=== PATIENT | male | born 1945 | race Caucasian/White ===

== ENCOUNTER 2023-04-11 14:20 | Outpatient (OUT) | payer MEDICARE, SELFPAY ==
--- NOTE | 2023-04-12 13:51 | CONS_ITS ---
CONSULTATION DATE: ??04/12/2023 His last encounter prior to today was on 06/17/2019, causing him to be seen today as a new patient visit. CHIEF COMPLAINT:? Patient presented today with low back pain, worse on the left side; left hip pain and left buttock pain, also on the left side. HISTORY OF PRESENT ILLNESS:? Review of systems, past medical/surgical history were obtained and documented on the health questionnaire and is available upon request. Patient is 78 years old, has had pain in the above mentioned areas for the last six years; however, over the last 1-2 years, he reports having an acceleration of his pain and describes it as 5-6/10 pain, sharp in character, increased with activities such as standing and walking.? He feels most comfortable in the semi- recumbent position.? He denies any change in bowel and bladder habits or new sensorimotor changes in his lower extremities. MEDICATION:? Current medication includes Tylenol at h.s.? He reports that he is unable to tolerate nonsteroidal agents secondary to anticoagulation.? EXAM: ?His examination is notable for patient having no clinical radiculopathy or myelopathy involving the lower extremities.? He had dysesthesia and hyperesthesia overlying the distribution of the left superior gluteal nerve.? He had significant myofascial spasm of his left gluteus medius and moderate myofascial spasm of the lumbar paravertebral muscles also on the left side.? There are no clinical signs consistent with radiculopathy or myelopathy involving his left lower extremity.? He had nothing to suggest facet loading pain clinically on today?s visit. IMPRESSION:? 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 RECOMMENDATIONS:? I have recommended he start baclofen 10 mg pills, half to one b.i.d; aquatic therapy and to proceed with a diagnostic left superior gluteal nerve injection under fluoroscopic guidance.? As part of providing excellent, safe, comprehensive care, the following was completed at our patient's visit: 1. A medication reconciliation and review to ensure accurate knowledge of current/active medications, including asking our patients to inform us about any [id number] medications or herbal remedies/nutritional supplements/alternative remedies. 2. A review to specifically ensure our patients have had annual screening for: elevated body mass index (BMI, see intake chart for exact total), tobacco use, screening for depression, and screening for unhealthy alcohol use.? When screening is concerning, patients are provided with education and the specific recommendation to discuss the concerning health issue and treatment options with their primary care provider. LISBET
== END 2023-04-11 14:21 | disposition home or self-care (01) ==
LOC: PM 14:21
PROVIDERS: PCP Family Medicine; Visit Provider Anesthesiology Pain Medicine
DX: G58.8 Other specified mononeuropathies (principal); G89.29 Other chronic pain; M62.838 Other muscle spasm; M54.50 Low back pain, unspecified; M25.552 Pain in left hip
CPT/HCPCS: G0463

== ENCOUNTER 2023-04-17 07:00 | Outpatient (OUT) | payer MEDICARE, SELFPAY | END 2023-04-17 07:01 | disposition home or self-care (01) | LOC: PST 05-04 17:45 | PROVIDERS: PCP Family Medicine | DX: Z01.818 Encounter for other preprocedural examination (principal); Z86.010 Personal history of colon polyps ==

== ENCOUNTER 2023-04-26 06:19 | Day surgery (SDC) | payer MEDICARE, SELFPAY ==
--- NOTE | 2023-04-26 | OP_ITS ---
OPERATION DATE: ??04/26/2023 PREOPERATIVE DIAGNOSIS:? Personal history of colon polyps. POSTOPERATIVE DIAGNOSIS:? Diminutive cecal polyp, as well as 3 mm descending colon polyp and sigmoid diverticulosis. PROCEDURE:? Colonoscopy to cecum with cold biopsy forceps polypectomy for cecal polyp and cold snare polypectomy for descending colon polyp. SURGEON:? Zhang Vera M.D. ANESTHESIA:? Monitored anesthesia care. ESTIMATED BLOOD LOSS:? Less than 1 mL. INDICATIONS AND CONSENT:? Patient is a 78-year-old male presents for surveillance colonoscopy.? Indications, risks, benefits, alternatives of proceeding with colonoscopy were explained extensively to the patient, including the risks of bleeding, colon perforation or anesthetic complications.? All of his questions were answered.? Informed consent was obtained.? Last colonoscopy was 2016. PROCEDURE:? Patient brought to the operating room, placed in the left lateral decubitus position.? Monitored anesthesia care was provided.? Rectal exam was performed which showed no masses or blood.? The scope was inserted into the anal canal.? Under direct visualization was advanced.? It was advanced to the cecum where cecal markings were clearly identified.? There was noted to be a good prep.? Upon withdrawal of the scope, mucosal surfaces were carefully examined.? Within the cecum, there was noted to be a diminutive, 2 mm polyp that was removed with cold biopsy forceps with good hemostasis.? There were no other mass lesions or inflammatory changes.? There was some moderate sigmoid diverticulosis without inflammatory changes or scarring.? In the descending colon, there was noted to be a 3 mm sessile polyp that was removed with cold snare with good hemostasis.? The scope was retroflexed in the anal canal.? There was no significant hemorrhoidal disease.? Scope was then withdrawn.? Patient tolerated procedure well, was sent to recovery room in good condition. f/u colonoscopy likely in 5 years, but will depend on pathology results. CC:? Master Macdonald
[2023-04-26 06:53] VITALS: BP 117/56; PULSE 62; RESP 20; TEMP 36.4; O2SAT 94; BMI 39.4
[2023-04-26] MEDS: LACTATED RINGER'S SOLUTION 1,000 ML 50 ML IV (07:07)
[2023-04-26 07:52] VITALS: BP 110/49; PULSE 60; RESP 16; O2SAT 94
[2023-04-26 07:57] VITALS: BP 110/49; PULSE 60; RESP 16; O2SAT 94
[2023-04-26 08:07] VITALS: BP 122/73; PULSE 53; RESP 16; O2SAT 96
[2023-04-26 08:22] VITALS: BP 143/67; PULSE 65; RESP 16; O2SAT 97
== END 2023-04-26 08:22 | disposition home or self-care (01) ==
PROVIDERS: PCP Family Medicine; Visit Provider Surgery
PROC: (CPT 45380; principal; 2023-04-26 07:30)
DX: Z86.010 Personal history of colon polyps (principal); K57.30 Diverticulosis of large intestine without perforation or abscess without bleeding; D12.0 Benign neoplasm of cecum; D12.4 Benign neoplasm of descending colon; I48.91 Unspecified atrial fibrillation; I25.10 Atherosclerotic heart disease of native coronary artery without angina pectoris; Z85.46 Personal history of malignant neoplasm of prostate; I10 Essential (primary) hypertension; E66.01 Morbid (severe) obesity due to excess calories; Z79.01 Long term (current) use of anticoagulants; Z79.899 Other long term (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 therapy; Z68.36 Body mass index [BMI] 36.0-36.9, adult
CPT/HCPCS: 45380; 45385; J2704

== ENCOUNTER 2023-04-28 12:15 | Inpatient (IN) | payer MEDICARE, SELFPAY ==
[2023-04-28] VITALS (10 sets, daily range): BP systolic 147–188; BP diastolic 63–88; PULSE 45–94; RESP 14–20; TEMP 36.6–37.2; O2SAT 93–98; BMI 38.0; BMI 39.1; BMI 38.8
--- NOTE | 2023-04-28 12:26 | CT_ITS ---
The [address] [address] Patient Name: JACKSON IQBAL MRN: [id number] date: 1945 Sex: M Assigned Patient Location: ED.MAIN Current Patient Location: [place] Accession/Order Number: [id number] Exam Date: 04/28/2023 12:57 Report Date: 04/29/2023 00:03 At the request of: NATALI SPENCER Procedure: CT head/brain wo con EXAMINATION: CT head/brain wo con HISTORY: fall, pain COMPARISON: No relevant comparison available. TECHNIQUE: Axial CT images were obtained without IV contrast. Dose reduction techniques were achieved by using automated exposure control and/or adjustment of mA and/or kV according to patient size and/or use of iterative reconstruction technique. FINDINGS: BRAIN: No edema, hemorrhage, mass, acute infarction, or inappropriate atrophy. CSF SPACES: No hydrocephalus, subarachnoid hemorrhage, or mass. Appropriate for age. SKULL: No fracture, mass, or other significant visible lesion. SINUSES: No significant mucosal thickening or fluid on the limited views. ORBITS: No appreciable abnormality on the limited views. OTHER: Negative CT/CT head/brain wo con IMPRESSION: 1. No intracranial hemorrhage or appreciable acute abnormality. 2. Age consistent chronic changes. 3. No fracture of the calvarium or scalp hematoma. Preliminary findings were provided to the emergency department at time of imaging. Electronically authenticated by: GUILLERMINA HOPKINS Date: 04/29/2023 00:03
--- NOTE | 2023-04-28 12:26 | CT_ITS ---
The [address] [address] Patient Name: JACKSON IQBAL MRN: [id number] date: 1945 Sex: M Assigned Patient Location: ED.MAIN Current Patient Location: [place] Accession/Order Number: [id number] Exam Date: 04/28/2023 12:57 Report Date: 04/28/2023 19:44 At the request of: NATALI SPENCER Procedure: CT cervical spine wo con EXAMINATION: CT cervical spine wo con HISTORY: pain, fall COMPARISON: No relevant comparison available. TECHNIQUE: Axial, Coronal, and Sagittal images were created without IV contrast. Dose reduction techniques were achieved by using automated exposure control and/or adjustment of mA and/or kV according to patient size and/or use of iterative reconstruction technique. FINDINGS: VERTEBRAL BODIES: Multilevel marked degenerative endplate changes and sclerosis. No fracture spondylolisthesis. FACET JOINTS: Multilevel marked degenerative changes. No disruption or fracture. DISCS: Marked narrowing C3-4 through C7-T1 with large posterior disc-osteophyte complexes causing central canal and foraminal stenosis. CENTRAL CANAL: No evidence of hemorrhage. PARASPINAL AREA: Atherosclerotic disease of the carotid arteries. CT/CT cervical spine wo con IMPRESSION: 1. No appreciable acute abnormality. 2. Multilevel marked degenerative changes of the cervical spine. Electronically authenticated by: GIULLERMINA HOPKINS Date: 04/28/2023 19:44
--- NOTE | 2023-04-28 12:26 | XR_ITS ---
[address] [address] Patient Name: JACKSON IQBAL MRN: [id number] date: 1945 Sex: M Assigned Patient Location: ER Current Patient Location: [place] Accession/Order Number: [id number] Exam Date: 04/28/2023 13:08 Report Date: 04/28/2023 19:41 At the request of: NATALI SPENCER Procedure: XR hip MARIEL EXAMINATION: XR hip MARIEL HISTORY: pain, fall COMPARISON: No relevant comparison available. FINDINGS: RIGHT FINDINGS: BONES: Right hip replacement without hardware fracture or loosening. SOFT TISSUES: No visible soft tissue swelling. OTHER: Negative. LEFT FINDINGS: BONES: Mild degenerative changes of the hip joint. No fracture or dislocation. SOFT TISSUES: No visible soft tissue swelling. OTHER: Negative. XR/XR hip MARIEL IMPRESSION: RIGHT CONCLUSION: No acute bone abnormality. No evidence of hardware failure. LEFT CONCLUSION: No acute bone abnormality. Electronically authenticated by: GUILLERMINA HOPKINS Date: 04/28/2023 19:41
--- NOTE | 2023-04-28 12:26 | ED.LOWEXI1 ---
HPI - Extremity Injury (Lower) General Chief Complaint: Extremity Injury, Lower Stated Complaint: FALL Time Seen by Provider: 04/28/23 12:26 Source: patient Mode of arrival: ambulance Limitations: no limitations History of Present Illness HPI Narrative: This presents emergency department complaining of bilateral hip pain. Patient states he normally ablates with a walker at home. He leaned forward and fell backwards onto his right hip. He complains of pain to bilateral hips. He tried to get up but there was so much pain that EMS had to be called as the patient could not get up. Patient states he hit his head did not have loss of consciousness. He complains of neck pain that he's had chronically. She states he has an outpatient CT scan of the brain and C-spine ordered as an outpatient by his primary care doctor to look after a fall that he sustained also on April 14. Patient denies any nausea, vomiting, diarrhea, constipation, abdominal pain. He denies any chest pain, shortness of breath. He denies any paresthesias or focal weakness. He takes eliquis. Related Data Home Medications Medication Instructions Recorded Confirmed apixaban 5 mg tablet (Eliquis) 5 mg PO BID 04/12/23 04/28/23 atorvastatin 80 mg tablet 80 mg PO DAILY 04/12/23 04/28/23 baclofen 10 mg tablet 10 mg PO BID 04/12/23 04/17/23 carvedilol 12.5 mg tablet 12.5 mg PO BID 04/12/23 04/28/23 furosemide 40 mg tablet 40 mg PO Q12H 04/12/23 04/28/23 hydroxychloroquine 200 mg tablet 200 mg PO DAILY 04/12/23 04/28/23 hyoscyamine sulfate 0.125 mg tablet 0.125 mg PO BID PRN dyspepsia 04/12/23 04/28/23 oxybutynin chloride 5 mg tablet 5 mg PO BID PRN bladder spasms 04/12/23 04/28/23 potassium chloride 10 mEq 10 meq PO DAILY 04/12/23 04/28/23 capsule,extended release Allergies Allergy/AdvReac Type Severity Reaction Status Date / Time No Known Drug Allergies Allergy Verified 04/17/23 13:21 Review of Systems ROS Status of ROS 10 or more systems reviewed and unremarkable except as noted in history and below [facility] Medical History (Updated 04/28/23 @ 17:09 by Laurie Condon MD) Surgical History (Updated 04/17/23 @ 13:49 by Angi Weber) Family History (Updated 04/17/23 @ 13:46 by Angi Weber) Other Family history not known due to adoption Social History (Updated 04/26/23 @ 06:41 by Dia Gillette) Within the past year, how often did you have a drink containing alcohol: never Score interpretation: A score less than 4 is consistent with normal alcohol consumption. Smoking status: Never smoker Non-prescribed substance use: denies use Highest level of school completed/degree received: Associate degree: occupational, technical, vocational program Exam Narrative Exam Narrative: Nurses notes and vital signs reviewed and patient is not hypoxic. General: Nontoxic, Elderly, chronically ill, in no apparent distress. Skin: Warm, dry, no pallor noted. No Rash Head: Normocephalic, atraumatic. Neck: Supple, non-tender. Eye: Pupils are equal, round and EOMI. No scleral icterus. Ears, Nose, Mouth, and Throat: TM clear, no posterior oropharynx erythema or nasal mucosal hypertrophy, uvula is mid-line Oral mucosa is moist Cardiovascular: Regular Rate and Rhythm without murmur, gallop or rub. Respiratory: No accessory muscle use or respiratory distress. Lungs are clear to auscultation, no wheezing, rales or rhonchi Chest Wall: no tenderness Back: No midline thoracic or lumbar vertebral tenderness. No CVA tenderness Musculoskeletal: S2 palpation to the right lateral hip. Range of motion is limited by pain. There is no ecchymosis, erythema, signs of trauma, infection. +2 LE edema. GI: obese, Abdomen is soft, non-distended. Normal bowel sounds. No masses appreciated. No tenderness to palpation. No rebound, guarding, or rigidity noted. Neurological: A&O x4. No cranial nerve dysfunction observed. Moves all extremities. Psychiatric: Cooperative and interactive. Normal mood and affect. Constitutional Vital Signs, click to edit/add: Last Vital Signs Temp 98.8 F 04/28/23 12:22 Pulse 49 L 04/28/23 12:22 Resp 20 04/28/23 12:22 BP 188/72 H 04/28/23 12:22 Pulse Ox 95 04/28/23 12:22 O2 Del Method Nasal Cannula 04/28/23 12:22 Course Vital Signs Vital signs: Vital Signs Temperature 98.8 F 04/28/23 12:22 Pulse Rate 49 L 04/28/23 12:22 Respiratory Rate 20 04/28/23 12:22 Blood Pressure 188/72 H 04/28/23 12:22 Pulse Oximetry 95 04/28/23 12:22 Oxygen Delivery Method Nasal Cannula 04/28/23 12:22 Temperature 98.8 F 04/28/23 12:22 Pulse Rate 49 L 04/28/23 12:22 Respiratory Rate 20 04/28/23 12:22 Blood Pressure 188/72 H 04/28/23 12:22 Pulse Oximetry 95 04/28/23 12:22 Oxygen Delivery Method Nasal Cannula 04/28/23 12:22 MDM - Extremity Injury (Lower) MDM Narrative Medical decision making narrative: Patient given 1 mg of Dilaudid IM. Pain improved however the pain still unable to bear weight. He states he feels very weak, he lives by himself, uses a walker and he is not able to ambulate. CT scan of the pelvis was ordered. The patient will be discussed with Dr. Gould. Differential Diagnosis Differential diagnosis: Likely fracture of femur and fracture of hip Discharge Plan Discharge Chief Complaint: Extremity Injury, Lower Clinical Impression: Frequent falls, Bilateral hip pain Patient Disposition: Admitted as Observation Time of Disposition Decision: 17:09 Condition: Good
[2023-04-28] MEDS: HYDROMORPHONE HCL 1 MG/ML CARTRIDGE IM (12:39)
--- NOTE | 2023-04-28 16:40 | CT_ITS ---
[address] [address] Patient Name: JACKSON IQBAL MRN: [id number] date: 1945 Sex: M Assigned Patient Location: ER Current Patient Location: [place] Accession/Order Number: [id number] Exam Date: 04/28/2023 16:30 Report Date: 04/28/2023 19:47 At the request of: NATALI SPENCER Procedure: CT pelvis wo con EXAMINATION: CT pelvis wo con HISTORY: pain, fall COMPARISON: No relevant comparison available. TECHNIQUE: Axial, Coronal, and Sagittal CT images obtained with IV contrast. Dose reduction techniques were achieved by using automated exposure control and/or adjustment of mA and/or kV according to patient size and/or use of iterative reconstruction technique. FINDINGS: BOWEL: Multiple small diverticula involving the sigmoid colon. No inflammatory changes, free air, free fluid. LYMPH NODES: No adenopathy. URINARY BLADDER: No visible focal wall thickening, lesion, or calculus. PELVIC ORGANS: No visible mass. Pelvic organs appropriate for patient age. ANTERIOR WALL: No hernia. BONES: Right hip replacement. No appreciable fracture, dislocation, or hardware loosening. Moderate degenerative changes of the left hip joint. Marked degenerative disc disease of the visible lower lumbar spine. OTHER: Negative. CT/CT pelvis wo con IMPRESSION: 1. No acute bone abnormality. 2. Right hip replacement without hardware failure. 3. 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 4. Sigmoid diverticulosis. Preliminary findings were provided to the emergency department at time of imaging. Electronically authenticated by: GUILLERMINA HOPKINS Date: 04/28/2023 19:47
[2023-04-28 19:12] LABS: Basophils Percent Auto 0.4 % (0.2-2.0); Eosinophils Absolute Auto 0.1 10^3/uL (0.0-0.7); Eosinophils Percent Auto 1.5 % (0.9-7.0); Hematocrit 35.3 % (42.0-54.0); Hemoglobin 11.6 g/dL (14.0-18.0); Immature Granulocytes Abs Auto 0.02 10^3/uL (0.00-0.03); Immature Granulocytes Pct Auto 0.3 % (0.0-0.5); Lymphocytes Percent Auto 12.7 % (20.5-60.0); Mean Corpuscular HGB Conc 32.9 g/dL (29.9-35.2); Mean Corpuscular Hemoglobin 30.6 pg (25.9-34.0); Mean Corpuscular Volume 93.1 fL (80.0-94.0); Monocytes Absolute Auto 0.7 10^3/uL (0.3-0.8); Monocytes Percent Auto 9.3 % (1.7-12.0); Neutrophils Absolute Auto 6.1 10^3/uL (1.4-6.5); Neutrophils Percent Auto 75.8 % (43.0-75.0); Platelet Count 170 10^3/uL (150-450); Red Blood Count 3.79 10^6/uL (4.70-6.10); Red Cell Distribution Width 13.8 % (11.0-15.0)
[2023-04-28 19:22] LABS: Ammonia 25 umol/L (11-32)
[2023-04-28 19:43] LABS: Alanine Aminotransferase 18 U/L (16-63); Albumin Level 3.2 g/dL (3.4-5.0); Alkaline Phosphatase 73 U/L (46-116); Anion Gap 9.7; Aspartate Amino Transferase 16 U/L (15-37); BUN Creatinine Ratio 10.8; Bilirubin Total 0.7 mg/dL (0.2-1.0); Calcium 8.9 mg/dL (8.5-10.1); Carbon Dioxide 28.3 mmol/L (21.0-32.0); Chloride 108 mmol/L (98-107); Creatine Kinase 159 U/L (39-308); Creatine Kinase MB 2.82 ng/mL (<=3.60); Estimated GFR (African America >60 (>=60); Estimated GFR (Non-African Ame >60 (>=60); Free T3 2.59 pg/mL (2.18-3.98); Globulin 3.1 g/dL; Glucose 90 mg/dL (74-106); Magnesium 1.8 mg/dL (1.8-2.4); Myoglobin 178 ng/mL (16-96); Sodium 143 mmol/L (136-145); Thyroid Stimulating Hormone 1.148 uIU/mL (0.358-3.740); Total Protein 6.3 g/dL (6.4-8.2); Troponin I High Sensitivity 16.1 pg/mL (4.0-76.1)
[2023-04-28] MEDS: BACLOFEN 10 MG TABLET PO (22:28)
[2023-04-29] VITALS (18 sets, daily range): BP systolic 109–169; BP diastolic 54–73; PULSE 44–81; RESP 18–20; TEMP 37–37.3; O2SAT 91–96
[2023-04-29 04:57] LABS: Basophils Percent Auto 0.5 % (0.2-2.0); Eosinophils Absolute Auto 0.3 10^3/uL (0.0-0.7); Eosinophils Percent Auto 4.1 % (0.9-7.0); Hematocrit 32.4 % (42.0-54.0); Hemoglobin 10.5 g/dL (14.0-18.0); Immature Granulocytes Abs Auto 0.02 10^3/uL (0.00-0.03); Immature Granulocytes Pct Auto 0.3 % (0.0-0.5); Lymphocytes Percent Auto 15.7 % (20.5-60.0); Mean Corpuscular HGB Conc 32.4 g/dL (29.9-35.2); Mean Corpuscular Hemoglobin 30.1 pg (25.9-34.0); Mean Corpuscular Volume 92.8 fL (80.0-94.0); Monocytes Absolute Auto 0.7 10^3/uL (0.3-0.8); Monocytes Percent Auto 10.9 % (1.7-12.0); Neutrophils Absolute Auto 4.3 10^3/uL (1.4-6.5); Neutrophils Percent Auto 68.5 % (43.0-75.0); Platelet Count 176 10^3/uL (150-450); Red Blood Count 3.49 10^6/uL (4.70-6.10); Red Cell Distribution Width 13.9 % (11.0-15.0); White Blood Count 6.3 10^3/uL (4.0-11.0)
[2023-04-29 05:57] LABS: Alanine Aminotransferase 16 U/L (16-63); Albumin Globulin Ratio 0.9; Albumin Level 2.8 g/dL (3.4-5.0); Alkaline Phosphatase 63 U/L (46-116); Anion Gap 10.4; Aspartate Amino Transferase 16 U/L (15-37); BUN Creatinine Ratio 12.7; Bilirubin Total 0.5 mg/dL (0.2-1.0); Calcium 8.8 mg/dL (8.5-10.1); Carbon Dioxide 27.5 mmol/L (21.0-32.0); Chloride 108 mmol/L (98-107); Estimated GFR (African America >60 (>=60); Estimated GFR (Non-African Ame >60 (>=60); Globulin 3.1 g/dL; Glucose 93 mg/dL (74-106); Sodium 143 mmol/L (136-145); Total Protein 5.9 g/dL (6.4-8.2); Troponin I High Sensitivity 15.3 pg/mL (4.0-76.1)
[2023-04-29 06:08] LABS: Potassium 2.9 mmol/L (3.5-5.1)
--- NOTE | 2023-04-29 06:23 | PC.NURSE ---
Dr. Pasha Orozco notified of potassium level being 2.9. Will put in order for PO potassium tablets.
[2023-04-29 06:52] LABS: Bilirubin Urine NEGATIVE (NEGATIVE); Blood Urine NEGATIVE (NEGATIVE); Clarity Urine CLEAR (CLEAR); Color Urine YELLOW (YELLOW); Glucose Urine UA NEGATIVE (NEGATIVE); Ketones Urine NEGATIVE (NEGATIVE); Leukocyte Esterase Urine NEGATIVE (NEGATIVE); Nitrite Urine NEGATIVE (NEGATIVE); Protein Urine NEGATIVE (NEG/TRACE); Urobilinogen Urine 0.2 EU/dL (0.2-1.0)
[2023-04-29 06:53] LABS: Bacteria Urine TRACE #/HPF (NONE SEEN); Cast Seen? NONE SEEN #/LPF (NONE SEEN); Crystals Seen? None Seen #/HPF (None Seen); Mucus Urine NONE SEEN (NONE SEEN); RBC Urine 0-2 #/HPF (0-2); Squamous Epithelial Cell Urine RARE #/LPF (NONE/RARE); WBC Urine 0-2 #/HPF (NONE SEEN)
[2023-04-29] MEDS: BACLOFEN 10 MG TABLET PO ×2 (09:06→20:48)
[2023-04-29] MEDS: FUROSEMIDE 40 MG TABLET PO (09:06)
[2023-04-29] MEDS: HYDROXYCHLOROQUINE SULFATE 200 MG TABLET PO (09:06)
[2023-04-29] MEDS: POTASSIUM CHLORIDE 10 MEQ ER TABLET 20 MEQ PO ×2 (09:06→20:47)
[2023-04-29] MEDS: MAGNESIUM OXIDE 400 MG TABLET PO (09:11)
--- NOTE | 2023-04-29 09:27 | P.HP_ITS ---
H&P: HPI History of Present Illness Chief complaint: FALLS Narrative: patient is a 78-year-old male with past medical history of hyperlipidemia, atrial fibrillation, hypertension who presented to the Emergency Room yesterday with a fall. Patient reports that he is been feeling more off lately and has been having more pain symptoms. He recently seen pain management and they started him on baclofen that he was a little uneasy about starting this since he lives at home alone. He fell yesterday backwards from his walker onto his bottom and had been having significant right buttocks pain. Patient presented to the Emergency Room with this pain and CT of the pelvis x-ray of the hip did not show any acute fractures or any change in hardware from previous hip replacement. Patient was admitted for further pain control and PT OT evaluation. At the time of admission patient says that his pain has improved but is still present. He denies any radiation of pain down his right leg and denies any foot drop bowel or bladder incontinence. Patient is also on a blood thinner, eliquis. Denies any head trauma Review of Systems ROS Narrative ROS: a complete review of systems were reviewed with patient and are positive as below or listed in History of Chief Complaint. General: no fever, chills, night sweats Head: no headache, trauma, visual changes, nausea or vomiting Skin: no reported rashes, itching or sores Eyes: no blurriness of vision Ears: no reported hearing loss, vertigo, earache, or tinnitus Throat: no sore throat, hoarseness, swelling of neck, or tongue pain Heart: no chest pain Lungs: no shortness of breath or cough GI: no diarrhea or vomiting/nausea Urinary: no urinary urgency, frequency or pain Neuro: no numbness or tingling HEM: no bleeding issues or bruising ENDO: no thyroid problems Psych: no anxiety or depression [facility] Medical History (Updated 04/29/23 @ 15:15 by Sarita Wilhelm DO) Surgical History Family History Other Family history not known due to adoption Social History Within the past year, how often did you have a drink containing alcohol: never Score interpretation: A score less than 4 is consistent with normal alcohol consumption. 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 [employer] Known occupational exposures/hazards: No Highest level of school completed/degree received: Associate degree: occupational, technical, vocational program Do you want help with school or training: No Are you now , , , , never or living with a partner: In a typical week, how many times do you talk on the telephone with family, friends, or neighbors: 3 or more times per week How often do you get together with friends or relatives: once per week How often do you attend mandaeism or cheondoism services: never Do you belong to any clubs or organizations such as mandaeism groups unions, [employer] or athletic groups, or school groups: no Total score: 1 Score interpretation: A score of less than or equal to 1 indicates the most socially isolated. Little interest or pleasure in doing things: not at all Feeling down, depressed, or hopeless: not at all Feel stressed/tense/nervous/anxious/difficulty sleeping: not at all Due to disability, difficulty making decisions: No Gender Identity: male Meds Home Medications and Allergies Home Medications Medication Instructions Recorded Confirmed Type apixaban 5 mg tablet (Eliquis) 5 mg PO BID 04/12/23 04/28/23 History atorvastatin 80 mg tablet 80 mg PO DAILY 04/12/23 04/28/23 History baclofen 10 mg tablet 10 mg PO BID 04/12/23 04/17/23 History carvedilol 12.5 mg tablet 12.5 mg PO BID 04/12/23 04/28/23 History furosemide 40 mg tablet 40 mg PO Q12H 04/12/23 04/28/23 History hydroxychloroquine 200 mg tablet 200 mg PO DAILY 04/12/23 04/28/23 History hyoscyamine sulfate 0.125 mg tablet 0.125 mg PO BID PRN dyspepsia 04/12/23 04/28/23 History oxybutynin chloride 5 mg tablet 5 mg PO BID PRN bladder spasms 04/12/23 04/28/23 History potassium chloride 10 mEq 10 meq PO DAILY 04/12/23 04/28/23 History capsule,extended release Allergies Allergy/AdvReac Type Severity Reaction Status Date / Time No Known Drug Allergies Allergy Verified 04/17/23 13:21 Exam Narrative Exam Narrative: General: Patient is alert, and oriented to person, place and time with normal affect, proper hygiene Skin: no visible rashes, or ulcers Head: atraumatic, acephalic Eyes: PERRLA, no nystagmus present, conjunctiva clear, no scleral icterus Ears: normal Tympanic Membrane, normal gross auditory acuity Nose: symmetric, no discharge, no maxillary or frontal sinus tenderness Mouth/Throat: no erythema, exudate, or tonsillar enlargement, normal dentition Neck: no masses palpated, normal thyroid, no JVD or audible carotid bruits Heart: Normal rate and rhythm, no murmurs/rubs/gallops Lungs: no audible wheezes, crackles and normal breath sounds all lung ge Abdomen: Normal audible bowel sounds, no distension, No palpable masses, no organomegaly, no rebound/guarding/ or rigidity Musculoskeletal: muscle atrophy noted, ROM is limited due to being in hospital bed, no swelling bilateral lower extremities Vascular: Normal carotid, radial, femoral, posterior tibial, and dorsalis pedis pulses Lymph: no supraclavicular, axillary, or anterior/posterior cervical adenopathy Neuro: CN II-X grossly intact, normal sensation upper and lower extremities Constitutional Vital Signs, click to edit/add: Last Vital Signs Temp 99.1 F 04/29/23 06:00 Pulse 51 L 04/29/23 07:58 Resp 18 04/29/23 06:00 BP 125/55 H 04/29/23 06:00 Pulse Ox 91 L 04/29/23 06:00 O2 Del Method Room Air 04/29/23 06:00 Results Labs Labs: Short CBC 04/28/23 04/29/23 Range/Units 17:37 04:20 WBC 8.0 6.3 (4.0-11.0) 10^3/uL Hgb 11.6 L 10.5 L (14.0-18.0) g/dL Hct 35.3 L 32.4 L (42.0-54.0) % Plt Count 170 176 (150-450) 10^3/uL BMP 04/28/23 04/29/23 19:00 04:20 Sodium 143 143 Potassium 3.0 L 2.9 L* Chloride 108 H 108 H Carbon Dioxide 28.3 27.5 BUN 10.0 10.0 Creatinine 0.93 0.79 Glucose 90 93 Calcium 8.9 8.8 Cardiac Enzymes 04/28/23 Range/Units 19:00 Total Creatine Kinase 159 (39-308) U/L CK-MB (CK-2) 2.82 (<=3.60) ng/mL Liver Function 04/28/23 04/29/23 Range/Units 19:00 04:20 Total Bilirubin 0.7 0.5 (0.2-1.0) mg/dL AST 16 16 (15-37) U/L ALT 18 16 (16-63) U/L Alkaline Phosphatase 73 63 (46-116) U/L Albumin 3.2 L 2.8 L (3.4-5.0) g/dL Urine 04/29/23 Range/Units 05:30 Urine Color Yellow (YELLOW) Urine Clarity Clear (CLEAR) Urine pH 6.0 (5.0-9.0) Ur Specific Chalmers 1.020 (1.005-1.025) Urine Protein Negative (NEG/TRACE) mg/dL Urine Glucose (UA) Negative (NEGATIVE) mg/dL Assessment and Plan Assessment and Plan (1) Frequent falls: Assessment and Plan: could be due to hypotension, decreased HR, hold coreg, pt/ot evaluation (2) Bilateral hip pain: Assessment and Plan: start baclofen, as needed tramadol, no acute fractures (3) Atrial fibrillation: Assessment and Plan: continue eliquis, rate controlled (4) Chronic anticoagulation: (5) Coronary arteriosclerosis: Assessment and Plan: continue atorvastatin (6) Heart failure, diastolic: Assessment and Plan: no acute symptoms, continue lasix (7) Hypertension: (8) Obesity: (9) Hypokalemia: Assessment and Plan: continue to monitor daily and replace Plan full code observation status and is not expected to stay more than 2 midnights, pt/ot eliquis for DVT prophylaxis
[2023-04-29] MEDS: TRAMADOL HCL 50 MG TABLET PO (20:47)
[2023-04-29] MEDS: ACETAMINOPHEN 500 MG TABLET 1000 MG PO (20:47)
[2023-04-29] MEDS: ATORVASTATIN CALCIUM 40 MG TABLET 80 MG PO (20:48)
[2023-04-30] VITALS (21 sets, daily range): BP systolic 126–204; BP diastolic 59–77; PULSE 35–59; RESP 16–18; TEMP 36.6–37.3; O2SAT 91–96
[2023-04-30 05:17] LABS: Basophils Percent Auto 0.4 % (0.2-2.0); Eosinophils Absolute Auto 0.2 10^3/uL (0.0-0.7); Eosinophils Percent Auto 3.3 % (0.9-7.0); Hematocrit 31.9 % (42.0-54.0); Hemoglobin 10.2 g/dL (14.0-18.0); Immature Granulocytes Abs Auto 0.02 10^3/uL (0.00-0.03); Immature Granulocytes Pct Auto 0.3 % (0.0-0.5); Lymphocytes Absolute Auto 1.2 10^3/uL (1.2-3.8); Lymphocytes Percent Auto 16.8 % (20.5-60.0); Mean Corpuscular Volume 93.8 fL (80.0-94.0); Mean Platelet Volume 10.2 fL (9.5-13.5); Monocytes Absolute Auto 0.8 10^3/uL (0.3-0.8); Monocytes Percent Auto 11.9 % (1.7-12.0); Neutrophils Absolute Auto 4.7 10^3/uL (1.4-6.5); Neutrophils Percent Auto 67.3 % (43.0-75.0); Platelet Count 168 10^3/uL (150-450); Red Cell Distribution Width 13.9 % (11.0-15.0)
[2023-04-30 05:39] LABS: Alanine Aminotransferase 14 U/L (16-63); Albumin Globulin Ratio 0.8; Albumin Level 2.6 g/dL (3.4-5.0); Alkaline Phosphatase 64 U/L (46-116); Anion Gap 10.1; Aspartate Amino Transferase 10 U/L (15-37); BUN Creatinine Ratio 15.1; Bilirubin Total 0.4 mg/dL (0.2-1.0); Calcium 8.5 mg/dL (8.5-10.1); Carbon Dioxide 28.1 mmol/L (21.0-32.0); Chloride 110 mmol/L (98-107); Estimated GFR (African America >60 (>=60); Estimated GFR (Non-African Ame >60 (>=60); Globulin 3.1 g/dL; Glucose 103 mg/dL (74-106); Potassium 3.2 mmol/L (3.5-5.1); Sodium 145 mmol/L (136-145); Total Protein 5.7 g/dL (6.4-8.2); Troponin I High Sensitivity 12.7 pg/mL (4.0-76.1)
--- NOTE | 2023-04-30 08:36 | PC.NURSE ---
patient refused breakfast x2. patient states he doesnt usually eat breakfast.
--- NOTE | 2023-04-30 09:37 | P.PN_ITS ---
Progress Note: Subjective Subjective Interval history: patient is a 78-year-old male with past medical history of hyperlipidemia, atrial fibrillation, hypertension who presented to the Emergency Room yesterday with a fall. Patient reports that he is been feeling more off lately and has been having more pain symptoms. He recently seen pain management and they started him on baclofen that he was a little uneasy about starting this since he lives at home alone. He fell yesterday backwards from his walker onto his bottom and had been having significant right buttocks pain. Patient presented to the Emergency Room with this pain and CT of the pelvis x-ray of the hip did not show any acute fractures or any change in hardware from previous hip replacement. Patient was admitted for further pain control and PT OT evaluation. At the time of admission patient says that his pain has improved but is still present. He denies any radiation of pain down his right leg and denies any foot drop bowel or bladder incontinence. Patient is also on a blood thinner, eliquis. Denies any head trauma. This morning is feeling much better, Discussed his low heart rate and snoring/apneic episodes observed by nursing. He follows with Cardiology for his [facility] but has never had issues with low pulse, no chest pain but has been weak. Discussed cardio consult tomorrow and echo. Also discussed Dr. Gould will be back tomorrow. Exam Narrative Exam Narrative: General: Patient is alert, and oriented to person, place and time with normal affect, proper hygiene Skin: no visible rashes, or ulcers Head: atraumatic, acephalic Eyes: PERRLA, no nystagmus present, conjunctiva clear, no scleral icterus Ears: normal Tympanic Membrane, normal gross auditory acuity Nose: symmetric, no discharge, no maxillary or frontal sinus tenderness Mouth/Throat: no erythema, exudate, or tonsillar enlargement, normal dentition Neck: no masses palpated, normal thyroid, no JVD or audible carotid bruits Heart: irregular rate and rhythm, no murmurs/rubs/gallops Lungs: no audible wheezes, crackles and normal breath sounds all lung ge Abdomen: Normal audible bowel sounds, no distension, No palpable masses, no organomegaly, no rebound/guarding/ or rigidity Musculoskeletal: muscle atrophy noted, ROM is limited due to being in hospital bed, no swelling bilateral lower extremities Vascular: Normal carotid, radial, femoral, posterior tibial, and dorsalis pedis pulses Lymph: no supraclavicular, axillary, or anterior/posterior cervical adenopathy Neuro: CN II-X grossly intact, normal sensation upper and lower extremities Constitutional Vital Signs, click to edit/add: Last Vital Signs Temp 97.8 F 04/30/23 04:55 Pulse 50 L 04/30/23 08:00 Resp 16 04/30/23 04:55 BP 153/66 H 04/30/23 04:55 Pulse Ox 93 L 04/30/23 04:55 O2 Del Method Room Air 04/30/23 04:55 Progress Note: Objective Labs Labs: Short CBC 04/30/23 Range/Units 04:50 WBC 7.0 (4.0-11.0) 10^3/uL Hgb 10.2 L (14.0-18.0) g/dL Hct 31.9 L (42.0-54.0) % Plt Count 168 (150-450) 10^3/uL BMP 04/30/23 04:50 Sodium 145 Potassium 3.2 L Chloride 110 H Carbon Dioxide 28.1 BUN 14.0 Creatinine 0.93 Glucose 103 Calcium 8.5 Liver Function 04/30/23 Range/Units 04:50 Total Bilirubin 0.4 (0.2-1.0) mg/dL AST 10 L (15-37) U/L ALT 14 L (16-63) U/L Alkaline Phosphatase 64 (46-116) U/L Albumin 2.6 L (3.4-5.0) g/dL Progress Note: A&P Assessment and Plan (1) Bradycardia with 31-40 beats per minute: Assessment and Plan: patient on Home coreg, this has been held since admission, electrolytes replaced, low potassium resolving, mag normal; I decreased lasix from 40mg daily to 20mg daily, cards consult and echo ordered for tomorrow, follows with [facility] cards; may need outpatient sleep study (2) Frequent falls: Assessment and Plan: could be due to hypotension, decreased HR, hold coreg, pt/ot evaluation (3) Bilateral hip pain: Assessment and Plan: tart baclofen, as needed tramadol, no acute fractures (4) Atrial fibrillation: Assessment and Plan: continue eliquis, rate controlled (5) Chronic anticoagulation: (6) Coronary arteriosclerosis: Assessment and Plan: continue atorvastatin (7) Heart failure, diastolic: Assessment and Plan: no acute symptoms, continue lasix (8) Hypertension: Assessment and Plan: stable (9) Obesity: (10) Hypokalemia: Assessment and Plan: continue to monitor daily and replace Plan full code inpatient status due to worsening condition and new onset bradycardia and is expected to stay more than 2 midnights, pt/ot eliquis for DVT prophylaxis
[2023-04-30] MEDS: HYDROXYCHLOROQUINE SULFATE 200 MG TABLET PO (10:17)
[2023-04-30] MEDS: POTASSIUM CHLORIDE 10 MEQ ER TABLET 20 MEQ PO ×2 (10:18→22:07)
[2023-04-30] MEDS: BACLOFEN 10 MG TABLET PO ×2 (10:18→22:07)
[2023-04-30] MEDS: APIXABAN 5 MG TABLET 2.5 MG PO (10:18)
[2023-04-30] MEDS: TRAMADOL HCL 50 MG TABLET PO (15:11)
[2023-04-30] MEDS: LISINOPRIL 10 MG TABLET PO (15:37)
[2023-04-30] MEDS: ATORVASTATIN CALCIUM 40 MG TABLET 80 MG PO (22:06)
[2023-04-30] MEDS: APIXABAN 5 MG TABLET PO (22:07)
[2023-05-01] VITALS (16 sets, daily range): BP systolic 123–159; BP diastolic 53–95; PULSE 43–77; RESP 16–20; TEMP 36.7–37.3; O2SAT 92–98
[2023-05-01 05:39] LABS: Basophils Percent Auto 0.5 % (0.2-2.0); Eosinophils Absolute Auto 0.3 10^3/uL (0.0-0.7); Eosinophils Percent Auto 3.3 % (0.9-7.0); Hematocrit 32.8 % (42.0-54.0); Hemoglobin 10.3 g/dL (14.0-18.0); Immature Granulocytes Abs Auto 0.02 10^3/uL (0.00-0.03); Immature Granulocytes Pct Auto 0.3 % (0.0-0.5); Lymphocytes Absolute Auto 1.1 10^3/uL (1.2-3.8); Lymphocytes Percent Auto 14.1 % (20.5-60.0); Mean Corpuscular HGB Conc 31.4 g/dL (29.9-35.2); Mean Corpuscular Hemoglobin 29.7 pg (25.9-34.0); Mean Corpuscular Volume 94.5 fL (80.0-94.0); Mean Platelet Volume 10.5 fL (9.5-13.5); Monocytes Absolute Auto 0.9 10^3/uL (0.3-0.8); Monocytes Percent Auto 11.8 % (1.7-12.0); Neutrophils Absolute Auto 5.3 10^3/uL (1.4-6.5); Platelet Count 189 10^3/uL (150-450); Red Blood Count 3.47 10^6/uL (4.70-6.10); Red Cell Distribution Width 14.1 % (11.0-15.0); White Blood Count 7.5 10^3/uL (4.0-11.0)
[2023-05-01 06:07] LABS: Alanine Aminotransferase 15 U/L (16-63); Albumin Globulin Ratio 0.8; Albumin Level 2.6 g/dL (3.4-5.0); Alkaline Phosphatase 65 U/L (46-116); Anion Gap 10.6; Aspartate Amino Transferase 11 U/L (15-37); Bilirubin Total 0.6 mg/dL (0.2-1.0); Calcium 8.5 mg/dL (8.5-10.1); Carbon Dioxide 27.1 mmol/L (21.0-32.0); Chloride 108 mmol/L (98-107); Estimated GFR (African America >60 (>=60); Estimated GFR (Non-African Ame >60 (>=60); Globulin 3.3 g/dL; Glucose 104 mg/dL (74-106); Potassium 3.7 mmol/L (3.5-5.1); Sodium 142 mmol/L (136-145); Total Protein 5.9 g/dL (6.4-8.2)
--- NOTE | 2023-05-01 07:49 | P.PN_ITS ---
Progress Note: Subjective Subjective Interval history: Patient is a still with significant with ambulation. Exam Constitutional Vital Signs, click to edit/add: Last Vital Signs Temp 98.0 F 05/01/23 06:00 Pulse 44 L 05/01/23 06:00 Resp 18 05/01/23 06:00 BP 159/95 H 05/01/23 06:00 Pulse Ox 98 05/01/23 06:00 O2 Del Method Room Air 05/01/23 05:34 Chest Common normals: inspection of chest normal Respiratory Common normals: normal respiratory effort Cardio Common normals: regular rate and regular rhythm Extremity Other: poor range of motion right ankle-check x-ray Progress Note: Objective Labs Labs: Short CBC 05/01/23 Range/Units 04:40 WBC 7.5 (4.0-11.0) 10^3/uL Hgb 10.3 L (14.0-18.0) g/dL Hct 32.8 L (42.0-54.0) % Plt Count 189 (150-450) 10^3/uL BMP 05/01/23 04:40 Sodium 142 Potassium 3.7 Chloride 108 H Carbon Dioxide 27.1 BUN 13.0 Creatinine 0.93 Glucose 104 Calcium 8.5 Liver Function 05/01/23 Range/Units 04:40 Total Bilirubin 0.6 (0.2-1.0) mg/dL AST 11 L (15-37) U/L ALT 15 L (16-63) U/L Alkaline Phosphatase 65 (46-116) U/L Albumin 2.6 L (3.4-5.0) g/dL Progress Note: A&P Assessment and Plan (1) Bradycardia with 31-40 beats per minute: Assessment and Plan: patient on Home coreg, this has been held since admission, electrolytes replaced, low potassium resolving, mag normal; I decreased lasix from 40mg daily to 20mg daily, cards consult and echo ordered for tomorrow, follows with [facility] cards; may need outpatient sleep study (2) Frequent falls: Assessment and Plan: could be due to hypotension, decreased HR, hold coreg, pt/ot evaluation (3) Bilateral hip pain: Assessment and Plan: start baclofen, as needed tramadol, no acute fractures (4) Atrial fibrillation: Assessment and Plan: continue eliquis, rate controlled (5) Chronic anticoagulation: (6) Coronary arteriosclerosis: Assessment and Plan: continue atorvastatin (7) Heart failure, diastolic: Assessment and Plan: no acute symptoms, continue lasix (8) Hypertension: Assessment and Plan: stable (9) Obesity: (10) Hypokalemia: Assessment and Plan: continue to monitor daily and replace Plan full code inpatient status due to worsening condition and new onset bradycardia and is expected to stay more than 2 midnights, pt/ot We will skip the Eliquis now for DVT prophylaxis secondary to frequent falls OT PT evaluation for placement
--- NOTE | 2023-05-01 08:18 | XR_ITS ---
The [address] [address] Patient Name: JACKSON IQBAL MRN: [id number] date: 1945 Sex: M Assigned Patient Location: MS Current Patient Location: MS Accession/Order Number: [id number] Exam Date: 05/01/2023 08:10 Report Date: 05/01/2023 08:39 At the request of: NEO CARRERA Procedure: XR ankle RT 2V PROCEDURE: XR ankle RT 2V COMPARISON: None. HISTORY: ankle pain FINDINGS: BONES:No acute fracture or dislocation. Permeative pattern suggest osteopenia. Mild to moderate degenerative changes with joint space narrowing and marginal osteophyte formation. Moderate plantar enthesopathic spurring of the calcaneus SOFT TISSUES:Negative. No visible soft tissue swelling. EFFUSION:None visible. OTHER: Vascular calcifications XR/XR ankle RT 2V IMPRESSION: Degenerative changes, no acute fracture Electronically authenticated by: NATALIE MOHAN Date: 05/01/2023 08:39
[2023-05-01] MEDS: POTASSIUM CHLORIDE 10 MEQ ER TABLET 20 MEQ PO ×2 (08:35→21:15)
[2023-05-01] MEDS: HYDROXYCHLOROQUINE SULFATE 200 MG TABLET PO (08:35)
[2023-05-01] MEDS: APIXABAN 5 MG TABLET PO ×2 (08:36→21:15)
[2023-05-01] MEDS: FUROSEMIDE 40 MG TABLET 20 MG PO (08:36)
[2023-05-01] MEDS: ORPHENADRINE 60 MG/ 2 ML VIAL 30 MG IV ×2 (08:36→21:15)
--- NOTE | 2023-05-01 11:05 | REH.PTDLY ---
Physical Therapy Daily Note PT Daily Note/Assess Start: 05/01/23 10:54 Freq: Status: Active Protocol: Document 05/01/23 10:54 CIRILO (Rec: 05/01/23 11:05 CIRILO Desktop) Physical Therapy Daily Note/Assessment Time In 10:10 Time Out 10:40 Subjective Pt complains of R hip discomfort but does not rate. Therapeutic Exercise Minutes (minutes) 9 Therapeutic Exercise Units 1 Therapeutic Exercise Treatment B LE exs in chair 10x ea with several cues needed when legs are elevated for exs and proper technique. Therapeutic Activity Minutes (minutes) 14 Therapeutic Activity Units 1 Chair Transfer Ability Maximum Assist,2 Person Assist Therapeutic Activity Comments Attempted sit to stand transfers from chair 3x with Max A. Pt is relying heavily on chair for support and unable to stand up straight. Nurses aide enters room to assist, Max A x2 with pt standing with legs straight and forward flexed and hips. Cues to bring arms to RW, with several cues needed as pt reports he just can't stand, but pt is standing. After several cues, pt brings hands to RW. Cues for gait training with RW Min A x1 and CGA x1, 15 feet around bed. sit to supine Mod Ax1 with B LEs into bed. Total Therapy Minutes 23 Total Physical Therapy Units 2 Daily Note Summary Pt needs several cues during rx for proper form with exs and transfers. Pt seems off at times during conversation. R hip is still uncomfortable per pt.
--- NOTE | 2023-05-01 13:05 | SWNOTE1 ---
SW met with pt to discuss dc needs. Pt lives at home alone, he has 2 daughters who live in [place]. Pt uses a walker at home. Pt states his daughters work, but he can call them for help as needed. Pt is not current with home health. He does have [facility] to get in. Pt and SW spoke with pt in regards to SNF or home health. He did mention doctor spoke with him about it and he is agreeable. Pt's did pass, but he stated she went to rehab at one point. He did talk about [facility] or somewhere in [place] or [place], but wants to talk to daughter first. SW and pt called and left message for daughter. Pt has [employer] and will be a precert. SW to attempt to call daughter again this afternoon. SW did review [place] form with pt, pt voiced understanding, no questions. Pt signed form, original given to pt and copy placed in chart.
--- NOTE | 2023-05-01 13:31 | SWNOTE1 ---
KAMINI spoke with pt's daughter (step-daughter). She does help him out at home as much as she can. She does feel he would benefit from SNF. She does not have a preference. SW did review star ratings from medicare.gov with daughter and she would like to start with [facility] and then it would be [facility] or [facility] as her second/third choice. KAMINI reached out to [facility] to see if they have openings.
--- NOTE | 2023-05-01 14:09 | SWNOTE1 ---
Referral sent to [facility].
[2023-05-01] MEDS: LISINOPRIL 10 MG TABLET PO (14:34)
--- NOTE | 2023-05-01 15:21 | SWNOTE1 ---
[facility] can accept and precert started. SW updated nursing, doctor, pt, and daughter.
[2023-05-01] MEDS: ATORVASTATIN CALCIUM 40 MG TABLET 80 MG PO (21:14)
[2023-05-02] VITALS (8 sets, daily range): BP systolic 143; BP diastolic 81; PULSE 51–71; RESP 16; TEMP 37.1; O2SAT 95
[2023-05-02 04:43] LABS: Basophils Percent Auto 0.4 % (0.2-2.0); Eosinophils Absolute Auto 0.2 10^3/uL (0.0-0.7); Eosinophils Percent Auto 3.1 % (0.9-7.0); Immature Granulocytes Abs Auto 0.02 10^3/uL (0.00-0.03); Immature Granulocytes Pct Auto 0.3 % (0.0-0.5); Lymphocytes Percent Auto 12.4 % (20.5-60.0); Mean Corpuscular HGB Conc 31.3 g/dL (29.9-35.2); Mean Corpuscular Hemoglobin 29.9 pg (25.9-34.0); Mean Corpuscular Volume 95.8 fL (80.0-94.0); Mean Platelet Volume 9.9 fL (9.5-13.5); Monocytes Percent Auto 12.4 % (1.7-12.0); Neutrophils Absolute Auto 5.5 10^3/uL (1.4-6.5); Neutrophils Percent Auto 71.4 % (43.0-75.0); Platelet Count 189 10^3/uL (150-450); Red Blood Count 3.34 10^6/uL (4.70-6.10); Red Cell Distribution Width 14.1 % (11.0-15.0); White Blood Count 7.7 10^3/uL (4.0-11.0)
[2023-05-02 04:58] LABS: Alanine Aminotransferase 16 U/L (16-63); Albumin Globulin Ratio 0.8; Albumin Level 2.6 g/dL (3.4-5.0); Alkaline Phosphatase 62 U/L (46-116); Anion Gap 11.1; Aspartate Amino Transferase 14 U/L (15-37); BUN Creatinine Ratio 16.8; Bilirubin Total 0.9 mg/dL (0.2-1.0); Calcium 8.4 mg/dL (8.5-10.1); Carbon Dioxide 25.9 mmol/L (21.0-32.0); Chloride 108 mmol/L (98-107); Estimated GFR (African America >60 (>=60); Estimated GFR (Non-African Ame >60 (>=60); Globulin 3.3 g/dL; Glucose 99 mg/dL (74-106); Sodium 141 mmol/L (136-145); Total Protein 5.9 g/dL (6.4-8.2)
--- NOTE | 2023-05-02 07:55 | P.PN_ITS ---
Progress Note: Subjective Subjective Interval history: Pain better than previous day Exam Constitutional Vital Signs, click to edit/add: Last Vital Signs Temp 98.8 F 05/02/23 05:17 Pulse 56 L 05/02/23 07:44 Resp 16 05/02/23 05:17 BP 143/81 H 05/02/23 05:17 Pulse Ox 95 05/02/23 05:17 O2 Del Method Room Air 05/02/23 05:17 Documenting provider has reviewed patient's vital signs: yes Common normals: no apparent distress Lymph Lymphatic: no lymphadenopathy noted Respiratory Common normals: normal respiratory effort, no use of accessory muscles and clear to auscultation bilaterally Cardio Common normals: regular rate, regular rhythm and no murmurs Progress Note: Objective Labs Labs: Short CBC 05/02/23 Range/Units 04:32 WBC 7.7 (4.0-11.0) 10^3/uL Hgb 10.0 L (14.0-18.0) g/dL Hct 32.0 L (42.0-54.0) % Plt Count 189 (150-450) 10^3/uL BMP 05/02/23 04:32 Sodium 141 Potassium 4.0 Chloride 108 H Carbon Dioxide 25.9 BUN 16.0 Creatinine 0.95 Glucose 99 Calcium 8.4 L Liver Function 05/02/23 Range/Units 04:32 Total Bilirubin 0.9 (0.2-1.0) mg/dL AST 14 L (15-37) U/L ALT 16 (16-63) U/L Alkaline Phosphatase 62 (46-116) U/L Albumin 2.6 L (3.4-5.0) g/dL Progress Note: A&P Assessment and Plan (1) Bradycardia with 31-40 beats per minute: Assessment and Plan: patient on Home coreg, this has been held since admission, electrolytes replaced, low potassium resolving, mag normal; I decreased lasix from 40mg daily to 20mg daily, cards consult and echo ordered for tomorrow, follows with [facility] cards; may need outpatient sleep study (2) Frequent falls: Assessment and Plan: could be due to hypotension, decreased HR, hold coreg, pt/ot evaluation (3) Bilateral hip pain: Assessment and Plan: start baclofen, as needed tramadol, no acute fractures (4) Atrial fibrillation: Assessment and Plan: continue eliquis, rate controlled (5) Chronic anticoagulation: (6) Coronary arteriosclerosis: Assessment and Plan: continue atorvastatin (7) Heart failure, diastolic: Assessment and Plan: no acute symptoms, continue lasix (8) Hypertension: Assessment and Plan: stable (9) Obesity: (10) Hypokalemia: Assessment and Plan: continue to monitor daily and replace Plan Still planning on rehab. Overall patient's pain is improved. Continue with current medications
[2023-05-02] MEDS: FUROSEMIDE 40 MG TABLET 20 MG PO (08:42)
[2023-05-02] MEDS: POTASSIUM CHLORIDE 10 MEQ ER TABLET 20 MEQ PO (08:42)
[2023-05-02] MEDS: ORPHENADRINE 60 MG/ 2 ML VIAL 30 MG IV (08:42)
[2023-05-02] MEDS: LISINOPRIL 10 MG TABLET 20 MG PO (08:42)
[2023-05-02] MEDS: HYDROXYCHLOROQUINE SULFATE 200 MG TABLET PO (08:43)
[2023-05-02] MEDS: APIXABAN 5 MG TABLET PO (08:43)
--- NOTE | 2023-05-02 09:13 | PM.DS1 ---
DS: Providers Provider Date of admission: 04/28/23 18:17 Primary care physician: Javier Gould MD Consults: 04/28/23 17:35 Consult to Extension Specialist Routine Reason for consult:: nursing home Occupational Therapy Eval and Treat Routine Physical Therapy Eval and Treat Routine 04/30/23 09:33 Physical Therapy Eval and Treat Routine 04/30/23 10:49 Consult to Cardiology Routine Consulting Provider: Hospitalist DS: Diagnosis Discharge Diagnosis (1) Bradycardia with 31-40 beats per minute: (2) Frequent falls: (3) Bilateral hip pain: (4) Atrial fibrillation: (5) Chronic anticoagulation: (6) Coronary arteriosclerosis: (7) Heart failure, diastolic: (8) Hypertension: (9) Obesity: (10) Hypokalemia: DS: Summary Hospital Course Hospital Course: Patient was admitted with fall. Increasing weakness. Had severe pain in his right hip and right ankle. Unable to ambulate initially. He is improved with that somewhat during the last 24 hours. The patient is in need of rehab. Only other complication was patient has some severe bradycardia. Not symptomatic but down into the 30s. Medications were adjusted. His heart rate is in the 50s and 60s without symptoms. At this point he is stable for discharge to rehab. I will follow patient at rehab. Medications see list. Time Spent with Patient Time attestation: Total time spent providing and/or coordinating discharge services: Exam Narrative Exam Narrative: See physical exam from progress note written earlier today Constitutional Vital Signs, click to edit/add: Last Vital Signs Temp 98.8 F 05/02/23 05:17 Pulse 56 L 05/02/23 07:44 Resp 16 05/02/23 05:17 BP 143/81 H 05/02/23 05:17 Pulse Ox 95 05/02/23 05:17 O2 Del Method Room Air 05/02/23 05:17 DS: Data Data Completed and Pending Labs on day of discharge: Labs from last 24 hours 05/02/23 04:32 WBC 7.7 RBC 3.34 L Hgb 10.0 L Hct 32.0 L MCV 95.8 H MCH 29.9 MCHC 31.3 RDW 14.1 Plt Count 189 MPV 9.9 Neut % (Auto) 71.4 Lymph % (Auto) 12.4 L [place] % (Auto) 12.4 H Eos % (Auto) 3.1 Baso % (Auto) 0.4 Neut # (Auto) 5.5 Lymph # (Auto) 1.0 L [place] # (Auto) 1.0 H Eos # (Auto) 0.2 Baso # (Auto) 0.0 Abs Immat Gran (auto) 0.02 Imm/Tot Granulo (auto) 0.3 Sodium 141 Potassium 4.0 Chloride 108 H Carbon Dioxide 25.9 Anion Gap 11.1 BUN 16.0 Creatinine 0.95 Est GFR ( Amer) >60 Est GFR (Non-Af Amer) >60 BUN/Creatinine Ratio 16.8 Glucose 99 Calcium 8.4 L Total Bilirubin 0.9 AST 14 L ALT 16 Alkaline Phosphatase 62 Total Protein 5.9 L Albumin 2.6 L Globulin 3.3 Albumin/Globulin Ratio 0.8 Discharge Plan Discharge Condition: Good Discharge Medications: New acetaminophen [Tylenol Extra Strength] 500 mg Tablet 1,000 mg PO Q6H PRN (Reason: Pain Scale 1-3) Qty: 120 0RF lisinopril 10 mg Tablet 20 mg PO DAILY Qty: 30 0RF potassium chloride [Klor-Con M10] 10 mEq Tablet,Er Particles/Crystals 20 meq PO BID Qty: 60 11RF Continued Eliquis 5 mg tablet 5 mg PO BID hydroxychloroquine 200 mg tablet 200 mg PO DAILY furosemide 40 mg tablet 40 mg PO Q12H potassium chloride 10 mEq capsule, extended release 10 meq PO DAILY atorvastatin 80 mg tablet 80 mg PO DAILY oxybutynin chloride 5 mg tablet 5 mg PO BID PRN (Reason: bladder spasms) hyoscyamine sulfate 0.125 mg tablet 0.125 mg PO BID PRN (Reason: dyspepsia) baclofen 10 mg tablet 10 mg PO BID Patient Comments: Has not started taking yet Rx Instructions: 1/2 to 1 tab twice daily Discontinued carvedilol 12.5 mg tablet 12.5 mg PO BID Rx Instructions: must administer with a meal/food Forms: Portal Instructions
--- NOTE | 2023-05-02 09:19 | SWNOTE1 ---
SW received message from [facility] and pt is approved to go.
--- NOTE | 2023-05-02 10:55 | SWNOTE1 ---
SW did reach out to doctor and pt is stable for discharge today. KAMINI sent over dc med rec to [facility]. KAMINI completed HENS and updated packet. KAMINI set up trips transport for 3-3:30.
--- NOTE | 2023-05-02 10:58 | SWNOTE1 ---
SW updated nursing, [facility], and maya rodriguez pr time and approval.
--- NOTE | 2023-05-02 11:13 | REH.PTDLY ---
Physical Therapy Daily Note PT Daily Note/Assess Start: 05/01/23 10:54 Freq: Status: Active Protocol: Document 05/02/23 11:08 CIRILO (Rec: 05/02/23 11:13 CIRILO Desktop) Physical Therapy Daily Note/Assessment Time In 10:16 Time Out 10:39 Pain Level 0 Pain Level 0 Subjective Pt sitting up in chair, says he's been up for maybe an hour or more. Therapeutic Exercise Minutes (minutes) 8 Therapeutic Exercise Units 1 Therapeutic Exercise Treatment Instructed pt in B LE seated exs 10-15x ea for improved leg strength with demo and cues for larger ROM with LAQ. Therapeutic Activity Minutes (minutes) 15 Therapeutic Activity Units 1 Chair Transfer Ability Moderate Assist Therapeutic Activity Comments Cues with sit to stand transfers to bring legs back and scoot towards edge of chair. LEATHER CARVER on L side to assist pt. Several cues needed, pt attempts 4x to stand with cues for pt to bring hands to RW as his legs are extended and he is standing. Pt states he cannot do so due to bad wrists . Went to get nursing, nursing states pt transfers just fine for them. Nurse enters room and pt is able to stand for nurse on first attempt. Cues for gait training with RW and pt hesitates but does then ambulate CGA-Min A with RW 35 feet with cues. Returns to chair with cues to reach back and not fall into chair. Total Therapy Minutes 23 Total Physical Therapy Units 2 Daily Note Summary Pt informed he gets to go to [facility] today and his response is 'can't I stay another day.' Pt seems to behave differently with nursing compared to therapist today. Several cues needed for pt to perform gait/ transfers safely.
== END 2023-05-02 15:53 | DRG 309 ==
LOC: ER 18:43 → MS 23:33
PROVIDERS: Admitting Provider Family Medicine; Emergency Provider Emergency Medicine; PCP Family Medicine; Visit Provider Family Medicine
DX: R00.1 Bradycardia, unspecified (principal); I50.32 Chronic diastolic (congestive) heart failure; I11.0 Hypertensive heart disease with heart failure; I48.91 Unspecified atrial fibrillation; I25.10 Atherosclerotic heart disease of native coronary artery without angina pectoris; Z79.01 Long term (current) use of anticoagulants; Z79.899 Other long term (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 therapy; Z68.36 Body mass index [BMI] 36.0-36.9, adult; Z91.81 History of falling; M25.552 Pain in left hip; M25.551 Pain in right hip; E87.6 Hypokalemia; E78.5 Hyperlipidemia, unspecified; W18.39XA Other fall on same level, initial encounter; Z96.641 Presence of right artificial hip joint; E66.9 Obesity, unspecified; D12.4 Benign neoplasm of descending colon; D12.0 Benign neoplasm of cecum; Z86.010 Personal history of colon polyps
CPT/HCPCS: 36415; 70450; 72125; 72192; 73522; 73600; 80053; 81001; 82140; 82550; 82553; 83605; 83735; 83874; 83880; 84436; 84443; 84481; 84484; 85025; 87086; 88305; 94667; 94668; 94761; 96372; 96374; 96376; 97110; 97162; 97165; 97530; 97535; 99285; J1170; J2704

== ENCOUNTER 2023-05-15 00:49 | Outpatient (OUT) | payer MEDICARE, SELFPAY ==
[2023-05-15 08:09] LABS: Basophils Absolute Auto 0.1 10^3/uL (0.0-0.1); Basophils Percent Auto 0.8 % (0.2-2.0); Eosinophils Absolute Auto 0.3 10^3/uL (0.0-0.7); Hematocrit 36.8 % (42.0-54.0); Hemoglobin 11.6 g/dL (14.0-18.0); Immature Granulocytes Abs Auto 0.03 10^3/uL (0.00-0.03); Immature Granulocytes Pct Auto 0.5 % (0.0-0.5); Lymphocytes Percent Auto 16.2 % (20.5-60.0); Mean Corpuscular HGB Conc 31.5 g/dL (29.9-35.2); Mean Corpuscular Hemoglobin 30.5 pg (25.9-34.0); Mean Corpuscular Volume 96.8 fL (80.0-94.0); Mean Platelet Volume 10.2 fL (9.5-13.5); Monocytes Absolute Auto 0.6 10^3/uL (0.3-0.8); Neutrophils Absolute Auto 4.4 10^3/uL (1.4-6.5); Neutrophils Percent Auto 68.5 % (43.0-75.0); Platelet Count 282 10^3/uL (150-450); Red Cell Distribution Width 14.6 % (11.0-15.0); White Blood Count 6.4 10^3/uL (4.0-11.0)
[2023-05-15 08:12] LABS: INR 0.97; Partial Thromboplastin Time 28.6 sec (22.3-36.2); Prothrombin Time 10.3 sec (9.0-11.6)
== END 2023-05-15 22:00 | disposition home or self-care (01) ==
LOC: LAB 05-19 08:15
PROVIDERS: PCP Family Medicine; Visit Provider Family Medicine
DX: R60.0 Localized edema (principal); L98.8 Other specified disorders of the skin and subcutaneous tissue
CPT/HCPCS: 36415; 85025; 85610; 85730

== ENCOUNTER 2023-05-31 02:36 | Outpatient (REF) | payer MEDICARE, SELFPAY ==
[2023-05-31 09:26] LABS: Clarity Urine CLEAR (CLEAR); Color Urine DK. RED (YELLOW)
[2023-05-31 09:35] LABS: Protein Urine COLOR INTERFERENCE mg/dL (NEG/TRACE); pH Urine COLOR INTERFERENCE (5.0-9.0)
[2023-05-31 09:36] LABS: Bilirubin Urine COLOR INTERFERENCE (NEGATIVE); Blood Urine COLOR INTERFERENCE (NEGATIVE); Glucose Urine UA COLOR INTERFERENCE mg/dL (NEGATIVE); Ketones Urine COLOR INTERFERENCE mg/dL (NEGATIVE); Leukocyte Esterase Urine COLOR INTERFERENCE (NEGATIVE); Nitrite Urine COLOR INTERFERENCE (NEGATIVE); Urine Microscopic Indicated YES; Urobilinogen Urine COLOR INTERFERENCE EU/dL (0.2-1.0)
[2023-05-31 10:19] LABS: Bacteria Urine TRACE #/HPF (NONE SEEN); Cast Seen? NONE SEEN #/LPF (NONE SEEN); Crystals Seen? None Seen #/HPF (None Seen); Mucus Urine NONE SEEN (NONE SEEN); RBC Urine >100 #/HPF (0-2); Squamous Epithelial Cell Urine FEW #/LPF (NONE/RARE); Urine Culture Indicated ALREADY ORDERED
== END 2023-05-31 02:37 | disposition home or self-care (01) ==
LOC: LAB 02:36
PROVIDERS: PCP Family Medicine; Visit Provider Family Medicine
DX: R31.9 Hematuria, unspecified (principal)
CPT/HCPCS: 81001; 87086; 87150; 87186

== ENCOUNTER 2023-06-02 02:43 | Outpatient (REF) | payer MEDICARE, SELFPAY ==
[2023-06-02 09:17] LABS: Basophils Percent Auto 0.8 % (0.2-2.0); Eosinophils Absolute Auto 0.2 10^3/uL (0.0-0.7); Eosinophils Percent Auto 4.2 % (0.9-7.0); Hematocrit 36.8 % (42.0-54.0); Hemoglobin 11.4 g/dL (14.0-18.0); Immature Granulocytes Abs Auto 0.01 10^3/uL (0.00-0.03); Immature Granulocytes Pct Auto 0.2 % (0.0-0.5); Mean Corpuscular Hemoglobin 30.1 pg (25.9-34.0); Mean Corpuscular Volume 97.1 fL (80.0-94.0); Mean Platelet Volume 10.6 fL (9.5-13.5); Monocytes Absolute Auto 0.5 10^3/uL (0.3-0.8); Monocytes Percent Auto 9.3 % (1.7-12.0); Neutrophils Absolute Auto 3.5 10^3/uL (1.4-6.5); Neutrophils Percent Auto 66.5 % (43.0-75.0); Platelet Count 200 10^3/uL (150-450); Red Blood Count 3.79 10^6/uL (4.70-6.10); Red Cell Distribution Width 14.4 % (11.0-15.0); White Blood Count 5.3 10^3/uL (4.0-11.0)
[2023-06-02 10:24] LABS: Anion Gap 12.5; BUN Creatinine Ratio 15.8; Calcium 9.2 mg/dL (8.5-10.1); Carbon Dioxide 25.5 mmol/L (21.0-32.0); Chloride 107 mmol/L (98-107); Estimated GFR (African America >60 (>=60); Estimated GFR (Non-African Ame >60 (>=60); Glucose 93 mg/dL (74-106); Sodium 141 mmol/L (136-145)
== END 2023-06-02 02:44 | disposition home or self-care (01) ==
LOC: LAB 02:43
PROVIDERS: PCP Family Medicine; Visit Provider Family Medicine
DX: I48.91 Unspecified atrial fibrillation (principal)
CPT/HCPCS: 36415; 80048; 85025

== ENCOUNTER 2023-06-14 15:14 | Outpatient (OUT) | payer MEDICARE, SELFPAY ==
[2023-06-14 15:59] LABS: Basophils Absolute Auto 0.1 10^3/uL (0.0-0.1); Basophils Percent Auto 0.7 % (0.2-2.0); Eosinophils Absolute Auto 0.1 10^3/uL (0.0-0.7); Eosinophils Percent Auto 1.5 % (0.9-7.0); Hematocrit 37.7 % (42.0-54.0); Hemoglobin 11.5 g/dL (14.0-18.0); Immature Granulocytes Abs Auto 0.03 10^3/uL (0.00-0.03); Immature Granulocytes Pct Auto 0.4 % (0.0-0.5); Lymphocytes Absolute Auto 1.2 10^3/uL (1.2-3.8); Lymphocytes Percent Auto 15.9 % (20.5-60.0); Mean Corpuscular HGB Conc 30.5 g/dL (29.9-35.2); Mean Corpuscular Hemoglobin 30.6 pg (25.9-34.0); Mean Corpuscular Volume 100.3 fL (80.0-94.0); Mean Platelet Volume 9.9 fL (9.5-13.5); Monocytes Absolute Auto 0.6 10^3/uL (0.3-0.8); Monocytes Percent Auto 7.8 % (1.7-12.0); Neutrophils Absolute Auto 5.4 10^3/uL (1.4-6.5); Neutrophils Percent Auto 73.7 % (43.0-75.0); Platelet Count 249 10^3/uL (150-450); Red Blood Count 3.76 10^6/uL (4.70-6.10); Red Cell Distribution Width 14.2 % (11.0-15.0); White Blood Count 7.3 10^3/uL (4.0-11.0)
[2023-06-14 16:03] LABS: Bilirubin Urine NEGATIVE (NEGATIVE); Blood Urine LARGE (NEGATIVE); Clarity Urine CLEAR (CLEAR); Color Urine LT. YELLOW (YELLOW); Glucose Urine UA NEGATIVE (NEGATIVE); Ketones Urine NEGATIVE (NEGATIVE); Leukocyte Esterase Urine TRACE (NEGATIVE); Nitrite Urine NEGATIVE (NEGATIVE); Protein Urine TRACE mg/dL (NEG/TRACE); Urobilinogen Urine 0.2 EU/dL (0.2-1.0); pH Urine 5.5 (5.0-9.0)
[2023-06-14 16:07] LABS: INR 0.95; Partial Thromboplastin Time 27.4 sec (22.3-36.2); Prothrombin Time 10.1 sec (9.0-11.6)
[2023-06-14 16:19] LABS: Bacteria Urine TRACE #/HPF (NONE SEEN); Cast Seen? SEEN #/LPF (NONE SEEN); Crystals Seen? None Seen #/HPF (None Seen); Hyaline Casts Urine FEW; RBC Urine 50-75 #/HPF (0-2); Squamous Epithelial Cell Urine RARE #/LPF (NONE/RARE)
[2023-06-14 16:20] LABS: Mucus Urine TRACE (NONE SEEN)
[2023-06-14 16:26] LABS: Alanine Aminotransferase 23 U/L (16-63); Albumin Globulin Ratio 0.9; Albumin Level 3.5 g/dL (3.4-5.0); Alkaline Phosphatase 95 U/L (46-116); Anion Gap 13.7; Aspartate Amino Transferase 16 U/L (15-37); Bilirubin Total 0.4 mg/dL (0.2-1.0); Calcium 9.5 mg/dL (8.5-10.1); Carbon Dioxide 23.7 mmol/L (21.0-32.0); Chloride 105 mmol/L (98-107); Estimated GFR (African America 48 (>=60); Estimated GFR (Non-African Ame 40 (>=60); Globulin 3.7 g/dL; Glucose 84 mg/dL (74-106); Potassium 5.4 mmol/L (3.5-5.1); Sodium 137 mmol/L (136-145); Total Protein 7.2 g/dL (6.4-8.2)
== END 2023-06-14 15:15 | disposition home or self-care (01) ==
LOC: LAB 15:16
PROVIDERS: PCP Family Medicine; Visit Provider Family Medicine
DX: D68.9 Coagulation defect, unspecified (principal)
CPT/HCPCS: 36415; 80053; 81001; 85025; 85610; 85730; 87086

== ENCOUNTER 2023-06-15 10:25 | Observation (INO) | payer MEDICARE, SELFPAY ==
[2023-06-15] VITALS (12 sets, daily range): BP systolic 93–143; BP diastolic 49–66; PULSE 48–71; RESP 16–20; TEMP 36.6–37.1; O2SAT 94–99; BMI 31.6
--- NOTE | 2023-06-15 10:45 | XR_ITS ---
The [address] [address] Patient Name: JACKSON IQBAL MRN: [id number] date: 1945 Sex: M Assigned Patient Location: ER Current Patient Location: ER Accession/Order Number: [id number] Exam Date: 06/15/2023 11:00 Report Date: 06/15/2023 11:31 At the request of: SABINO VO Procedure: XR knee RT 4V EXAM: XR knee RT 4V HISTORY: fall COMPARISON: None. TECHNIQUE: 3 views of the right knee. FINDINGS: Bones: No acute or aggressive appearing bony lesion. Joints: Normal alignment. Severe tricompartmental osteoarthritis. There is joint effusion. Soft tissues: Unremarkable. XR/XR knee RT 4V IMPRESSION: No evidence of fracture. Electronically authenticated by: JEFFY PUAL Date: 06/15/2023 11:31
--- NOTE | 2023-06-15 10:45 | CT_ITS ---
The [address] [address] Patient Name: JACKSON IQBAL MRN: [id number] date: 1945 Sex: M Assigned Patient Location: ER Current Patient Location: ER Accession/Order Number: [id number] Exam Date: 06/15/2023 11:00 Report Date: 06/15/2023 11:40 At the request of: SABINO VO Procedure: CT knee LT wo con EXAM: CT pelvis wo con, CT knee LT wo con HISTORY: pain COMPARISON: 04/28/2023 TECHNIQUE: CT imaging was performed of the pelvis and left knee without intravenous contrast. Multiplanar reformats were performed. Dose reduction techniques were achieved by using automated exposure control and/or adjustment of mA and/or kV according to patient size and/or use of iterative reconstruction technique. FINDINGS: Status post right total hip arthroplasty. No hardware fracture or loosening. There is no acute fracture or dislocation of the pelvis . There is osteoarthritis of the bilateral sacroiliac and left hip joint and visualized lower lumbar spine. No acute finding of the visualized pelvic visceral organs. The soft tissue is unremarkable. No acute fracture or dislocation of the left knee. There is moderate to severe tricompartmental osteoarthritis characterized by joint space narrowing and marginal osteophytes there is knee joint effusion. Visualized quadriceps and patellar tendons are normal. 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 The soft tissue is unremarkable. CT/CT knee LT wo con IMPRESSION: No acute fracture or dislocation. 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 Electronically authenticated by: JEFFY PAUL Date: 06/15/2023 11:40
--- NOTE | 2023-06-15 10:59 | CT_ITS ---
The [address] [address] Patient Name: JACKSON IQBAL MRN: [id number] date: 1945 Sex: M Assigned Patient Location: ER Current Patient Location: ER Accession/Order Number: [id number] Exam Date: 06/15/2023 11:00 Report Date: 06/15/2023 11:40 At the request of: SABINO VO Procedure: CT pelvis wo con EXAM: CT pelvis wo con, CT knee LT wo con HISTORY: pain COMPARISON: 04/28/2023 TECHNIQUE: CT imaging was performed of the pelvis and left knee without intravenous contrast. Multiplanar reformats were performed. Dose reduction techniques were achieved by using automated exposure control and/or adjustment of mA and/or kV according to patient size and/or use of iterative reconstruction technique. FINDINGS: Status post right total hip arthroplasty. No hardware fracture or loosening. There is no acute fracture or dislocation of the pelvis . There is osteoarthritis of the bilateral sacroiliac and left hip joint and visualized lower lumbar spine. No acute finding of the visualized pelvic visceral organs. The soft tissue is unremarkable. No acute fracture or dislocation of the left knee. There is moderate to severe tricompartmental osteoarthritis characterized by joint space narrowing and marginal osteophytes there is knee joint effusion. Visualized quadriceps and patellar tendons are normal. 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 The soft tissue is unremarkable. CT/CT pelvis wo con IMPRESSION: No acute fracture or dislocation. 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 Electronically authenticated by: JEFFY PAUL Date: 06/15/2023 11:40
--- NOTE | 2023-06-15 11:52 | ED.FALL1 ---
HPI - Fall General Chief Complaint: Extremity Injury, Lower Stated Complaint: LT KNEE PAIN/FALL Time Seen by Provider: 06/15/23 10:39 History of Present Illness HPI Narrative: Presenting to us after he had a fall yesterday he lives by himself and he have 2 steps at home when he was trying to get from the garage to the house he apparently fell down he fell in both knees complaining of left knee more than the right knee pain, he has not been able to put weight on his left knee because of the pain The patient have no other complaints although he did mention that he have a history of chronic right hip pain with no acute changes Related Data Home Medications Medication Instructions Recorded Confirmed apixaban 5 mg tablet (Eliquis) 5 mg PO BID 04/12/23 04/28/23 atorvastatin 80 mg tablet 80 mg PO .QHS 04/12/23 05/02/23 baclofen 10 mg tablet 10 mg PO BID 04/12/23 04/17/23 furosemide 40 mg tablet 40 mg PO Q12H 04/12/23 04/28/23 hydroxychloroquine 200 mg tablet 200 mg PO DAILY 04/12/23 04/28/23 hyoscyamine sulfate 0.125 mg tablet 0.125 mg PO BID PRN dyspepsia 04/12/23 04/28/23 oxybutynin chloride 5 mg tablet 5 mg PO BID PRN bladder spasms 04/12/23 04/28/23 potassium chloride 10 mEq 10 meq PO DAILY 04/12/23 04/28/23 capsule,extended release Previous Rx's Medication Instructions Recorded acetaminophen 500 mg tablet 1,000 mg PO Q6H PRN Pain Scale 1-3 05/02/23 (Tylenol Extra Strength) #120 tabs lisinopril 10 mg tablet 20 mg PO DAILY #30 tabs 05/02/23 potassium chloride 10 mEq 20 meq PO BID #60 tabs 05/02/23 tablet,extended release(part/cryst) (Klor-Con M) Allergies Allergy/AdvReac Type Severity Reaction Status Date / Time No Known Drug Allergies Allergy Verified 06/15/23 10:29 Review of Systems ROS Status of ROS 10 or more systems reviewed and unremarkable except as noted in history and below [facility] Medical History (Updated 06/15/23 @ 11:58 by Charo Sinclair MD) Surgical History Family History Other Family history not known due to adoption Social History Within the past year, how often did you have a drink containing alcohol: never Score interpretation: A score less than 4 is consistent with normal alcohol consumption. 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 Known occupational exposures/hazards: No Highest level of school completed/degree received: Associate degree: occupational, technical, vocational program Do you want help with school or training: No Are you now , , , , never or living with a partner: In a typical week, how many times do you talk on the telephone with family, friends, or neighbors: 3 or more times per week How often do you get together with friends or relatives: once per week How often do you attend jehovah's witness or roman catholic services: never Do you belong to any clubs or organizations such as jehovah's witness groups unions, [employer] or athletic groups, or school groups: no Total score: 1 Score interpretation: A score of less than or equal to 1 indicates the most socially isolated. Little interest or pleasure in doing things: not at all Feeling down, depressed, or hopeless: not at all Feel stressed/tense/nervous/anxious/difficulty sleeping: not at all Due to disability, difficulty making decisions: No Gender Identity: male Exam Narrative Exam Narrative: Nurses notes and vital signs reviewed and patient is not hypoxic. General: Well-appearing and in no apparent distress. Skin: Warm, dry, no pallor noted. No rash. Head: Normocephalic, atraumatic. Neck: Supple, non-tender. Eye: Pupils are equal, round and EOMI. No scleral icterus. Ears, Nose, Mouth, and Throat: TM are clear, no nasal mucosal hypertrophy. Oral mucosa is moist, no posterior oropharynx erythema, uvula is mid-line Cardiovascular: Regular Rate and Rhythm without murmur, gallop or rub. Respiratory: No accessory muscle use or respiratory distress. Lungs are clear to auscultation, no wheezing, rales or rhonchi Chest Wall: no tenderness Back: No midline thoracic or lumbar vertebral tenderness. No CVA tenderness Musculoskeletal: Patient have extensive swelling of the left knee and limitation due to double the size of the right knee and the patient still have some tenderness on the palpation of the patella on the right side but on the left side the patient have limited flexion due to the effusion, no open wounds and there is tenderness on palpation of the patella as well GI: Abdomen is soft, non-distended. Normal bowel sounds. No masses appreciated. No tenderness to palpation. No rebound, guarding, or rigidity noted. Neurological: A&O x4. No cranial nerve dysfunction observed. No truncal ataxia. Moves all extremities. Sensation intact. Psychiatric: Cooperative and interactive. Normal mood and affect. Constitutional Vital Signs, click to edit/add: Last Vital Signs Temp 98 F 06/15/23 10:27 Pulse 71 06/15/23 10:27 Resp 16 06/15/23 10:27 BP 128/65 06/15/23 10:27 Pulse Ox 99 06/15/23 10:27 O2 Del Method Room Air 06/15/23 10:27 Course Vital Signs Vital signs: Vital Signs Temperature 98 F 06/15/23 10:27 Pulse Rate 71 06/15/23 10:27 Respiratory Rate 16 06/15/23 10:27 Blood Pressure 128/65 06/15/23 10:27 Pulse Oximetry 99 06/15/23 10:27 Oxygen Delivery Method Room Air 06/15/23 10:27 Temperature 98 F 06/15/23 10:27 Pulse Rate 71 06/15/23 10:27 Respiratory Rate 16 06/15/23 10:27 Blood Pressure 128/65 06/15/23 10:27 Pulse Oximetry 99 06/15/23 10:27 Oxygen Delivery Method Room Air 06/15/23 10:27 MDM - Fall MDM Narrative Medical decision making narrative: The patient x-ray of the right knee as well as a CT of the left knee showed no acute significant pathology but my concern of the fact that the patient has not been able to get out of the bed since yesterday and with the swelling and the fact that I want him to have an Alvin wrap or knee immobilizer he is not going to be managing his daily activity and able to take care of him self getting out of the bed at home alone The patient will be admitted for physical therapy assessment and pain management Discharge Plan Discharge Chief Complaint: Extremity Injury, Lower Clinical Impression: Contusion of knee, Effusion of bursa of left knee, Acute bilateral knee pain, Fall Patient Disposition: Admitted As Inpatient Time of Disposition Decision: 11:58
--- NOTE | 2023-06-15 12:49 | PC.NURSE ---
1230 - Called pt's daughter, Daya, to inform her of her fathers admission. She verbally understands, and denies any questions.
--- NOTE | 2023-06-15 13:53 | SWNOTE1 ---
KAMINI met with pt to discuss dc needs. Pt's daughter was in room as well. Pt lives at home by himself, but his daughter lives about 5 minutes away or so. Pt's daughter does do his grocery shopping for him, he does not drive. Pt does use a walker at home at all times. He stated he can walk with walker, just can't cook a 3 course meal while standing up. Pt did go to [facility] back in April for rehab and he just got out about 2 weeks ago. Pt as alright his experience there. Pt currently has [facility] coming in to the home. KAMINI explained to pt and his daughter that depending on what therapy recommends we will see if he is able to return home with HH or if he needs SNF again. KAMINI did give pt and daughter [email or web address] star rating list and let him know [facility] does take [facility] case by case, last time they were not able to. Pt and daughter voiced understanding. SW to reach out to Dr. Gould to make sure PT/OT is ordered. Pt will be a precert if SNF needed.
--- NOTE | 2023-06-15 14:03 | SWNOTE1 ---
SW did not have pt sign IMM or MENDOZA form, waiting to see what status pt is.
--- NOTE | 2023-06-15 14:31 | CA_ITS ---
Patient: JACKSON IQBAL Exam Date: 06/15/2023 : 1945 Gender:M Ordering : DR NEO CARRERA . Admission #: [id number] Family : JACKSON JOSEPH MD Order #: [id number] CLICK HERE TO VIEW EXAM ECHOCARDIOGRAM REPORT PROCEDURE: CA ECHO DOPPLER COMPLETE INDICATIONS: Dyspnea, atrial fibrillation, falls COMPARISON: None. DESCRIPTION: COMPLETE ECHOCARDIOGRAM Real-time transthoracic echocardiography with 2D, M-mode, spectral and color flow Doppler performed. QUALITY: Technical quality was adequate. LEFT VENTRICLE: Normal chamber size. Moderate concentric left ventricular hypertrophy. Normal systolic function. LV EF: Normal left ventricular ejection fraction, (>55%). DIASTOLIC: Not adequately assessed due to heart rhythm. ATRIAL SEPTUM: LEFT ATRIUM: Moderate dilatation. RIGHT ATRIUM: Mild dilatation. RIGHT VENTRICLE: Normal chamber size. Systolic function appears normal. TRICUSPID VALVE: Normal mobility and thickness. No stenosis with trivial regurgitation. MITRAL VALVE: Normal mobility and thickness. No evidence of mitral valve stenosis. There is no mitral annular calcification. No mitral regurgitation. AORTIC VALVE: Normal trileaflet appearance. Thickened aortic valve. Normal leaflet mobility. No evidence of aortic valve stenosis. No aortic regurgitation. AORTIC ROOT: Normal diameter and appearance. PULMONIC VALVE: Normal thickness and mobility. No stenosis. No regurgitation. PERICARDIUM: No evidence of pericardial effusion. IVC: Not well visualized. PLEURA: CONCLUSION: 1. Normal ventricular systolic function. LVEF is 55 to 60%. 2. Moderate concentric left ventricular hypertrophy. 3. No significant valvular dysfunction. 4. Mild to moderate biatrial dilatation. 5. No pericardial effusion. 6. The patient appears to be in atrial fibrillation during the exam. Adult Echocardiography Procedure Report Left Ventricle LVEDD (3.7 - 5.6 cm): 3.56 cm LVESD (2.2 - 4.0 cm): 2.64 cm LVIVS thickness (0.6 - 1.2 cm): 1.50 cm LVPW thickness (0.5 - 1.0 cm): 1.48 cm LVOT Max Gradient: 0.71 mm[Hg] LVOT Area (cm2): 0.42 m/s Peak Velocity (LVOT): 0.42 m/s LVOT Diameter 2.62 cm Left Atrium LA Volume Index (2D A2C): 41.71 ml/m2 Left Atrium Systolic Dimension: 6.13 cm Mitral Valve MV E to A Ratio: 3.77 Mitral Valve A-Wave Peak Velocity: 0.25 m/s Mitral Valve E-Wave Peak Velocity: 0.93 m/s Right Ventricle Aorta AO Root Diam: 3.52 cm Aortic Valve AoV Area (Peak Deon): 2.81 cm2, 2.81 cm2 Peak Velocity(Antegrade Flow): 0.81 m/s Peak Gradient(Antegrade Flow): 2.61 mm[Hg] Tricuspid Valve Pulmonic Valve Peak Velocity: 0.69 m/s Peak Gradient: 1.98 mm[Hg], 1.86 mm[Hg] Right Atrium Right Atrium Systolic Pressure: 45.15 ml, 45.15 ml Dictated by: Javon Ortiz M.D. on 06/15/2023 at 18:13 Approved by: Javon Ortiz M.D. on 06/15/2023 at 18:16
[2023-06-15 15:32] LABS: Creatine Kinase 108 U/L (39-308); Creatine Kinase MB 2.37 ng/mL (<=3.60); Magnesium 2.1 mg/dL (1.8-2.4); Myoglobin 187 ng/mL (16-96); Troponin I High Sensitivity 14.4 pg/mL (4.0-76.1)
[2023-06-15 15:34] LABS: Free T3 2.31 pg/mL (2.18-3.98); Thyroid Stimulating Hormone 1.055 uIU/mL (0.358-3.740)
[2023-06-15] MEDS: LACTATED RINGER'S SOLUTION 1,000 ML 100 ML IV (16:26)
--- NOTE | 2023-06-15 17:12 | P.HP_ITS ---
H&P: HPI History of Present Illness Chief complaint: LT KNEE PAIN/FALL Narrative: Patient was seen in the office the previous day. But at home sustained a fall resulted in his inability to get up off the floor, EMS had to come out and help him up, was evaluated by home health also and they recommended to go to ER for evaluation of his inability to ambulate. In ER found to have acute renal failure with elevated creatinine 2 times normal, possibly prerenal, acute UTI with significant hematuria Review of Systems ROS Status of ROS 10 or more systems reviewed and unremarkable except as noted in history and below [facility] Medical History (Updated 06/15/23 @ 11:58 by Charo Sinclair MD) Surgical History Family History Other Family history not known due to adoption Social History Within the past year, how often did you have a drink containing alcohol: never Score interpretation: A score less than 4 is consistent with normal alcohol consumption. 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 Known occupational exposures/hazards: No Highest level of school completed/degree received: Associate degree: occupational, technical, vocational program Do you want help with school or training: No Are you now , , , , never or living with a partner: In a typical week, how many times do you talk on the telephone with family, friends, or neighbors: 3 or more times per week How often do you get together with friends or relatives: once per week How often do you attend latter day or shinto services: never Do you belong to any clubs or organizations such as latter day groups unions, fraternal or athletic groups, or school groups: no Total score: 1 Score interpretation: A score of less than or equal to 1 indicates the most socially isolated. Little interest or pleasure in doing things: not at all Feeling down, depressed, or hopeless: not at all Feel stressed/tense/nervous/anxious/difficulty sleeping: not at all Due to disability, difficulty making decisions: No Do you think of yourself as: straight/heterosexual Gender Identity: male Meds Home Medications and Allergies Home Medications Medication Instructions Recorded Confirmed Type apixaban 5 mg tablet (Eliquis) 5 mg PO BID 04/12/23 06/15/23 History atorvastatin 80 mg tablet 80 mg PO .QHS 04/12/23 06/15/23 History baclofen 10 mg tablet 10 mg PO BID 04/12/23 06/15/23 History furosemide 40 mg tablet 40 mg PO Q12H 04/12/23 06/15/23 History hydroxychloroquine 200 mg tablet 200 mg PO DAILY 04/12/23 06/15/23 History hyoscyamine sulfate 0.125 mg tablet 0.125 mg PO BID PRN dyspepsia 04/12/23 06/15/23 History oxybutynin chloride 5 mg tablet 5 mg PO BID PRN bladder spasms 04/12/23 06/15/23 History potassium chloride 10 mEq 10 meq PO DAILY 04/12/23 06/15/23 History capsule,extended release acetaminophen 500 mg tablet 1,000 mg PO Q6H PRN Pain Scale 1-3 05/02/23 06/15/23 Rx (Tylenol Extra Strength) #120 tabs lisinopril 10 mg tablet 20 mg PO DAILY #30 tabs 05/02/23 06/15/23 Rx potassium chloride 10 mEq 20 meq PO BID #60 tabs 05/02/23 06/15/23 Rx tablet,extended release(part/cryst) (Klor-Con M) Allergies Allergy/AdvReac Type Severity Reaction Status Date / Time No Known Drug Allergies Allergy Verified 06/15/23 10:29 Exam Constitutional Vital Signs, click to edit/add: Last Vital Signs Temp 98.5 F 06/15/23 14:26 Pulse 57 L 06/15/23 14:26 Resp 18 06/15/23 14:26 BP 109/64 06/15/23 14:26 Pulse Ox 99 06/15/23 16:34 O2 Del Method Room Air 06/15/23 16:34 Common normals: no apparent distress Chest Common normals: inspection of chest normal and palpation of chest normal Respiratory Common normals: normal respiratory effort, no use of accessory muscles and clear to auscultation bilaterally Cardio Rhythm: abnormal rhythm Extremity Left lower extremity: knee joint (sig effusion likel bursal sac rupture) Results Labs Labs: Cardiac Enzymes 08/31/23 Range/Units 14:59 Total Creatine Kinase 108 (39-308) U/L CK-MB (CK-2) 2.37 (<=3.60) ng/mL Assessment and Plan Assessment and Plan (1) Contusion of knee: (2) Effusion of bursa of left knee: (3) Atrial fibrillation: (4) Bradycardia with 31-40 beats per minute: (5) Chronic anticoagulation: (6) Heart failure, diastolic: Plan Patient status post fall secondary to weakness secondary to acute renal failure with significant hyperkalemia. His creatinine is elevated more than 2 times baseline. We will continue with gentle hydration as he does have a history of diastolic heart failure. Repeat labs in AM. Hematuria with white blood cells in urine-start antibiotics. History of Proteus Iron deficiency anemia as well as possibly acute blood loss anemia secondary to the hematuria-monitor daily Significant hematuria-May need evaluation by urology. We will hold off on inpatient referral at this time - Pt preference Morbid obesity-diet management Atrial fibrillation with bradycardia-continue current medications Hypertension by history-monitor daily and continue with home medications
[2023-06-15] MEDS: CIPROFLOXACIN IN 5 % DEXTROSE 400 MG/200 ML PIGGYBACK 200 MG IV (18:37)
[2023-06-15] MEDS: CEFTRIAXONE 1,000 MG in 0.9 % SODIUM CHLORIDE 50 ML 100 MG IV (20:17)
--- NOTE | 2023-06-15 20:23 | PC.NURSE ---
documented under vital signs
[2023-06-15] MEDS: ATORVASTATIN CALCIUM 40 MG TABLET 80 MG PO (20:28)
[2023-06-15] MEDS: BACLOFEN 10 MG TABLET PO (20:28)
[2023-06-15] MEDS: APIXABAN 5 MG TABLET PO (20:28)
[2023-06-16] VITALS (17 sets, daily range): BP systolic 103–182; BP diastolic 52–75; PULSE 42–91; RESP 16–18; TEMP 36.9–37.1; O2SAT 91–97; BMI 31.6
[2023-06-16] MEDS: LACTATED RINGER'S SOLUTION 1,000 ML 100 ML IV (03:40)
[2023-06-16 05:10] LABS: Basophils Percent Auto 0.7 % (0.2-2.0); Eosinophils Absolute Auto 0.2 10^3/uL (0.0-0.7); Eosinophils Percent Auto 4.4 % (0.9-7.0); Immature Granulocytes Abs Auto 0.01 10^3/uL (0.00-0.03); Immature Granulocytes Pct Auto 0.2 % (0.0-0.5); Lymphocytes Absolute Auto 1.2 10^3/uL (1.2-3.8); Lymphocytes Percent Auto 21.1 % (20.5-60.0); Mean Corpuscular HGB Conc 31.3 g/dL (29.9-35.2); Mean Corpuscular Hemoglobin 30.9 pg (25.9-34.0); Mean Corpuscular Volume 98.8 fL (80.0-94.0); Mean Platelet Volume 9.8 fL (9.5-13.5); Monocytes Absolute Auto 0.6 10^3/uL (0.3-0.8); Monocytes Percent Auto 10.3 % (1.7-12.0); Neutrophils Absolute Auto 3.5 10^3/uL (1.4-6.5); Neutrophils Percent Auto 63.3 % (43.0-75.0); Platelet Count 201 10^3/uL (150-450); Red Blood Count 3.24 10^6/uL (4.70-6.10); Red Cell Distribution Width 14.1 % (11.0-15.0); White Blood Count 5.5 10^3/uL (4.0-11.0)
[2023-06-16] MEDS: CIPROFLOXACIN IN 5 % DEXTROSE 400 MG/200 ML PIGGYBACK 100 MG IV (05:23)
[2023-06-16 05:44] LABS: BUN Creatinine Ratio 13.7; Calcium 8.6 mg/dL (8.5-10.1); Carbon Dioxide 25.3 mmol/L (21.0-32.0); Chloride 110 mmol/L (98-107); Estimated GFR (African America >60 (>=60); Estimated GFR (Non-African Ame 57 (>=60); Glucose 83 mg/dL (74-106); Magnesium 1.9 mg/dL (1.8-2.4); Potassium 4.3 mmol/L (3.5-5.1); Sodium 140 mmol/L (136-145)
--- NOTE | 2023-06-16 07:53 | P.PN_ITS ---
Progress Note: Subjective Subjective Interval history: Still pain with ambulation. Some dyspnea. Exam Constitutional Vital Signs, click to edit/add: Last Vital Signs Temp 98.5 F 06/16/23 05:04 Pulse 52 L 06/16/23 06:00 Resp 18 06/16/23 05:04 BP 146/75 H 06/16/23 05:04 Pulse Ox 91 L 06/16/23 05:04 O2 Del Method Room Air 06/16/23 05:04 Common normals: no apparent distress Chest Common normals: inspection of chest normal and palpation of chest normal Respiratory Common normals: normal respiratory effort, no use of accessory muscles and clear to auscultation bilaterally Cardio Rhythm: abnormal rhythm Extremity Left lower extremity: knee joint (sig effusion likel bursal sac rupture) Progress Note: Objective Labs Labs: Short CBC 06/16/23 Range/Units 04:42 WBC 5.5 (4.0-11.0) 10^3/uL Hgb 10.0 L (14.0-18.0) g/dL Hct 32.0 L (42.0-54.0) % Plt Count 201 (150-450) 10^3/uL BMP 06/16/23 04:42 Sodium 140 Potassium 4.3 Chloride 110 H Carbon Dioxide 25.3 BUN 17.0 Creatinine 1.24 Glucose 83 Calcium 8.6 Cardiac Enzymes 06/15/23 Range/Units 14:59 Total Creatine Kinase 108 (39-308) U/L CK-MB (CK-2) 2.37 (<=3.60) ng/mL Progress Note: A&P Assessment and Plan (1) Contusion of knee: (2) Effusion of bursa of left knee: (3) Atrial fibrillation: (4) Bradycardia with 31-40 beats per minute: (5) Chronic anticoagulation: (6) Heart failure, diastolic: Plan Patient status post fall secondary to weakness secondary to acute renal failure with significant hyperkalemia. His creatinine and potassium are back to baseline Hematuria with white blood cells in urine-start antibiotics. History of Proteus-culture pending we will check later today should be resulted Iron deficiency anemia as well as possibly acute blood loss anemia secondary to the hematuria-monitor daily-slightly worse today, continue to monitor, check occult blood Significant hematuria-May need evaluation by urology. We will hold off on inpatient referral at this time - Pt preference-this is nonemergent Morbid obesity-diet management Atrial fibrillation with bradycardia-continue current medications Hypertension by history-monitor daily and continue with home medications Patient unable to be improved overnight significantly. We will see how he does with ambulation with physical therapy from medical standpoint he could benefit from a more intensive rehab stay he did just get discharged from rehab but does not seem like it improved his overall physical condition. We will see what physical therapy evaluation today. Likely needs rehab for patient safety. Change patient to inpatient status if unable to be safely discharged today.
--- NOTE | 2023-06-16 08:23 | XR_ITS ---
The [address] [address] Patient Name: JACKSON IQBAL MRN: [id number] date: 1945 Sex: M Assigned Patient Location: [place] Current Patient Location: [place] Accession/Order Number: [id number] Exam Date: 06/16/2023 08:48 Report Date: 06/16/2023 09:20 At the request of: NOE CARRERA Procedure: XR chest 2V EXAMINATION: XR chest 2V HISTORY: dyspnea COMPARISON: No relevant comparison available. TECHNIQUE: PA and lateral FINDINGS: LUNGS: No significant pulmonary parenchymal abnormalities. VASCULATURE: No increased pulmonary vasculature. PLEURA: No pneumothorax, effusion, or pleural thickening. CARDIAC: No cardiomegaly or cardiac silhouette abnormality. MEDIASTINUM: No visible mass or adenopathy. BONES: Mild degenerative disc disease and spondylosis without visible acute abnormalities. OTHER: Negative. XR/XR chest 2V IMPRESSION: No acute disease. Electronically authenticated by: NATALIE MOHAN Date: 06/16/2023 09:20
--- NOTE | 2023-06-16 08:45 | SWNOTE1 ---
Therapy recommending jail facility, SW to see if pt would like to go and where.
[2023-06-16] MEDS: ACETAMINOPHEN 500 MG TABLET 1000 MG PO (10:13)
[2023-06-16] MEDS: APIXABAN 5 MG TABLET PO ×2 (10:13→20:33)
[2023-06-16] MEDS: BACLOFEN 10 MG TABLET PO ×2 (10:13→20:33)
[2023-06-16] MEDS: HYDROXYCHLOROQUINE SULFATE 200 MG TABLET PO (10:14)
--- NOTE | 2023-06-16 10:18 | SWNOTE1 ---
KAMINI spoke with pt and daughter on phone and let them know [facility] willing to review information if that is where they want to go. Pt and daughter have agreed and would like the [facility]. K[facility]INI sent referral to [facility]. [facility] called and they are able to accept and they will start precert. KAMINI sent over OT notes for precert.
--- NOTE | 2023-06-16 10:45 | CM.NOTE ---
Medicare Outpatient Observation Notice discussed with pt, pt verbalizes understanding and signs paper. Original given to pt and copy placed on pt's chart.
[2023-06-16] MEDS: CIPROFLOXACIN IN 5 % DEXTROSE 400 MG/200 ML PIGGYBACK 200 MG IV (17:02)
--- NOTE | 2023-06-16 18:50 | PM.ORCN ---
History of Present Illness HPI Consult date: 06/16/23 Consult reason: joint pain Chief complaint: LT KNEE PAIN/FALL Narrative: The patient a 78-year-old admitted after a fall with left knee pain and difficulty bearing weight. He was also found to have acute renal failure in the emergency room. At baseline patient reports many years of bilateral knee pain. Since his fall in the past several days he has had some increase in left knee pain and swelling. He notes that the swelling today is diminished from yesterday. He reports not having any treatment for his knee pain in the past Review of Systems ROS Status of ROS 10 or more systems reviewed and unremarkable except as noted in history and below [facility] Medical History (Updated 06/15/23 @ 11:58 by Charo Sinclair MD) Surgical History Family History Other Family history not known due to adoption Social History Within the past year, how often did you have a drink containing alcohol: never Score interpretation: A score less than 4 is consistent with normal alcohol consumption. 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 Known occupational exposures/hazards: No Highest level of school completed/degree received: Associate degree: occupational, technical, vocational program Do you want help with school or training: No Are you now , , , , never or living with a partner: In a typical week, how many times do you talk on the telephone with family, friends, or neighbors: 3 or more times per week How often do you get together with friends or relatives: once per week How often do you attend orthodoxy or jainism services: never Do you belong to any clubs or organizations such as orthodoxy groups unions, fraternal or athletic groups, or school groups: no Total score: 1 Score interpretation: A score of less than or equal to 1 indicates the most socially isolated. Little interest or pleasure in doing things: not at all Feeling down, depressed, or hopeless: not at all Feel stressed/tense/nervous/anxious/difficulty sleeping: not at all Due to disability, difficulty making decisions: No Do you think of yourself as: straight/heterosexual Gender Identity: male Meds Home Medications and Allergies Home Medications Medication Instructions Recorded Confirmed Type apixaban 5 mg tablet (Eliquis) 5 mg PO BID 04/12/23 06/15/23 History atorvastatin 80 mg tablet 80 mg PO .QHS 04/12/23 06/15/23 History baclofen 10 mg tablet 10 mg PO BID 04/12/23 06/15/23 History furosemide 40 mg tablet 40 mg PO Q12H 04/12/23 06/15/23 History hydroxychloroquine 200 mg tablet 200 mg PO DAILY 04/12/23 06/15/23 History hyoscyamine sulfate 0.125 mg tablet 0.125 mg PO BID PRN dyspepsia 04/12/23 06/15/23 History oxybutynin chloride 5 mg tablet 5 mg PO BID PRN bladder spasms 04/12/23 06/15/23 History potassium chloride 10 mEq 10 meq PO DAILY 04/12/23 06/16/23 History capsule,extended release acetaminophen 500 mg tablet 1,000 mg PO Q6H PRN Pain Scale 1-3 05/02/23 06/15/23 Rx (Tylenol Extra Strength) #120 tabs potassium chloride 10 mEq 20 meq PO BID #60 tabs 05/02/23 06/15/23 Rx tablet,extended release(part/cryst) (Klor-Con M) lisinopril 10 mg tablet 10 mg PO DAILY 06/16/23 06/16/23 History Allergies Allergy/AdvReac Type Severity Reaction Status Date / Time No Known Drug Allergies Allergy Verified 06/15/23 10:29 Exam Narrative Exam Narrative: Left knee has a moderate joint effusion. Skin is intact. No prepatellar bursal swelling. Joint line tenderness is present. 0 to 80 degrees of motion. No gross ligamentous instability. Joint line tenderness is present on exam. No tenderness along the tibial plateau, patella or distal femoral condyles. Constitutional Vital Signs, click to edit/add: Last Vital Signs Temp 98.7 F 06/16/23 13:53 Pulse 52 L 06/16/23 17:55 Resp 18 06/16/23 13:53 BP 103/52 06/16/23 13:53 Pulse Ox 97 06/16/23 13:53 O2 Del Method Room Air 06/16/23 13:53 Results Labs Labs: Abnormal lab results 06/16/23 Range/Units 04:42 RBC 3.24 L (4.70-6.10) 10^6/uL Hgb 10.0 L (14.0-18.0) g/dL Hct 32.0 L (42.0-54.0) % MCV 98.8 H (80.0-94.0) fL Chloride 110 H (98-107) mmol/L Est GFR (Non-Af Amer) 57 L (>=60) H & H 06/16/23 Range/Units 04:42 Hgb 10.0 L (14.0-18.0) g/dL Hct 32.0 L (42.0-54.0) % All other labs normal. Diagnostic results Knee CT: other (I have personally reviewed the CT images and report which shows severe osteoarthritis. No obvious fracture) Assessment and Plan Assessment and Plan (1) Contusion of knee: Assessment and Plan: His history and exam as well as CT scan are consistent with a joint effusion secondary to hemarthrosis or exacerbation of his underlying arthritis. Less likely is occult fracture. Would recommend treatment with icing, elevation, physical therapy for transfer and gait training. I have discussed with the patient that once this acute episode resolves then consideration could be made for a corticosteroid injection. Would be happy to see the patient on an out patient basis. (2) Effusion of bursa of left knee: (3) Atrial fibrillation: (4) Bradycardia with 31-40 beats per minute: (5) Chronic anticoagulation: (6) Heart failure, diastolic:
[2023-06-16] MEDS: ATORVASTATIN CALCIUM 40 MG TABLET 80 MG PO (20:33)
[2023-06-16] MEDS: CEFTRIAXONE 1,000 MG in 0.9 % SODIUM CHLORIDE 50 ML 100 MG IV (20:33)
[2023-06-17] VITALS: PULSE 45
--- NOTE | 2023-06-17 00:12 | PC.NURSE ---
patient sat at edge of bed to use urinal. urine was dark red in color. patient denies any pain while urinating or difficulty urinating. tele-hospitalist, Moose Wang, made aware of change.
--- NOTE | 2023-06-17 01:04 | PC.NURSE ---
patient's urine is dark red in color with one visible clot noted. patient denies pain or difficulty urinating. Patient did say he was feeling urgency at this time. night hospitalist made aware.
[2023-06-17 02:00] VITALS: PULSE 43
[2023-06-17 04:00] VITALS: PULSE 50
[2023-06-17 04:49] LABS: Basophils Percent Auto 0.7 % (0.2-2.0); Eosinophils Absolute Auto 0.3 10^3/uL (0.0-0.7); Eosinophils Percent Auto 6.1 % (0.9-7.0); Hematocrit 31.1 % (42.0-54.0); Hemoglobin 9.8 g/dL (14.0-18.0); Immature Granulocytes Abs Auto 0.01 10^3/uL (0.00-0.03); Immature Granulocytes Pct Auto 0.2 % (0.0-0.5); Lymphocytes Absolute Auto 1.3 10^3/uL (1.2-3.8); Lymphocytes Percent Auto 24.6 % (20.5-60.0); Mean Corpuscular HGB Conc 31.5 g/dL (29.9-35.2); Mean Corpuscular Hemoglobin 31.1 pg (25.9-34.0); Mean Corpuscular Volume 98.7 fL (80.0-94.0); Mean Platelet Volume 9.9 fL (9.5-13.5); Monocytes Absolute Auto 0.6 10^3/uL (0.3-0.8); Monocytes Percent Auto 11.9 % (1.7-12.0); Neutrophils Percent Auto 56.5 % (43.0-75.0); Platelet Count 189 10^3/uL (150-450); Red Blood Count 3.15 10^6/uL (4.70-6.10); White Blood Count 5.4 10^3/uL (4.0-11.0)
[2023-06-17 04:53] VITALS: BP 111/49; PULSE 50; RESP 16; TEMP 36.6; O2SAT 93
[2023-06-17 05:01] LABS: Anion Gap 8.9; BUN Creatinine Ratio 15.6; Calcium 8.6 mg/dL (8.5-10.1); Carbon Dioxide 26.2 mmol/L (21.0-32.0); Chloride 108 mmol/L (98-107); Estimated GFR (African America >60 (>=60); Estimated GFR (Non-African Ame 54 (>=60); Glucose 89 mg/dL (74-106); Magnesium 1.9 mg/dL (1.8-2.4); Potassium 4.1 mmol/L (3.5-5.1); Sodium 139 mmol/L (136-145)
[2023-06-17] MEDS: CIPROFLOXACIN IN 5 % DEXTROSE 400 MG/200 ML PIGGYBACK 100 MG IV (05:19)
[2023-06-17 06:00] VITALS: PULSE 40
[2023-06-17 08:12] VITALS: PULSE 42
[2023-06-17] MEDS: APIXABAN 5 MG TABLET PO (08:16)
[2023-06-17] MEDS: BACLOFEN 10 MG TABLET PO (08:16)
[2023-06-17] MEDS: HYDROXYCHLOROQUINE SULFATE 200 MG TABLET PO (08:16)
--- NOTE | 2023-06-17 08:22 | PM.DS1 ---
DS: Providers Provider Date of admission: 06/15/23 14:25 Primary care physician: Javier Gould MD Consults: 06/15/23 Consult to Fingernail Former Routine Reason for consult:: Home Health 06/15/23 14:30 Occupational Therapy Eval and Treat Routine Reason for consultation: ambulating Has provider been notified: No Physical Therapy Eval and Treat Routine Reason for consultation: ambulating Has provider been notified: No 06/15/23 15:13 Consult to Fingernail Former Routine Has provider been notified: No Reason for consult:: Long Term 06/16/23 08:19 Consult to Orthopedic Surgery Routine Consulting Provider: Alli Chicas Reason For Exam: Reason for consultation: If here today - non-emergent DS: Diagnosis Discharge Diagnosis (1) Contusion of knee: (2) Effusion of bursa of left knee: (3) Atrial fibrillation: (4) Bradycardia with 31-40 beats per minute: (5) Chronic anticoagulation: (6) Heart failure, diastolic: Plan Hematuia morbid obesity hypertension DS: Summary Hospital Course Hospital Course: Pt admitted with recurrent falls at home. Resulting in bursal sac rupture left knee. also significant heamrtiea and acute kidney failure (Creatinine more that 2X baseline) with hyperkalemia on admission. Given IV fluids, creatinine improved, hyperkalemia resolved. Started on antibiotics but cx did return as negative. PT worked with t and found to have significant instability. Recommended rehab. Pt referred to the [facility]. Accepted there, I will follow. [facility] for hematuria, [facility] if not improving. med see list Status at Discharge Functional status at discharge: uses cane/walker Overall status at discharge: patient is not back to baseline Time Spent with Patient Time attestation: Total time spent providing and/or coordinating discharge services: Exam Constitutional Vital Signs, click to edit/add: Last Vital Signs Temp 97.8 F 06/17/23 04:53 Pulse 42 L 06/17/23 08:12 Resp 16 06/17/23 04:53 BP 111/49 06/17/23 04:53 Pulse Ox 93 L 06/17/23 04:53 O2 Del Method Room Air 06/17/23 04:53 Common normals: no apparent distress Chest Common normals: inspection of chest normal and palpation of chest normal Respiratory Common normals: normal respiratory effort, no use of accessory muscles and clear to auscultation bilaterally Cardio Rhythm: abnormal rhythm Extremity Left lower extremity: knee joint (sig effusion likel bursal sac rupture) DS: Data Data Completed and Pending Labs on day of discharge: Labs from last 24 hours 06/17/23 04:08 WBC 5.4 RBC 3.15 L Hgb 9.8 L Hct 31.1 L MCV 98.7 H MCH 31.1 MCHC 31.5 RDW 14.0 Plt Count 189 MPV 9.9 Neut % (Auto) 56.5 Lymph % (Auto) 24.6 [place] % (Auto) 11.9 Eos % (Auto) 6.1 Baso % (Auto) 0.7 Neut # (Auto) 3.0 Lymph # (Auto) 1.3 [place] # (Auto) 0.6 Eos # (Auto) 0.3 Baso # (Auto) 0.0 Abs Immat Gran (auto) 0.01 Imm/Tot Granulo (auto) 0.2 Sodium 139 Potassium 4.1 Chloride 108 H Carbon Dioxide 26.2 Anion Gap 8.9 BUN 20.0 H Creatinine 1.28 Est GFR ( Amer) >60 Est GFR (Non-Af Amer) 54 L BUN/Creatinine Ratio 15.6 Glucose 89 Calcium 8.6 Magnesium 1.9 Discharge Plan Discharge Disposition: Xfer [facility] Discharge Medications: New Eliquis 2.5 mg tablet 2.5 mg PO BID Qty: 60 11RF cefdinir 300 mg capsule 600 mg PO DAILY 10 Days Qty: 20 0RF Continued hydroxychloroquine 200 mg tablet 200 mg PO DAILY furosemide 40 mg tablet 40 mg PO Q12H potassium chloride 10 mEq capsule, extended release 10 meq PO DAILY atorvastatin 80 mg tablet 80 mg PO .QHS oxybutynin chloride 5 mg tablet 5 mg PO BID PRN (Reason: bladder spasms) hyoscyamine sulfate 0.125 mg tablet 0.125 mg PO BID PRN (Reason: dyspepsia) baclofen 10 mg tablet 10 mg PO BID Patient Comments: Has not started taking yet Rx Instructions: 1/2 to 1 tab twice daily acetaminophen [Tylenol Extra Strength] 500 mg Tablet 1,000 mg PO Q6H PRN (Reason: Pain Scale 1-3) Qty: 120 0RF potassium chloride [Klor-Con M10] 10 mEq Tablet,Er Particles/Crystals 20 meq PO BID Qty: 60 11RF Discontinued Eliquis 5 mg tablet 5 mg PO BID Patient Comments: changed to 2.5 mg d/t hematuria lisinopril 10 mg Tablet 10 mg PO DAILY Rx Instructions: was entered as 20mg QD. per refill history: patient filled 10mg QD on 06/02/23 for 30 days supply Forms: Portal Instructions
--- NOTE | 2023-06-17 09:11 | PT.DAILY ---
Physical Therapy Daily Note PT Daily Note/Assess Start: 06/16/23 11:30 Freq: Status: Active Protocol: Document 06/17/23 08:50 CHUCHO (Rec: 06/17/23 09:11 CHUCHO [id number]) Visit Not Completed Visit Not Completed Visit Not Completed Due to: Other Other Reason Visit Not Completed Patient is being DC to [place] this morning, and declined PT . Physical Therapy Daily Note/Assessment Time In/Time Out Time In 08:50 Time Out 08:51 GG. Functional Abilities and Goals-Complete for Swing Bed Patients Only [id number]. Self-Care [id number]. Mobility
--- NOTE | 2023-06-17 09:23 | PT.DAILY ---
Physical Therapy Daily Note PT Daily Note/Assess Start: 06/16/23 11:30 Freq: Status: Active Protocol: Document 06/17/23 08:50 CHUCHO (Rec: 06/17/23 09:11 CHUCHO [id number]) Visit Not Completed Visit Not Completed Visit Not Completed Due to: Other Other Reason Visit Not Completed Patient is being DC to [place] this morning, and declined PT . Physical Therapy Daily Note/Assessment Time In/Time Out Time In 08:50 Time Out 08:51 GG. Functional Abilities and Goals-Complete for Swing Bed Patients Only [id number]. Self-Care [id number]. Mobility
== END 2023-06-17 10:09 ==
LOC: ER 11:58 → MS 06-16 08:55
PROVIDERS: Admitting Provider Family Medicine; Emergency Provider Emergency Medicine; PCP Family Medicine; Visit Provider Family Medicine
DX: N17.9 Acute kidney failure, unspecified (principal); E87.5 Hyperkalemia; R31.9 Hematuria, unspecified; M25.462 Effusion, left knee; S80.02XA Contusion of left knee, initial encounter; D50.9 Iron deficiency anemia, unspecified; I48.91 Unspecified atrial fibrillation; R00.1 Bradycardia, unspecified; I11.0 Hypertensive heart disease with heart failure; E66.01 Morbid (severe) obesity due to excess calories; I50.32 Chronic diastolic (congestive) heart failure; W10.9XXA Fall (on) (from) unspecified stairs and steps, initial encounter; Z79.01 Long term (current) use of anticoagulants; Z79.899 Other long term (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 therapy; Z68.31 Body mass index [BMI] 31.0-31.9, adult; D68.9 Coagulation defect, unspecified
CPT/HCPCS: 36415; 71046; 72192; 73564; 73700; 80048; 80053; 81001; 82550; 82553; 83735; 83874; 83880; 84436; 84443; 84481; 84484; 85025; 85610; 85730; 87086; 93306; 94667; 94668; 94761; 96365; 96366; 96367; 97110; 97162; 97165; 99285; G0328; G0378

== ENCOUNTER 2023-09-29 14:03 | Outpatient (OUT) | payer MEDICARE, SELFPAY ==
[2023-09-29 15:50] LABS: Estimated Average Glucose 114 mg/dL; Glycohemoglobin A1C 5.6 % (4.5-6.2)
[2023-09-29 15:58] LABS: Prothrombin Time 10.6 sec (9.0-11.6)
[2023-09-29 16:09] LABS: Free T3 3.04 pg/mL (2.18-3.98); Thyroid Stimulating Hormone 1.528 uIU/mL (0.358-3.740)
== END 2023-09-29 14:04 | disposition home or self-care (01) ==
LOC: LAB 14:04
PROVIDERS: PCP Family Medicine; Visit Provider Family Medicine
DX: R60.9 Edema, unspecified (principal); C61 Malignant neoplasm of prostate; R97.20 Elevated prostate specific antigen [PSA]; D50.9 Iron deficiency anemia, unspecified; I50.33 Acute on chronic diastolic (congestive) heart failure; Z79.01 Long term (current) use of anticoagulants; R53.1 Weakness; I25.10 Atherosclerotic heart disease of native coronary artery without angina pectoris; E87.5 Hyperkalemia
CPT/HCPCS: 36415; 83036; 83540; 84153; 84436; 84443; 84481; 85610

== ENCOUNTER 2023-09-29 14:10 | Outpatient (OUT) | payer MEDICARE, SELFPAY ==
[2023-09-29 15:28] LABS: Prostate Specific Antigen Dx <0.13 ng/mL (<=4.00)
== END 2023-09-29 14:11 | disposition home or self-care (01) ==
LOC: LAB 14:14
PROVIDERS: PCP Family Medicine
DX: C61 Malignant neoplasm of prostate (principal)
CPT/HCPCS: 36415; 84153

== ENCOUNTER 2023-10-03 16:00 | Outpatient (REF) | payer MEDICARE, SELFPAY ==
[2023-10-04 17:16] LABS: Bilirubin Urine NEGATIVE (NEGATIVE); Blood Urine NEGATIVE (NEGATIVE); Clarity Urine CLEAR (CLEAR); Color Urine LT. YELLOW (YELLOW); Glucose Urine UA NEGATIVE (NEGATIVE); Ketones Urine NEGATIVE (NEGATIVE); Leukocyte Esterase Urine NEGATIVE (NEGATIVE); Nitrite Urine NEGATIVE (NEGATIVE); Protein Urine NEGATIVE (NEG/TRACE); Specific Gravity Urine <=1.005 (1.005-1.025); Urobilinogen Urine 0.2 EU/dL (0.2-1.0)
[2023-10-04 17:22] LABS: Bacteria Urine NONE SEEN #/HPF (NONE SEEN); Cast Seen? NONE SEEN #/LPF (NONE SEEN); Crystals Seen? None Seen #/HPF (None Seen); Mucus Urine NONE SEEN (NONE SEEN); RBC Urine NONE SEEN #/HPF (0-2); Squamous Epithelial Cell Urine RARE #/LPF (NONE/RARE); WBC Urine NONE SEEN #/HPF (NONE SEEN)
--- OUTSIDE RECORDS SUMMARY | 2023-10-05 10:08 | XMS_ITS | CCD ---
Author Name Unknown Address [address] [facility] [address] [place] [address] Organization [facility] Care Team Providers Care Supervisor Photostat Name Role Phone PEBBLES WOODARD Primary Care Unavailable HOY ., DR LARSON Admitting Unavailable HOY ., DR LARSON Consulting Unavailable HOY ., DR LARSON Attending Unavailable REQUEST, NONE LISTED Admitting Unavaila ble REQUEST, DR ALLEN LISTED Attending Unavaila ble HOY ., DR LARSON Primary Care Unavailable HOY ., DR LARSON Consulting Unavailable REQUEST, NONE LISTED Admitting Unavaila ble REQUEST, DR ALLEN LISTED Attending Unavaila ble REGINAFELICIA VILLALBA Primary Care Unavailable REGINAFELICIA Consulting Unavailable REQUEST, NONE LISTED Admitting Unavaila ble REQUEST, DR ALLEN LISTED Consulting Unavaila ble REQUEST, DR ALLEN LISTED Attending Unavaila ble PEBBLES WOODARD Primary Care Unavailable HOY ., DR LARSON Primary Care Unavailable MISC, DR ALBERTO Admitting Unavailable MISC, DR ALBERTO Consulting Unavailable MISC, DR ALBERTO Attending Unavailable Neo Gould Primary Care Physician [phone] ROSE MCNEILL Attending Unavailable NILLZhang Attending Unavailable Neo Gould Referring Unavailable NILLZhang Attending Unavailable Neo Gould Referring Unavailable Ghislaine Morales Attending Unavailable NILLZhang Attending Unavailable Neo Gould Referring Unavailable NILLZhang Attending Unavailable NILLZhang Attending Unavailable Allergies Allergy Classification Reported Allergen(s) Allergy Type Date of Onset Reaction(s) Facility (1 source) No Known Medication Allergies; 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: [No Known Medication Allergies] Propensity to adverse reactions (disorder) [facility] Repository Medications Current Medications Medication Drug Class(es) Dates Sig (Normalized) Sig (Original) apixaban 5 mg oral tablet (1 source) Factor Xa Inhibitor Start: 3 take 1 tablet by mouth twice daily Eliquis 5 mg oral tablet 5 mg = 1 tab(s), Oral, BID, Refills(s) 0 Start Date: 03/15/23 Status: Ordered atorvastatin 80 mg oral tablet (1 source) HMG-CoA Reductase Inhibitor Start: 3 take 1 tablet by mouth once daily Lipitor 80 mg Tab 80 mg = 1 tab(s), Oral, Daily, Refills(s) 0 Start Date: 03/15/23 Status: Ordered carvedilol 25 mg oral tablet (1 source) alpha-Adrenergic Jv, beta-Adrenergic Jv Start: 3 Coreg 25 mg Tab 12.5 mg = 0.5 tab(s), Oral, BID, Refills(s) 0 Start Date: 03/15/23 Status: Ordered furosemide 40 mg oral tablet (1 source) Loop Diuretic Start: 3 take 1 tablet by mouth twice daily Lasix 40 mg Tab 40 mg = 1 tab(s), Oral, BID, Refills(s) 0 Start Date: 03/15/23 Status: Ordered hydroxychloroquine sulfate 200 mg oral tablet (1 source) Antimalarial, Antirheumatic Agent Start: 3 take 1 tablet by mouth once daily hydroxychloroquine 200 mg Tab 200 mg = 1 tab(s), Oral, Daily, Refills(s) 0 Start Date: 03/28/23 Status: Ordered oxybutynin chloride 5 mg oral tablet (1 source) Cholinergic Muscarinic Antagonist Start: 3 take 1 tablet by mouth three times daily as needed oxybutynin 5 mg Tab 5 mg = 1 tab(s), Oral, TID, PRN for urinary discomfort, Refills(s) 0 Start Date: 03/15/23 Status: Ordered Completed/Discontinued Medications Medication Drug Class(es) Dates Sig (Normalized) Sig (Original) potassium chloride 10 meq oral tablet (1 source) Start: 03-15-2023 take 1 tablet by mouth twice daily potassium chloride 10 mEq ER Tab 10 mEq = 1 tab(s), Oral, BID, Refills(s) 0 Start Date: 03/15/23 Status: Ordered Problems Active Problems Problem Classification Problem Date Documented Date Episodic/Chronic Cancer of prostate (1 source) History of malignant neoplasm of prostate 03-15-2023 Episodic Cardiac dysrhythmias (4 sources) Atrial fibrillation; 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: [Premature beats] Onset: 06-01-2023 03-15-2023 Chronic Cardiac dysrhythmias (2 sources) Bradycardia, unspecified; 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: [Bradycardia, unspecified] Onset: 06-01-2023 Episodic Congestive heart failure; nonhypertensive (1 source) Diastolic heart failure 03-15-2023 Chronic Coronary atherosclerosis and other heart disease (1 source) Coronary arteriosclerosis 03-15-2023 Chronic Disorders of lipid metabolism (4 sources) Hyperlipidemia, unspecified; 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: [HYPERLIPIDEMIA UNSPECIFIED] Onset: 06-29-2022 Chronic Essential hypertension (3 sources) Hypertensive disorder; 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: [Essential (primary) hypertension] Onset: 06-01-2023 03-15-2023 Chronic Osteoarthritis (4 sources) Primary generalized (osteo)arthritis; 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: [PRIMARY GENERALIZED OSTEOARTHRITIS] Onset: 12-10-2022 Chronic Other aftercare (1 source) Other intermediate (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 therapy; 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: [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] Onset: 12-14-2022 Episodic Other aftercare (2 sources) Long-term current use of anticoagulant; 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: [detention (current) use of anticoagulants] Onset: 03-28-2023 Episodic Other and unspecified benign neoplasm (3 sources) History of polyp of colon; 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: [Personal history of colonic polyps] Onset: 03-28-2023 Episodic Other lower respiratory disease (2 sources) Other forms of dyspnea; 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: [Other forms of dyspnea] Onset: 06-01-2023 Episodic Other nutritional; endocrine; and metabolic disorders (1 source) Body mass index 30+ - obesity 03-28-2023 Chronic Other nutritional; endocrine; and metabolic disorders (1 source) Morbid obesity 03-28-2023 Chronic Other nutritional; endocrine; and metabolic disorders (1 source) Obesity 03-15-2023 Chronic Residual codes; unclassified (1 source) Edema of lower extremity 03-15-2023 Episodic Residual codes; unclassified (2 sources) Localized edema; 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: [Localized edema] Onset: 06-01-2023 Episodic Spondylosis; intervertebral disc disorders; other back problems (1 source) Cervical disc disorder 03-15-2023 Chronic Past or Other Problems Problem Classification Problem Date Documented Da te Episodic/Chronic Diabetes mellitus without complication (1 source) Other abnormal glucose; 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: [OTHER ABNORMAL GLUCOSE] Onset: 07-03-2022 Episodic Other screening for suspected conditions (not mental disorders or infectious disease) (1 source) Encounter for screening for malignant neoplasm of prostate; 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: [ENC SCREEN MALIG NEOPLASM PROSTATE] Onset: 07-03-2022 Episodic Results Test Name Value Interpretation Reference Range Facility [facility] 07-04 Shelter Records [id number] CD:[address] [facility] 37on 06-01-2023 37 -Reduce Lisinopril t o 10 mg once a day -Will get an ultrasound of your heart -Continue Lasix 40 mg twice a day -Follow-up with Dr. Ortiz to discuss watchman -Start Eliquis 2.5 mg twice a day and monitor for more bleeding Normal [facility] Office Visiton 06-01-2023 Follow-up visit [id number] Oscar Cox 1945 Date Provider Department Center 06/01/2023 ROSE JEFFERSON ABILIO Parada Family History Family history unknown: Yes Level of Service:62849 [place] OFFICE/OUTPATIENT ESTABLISHED MOD MDM 30-39 MIN Reason for Visit and Comments: Follow-up [326314] - Concerns due to increased swelling bilateral legs and also having blood in urine - Eliquis is being held at the moment Normal [facility] Orders Onlyon 06-01-2023 Orders Only [id number] Oscar Cox 1945 Provider Department Center 06/01/2023 ELVIN CADENA ABILIO Parada Family History Family history unknown: Yes Normal [facility] Reminderson 05-10-2023 Reminders - From: Pennie Bose LPN To: GSN - Clinical; Sent: 05/10/2023 10:13:27 EDT Show up: 03/27/2028 07:00:00 EDT Subject: colonoscopy recall Due Date/Time: 04/26/2028 07:00:00 EDT Reminder/Recall Patient due for surveillance colonoscopy 04/26/2028. Normal [facility] Pathology Noteon 05-03-2023 Pathology Note [id number] 0CD:[address] [facility] Outside Colonoscopyon 2022 Outside Colonoscopy [id number] 0CD:127 [facility] Pre-Certification Formon Pre-Certification Form [id number]. 00CD:127 [facility] Consent for Procedure/Surger yon 03-29-2023 Consent for Procedure/Surgery [id number] 0CD:127 [facility] Ambulatory Visit Summaryon 0 03-28-2023 Ambulatory Visit Summary OSCAR COX :1945 Visit Date:03/28/2023 Ambulatory Visit Instructions Your Diagnosis Personal history of colonic polyps Chronic anticoagulation Your Care Team Attending Physician - HOWIE LOPEZ, Zhang Jensen Primary Care Physician - Luis Fernando LOPEZ, Neo This Is Your Medications List Contact prescribing physician if questions or concerns apixaban (Eliquis 5 mg oral tablet) atorvastatin (Lipitor 80 mg Tab) carvedilol (Coreg 25 mg Tab) furosemide (Lasix 40 mg Tab) hydroxychloroquine (hydroxychloroquine 200 mg Tab) oxybutynin (oxybutynin 5 mg Tab) potassium chloride (potassium chloride 10 mEq ER Tab) Procedures Performed Colonoscopy (10/04/2017), Arthroplasty of the hip, Lumbar discectomy. Discharge Vitals Heart Rate (Peripheral) 60 Respiratory Rate 16 Blood Pressure 116/60 Height 177.8 cm Height 70 in Weight 115 kg Weight 253 lb BMI 36.38 Medications What How Much When Instructions Unchanged apixaban (Eliquis 5 mg oral tablet) 1 Tablets By Mouth 2 times a day Contact prescribing physician if questions or concerns Unchanged atorvastatin (Lipitor 80 mg Tab) 1 Tablets By Mouth Every day Contact prescribing physician if questions or concerns Unchanged carvedilol (Coreg 25 mg Tab) 0.5 Tablets By Mouth 2 times a day Contact prescribing physician if questions or concerns Unchanged furosemide (Lasix 40 mg Tab) 1 Tablets By Mouth 2 times a day Contact prescribing physician if questions or concerns Unchanged hydroxychloroquine (hydroxychloroquine 200 mg Tab) 1 Tablets By Mouth Every day Contact prescribing physician if questions or concerns Unchanged oxybutynin (oxybutynin 5 mg Tab) 1 Tablets By Mouth 3 times a day as needed for for urinary discomfort Contact prescribing physician if questions or concerns Unchanged potassium chloride (potassium chloride 10 mEq ER Tab) 1 Tablets By Mouth 2 times a day Contact prescribing physician if questions or concerns Allergies No Known Allergies No Known Medication Allergies Problems Ongoing - Any problem that you are currently receiving treatment for. Atrial fibrillation BMI 36.0-36.9,adult Cervical disc disease Chronic anticoagulation Coronary arteriosclerosis Heart failure, diastolic History of colon polyps History of prostate cancer HTN (hypertension) Lower extremity edema Morbid obesity Obesity Personal history of colonic polyps Premature beats Normal [facility] Physician Referralon 023 Physician Referral [id number] 0CD:[address] [facility] CBC AUTO DIFFon 03-01-2023 BASO # 0.0 103/ul Normal 0.0-0.1 [facility] Comment on above: Performed By: #### D ATCBC #### [facility] [address] [place] [address] Dr. Power Covarrubias Basophils/100 WBC (Bld) 0.7 % Normal 0.2-2.0 [facility] Comment on above: Performed By: #### D ATCBC #### [facility] [address] [place] [address] Dr. Power Covarrubias EO # 0.1 103/ul Normal 0.0-0.7 [facility] Comment on above: Performed By: #### D ATCBC #### [facility] [address] [place] [address] Dr. Power Covarrubias Eosinophils/100 WBC (Bld) 1.8 % Normal 0.9-7.0 [facility] Comment on above: Performed By: #### D ATCBC #### [facility] [address] [place] [address] Dr. Power Covarrubias Erythrocyte distribution width (RBC) [Ratio] 13.3 % Normal 11.0-15.0 [facility] Comment on above: Performed By: #### D ATCBC #### [facility] [address] [place] [address] Dr. Power Covarrubias Hematocrit (Bld) [Volume fraction] 40.7 % Critically low 42.0-54.0 [facility] Comment on above: Performed By: #### D ATCBC #### [facility] [address] [place] [address] Dr. Power Covarrubias Hemoglobin (Bld) [Mass/Vol] 12.9 g/dL Critically low 14.0-18.0 [facility] Comment on above: Performed By: #### D ATCBC #### [facility] [address] [place] [address] Dr. Power Covarrubias IG # 0.01 10e3/ul Normal 0.00-0.03 [facility] Comment on above: Performed By: #### D ATCBC #### [facility] [address] [place] [address] Dr. Power Covarrubias IG % 0.2 % Normal 0.0-0.5 [facility] Comment on above: Performed By: #### D ATCBC #### [facility] [address] [place] [address] Dr. Power Covarrubias LYMPH # 0.7 103/ul Critically low 1.2-3.8 [facility] Comment on above: Performed By: #### D ATCBC #### [facility] [address] [place] [address] Dr. Power Covarrubias Lymphocytes/100 WBC (Bld) 16.3 % Critically low 20.5-60.0 [facility] Comment on above: Performed By: #### D ATCBC #### [facility] [address] [place] [address] Dr. Power Covarrubias MCH (RBC) [Entitic mass] 29.6 pg Normal 25.9-34.0 [facility] Comment on above: Performed By: #### D ATCBC #### [facility] [address] [place] [address] Dr. Power Covarrubias MCHC (RBC) [Mass/Vol] 31.7 g/dL Normal 29.9-35.2 [facility] Comment on above: Performed By: #### D ATCBC #### [facility] [address] [place] [address] Dr. Power Covarrubias MCV (RBC) [Entitic vol] 93.3 fL Normal 80.0-94.0 [facility] Comment on above: Performed By: #### D ATCBC #### [facility] [address] [place] [address] Dr. Power Covarrubias MONO # 0.3 103/ul Normal 0.3-0.8 [facility] Comment on above: Performed By: #### D ATCBC #### [facility] [address] [place] [address] Dr. Power Covarrubias Monocytes/100 WBC (Bld) 7.5 % Normal 1.7-12.0 [facility] Comment on above: Performed By: #### D ATCBC #### [facility] [address] [place] [address] Dr. Power Covarrubias NEUT # 3.4 103/ul Normal 1.4-6.5 [facility] Comment on above: Performed By: #### D ATCBC #### [facility] [address] [place] [address] Dr. Power Covarrubias Neutrophils/100 WBC (Bld) 73.5 % Normal 43.0-75.0 [facility] Comment on above: Performed By: #### D ATCBC #### [facility] [address] [place] [address] Dr. Power Covarrubias Platelet mean volume (Bld) [Entitic vol] 9.9 fL Normal 9.5-13.5 [facility] Comment on above: Performed By: #### D ATCBC #### [facility] [address] [place] [address] Dr. Power Covarrubias PLT 198 103/ul Normal 150-450 [facility] Comment on above: Performed By: #### D ATCBC #### [facility] [address] [place] [address] Dr. Power Covarrubias RBC 4.36 106/ul Critically low 4.70-6.10 [facility] Comment on above: Performed By: #### D ATCBC #### [facility] [address] [place] [address] Dr. Power Covarrubias WBC 4.6 103/ul Normal 4.0-11.0 [facility] Comment on above: Performed By: #### D ATCBC #### [facility] [address] [address] [address] Power Covarrubias BRE - LIPID PROFILEon 2022 CHOL-HDL RATIO NORM SEE BELOW Normal [facility] Comment on above: Result Comment: 3.3 - 4.4 LOW RISK 4.4 - 7.1 AVERAGE RISK 7.1 - 11.0 MODERATE RISK >11.0 HIGH RISK Performed By: #### D ATLIPI, DATPSA, DATBMP #### [facility] [address] [place] [address] Dr. Power Covarrubias Cholesterol.total/Ch olesterol in HDL [Mass ratio] 2.2 {ratio} Normal [facility] Comment on above: Performed By: #### D ATLIPI, DATPSA, DATBMP #### [facility] [address] [place] [address] Dr. Power Covarrubias BRE- BMP WITH LIPIDon 2022 Anion gap [Moles/Vol] 12.8 mmol/L Normal [facility] Comment on above: Performed By: #### D ATLIPI, DATPSA, DATBMP #### [facility] [address] [place] [address] Dr. Power Covarrubias Calcium [Mass/Vol] 9.3 mg/dL Normal 8.5-10.1 [facility] Comment on above: Performed By: #### D ATLIPI, DATPSA, DATBMP #### [facility] [address] [place] [address] Dr. Power Covarrubias Chloride [Moles/Vol] 107 mmol/L Normal 98-107 [facility] Comment on above: Performed By: #### D ATLIPI, DATPSA, DATBMP #### [facility] [address] [address] [address] Power Covarrubias Cholesterol [Mass/Vol] 123 mg/dL Normal <=200 [facility] Comment on above: Performed By: #### D ATLIPI, DATPSA, DATBMP #### [facility] [address] [place] [address] Dr. Power Covarrubias Cholesterol in HDL [Mass/Vol] 56 mg/dL Normal 40-60 [facility] Comment on above: Performed By: #### D ATLIPI, DATPSA, DATBMP #### [facility] [address] [place] [address] Dr. Power Covarrubias Cholesterol in LDL [Mass/Vol] 52.0 mg/dL Normal [facility] Comment on above: Performed By: #### D ATLIPI, DATPSA, DATBMP #### [facility] [address] [place] [address] Dr. Power Covarrubias CO2 [Moles/Vol] 28.7 mmol/L Normal 21.0-32.0 [facility] Comment on above: Performed By: #### D ATLIPI, DATPSA, DATBMP #### [facility] [address] [place] [address] Dr. Power Covarrubias Creatinine [Mass/Vol] 0.93 mg/dL Normal 0.70-1.30 [facility] Comment on above: Performed By: #### D ATLIPI, DATPSA, DATBMP #### [facility] [address] [place] [address] Dr. Power Covarrubias EGFR-AF ESTONIAN >60 Normal >=60 [facility] Comment on above: Performed By: #### D ATLIPI, DATPSA, DATBMP #### [facility] [address] [place] [address] Dr. Power Covarrubias EGFR-NON AF ESTONIAN >60 Normal >=60 [facility] Comment on above: Performed By: #### D ATLIPI, DATPSA, DATBMP #### [facility] [address] [place] [address] Dr. Power Covarrubias Glucose [Mass/Vol] 97 mg/dL Normal 74-106 [facility] Comment on above: Performed By: #### D ATLIPI DATPSA, DATBMP #### [facility] [address] [address] [address] Power Covarrubias HDL NORMAL > or = 60 mg/dl - LO W CARDIOVASCULAR RISK <40 mg/dl - HIGH CARDIOVASCULAR RISK Normal [facility] Comment on above: Performed By: #### D ATLIPI DATPSA, DATBMP #### [facility] [address] [address] [address] Power Covarrubias LDL CALC NORMAL SEE BELOW Normal [facility] Comment on above: Result Comment: <100 mg/dl OPTIMAL 100 - 129 mg/dl NEAR OR ABOVE OPTIMAL 130 - 159 mg/dl BORDERLINE HIGH 160 - 189 mg/dl HIGH >190 mg/dl VERY HIGH Performed By: #### D ATLPAOLAI DATPSA, DATBMP #### [facility] [address] [address] [address] Pwoer Covarrubias Potassium [Moles/Vol] 3.5 mmol/L Normal 3.5-5.1 [facility] Comment on above: Performed By: #### D ATLIPI DATPSA, DATBMP #### [facility] [address] [address] [address] Power Covarrubias Sodium [Moles/Vol] 145 mmol/L Normal 136-145 [facility] Comment on above: Performed By: #### D ATLIPI DATPSA, DATBMP #### [facility] [address] [address] [address] Power Covarrubias Triglyceride [Mass/Vol] 75 mg/dL Normal <=150 [facility] Comment on above: Performed By: #### D ATLIPI DATPSA, DATBMP #### [facility] [address] [address] [address] Power Covarrubias Urea nitrogen [Mass/Vol] 11.0 mg/dL Normal 7.0-18.0 [facility] Comment on above: Performed By: #### D DELANEY DATPSA, DATBMP #### [facility] [address] [address] [address] Power Covarrubias Urea nitrogen/Creatinine [Mass ratio] 11.8 mg/mg Normal [facility] Comment on above: Performed By: #### D ATLIPI, DATPSA, DATBMP #### [facility] [address] [address] [address] Power Covarrubias VLDL CALC 15.0 mg/dL Normal [facility] Comment on above: Performed By: #### D ATLIPI, DATPSA, DATBMP #### [facility] [address] [address] [address] Power Covarrubias GLYCOHEMOGLOBIN A1Con 2022 ADA RECOMMENDATION SEE BELOW Normal [facility] Comment on above: Result Comment: ADA RECOMMENDED LIMIT 4.0 - 6.0 ADA THERAPEUTIC TARGET < 7.0 ACTION SUGGESTED > 7.0 Performed By: #### D ATLIPI, DATPSA, DATBMP #### [facility] [address] [address] [address] Power Covarrubias Glucose [Mass/Vol] 105 mg/dL Normal [facility] Comment on above: Performed By: #### D ATLIPI, DATPSA, DATBMP #### [facility] [address] [place] [address] Dr. Power Covarrubias HbA1c (Bld) [Mass fraction] 5.3 % Normal 4.5-6.2 [facility] Comment on above: Performed By: #### D ATLIPI, DATPSA, DATBMP #### [facility] [address] [address] [address] Power Covarrubias CBC AUTO DIFFon 12-10-2022 BASO # 0.0 103/ul Normal 0.0-0.1 [facility] Comment on above: Performed By: #### D ATLIPI, DATPSA, DATBMP #### [facility] [address] [place] [address] Dr. Power Covarrubias Basophils/100 WBC (Bld) 0.4 % Normal 0.2-2.0 [facility] Comment on above: Performed By: #### D ATLIPI, DATPSA, DATBMP #### [facility] [address] [place] [address] Dr. Power Covarrubias EO # 0.2 103/ul Normal 0.0-0.7 [facility] Comment on above: Performed By: #### D ATLIPI, DATPSA, DATBMP #### [facility] [address] [place] [address] Dr. Power Covarrubias Eosinophils/100 WBC (Bld) 3.6 % Normal 0.9-7.0 The [facility] Comment on above: Performed By: #### D ATLIPI, DATPSA, DATBMP #### [facility] [address] [place] [address] Dr. Power Covarrubias Erythrocyte distribution width (RBC) [Ratio] 13.5 % Normal 11.0-15.0 [facility] Comment on above: Performed By: #### D ATLIPI, DATPSA, DATBMP #### [facility] [address] [place] [address] Dr. Power Covarrubias Hematocrit (Bld) [Volume fraction] 37.5 % Critically low 42.0-54.0 [facility] Comment on above: Performed By: #### D ATLIPI, DATPSA, DATBMP #### [facility] [address] [place] [address] Dr. Power Covarrubias Hemoglobin (Bld) [Mass/Vol] 12.0 g/dL Critically low 14.0-18.0 The [facility] Comment on above: Performed By: #### D ATLIPI, DATPSA, DATBMP #### [facility] [address] [place] [address] Dr. Power Covarrubias IG # 0.02 10e3/ul Normal 0.00-0.03 [facility] Comment on above: Performed By: #### D ATLIPI, DATPSA, DATBMP #### [facility] [address] [place] [address] Dr. Power Covarrubias IG % 0.4 % Normal 0.0-0.5 [facility] Comment on above: Performed By: #### D ATLIPI, DATPSA, DATBMP #### [facility] [address] [place] [address] Dr. Power Covarrubias LYMPH # 0.9 103/ul Critically low 1.2-3.8 [facility] Comment on above: Performed By: #### D ATLIPI, DATPSA, DATBMP #### [facility] [address] [place] [address] Dr. Power Covarrubias Lymphocytes/100 WBC (Bld) 17.7 % Critically low 20.5-60.0 [facility] Comment on above: Performed By: #### D ATLIPI, DATPSA, DATBMP #### [facility] [address] [place] [address] Dr. Power Covarrubias MANUAL DIFF REQ NO Normal [facility] Comment on above: Performed By: #### D ATLIPI, DATPSA, DATBMP #### [facility] [address] [place] [address] Dr. Power Covarrubias MCH (RBC) [Entitic mass] 29.7 pg Normal 25.9-34.0 [facility] Comment on above: Performed By: #### D ATLIPI, DATPSA, DATBMP #### [facility] [address] [place] [address] Dr. Power Covarrubias MCHC (RBC) [Mass/Vol] 32.0 g/dL Normal 29.9-35.2 The [facility] Comment on above: Performed By: #### D ATLIPI, DATPSA, DATBMP #### [facility] [address] [place] [address] Dr. Power Cvoarrubias MCV (RBC) [Entitic vol] 92.8 fL Normal 80.0-94.0 [facility] Comment on above: Performed By: #### D ATLIPI, DATPSA, DATBMP #### [facility] [address] [place] [address] Dr. Power Covarrubias MONO # 0.6 103/ul Normal 0.3-0.8 The [facility] Comment on above: Performed By: #### D ATLIPI, DATPSA, DATBMP #### [facility] [address] [address] [address] Power Covarrubias Monocytes/100 WBC (Bld) 11.1 % Normal 1.7-12.0 The [facility] Comment on above: Performed By: #### D ATLIPI, DATPSA, DATBMP #### [facility] [address] [address] [address] Power Covarrubias NEUT # 3.6 103/ul Normal 1.4-6.5 The [facility] Comment on above: Performed By: #### D ATLIPI, DATPSA, DATBMP #### [facility] [address] [place] [address] Dr. Power Covarrubias Neutrophils/100 WBC (Bld) 66.8 % Normal 43.0-75.0 The [facility] Comment on above: Performed By: #### D ATLIPI, DATPSA, DATBMP #### [facility] [address] [place] [address] Dr. Power Covarrubias Platelet mean volume (Bld) [Entitic vol] 9.8 fL Normal 9.5-13.5 The [facility] Comment on above: Performed By: #### D ATLIPI, DATPSA, DATBMP #### [facility] [address] [place] [address] Dr. Power Covarrubias PLT 199 103/ul Normal 150-450 The [facility] Comment on above: Performed By: #### D ATLIPI, DATPSA, DATBMP #### [facility] [address] [place] [address] Dr. Power Covarrubias RBC 4.04 106/ul Critically low 4.70-6.10 [facility] Comment on above: Performed By: #### D ATLIPI, DATPSA, DATBMP #### [facility] [address] [place] [address] Dr. Power Covarrubias WBC 5.3 103/ul Normal 4.0-11.0 The [facility] Comment on above: Performed By: #### D ATLIPI, DATPSA, DATBMP #### [facility] [address] [place] [address] Dr. Power Covarrubias PROF 14(COMP METB)on 023 Albumin [Mass/Vol] 3.3 g/dL Critically low 3.4-5.0 Th e [facility] Comment on above: Performed By: #### C MP #### [facility] [address] [place] [address] Dr. Power Covarrubias Albumin/Globulin [Mass ratio] 0.9 {ratio} Normal [facility] Comment on above: Performed By: #### C MP #### [facility] [address] [place] [address] Dr. Power Covarrubias ALP [Catalytic activity/Vol] 99 U/L Normal 46-116 [facility] Comment on above: Performed By: #### C MP #### [facility] [address] [place] [address] Dr. Power Covarrubias ALT [Catalytic activity/Vol] 17 U/L Normal 16-63 The [facility] Comment on above: Performed By: #### C MP #### [facility] [address] [place] [address] Dr. Power Covarrubias Anion gap [Moles/Vol] 11.6 mmol/L Normal [facility] Comment on above: Performed By: #### C MP #### [facility] [address] [place] [address] Dr. Power Covarrubias AST [Catalytic activity/Vol] 15 U/L Normal 15-37 The [facility] Comment on above: Performed By: #### C MP #### [facility] [address] [place] [address] Dr. Power Covarrubias Bilirubin [Mass/Vol] 0.6 mg/dL Normal 0.2-1.0 The [facility] Comment on above: Performed By: #### C MP #### [facility] [address] [place] [address] Dr. Power Covarrubias Calcium [Mass/Vol] 9.4 mg/dL Normal 8.5-10.1 [facility] Comment on above: Performed By: #### C MP #### [facility] [address] [address] [address] Power Covarrubias Chloride [Moles/Vol] 107 mmol/L Normal 98-107 [facility] Comment on above: Performed By: #### C MP #### [facility] [address] [address] [address] Power Covarrubias CO2 [Moles/Vol] 29.2 mmol/L Normal 21.0-32.0 [facility] Comment on above: Performed By: #### C MP #### [facility] [address] [place] [address] Dr. Power Covarrubias Creatinine [Mass/Vol] 0.87 mg/dL Normal 0.70-1.30 [facility] Comment on above: Performed By: #### C MP #### [facility] [address] [place] [address] Dr. Power Covarrubias EGFR-AF ESTONIAN >60 Normal >=60 [facility] Comment on above: Performed By: #### C MP #### [facility] [address] [place] [address] Dr. Power Covarrubias EGFR-NON AF ESTONIAN >60 Normal >=60 [facility] Comment on above: Performed By: #### C MP #### [facility] [address] [place] [address] Dr. Power Covarrubias Globulin (S) [Mass/Vol] 3.6 g/dL Normal [facility] Comment on above: Performed By: #### C MP #### [facility] [address] [place] [address] Dr. Power Covarrubias Glucose [Mass/Vol] 107 mg/dL Critically high 74-106 [facility] Comment on above: Performed By: #### C MP #### [facility] [address] [place] [address] Dr. Power Covarrubias Potassium [Moles/Vol] 3.8 mmol/L Normal 3.5-5.1 [facility] Comment on above: Performed By: #### C MP #### [facility] [address] [address] [address] Power Covarrubias Protein [Mass/Vol] 6.9 g/dL Normal 6.4-8.2 [facility] Comment on above: Performed By: #### C MP #### [facility] [address] [address] [address] Power Covarrubias Sodium [Moles/Vol] 144 mmol/L Normal 136-145 [facility] Comment on above: Performed By: #### C MP #### [facility] [address] [place] [address] Dr. Power Covarrubias Urea nitrogen [Mass/Vol] 12.0 mg/dL Normal 7.0-18.0 [facility] Comment on above: Performed By: #### C MP #### [facility] [address] [place] [address] Dr. Power Covarrubias Urea nitrogen/Creatinine [Mass ratio] 13.8 mg/mg Normal [facility] Comment on above: Performed By: #### C MP #### [facility] [address] [place] [address] Dr. Power Covarrubias CBC AUTO DIFFon 08-31-2022 BASO # 0.0 103/ul Normal 0.0-0.1 [facility] Comment on above: Performed By: #### D ATLIPI, DATPSA, DATBMP #### [facility] [address] [place] [address] Dr. Power Covarrubias Basophils/100 WBC (Bld) 0.7 % Normal 0.2-2.0 [facility] Comment on above: Performed By: #### D ATLIPI, DATPSA, DATBMP #### [facility] [address] [place] [address] Dr. Power Covarrubias EO # 0.2 103/ul Normal 0.0-0.7 [facility] Comment on above: Performed By: #### D ATLIPI, DATPSA, DATBMP #### [facility] [address] [place] [address] Dr. Power Covarrubias Eosinophils/100 WBC (Bld) 3.5 % Normal 0.9-7.0 [facility] Comment on above: Performed By: #### D ATLIPI, DATPSA, DATBMP #### [facility] [address] [place] [address] Dr. Power Covarrubias Erythrocyte distribution width (RBC) [Ratio] 13.2 % Normal 11.0-15.0 [facility] Comment on above: Performed By: #### D ATLIPI, DATPSA, DATBMP #### [facility] [address] [place] [address] Dr. Power Covarrubias Hematocrit (Bld) [Volume fraction] 39.3 % Critically low 42.0-54.0 [facility] Comment on above: Performed By: #### D ATLIPI, DATPSA, DATBMP #### [facility] [address] [place] [address] Dr. Power Covarrubias Hemoglobin (Bld) [Mass/Vol] 12.9 g/dL Critically low 14.0-18.0 [facility] Comment on above: Performed By: #### D ATLIPI, DATPSA, DATBMP #### [facility] [address] [place] [address] Dr. Power Covarrubias IG # 0.02 10e3/ul Normal 0.00-0.03 [facility] Comment on above: Performed By: #### D ATLIPI, DATPSA, DATBMP #### [facility] [address] [place] [address] Dr. Power Covarrubias IG % 0.4 % Normal 0.0-0.5 The [facility] Comment on above: Performed By: #### D ATLIPI, DATPSA, DATBMP #### [facility] [address] [place] [address] Dr. Power Covarrubias LYMPH # 0.9 103/ul Critically low 1.2-3.8 [facility] Comment on above: Performed By: #### D ATLIPI, DATPSA, DATBMP #### [facility] [address] [place] [address] Dr. Power Covarrubias Lymphocytes/100 WBC (Bld) 16.4 % Critically low 20.5-60.0 [facility] Comment on above: Performed By: #### D ATLIPI, DATPSA, DATBMP #### [facility] [address] [place] [address] Dr. Power Covarrubias MCH (RBC) [Entitic mass] 30.7 pg Normal 25.9-34.0 The [facility] Comment on above: Performed By: #### D ATLIPI, DATPSA, DATBMP #### [facility] [address] [place] [address] Dr. Power Covarrubias MCHC (RBC) [Mass/Vol] 32.8 g/dL Normal 29.9-35.2 The [facility] Comment on above: Performed By: #### D ATLIPI, DATPSA, DATBMP #### [facility] [address] [place] [address] Dr. Power Covarrubias MCV (RBC) [Entitic vol] 93.6 fL Normal 80.0-94.0 [facility] Comment on above: Performed By: #### D ATLIPI, DATPSA, DATBMP #### [facility] [address] [place] [address] Dr. Power Covarrubias MONO # 0.5 103/ul Normal 0.3-0.8 The [facility] Comment on above: Performed By: #### D ATLIPI, DATPSA, DATBMP #### [facility] [address] [place] [address] Dr. Power Covarrubias Monocytes/100 WBC (Bld) 9.0 % Normal 1.7-12.0 The [facility] Comment on above: Performed By: #### D ATLIPI, DATPSA, DATBMP #### [facility] [address] [place] [address] Dr. Power Covarrubias NEUT # 3.8 103/ul Normal 1.4-6.5 [facility] Comment on above: Performed By: #### D ATLIPI, DATPSA, DATBMP #### [facility] [address] [place] [address] Dr. Power Covarrubias Neutrophils/100 WBC (Bld) 70.0 % Normal 43.0-75.0 [facility] Comment on above: Performed By: #### D ATLIPI, DATPSA, DATBMP #### [facility] [address] [place] [address] Dr. Power Covarrubias Platelet mean volume (Bld) [Entitic vol] 9.9 fL Normal 9.5-13.5 The [facility] Comment on above: Performed By: #### D ATLIPI, DATPSA, DATBMP #### [facility] [address] [place] [address] Dr. Power Covarrubias PLT 195 103/ul Normal 150-450 The [facility] Comment on above: Performed By: #### D ATLIPI, DATPSA, DATBMP #### [facility] [address] [place] [address] Dr. Power Covarrubias RBC 4.20 106/ul Critically low 4.70-6.10 [facility] Comment on above: Performed By: #### D ATLIPI, DATPSA, DATBMP #### [facility] [address] [place] [address] Dr. Power Covarrubias WBC 5.4 103/ul Normal 4.0-11.0 [facility] Comment on above: Performed By: #### D ATLIPI, DATPSA, DATBMP #### [facility] [address] [place] [address] Dr. Power Covarrubias BRE- BMP WITH LIPIDon 2021 Anion gap [Moles/Vol] 10.8 mmol/L Normal [facility] Comment on above: Performed By: #### D ATLIPI, DATPSA, DATBMP #### [facility] [address] [place] [address] Dr. Power Covarrubias Calcium [Mass/Vol] 9.3 mg/dL Normal 8.5-10.1 [facility] Comment on above: Performed By: #### D ATLIPI, DATPSA, DATBMP #### [facility] [address] [place] [address] Dr. Power Covarrubias Chloride [Moles/Vol] 105 mmol/L Normal 98-107 The [facility] Comment on above: Performed By: #### D ATLIPI, DATPSA, DATBMP #### [facility] [address] [address] [address] Power Covarrubias Cholesterol [Mass/Vol] 123 mg/dL Normal <=200 The [facility] Comment on above: Performed By: #### D ATLIPI, DATPSA, DATBMP #### [facility] [address] [address] [address] Power Covarrubias Cholesterol in HDL [Mass/Vol] 51 mg/dL Normal 40-60 The [facility] Comment on above: Performed By: #### D ATLIPI, DATPSA, DATBMP #### [facility] [address] [address] [address] Power Covarrubias Cholesterol in LDL [Mass/Vol] 56.0 mg/dL Normal The [facility] Comment on above: Performed By: #### D ATLIPI, DATPSA, DATBMP #### [facility] [address] [address] [address] Power Covarrubias CO2 [Moles/Vol] 28.2 mmol/L Normal 21.0-32.0 [facility] Comment on above: Performed By: #### D ATLIPI, DATPSA, DATBMP #### [facility] [address] [address] [address] Power Covarrubias Creatinine [Mass/Vol] 0.86 mg/dL Normal 0.70-1.30 The [facility] Comment on above: Performed By: #### D ATLIPI, DATPSA, DATBMP #### [facility] [address] [address] [address] Power Covarrubias EGFR-AF ESTONIAN >60 Normal >=60 [facility] Comment on above: Performed By: #### D ATLIPI, DATPSA, DATBMP #### [facility] [address] [address] [address] Power Covarrubias EGFR-NON AF ESTONIAN >60 Normal >=60 [facility] Comment on above: Performed By: #### D ATLIPI, DATPSA, DATBMP #### [facility] [address] [address] [address] Power Covarrubias Glucose [Mass/Vol] 90 mg/dL Normal 74-106 [facility] Comment on above: Performed By: #### D ATLIPI, DATPSA, DATBMP #### [facility] [address] [address] [address] Power Covarrubias HDL NORMAL > or = 60 mg/dl - LO W CARDIOVASCULAR RISK <40 mg/dl - HIGH CARDIOVASCULAR RISK Normal [facility] Comment on above: Performed By: #### D ATLIPI, DATPSA, DATBMP #### [facility] [address] [place] [address] Dr. Power Covarrubias LDL CALC NORMAL SEE BELOW Normal [facility] Comment on above: Result Comment: <100 mg/dl OPTIMAL 100 - 129 mg/dl NEAR OR ABOVE OPTIMAL 130 - 159 mg/dl BORDERLINE HIGH 160 - 189 mg/dl HIGH >190 mg/dl VERY HIGH Performed By: #### D ATLIPI, DATPSA, DATBMP #### [facility] [address] [place] [address] Dr. Power Covarrubias Potassium [Moles/Vol] 4.0 mmol/L Normal 3.5-5.1 [facility] Comment on above: Performed By: #### D ATLIPI, DATPSA, DATBMP #### [facility] [address] [address] [address] Power Covarrubias Sodium [Moles/Vol] 140 mmol/L Normal 136-145 [facility] Comment on above: Performed By: #### D ATLIPI, DATPSA, DATBMP #### [facility] [address] [address] [address] Power Covarrubias Triglyceride [Mass/Vol] 80 mg/dL Normal <=150 The [facility] Comment on above: Performed By: #### D ATLIPI, DATPSA, DATBMP #### [facility] [address] [address] [address] Power Covarrubias Urea nitrogen [Mass/Vol] 14.0 mg/dL Normal 7.0-18.0 [facility] Comment on above: Performed By: #### D ATLIPI, DATPSA, DATBMP #### [facility] [address] [place] [address] Dr. Power Covarrubias Urea nitrogen/Creatinine [Mass ratio] 16.3 mg/mg Normal [facility] Comment on above: Performed By: #### D ATLIPI, DATPSA, DATBMP #### [facility] [address] [place] [address] Dr. Power Covarrubias VLDL CALC 16.0 mg/dL Normal [facility] Comment on above: Performed By: #### D ATLIPI, DATPSA, DATBMP #### [facility] [address] [place] [address] Dr. Power Covarrubias OCC BLD IMMUNO SCREENon OCCULT BLOOD Negative Normal NEGATIVE The [facility] Comment on above: Performed By: #### O BSCRN #### [facility] [address] [place] [address] Dr. Power Covarrubias T4 [facility] 06-30-2022 T4 [Mass/Vol] 9.2 ug/dL Normal 4.5-12.0 [facility] Comment on above: Performed By: #### D ATLIPI, DATPSA, DATBMP #### [facility] [facility] [address] [place] [address] Dr. Power Covarrubias CBC AUTO DIFFon 06-29-2022 BASO # 0.0 103/ul Normal 0.0-0.1 [facility] Comment on above: Performed By: #### D ATLIPI, DATPSA, DATBMP #### [facility] [address] [place] [address] Dr. Power Covarrubias Basophils/100 WBC (Bld) 0.5 % Normal 0.2-2.0 [facility] Comment on above: Performed By: #### D ATLIPI, DATPSA, DATBMP #### [facility] [address] [place] [address] Dr. Power Covarrubias EO # 0.1 103/ul Normal 0.0-0.7 The [facility] Comment on above: Performed By: #### D ATLIPI, DATPSA, DATBMP #### [facility] [address] [place] [address] Dr. Power Covarrubias Eosinophils/100 WBC (Bld) 2.5 % Normal 0.9-7.0 The [facility] Comment on above: Performed By: #### D ATLIPI, DATPSA, DATBMP #### [facility] [address] [place] [address] Dr. Power Covarrubias Erythrocyte distribution width (RBC) [Ratio] 13.4 % Normal 11.0-15.0 [facility] Comment on above: Performed By: #### D ATLIPI, DATPSA, DATBMP #### [facility] [address] [place] [address] Dr. Power Covarrubias Hematocrit (Bld) [Volume fraction] 38.1 % Critically low 42.0-54.0 [facility] Comment on above: Performed By: #### D ATLIPI, DATPSA, DATBMP #### [facility] [address] [place] [address] Dr. Power Covarrubias Hemoglobin (Bld) [Mass/Vol] 12.0 g/dL Critically low 14.0-18.0 [facility] Comment on above: Performed By: #### D ATLIPI, DATPSA, DATBMP #### [facility] [address] [place] [address] Dr. Power Covarrubias IG # 0.01 10e3/ul Normal 0.00-0.03 [facility] Comment on above: Performed By: #### D ATLIPI, DATPSA, DATBMP #### [facility] [address] [place] [address] Dr. Power Covarrubias IG % 0.2 % Normal 0.0-0.5 [facility] Comment on above: Performed By: #### D ATLIPI, DATPSA, DATBMP #### [facility] [address] [address] [address] Power Covarrubias LYMPH # 0.9 103/ul Critically low 1.2-3.8 [facility] Comment on above: Performed By: #### D ATLIPI, DATPSA, DATBMP #### [facility] [address] [address] [address] Power Covarrubias Lymphocytes/100 WBC (Bld) 15.5 % Critically low 20.5-60.0 [facility] Comment on above: Performed By: #### D ATLIPI, DATPSA, DATBMP #### [facility] [address] [address] [address] Power Covarrubias MANUAL DIFF REQ NO Normal [facility] Comment on above: Performed By: #### D ATLIPI, DATPSA, DATBMP #### [facility] [address] [place] [address] Dr. Power Covarrubias MCH (RBC) [Entitic mass] 30.2 pg Normal 25.9-34.0 [facility] Comment on above: Performed By: #### D ATLIPI, DATPSA, DATBMP #### [facility] [address] [place] [address] Dr. Power Covarrubias MCHC (RBC) [Mass/Vol] 31.5 g/dL Normal 29.9-35.2 [facility] Comment on above: Performed By: #### D ATLIPI, DATPSA, DATBMP #### [facility] [address] [address] [address] Power Covarrubias MCV (RBC) [Entitic vol] 96.0 fL Critically high 80.0-94.0 [facility] Comment on above: Performed By: #### D ATLIPI, DATPSA, DATBMP #### [facility] [address] [place] [address] Dr. Power Covarrubias MONO # 0.5 103/ul Normal 0.3-0.8 [facility] Comment on above: Performed By: #### D ATLIPI, DATPSA, DATBMP #### [facility] [address] [place] [address] Dr. Power Covarrubias Monocytes/100 WBC (Bld) 9.5 % Normal 1.7-12.0 The [facility] Comment on above: Performed By: #### D ATLIPI, DATPSA, DATBMP #### [facility] [address] [place] [address] Dr. Power Covarrubias NEUT # 4.1 103/ul Normal 1.4-6.5 The [facility] Comment on above: Performed By: #### D ATLIPI, DATPSA, DATBMP #### [facility] [address] [place] [address] Dr. Power Covarrubias Neutrophils/100 WBC (Bld) 71.8 % Normal 43.0-75.0 The [facility] Comment on above: Performed By: #### D ATLIPI, DATPSA, DATBMP #### [facility] [address] [place] [address] Dr. Power Covarrubias Platelet mean volume (Bld) [Entitic vol] 9.8 fL Normal 9.5-13.5 The [facility] Comment on above: Performed By: #### D ATLIPI, DATPSA, DATBMP #### [facility] [address] [place] [address] Dr. Power Covarrubias PLT 212 103/ul Normal 150-450 [facility] Comment on above: Performed By: #### D ATLIPI, DATPSA, DATBMP #### [facility] [address] [place] [address] Dr. Power Covarrubias RBC 3.97 106/ul Critically low 4.70-6.10 [facility] Comment on above: Performed By: #### D ATLIPI, DATPSA, DATBMP #### [facility] [address] [place] [address] Dr. Power Covarrubias WBC 5.7 103/ul Normal 4.0-11.0 The [facility] Comment on above: Performed By: #### D ATLIPI, DATPSA, DATBMP #### [facility] [address] [address] [address] Power Covarrubias FREE T3on 06-29-2022 FREE T3 2.73 pg/mlL Normal 2.18-3.98 [facility] Comment on above: Performed By: #### D ATLIPI, DATPSA, DATBMP #### [facility] [address] [address] [address] Power Covarrubias GLYCOHEMOGLOBIN A1Con 2021 ADA RECOMMENDATION SEE BELOW Normal [facility] Comment on above: Result Comment: ADA RECOMMENDED LIMIT 4.0 - 6.0 ADA THERAPEUTIC TARGET < 7.0 ACTION SUGGESTED > 7.0 Performed By: #### A 1C #### [facility] [address] [place] [address] Dr. Power Covarrubias Glucose [Mass/Vol] 114 mg/dL Normal [facility] Comment on above: Performed By: #### A 1C #### [facility] [address] [place] [address] Dr. Power Covarrubias HbA1c (Bld) [Mass fraction] 5.6 % Normal 4.5-6.2 [facility] Comment on above: Performed By: #### A 1C #### [facility] [address] [place] [address] Dr. Power Covarrubias LIPID PROFILEon 06-29-2022 CHOL-HDL RATIO NORM SEE BELOW Normal [facility] Comment on above: Result Comment: 3.3 - 4.4 LOW RISK 4.4 - 7.1 AVERAGE RISK 7.1 - 11.0 MODERATE RISK >11.0 HIGH RISK Performed By: #### D ATLMACK, DATPSA, DATBMP #### [facility] [address] [place] [address] Dr. Power Covarrubias Cholesterol [Mass/Vol] 110 mg/dL Normal <=200 [facility] Comment on above: Performed By: #### D ATLIPEmeterio DATPSA, DATBMP #### [facility] [address] [place] [address] Dr. Power Covarrubias Cholesterol in HDL [Mass/Vol] 47 mg/dL Normal 40-60 [facility] Comment on above: Performed By: #### D ATLIPI, DATPSA, DATBMP #### [facility] [address] [address] [address] Power Covarrubias Cholesterol in LDL [Mass/Vol] 51.2 mg/dL Normal [facility] Comment on above: Performed By: #### D ATLIPI, DATPSA, DATBMP #### [facility] [address] [address] [address] Power Covarrubias Cholesterol.total/Ch olesterol in HDL [Mass ratio] 2.3 {ratio} Normal [facility] Comment on above: Performed By: #### D ATLIPI, DATPSA, DATBMP #### [facility] [address] [address] [address] Power Covarrubias HDL NORMAL > or = 60 mg/dl - LO W CARDIOVASCULAR RISK <40 mg/dl - HIGH CARDIOVASCULAR RISK Normal [facility] Comment on above: Performed By: #### D ATLIPI, DATPSA, DATBMP #### [facility] [address] [address] [address] Power Covarrubias LDL CALC NORMAL SEE BELOW Normal [facility] Comment on above: Result Comment: <100 mg/dl OPTIMAL 100 - 129 mg/dl NEAR OR ABOVE OPTIMAL 130 - 159 mg/dl BORDERLINE HIGH 160 - 189 mg/dl HIGH >190 mg/dl VERY HIGH Performed By: #### D ATLIPI, DATPSA, DATBMP #### [facility] [address] [address] [address] Power Covarrubias Triglyceride [Mass/Vol] 59 mg/dL Normal <=150 The [facility] Comment on above: Performed By: #### D ATLIPI, DATPSA, DATBMP #### [facility] [address] [address] [address] Power Covarrubias VLDL CALC 11.8 mg/dL Normal [facility] Comment on above: Performed By: #### D ATLIPI, DATPSA, DATBMP #### [facility] [address] [address] [address] Power Covarrubias PROF 14(COMP METB)on 022 Albumin [Mass/Vol] 3.3 g/dL Critically low 3.4-5.0 Th e [facility] Comment on above: Performed By: #### D ATLIPI, DATPSA, DATBMP #### [facility] [address] [address] [address] Power Covarrubias Albumin/Globulin [Mass ratio] 0.9 {ratio} Normal [facility] Comment on above: Performed By: #### D ATLIPI, DATPSA, DATBMP #### [facility] [address] [address] [address] Power Covarrubias ALP [Catalytic activity/Vol] 100 U/L Normal 46-116 [facility] Comment on above: Performed By: #### D ATLIPI, DATPSA, DATBMP #### [facility] [address] [place] [address] Dr. Power Covarrubias ALT [Catalytic activity/Vol] 16 U/L Normal 16-63 [facility] Comment on above: Performed By: #### D ATLIPI, DATPSA, DATBMP #### [facility] [address] [address] [address] Power Covarrubias Anion gap [Moles/Vol] 11.4 mmol/L Normal [facility] Comment on above: Performed By: #### D ATLIPI, DATPSA, DATBMP #### [facility] [address] [address] [address] Power Covarrubias AST [Catalytic activity/Vol] 14 U/L Critically low 15-37 [facility] Comment on above: Performed By: #### D ATLIPI, DATPSA, DATBMP #### [facility] [address] [address] [address] Power Covarrubias Bilirubin [Mass/Vol] 0.7 mg/dL Normal 0.2-1.0 [facility] Comment on above: Performed By: #### D ATLIPI, DATPSA, DATBMP #### [facility] [address] [address] [address] Power Covarrubias Calcium [Mass/Vol] 9.0 mg/dL Normal 8.5-10.1 [facility] Comment on above: Performed By: #### D ATLIPI, DATPSA, DATBMP #### [facility] [address] [address] [address] Power Covarrubias Chloride [Moles/Vol] 107 mmol/L Normal 98-107 The [facility] Comment on above: Performed By: #### D ATLIPI, DATPSA, DATBMP #### [facility] [address] [address] [address] Power Covarrubias CO2 [Moles/Vol] 28.5 mmol/L Normal 21.0-32.0 [facility] Comment on above: Performed By: #### D ATLIPI, DATPSA, DATBMP #### [facility] [address] [place] [address] Dr. Power Covarrubias Creatinine [Mass/Vol] 0.87 mg/dL Normal 0.70-1.30 The [facility] Comment on above: Performed By: #### D ATLIPI, DATPSA, DATBMP #### [facility] [address] [place] [address] Dr. Power Covarrubias EGFR-AF ESTONIAN >60 Normal >=60 [facility] Comment on above: Performed By: #### D ATLIPI, DATPSA, DATBMP #### [facility] [address] [place] [address] Dr. Power Covarrubias EGFR-NON AF ESTONIAN >60 Normal >=60 The [facility] Comment on above: Performed By: #### D ATLIPI, DATPSA, DATBMP #### [facility] [address] [place] [address] Dr. Power Covarrubias Globulin (S) [Mass/Vol] 3.6 g/dL Normal The [facility] Comment on above: Performed By: #### D ATLIPI, DATPSA, DATBMP #### [facility] [address] [place] [address] Dr. Power Covarrubias Glucose [Mass/Vol] 90 mg/dL Normal 74-106 [facility] Comment on above: Performed By: #### D ATLIPI, DATPSA, DATBMP #### [facility] [address] [place] [address] Dr. Power Covarrubias Potassium [Moles/Vol] 3.9 mmol/L Normal 3.5-5.1 [facility] Comment on above: Performed By: #### D ATLIPI, DATPSA, DATBMP #### [facility] [address] [place] [address] Dr. Power Covarrubias Protein [Mass/Vol] 6.9 g/dL Normal 6.4-8.2 [facility] Comment on above: Performed By: #### D ATLIPI, DATPSA, DATBMP #### [facility] [address] [place] [address] Dr. Power Covarrubias Sodium [Moles/Vol] 143 mmol/L Normal 136-145 [facility] Comment on above: Performed By: #### D ATLIPI, DATPSA, DATBMP #### [facility] [address] [place] [address] Dr. Power Covarrubias Urea nitrogen [Mass/Vol] 13.0 mg/dL Normal 7.0-18.0 [facility] Comment on above: Performed By: #### D ATLIPI, DATPSA, DATBMP #### [facility] [address] [place] [address] Dr. Power Covarrubias Urea nitrogen/Creatinine [Mass ratio] 14.9 mg/mg Normal [facility] Comment on above: Performed By: #### D ATLIPI, DATPSA, DATBMP #### [facility] [address] [place] [address] Dr. Power Covarrubias TSHon 06-29-2022 TSH 2.585 uIU/mL Normal 0.358-3.740 [facility] Comment on above: Performed By: #### T SH, LIPID, FT3, CMP #### [facility] [address] [place] [address] Dr. Power Covarrubias CBC AUTO DIFFon 04-09-2022 BASO # 0.1 103/ul Normal 0.0-0.1 [facility] Comment on above: Performed By: #### D ATCBC #### [facility] [address] [place] [address] Dr. Power Covarrubias Basophils/100 WBC (Bld) 1.0 % Normal 0.2-2.0 [facility] Comment on above: Performed By: #### D ATCBC #### [facility] [address] [place] [address] Dr. Power Covarrubias EO # 0.2 103/ul Normal 0.0-0.7 [facility] Comment on above: Performed By: #### D ATCBC #### [facility] [address] [place] [address] Dr. Power Covarrubias Eosinophils/100 WBC (Bld) 3.7 % Normal 0.9-7.0 [facility] Comment on above: Performed By: #### D ATCBC #### [facility] [address] [place] [address] Dr. Power Covarrubias Erythrocyte distribution width (RBC) [Ratio] 13.3 % Normal 11.0-15.0 [facility] Comment on above: Performed By: #### D ATCBC #### [facility] [address] [place] [address] Dr. Power Covarrubias Hematocrit (Bld) [Volume fraction] 37.8 % Critically low 42.0-54.0 [facility] Comment on above: Performed By: #### D ATCBC #### [facility] [address] [place] [address] Dr. Power Covarrubias Hemoglobin (Bld) [Mass/Vol] 12.4 g/dL Critically low 14.0-18.0 The [facility] Comment on above: Performed By: #### D ATCBC #### [facility] [address] [place] [address] Dr. Power Covarrubias IG # 0.01 10e3/ul Normal 0.00-0.03 [facility] Comment on above: Performed By: #### D ATCBC #### [facility] [address] [place] [address] Dr. Power Covarrubias IG % 0.2 % Normal 0.0-0.5 The [facility] Comment on above: Performed By: #### D ATCBC #### [facility] [address] [place] [address] Dr. Power Covarrubias LYMPH # 1.0 103/ul Critically low 1.2-3.8 [facility] Comment on above: Performed By: #### D ATCBC #### [facility] [address] [place] [address] Dr. Power Covarrubias Lymphocytes/100 WBC (Bld) 19.0 % Critically low 20.5-60.0 The [facility] Comment on above: Performed By: #### D ATCBC #### [facility] [address] [place] [address] Dr. Power Covarrubias MCH (RBC) [Entitic mass] 30.9 pg Normal 25.9-34.0 The [facility] Comment on above: Performed By: #### D ATCBC #### [facility] [address] [place] [address] Dr. Power Covarrubias MCHC (RBC) [Mass/Vol] 32.8 g/dL Normal 29.9-35.2 The [facility] Comment on above: Performed By: #### D ATCBC #### [facility] [address] [place] [address] Dr. Power Covarrubias MCV (RBC) [Entitic vol] 94.3 fL Critically high 80.0-94.0 The [facility] Comment on above: Performed By: #### D ATCBC #### [facility] [address] [place] [address] Dr. Power Covarrubias MONO # 0.5 103/ul Normal 0.3-0.8 The [facility] Comment on above: Performed By: #### D ATCBC #### [facility] [address] [place] [address] Dr. Power Covarrubias Monocytes/100 WBC (Bld) 9.4 % Normal 1.7-12.0 The [facility] Comment on above: Performed By: #### D ATCBC #### [facility] [address] [place] [address] Dr. Power Covarrubias NEUT # 3.4 103/ul Normal 1.4-6.5 [facility] Comment on above: Performed By: #### D ATCBC #### [facility] [address] [address] [address] Power Covarrubias Neutrophils/100 WBC (Bld) 66.7 % Normal 43.0-75.0 [facility] Comment on above: Performed By: #### D ATCBC #### [facility] [address] [address] [address] Power Covarrubias Platelet mean volume (Bld) [Entitic vol] 9.9 fL Normal 9.5-13.5 [facility] Comment on above: Performed By: #### D ATCBC #### [facility] [address] [address] [address] Power Covarrubias PLT 205 103/ul Normal 150-450 The [facility] Comment on above: Performed By: #### D ATCBC #### [facility] [address] [address] [address] Power Covarrubias RBC 4.01 106/ul Critically low 4.70-6.10 [facility] Comment on above: Performed By: #### D ATCBC #### [facility] [address] [address] [address] Power Covarrubias WBC 5.1 103/ul Normal 4.0-11.0 [facility] Comment on above: Performed By: #### D ATCBC #### [facility] [address] [address] [address] Power Covarrubias BRE- BMP WITH LIPIDon 2021 Anion gap [Moles/Vol] 9.5 mmol/L Normal [facility] Comment on above: Performed By: #### D ATLIPI, DATPSA, DATBMP #### [facility] [address] [place] [address] Dr. Power Covarrubias Calcium [Mass/Vol] 9.0 mg/dL Normal 8.5-10.1 [facility] Comment on above: Performed By: #### D ATLIPI, DATPSA, DATBMP #### [facility] [address] [address] [address] Power Covarrubias Chloride [Moles/Vol] 108 mmol/L Critically high 98-107 The [facility] Comment on above: Performed By: #### D ATLIPI, DATPSA, DATBMP #### [facility] [address] [address] [address] Power Covarrubias Cholesterol [Mass/Vol] 114 mg/dL Normal <=200 The [facility] Comment on above: Performed By: #### D ATLIPI, DATPSA, DATBMP #### [facility] [address] [address] [address] Power Covarrubias Cholesterol in HDL [Mass/Vol] 49 mg/dL Normal 40-60 The [facility] Comment on above: Performed By: #### D ATLIPI, DATPSA, DATBMP #### [facility] [address] [place] [address] Dr. Power Covarrubias Cholesterol in LDL [Mass/Vol] 50.4 mg/dL Normal The [facility] Comment on above: Performed By: #### D ATLIPI, DATPSA, DATBMP #### [facility] [address] [place] [address] Dr. Power Covarrubias CO2 [Moles/Vol] 28.3 mmol/L Normal 21.0-32.0 [facility] Comment on above: Performed By: #### D ATLIPI, DATPSA, DATBMP #### [facility] [address] [address] [address] Power Covarrubias Creatinine [Mass/Vol] 0.88 mg/dL Normal 0.70-1.30 [facility] Comment on above: Performed By: #### D ATLIPI, DATPSA, DATBMP #### [facility] [address] [place] [address] Dr. Power Covarrubias EGFR-AF ESTONIAN >60 Normal >=60 [facility] Comment on above: Performed By: #### D ATLIPI, DATPSA, DATBMP #### [facility] [address] [address] [address] Power Covarrubias EGFR-NON AF ESTONIAN >60 Normal >=60 [facility] Comment on above: Performed By: #### D ATLIPI, DATPSA, DATBMP #### [facility] [address] [address] [address] Power Covarrubias Glucose [Mass/Vol] 107 mg/dL Critically high 74-106 [facility] Comment on above: Performed By: #### D ATLIPI, DATPSA, DATBMP #### [facility] [address] [address] [address] Power Covarrubias HDL NORMAL > or = 60 mg/dl - LO W CARDIOVASCULAR RISK <40 mg/dl - HIGH CARDIOVASCULAR RISK Normal [facility] Comment on above: Performed By: #### D ATLIPI, DATPSA, DATBMP #### [facility] [address] [place] [address] Dr. Power Covarrubias LDL CALC NORMAL SEE BELOW Normal [facility] [place] [facility] Comment on above: Result Comment: <100 mg/dl OPTIMAL 100 - 129 mg/dl NEAR OR ABOVE OPTIMAL 130 - 159 mg/dl BORDERLINE HIGH 160 - 189 mg/dl HIGH >190 mg/dl VERY HIGH Performed By: #### D ATLIPI, DATPSA, DATBMP #### [facility] [address] [place] [address] Dr. Power Covarrubias Potassium [Moles/Vol] 3.8 mmol/L Normal 3.5-5.1 [facility] Comment on above: Performed By: #### D ATLIPI, DATPSA, DATBMP #### [facility] [address] [address] [address] Power Covarrubias Sodium [Moles/Vol] 142 mmol/L Normal 136-145 [facility] Comment on above: Performed By: #### D ATLIPI, DATPSA, DATBMP #### [facility] [address] [address] [address] Power Covarrubias Triglyceride [Mass/Vol] 73 mg/dL Normal <=150 [facility] Comment on above: Performed By: #### D ATLIPI, DATPSA, DATBMP #### [facility] [address], [place] [address] Dr. Power Covarrubias Urea nitrogen [Mass/Vol] 12.0 mg/dL Normal 7.0-18.0 [facility] Comment on above: Performed By: #### D ATLIPI, DATPSA, DATBMP #### [facility] [id number] Power Covarrubias Urea nitrogen/Creatinine [Mass ratio] 13.6 mg/mg Normal [facility] Comment on above: Performed By: #### D ATLIPI, DATPSA, DATBMP #### [facility] [address] [address] [address] Power Covarrubias VLDL CALC 14.6 mg/dL Normal [facility] Comment on above: Performed By: #### D ATLIPI, DATPSA, DATBMP #### [facility] [address] [address] [address] Power Covarrubias Cardiovascular Lab Reporton 07-03-2020 Cardiovascular Lab Report [facility] Patient Name: [facility] MR #: [id number] Physician: Shiloh Hester Department of M.D. Medicine Service Date: 07/03/2020 Division of Birthdate: 1945 Cardiology Room #: Adult Cardiovascular Services [address] [address] Cardiovascular Laboratory Report FINAL IMPRESSIONS: 1. Jenb-yk-cipbftrd 3-vessel coronary artery disease. 2. Pcrx-ra-zvfxjejb left main coronary artery disease that appears unchanged from prior angiography. 3. Normal global left ventricular systolic function by noninvasive imaging. 4. Severely elevated right-sided heart pressures by echocardiography. RECOMMENDATIONS: 1. Aggressive cardiovascular risk factor modification. 2. Optimization of medical management; will increase his Lasix to 40 mg p.o. b.i.d. with a followup basic metabolic panel in a week. 3. We will switch his Toprol-XL to Coreg 25 mg p.o. b.i.d. for more aggressive blood pressure control. 4. High-intensity statin therapy, aspirin are indicated. 5. Follow up with Dr. Hester in the [facility] in the next 1 to 2 months. 6. Follow up with Dr. Gould as scheduled. PROCEDURES: Ultrasound-guided access to the right internal jugular vein; this was aborted, ultrasound-guided access to the left radial artery, bilateral selective coronary angiography. METHODS: After risks, benefits, and alternatives were explained, written informed consent was obtained. The patient was prepped and draped in usual sterile fashion over the right neck and left wrist. Using 1% lidocaine solution, local infiltration anesthesia was achieved over the right neck. Under ultrasound guidance attempts to cannulate the right internal jugular vein were unsuccessful due to inability to advance the wire. Therefore this was aborted after 2 attempts. Manual pressure was held for hemostasis. Local infiltration anesthesia was achieved over the left wrist. Under ultrasound guidance, a micropuncture kit was used to access the left radial artery. A 6-Maori glide sheath was inserted without difficulty. Resistance advancing the Ledezma wire was encountered; therefore, angiography via the JR catheter was performed. This revealed a significantly small caliber radial artery. Intra-arterial nitroglycerin was administered. A soft angled Glidewire was used to traverse the narrow segment. Angiography was completed using a JR4 and JL4 catheters. After reviewing the images, it was elected to conclude the procedure. All catheters were removed. The radial sheath was removed with application of a TR band per protocol to achieve optimal hemostasis. Overall, the patient tolerated the procedure well. There were no overt complications. He was to be transferred to the holding area in stable condition. FINDINGS: Hemodynamics. AO 157/79. LEFT VENTRICULOGRAPHY: This was not performed. Ejection fraction is normal by echocardiography. CORONARY ARTERIES: Left main coronary artery: This arises from the left coronary cusp. It bifurcates into the left anterior descending and left circumflex coronary arteries and shows a long segment 30% stenosis in the midportion to the bifurcation. This appears calcific and unchanged from prior angiography. Left anterior descending coronary artery: This shows a 30% proximal stenosis a 30% to 40% mid vessel stenosis and diffuse caliber reduction distally. Left circumflex coronary artery: This is a small vessel with mild diffuse plaque. Ramus intermedius: This is a moderate-sized branching vessel with 60% ostial/proximal stenosis that appears unchanged. Right coronary artery: This is a large dominant vessel giving rise to the posterior descending and posterolateral branches. It shows diffuse caliber reduction distally with scattered 30% to 40% stenosis in the mid to distal portion. INDICATION: Exertional shortness of breath. Electronically Signed by: Shiloh Hester M.D. 07/06/2020 02:36 P Shiloh Hester M.D. Date Dict: 07/03/2020/02:20 P/Shiloh Hester M.D. Date Trans: 07/03/2020 02:42 P/soniyao [id number] cc: Neo Gould M.D. [address], [place] [address] [place] [facility] Vital Signs Date Time Vital Sign Value Performing Clinician Zbigniew stinson 03-28-2023 14:23-0400 Blood Pressure Location Zhang DENISE [facility] 03-28-2023 14:23-0400 Diastolic blood pressure 60 mm[Hg] Zhang CHENL [facility] 03-28-2023 14:23-0400 Heart rate 60 /min [facility] 03-28-2023 14:23-0400 Respiratory rate 16 /min Zhang DENISE [facility] 03-28-2023 14:23-0400 Systolic blood pressure 116 mm[Hg] Zhang DENISE [facility] Encounters Encounter Date Encounter Type Care Provider Facility Start: 09-13-2023 ambulatory Neo Gould Facility:[facility] [place] Start: 06-15-2023 ambulatory Zhang DENISE Facility:[facility] [place] Start: 06-01-2023 End: 06-01-2023 [facility] Start: 05-09-2023 ambulatory Zhang DENISE Facility :[facility] [place] Start: 04-26-2023 End: 04-27-2023 ambulatory Zhang DENISE Facility:CD:[id number] Start: 03-28-2023 End: 03-29-2023 ambulatory Zhang R HOWIE Facility:[facility] [place] Start: 03-28-2023 End: 03-28-2023 Patient encounter procedure Zhang DENISE [facility] Start: 03-03-2023 ambulatory Neo Gould Facility:[facility] [place] Start: 03-03-2023 End: 03-04-2023 ambulatory Neo Gould Facility:[facility] [place] Start: 03-01-2023 End: 03-02-2023 ambulatory NONE LISTED REQUEST Facility:[facility] Start: 12-10-2022 End: 12-11-[address] NEO GOULD . Facility:[facility] Start: 08-31-2022 End: 09-01-[address] NONE LISTED REQUEST Facility:[facility] Start: 06-29-2022 End: 06-30-2022 ambulatory PEBBLES WOODARD Facility:[facility] Start: 04-09-2022 End: 04-10-2022 ambulatory NONE LISTED REQUEST Facility: Procedures Date Procedure Procedure Detail Performing Clinician Start: 03-01-2023 PSA screening PEBBLES B OES Comment on above: Performed By: #### D ATLIPI, DATPSA, DATBMP #### [facility] [address] [place] [address] Dr. Power Covarrubias Start: 08-31-2022 PSA screening PEBBLES B [facility] Comment on above: Performed By: #### D ATLIPI, DATPSA, DATBMP #### [facility] [address] [address] [address] Power Covarrubias Start: 06-29-2022 PSA screening PEBBLES B OES Comment on above: Performed By: #### P SASC #### [facility] [address] [place] [address] Dr. Power Covarrubias Start: 10-04-2017 Colonoscopy Zhang NG Excision of lumbar intervertebral disc Zhang NILL Comment on above: L5 Repair of hip Zhang NILL Immunizations Immunization Date Immunization Notes Care Provider Fa cili 04-29-2021 SARS-CoV-2 (COVID-19 ) mRNA BNT-162b2 vax Zhang NILL [facility] 04-09-2021 SARS-CoV-2 (COVID-19 ) mRNA BNT-162b2 vax Zhang NILL [facility] Payers Date Payer Category Payer Unknown [id number] 1958 Self-pay 1958 Unknown [id number] 1945 Unknown [id number] 2.16.84 [id number] 1945 Unknown [id number] 2.16.84 [id number] 1945 Unknown [id number] 2.16.8 [id number] 1945 Unknown [id number] 2.16.8 [id number] 1945 Unknown [id number] 2.16.8 [id number] 1945 Unknown [id number] 2.16.8 [id number] 1945 Unknown [id number] 2.16.8 [id number] 1945 Unknown [id number] 2.16.8 [id number] Unknown [id number] 2.16.84 [id number] Unknown [id number] 2.16.84 [id number] Unknown [id number] 2.16.84 [id number] Social History Date Type Detail Facility Start: 03-28-2023 Tobacco smoking status Never s moked tobacco (finding) [facility] Tobacco smoking status Never [facility] Sex Assigned At Male [facility] Functional Status Date Assessment Result Facility 03-28-2023 Functional Status N/A [facility] Progress note 06-01-2023 Note Date & Type Note Facility 06-01-2023 Note Cardiology Clinic No te Subjective Oscar Cox is a 78 y.o. year old male patient with past medical history of atrial fibrillation, hypertension, and peripheral venous insufficiency seen in follow-up. Patient Active Problem List Diagnosis Acquired hallux valgus Adenocarcinoma of prostate (CMS/HCC) Arthritis of left hip Arthritis of right knee Body mass index 40.0-44.9, adult (CMS/HCC) Chronic ischemic heart disease Premature beats Difficulty walking Hydrocele Hypertensive disorder Onychomycosis due to dermatophyte Peripheral venous insufficiency Presence of right artificial hip joint Primary cardiomyopathy (CMS/HCC) Primary osteoarthritis of left knee Primary osteoarthritis of right hip Urge incontinence of urine Family History Family history unknown: Yes Social History Tobacco Use Smoking status: Former Types: Cigarettes Smokeless tobacco: Never Substance Use Topics Alcohol use: Not Currently Drug use: Never Update: 06/01/2023 Fell twice in 2 weeks about 6 weeks ago He had another fall about a month ago He was admitted 04/28-05/02 at [facility] following the last fall and has been in rehab since then He was bradycardic in the hospital and his Carvedilol was discontinued and thinks he was started on Lisinopril Has been experiencing lower extremity edema over the last 3 weeks He developed hematuria over the past weekend and his Eliquis was discontinued with resolution of hematuria No chest pain, stable dyspnea on exertion, or palpitations Review of Systems Cardiovascular: Positive for dyspnea on exertion and leg swelling. Negative for chest pain, irregular heartbeat, near-syncope, orthopnea, palpitations, paroxysmal nocturnal dyspnea and syncope. Objective Visit Vitals BP 90/54 (BP Location: Left arm, Patient Position: Sitting, BP Cuff Size: Adult) Pulse 65 Resp 11 Ht 1.778 m (5' 10 ) Wt 123 kg (271 lb) SpO2 97% BMI 38.88 kg/m??? Smoking Status Former BSA 2.46 m??? Physical Exam General: Awake, alert, NAD Pulm: Breath sounds clear to ascultation bilaterally with no wheeze, crackles or rhonchi Cards: Regular rate and rhythm, S1, S2. No S3 or S4 gallop. Murmur: none Extr: Lower extremity edema: 1+. Skin: warm, dry, well perfused Neuro: A&Ox3, No gross deficits Allergies No Known Allergies Medications Current Outpatient Medications: apixaban (Eliquis) 5 mg tablet, Take 1 tablet by mouth in the morning and at bedtime., Disp: , Rfl: atorvastatin (Lipitor) 80 mg tablet, Take 1 tablet by mouth at bedtime., Disp: , Rfl: baclofen (Lioresal) 10 mg tablet, TAKE 1/2 (ONE-HALF) TO 1 (ONE) TABLET BY MOUTH TWICE DAILY, Disp: , Rfl: furosemide (Lasix) 40 mg tablet, Take 40 mg by mouth twice a day., Disp: , Rfl: hydroxychloroquine (Plaquenil) 200 mg tablet, Take 1 tablet by mouth in the morning., Disp: , Rfl: hyoscyamine (Anaspaz,Levsin) 0.125 mg tablet, Take 0.125 mg by mouth every 4 (four) hours if needed for cramping., Disp: , Rfl: oxybutynin (Ditropan) 5 mg tablet, Take 1 tablet by mouth in the morning, afternoon, and at bedtime., Disp: , Rfl: potassium chloride CR (K-Tab) 20 mEq ER tablet, Take 1 tablet by mouth in the morning., Disp: , Rfl: lisinopril 20 mg tablet, Take 20 mg by mouth in the morning., Disp: , Rfl: Recent Labs 05/10/2023 WBC 7.5, hemoglobin 10, hematocrit 32, platelets 189 Sodium 141, potassium 4, chloride 108, CO2 25.9, BUN 16, serum creatinine 0.95, estimated GFR greater than 60% Imaging and other tests Echocardiogram: 06/22/2021 Global left ventricular systolic function is normal. Visually estimated ejection fraction is 60 to 65%. No significant wall motion abnormalities. Mild left ventricular hypertrophy. The right atrium is mildly dilated. The right ventricle is normal in size and systolic function. Mild mitral regurgitation. Coronary angiography: 07/03/2020 Mild to moderate three-vessel coronary artery disease Mild to moderate left main coronary artery disease that appears unchanged from prior angiography Normal global left ventricular systolic function by noninvasive imaging Severely elevated right sided heart pressures by echocardiography Stress test: 02/13/2018 LVEF was 66% ECG response was not ischemic. The test was performed while patient was taking calcium channel jv, antihypertensive Myocardial perfusion imaging showed normal perfusion in all fritz Wall motion normal in all areas Assessment Diagnoses and all orders for this visit: Essential hypertension Persistent atrial fibrillation (CMS/HCC) - ECG 12 lead; Future Bradycardia Dyspnea on exertion - Complete Echo (TTE) w/wo Imaging Agent, Strain, 3D, Bubble Study; Future Bilateral lower extremity edema Chronic diastolic heart failure (CMS/HCC) Plan 1. Hypertension - He is hypertensive here today. Will decrease his lisinopril to 10 mg. His carvedilol was discontinued due to bradycardia during ho (more content not included)... [facility] Clinical Note 03-28-2023 Note Date & Type Note Facility 03-28-2023 Note Chief Complaint consultation for colonoscopy HPI Staff 78 year old male presents on consultation from Dr. Gould for surveillance colonoscopy. Denies abdominal or rectal pain. No rectal bleeding or change in bowel habits. Denies nausea or vomiting. No unexplained weight loss. Last colonoscopy completed 09/2017 with tubular adenoma. No known family history of colon cancer. Patient on Eliquis for a.fib. History of Present Illness 78 yo male with h/o CAD, atrial fibrillation, on Eliquis, htn, cervical disc disease, prostate cancer; referred for surveillance colonoscopy, last colonoscopy 2016 with removal of small cecal tubular adenoma; denies change in bms or blood ins stool; no abd complaints; no abd operations; no Eliquis, no asa or NSAID use, no SBE prophylaxis; no fmhx of GI malignancy or IBD; no tobacco use. Review of Systems PHQ Score Initial Depression Screen Score: 0 ROS - Provider Constitutional: no fever, no sweats, no weight loss. Eyes: no glasses, no blurred vision, no visual loss. ENMT: no dentures, no hoarseness, no swallowing difficulties, no hearing loss, no ear infection(s), no nose bleeds. Cardiovascular: normal blood pressure, no chest pain, regular heartbeat, no heart murmur. Respiratory: no shortness of breath, no cough, no asthma, no wheezing. Gastrointestinal: no nausea, no vomiting, no diarrhea, no constipation, no blood in stool, no change in bowel habits, no abdominal pain, no hepatitis. Genitourinary: no kidney stones, no urine infection, no dysuria. Musculoskeletal: yes pain, yes weakness. Skin: no changing moles, no rash, no skin lumps. Neurologic: no seizures, no epilepsy, no headache. Psychiatric: no emotional or psychiatric problem. Heme/Lymph: no bleeding problems, no anemia, no blood clots, no transfusions. Allergy/Immunologic: no swollen lymph nodes/glands, no IV drug abuse. Other: Additional ROS info: Except as noted in the above Review of Systems and in the History of Present Illness, all other systems have been reviewed and are negative or noncontributory. Physical Exam Vitals & Measurements HR: 60(Peripheral) RR: 16 BP: 116/60 HT: 70 in HT: 177.8 cm WT: 115 kg WT: 253 lb BMI: 36.38 HEENT: normal conjunctiva, sclera clear, no scleral icterus, EOM intact, PERRLA, oral mucosa moist without lesions. Neck: trachea midline, no mass, symmetric, no thyromegaly or nodules, no adenopathy Respiratory: lungs CTA, respirations non labored. Cardiovascular: regular rate and rhythm, no murmur, no pedal edema or varicosities. Gastrointestinal: obese, soft, non distended, no tenderness, no masses, no palpable hernias, diastasis recti no, no hepatosplenomegaly; normal bs Lymphatic: no cervical adenopathy, nosupraclavicular adenopathy Musculoskeletal: abnormal gait, digits and nails without infection, nodes, cyanosis, clubbing. Skin: no rashes, no lesions, no ulcers, no subcutaneous nodules, induration. Psychiatric/Neuro: oriented to time, place, person, judgement normal, affect appropriate for age, insight intact, no focal deficits. Tests: labs reviewed, x-rays reviewed, review of old records completed, Discussed surgical options, risks, and possible complications with patient. Assessment/Plan 1. Personal history of colonic polyps (Z86.010: Personal history of colonic polyps) plan surveillance colonoscopy under anesthesia, informed consent obtained. 2. Chronic anticoagulation (Z79.01: detention (current) use of anticoagulants) hold Eliquis 2 days prior to procedure. Follow-up No qualifying data available Problem List/Past Medical History Ongoing Atrial fibrillation BMI 36.0-36.9,adult Cervical disc disease Chronic anticoagulation Coronary arteriosclerosis Heart failure, diastolic History of colon polyps History of prostate cancer HTN (hypertension) Lower extremity edema Morbid obesity Obesity Personal history of colonic polyps Premature beats Historical No qualifying data Procedure/Surgical History Colonoscopy (10/04/2017), Arthroplasty of the hip, Lumbar discectomy. Medications Coreg 25 mg Tab, 12.5 mg= 0.5 tab(s), Oral, BID Eliquis 5 mg oral tablet, 5 mg= 1 tab(s), Oral, BID hydroxychloroquine 200 mg Tab, 200 mg= 1 tab(s), Oral, Daily Lasix 40 mg Tab, 40 mg= 1 tab(s), Oral, BID Lipitor 80 mg Tab, 80 mg= 1 tab(s), Oral, Daily oxybutynin 5 mg Tab, 5 mg= 1 tab(s), Oral, TID, PRN potassium chloride 10 mEq ER Tab, 10 mEq= 1 tab(s), Oral, BID Allergies No Known Allergies No Known Medication Allergies Social History Alcohol - Denies Alcohol Use, 03/28/2023 Substance Abuse - Denies Substance Abuse, 03/28/2023 Tobacco Never (less than 100 in lifetime) Tobacco Use:. Never Smokeless Tobacco Use:., 03/28/2023 Family History Patient was adopted Immunizations Vaccine Date Status SARS-CoV-2 (COVID-19) mRNA BNT-162b2 vax 04/29/2021 Recorded SARS-CoV-2 (COVID-19) mRNA BNT-162b2 vax 04/09/[address] [facility] Comment on above: Result Comment: Elec tronically Signed By: HOWIE LOPEZ, Zhang Jensen\adrien\Date and Time Signed: 03/28/23 20:17 EDT Evaluation + Plan note Note Date & Type Note Facility Evaluation + Plan note No data available for this section [facility] Discharge instructions Note Date & Type Note Facility Hospital Discharge instructions No data available for this section [facility] Progress note Note Date & Type Note Facility Progress note No data available for this section [facility] Summary Purpose Family History No Family History Records FoundNo Family History Records FoundNo Family History Records FoundNo Family History Records Found Advance Directives No Advanced Directives Records FoundNo Advanced Directives Records FoundNo Advanced Directives Records FoundNo Advanced Directives Records Found Additional Source Comments (unrecognized sect ion and content) No Status Records FoundNo Status Records FoundNo Status Records FoundNo Status Records Found INFORMATION SOURCE (unrecogn ized section and content) DATE CREATED AUTHOR 07/07/2020 [facility] DATE CREATED AUTHOR AUTHOR'S ORGANIZ ATION 03/02/2023 [facility] DATE CREATED AUTHOR AUTHOR'S ORGANIZ ATION 06/05/2023 [facility] DATE CREATED AUTHOR AUTHOR'S ORGANIZ ATION 07/23/2023 [facility] Patient Care team informatio n (unrecognized section and content) Personnel Name: Neo Gould MD Address: Address: [address] [place] [address] FOR RECORDS PERTAINING TO PATIENTS WHO ARE OR HAVE BEEN ENROLLED IN A CHEMICAL DEPENDENCY/SUBSTANCEABUSE PROGRAM, SOME INFORMATION MAY BE OMITTED. This clinical summary was aggregated from multiple sources. Caution should be exercised in using it in the provision of clinical care. This summary normalizes information from multiple sources, and as a consequence, information in this document may materially change the coding, format and clinical context of patient data. In addition, data may be omitted in some cases. CLINICAL DECISIONS SHOULD BE BASED ON THE PRIMARY CLINICAL RECORDS. [facility] [facility]. provides no warranty or guarantee [id number] the accuracy [phone] completeness of information in this [id number]
== END 2023-10-03 16:01 | disposition home or self-care (01) ==
LOC: LAB 16:00
PROVIDERS: PCP Family Medicine; Visit Provider Family Medicine
DX: D50.9 Iron deficiency anemia, unspecified (principal); I50.33 Acute on chronic diastolic (congestive) heart failure; R60.9 Edema, unspecified; Z79.01 Long term (current) use of anticoagulants; R53.1 Weakness; I25.10 Atherosclerotic heart disease of native coronary artery without angina pectoris; E87.5 Hyperkalemia
CPT/HCPCS: 81001; 87086

== ENCOUNTER 2023-10-14 13:16 | Outpatient (OUT) | payer MEDICARE, SELFPAY ==
--- OUTSIDE RECORDS SUMMARY | 2023-10-14 13:19 | XMS_ITS | CCD ---
Author Name Unknown Address [address] [place] [address] Organization [facility] Care Team Providers Care Office Automation Clerk Name Role Phone PEBBLES WOODARD Primary Care Unavailable HOY ., DR LARSON Admitting Unavailable HOY ., DR ALRSON Consulting Unavailable HOY ., DR LARSON Attending [...] Attending Unavailable Neo Gould Primary Care Physician [phone] ROSE MCNEILL Attending Unavailable NILLZhnag Attending Unavailable Neo Gould Referring Unavailable NILLZhang Attending Unavailable Neo Gould Referring Unavailable Ghislaine Morales Attending Unavailable NILLZhang Attending Unavailable Neo Gould Referring Unavailable NILLZhang Attending Unavailable NILLZhang Attending Unavailable Allergies Allergy Classification Reported Allergen(s) Allergy Type Date of Onset Reaction(s) Facility (1 source) No Known Medication Allergies; 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: [No Known Medication Allergies] Propensity to adverse reactions (disorder) [facility] Repository Medications Current Medications Medication Drug Class(es) [...] 12-10-2022 Chronic Other aftercare (1 source) Other correction (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 therapy; 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: [OTH [employer] CURRENT DRUG THERAPY] Onset: 12-14-2022 Episodic Other aftercare (2 sources) Long-term current use of anticoagulant; 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: [halfway (current) use of anticoagulants] Onset: 03-28-2023 Episodic [...] Test Name Value Interpretation Reference Range Facility Alf Recordson 07-04 Alf Records [id number] CD:127 Normal [facility] 37on 06-01-2023 37 -Reduce Lisinopril t o 10 mg once a day -Will get an ultrasound of your heart -Continue Lasix 40 mg twice a day -Follow-up with Dr. Ortiz to discuss watchman -Start Eliquis 2.5 mg twice a day and monitor for more bleeding Normal [facility] Office Visiton 06-01-2023 Follow-up visit [id number] Oscar Cox 1945 Date Provider Department Center 06/01/2023 ROSE JEFFERSON ABILIO Parada Family History Family history unknown: Yes Level of Service:59953 [place] OFFICE/OUTPATIENT ESTABLISHED MOD MDM 30-39 MIN Reason for Visit and Comments: Follow-up [182168] - Concerns due to increased swelling bilateral legs and also having blood in urine - Eliquis is being held at the moment Normal [facility] Orders Onlyon 06-01-2023 Orders Only [id number] Oscar Cox 1945 Provider Department Center 06/01/2023 ELVIN CADENA ABILIO Parada Family History Family history unknown: Yes Normal [facility] Reminderson 05-10-2023 Reminders - From: Pennie Bose LPN To: GSN - Clinical; Sent: 05/10/2023 10:13:27 EDT Show up: 03/27/2028 07:00:00 EDT Subject: colonoscopy recall Due Date/Time: 04/26/2028 07:00:00 EDT Reminder/Recall Patient due for surveillance colonoscopy 04/26/2028. Normal [facility] Pathology Noteon 05-03-2023 Pathology Note [id number] 0CD:127 Normal [facility] Outside Colonoscopyon 2022 Outside Colonoscopy [id number] 0CD:127 [facility] Pre-Certification Formon Pre-Certification Form [id number]. 00CD:127 [facility] Consent for Procedure/Surger yon 03-29-2023 Consent for Procedure/Surgery [id number] 0CD:127 [facility] Ambulatory Visit Summaryon 0 03-28-2023 [...] history of colonic polyps Premature beats Normal [facility] Physician Referralon 023 Physician Referral [id number] 0CD:127 Normal [facility] CBC AUTO DIFFon 03-01-2023 BASO # 0.0 103/ul Normal 0.0-0.[address] [facility] Comment on above: Performed By: #### D ATCBC #### [facility] [address] [place] [address] Dr. Power Covarrubias Basophils/100 WBC (Bld) 0.7 % Normal 0.2-2.[address] [facility] Comment on above: Performed By: #### D ATCBC #### [facility] [address] [place] [address] Dr. Power Covarrubias EO # 0.1 103/ul Normal 0.0-0.[address] [facility] Comment on above: Performed By: #### D ATCBC #### [facility] [address] [place] [address] Dr. Power Covarrubias Eosinophils/100 WBC (Bld) 1.8 % Normal 0.9-7.[address] [facility] Comment on above: Performed By: #### D ATCBC #### [facility] [address] [place] [address] Dr. Power Covarrubias Erythrocyte distribution width (RBC) [Ratio] 13.3 % Normal 11.0-15.[address] [facility] Comment on above: Performed By: #### D ATCBC #### [facility] [address] [place] [address] Dr. Power Covarrubias Hematocrit (Bld) [Volume fraction] 40.7 % Critically low 42.0-54.[address] [facility] Comment on above: Performed By: #### D ATCBC #### [facility] [address] [place] [address] Dr. Powre Covarrubias Hemoglobin (Bld) [Mass/Vol] 12.9 g/dL Critically low 14.0-18.[address] [facility] Comment on above: Performed By: #### D ATCBC #### [facility] [address] [place] [address] Dr. Power Covarrubias IG # 0.01 10e3/ul Normal 0.00-0.[address] [facility] Comment on above: Performed By: #### D ATCBC #### [facility] [address] [place] [address] Dr. Power Covarrubias IG % 0.2 % Normal 0.0-0.[address] [facility] Comment on above: Performed By: #### D ATCBC #### [facility] [address] [place] [address] Dr. Power Covarrubias LYMPH # 0.7 103/ul Critically low 1.2-3.8 [facility] Comment on above: Performed By: #### D ATCBC #### [facility] [address] [place] [address] Dr. Power Covarrubias Lymphocytes/100 WBC (Bld) 16.3 % Critically low 20.5-60.0 [facility] Comment on above: Performed By: #### D ATCBC #### [facility] [address] [place] [address] Dr. Power Covarrubias MCH (RBC) [Entitic mass] 29.6 pg Normal 25.9-34.[address] [facility] Comment on above: Performed By: #### D ATCBC #### [facility] [address] [place] [address] Dr. Power Covarrubias MCHC (RBC) [Mass/Vol] 31.7 g/dL Normal 29.9-35.[address] [facility] Comment on above: Performed By: #### D ATCBC #### [facility] [address] [place] [address] Dr. Power Covarrubias MCV (RBC) [Entitic vol] 93.3 fL Normal 80.0-94.0 [facility] Comment on above: Performed By: #### D ATCBC #### [facility] [address] [place] [address] Dr. Power Covarrubias MONO # 0.3 103/ul Normal 0.3-0.[address] [facility] Comment on above: Performed By: #### D ATCBC #### [facility] [address] [place] [address] Dr. Power Covarrubias Monocytes/100 WBC (Bld) 7.5 % Normal 1.7-12.[address] [facility] Comment on above: Performed By: #### D ATCBC #### [facility] [address] [place] [address] Dr. Power Covarrubias NEUT # 3.4 103/ul Normal 1.4-6.[address] [facility] Comment on above: Performed By: #### D ATCBC #### [facility] [address] [place] [address] Dr. Power Covarrubias Neutrophils/100 WBC (Bld) 73.5 % Normal 43.0-75.0 [facility] Comment on above: Performed By: #### D ATCBC #### [facility] [address] [place] [address] Dr. Power Covarrubias Platelet mean volume (Bld) [Entitic vol] 9.9 fL Normal 9.5-13.5 [facility] Comment on above: Performed By: #### D ATCBC #### [facility] [address] [place] [address] Dr. Power Covarrubias PLT 198 103/ul Normal 150-450 [facility] Comment on above: Performed By: #### D ATCBC #### [facility] [address] [place] [address] Dr. Power Covarrubias RBC 4.36 106/ul Critically low 4.70-6.10 [facility] Comment on above: Performed By: #### D ATCBC #### [facility] [address] [place] [address] Dr. Power Covarrubias WBC 4.6 103/ul Normal 4.0-11.[address] [facility] Comment on above: Performed By: #### D ATCBC #### [facility] [address] [address] [address] Power Covarrubias BRE - LIPID PROFILEon 2022 CHOL-HDL RATIO NORM SEE BELOW Normal [facility] Comment on above: Result Comment: 3.3 - 4.4 LOW RISK 4.4 - 7.1 AVERAGE RISK 7.1 - 11.0 MODERATE RISK >11.0 HIGH RISK Performed By: #### D ATLIPI, DATPSA, DATBMP #### [facility] [address] [place] [address] Dr. Power Covarrubias Cholesterol.total/Ch olesterol in HDL [Mass ratio] 2.2 {ratio} Normal [facility] Comment on above: Performed By: #### D ATLIPI, DATPSA, DATBMP #### [facility] [address] [place] [address] Dr. Power Covarrubias BRE- BMP WITH LIPIDon 2022 Anion gap [Moles/Vol] 12.8 mmol/L Normal [facility] Comment on above: Performed By: #### D ATLIPI, DATPSA, DATBMP #### [facility] [address] [place] [address] Dr. Power Covarrubias Calcium [Mass/Vol] 9.3 mg/dL Normal 8.5-10.1 [facility] Comment on above: Performed By: #### D ATLIPI, DATPSA, DATBMP #### [facility] [address] [place] [address] Dr. Power Covarrubias Chloride [Moles/Vol] 107 mmol/L Normal 98-[address] [facility] Comment on above: Performed By: #### D ATLIPI, DATPSA, DATBMP #### [facility] [address] [address] [address] Power Covarrubias Cholesterol [Mass/Vol] 123 mg/dL Normal <=200 [facility] Comment on above: Performed By: #### D ATLIPI, DATPSA, DATBMP #### [facility] [address] [place] [address] Dr. Power Covarrubias Cholesterol in HDL [Mass/Vol] 56 mg/dL Normal 40-60 [facility] Comment on above: Performed By: #### D ATLIPI, DATPSA, DATBMP #### [facility] [address] [place] [address] Dr. Power Covarrubias Cholesterol in LDL [Mass/Vol] 52.0 mg/dL Normal [facility] Comment on above: Performed By: #### D ATLIPI, DATPSA, DATBMP #### [facility] [address] [place] [address] Dr. Power Covarrubias CO2 [Moles/Vol] 28.7 mmol/L Normal 21.0-32.0 [facility] Comment on above: Performed By: #### D ATLIPI, DATPSA, DATBMP #### [facility] [address] [place] [address] Dr. Power Covarrubias Creatinine [Mass/Vol] 0.93 mg/dL Normal 0.70-1.30 [facility] Comment on above: Performed By: #### D ATLIPI, DATPSA, DATBMP #### [facility] [address] [place] [address] Dr. Power Covarrubias EGFR-AF TAIWANESE >60 Normal >=60 [facility] Comment on above: Performed By: #### D ATLIPI, DATPSA, DATBMP #### [facility] [address] [place] [address] Dr. Power Covarrubias EGFR-NON AF TAIWANESE >60 Normal >=60 [facility] Comment on above: Performed By: #### D ATLIPI, DATPSA, DATBMP #### [facility] [address] [place] [address] Dr. Power Covarrubias Glucose [Mass/Vol] 97 mg/dL Normal 74-106 [facility] Comment on above: Performed By: #### D ATLIPI DATPSA, DATBMP #### [facility] [address] [address] [address] Power Covarrubias HDL NORMAL > or = 60 mg/dl - LO W CARDIOVASCULAR RISK <40 mg/dl - HIGH CARDIOVASCULAR RISK Normal [facility] Comment on above: Performed By: #### D ATLIPI DATPSA, DATBMP #### [facility] [address] [address] [address] Power Covarrubias LDL CALC NORMAL SEE BELOW Normal [facility] Comment on above: Result Comment: <100 mg/dl OPTIMAL 100 - 129 mg/dl NEAR OR ABOVE OPTIMAL 130 - 159 mg/dl BORDERLINE HIGH 160 - 189 mg/dl HIGH >190 mg/dl VERY HIGH Performed By: #### D ATLPAOLAI DATPSA, DATBMP #### [facility] [address] [address] [address] Power Covarrubias Potassium [Moles/Vol] 3.5 mmol/L Normal 3.5-5.[address] [facility] Comment on above: Performed By: #### D ATLIPI DATPSA, DATBMP #### [facility] [address] [address] [address] Power Covarrubias Sodium [Moles/Vol] 145 mmol/L Normal 136-145 [facility] Comment on above: Performed By: #### D ATLIPI DATPSA, DATBMP #### [facility] [address] [address] [address] Power Covarrubias Triglyceride [Mass/Vol] 75 mg/dL Normal <=150 [facility] Comment on above: Performed By: #### D ATLIPI DATPSA, DATBMP #### [facility] [address] [address] [address] Power Covarrubias Urea nitrogen [Mass/Vol] 11.0 mg/dL Normal 7.0-18.[address] [facility] Comment on above: Performed By: #### D DELANEY DATPSA, DATBMP #### [facility] [address] [address] [address] Power Covarrubias Urea nitrogen/Creatinine [Mass ratio] 11.8 mg/mg Normal [facility] Comment on above: Performed By: #### D ATLIPI, DATPSA, DATBMP #### [facility] [address] [address] [address] Power Covarrubias VLDL CALC 15.0 mg/dL Normal [facility] Comment on above: Performed By: #### D ATLIPI, DATPSA, DATBMP #### [facility] [address] [address] [address] Power Covarrubias GLYCOHEMOGLOBIN A1Con 2022 ADA RECOMMENDATION SEE BELOW Normal [facility] Comment on above: Result Comment: ADA RECOMMENDED LIMIT 4.0 - 6.0 ADA THERAPEUTIC TARGET < 7.0 ACTION SUGGESTED > 7.0 Performed By: #### D ATLIPI, DATPSA, DATBMP #### [facility] [address] [address] [address] Power Covarrubias Glucose [Mass/Vol] 105 mg/dL Normal [facility] Comment on above: Performed By: #### D ATLIPI, DATPSA, DATBMP #### [facility] [address] [place] [address] Dr. Power Covarrubias HbA1c (Bld) [Mass fraction] 5.3 % Normal 4.5-6.2 [facility] Comment on above: Performed By: #### D ATLIPI, DATPSA, DATBMP #### [facility] [address] [address] [address] Power Covarrubias CBC AUTO DIFFon 12-10-2022 BASO # 0.0 103/ul Normal 0.0-0.[address] [facility] Comment on above: Performed By: #### D ATLIPI, DATPSA, DATBMP #### [facility] [address] [place] [address] Dr. Power Covarrubias Basophils/100 WBC (Bld) 0.4 % Normal 0.2-2.0 [facility] Comment on above: Performed By: #### D ATLIPI, DATPSA, DATBMP #### [facility] [address] [place] [address] Dr. Power Covarrubias EO # 0.2 103/ul Normal 0.0-0.[address] [facility] Comment on above: Performed By: #### D ATLIPI, DATPSA, DATBMP #### [facility] [address] [place] [address] Dr. Power Covarrubias Eosinophils/100 WBC (Bld) 3.6 % Normal 0.9-7.0 [facility] Comment on above: Performed By: #### D ATLIPI, DATPSA, DATBMP #### [facility] [address] [place] [address] Dr. Power Covarrubias Erythrocyte distribution width (RBC) [Ratio] 13.5 % Normal 11.0-15.[address] [facility] Comment on above: Performed By: #### D ATLIPI, DATPSA, DATBMP #### [facility] [address] [place] [address] Dr. Power Covarrubias Hematocrit (Bld) [Volume fraction] 37.5 % Critically low 42.0-54.[address] [facility] Comment on above: Performed By: #### D ATLIPI, DATPSA, DATBMP #### [facility] [address] [place] [address] Dr. Power Covarrubias Hemoglobin (Bld) [Mass/Vol] 12.0 g/dL Critically low 14.0-18.0 [facility] Comment on above: Performed By: #### D ATLIPI, DATPSA, DATBMP #### [facility] [address] [place] [address] Dr. Power Covarrubias IG # 0.02 10e3/ul Normal 0.00-0.[address] [facility] Comment on above: Performed By: #### D ATLIPI, DATPSA, DATBMP #### [facility] [address] [place] [address] Dr. Power Covarrubias IG % 0.4 % Normal 0.0-0.[address] [facility] Comment on above: Performed By: #### D ATLIPI, DATPSA, DATBMP #### [facility] [address] [place] [address] Dr. Power Covarrubias LYMPH # 0.9 103/ul Critically low 1.2-3.8 [facility] Comment on above: Performed By: #### D ATLIPI, DATPSA, DATBMP #### [facility] [address] [place] [address] Dr. Power Covarrubias Lymphocytes/100 WBC (Bld) 17.7 % Critically low 20.5-60.[address] [facility] Comment on above: Performed By: #### D ATLIPI, DATPSA, DATBMP #### [facility] [address] [place] [address] Dr. Power Covarrubias MANUAL DIFF REQ NO Normal [facility] Comment on above: Performed By: #### D ATLIPI, DATPSA, DATBMP #### [facility] [address] [place] [address] Dr. Power Covarrubias MCH (RBC) [Entitic mass] 29.7 pg Normal 25.9-34.[address] [facility] Comment on above: Performed By: #### D ATLIPI, DATPSA, DATBMP #### [facility] [address] [place] [address] Dr. Power Covarrubias MCHC (RBC) [Mass/Vol] 32.0 g/dL Normal 29.9-35.2 [facility] Comment on above: Performed By: #### D ATLIPI, DATPSA, DATBMP #### [facility] [address] [place] [address] Dr. Power Covarrubias MCV (RBC) [Entitic vol] 92.8 fL Normal 80.0-94.[address] [facility] Comment on above: Performed By: #### D ATLIPI, DATPSA, DATBMP #### [facility] [address] [place] [address] Dr. Power Covarrubias MONO # 0.6 103/ul Normal 0.3-0.8 [facility] Comment on above: Performed By: #### D ATLIPI, DATPSA, DATBMP #### [facility] [address] [address] [address] Power Covarrubias Monocytes/100 WBC (Bld) 11.1 % Normal 1.7-12.0 [facility] Comment on above: Performed By: #### D ATLIPI, DATPSA, DATBMP #### [facility] [address] [address] [address] Power Covarrubias NEUT # 3.6 103/ul Normal 1.4-6.5 [facility] Comment on above: Performed By: #### D ATLIPI, DATPSA, DATBMP #### [facility] [address] [place] [address] Dr. Power Covarrubias Neutrophils/100 WBC (Bld) 66.8 % Normal 43.0-75.0 [facility] Comment on above: Performed By: #### D ATLIPI, DATPSA, DATBMP #### [facility] [address] [place] [address] Dr. Power Covarrubias Platelet mean volume (Bld) [Entitic vol] 9.8 fL Normal 9.5-13.5 [facility] Comment on above: Performed By: #### D ATLIPI, DATPSA, DATBMP #### [facility] [address] [place] [address] Dr. Power Covarrubias PLT 199 103/ul Normal 150-450 [facility] Comment on above: Performed By: #### D ATLIPI, DATPSA, DATBMP #### [facility] [address] [place] [address] Dr. Power Covarrubias RBC 4.04 106/ul Critically low 4.70-6.10 [facility] Comment on above: Performed By: #### D ATLIPI, DATPSA, DATBMP #### [facility] [address] [place] [address] Dr. Power Covarrubias WBC 5.3 103/ul Normal 4.0-11.0 [facility] Comment on above: Performed By: #### D ATLIPI, DATPSA, DATBMP #### [facility] [address] [place] [address] Dr. Power Covarrubias PROF 14(COMP METB)on 023 Albumin [Mass/Vol] 3.3 g/dL Critically low 3.4-5.0 [facility] Comment on above: Performed By: #### C MP #### [facility] [address] [place] [address] Dr. Power Covarrubias Albumin/Globulin [Mass ratio] 0.9 {ratio} Normal [facility] Comment on above: Performed By: #### C MP #### [facility] [address] [place] [address] Dr. Power Covarrubias ALP [Catalytic activity/Vol] 99 U/L Normal 46-[address] [facility] Comment on above: Performed By: #### C MP #### [facility] [address] [place] [address] Dr. Power Covarrubias ALT [Catalytic activity/Vol] 17 U/L Normal 16-63 [facility] Comment on above: Performed By: #### C MP #### [facility] [address] [place] [address] Dr. Power Covarrubias Anion gap [Moles/Vol] 11.6 mmol/L Normal [facility] Comment on above: Performed By: #### C MP #### [facility] [address] [place] [address] Dr. Power Covarrubias AST [Catalytic activity/Vol] 15 U/L Normal 15-37 [facility] Comment on above: Performed By: #### C MP #### [facility] [address] [place] [address] Dr. Power Covarrubias Bilirubin [Mass/Vol] 0.6 mg/dL Normal 0.2-1.0 [facility] Comment on above: Performed By: #### C MP #### [facility] [address] [place] [address] Dr. Power Covarrubias Calcium [Mass/Vol] 9.4 mg/dL Normal 8.5-10.1 [facility] Comment on above: Performed By: #### C MP #### [facility] [address] [address] [address] Power Covarrubias Chloride [Moles/Vol] 107 mmol/L Normal 98-[address] [facility] Comment on above: Performed By: #### C MP #### [facility] [address] [address] [address] Power Covarrubias CO2 [Moles/Vol] 29.2 mmol/L Normal 21.0-32.0 [facility] Comment on above: Performed By: #### C MP #### [facility] [address] [place] [address] Dr. Power Covarrubias Creatinine [Mass/Vol] 0.87 mg/dL Normal 0.70-1.[address] [facility] Comment on above: Performed By: #### C MP #### [facility] [address] [place] [address] Dr. Power Covarrubias EGFR-AF TAIWANESE >60 Normal >=60 [facility] Comment on above: Performed By: #### C MP #### [facility] [address] [place] [address] Dr. Power Covarrubias EGFR-NON AF TAIWANESE >60 Normal >=[address] [facility] Comment on above: Performed By: #### C MP #### [facility] [address] [place] [address] Dr. Power Covarrubias Globulin (S) [Mass/Vol] 3.6 g/dL Normal [facility] Comment on above: Performed By: #### C MP #### [facility] [address] [place] [address] Dr. Power Covarrubias Glucose [Mass/Vol] 107 mg/dL Critically high 74-106 [facility] Comment on above: Performed By: #### C MP #### [facility] [address] [place] [address] Dr. Power Covarrubias Potassium [Moles/Vol] 3.8 mmol/L Normal 3.5-5.[address] [facility] Comment on above: Performed By: #### C MP #### [facility] [address] [address] [address] Power Covarrubias Protein [Mass/Vol] 6.9 g/dL Normal 6.4-8.2 [facility] Comment on above: Performed By: #### C MP #### [facility] [address] [address] [address] Power Covarrubias Sodium [Moles/Vol] 144 mmol/L Normal 136-145 [facility] Comment on above: Performed By: #### C MP #### [facility] [address] [place] [address] Dr. Power Covarrubias Urea nitrogen [Mass/Vol] 12.0 mg/dL Normal 7.0-18.[address] [facility] Comment on above: Performed By: #### C MP #### [facility] [address] [place] [address] Dr. Power Covarrubias Urea nitrogen/Creatinine [Mass ratio] 13.8 mg/mg Normal [facility] Comment on above: Performed By: #### C MP #### [facility] [address] [place] [address] Dr. Power Covarrubias CBC AUTO DIFFon 08-31-2022 BASO # 0.0 103/ul Normal 0.0-0.[address] [facility] Comment on above: Performed By: #### D ATLIPI, DATPSA, DATBMP #### [facility] [address] [place] [address] Dr. Power Covarrubias Basophils/100 WBC (Bld) 0.7 % Normal 0.2-2.[address] [facility] Comment on above: Performed By: #### D ATLIPI, DATPSA, DATBMP #### [facility] [address] [place] [address] Dr. Power Covarrubias EO # 0.2 103/ul Normal 0.0-0.[address] [facility] Comment on above: Performed By: #### D ATLIPI, DATPSA, DATBMP #### [facility] [address] [place] [address] Dr. Power Covarrubias Eosinophils/100 WBC (Bld) 3.5 % Normal 0.9-7.[address] [facility] Comment on above: Performed By: #### D ATLIPI, DATPSA, DATBMP #### [facility] [address] [place] [address] Dr. Power Covarrubias Erythrocyte distribution width (RBC) [Ratio] 13.2 % Normal 11.0-15.[address] [facility] Comment on above: Performed By: #### D ATLIPI, DATPSA, DATBMP #### [facility] [address] [place] [address] Dr. Power Covarrubias Hematocrit (Bld) [Volume fraction] 39.3 % Critically low 42.0-54.[address] [facility] Comment on above: Performed By: #### D ATLIPI, DATPSA, DATBMP #### [facility] [address] [place] [address] Dr. Power Covarrubias Hemoglobin (Bld) [Mass/Vol] 12.9 g/dL Critically low 14.0-18.[address] [facility] Comment on above: Performed By: #### D ATLIPI, DATPSA, DATBMP #### [facility] [address] [place] [address] Dr. Power Covarrubias IG # 0.02 10e3/ul Normal 0.00-0.[address] [facility] Comment on above: Performed By: #### D ATLIPI, DATPSA, DATBMP #### [facility] [address] [place] [address] Dr. Power Covarrubias IG % 0.4 % Normal 0.0-0.5 [facility] Comment on above: Performed By: #### D ATLIPI, DATPSA, DATBMP #### [facility] [address] [place] [address] Dr. Power Covarrubias LYMPH # 0.9 103/ul Critically low 1.2-3.8 [facility] Comment on above: Performed By: #### D ATLIPI, DATPSA, DATBMP #### [facility] [address] [place] [address] Dr. Power Covarrubias Lymphocytes/100 WBC (Bld) 16.4 % Critically low 20.5-60.[address] [facility] Comment on above: Performed By: #### D ATLIPI, DATPSA, DATBMP #### [facility] [address] [place] [address] Dr. Power Covarrubias MCH (RBC) [Entitic mass] 30.7 pg Normal 25.9-34.0 [facility] Comment on above: Performed By: #### D ATLIPI, DATPSA, DATBMP #### [facility] [address] [place] [address] Dr. Power Covarrubias MCHC (RBC) [Mass/Vol] 32.8 g/dL Normal 29.9-35.2 [facility] Comment on above: Performed By: #### D ATLIPI, DATPSA, DATBMP #### [facility] [address] [place] [address] Dr. Power Covarrubias MCV (RBC) [Entitic vol] 93.6 fL Normal 80.0-94.[address] [facility] Comment on above: Performed By: #### D ATLIPI, DATPSA, DATBMP #### [facility] [address] [place] [address] Dr. Power Covarrubias MONO # 0.5 103/ul Normal 0.3-0.8 [facility] Comment on above: Performed By: #### D ATLIPI, DATPSA, DATBMP #### [facility] [address] [place] [address] Dr. Power Covarrubias Monocytes/100 WBC (Bld) 9.0 % Normal 1.7-12.0 [facility] Comment on above: Performed By: #### D ATLIPI, DATPSA, DATBMP #### [facility] [address] [place] [address] Dr. Power Covarrubias NEUT # 3.8 103/ul Normal 1.4-6.[address] [facility] Comment on above: Performed By: #### D ATLIPI, DATPSA, DATBMP #### [facility] [address] [place] [address] Dr. Power Covarrubias Neutrophils/100 WBC (Bld) 70.0 % Normal 43.0-75.[address] [facility] Comment on above: Performed By: #### D ATLIPI, DATPSA, DATBMP #### [facility] [address] [place] [address] Dr. Power Covarrubias Platelet mean volume (Bld) [Entitic vol] 9.9 fL Normal 9.5-13.5 [facility] Comment on above: Performed By: #### D ATLIPI, DATPSA, DATBMP #### [facility] [address] [place] [address] Dr. Power Covarrubias PLT 195 103/ul Normal 150-450 [facility] Comment on above: Performed By: #### D ATLIPI, DATPSA, DATBMP #### [facility] [address] [place] [address] Dr. Power Covarrubias RBC 4.20 106/ul Critically low 4.70-6.10 [facility] Comment on above: Performed By: #### D ATLIPI, DATPSA, DATBMP #### [facility] [address] [place] [address] Dr. Power Covarrubias WBC 5.4 103/ul Normal 4.0-11.[address] [facility] Comment on above: Performed By: #### D ATLIPI, DATPSA, DATBMP #### [facility] [address] [place] [address] Dr. Power Covarrubias BRE- BMP WITH LIPIDon 2021 Anion gap [Moles/Vol] 10.8 mmol/L Normal [facility] Comment on above: Performed By: #### D ATLIPI, DATPSA, DATBMP #### [facility] [address] [place] [address] Dr. Power Covarrubias Calcium [Mass/Vol] 9.3 mg/dL Normal 8.5-10.1 [facility] Comment on above: Performed By: #### D ATLIPI, DATPSA, DATBMP #### [facility] [address] [place] [address] Dr. Power Covarrubias Chloride [Moles/Vol] 105 mmol/L Normal 98-107 [facility] Comment on above: Performed By: #### D ATLIPI, DATPSA, DATBMP #### [facility] [address] [address] [address] Power Covarrubias Cholesterol [Mass/Vol] 123 mg/dL Normal <=200 [facility] Comment on above: Performed By: #### D ATLIPI, DATPSA, DATBMP #### [facility] [address] [address] [address] Power Covarrubias Cholesterol in HDL [Mass/Vol] 51 mg/dL Normal 40-60 [facility] Comment on above: Performed By: #### D ATLIPI, DATPSA, DATBMP #### [facility] [address] [address] [address] Power Covarrubias Cholesterol in LDL [Mass/Vol] 56.0 mg/dL Normal [facility] Comment on above: Performed By: #### D ATLIPI, DATPSA, DATBMP #### [facility] [address] [address] [address] Power Covarrubias CO2 [Moles/Vol] 28.2 mmol/L Normal 21.0-32.0 [facility] Comment on above: Performed By: #### D ATLIPI, DATPSA, DATBMP #### [facility] [address] [address] [address] Power Covarrubias Creatinine [Mass/Vol] 0.86 mg/dL Normal 0.70-1.30 [facility] Comment on above: Performed By: #### D ATLIPI, DATPSA, DATBMP #### [facility] [address] [address] [address] Power Covarrubias EGFR-AF TAIWANESE >60 Normal >=60 [facility] Comment on above: Performed By: #### D ATLIPI, DATPSA, DATBMP #### [facility] [address] [address] [address] Power Covarrubias EGFR-NON AF TAIWANESE >60 Normal >=60 [facility] Comment on above: Performed By: #### D ATLIPI, DATPSA, DATBMP #### [facility] [address] [address] [address] Power Covarrubias Glucose [Mass/Vol] 90 mg/dL Normal 74-106 [facility] Comment on above: Performed By: #### D ATLIPI, DATPSA, DATBMP #### [facility] [address] [address] [address] Power Covarrubias HDL NORMAL > or = 60 mg/dl - LO W CARDIOVASCULAR RISK <40 mg/dl - HIGH CARDIOVASCULAR RISK Normal [facility] Comment on above: Performed By: #### D ATLIPI, DATPSA, DATBMP #### [facility] [address] [place] [address] Dr. Power Covarrubias LDL CALC NORMAL SEE BELOW Normal [facility] Comment on above: Result Comment: <100 mg/dl OPTIMAL 100 - 129 mg/dl NEAR OR ABOVE OPTIMAL 130 - 159 mg/dl BORDERLINE HIGH 160 - 189 mg/dl HIGH >190 mg/dl VERY HIGH Performed By: #### D ATLIPI, DATPSA, DATBMP #### [facility] [address] [place] [address] Dr. Power Covarrubias Potassium [Moles/Vol] 4.0 mmol/L Normal 3.5-5.[address] [facility] Comment on above: Performed By: #### D ATLIPI, DATPSA, DATBMP #### [facility] [address] [address] [address] Power Covarrubias Sodium [Moles/Vol] 140 mmol/L Normal 136-145 [facility] Comment on above: Performed By: #### D ATLIPI, DATPSA, DATBMP #### [facility] [address] [address] [address] Power Covarrubias Triglyceride [Mass/Vol] 80 mg/dL Normal <=150 [facility] Comment on above: Performed By: #### D ATLIPI, DATPSA, DATBMP #### [facility] [address] [address] [address] Power Covarrubias Urea nitrogen [Mass/Vol] 14.0 mg/dL Normal 7.0-18.[address] [facility] Comment on above: Performed By: #### D ATLIPI, DATPSA, DATBMP #### [facility] [address] [place] [address] Dr. Power Covarrubias Urea nitrogen/Creatinine [Mass ratio] 16.3 mg/mg Normal [facility] Comment on above: Performed By: #### D ATLIPI, DATPSA, DATBMP #### [facility] [address] [place] [address] Dr. Power Covarrubias VLDL CALC 16.0 mg/dL Normal [facility] Comment on above: Performed By: #### D ATLIPI, DATPSA, DATBMP #### [facility] [address] [place] [address] Dr. Power Covarrubias OCC BLD IMMUNO SCREENon OCCULT BLOOD Negative Normal NEGATIVE [facility] Comment on above: Performed By: #### O BSCRN #### [facility] [address] [place] [address] Dr. Power Covarrubias T4 [facility] 06-30-2022 T4 [Mass/Vol] 9.2 ug/dL Normal 4.5-12.0 [facility] Comment on above: Performed By: #### D ATLIPI, DATPSA, DATBMP #### [facility] [address] [place] [address] Dr. Power Covarrubias CBC AUTO DIFFon 06-29-2022 BASO # 0.0 103/ul Normal 0.0-0.[address] [facility] Comment on above: Performed By: #### D ATLIPI, DATPSA, DATBMP #### [facility] [address] [place] [address] Dr. Power Covarrubias Basophils/100 WBC (Bld) 0.5 % Normal 0.2-2.[address] [facility] Comment on above: Performed By: #### D ATLIPI, DATPSA, DATBMP #### [facility] [address] [place] [address] Dr. Power Covarrubias EO # 0.1 103/ul Normal 0.0-0.7 [facility] Comment on above: Performed By: #### D ATLIPI, DATPSA, DATBMP #### [facility] [address] [place] [address] Dr. Power Covarrubias Eosinophils/100 WBC (Bld) 2.5 % Normal 0.9-7.0 [facility] Comment on above: Performed By: #### D ATLIPI, DATPSA, DATBMP #### [facility] [address] [place] [address] Dr. Power Covarrubias Erythrocyte distribution width (RBC) [Ratio] 13.4 % Normal 11.0-15.[address] [facility] Comment on above: Performed By: #### D ATLIPI, DATPSA, DATBMP #### [facility] [address] [place] [address] Dr. Power Covarrubias Hematocrit (Bld) [Volume fraction] 38.1 % Critically low 42.0-54.[address] [facility] Comment on above: Performed By: #### D ATLIPI, DATPSA, DATBMP #### [facility] [address] [place] [address] Dr. Power Covarrubias Hemoglobin (Bld) [Mass/Vol] 12.0 g/dL Critically low 14.0-18.[address] [facility] Comment on above: Performed By: #### D ATLIPI, DATPSA, DATBMP #### [facility] [address] [place] [address] Dr. Power Covarrubias IG # 0.01 10e3/ul Normal 0.00-0.[address] [facility] Comment on above: Performed By: #### D ATLIPI, DATPSA, DATBMP #### [facility] [address] [place] [address] Dr. Power Covarrubias IG % 0.2 % Normal 0.0-0.[address] [facility] Comment on above: Performed By: #### D ATLIPI, DATPSA, DATBMP #### [facility] [address] [address] [address] Power Covarrubias LYMPH # 0.9 103/ul Critically low 1.2-3.8 [facility] Comment on above: Performed By: #### D ATLIPI, DATPSA, DATBMP #### [facility] [address] [address] [address] Power Covarrubias Lymphocytes/100 WBC (Bld) 15.5 % Critically low 20.5-60.[address] [facility] Comment on above: Performed By: #### D ATLIPI, DATPSA, DATBMP #### [facility] [address] [address] [address] Power Covarrubias MANUAL DIFF REQ NO Normal [facility] Comment on above: Performed By: #### D ATLIPI, DATPSA, DATBMP #### [facility] [address] [place] [address] Dr. Power Covarrubias MCH (RBC) [Entitic mass] 30.2 pg Normal 25.9-34.[address] [facility] Comment on above: Performed By: #### D ATLIPI, DATPSA, DATBMP #### [facility] [address] [place] [address] Dr. Power Covarrubias MCHC (RBC) [Mass/Vol] 31.5 g/dL Normal 29.9-35.[address] [facility] Comment on above: Performed By: #### D ATLIPI, DATPSA, DATBMP #### [facility] [address] [address] [address] Power Covarrubias MCV (RBC) [Entitic vol] 96.0 fL Critically high 80.0-94.[address] [facility] Comment on above: Performed By: #### D ATLIPI, DATPSA, DATBMP #### [facility] [address] [place] [address] Dr. Power Covarrubias MONO # 0.5 103/ul Normal 0.3-0.[address] [facility] Comment on above: Performed By: #### D ATLIPI, DATPSA, DATBMP #### [facility] [address] [place] [address] Dr. Power Covarrubias Monocytes/100 WBC (Bld) 9.5 % Normal 1.7-12.0 [facility] Comment on above: Performed By: #### D ATLIPI, DATPSA, DATBMP #### [facility] [address] [place] [address] Dr. Power Covarrubias NEUT # 4.1 103/ul Normal 1.4-6.5 [facility] Comment on above: Performed By: #### D ATLIPI, DATPSA, DATBMP #### [facility] [address] [place] [address] Dr. Power Covarrubias Neutrophils/100 WBC (Bld) 71.8 % Normal 43.0-75.0 [facility] Comment on above: Performed By: #### D ATLIPI, DATPSA, DATBMP #### [facility] [address] [place] [address] Dr. Power Covarrubias Platelet mean volume (Bld) [Entitic vol] 9.8 fL Normal 9.5-13.5 [facility] Comment on above: Performed By: #### D ATLIPI, DATPSA, DATBMP #### [facility] [address] [place] [address] Dr. Power Covarrubias PLT 212 103/ul Normal 150-450 [facility] Comment on above: Performed By: #### D ATLIPI, DATPSA, DATBMP #### [facility] [address] [place] [address] Dr. Power Covarrubias RBC 3.97 106/ul Critically low 4.70-6.10 [facility] Comment on above: Performed By: #### D ATLIPI, DATPSA, DATBMP #### [facility] [address] [place] [address] Dr. Power Covarrubias WBC 5.7 103/ul Normal 4.0-11.0 [facility] Comment on above: Performed By: #### D ATLIPI, DATPSA, DATBMP #### [facility] [address] [address] [address] Power Covarrubias FREE T3on 06-29-2022 FREE T3 2.73 pg/mlL Normal 2.18-3.[address] [facility] Comment on above: Performed By: #### D ATLIPI, DATPSA, DATBMP #### [facility] [address] [address] [address] Power Covarrubias GLYCOHEMOGLOBIN A1Con 2021 ADA RECOMMENDATION SEE BELOW Normal [facility] Comment on above: Result Comment: ADA RECOMMENDED LIMIT 4.0 - 6.0 ADA THERAPEUTIC TARGET < 7.0 ACTION SUGGESTED > 7.0 Performed By: #### A 1C #### [facility] [address] [place] [address] Dr. Power Covarrubias Glucose [Mass/Vol] 114 mg/dL Normal [facility] Comment on above: Performed By: #### A 1C #### [facility] [address] [place] [address] Dr. Power Covarrubias HbA1c (Bld) [Mass fraction] 5.6 % Normal 4.5-6.[address] [facility] Comment on above: Performed By: #### A 1C #### [facility] [address] [place] [address] Dr. Power Covarrubias LIPID PROFILEon 06-29-2022 CHOL-HDL RATIO NORM SEE BELOW Normal [facility] Comment on above: Result Comment: 3.3 - 4.4 LOW RISK 4.4 - 7.1 AVERAGE RISK 7.1 - 11.0 MODERATE RISK >11.0 HIGH RISK Performed By: #### D ATLMACK, DATPSA, DATBMP #### [facility] [address] [place] [address] Dr. Power Covarrubias Cholesterol [Mass/Vol] 110 mg/dL Normal <=[address] [facility] Comment on above: Performed By: #### D ATLIPEmeterio DATPSA, DATBMP #### [facility] [address] [place] [address] Dr. Power Covarrubias Cholesterol in HDL [Mass/Vol] 47 mg/dL Normal 40-[address] [facility] Comment on above: Performed By: #### D ATLIPI, DATPSA, DATBMP #### [facility] [address] [address] [address] Power Covarrubias Cholesterol in LDL [Mass/Vol] 51.2 mg/dL Normal [facility] Comment on above: Performed By: #### D ATLIPI, DATPSA, DATBMP #### [facility] [address] [address] [address] Power Covarrubias Cholesterol.total/Ch olesterol in HDL [Mass ratio] 2.3 {ratio} Normal [facility] Comment on above: Performed By: #### D ATLIPI, DATPSA, DATBMP #### [facility] [address] [address] [address] Power Covarrubias HDL NORMAL > or = 60 mg/dl - LO W CARDIOVASCULAR RISK <40 mg/dl - HIGH CARDIOVASCULAR RISK Normal [facility] Comment on above: Performed By: #### D ATLIPI, DATPSA, DATBMP #### [facility] [address] [address] [address] Power Covarrubias LDL CALC NORMAL SEE BELOW Normal [facility] Comment on above: Result Comment: <100 mg/dl OPTIMAL 100 - 129 mg/dl NEAR OR ABOVE OPTIMAL 130 - 159 mg/dl BORDERLINE HIGH 160 - 189 mg/dl HIGH >190 mg/dl VERY HIGH Performed By: #### D ATLIPI, DATPSA, DATBMP #### [facility] [address] [address] [address] Power Covarrubias Triglyceride [Mass/Vol] 59 mg/dL Normal <=150 [facility] Comment on above: Performed By: #### D ATLIPI, DATPSA, DATBMP #### [facility] [address] [address] [address] Power Covarrubias VLDL CALC 11.8 mg/dL Normal [facility] Comment on above: Performed By: #### D ATLIPI, DATPSA, DATBMP #### [facility] [address] [address] [address] Power Covarrubias PROF 14(COMP METB)on 022 Albumin [Mass/Vol] 3.3 g/dL Critically low 3.4-5.0 [facility] Comment on above: Performed By: #### D ATLIPI, DATPSA, DATBMP #### [facility] [address] [address] [address] Power Covarrubias Albumin/Globulin [Mass ratio] 0.9 {ratio} Normal [facility] Comment on above: Performed By: #### D ATLIPI, DATPSA, DATBMP #### [facility] [address] [address] [address] Power oCvarrubias ALP [Catalytic activity/Vol] 100 U/L Normal 46-[address] [facility] Comment on above: Performed By: #### D ATLIPI, DATPSA, DATBMP #### [facility] [address] [place] [address] Dr. Power Covarrubias ALT [Catalytic activity/Vol] 16 U/L Normal 16-[address] [facility] Comment on above: Performed By: #### D ATLIPI, DATPSA, DATBMP #### [facility] [address] [address] [address] Power Covarrubias Anion gap [Moles/Vol] 11.4 mmol/L Normal [facility] Comment on above: Performed By: #### D ATLIPI, DATPSA, DATBMP #### [facility] [address] [address] [address] Power Covarrubias AST [Catalytic activity/Vol] 14 U/L Critically low 15-[address] [facility] Comment on above: Performed By: #### D ATLIPI, DATPSA, DATBMP #### [facility] [address] [address] [address] Power Covarrubias Bilirubin [Mass/Vol] 0.7 mg/dL Normal 0.2-1.[address] [facility] Comment on above: Performed By: #### D ATLIPI, DATPSA, DATBMP #### [facility] [address] [address] [address] Power Covarrubias Calcium [Mass/Vol] 9.0 mg/dL Normal 8.5-10.1 [facility] Comment on above: Performed By: #### D ATLIPI, DATPSA, DATBMP #### [facility] [address] [address] [address] Power Covarrubias Chloride [Moles/Vol] 107 mmol/L Normal 98-107 [facility] Comment on above: Performed By: #### D ATLIPI, DATPSA, DATBMP #### [facility] [address] [address] [address] Power Covarrubias CO2 [Moles/Vol] 28.5 mmol/L Normal 21.0-32.0 [facility] Comment on above: Performed By: #### D ATLIPI, DATPSA, DATBMP #### [facility] [address] [place] [address] Dr. Power Covarrubias Creatinine [Mass/Vol] 0.87 mg/dL Normal 0.70-1.30 [facility] Comment on above: Performed By: #### D ATLIPI, DATPSA, DATBMP #### [facility] [address] [place] [address] Dr. Power Covarrubias EGFR-AF TAIWANESE >60 Normal >=60 [facility] Comment on above: Performed By: #### D ATLIPI, DATPSA, DATBMP #### [facility] [address] [place] [address] Dr. Power Covarrubias EGFR-NON AF TAIWANESE >60 Normal >=60 [facility] Comment on above: Performed By: #### D ATLIPI, DATPSA, DATBMP #### [facility] [address] [place] [address] Dr. Power Covarrubias Globulin (S) [Mass/Vol] 3.6 g/dL Normal [facility] Comment on above: Performed By: #### D ATLIPI, DATPSA, DATBMP #### [facility] [address] [place] [address] Dr. Power Covarrubias Glucose [Mass/Vol] 90 mg/dL Normal 74-106 [facility] Comment on above: Performed By: #### D ATLIPI, DATPSA, DATBMP #### [facility] [address] [place] [address] Dr. Power Covarrubias Potassium [Moles/Vol] 3.9 mmol/L Normal 3.5-5.[address] [facility] Comment on above: Performed By: #### D ATLIPI, DATPSA, DATBMP #### [facility] [address] [place] [address] Dr. Power Covarrubias Protein [Mass/Vol] 6.9 g/dL Normal 6.4-8.2 [facility] Comment on above: Performed By: #### D ATLIPI, DATPSA, DATBMP #### [facility] [address] [place] [address] Dr. Power Covarrubias Sodium [Moles/Vol] 143 mmol/L Normal 136-145 [facility] Comment on above: Performed By: #### D ATLIPI, DATPSA, DATBMP #### [facility] [address] [place] [address] Dr. Power Covarrubias Urea nitrogen [Mass/Vol] 13.0 mg/dL Normal 7.0-18.[address] [facility] Comment on above: Performed By: #### D ATLIPI, DATPSA, DATBMP #### [facility] [address] [place] [address] Dr. Power Covarrubias Urea nitrogen/Creatinine [Mass ratio] 14.9 mg/mg Normal [facility] Comment on above: Performed By: #### D ATLIPI, DATPSA, DATBMP #### [facility] [address] [place] [address] Dr. Power Covarrubias TSHon 06-29-2022 TSH 2.585 uIU/mL Normal 0.358-3.740 [facility] Comment on above: Performed By: #### T SH, LIPID, FT3, CMP #### [facility] [address] [place] [address] Dr. Power Covarrubias CBC AUTO DIFFon 04-09-2022 BASO # 0.1 103/ul Normal 0.0-0.[address] [facility] Comment on above: Performed By: #### D ATCBC #### [facility] [address] [place] [address] Dr. Power Covarrubias Basophils/100 WBC (Bld) 1.0 % Normal 0.2-2.[address] [facility] Comment on above: Performed By: #### D ATCBC #### [facility] [address] [place] [address] Dr. Power Covarrubias EO # 0.2 103/ul Normal 0.0-0.[address] [facility] Comment on above: Performed By: #### D ATCBC #### [facility] [address] [place] [address] Dr. Power Covarrubias Eosinophils/100 WBC (Bld) 3.7 % Normal 0.9-7.[address] [facility] Comment on above: Performed By: #### D ATCBC #### [facility] [address] [place] [address] Dr. oPwer Covarrubias Erythrocyte distribution width (RBC) [Ratio] 13.3 % Normal 11.0-15.[address] [facility] Comment on above: Performed By: #### D ATCBC #### [facility] [address] [place] [address] Dr. Power Covarrubias Hematocrit (Bld) [Volume fraction] 37.8 % Critically low 42.0-54.[address] [facility] Comment on above: Performed By: #### D ATCBC #### [facility] [address] [place] [address] Dr. Power Covarrubias Hemoglobin (Bld) [Mass/Vol] 12.4 g/dL Critically low 14.0-18.0 [facility] Comment on above: Performed By: #### D ATCBC #### [facility] [address] [place] [address] Dr. Power Covarrubias IG # 0.01 10e3/ul Normal 0.00-0.[address] [facility] Comment on above: Performed By: #### D ATCBC #### [facility] [address] [place] [address] Dr. Power Covarrubias IG % 0.2 % Normal 0.0-0.5 [facility] Comment on above: Performed By: #### D ATCBC #### [facility] [address] [place] [address] Dr. Power Covarrubias LYMPH # 1.0 103/ul Critically low 1.2-3.8 [facility] [place] Comment on above: Performed By: #### D ATCBC #### [facility] [address] [place] [address] Dr. Power Covarrubias Lymphocytes/100 WBC (Bld) 19.0 % Critically low 20.5-60.0 [facility] Comment on above: Performed By: #### D ATCBC #### [facility] [address] [place] [address] Dr. Power Covarrubias MCH (RBC) [Entitic mass] 30.9 pg Normal 25.9-34.0 [facility] Comment on above: Performed By: #### D ATCBC #### [facility] [address] [place] [address] Dr. Power Covarrubias MCHC (RBC) [Mass/Vol] 32.8 g/dL Normal 29.9-35.2 [facility] Comment on above: Performed By: #### D ATCBC #### [facility] [address] [place] [address] Dr. Power Covarrubias MCV (RBC) [Entitic vol] 94.3 fL Critically high 80.0-94.0 [facility] Comment on above: Performed By: #### D ATCBC #### [facility] [address] [place] [address] Dr. Power Covarrubias MONO # 0.5 103/ul Normal 0.3-0.8 [facility] Comment on above: Performed By: #### D ATCBC #### [facility] [address] [place] [address] Dr. Power Covarrubias Monocytes/100 WBC (Bld) 9.4 % Normal 1.7-12.0 [facility] Comment on above: Performed By: #### D ATCBC #### [facility] [address] [place] [address] Dr. Power Covarrubias NEUT # 3.4 103/ul Normal 1.4-6.[address] [facility] Comment on above: Performed By: #### D ATCBC #### [facility] [address] [address] [address] Power Covarrubias Neutrophils/100 WBC (Bld) 66.7 % Normal 43.0-75.[address] [facility] Comment on above: Performed By: #### D ATCBC #### [facility] [address] [address] [address] Power Covarrubias Platelet mean volume (Bld) [Entitic vol] 9.9 fL Normal 9.5-13.[address] [facility] Comment on above: Performed By: #### D ATCBC #### [facility] [address] [address] [address] Power Covarrubias PLT 205 103/ul Normal 150-450 [facility] Comment on above: Performed By: #### D ATCBC #### [facility] [address] [address] [address] Power Covarrubias RBC 4.01 106/ul Critically low 4.70-6.10 [facility] Comment on above: Performed By: #### D ATCBC #### [facility] [address] [address] [address] Power Covarrubias WBC 5.1 103/ul Normal 4.0-11.[address] [facility] Comment on above: Performed By: #### D ATCBC #### [facility] [address] [address] [address] Power Covarrubias BRE- BMP WITH LIPIDon 2021 Anion gap [Moles/Vol] 9.5 mmol/L Normal [facility] Comment on above: Performed By: #### D ATLIPI, DATPSA, DATBMP #### [facility] [address] [place] [address] Dr. Power Covarrubias Calcium [Mass/Vol] 9.0 mg/dL Normal 8.5-10.1 [facility] Comment on above: Performed By: #### D ATLIPI, DATPSA, DATBMP #### [facility] [address] [address] [address] Power Covarrubias Chloride [Moles/Vol] 108 mmol/L Critically high 98-107 [facility] Comment on above: Performed By: #### D ATLIPI, DATPSA, DATBMP #### [facility] [address] [address] [address] Power Covarrubias Cholesterol [Mass/Vol] 114 mg/dL Normal <=200 [facility] Comment on above: Performed By: #### D ATLIPI, DATPSA, DATBMP #### [facility] [address] [address] [address] Power Covarrubias Cholesterol in HDL [Mass/Vol] 49 mg/dL Normal 40-60 [facility] Comment on above: Performed By: #### D ATLIPI, DATPSA, DATBMP #### [facility] [address] [place] [address] Dr. Power Covarrubias Cholesterol in LDL [Mass/Vol] 50.4 mg/dL Normal [facility] Comment on above: Performed By: #### D ATLIPI, DATPSA, DATBMP #### [facility] [address] [place] [address] Dr. Power Covarrubias CO2 [Moles/Vol] 28.3 mmol/L Normal 21.0-32.0 [facility] Comment on above: Performed By: #### D ATLIPI, DATPSA, DATBMP #### [facility] [address] [address] [address] Power Covarrubias Creatinine [Mass/Vol] 0.88 mg/dL Normal 0.70-1.30 [facility] Comment on above: Performed By: #### D ATLIPI, DATPSA, DATBMP #### [facility] [address] [place] [address] Dr. Power Covarrubias EGFR-AF TAIWANESE >60 Normal >=60 [facility] Comment on above: Performed By: #### D ATLIPI, DATPSA, DATBMP #### [facility] [address] [address] [address] Power Covarrubias EGFR-NON AF TAIWANESE >60 Normal >=[address] [facility] Comment on above: Performed By: #### D ATLIPI, DATPSA, DATBMP #### [facility] [address] [address] [address] Power Covarrubias Glucose [Mass/Vol] 107 mg/dL Critically high 74-106 [facility] Comment on above: Performed By: #### D ATLIPI, DATPSA, DATBMP #### [facility] [address] [address] [address] Power Covarrubias HDL NORMAL > or = 60 mg/dl - LO W CARDIOVASCULAR RISK <40 mg/dl - HIGH CARDIOVASCULAR RISK Normal [facility] Comment on above: Performed By: #### D ATLIPI, DATPSA, DATBMP #### [facility] [address] [place] [address] Dr. Power Covarrubias LDL CALC NORMAL SEE BELOW Normal [facility] Comment on above: Result Comment: <100 mg/dl OPTIMAL 100 - 129 mg/dl NEAR OR ABOVE OPTIMAL 130 - 159 mg/dl BORDERLINE HIGH 160 - 189 mg/dl HIGH >190 mg/dl VERY HIGH Performed By: #### D ATLIPI, DATPSA, DATBMP #### [facility] [address] [place] [address] Dr. Power Covarrubias Potassium [Moles/Vol] 3.8 mmol/L Normal 3.5-5.[address] [facility] Comment on above: Performed By: #### D ATLIPI, DATPSA, DATBMP #### [facility] [address] [address] [address] Poewr Covarrubias Sodium [Moles/Vol] 142 mmol/L Normal 136-145 [facility] Comment on above: Performed By: #### D ATLIPI, DATPSA, DATBMP #### [facility] [address] [address] [address] Power Covarrubias Triglyceride [Mass/Vol] 73 mg/dL Normal <=[address] [facility] Comment on above: Performed By: #### D ATLIPI, DATPSA, DATBMP #### [facility] [address] [place], [place] [address] Dr. Power Covarrubias Urea nitrogen [Mass/Vol] 12.0 mg/dL Normal 7.0-18.[address] [facility] Comment on above: Performed By: #### D ATLIPI, DATPSA, DATBMP #### [facility] [address] [id number] [address] Power Covarrubias Urea nitrogen/Creatinine [Mass ratio] 13.6 mg/mg Normal [facility] Comment on above: Performed By: #### D ATLIPI, DATPSA, DATBMP #### [facility] [address] [address] [address] Power Covarrubias VLDL CALC 14.6 mg/dL Normal [facility] Comment on above: Performed By: #### D ATLIPI, DATPSA, DATBMP #### [facility] [address] [address] [address] Power Covarrubias Cardiovascular Lab Reporton 07-03-2020 Cardiovascular Lab Report [facility] Patient Name: [facility] MR #: [id number] Physician: Shiloh Hester Department of M.D. Medicine Service Date: 07/03/2020 Division of Birthdate: 1945 Cardiology Room #: Adult Cardiovascular Services [place] [address] Cardiovascular Laboratory Report FINAL IMPRESSIONS: 1. Hqog-wv-azwemlln 3-vessel coronary artery disease. 2. Bojt-gy-wlctiebu left main coronary artery disease that appears [...] Follow up with Dr. Hester in the [facility] in the next 1 to 2 months. [...] to access the left radial artery. A 6-Greek glide sheath was inserted without difficulty. Resistance [...] Hester M.D. Date Trans: 07/03/2020 02:42 P/soniyao [id number] cc: Neo Gould M.D. [address], [place] [address] [place] [facility] Vital Signs Date Time Vital Sign Value Performing Clinician Zbigniew stinson 03-28-2023 14:23-0400 Blood Pressure Location Zhang DENISE [facility] [place] 03-28-2023 14:23-0400 Diastolic blood pressure 60 mm[Hg] Zhang CHENL [facility] 03-28-2023 14:23-0400 Heart rate 60 /min [facility] 03-28-2023 14:23-0400 Respiratory rate 16 /min Zhang DENISE [facility] [place] 03-28-2023 14:23-0400 Systolic blood pressure 116 mm[Hg] Zhang DENISE [facility] [place] Encounters Encounter Date Encounter Type Care Provider Facility Start: 09-13-2023 ambulatory Neo Gould Facility:[facility] [place] Start: 06-15-2023 ambulatory Zhang DENISE Facility:[facility] [place] Start: 06-01-2023 End: 06-01-2023 [facility] Start: 05-09-2023 ambulatory Zhang DENISE Facility :[facility] [place] Start: 04-26-2023 End: 04-27-2023 ambulatory Zhang DENISE Facility:[id number] Start: 03-28-2023 End: 03-29-2023 ambulatory Zhang [...] By: #### D ATLIPI, DATPSA, DATBMP #### [facility] [address] [place] [address] Dr. Power Covarrubias Start: 08-31-2022 PSA screening PEBBLES B O[facility] Comment on above: Performed By: #### D ATLIPI, DATPSA, DATBMP #### [facility] [address] [address] [address] Power Covarrubias Start: 06-29-2022 PSA screening PEBBLES B OES Comment on above: Performed By: #### P SASC #### [facility] [address] [place] [address] Dr. Power Covarrubias Start: 10-04-2017 Colonoscopy Zhang NG Excision of lumbar intervertebral disc Zhang NILL Comment on above: L5 Repair of hip Zhang NILL Immunizations Immunization Date Immunization Notes Care Provider Fa cili 04-29-2021 SARS-CoV-2 (COVID-19 ) mRNA BNT-162b2 vax Zhang NILL [facility] [place] 04-09-2021 SARS-CoV-2 (COVID-19 ) mRNA BNT-162b2 vax Zhang NILL [facility] [place] Payers Date Payer Category Payer Unknown [id number] 1958 Self-pay 1958 Unknown [id number] 1945 Unknown [id number] 2.16.84 [id number] 1945 Unknown [id number] 2.16.84 [id number] 1945 Unknown [id number] 2.16.8 [id number] 1945 Unknown [id number] 2.16.8 [id number] 1945 Unknown [id number] 2.16.8 [id number] 1945 Unknown [id number] 2.16.8 [id number] 1945 Unknown [id number] 2.16.8 [id number] 1945 Unknown [id number] 2.16.8 [id number] Unknown [id number] 2.16.84 [id number] Unknown [id number] 2.16.84 [id number] Unknown [id number] 2.16.84 [id number] Social History Date Type Detail Facility Start: 03-28-2023 Tobacco smoking status Never s moked tobacco (finding) [facility] [place] Tobacco smoking status Never Gener [facility] [place] Sex Assigned At Male [facility] Functional Status Date Assessment Result Facility 03-28-2023 Functional Status N/A [facility] [place] Progress note 06-01-2023 Note Date & Type [...] month ago He was admitted 04/28-05/02 at [facility] following the last fall and has been [...] bradycardia during ho (more content not included)... [facility] Clinical Note 03-28-2023 Note Date & [...] informed consent obtained. 2. Chronic anticoagulation (Z79.01: halfway (current) use of anticoagulants) hold Eliquis 2 [...] SARS-CoV-2 (COVID-19) mRNA BNT-162b2 vax 04/09/2021 Recorded [facility] Comment on above: Result Comment: Elec tronically Signed By: HOWIE LOPEZ, Zhang Jensen\adrien\Date and Time Signed: 03/28/23 20:17 EDT Evaluation + Plan note Note Date & Type Note Facility Evaluation + Plan note No data available for this section [facility] [place] [facility] Discharge instructions Note Date & Type Note Facility Hospital Discharge instructions No data available for this section [facility] [place] Progress note Note Date & Type Note [...] and content) DATE CREATED AUTHOR 07/07/2020 [facility] DATE CREATED AUTHOR AUTHOR'S ORGANIZ ATION 03/02/2023 [facility] DATE CREATED AUTHOR AUTHOR'S ORGANIZ ATION 06/05/2023 [facility] DATE CREATED AUTHOR AUTHOR'S ORGANIZ ATION 07/23/2023 [facility] Patient Care team informatio n (unrecognized section and content) Personnel Name: Neo Gould MD Address: Address: [address] [place] [address] FOR RECORDS PERTAINING TO PATIENTS WHO ARE [...] BE BASED ON THE PRIMARY CLINICAL RECORDS. [facility] provides no warranty or guarantee of the accuracy or completeness of information in this document.
[2023-10-15 09:50] LABS: C. Difficile PCR NEGATIVE (NEGATIVE)
== END 2023-10-14 13:17 | disposition home or self-care (01) ==
LOC: LAB 13:16
PROVIDERS: PCP Family Medicine; Visit Provider Family Medicine
DX: R19.7 Diarrhea, unspecified (principal)
CPT/HCPCS: 87045; 87046; 87427; 87493

== ENCOUNTER 2024-01-19 14:27 | Observation (INO) | payer MEDICARE, SELFPAY ==
[2024-01-19] VITALS (35 sets, daily range): BP systolic 124–174; BP diastolic 51–87; PULSE 43–78; TEMP 36.6–37.3; O2SAT 95–100; BMI 32.3; BMI 32.4
--- NOTE | 2024-01-19 14:50 | ECG_ITS ---
[facility] Test Date: 2024-01-19 Pat Name: JACKSON IQBAL Department: Room: - Gender: Male Set Illustrator: : 1945 Requested By: NEO CARRERA Order Number: [id number] Reading MD: NEO CARRERA Measurements Intervals [place] Rate: 54 P: -[id number] OK: -[id number] QRS: -14 QRSD: 110 T: 54 QT: 440 QTc: 425 Interpretive Statements [id number] Atrial fibrillation with aberrant conduction, or ventricular premature complexes 9140 abnormal rhythm ECG Compared to ECG 04/24/2019 19:50:48 Ventricular premature complex(es) now present Aberrant conduction of supraventricular beat(s) now present Sinus bradycardia no longer present First degree AV block no longer present Left-axis deviation no longer present Electronically Signed On 01-20-2024 8:26:31 EDT by NEO CARRERA
--- NOTE | 2024-01-19 14:50 | CT_ITS ---
The [address] [address] Patient Name: JACKSON IQBAL MRN: [id number] date: 1945 Sex: M Assigned Patient Location: ED.MAIN Current Patient Location: ER Accession/Order Number: [id number] Exam Date: 01/19/2024 14:56 Report Date: 01/19/2024 15:19 At the request of: CHANTAL LYNN Procedure: CT head/brain wo con EXAM: CT scan of the head without contrast. Dose reduction technique used: Automated exposure control and/or adjustment of the mA and/or kV according to patient size and/or use of iterative reconstruction technique. REASON FOR EXAM: Head injury on anticoagulation COMPARISON: CT scan dated 04/28/2023 FINDINGS: No intracranial hemorrhage, mass effect, midline shift, fractures or evidence of acute ischemic infarct. No hydrocephalus. Mild generalized cerebral and cerebellar volume loss. Mild small vessel gliosis. Paranasal sinuses and mastoid air cells are clear. Remainder unremarkable. CT/CT head/brain wo con IMPRESSION: No acute intracranial abnormalities. Electronically authenticated by: LALO JASON Date: 01/19/2024 15:19
--- NOTE | 2024-01-19 14:53 | ED.GENADUL1 ---
HPI HPI - General Adult General Chief complaint: Fall Stated complaint: FALL, WEAKNESS Time Seen by Provider: 01/19/24 14:45 Source: patient Mode of arrival: ambulance Limitations: no limitations History of Present Illness HPI narrative: Patient is a 78-year-old male Who is presenting to the Emergency Room by EMS after a fall in his bathroom. Patient lives in a trailer. Patient uses a walker for ambulation at home. Patient states the last few days he's been having more pain to his left lower leg and weakness to his left lower leg. Patient states that he was sitting on the toilet, when he went to go stand up from the toilet his left leg gave out from him which has been happening in the past, more acute on chroniic in the past few days. Patient has chronic hip pain, chronic knee pain. Patientt's having more pain in his left knee today. Patient has intermittent paresthesias to his bilateral feet. Patient is on eliquis secondary to atrial fibrillation. Patient says that he was not lightheaded, dizzy, no chest pain or shortnnesss of breath, patient simply fell because his left leg edema from under him. Patient has had this happen to him several times in the last month or 2, but more symptoms in the past few days. Patient's PCP is Dr. Gould. Patient has no strokeliike signs or symptoms at this time. No decreased sensation so lower leg. Patient has normal plantar dorsiflexion too both feet, patient does not have good effort with range of motion to his left leg. Patient does have mild to moderate pain to his left hip with internall/external rotation left hip and movement of the lleft hip. Patient's chronic lower back pain. Patient says that he was a home alone, he has no care for him, and patient thought by coming too the Emergency Room that he would be admitted for the weekend. This was said by the patient during initial HPI. Patient currently has no headache, neck pain, chest pain, shortness of breath. We initially discussed x-raying patient's leeft knee and did a CT of his head secondary to fall and possible head injury and anticoagulation. We also discussed a medical workkupp as well, patient prefers medical workup andd lab work to be done. All systems are negative except as noted/marked. All systems reviewed and otherwise negative. Nurses note and vital signs reviewed and patient is not hypoxic. General: The patient appears well and in no apparent distress. Patient is resting comfortably on cart. Patient is not toxic, lethargic, or listless Skin: Warm, dry, no pallor noted. There is no rash noted. No petechiae, purpura. Head: Normocephalic, atraumatic; Patient has no scalp hematoma. Patient has no midline or paracervical tenderness to palpation. Full range of motion of cervical spinal no difficulty. Eye: Normal conjunctiva, no drainage, EOMI. PERRL Ears, Nose, Mouth, and Throat: oral mucosa is moist. Nares patent. Mouth without vesicles. Cardiovascular: Irregular irregular Rate and Rhythm, no murmur, gallop, rub Respiratory: Patient is in no distress, no accessory muscle use, lungs are clear to auscultation, no wheezing, rales or rhonchi Back: non-tender, no CVA tenderness bilaterally to percussion. No CT LS midline pain GI: Obese, no tenderness to palpation, no masses appreciated. No rebound, guarding, or rigidity noted. No distention Musculoskeletal: Patient has full range of motion of all of the extremities, no motor, sensory, or focal neurological deficits Neurological: A&O x4, normal speech, NIH 4; 3 for no effort to gravity when picking up his left leg, 1 for a right lower leg drift but his leg did not hit the bed. Patient also has normal plantar dorsal reflex to bilateral feet, no loss of sensation to bilateral lower extremities. Patient says that he's having pain to left hip andd left knee when he is raising up his left leg, I question effort secondary to pain when testing patient's left leg for strokelike signs or symptoms. Psychiatric: Cooperative Related Data Home Medications ?Medication ?Instructions ?Recorded ?Confirmed atorvastatin 80 mg tablet 80 mg PO QPM 04/12/23 01/19/24 furosemide 40 mg tablet 40 mg PO Q12H 04/12/23 01/19/24 apixaban 2.5 mg tablet (Eliquis) 5 mg PO BID 01/19/24 01/19/24 Previous Rx's ?Medication ?Instructions ?Recorded acetaminophen 500 mg tablet 1,000 mg (2 x 500 mg) PO Q6H PRN 05/02/23 (Tylenol Extra Strength) Pain Scale 1-3 #120 tabs Allergies Allergy/AdvReac Type Severity Reaction Status Date / Time No Known Drug Allergies Allergy Verified 01/19/24 14:38 Opioid HPI Opioid Management Most Recent Opioid Data: Last Pain Scale 4 06/16/23 11:30 Last Pain Intensity 3 06/16/23 11:30 [facility] Medical History (Updated 01/19/24 @ 19:43 by Aaron Reyez MD) Bradycardia with 31-40 beats per minute ?R00.1 - Bradycardia, unspecified (ICD-10) Hypokalemia ?E87.6 - Hypokalemia (ICD-10) PVC (premature ventricular contraction) ?I49.3 - Ventricular premature depolarization (ICD-10) Lower extremity edema ?R60.0 - Localized edema (ICD-10) Obesity ?E66.9 - Obesity, unspecified (ICD-10) Hypertension ?I10 - Essential (primary) hypertension (ICD-10) Prostate cancer ?C61 - Malignant neoplasm of prostate (ICD-10) Colon polyps ?K63.5 - Polyp of colon (ICD-10) Heart failure, diastolic ?I50.30 - Unspecified diastolic (congestive) heart failure (ICD-10) Coronary arteriosclerosis ?I25.10 - Atherosclerotic heart disease of [place] coronary artery without angina pectoris (ICD-10) Chronic anticoagulation ?Z79.01 - chief meteorologist (current) use of anticoagulants (ICD-10) Cervical disc disease ?M50.90 - Cervical disc disorder, unspecified, unspecified cervical region (ICD-10) Atrial fibrillation ?I48.91 - Unspecified atrial fibrillation (ICD-10) Surgical History Family History Other Family history not known due to adoption Social History Within the past year, how often did you have a drink containing alcohol: never Score interpretation: A score less than 4 is consistent with normal alcohol consumption. 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 Known occupational exposures/hazards: No Highest level of school completed/degree received: Associate degree: occupational, technical, vocational program Do you want help with school or training: No Are you now , , , , never or living with a partner: In a typical week, how many times do you talk on the telephone with family, friends, or neighbors: 3 or more times per week How often do you get together with friends or relatives: once per week How often do you attend denominational or amish services: never Do you belong to any clubs or organizations such as denominational groups unions, fraternal or athletic groups, or school groups: no Total score: 1 Score interpretation: A score of less than or equal to 1 indicates the most socially isolated. Little interest or pleasure in doing things: not at all Feeling down, depressed, or hopeless: not at all Feel stressed/tense/nervous/anxious/difficulty sleeping: not at all Due to disability, difficulty making decisions: No Do you think of yourself as: straight/heterosexual Gender Identity: male Exam Constitutional Vital Signs, click to edit/add: Last Vital Signs Temp 98.3 F 01/19/24 14:32 Pulse 62 01/19/24 18:16 Resp 16 01/19/24 14:32 BP 133/53 01/19/24 18:16 Pulse Ox 97 01/19/24 16:46 O2 Del Method Room Air 01/19/24 14:32 Course Vital Signs Vital signs: Vital Signs Pulse Rate 75 01/19/24 14:30 Pulse Oximetry 100 01/19/24 14:30 Temperature 98.3 F 01/19/24 14:32 Pulse Rate 62 01/19/24 18:16 Respiratory Rate 16 01/19/24 14:32 Blood Pressure 133/53 01/19/24 18:16 Pulse Oximetry 97 01/19/24 16:46 Oxygen Delivery Method Room Air 01/19/24 14:32 Medical Decision Making MDM Narrative Medical decision making narrative: Patient CT of the brain Shows no acute findings. Patient left knee x-ray, left hip and pelvic x-ray showed no acute findinngs. Chest x-ray negative. Patient's lab work shows no other significant findingg. Patient's potassium was 3.4. Patient was told that we are not finding any acute findings, and wwas told that he most likely will be discharged as long as he can function with his walker prior to discharge. Patient again told me that he was upset that he was not going to be staying overnight in the hospital, secondary not having somebody at home to care for him, uses a walker. Patient was stood up by Ratna Shore RN, was able to stand up with his walker and then took one small baby step with his left leg and stated that he cannot support his weight on his left leg, it was too weak and the pain in his left knee was not allowing him to walk normally and function at home. Patient did not feel safe going home. Patient would not take additional steps with his walker as asked to by nurse and myself; patient said he did not feel stroong, was too weak and is concerned about falling again. 1840 Again stroke testing was done on patient'ss bilateral lower extremities. Patient has no sensation loss to bilateral lower extremities. Patient does not give any resistance to his left leg when you pick it up told it up in the air, he will not try to turkey picker his left leg as well. Patient is able to turkey picker his right leg, there is a small drift to the right leg but he is does not hit the bed with his right leg. When asked to plantar and dorsiflex with bilateral feet, he doesn't easily with no difficulties and no motor deficits. When patient was aattempting to turkey picker his left leg, I had my hand underneath his left calf/heel, and there is no pressure to the right leg, Calf or heel when he'ss trying to picck up his left leg. I discussed malingering with the patient and he stated he was not dooing that, the weakness and pain to his left leg has been getting worse for the past 3 days and he is not safe to go home. Patient states the symptoms been ongoing for 3 days, there is no acute onset of loss of function to his left leg, I do not believe patient is showing strokelike signs or symptoms to his left leg, and patient states his symptoms have been present for the past 3 days, more than 24 hours. 190 0 I did speak to Valente, nurse practitioner for hospitalist team. Patient will be admitted to Dr. Gould for observation. Patient will have physical therapy, occupational therapy, and patient is aware of the possibility or need to be placed in rehab if he does not feel safe going home and functioning. Lab Data Lab results reviewed: Yes I reviewed the patient's lab results Labs: Lab Results 01/19/24 Range/Units 15:31 WBC 7.8 (4.0-11.0) 10^3/uL RBC 4.28 L (4.70-6.10) 10^6/uL Hgb 13.0 L (14.0-18.0) g/dL Hct 40.7 L (42.0-54.0) % MCV 95.1 H (80.0-94.0) fL MCH 30.4 (25.9-34.0) pg MCHC 31.9 (29.9-35.2) g/dL RDW 13.1 (11.0-15.0) % Plt Count 216 (150-450) 10^3/uL MPV 10.0 (9.5-13.5) fL Neut % (Auto) 75.8 H (43.0-75.0) % Lymph % (Auto) 15.9 L (20.5-60.0) % [place] % (Auto) 7.3 (1.7-12.0) % Eos % (Auto) 0.5 L (0.9-7.0) % Baso % (Auto) 0.4 (0.2-2.0) % Neut # (Auto) 5.9 (1.4-6.5) 10^3/uL Lymph # (Auto) 1.2 (1.2-3.8) 10^3/uL [place] # (Auto) 0.6 (0.3-0.8) 10^3/uL Eos # (Auto) 0.0 (0.0-0.7) 10^3/uL Baso # (Auto) 0.0 (0.0-0.1) 10^3/uL Abs Immat Gran (auto) 0.01 (0.00-0.03) 10^3/uL Imm/Tot Granulo (auto) 0.1 (0.0-0.5) % Sodium 144 (136-145) mmol/L Potassium 3.4 L (3.5-5.1) mmol/L Chloride 105 (98-107) mmol/L Carbon Dioxide 27.6 (21.0-32.0) mmol/L Anion Gap 14.8 BUN 12.0 (7.0-18.0) mg/dL Creatinine 1.01 (0.70-1.30) mg/dL Est GFR ( Amer) >60 (>=60) Est GFR (Non-Af Amer) >60 (>=60) BUN/Creatinine Ratio 11.9 Glucose 97 (74-106) mg/dL Calcium 10.1 (8.5-10.1) mg/dL Total Bilirubin 0.9 (0.2-1.0) mg/dL AST 17 (15-37) U/L ALT 16 (16-63) U/L Alkaline Phosphatase 90 (46-116) U/L Troponin I High Sens 11.8 (4.0-76.1) pg/mL Total Protein 7.1 (6.4-8.2) g/dL Albumin 3.6 (3.4-5.0) g/dL Globulin 3.5 g/dL Albumin/Globulin Ratio 1.[address] scan - head: Radiologist's impression: ITS Impressions Head CT 01/19/24 14:50 IMPRESSION: No acute intracranial abnormalities. Electronically authenticated by: LALO JASON Date: 01/19/2024 15:19 Chest X-Ray 01/19/24 15:20 IMPRESSION: Unremarkable chest x-ray. Electronically authenticated by: LALO JASON Date: 01/19/2024 16:01 Hip/Pelvis X-Ray 01/19/24 15:20 IMPRESSION: No definite evidence of acute injury to the left hip, although visualization of the left hip is not optimal. If clinical concern remains, consider further evaluation with CT. Electronically authenticated by: PRABHA REZA Date: 01/19/2024 16:00 Knee X-Ray 01/19/24 15:20 IMPRESSION: Limited but grossly negative for acute osseous injury. Degenerative changes. Electronically authenticated by: PRABHA REZA Date: 01/19/2024 15:57 ECG Data Attestation: I personally reviewed and interpreted this ECG as follows: (EKG interpretation. Irregular irregular rhythm at 54 beats a minute. Normal axis deviation. No acute ST elevation, no acute ectopy. QTc of 425. PVC noted. Patient has a history of A-fib) Discharge Plan Discharge Chief Complaint: Fall Clinical Impression: Leg pain, left, Left leg weakness, Near syncope, Frequent falls, Inability to walk Patient Disposition: Admitted as Observation Time of Disposition Decision: 19:15 Condition: Fair
--- NOTE | 2024-01-19 15:20 | XR_ITS ---
The [address] [address] Patient Name: JACKSON IQBAL MRN: [id number] date: 1945 Sex: M Assigned Patient Location: ER Current Patient Location: ER Accession/Order Number: [id number] Exam Date: 01/19/2024 15:00 Report Date: 01/19/2024 16:01 At the request of: HCANTAL LYNN Procedure: XR chest 1V Exam: Radiographs: XR chest 1V Reason for exam: fall Comparison: Chest x-ray dated 06/16/2023 XR/XR chest 1V IMPRESSION: Unremarkable chest x-ray. Electronically authenticated by: LALO JASON Date: 01/19/2024 16:01
--- NOTE | 2024-01-19 15:20 | XR_ITS ---
The [address] [address] Patient Name: JACKSON IQBAL MRN: [id number] date: 1945 Sex: M Assigned Patient Location: ER Current Patient Location: ER Accession/Order Number: [id number] Exam Date: 01/19/2024 15:00 Report Date: 01/19/2024 15:57 At the request of: CHANTAL LYNN Procedure: XR knee LT 3V EXAM: Left knee HISTORY: Pain after a fall. TECHNIQUE: 3 views of the left knee were obtained. FINDINGS: There is no definite evidence of fracture or dislocation. Positioning is suboptimal. 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 There are multiple soft tissue calcifications posteriorly. There are no suspicious bone lesions. Soft tissues are normal. XR/XR knee LT 3V IMPRESSION: Limited but grossly negative for acute osseous injury. Degenerative changes. Electronically authenticated by: PRABHA REZA Date: 01/19/2024 15:57
--- NOTE | 2024-01-19 15:20 | XR_ITS ---
The [address] [address] Patient Name: JACKSON IQBAL MRN: [id number] date: 1945 Sex: M Assigned Patient Location: ER Current Patient Location: ER Accession/Order Number: [id number] Exam Date: 01/19/2024 15:00 Report Date: 01/19/2024 16:00 At the request of: CHANTAL LYNN Procedure: XR hip LT 2V w/ pelvis EXAM: Pelvis and left hip HISTORY: Pain after a fall. History of right hip arthroplasty. TECHNIQUE: 4 views of the pelvis and left hip were obtained. FINDINGS: Positioning is suboptimal. There is no definite evidence of fracture or dislocation. There are no suspicious bone lesions. The visualized right hip prosthesis shows no evidence of loosening. Soft tissues are normal. XR/XR hip LT 2V w/ pelvis IMPRESSION: No definite evidence of acute injury to the left hip, although visualization of the left hip is not optimal. If clinical concern remains, consider further evaluation with CT. Electronically authenticated by: PRABHA REZA Date: 01/19/2024 16:00
[2024-01-19] MEDS: 0.9 % SODIUM CHLORIDE 1,000 ML 1000 ML IV (15:34)
[2024-01-19 15:38] LABS: Basophils Percent Auto 0.4 % (0.2-2.0); Eosinophils Percent Auto 0.5 % (0.9-7.0); Hematocrit 40.7 % (42.0-54.0); Immature Granulocytes Abs Auto 0.01 10^3/uL (0.00-0.03); Immature Granulocytes Pct Auto 0.1 % (0.0-0.5); Lymphocytes Absolute Auto 1.2 10^3/uL (1.2-3.8); Lymphocytes Percent Auto 15.9 % (20.5-60.0); Mean Corpuscular HGB Conc 31.9 g/dL (29.9-35.2); Mean Corpuscular Hemoglobin 30.4 pg (25.9-34.0); Mean Corpuscular Volume 95.1 fL (80.0-94.0); Monocytes Absolute Auto 0.6 10^3/uL (0.3-0.8); Monocytes Percent Auto 7.3 % (1.7-12.0); Neutrophils Absolute Auto 5.9 10^3/uL (1.4-6.5); Neutrophils Percent Auto 75.8 % (43.0-75.0); Platelet Count 216 10^3/uL (150-450); Red Blood Count 4.28 10^6/uL (4.70-6.10); Red Cell Distribution Width 13.1 % (11.0-15.0); White Blood Count 7.8 10^3/uL (4.0-11.0)
[2024-01-19 15:55] LABS: Alanine Aminotransferase 16 U/L (16-63); Albumin Level 3.6 g/dL (3.4-5.0); Alkaline Phosphatase 90 U/L (46-116); Anion Gap 14.8; Aspartate Amino Transferase 17 U/L (15-37); BUN Creatinine Ratio 11.9; Bilirubin Total 0.9 mg/dL (0.2-1.0); Calcium 10.1 mg/dL (8.5-10.1); Carbon Dioxide 27.6 mmol/L (21.0-32.0); Chloride 105 mmol/L (98-107); Estimated GFR (African America >60 (>=60); Estimated GFR (Non-African Ame >60 (>=60); Globulin 3.5 g/dL; Glucose 97 mg/dL (74-106); Potassium 3.4 mmol/L (3.5-5.1); Sodium 144 mmol/L (136-145); Total Protein 7.1 g/dL (6.4-8.2); Troponin I High Sensitivity 11.8 pg/mL (4.0-76.1)
[2024-01-19] MEDS: APIXABAN 5 MG TABLET PO (21:59)
[2024-01-19] MEDS: ATORVASTATIN CALCIUM 40 MG TABLET 80 MG PO (21:59)
[2024-01-20] VITALS (14 sets, daily range): BP systolic 119–144; BP diastolic 54–70; PULSE 46–72; TEMP 36.6–36.9; O2SAT 90–98
[2024-01-20] MEDS: ACETAMINOPHEN 325 MG TABLET 650 MG PO (02:15)
[2024-01-20 05:00] LABS: Anion Gap 9.3; BUN Creatinine Ratio 16.3; Calcium 9.3 mg/dL (8.5-10.1); Carbon Dioxide 28.6 mmol/L (21.0-32.0); Chloride 108 mmol/L (98-107); Estimated GFR (African America >60 (>=60); Estimated GFR (Non-African Ame >60 (>=60); Glucose 85 mg/dL (74-106); Sodium 143 mmol/L (136-145)
[2024-01-20 05:26] LABS: Potassium 2.9 mmol/L (3.5-5.1)
[2024-01-20] MEDS: POTASSIUM CHLORIDE 10 MEQ ER TABLET 40 MEQ PO (06:17)
[2024-01-20 09:32] LABS: Phosphorus 4.5 mg/dL (2.6-4.7)
--- NOTE | 2024-01-20 09:37 | P.HP_ITS ---
HPI H&P: HPI History of Present Illness Chief complaint: FALL, WEAKNESS Inability to ambulate Narrative: Patient seen and evaluated in the emergency room after a fall. He called our office with a fall and was unable to get up and asked us what to do, we encouraged him to call 911, he was concerned about the expense of that, I assured him that was his only option. In the ER he is unable to ambulate secondary to left leg pain and weakness. No difficulty with his left arm no difficulties in speech no other focal neurological deficits. I have saw patient up on the medical surgical floor, still describing the left leg pain and weakness. I feeling any other paresthesias down his leg. Upper extremity strength and speech were all normal. No concern for CVA is much as lumbar radiculopathy. Opioid HPI Opioid Management Most Recent Opioid Data: Last Pain Scale 5 01/21/24 09:00 Last Pain Intensity 3 06/16/23 11:30 Last Pain Assessment 01/21/24 09:00 Last MAR Pain Assessment 01/21/24 08:39 Last ORT Total Score 0 01/19/24 20:06 Last ORT Risk Category Low Risk 01/19/24 20:06 Review of Systems ROS Status of ROS 10 or more systems reviewed and unremark able except as noted in history and below [facility] Medical History (Updated 01/19/24 @ 19:43 by Aaron Reyez MD) Bradycardia with 31-40 beats per minute ?R00.1 - Bradycardia, unspecified (ICD-10) Hypokalemia ?E87.6 - Hypokalemia (ICD-10) PVC (premature ventricular contraction) ?I49.3 - Ventricular premature depolarization (ICD-10) Lower extremity edema ?R60.0 - Localized edema (ICD-10) Obesity ?E66.9 - Obesity, unspecified (ICD-10) Hypertension ?I10 - Essential (primary) hypertension (ICD-10) Prostate cancer ?C61 - Malignant neoplasm of prostate (ICD-10) Colon polyps ?K63.5 - Polyp of colon (ICD-10) Heart failure, diastolic ?I50.30 - Unspecified diastolic (congestive) heart failure (ICD-10) Coronary arteriosclerosis ?I25.10 - Atherosclerotic heart disease of [place] coronary artery without angina pectoris (ICD-10) Chronic anticoagulation ?Z79.01 - jail (current) use of anticoagulants (ICD-10) Cervical disc disease ?M50.90 - Cervical disc disorder, unspecified, unspecified cervical region (ICD-10) Atrial fibrillation ?I48.91 - Unspecified atrial fibrillation (ICD-10) Surgical History Family History (Updated 01/19/24 @ 20:15 by Alina Babin RN) Other Family history not known due to adoption Social History Within the past year, how often did you have a drink containing alcohol: never Score interpretation: A score less than 4 is consistent with normal alcohol consumption. 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 Known occupational exposures/hazards: No Highest level of school completed/degree received: Associate degree: occupational, technical, vocational program Do you want help with school or training: No Are you now , , , , never or living with a partner: In a typical week, how many times do you talk on the telephone with family, friends, or neighbors: 3 or more times per week How often do you get together with friends or relatives: once per week How often do you attend jewish or orthodox services: never Do you belong to any clubs or organizations such as jewish groups unions, fraternal or athletic groups, or school groups: no Total score: 1 Score interpretation: A score of less than or equal to 1 indicates the most socially isolated. Little interest or pleasure in doing things: not at all Feeling down, depressed, or hopeless: not at all Feel stressed/tense/nervous/anxious/difficulty sleeping: not at all Due to disability, difficulty making decisions: No Do you think of yourself as: straight/heterosexual Gender Identity: male Meds Home Medications and Allergies Home Medications ?Medication ?Instructions ?Recorded ?Confirmed ?Type atorvastatin 80 mg tablet 80 mg PO QPM 04/12/23 01/19/24 History furosemide 40 mg tablet 40 mg PO Q12H 04/12/23 01/19/24 History acetaminophen 500 mg tablet 1,000 mg (2 x 500 mg) PO Q6H PRN 05/02/23 01/19/24 Rx (Tylenol Extra Strength) Pain Scale 1-3 #120 tabs apixaban 5 mg tablet (Eliquis) 5 mg PO Q12H 01/20/24 01/20/24 History Allergies Allergy/AdvReac Type Severity Reaction Status Date / Time No Known Drug Allergies Allergy Verified 01/19/24 14:38 Exam Constitutional Vital Signs, click to edit/add: Last Vital Signs Temp 97.9 F 01/20/24 08:00 Pulse 53 L 01/20/24 08:00 Resp 18 01/20/24 08:00 BP 144/70 H 01/20/24 08:00 Pulse Ox 94 L 01/20/24 08:00 O2 Del Method Room Air 01/20/24 08:00 Documenting provider has reviewed patient's vital signs: yes Common normals: apparent distress (Mild painful distress) HENMT Common normals: normocephalic Chest Common normals: inspection of chest normal Respiratory Common normals: normal respiratory effort, no retractions, no use of accessory muscles and clear to auscultation bilaterally Cardio Common normals: regular rate, regular rhythm and no murmurs GI Common normals: Normal to inspection, nondistended, normoactive bowel sounds present Extremity Common normals: abnormal to inspection (1+ edema bilateral lower extremities) Neuro Sensorium/orientation: awake, alert, oriented to person, oriented to place and oriented to time Other: Weakness in left leg compared to right, see physical therapy notes Results Labs Labs: Short CBC 01/19/24 Range/Units 15:31 WBC 7.8 (4.0-11.0) 10^3/uL Hgb 13.0 L (14.0-18.0) g/dL Hct 40.7 L (42.0-54.0) % Plt Count 216 (150-450) 10^3/uL BMP 01/19/24 01/20/24 15:31 04:22 Sodium 144 143 Potassium 3.4 L 2.9 L* Chloride 105 108 H Carbon Dioxide 27.6 28.6 BUN 12.0 15.0 Creatinine 1.01 0.92 Glucose 97 85 Calcium 10.1 9.3 Liver Function 01/19/24 Range/Units 15:31 Total Bilirubin 0.9 (0.2-1.0) mg/dL AST 17 (15-37) U/L ALT 16 (16-63) U/L Alkaline Phosphatase 90 (46-116) U/L Albumin 3.6 (3.4-5.0) g/dL Assessment and Plan Assessment and Plan (1) Inability to walk: (2) Left leg weakness: Plan Patient with left leg pain and weakness-will have physical therapy work with patient today. Hold off on NSAIDs secondary to on Eliquis. Patient with recurrent falls and unable to get up from floor. Iron deficiency anemia-monitor daily Hypokalemia-supplement Hypomagnesemia-lab initially reported 0, this is improved after repeating the test, to 2.3. Peripheral edema-hold off on diuresis today, will encourage STEVENSON mcnair. Observation status: Patient on physical therapy work with him today evaluate for strength and conditioning left-sided maintain observation status
[2024-01-20] MEDS: POTASSIUM CHLORIDE 10 MEQ ER TABLET 20 MEQ PO ×2 (10:04→20:54)
[2024-01-20] MEDS: MAGNESIUM OXIDE 400 MG TABLET PO ×2 (10:05→20:54)
[2024-01-20] MEDS: APIXABAN 5 MG TABLET PO ×2 (10:05→20:54)
[2024-01-20] MEDS: POTASSIUM CHLORIDE 40 MEQ in 0.9 % SODIUM CHLORIDE 250 ML 67.5 MEQ IV (10:42)
[2024-01-20] MEDS: ACETAMINOPHEN 500 MG TABLET 1000 MG PO (10:45)
[2024-01-20 11:56] LABS: Bilirubin Urine NEGATIVE (NEGATIVE); Blood Urine TRACE-I (NEGATIVE); Clarity Urine CLEAR (CLEAR); Color Urine YELLOW (YELLOW); Glucose Urine UA NEGATIVE (NEGATIVE); Ketones Urine NEGATIVE (NEGATIVE); Leukocyte Esterase Urine NEGATIVE (NEGATIVE); Nitrite Urine NEGATIVE (NEGATIVE); Protein Urine NEGATIVE (NEG/TRACE); Urobilinogen Urine 0.2 EU/dL (0.2-1.0); pH Urine 5.5 (5.0-9.0)
[2024-01-20 11:59] LABS: Urine Microscopic Indicated YES
[2024-01-20 12:28] LABS: Bacteria Urine NONE SEEN #/HPF (NONE SEEN); Mucus Urine NONE SEEN (NONE SEEN); Squamous Epithelial Cell Urine FEW #/LPF (NONE/RARE); WBC Urine NONE SEEN #/HPF (NONE SEEN)
[2024-01-20 12:29] LABS: Urine Culture Indicated NO
[2024-01-20 15:07] LABS: Magnesium 2.1 mg/dL (1.8-2.4)
[2024-01-20 15:17] LABS: Anion Gap 12.6; BUN Creatinine Ratio 15.3; Calcium 9.7 mg/dL (8.5-10.1); Carbon Dioxide 26.7 mmol/L (21.0-32.0); Chloride 108 mmol/L (98-107); Estimated GFR (African America >60 (>=60); Estimated GFR (Non-African Ame >60 (>=60); Glucose 101 mg/dL (74-106); Potassium 4.3 mmol/L (3.5-5.1); Sodium 143 mmol/L (136-145)
[2024-01-20] MEDS: ATORVASTATIN CALCIUM 40 MG TABLET 80 MG PO (20:54)
[2024-01-21] VITALS (22 sets, daily range): BP systolic 105–158; BP diastolic 59–94; PULSE 45–74; TEMP 36.3–36.9; O2SAT 93–98
[2024-01-21 05:06] LABS: Basophils Absolute Auto 0.1 10^3/uL (0.0-0.1); Basophils Percent Auto 0.9 % (0.2-2.0); Eosinophils Absolute Auto 0.2 10^3/uL (0.0-0.7); Eosinophils Percent Auto 3.1 % (0.9-7.0); Hematocrit 36.4 % (42.0-54.0); Hemoglobin 11.2 g/dL (14.0-18.0); Immature Granulocytes Abs Auto 0.01 10^3/uL (0.00-0.03); Immature Granulocytes Pct Auto 0.1 % (0.0-0.5); Lymphocytes Percent Auto 29.1 % (20.5-60.0); Mean Corpuscular HGB Conc 30.8 g/dL (29.9-35.2); Mean Corpuscular Hemoglobin 30.1 pg (25.9-34.0); Mean Corpuscular Volume 97.8 fL (80.0-94.0); Mean Platelet Volume 10.3 fL (9.5-13.5); Monocytes Absolute Auto 0.7 10^3/uL (0.3-0.8); Monocytes Percent Auto 10.7 % (1.7-12.0); Neutrophils Absolute Auto 3.8 10^3/uL (1.4-6.5); Neutrophils Percent Auto 56.1 % (43.0-75.0); Platelet Count 202 10^3/uL (150-450); Red Blood Count 3.72 10^6/uL (4.70-6.10); Red Cell Distribution Width 13.2 % (11.0-15.0); White Blood Count 6.8 10^3/uL (4.0-11.0)
[2024-01-21 05:14] LABS: Anion Gap 14.3; BUN Creatinine Ratio 18.6; Calcium 9.4 mg/dL (8.5-10.1); Carbon Dioxide 25.9 mmol/L (21.0-32.0); Chloride 109 mmol/L (98-107); Estimated GFR (African America >60 (>=60); Estimated GFR (Non-African Ame >60 (>=60); Glucose 90 mg/dL (74-106); Potassium 4.2 mmol/L (3.5-5.1); Sodium 145 mmol/L (136-145)
[2024-01-21 05:28] LABS: Magnesium 2.2 mg/dL (1.8-2.4)
[2024-01-21] MEDS: POTASSIUM CHLORIDE 10 MEQ ER TABLET 20 MEQ PO ×2 (08:28→20:16)
[2024-01-21] MEDS: MAGNESIUM OXIDE 400 MG TABLET PO ×2 (08:29→20:16)
[2024-01-21] MEDS: APIXABAN 5 MG TABLET PO ×2 (08:29→20:16)
[2024-01-21] MEDS: ACETAMINOPHEN 500 MG TABLET 1000 MG PO ×2 (08:39→16:29)
--- NOTE | 2024-01-21 09:06 | P.PN_ITS ---
Progress Note: Subjective Subjective Interval history: Patient still with left leg weakness. Pain part may be somewhat better. Exam Constitutional Vital Signs, click to edit/add: Last Vital Signs Temp 98.5 F 01/21/24 08:00 Pulse 51 L 01/21/24 08:00 Resp 16 01/21/24 08:00 BP 158/94 H 01/21/24 08:00 Pulse Ox 96 01/21/24 08:00 O2 Del Method Room Air 01/21/24 08:00 Documenting provider has reviewed patient's vital signs: yes Common normals: apparent distress (Mild painful distress) [facility] Common normals: normocephalic Chest Common normals: inspection of chest normal Respiratory Common normals: normal respiratory effort, no retractions, no use of accessory muscles and clear to auscultation bilaterally Cardio Common normals: regular rate, regular rhythm and no murmurs GI Common normals: Normal to inspection, nondistended, normoactive bowel sounds present Extremity Common normals: abnormal to inspection (1+ edema bilateral lower extremities) Neuro Sensorium/orientation: awake, alert, oriented to person, oriented to place and oriented to time Other: Weakness in left leg compared to right, see physical therapy notes Progress Note: Objective Labs Labs: Short CBC 01/21/24 Range/Units 04:35 WBC 6.8 (4.0-11.0) 10^3/uL Hgb 11.2 L (14.0-18.0) g/dL Hct 36.4 L (42.0-54.0) % Plt Count 202 (150-450) 10^3/uL BMP 01/20/24 01/21/24 14:54 04:35 Sodium 143 145 Potassium 4.3 4.2 Chloride 108 H 109 H Carbon Dioxide 26.7 25.9 BUN 17.0 18.0 Creatinine 1.11 0.97 Glucose 101 90 Calcium 9.7 9.4 Urine 01/20/24 Range/Units 10:18 Urine Color Yellow (YELLOW) Urine Clarity Clear (CLEAR) Urine pH 5.5 (5.0-9.0) Ur Specific [place] 1.020 (1.005-1.025) Urine Protein Negative (NEG/TRACE) mg/dL Urine Glucose (UA) Negative (NEGATIVE) mg/dL Progress Note: A&P Assessment and Plan (1) Inability to walk: Plan Patient with left leg pain and weakness-continue with physical therapy today. Will try patient on IV Norflex and Solu-Medrol., Holding off on NSAIDs secondary to Eliquis Iron deficiency anemia-done today, check occult blood Hfhrmrapgxt-fmomkkrztm-ddxgklze normal Hypomagnesemia-continue with current treatment plan Peripheral edema-patient not wearing STEVENSON hose, will give dose of IV Lasix this morning Observation status: PT to work with patient today.
--- NOTE | 2024-01-21 09:09 | CT_ITS ---
[address] [address] Patient Name: JACKSON IQBAL MRN: [id number] date: 1945 Sex: M Assigned Patient Location: [place] Current Patient Location: [place] Accession/Order Number: [id number] Exam Date: 01/21/2024 09:30 Report Date: 01/21/2024 10:35 At the request of: NEO CARRERA Procedure: CT lumbar spine wo con EXAM: CT lumbar spine wo con HISTORY: left leg radiculopathy COMPARISON: None. TECHNIQUE: Dose reduction techniques were achieved by using automated exposure control and/or adjustment of mA and/or kV according to patient size and/or use of iterative reconstruction technique.CT of the lumbar spine without contrast. FINDINGS: Mild levoscoliotic curvature at the lumbar spine centered at L3. Moderate to advanced degeneration at L1-L2 through L5-S1. Multilevel posterior disc osteophyte complexes. T11-T12: Mild to moderate disc degeneration. Posterior disc osteophyte complex. Left neural foramen is open. Right moderate neural foraminal narrowing. T12-L1: Mild disc degeneration. Mild broad-based posterior disc bulge. Mild spinal canal narrowing. Moderate to advanced facet joint arthropathy. L1-L2: Intervertebral disc degeneration. Central posterior disc osteophyte complex. Moderate spinal canal narrowing. Advanced facet joint arthropathy. Bilateral moderate neural foraminal narrowing. L2-L3: Moderate disc degeneration. Moderate to severe spinal canal stenosis. Posterior disc osteophyte complex/posterior disc extrusion. Advanced facet joint arthropathy. Moderate left neural foraminal narrowing. Moderate right neural foraminal narrowing. L3-L4: Intervertebral disc degeneration. Broad-based posterior disc osteophyte complex. Mild spinal canal narrowing. Moderate to advanced facet joint arthropathy. Left mild neural foraminal narrowing. Right moderate neural foraminal narrowing. L4-L5: Moderate disc degeneration. Broad-based posterior disc bulge. No spinal canal stenosis. Bilateral moderate neural foraminal narrowing. Moderate to advanced facet joint arthropathy. L5-S1: Moderate disc degeneration. Posterior disc osteophyte complex causing anterior thecal sac compression. No spinal canal stenosis. Bilateral moderate neural foraminal narrowing. Moderate facet joint arthropathy. Moderate sacroiliac joint degeneration. Atherosclerotic calcification of the abdominal aorta. Cholelithiasis. CT/CT lumbar spine wo con IMPRESSION: 1. No acute fracture or dislocation. 2. Multilevel degenerative findings of the lumbar spine. 3. Moderate to severe spinal canal stenosis at L2-L3. 4. Other degenerative findings as described. Electronically authenticated by: LANCE LANCASTER Date: 01/21/2024 10:35
[2024-01-21] MEDS: METHYLPREDNISOLONE SOD SUCC PF 125 MG/2 ML VIAL IVP ×3 (09:46→20:15)
[2024-01-21] MEDS: ORPHENADRINE 60 MG/ 2 ML VIAL IV ×2 (09:46→20:15)
[2024-01-21] MEDS: FUROSEMIDE 40 MG/4 ML VIAL IVP (09:46)
[2024-01-21] MEDS: ATORVASTATIN CALCIUM 40 MG TABLET 80 MG PO (20:16)
--- NOTE | 2024-01-21 22:02 | PC.NURSE ---
RN assisted patient to bedside commode. While laying in bed, pt refused to move his left leg to sit on the edge of the bed. However, once he was assisted to the edge of the bed the pt was able to move the leg, stand, and place weight on the left leg while also taking steps toward the commode. Pt does not complain of pain at this time.
[2024-01-22] VITALS (14 sets, daily range): BP systolic 121–158; BP diastolic 52–82; PULSE 41–73; TEMP 36.4–37.4; O2SAT 92–99; BMI 32.4
[2024-01-22] MEDS: METHYLPREDNISOLONE SOD SUCC PF 125 MG/2 ML VIAL IVP ×4 (03:31→20:55)
[2024-01-22 04:58] LABS: Hematocrit 36.4 % (42.0-54.0); Hemoglobin 11.4 g/dL (14.0-18.0); Immature Granulocytes Abs Auto 0.04 10^3/uL (0.00-0.03); Immature Granulocytes Pct Auto 0.4 % (0.0-0.5); Lymphocytes Absolute Auto 0.5 10^3/uL (1.2-3.8); Lymphocytes Percent Auto 5.4 % (20.5-60.0); Mean Corpuscular HGB Conc 31.3 g/dL (29.9-35.2); Mean Corpuscular Hemoglobin 30.6 pg (25.9-34.0); Mean Corpuscular Volume 97.6 fL (80.0-94.0); Mean Platelet Volume 10.5 fL (9.5-13.5); Monocytes Absolute Auto 0.1 10^3/uL (0.3-0.8); Monocytes Percent Auto 0.9 % (1.7-12.0); Neutrophils Absolute Auto 8.7 10^3/uL (1.4-6.5); Neutrophils Percent Auto 93.3 % (43.0-75.0); Platelet Count 211 10^3/uL (150-450); Red Blood Count 3.73 10^6/uL (4.70-6.10); Red Cell Distribution Width 12.9 % (11.0-15.0); White Blood Count 9.3 10^3/uL (4.0-11.0)
[2024-01-22 05:07] LABS: Anion Gap 15.7; BUN Creatinine Ratio 24.3; Calcium 9.6 mg/dL (8.5-10.1); Carbon Dioxide 22.8 mmol/L (21.0-32.0); Chloride 109 mmol/L (98-107); Estimated GFR (African America >60 (>=60); Estimated GFR (Non-African Ame >60 (>=60); Glucose 148 mg/dL (74-106); Potassium 4.5 mmol/L (3.5-5.1); Sodium 143 mmol/L (136-145)
[2024-01-22 05:12] LABS: Magnesium 2.3 mg/dL (1.8-2.4)
--- NOTE | 2024-01-22 08:02 | P.PN_ITS ---
Progress Note: Subjective Subjective Interval history: Patient noted a little bit better movement in left leg Exam Constitutional Vital Signs, click to edit/add: Last Vital Signs Temp 97.6 F 01/22/24 03:53 Pulse 58 L 01/22/24 07:51 Resp 16 01/22/24 03:53 BP 158/82 H 01/22/24 03:53 Pulse Ox 97 01/22/24 05:10 O2 Del Method Room Air 01/22/24 05:10 Documenting provider has reviewed patient's vital signs: yes Common normals: apparent distress (Mild painful distress) [facility] Common normals: normocephalic Chest Common normals: inspection of chest normal Respiratory Common normals: normal respiratory effort, no retractions, no use of accessory muscles and clear to auscultation bilaterally Cardio Common normals: regular rate, regular rhythm and no murmurs GI Common normals: Normal to inspection, nondistended, normoactive bowel sounds present Extremity Common normals: abnormal to inspection (1+ edema bilateral lower extremities - some better) Neuro Sensorium/orientation: awake, alert, oriented to person, oriented to place and oriented to time Other: Weakness in left leg compared to right, see physical therapy notes Progress Note: Objective Labs Labs: Short CBC 01/22/24 Range/Units 04:20 WBC 9.3 (4.0-11.0) 10^3/uL Hgb 11.4 L (14.0-18.0) g/dL Hct 36.4 L (42.0-54.0) % Plt Count 211 (150-450) 10^3/uL BMP 01/22/24 04:20 Sodium 143 Potassium 4.5 Chloride 109 H Carbon Dioxide 22.8 BUN 25.0 H Creatinine 1.03 Glucose 148 H Calcium 9.6 Progress Note: A&P Assessment and Plan (1) Inability to walk: Plan Patient with left leg pain and weakness-pain is better, just more still the weakness. Nurses noted better range of motion as well, will see what physical therapy evaluation is today, hopefully steroids yesterday improve things, patient still continued rehab patient safety Iron deficiency anemia-done today, check occult blood Qkoozmjxonl-fznewnthuv-grhqaqty normal Hypomagnesemia-continue with current treatment plan Peripheral edema-patient not wearing STEVENSON hose, some better Observation status: PT to work with patient today.
[2024-01-22] MEDS: APIXABAN 5 MG TABLET PO ×2 (08:57→20:55)
[2024-01-22] MEDS: POTASSIUM CHLORIDE 10 MEQ ER TABLET 20 MEQ PO ×2 (08:57→20:55)
[2024-01-22] MEDS: MAGNESIUM OXIDE 400 MG TABLET PO ×2 (08:57→20:55)
--- NOTE | 2024-01-22 09:05 | CM.NOTE ---
Emailed [facility] Sprague at [facility] for new referral after speaking with pt regarding PT recommendations. Pt's first choice was the [facility] and 2nd choice is [facility]. Spoke with Dr. Guold also for update.
[2024-01-22] MEDS: FUROSEMIDE 40 MG/4 ML VIAL IVP (09:23)
[2024-01-22] MEDS: ORPHENADRINE 60 MG/ 2 ML VIAL IV ×2 (09:23→20:55)
--- NOTE | 2024-01-22 10:50 | SWNOTE1 ---
Case management sent referral to [facility]. Pt would like to go there skilled.
--- NOTE | 2024-01-22 11:09 | PT.DAILY ---
Physical Therapy Daily Note PT Daily Note/Assess Start: 01/22/24 11:05 Freq: Status: Active Protocol: Document 01/22/24 11:05 HUMBLE (Rec: 01/22/24 11:09 HUMBLE [id number]) Physical Therapy Daily Note/Assessment Time In/Time Out Time In 10:30 Time Out 10:45 Pain In Pain N/A Pain Out Pain N/A Subjective Subjective Pt using commode upon arrival. Agrees to allow INVENTORY CONTROL ANALYST to assist with transfer back to chair. Therapeutic Exercise Time Therapeutic Exercise Minutes (minutes) 5 Therapeutic Exercise Units 0 Therapeutic Exercise Treatment Therapeutic Exercise Treatment Seated bilat LE strengthening ex complete 10x ea Therapeutic Activity Time Therapeutic Activity Minutes (minutes) 8 Therapeutic Activity Units 1 Therapeutic Activity Treatment Chair Transfer Ability Contact Guard Assist Therapeutic Activity Comments Sit>stand from BS commode CGA with increased time needed. Pt amb 4' to BS chair with RW, CGA with short step length. Pt takes seated rest in BS chair . Completes seated LE strengthening ex while in BS chair. Sit>stand to RW and amb 20' CGA to other side of bed - needs seated rest break. Sit >stand to RW and amb another 20' CGA. Pt demonstrates slow whitney with shortened step length. Remains in BS chair upon completion with call light in reach and needs met. Total Physical Therapy Time Total Therapy Minutes 13 Total Physical Therapy Units 1 Summary Daily Note Summary Less assistance needed with amb today but less endurance/ tolerance with gait. L hip pain increased with weight bearing to 7/10.
--- NOTE | 2024-01-22 13:02 | CM.NOTE ---
Medicare Outpatient Observation Notice discussed with pt, pt verbalizes understanding and signs paper. Original given to pt and copy placed in pt's chart.
--- NOTE | 2024-01-22 13:03 | SWNOTE1 ---
Pt has decided on [facility]. SW emailed referral to Alma at [facility]. Referral sent to [facility]. Referral included face sheet, ED note, H&P, provider notes, case management report, wound consult, nursing notes, diagnostic imaging, med list, and PT/OT notes.
--- NOTE | 2024-01-22 15:21 | SWNOTE1 ---
Precert has been started to [facility].
--- NOTE | 2024-01-22 16:21 | SWNOTE1 ---
Medicare Outpatient Observation Notice reviewed and discussed with patient. Pt. verbalized understanding and signed the form. Original given to patient and copy placed in patient?s chart.
[2024-01-22] MEDS: ATORVASTATIN CALCIUM 40 MG TABLET 80 MG PO (20:55)
[2024-01-23] MEDS: METHYLPREDNISOLONE SOD SUCC PF 125 MG/2 ML VIAL IVP (02:57)
[2024-01-23 03:02] VITALS: BP 155/81; PULSE 54; TEMP 36.6; O2SAT 90
[2024-01-23 05:20] LABS: Basophils Percent Auto 0.1 % (0.2-2.0); Hematocrit 35.7 % (42.0-54.0); Immature Granulocytes Abs Auto 0.07 10^3/uL (0.00-0.03); Immature Granulocytes Pct Auto 0.5 % (0.0-0.5); Lymphocytes Absolute Auto 0.5 10^3/uL (1.2-3.8); Lymphocytes Percent Auto 3.6 % (20.5-60.0); Mean Corpuscular HGB Conc 30.8 g/dL (29.9-35.2); Mean Corpuscular Hemoglobin 30.2 pg (25.9-34.0); Mean Corpuscular Volume 98.1 fL (80.0-94.0); Mean Platelet Volume 10.7 fL (9.5-13.5); Monocytes Absolute Auto 0.2 10^3/uL (0.3-0.8); Monocytes Percent Auto 1.5 % (1.7-12.0); Neutrophils Absolute Auto 12.4 10^3/uL (1.4-6.5); Neutrophils Percent Auto 94.3 % (43.0-75.0); Platelet Count 214 10^3/uL (150-450); Red Blood Count 3.64 10^6/uL (4.70-6.10); Red Cell Distribution Width 12.9 % (11.0-15.0); White Blood Count 13.2 10^3/uL (4.0-11.0)
[2024-01-23 05:48] LABS: Anion Gap 14.2; BUN Creatinine Ratio 27.6; Calcium 9.6 mg/dL (8.5-10.1); Carbon Dioxide 24.6 mmol/L (21.0-32.0); Chloride 107 mmol/L (98-107); Estimated GFR (African America >60 (>=60); Estimated GFR (Non-African Ame >60 (>=60); Glucose 128 mg/dL (74-106); Magnesium 2.3 mg/dL (1.8-2.4); Potassium 4.8 mmol/L (3.5-5.1); Sodium 141 mmol/L (136-145)
--- NOTE | 2024-01-23 07:56 | PM.PN ---
Progress Note: Subjective Subjective Interval history: Patient noted a little bit better movement in left leg Exam Constitutional Vital Signs, click to edit/add: Last Vital Signs Temp 97.8 F 01/23/24 03:02 Pulse 54 L 01/23/24 03:02 Resp 16 01/23/24 03:02 BP 155/81 H 01/23/24 03:02 Pulse Ox 90 L 01/23/24 03:02 O2 Del Method Room Air 01/23/24 03:02 Progress Note: Objective Labs Labs: Short CBC 01/23/24 Range/Units 04:49 WBC 13.2 H (4.0-11.0) 10^3/uL Hgb 11.0 L (14.0-18.0) g/dL Hct 35.7 L (42.0-54.0) % Plt Count 214 (150-450) 10^3/uL BMP 01/23/24 04:49 Sodium 141 Potassium 4.8 Chloride 107 Carbon Dioxide 24.6 BUN 29.0 H Creatinine 1.05 Glucose 128 H Calcium 9.6 Progress Note: A&P Assessment and Plan (1) Inability to walk:
[2024-01-23] MEDS: APIXABAN 5 MG TABLET PO (08:09)
[2024-01-23] MEDS: ORPHENADRINE 60 MG/ 2 ML VIAL IV (08:09)
[2024-01-23] MEDS: POTASSIUM CHLORIDE 10 MEQ ER TABLET 20 MEQ PO (08:09)
[2024-01-23] MEDS: FUROSEMIDE 40 MG/4 ML VIAL IVP (08:09)
[2024-01-23] MEDS: MAGNESIUM OXIDE 400 MG TABLET PO (08:09)
[2024-01-23] MEDS: CARVEDILOL 6.25 MG TABLET PO (08:09)
[2024-01-23 08:13] VITALS: BP 128/68; PULSE 53; TEMP 36.7; O2SAT 93
--- NOTE | 2024-01-23 08:23 | CM.NOTE ---
Charlette from [facility] called , pt approved for skilled. Messaged Dr. Gould with update. Updated pt.
--- NOTE | 2024-01-23 08:25 | P.DS_ITS ---
DS: Providers Provider Date of admission: 01/19/24 19:33 Primary care physician: Javier Gould MD Consults: 01/19/24 Consult to Dietitian Routine Reason For Exam: weight loss Reason for consultation: weight loss 01/20/24 09:00 Occupational Therapy Eval and Treat Routine Reason for consultation: weakness, fall Has provider been notified: No Physical Therapy Eval and Treat Routine Reason for consultation: weakness, fall Has provider been notified: No 01/22/24 07:58 Consult to Field Logistics Coordinator Routine Reason for consult:: Fpc Other reason:: willows DS: Diagnosis Discharge Diagnosis (1) Inability to walk: Plan Patient with left leg pain and weakness-pain is better, just more still the weakness. Nurses noted better range of motion as well, will see what physical therapy evaluation is today, hopefully steroids yesterday improve things, patient still continued rehab patient safety Iron deficiency anemia-done today, check occult blood Dnsexhtuqns-cfzspclayd-jvcamyof normal Hypomagnesemia-continue with current treatment plan Peripheral edema-patient not wearing STEVENSON hose, some better DS: Summary Hospital Course Hospital Course: Patient was admitted with intractable low back pain with left leg weakness. He has had several falls at home. This was prior to him coming into the emergency room. CT scan does show significant lumbar disc disease, his therapy with medic ations and physical therapy did seem to improve his left leg weakness he is an excellent rehab candidate. Not sure he is a great candidate for surgical intervention, likely needs pain management referral wants done with rehab. Otherwise was medically stable. He did have little bit of elevation and with his blood pressure so we did add blood pressure medication. Initially his magnesium was low repeat that was normal and potassium was low initially we supplemented that and that has returned to normal. Medications see list. I will follow patient after rehab. Time Spent with Patient Time attestation: Total time spent providing and/or coordinating discharge services: Time spent: greater than 30 minutes Exam Constitutional Vital Signs, click to edit/add: Last Vital Signs Temp 98.0 F 01/23/24 08:13 Pulse 53 L 01/23/24 08:13 Resp 16 01/23/24 08:13 BP 128/68 01/23/24 08:13 Pulse Ox 93 L 01/23/24 08:13 O2 Del Method Room Air 01/23/24 08:13 Documenting provider has reviewed patient's vital signs: yes Common normals: apparent distress (Mild painful distress) [facility] Common normals: normocephalic Chest Common normals: inspection of chest normal Respiratory Common normals: normal respiratory effort, no retractions, no use of accessory muscles and clear to auscultation bilaterally Cardio Common normals: regular rate, regular rhythm and no murmurs GI Common normals: Normal to inspection, nondistended, normoactive bowel sounds present Extremity Common normals: abnormal to inspection (1+ edema bilateral lower extremities - some better) Neuro Sensorium/orientation: awake, alert, oriented to person, oriented to place and oriented to time Other: Weakness in left leg compared to right, see physical therapy notes DS: Data Data Completed and Pending Labs on day of discharge: Labs from last 24 hours 01/23/24 04:49 WBC 13.2 H RBC 3.64 L Hgb 11.0 L Hct 35.7 L MCV 98.1 H MCH 30.2 MCHC 30.8 RDW 12.9 Plt Count 214 MPV 10.7 Neut % (Auto) 94.3 H Lymph % (Auto) 3.6 L [place] % (Auto) 1.5 L Eos % (Auto) 0.0 L Baso % (Auto) 0.1 L Neut # (Auto) 12.4 H Lymph # (Auto) 0.5 L [place] # (Auto) 0.2 L Eos # (Auto) 0.0 Baso # (Auto) 0.0 Abs Immat Gran (auto) 0.07 H Imm/Tot Granulo (auto) 0.5 Sodium 141 Potassium 4.8 Chloride 107 Carbon Dioxide 24.6 Anion Gap 14.2 BUN 29.0 H Creatinine 1.05 Est GFR ( Amer) >60 Est GFR (Non-Af Amer) >60 BUN/Creatinine Ratio 27.6 Glucose 128 H Calcium 9.6 Magnesium 2.3 Discharge Plan Discharge Disposition: Xfer SNF Condition: Fair Discharge Medications: New carvedilol 6.25 mg Tablet 6.25 mg PO BID Qty: 60 11RF Continued furosemide 40 mg tablet 40 mg PO Q12H atorvastatin 80 mg tablet 80 mg PO QPM acetaminophen [Tylenol Extra Strength] 500 mg Tablet 1,000 mg PO Q6H PRN (Reason: Pain Scale 1-3) Qty: 120 0RF Eliquis 5 mg tablet 5 mg PO Q12H Print Language: Bengali Shuttle Car Operator/Furniture Removalist Instructions: Discharge to [facility] skilled Forms: Portal Instructions
--- NOTE | 2024-01-23 08:41 | CM.NOTE ---
Emailed CRF, discharge medication list, and discharge summary to [facility].
--- NOTE | 2024-01-23 10:12 | SWNOTE1 ---
dc med rec was sent to [facility] this morning. HENS is complete. [facility] called and set up trips and they will be here between 11:15-11:45. SW notified nursing and [facility], SW to let family know as well.
== END 2024-01-23 11:40 ==
LOC: ER 19:15 → MS 19:37
PROVIDERS: Registered Nurse; Admitting Provider Family Medicine; Emergency Provider Emergency Medicine; PCP Family Medicine; Visit Provider Family Medicine
DX: R53.1 Weakness (principal); M79.605 Pain in left leg; R26.2 Difficulty in walking, not elsewhere classified; D50.9 Iron deficiency anemia, unspecified; E87.6 Hypokalemia; E83.42 Hypomagnesemia; R60.9 Edema, unspecified; M51.9 Unspecified thoracic, thoracolumbar and lumbosacral intervertebral disc disorder; E66.9 Obesity, unspecified; I11.0 Hypertensive heart disease with heart failure; I25.10 Atherosclerotic heart disease of native coronary artery without angina pectoris; I48.91 Unspecified atrial fibrillation; I50.30 Unspecified diastolic (congestive) heart failure; Z91.81 History of falling; Z68.32 Body mass index [BMI] 32.0-32.9, adult; C61 Malignant neoplasm of prostate; Z86.010 Personal history of colon polyps; Z79.01 Long term (current) use of anticoagulants; Z79.899 Other long term (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 therapy
CPT/HCPCS: 36415; 70450; 71045; 72131; 73502; 73562; 80048; 80053; 81001; 83735; 84100; 84484; 85025; 93005; 94761; 96361; 96365; 96366; 96375; 96376; 97162; 97165; 97530; 99285; G0328; G0378; J2919; J3480

== ENCOUNTER 2024-01-29 05:01 | Outpatient (REF) | payer MEDICARE, SELFPAY ==
--- OUTSIDE RECORDS SUMMARY | 2024-01-29 05:05 | XMS_ITS | CCD ---
Author Organization [facility] Care Team Providers Care Tar Boiler Name Role Phone PEBBLES WOODARD Primary Care Unavailable DEANDRE ., DR LARSON Admitting Unavailable HOY ., DR LARSON Consulting Unavailable HOY ., DR LARSON Attending Unavailable REQUEST, DR ALLEN LISTED Admitting Unavaila ble REQUEST, DR ALLEN LISTED Attending Unavaila ble HOY ., DR LARSON Primary Care Unavailable HOY ., DR LARSON Consulting Unavailable REQUEST, NONE LISTED Admitting Unavaila ble REQUEST, DR ALLEN LISTED Attending Unavaila ble REGINAFELICIA VILLALBA Primary Care Unavailable REGINAFELICIA VILLALBA Consulting Unavailable REQUEST, NONE LISTED Admitting Unavaila ble REQUEST, DR ALLEN LISTED Consulting Unavaila ble REQUEST, DR ALLEN LISTED Attending Unavaila ble PEBBLES WOODARD Primary Care Unavailable HOY ., DR LARSON Primary Care Unavailable MISC, DR ALBERTO Admitting Unavailable MISC, DR ALBERTO Consulting Unavailable MISC, DR ALBERTO Attending Unavailable Neo Gould Primary Care Physician Zhang DENISE Attending Unavailable HoyZackeryNeo Referring Unavailable NILLZhang Attending Unavailable Neo Gould Referring Unavailable Ghislaine Morales Attending Unavailable Zhang DENISE Attending Unavailable Neo Gould Referring Unavailable NILLZhang Attending Unavailable Zhang DENISE Attending Unavailable SHILOH HESTER Attending Unavailable JONATHAN HARRISON Attending Unavailable ANATOLIY NOVAK Attending Unavailable Allergies Allergy Classification Reported Allergen(s) Allergy Type Date of Onset Reaction(s) Facility (1 source) No Known Medication Allergies; 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: [No Known Medication Allergies] Propensity to adverse reactions (disorder) [facility] Repository Medications Current Medications Medication Drug [...] Active Problems Problem Classification Problem Date Documented Da te Episodic/Chronic Cancer of prostate (1 source) History of malignant neoplasm of prostate 03-15-2023 Episodic Cardiac dysrhythmias (4 sources) Atrial fibrillation; 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: [Premature beats] Onset: 06-01-2023 03-15-2023 Chronic Complications of surgical procedures or medical care (2 sources) Hypotension due to drugs; 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: [Hypotension due to drugs] Onset: 11-27-2023 Episodic Congestive heart failure; nonhypertensive (1 source) Diastolic heart failure 03-15-2023 Chronic Coronary atherosclerosis and other heart disease (3 sources) Coronary arteriosclerosis; 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: [Atherosclerotic heart disease of [place] coronary artery without angina pectoris] Onset: 12-13-2023 03-15-2023 Chronic Disorders of lipid metabolism (4 sources) Hyperlipidemia, unspecified; 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: [HYPERLIPIDEMIA UNSPECIFIED] Onset: 06-29-2022 Chronic Essential hypertension (3 sources) Hypertensive disorder; 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: [Essential (primary) hypertension] Onset: 05-11-2023 03-15-2023 Chronic Genitourinary symptoms and ill-defined conditions (2 sources) Gross hematuria; 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: [Gross hematuria] Onset: 11-27-2023 Episodic Osteoarthritis (4 sources) Primary generalized (osteo)arthritis; 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: [PRIMARY GENERALIZED OSTEOARTHRITIS] Onset: 12-10-2022 Chronic Other aftercare (1 source) Other penitentiary (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 therapy; 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: [OTH USP CURRENT DRUG THERAPY] Onset: 12-14-2022 Episodic Other aftercare (2 sources) Long-term current use of anticoagulant; 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] Onset: 03-28-2023 Episodic Other and unspecified benign neoplasm (3 sources) History of polyp of colon; 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: [Personal history of colonic polyps] Onset: 03-28-2023 Episodic Other connective tissue disease (2 sources) Repeated falls; 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: [Repeated falls] Onset: 11-27-2023 Episodic Other nutritional; endocrine; and metabolic disorders (1 source) Body mass index 30+ - obesity 03-28-2023 Chronic Other nutritional; endocrine; and metabolic disorders (1 source) Morbid obesity 03-28-2023 Chronic Other nutritional; endocrine; and metabolic disorders (1 source) Obesity 03-15-2023 Chronic Residual codes; unclassified (1 source) Edema of lower extremity 03-15-2023 Episodic Spondylosis; intervertebral disc disorders; other back problems (1 source) Cervical disc disorder 03-15-2023 Chronic Unclassified (2 sources) Longstanding persistent atrial fibrillation; 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: [Longstanding persistent atrial fibrillation] Onset: 11-27-2023 Past or Other Problems Problem Classification Problem Date Documented Da te Episodic/Chronic Cardiac dysrhythmias (2 sources) Bradycardia, unspecified; 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: [Bradycardia, unspecified] Onset: 06-01-2023 Episodic Diabetes mellitus without complication (1 source) Other abnormal glucose; 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: [OTHER ABNORMAL GLUCOSE] Onset: 07-03-2022 Episodic Other lower respiratory disease (2 sources) Other forms of dyspnea; 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: [Other forms of dyspnea] Onset: 06-01-2023 Episodic Other screening for suspected conditions (not mental disorders or infectious disease) (1 source) Encounter for screening for malignant neoplasm of prostate; 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: [ENC SCREEN MALIG NEOPLASM PROSTATE] Onset: 07-03-2022 Episodic Residual codes; unclassified (2 sources) Localized edema; 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: [Localized edema] Onset: 06-01-2023 Episodic Results Test Name Value Interpretation Reference Range Facility Office Visiton 12-13-2023 Follow-up visit [id number] Oscar Cox 1945 M Date Provider Department Center 12/13/2023 Jayesh-SHILOH HESTER ABILIO [facility] Family History Family history unknown: Yes Level of Service:13693 DC OFFICE/OUTPATIENT ESTABLISHED MOD MDM 30 MIN Normal [facility] Office Visiton 11-27-2023 Follow-up visit [id number] Ocsar Cox 1945 M Date Provider Department Center 11/27/2023 Kael-JONATHAN HARRISON [facility]ILIO [facility] Family History Family history unknown: Yes Level of Service:61134 DC OFFICE/OUTPATIENT ESTABLISHED MOD MDM 30 MIN Normal [facility] Intermediate Recordson 07-04 Intermediate Records [id number] CD:127 Normal [facility] 37on 06-01-2023 37 -Reduce Lisinopril t o 10 mg once a day -Will get an ultrasound of your heart -Continue Lasix 40 mg twice a day -Follow-up with Dr. Harrison to discuss watchman -Start Eliquis 2.5 mg twice a day and monitor for more bleeding Normal [facility] Office Visiton 06-01-2023 Follow-up visit [id number] BrookeOscar Morton 1945 Date Provider Department Center 06/01/2023 ANATOLIY JEFFERSON ABILIO Favian Parada Family History Family history unknown: Yes Level of Service:14815 DC OFFICE/OUTPATIENT ESTABLISHED MOD MDM 30-39 MIN Reason for Visit and Comments: Follow-up [509616] - Concerns due to increased swelling bilateral legs and also having blood in urine - Eliquis is being held at the moment Normal [facility] Orders Onlyon 06-01-2023 Orders Only [id number] Oscar Cox 1945 Date Provider Department Center 06/01/2023 ELVIN CADENA ABILIO Favian Tal Family History Family history unknown: Yes [facility] Reminderson 05-10-2023 Reminders - From: Pennie Bose LPN To: GSN - Clinical; Sent: 05/10/2023 10:13:27 EDT Show up: 03/27/2028 07:00:00 EDT Subject: colonoscopy recall Due Date/Time: 04/26/2028 07:00:00 EDT Reminder/Recall Patient due for surveillance colonoscopy 04/26/2028. [facility] Pathology Noteon 05-03-2023 Pathology Note [id number] 0CD:127 [facility] Outside Colonoscopyon 2022 Outside Colonoscopy [id number] 0CD:127 [facility] Pre-Certification Formon Pre-Certification Form [id number]. 00CD:127 [facility] Consent for Procedure/Surger yon 03-29-2023 Consent for Procedure/Surgery [id number] 0CD:127 [facility] Ambulatory Visit Summaryon 0 03-28-2023 Ambulatory Visit Summary OSCAR COX :1945 Visit Date:03/28/2023 Ambulatory Visit Instructions Your Diagnosis Personal history of colonic polyps Chronic anticoagulation Your Care Team Attending Physician - HOWIE LOPEZ, Zhang Jensen Primary Care Physician - Neo Gould MD This Is Your Medications List Contact prescribing [...] history of colonic polyps Premature beats Normal [facility] Physician Referralon 023 Physician Referral [id number] 0CD:127 Normal [facility] CBC AUTO DIFFon 03-01-2023 BASO # 0.0 103/ul Normal 0.0-0.1 [facility] Comment on above: Performed By: #### D ATCBC #### [facility] [address] [place] [address] Dr. Power Covarrubias Basophils/100 WBC (Bld) 0.7 % Normal 0.2-2.0 [facility] Comment on above: Performed By: #### D ATCBC #### [facility] [address] [place] [address] Dr. Power Covarrubias EO # 0.1 103/ul Normal 0.0-0.7 [facility] Comment on above: Performed By: #### D ATCBC #### [facility] [address] [place] [address] Dr. Power Covarrubias Eosinophils/100 WBC (Bld) 1.8 % Normal 0.9-7.0 [facility] Comment on above: Performed By: #### D ATCBC #### [facility] [address] [place] [address] Dr. Power Covarrubias Erythrocyte distribution width (RBC) [Ratio] 13.3 % Normal 11.0-15.0 [facility] Comment on above: Performed By: #### D ATCBC #### [facility] [address] [place] [address] Dr. Power Covarrubias Hematocrit (Bld) [Volume fraction] 40.7 % Critically low 42.0-54.0 [facility] Comment on above: Performed By: #### D ATCBC #### [facility] [address] [place] [address] Dr. Power Covarrubias Hemoglobin (Bld) [Mass/Vol] 12.9 g/dL Critically low 14.0-18.0 [facility] Comment on above: Performed By: #### D ATCBC #### [facility] [address] [place] [address] Dr. Power Covarrubias IG # 0.01 10e3/ul Normal 0.00-0.03 [facility] Comment on above: Performed By: #### D ATCBC #### [facility] [address] [place] [address] Dr. Power Covarrubias IG % 0.2 % Normal 0.0-0.5 [facility] Comment on above: Performed By: #### D ATCBC #### [facility] [address] [place] [address] Dr. Power Covarrubias LYMPH # 0.7 103/ul Critically low 1.2-3.8 [facility] Comment on above: Performed By: #### D ATCBC #### [facility] [address] [place] [address] Dr. Power Covarrubias Lymphocytes/100 WBC (Bld) 16.3 % Critically low 20.5-60.0 [facility] Comment on above: Performed By: #### D ATCBC #### [facility] [address] [place] [address] Dr. Power Covarrubias MCH (RBC) [Entitic mass] 29.6 pg Normal 25.9-34.0 [facility] Comment on above: Performed By: #### D ATCBC #### [facility] [address] [place] [address] Dr. Power Covarrubias MCHC (RBC) [Mass/Vol] 31.7 g/dL Normal 29.9-35.2 [facility] Comment on above: Performed By: #### D ATCBC #### [facility] [address] [place] [address] Dr. Power Covarrubias MCV (RBC) [Entitic vol] 93.3 fL Normal 80.0-94.0 [facility] Comment on above: Performed By: #### D ATCBC #### [facility] [address] [place] [address] Dr. Power Covarrubias MONO # 0.3 103/ul Normal 0.3-0.8 [facility] Comment on above: Performed By: #### D ATCBC #### [facility] [address] [place] [address] Dr. Power Covarrubias Monocytes/100 WBC (Bld) 7.5 % Normal 1.7-12.0 [facility] Comment on above: Performed By: #### D ATCBC #### [facility] [address] [address] [address] Power Covarrubias NEUT # 3.4 103/ul Normal 1.4-6.5 [facility] Comment on above: Performed By: #### D ATCBC #### [facility] [address] [address] [address] Power Covarrubias Neutrophils/100 WBC (Bld) 73.5 % Normal 43.0-75.0 [facility] Comment on above: Performed By: #### D ATCBC #### [facility] [address] [place] [address] Dr. Power Covarrubias Platelet mean volume (Bld) [Entitic vol] 9.9 fL Normal 9.5-13.5 [facility] Comment on above: Performed By: #### D ATCBC #### [facility] [address] [place] [address] Dr. Power Covarrubias PLT 198 103/ul Normal 150-450 [facility] Comment on above: Performed By: #### D ATCBC #### [facility] [address] [place] [address] Dr. Power Covarrubias RBC 4.36 106/ul Critically low 4.70-6.10 [facility] Comment on above: Performed By: #### D ATCBC #### [facility] [address] [place] [address] Dr. Power Covarrubias WBC 4.6 103/ul Normal 4.0-11.0 [facility] Comment on above: Performed By: #### D ATCBC #### [facility] [address] [place] [address] Dr. Power Covarrubias BRE - LIPID PROFILEon 2022 CHOL-HDL RATIO NORM SEE BELOW Normal [facility] Comment on above: Result Comment: 3.3 - 4.4 LOW RISK 4.4 - 7.1 AVERAGE RISK 7.1 - 11.0 MODERATE RISK >11.0 HIGH RISK Performed By: #### D ATLIPI, DATPSA, DATBMP #### [facility] [address] [address] [address] Power Covarrubias Cholesterol.total/Ch olesterol in HDL [Mass ratio] 2.2 {ratio} Normal [facility] Comment on above: Performed By: #### D ATLIPI, DATPSA, DATBMP #### [facility] [address] [address] [address] Power Covarrubias BRE- BMP WITH LIPIDon 2022 Anion gap [Moles/Vol] 12.8 mmol/L Normal [facility] Comment on above: Performed By: #### D ATLIPI, DATPSA, DATBMP #### [facility] [address] [place] [address] Dr. Power Covarrubias Calcium [Mass/Vol] 9.3 mg/dL Normal 8.5-10.1 [facility] Comment on above: Performed By: #### D ATLIPI, DATPSA, DATBMP #### [facility] [address] [address] [address] Power Covarrubias Chloride [Moles/Vol] 107 mmol/L Normal 98-107 [facility] Comment on above: Performed By: #### D ATLIPI, DATPSA, DATBMP #### [facility] [address] [place] [address] Dr. Power Covarrubias Cholesterol [Mass/Vol] 123 mg/dL Normal <=200 [facility] Comment on above: Performed By: #### D ATLIPI, DATPSA, DATBMP #### [facility] [address] [address] [address] Power Covarrubias Cholesterol in HDL [Mass/Vol] 56 mg/dL Normal 40-60 [facility] Comment on above: Performed By: #### D ATLIPI, DATPSA, DATBMP #### [facility] [address] [address] [address] Power Covarrubias Cholesterol in LDL [Mass/Vol] 52.0 mg/dL Normal [facility] Comment on above: Performed By: #### D ATLIPI, DATPSA, DATBMP #### [facility] [address] [address] [address] Power Covarrubias CO2 [Moles/Vol] 28.7 mmol/L Normal 21.0-32.0 [facility] Comment on above: Performed By: #### D ATLIPI, DATPSA, DATBMP #### [facility] [address] [address] [address] Power Covarrubias Creatinine [Mass/Vol] 0.93 mg/dL Normal 0.70-1.30 [facility] Comment on above: Performed By: #### D ATLIPI, DATPSA, DATBMP #### [facility] [address] [place] [address] Dr. Power Covarrubias EGFR-AF HONDURAN >60 Normal >=60 [facility] Comment on above: Performed By: #### D ATLIPI, DATPSA, DATBMP #### [facility] [address] [address] [address] Power Covarrubias EGFR-NON AF HONDURAN >60 Normal >=60 [facility] Comment on above: Performed By: #### D ATLIPI, DATPSA, DATBMP #### [facility] [address] [address] [address] Power Covarrubias Glucose [Mass/Vol] 97 mg/dL Normal 74-106 [facility] Comment on above: Performed By: #### D ATLIPI, DATPSA, DATBMP #### [facility] [address] [place] [address] Dr. Power Covarrubias HDL NORMAL > or = 60 mg/dl - LO W CARDIOVASCULAR RISK <40 mg/dl - HIGH CARDIOVASCULAR RISK Normal [facility] Comment on above: Performed By: #### D ATLIPI, DATPSA, DATBMP #### [facility] [address] [place] [address] Dr. Power Covarrubias LDL CALC NORMAL SEE BELOW Normal [facility] Comment on above: Result Comment: <100 mg/dl OPTIMAL 100 - 129 mg/dl NEAR OR ABOVE OPTIMAL 130 - 159 mg/dl BORDERLINE HIGH 160 - 189 mg/dl HIGH >190 mg/dl VERY HIGH Performed By: #### D ATLIPI, DATPSA, DATBMP #### [facility] [address] [address] [address] Power Covarrubias Potassium [Moles/Vol] 3.5 mmol/L Normal 3.5-5.1 [facility] Comment on above: Performed By: #### D ATLIPI, DATPSA, DATBMP #### [facility] [address] [address] [address] Pwoer Covarrubias Sodium [Moles/Vol] 145 mmol/L Normal 136-145 [facility] Comment on above: Performed By: #### D ATLIPI, DATPSA, DATBMP #### [facility] [address] [place] [address] Dr. Power Covarrubias Triglyceride [Mass/Vol] 75 mg/dL Normal <=150 [facility] Comment on above: Performed By: #### D ATLIPI, DATPSA, DATBMP #### [facility] [address] [address] [address] Power Covarrubias Urea nitrogen [Mass/Vol] 11.0 mg/dL Normal 7.0-18.0 [facility] Comment on above: Performed By: #### D ATLIPI, DATPSA, DATBMP #### [facility] [address] [address] [address] Power Covarrubias Urea nitrogen/Creatinine [Mass ratio] 11.8 mg/mg Normal [facility] Comment on above: Performed By: #### D ATLIPI, DATPSA, DATBMP #### [facility] [address] [address] [address] Power Covarrubias VLDL CALC 15.0 mg/dL Normal [facility] Comment on above: Performed By: #### D ATLIPI, DATPSA, DATBMP #### [facility] [address] [place] [address] Dr. Power Covarrubias GLYCOHEMOGLOBIN A1Con 2022 ADA RECOMMENDATION SEE BELOW Normal [facility] Comment on above: Result Comment: ADA RECOMMENDED LIMIT 4.0 - 6.0 ADA THERAPEUTIC TARGET < 7.0 ACTION SUGGESTED > 7.0 Performed By: #### D ATLIPI, DATPSA, DATBMP #### [facility] [address] [place] [address] Dr. Power Covarrubias Glucose [Mass/Vol] 105 mg/dL Normal [facility] Comment on above: Performed By: #### D ATLIPI, DATPSA, DATBMP #### [facility] [address] [place] [address] Dr. Power Covarrubias HbA1c (Bld) [Mass fraction] 5.3 % Normal 4.5-6.2 [facility] Comment on above: Performed By: #### D ATLIPI, DATPSA, DATBMP #### [facility] [address] [place] [address] Dr. Power Covarrubias CBC AUTO DIFFon 12-10-2022 BASO # 0.0 103/ul Normal 0.0-0.1 [facility] Comment on above: Performed By: #### D ATLIPI, DATPSA, DATBMP #### [facility] [address] [place] [address] Dr. Power Covarrubias Basophils/100 WBC (Bld) 0.4 % Normal 0.2-2.0 [facility] Comment on above: Performed By: #### D ATLIPI, DATPSA, DATBMP #### [facility] [address] [place] [address] Dr. Power Covarrubias EO # 0.2 103/ul Normal 0.0-0.7 [facility] Comment on above: Performed By: #### D ATLIPI, DATPSA, DATBMP #### [facility] [address] [place] [address] Dr. Power Covarrubias Eosinophils/100 WBC (Bld) 3.6 % Normal 0.9-7.0 [facility] Comment on above: Performed By: #### D ATLIPI, DATPSA, DATBMP #### [facility] [address] [place] [address] Dr. Power Covarrubias Erythrocyte distribution width (RBC) [Ratio] 13.5 % Normal 11.0-15.0 [facility] Comment on above: Performed By: #### D ATLIPI, DATPSA, DATBMP #### [facility] [address] [place] [address] Dr. Power Covarrubias Hematocrit (Bld) [Volume fraction] 37.5 % Critically low 42.0-54.0 [facility] Comment on above: Performed By: #### D ATLIPI, DATPSA, DATBMP #### [facility] [address] [place] [address] Dr. Power Covarrubias Hemoglobin (Bld) [Mass/Vol] 12.0 g/dL Critically low 14.0-18.0 [facility] Comment on above: Performed By: #### D ATLIPI, DATPSA, DATBMP #### [facility] [address] [place] [address] Dr. Power Covarrubias IG # 0.02 10e3/ul Normal 0.00-0.03 [facility] Comment on above: Performed By: #### D ATLIPI, DATPSA, DATBMP #### [facility] [address] [place] [address] Dr. Power Covarrubias IG % 0.4 % Normal 0.0-0.5 [facility] Comment on above: Performed By: #### D ATLIPI, DATPSA, DATBMP #### [facility] [address] [place] [address] Dr. Power Covarrubias LYMPH # 0.9 103/ul Critically low 1.2-3.8 [facility] Comment on above: Performed By: #### D ATLIPI, DATPSA, DATBMP #### [facility] [address] [place] [address] Dr. Power Covarrubias Lymphocytes/100 WBC (Bld) 17.7 % Critically low 20.5-60.0 [facility] Comment on above: Performed By: #### D ATLIPI, DATPSA, DATBMP #### [facility] [address] [place] [address] Dr. Power Covarrubias MANUAL DIFF REQ NO Normal [facility] Comment on above: Performed By: #### D ATLIPI, DATPSA, DATBMP #### [facility] [address] [place] [address] Dr. Power Covarrubias MCH (RBC) [Entitic mass] 29.7 pg Normal 25.9-34.0 [facility] Comment on above: Performed By: #### D ATLIPI, DATPSA, DATBMP #### [facility] [address] [place] [address] Dr. Power Covarrubias MCHC (RBC) [Mass/Vol] 32.0 g/dL Normal 29.9-35.2 [facility] Comment on above: Performed By: #### D ATLIPI, DATPSA, DATBMP #### [facility] [address] [place] [address] Dr. Power Covarrubias MCV (RBC) [Entitic vol] 92.8 fL Normal 80.0-94.0 [facility] Comment on above: Performed By: #### D ATLIPI, DATPSA, DATBMP #### [facility] [address] [place] [address] Dr. Power Covarrubias MONO # 0.6 103/ul Normal 0.3-0.8 [facility] Comment on above: Performed By: #### D ATLIPI, DATPSA, DATBMP #### [facility] [address] [place] [address] Dr. Power Covarrubias Monocytes/100 WBC (Bld) 11.1 % Normal 1.7-12.0 [facility] Comment on above: Performed By: #### D ATLIPI, DATPSA, DATBMP #### [facility] [address] [place] [address] Dr. Power Covarrubias NEUT # 3.6 103/ul Normal 1.4-6.5 [facility] Comment on above: Performed By: #### D ATLIPI, DATPSA, DATBMP #### [facility] [address] [address] [address] Power Covarrubias Neutrophils/100 WBC (Bld) 66.8 % Normal 43.0-75.0 [facility] Comment on above: Performed By: #### D ATLIPI, DATPSA, DATBMP #### [facility] [address] [place] [address] Dr. Power Covarrubias Platelet mean volume (Bld) [Entitic vol] 9.8 fL Normal 9.5-13.5 [facility] Comment on above: Performed By: #### D ATLIPI, DATPSA, DATBMP #### [facility] [address] [place] [address] Dr. Power Covarrubias PLT 199 103/ul Normal 150-450 [facility] Comment on above: Performed By: #### D ATLIPI, DATPSA, DATBMP #### [facility] [address] [place] [address] Dr. Power Covarrubias RBC 4.04 106/ul Critically low 4.70-6.10 [facility] Comment on above: Performed By: #### D ATLIPI, DATPSA, DATBMP #### [facility] [address] [place] [address] Dr. Power Covarrubias WBC 5.3 103/ul Normal 4.0-11.0 [facility] Comment on above: Performed By: #### D ATLIPI, DATPSA, DATBMP #### [facility] [address] [place] [address] Dr. Power Covarrubias PROF 14(COMP METB)on 023 Albumin [Mass/Vol] 3.3 g/dL Critically low 3.4-5.0 [facility] Comment on above: Performed By: #### C MP #### [facility] [address] [place] [address] Dr. Power Covarrubias Albumin/Globulin [Mass ratio] 0.9 {ratio} Normal [facility] Comment on above: Performed By: #### C MP #### [facility] [address] [place] [address] Dr. Power Covarrubias ALP [Catalytic activity/Vol] 99 U/L Normal 46-116 [facility] Comment on above: Performed By: #### C MP #### [facility] [address] [address] [address] Power Covarrubias ALT [Catalytic activity/Vol] 17 U/L Normal 16-63 [facility] Comment on above: Performed By: #### C MP #### [facility] [address] [address] [address] Power Covarrubias Anion gap [Moles/Vol] 11.6 mmol/L Normal [facility] Comment on above: Performed By: #### C MP #### [facility] [address] [address] [address] Power Covarrubias AST [Catalytic activity/Vol] 15 U/L Normal 15-37 [facility] Comment on above: Performed By: #### C MP #### [facility] [address] [place] [address] Dr. Power Covarrubias Bilirubin [Mass/Vol] 0.6 mg/dL Normal 0.2-1.0 [facility] Comment on above: Performed By: #### C MP #### [facility] [address] [address] [address] Power Covarrubias Calcium [Mass/Vol] 9.4 mg/dL Normal 8.5-10.1 [facility] Comment on above: Performed By: #### C MP #### [facility] [address] [address] [address] Power Covarrubias Chloride [Moles/Vol] 107 mmol/L Normal 98-107 [facility] Comment on above: Performed By: #### C MP #### [facility] [address] [address] [address] Power Covarrubias CO2 [Moles/Vol] 29.2 mmol/L Normal 21.0-32.0 [facility] Comment on above: Performed By: #### C MP #### [facility] [address] [address] [address] Power Covarrubias Creatinine [Mass/Vol] 0.87 mg/dL Normal 0.70-1.30 [facility] Comment on above: Performed By: #### C MP #### [facility] [address] [address] [address] Power Covarrubias EGFR-AF HONDURAN >60 Normal >=60 [facility] Comment on above: Performed By: #### C MP #### [facility] [address] [address] [address] Power Covarrubias EGFR-NON AF HONDURAN >60 Normal >=60 [facility] Comment on above: Performed By: #### C MP #### [facility] [address] [address] [address] Power Covarrubias Globulin (S) [Mass/Vol] 3.6 g/dL Normal [facility] Comment on above: Performed By: #### C MP #### [facility] [address] [address] [address] Power Covarrubias Glucose [Mass/Vol] 107 mg/dL Critically high 74-106 [facility] Comment on above: Performed By: #### C MP #### [facility] [address] [address] [address] Power Covarrubias Potassium [Moles/Vol] 3.8 mmol/L Normal 3.5-5.1 [facility] Comment on above: Performed By: #### C MP #### [facility] [address] [address] [address] Power Covarrubias Protein [Mass/Vol] 6.9 g/dL Normal 6.4-8.2 [facility] Comment on above: Performed By: #### C MP #### [facility] [address] [address] [address] Power Covarrubias Sodium [Moles/Vol] 144 mmol/L Normal 136-145 [facility] Comment on above: Performed By: #### C MP #### [facility] [address] [address] [address] Power Covarrubias Urea nitrogen [Mass/Vol] 12.0 mg/dL Normal 7.0-18.0 [facility] Comment on above: Performed By: #### C MP #### [facility] [address] [place] [address] Dr. Power Covarrubias Urea nitrogen/Creatinine [Mass ratio] 13.8 mg/mg Normal [facility] Comment on above: Performed By: #### C MP #### [facility] [address] [place] [address] Dr. Power Covarrubias CBC AUTO DIFFon 08-31-2022 BASO # 0.0 103/ul Normal 0.0-0.1 [facility] Comment on above: Performed By: #### D ATLIPI, DATPSA, DATBMP #### [facility] [address] [place] [address] Dr. Power Covarrubias Basophils/100 WBC (Bld) 0.7 % Normal 0.2-2.0 [facility] Comment on above: Performed By: #### D ATLIPI, DATPSA, DATBMP #### [facility] [address] [place] [address] Dr. Power Covarrubias EO # 0.2 103/ul Normal 0.0-0.7 [facility] Comment on above: Performed By: #### D ATLIPI, DATPSA, DATBMP #### [facility] [address] [place] [address] Dr. Power Covarrubias Eosinophils/100 WBC (Bld) 3.5 % Normal 0.9-7.0 [facility] Comment on above: Performed By: #### D ATLIPI, DATPSA, DATBMP #### [facility] [address] [place] [address] Dr. Power Covarrubias Erythrocyte distribution width (RBC) [Ratio] 13.2 % Normal 11.0-15.0 [facility] Comment on above: Performed By: #### D ATLIPI, DATPSA, DATBMP #### [facility] [address] [place] [address] Dr. Power Covarrubias Hematocrit (Bld) [Volume fraction] 39.3 % Critically low 42.0-54.0 [facility] Comment on above: Performed By: #### D ATLIPI, DATPSA, DATBMP #### [facility] [address] [place] [address] Dr. Power Covarrubias Hemoglobin (Bld) [Mass/Vol] 12.9 g/dL Critically low 14.0-18.0 [facility] Comment on above: Performed By: #### D ATLIPI, DATPSA, DATBMP #### [facility] [address] [place] [address] Dr. Power Covarrubias IG # 0.02 10e3/ul Normal 0.00-0.03 [facility] Comment on above: Performed By: #### D ATLIPI, DATPSA, DATBMP #### [facility] [address] [place] [address] Dr. Power Covarrubias IG % 0.4 % Normal 0.0-0.5 [facility] Comment on above: Performed By: #### D ATLIPI, DATPSA, DATBMP #### [facility] [address] [place] [address] Dr. Power Covarrubias LYMPH # 0.9 103/ul Critically low 1.2-3.8 [facility] Comment on above: Performed By: #### D ATLIPI, DATPSA, DATBMP #### [facility] [address] [place] [address] Dr. Power Covarrubias Lymphocytes/100 WBC (Bld) 16.4 % Critically low 20.5-60.0 [facility] Comment on above: Performed By: #### D ATLIPI, DATPSA, DATBMP #### [facility] [address] [place] [address] Dr. Power Covarrubias MCH (RBC) [Entitic mass] 30.7 pg Normal 25.9-34.0 [facility] Comment on above: Performed By: #### D ATLIPI, DATPSA, DATBMP #### [facility] [address] [place] [address] Dr. Power Covarrubias MCHC (RBC) [Mass/Vol] 32.8 g/dL Normal 29.9-35.2 [facility] Comment on above: Performed By: #### D ATLIPI, DATPSA, DATBMP #### [facility] [address] [place] [address] Dr. Power Covarrubias MCV (RBC) [Entitic vol] 93.6 fL Normal 80.0-94.0 [facility] Comment on above: Performed By: #### D ATLIPI, DATPSA, DATBMP #### [facility] [address] [place] [address] Dr. Power Covarrubias MONO # 0.5 103/ul Normal 0.3-0.8 [facility] Comment on above: Performed By: #### D ATLIPI, DATPSA, DATBMP #### [facility] [address] [place] [address] Dr. Power Covarrubias Monocytes/100 WBC (Bld) 9.0 % Normal 1.7-12.0 [facility] Comment on above: Performed By: #### D ATLIPI, DATPSA, DATBMP #### [facility] [address] [place] [address] Dr. Power Covarrubias NEUT # 3.8 103/ul Normal 1.4-6.5 [facility] Comment on above: Performed By: #### D ATLIPI, DATPSA, DATBMP #### [facility] [address] [place] [address] Dr. Power Covarrubias Neutrophils/100 WBC (Bld) 70.0 % Normal 43.0-75.0 [facility] Comment on above: Performed By: #### D ATLIPI, DATPSA, DATBMP #### [facility] [address] [place] [address] Dr. Power Covarrubias Platelet mean volume (Bld) [Entitic vol] 9.9 fL Normal 9.5-13.5 [facility] Comment on above: Performed By: #### D ATLIPI, DATPSA, DATBMP #### [facility] [address] [place] [address] Dr. Power Covarrubias PLT 195 103/ul Normal 150-450 [facility] Comment on above: Performed By: #### D ATLIPI, DATPSA, DATBMP #### [facility] [address] [address] [address] Power Covarrubias RBC 4.20 106/ul Critically low 4.70-6.10 [facility] Comment on above: Performed By: #### D ATLIPI, DATPSA, DATBMP #### [facility] [address] [address] [address] Power Covarrubias WBC 5.4 103/ul Normal 4.0-11.0 [facility] Comment on above: Performed By: #### D ATLIPI, DATPSA, DATBMP #### [facility] [address] [address] [address] Power Covarrubias BRE- BMP WITH LIPIDon 2021 Anion gap [Moles/Vol] 10.8 mmol/L Normal [facility] Comment on above: Performed By: #### D ATLIPI, DATPSA, DATBMP #### [facility] [address] [address] [address] Power Covarrubias Calcium [Mass/Vol] 9.3 mg/dL Normal 8.5-10.1 [facility] Comment on above: Performed By: #### D ATLIPI, DATPSA, DATBMP #### [facility] [address] [place] [address] Dr. Power Covarrubias Chloride [Moles/Vol] 105 mmol/L Normal 98-107 [facility] Comment on above: Performed By: #### D ATLIPI, DATPSA, DATBMP #### [facility] [address] [address] [address] Power Covarrubias Cholesterol [Mass/Vol] 123 mg/dL Normal <=200 [facility] Comment on above: Performed By: #### D ATLIPI, DATPSA, DATBMP #### [facility] [address] [place] [address] Dr. Power Covarrubias Cholesterol in HDL [Mass/Vol] 51 mg/dL Normal 40-60 [facility] Comment on above: Performed By: #### D ATLIPI, DATPSA, DATBMP #### [facility] [address] [address] [address] Power Covarrubias Cholesterol in LDL [Mass/Vol] 56.0 mg/dL Normal [facility] Comment on above: Performed By: #### D ATLIPI, DATPSA, DATBMP #### [facility] [address] [address] [address] Power Covarrubias CO2 [Moles/Vol] 28.2 mmol/L Normal 21.0-32.0 [facility] Comment on above: Performed By: #### D ATLIPI, DATPSA, DATBMP #### [facility] [address] [place] [address] Dr. Power Covarrubias Creatinine [Mass/Vol] 0.86 mg/dL Normal 0.70-1.30 [facility] Comment on above: Performed By: #### D ATLIPI, DATPSA, DATBMP #### [facility] [address] [place] [address] Dr. Power Covarrubias EGFR-AF HONDURAN >60 Normal >=60 [facility] Comment on above: Performed By: #### D ATLIPI, DATPSA, DATBMP #### [facility] [address] [place] [address] Dr. Power Covarrubias EGFR-NON AF HONDURAN >60 Normal >=60 [facility] Comment on above: Performed By: #### D ATLIPI, DATPSA, DATBMP #### [facility] [address] [place] [address] Dr. Power Covarrubias Glucose [Mass/Vol] 90 mg/dL Normal 74-106 [facility] Comment on above: Performed By: #### D ATLIPI, DATPSA, DATBMP #### [facility] [address] [place] [address] Dr. Power Covarrubias HDL NORMAL > or = 60 mg/dl - LO W CARDIOVASCULAR RISK <40 mg/dl - HIGH CARDIOVASCULAR RISK Normal [facility] Comment on above: Performed By: #### D ATLIPI, DATPSA, DATBMP #### [facility] [address] [place], [place] [id number] Dr. Power Covarrubias LDL CALC NORMAL SEE BELOW Normal [facility] Comment on above: Result Comment: <100 mg/dl OPTIMAL 100 - 129 mg/dl NEAR OR ABOVE OPTIMAL 130 - 159 mg/dl BORDERLINE HIGH 160 - 189 mg/dl HIGH >190 mg/dl VERY HIGH Performed By: #### D ATLIPI, DATPSA, DATBMP #### [facility] [address] [address] [address] Power Covarrubias Potassium [Moles/Vol] 4.0 mmol/L Normal 3.5-5.1 [facility] Comment on above: Performed By: #### D ATLIPI, DATPSA, DATBMP #### [facility] [address] [address] [address] Power Covarrubias Sodium [Moles/Vol] 140 mmol/L Normal 136-145 [facility] Comment on above: Performed By: #### D ATLIPI, DATPSA, DATBMP #### [facility] [address] [address] [address] Power Covarrubias Triglyceride [Mass/Vol] 80 mg/dL Normal <=150 [facility] Comment on above: Performed By: #### D ATLIPI, DATPSA, DATBMP #### [facility] [address] [place] [address] Dr. Power Covarrubias Urea nitrogen [Mass/Vol] 14.0 mg/dL Normal 7.0-18.0 [facility] Comment on above: Performed By: #### D ATLIPI, DATPSA, DATBMP #### [facility] [address] [address] [address] Power Covarrubias Urea nitrogen/Creatinine [Mass ratio] 16.3 mg/mg Normal [facility] Comment on above: Performed By: #### D ATLIPI, DATPSA, DATBMP #### [facility] [address] [place] [address] Dr. Power Covarrubias VLDL CALC 16.0 mg/dL Normal [facility] Comment on above: Performed By: #### D ATLIPI, DATPSA, DATBMP #### [facility] [address] [place] [address] Dr. Power Covarrubias OCC BLD IMMUNO SCREENon 06-16 OCCULT BLOOD Negative Normal NEGATIVE [facility] Comment on above: Performed By: #### O BSCRN #### [facility] [address] [place] [address] Dr. Power Covarrubias T4 [facility]on 06-30-2022 T4 [Mass/Vol] 9.2 ug/dL Normal 4.5-12.0 [facility] Comment on above: Performed By: #### D ATLIPI, DATPSA, DATBMP #### [facility] [address] [place] [address] Dr. Power Covarrubias CBC AUTO DIFFon 06-29-2022 BASO # 0.0 103/ul Normal 0.0-0.1 [facility] Comment on above: Performed By: #### D ATLIPI, DATPSA, DATBMP #### [facility] [address] [place] [address] Dr. Power Covarrubias Basophils/100 WBC (Bld) 0.5 % Normal 0.2-2.0 [facility] Comment on above: Performed By: #### D ATLIPI, DATPSA, DATBMP #### [facility] [address] [place] [address] Dr. Power Covarrubias EO # 0.1 103/ul Normal 0.0-0.7 [facility] Comment on above: Performed By: #### D ATLIPI, DATPSA, DATBMP #### [facility] [address] [place] [address] Dr. Power Covarrubias Eosinophils/100 WBC (Bld) 2.5 % Normal 0.9-7.0 [facility] Comment on above: Performed By: #### D ATLIPI, DATPSA, DATBMP #### [facility] [address] [place] [address] Dr. Power Covarrubias Erythrocyte distribution width (RBC) [Ratio] 13.4 % Normal 11.0-15.0 [facility] Comment on above: Performed By: #### D ATLIPI, DATPSA, DATBMP #### [facility] [address] [place] [address] Dr. Power Covarrubias Hematocrit (Bld) [Volume fraction] 38.1 % Critically low 42.0-54.0 [facility] Comment on above: Performed By: #### D ATLIPI, DATPSA, DATBMP #### [facility] [address] [place] [address] Dr. Power Covarrubias Hemoglobin (Bld) [Mass/Vol] 12.0 g/dL Critically low 14.0-18.0 [facility] Comment on above: Performed By: #### D ATLIPI, DATPSA, DATBMP #### [facility] [address] [place] [address] Dr. Power Covarrubias IG # 0.01 10e3/ul Normal 0.00-0.03 [facility] Comment on above: Performed By: #### D ATLIPI, DATPSA, DATBMP #### [facility] [address] [place] [address] Dr. Power Covarrubias IG % 0.2 % Normal 0.0-0.5 [facility] Comment on above: Performed By: #### D ATLIPI, DATPSA, DATBMP #### [facility] [address] [place] [address] Dr. Power Covarrubias LYMPH # 0.9 103/ul Critically low 1.2-3.8 [facility] Comment on above: Performed By: #### D ATLIPI, DATPSA, DATBMP #### [facility] [address] [place] [address] Dr. Power Covarrubias Lymphocytes/100 WBC (Bld) 15.5 % Critically low 20.5-60.0 [facility] Comment on above: Performed By: #### D ATLIPI, DATPSA, DATBMP #### [facility] [address] [place] [address] Dr. Power Covarrubias MANUAL DIFF REQ NO Normal [facility] Comment on above: Performed By: #### D ATLIPI, DATPSA, DATBMP #### [facility] [address] [place] [address] Dr. Power Covarrubias MCH (RBC) [Entitic mass] 30.2 pg Normal 25.9-34.0 [facility] Comment on above: Performed By: #### D ATLIPI, DATPSA, DATBMP #### [facility] [address] [place] [address] Dr. Power Covarrubias MCHC (RBC) [Mass/Vol] 31.5 g/dL Normal 29.9-35.2 [facility] Comment on above: Performed By: #### D ATLIPI, DATPSA, DATBMP #### [facility] [address] [place] [address] Dr. Power Covarrubias MCV (RBC) [Entitic vol] 96.0 fL Critically high 80.0-94.0 [facility] Comment on above: Performed By: #### D ATLIPI, DATPSA, DATBMP #### [facility] [address] [place] [address] Dr. Power Covarrubias MONO # 0.5 103/ul Normal 0.3-0.8 [facility] Comment on above: Performed By: #### D ATLIPI, DATPSA, DATBMP #### [facility] [address] [place] [address] Dr. Power Covarrubias Monocytes/100 WBC (Bld) 9.5 % Normal 1.7-12.0 [facility] Comment on above: Performed By: #### D ATLIPI, DATPSA, DATBMP #### [facility] [address] [place] [address] Dr. Power Covarrubias NEUT # 4.1 103/ul Normal 1.4-6.5 [facility] Comment on above: Performed By: #### D ATLIPI, DATPSA, DATBMP #### [facility] [address] [place] [address] Dr. Power Covarrubias Neutrophils/100 WBC (Bld) 71.8 % Normal 43.0-75.0 [facility] Comment on above: Performed By: #### D ATLIPI, DATPSA, DATBMP #### [facility] [address] [address] [address] Power Covarrubias Platelet mean volume (Bld) [Entitic vol] 9.8 fL Normal 9.5-13.5 [facility] Comment on above: Performed By: #### D ATLIPI, DATPSA, DATBMP #### [facility] [address] [address] [address] Power Covarrubias PLT 212 103/ul Normal 150-450 [facility] Comment on above: Performed By: #### D ATLIPI, DATPSA, DATBMP #### [facility] [address] [address] [address] Power Covarrubias RBC 3.97 106/ul Critically low 4.70-6.10 [facility] Comment on above: Performed By: #### D ATLIPI, DATPSA, DATBMP #### [facility] [address] [address] [address] oPwer Covarrubias WBC 5.7 103/ul Normal 4.0-11.0 [facility] Comment on above: Performed By: #### D ATLIPI, DATPSA, DATBMP #### [facility] [address] [place] [address] Dr. Power Covarrubias FREE T3on 06-29-2022 FREE T3 2.73 pg/mlL Normal 2.18-3.98 [facility] Comment on above: Performed By: #### D ATLIPI, DATPSA, DATBMP #### [facility] [address] [place] [address] Dr. Power Covarrubias GLYCOHEMOGLOBIN A1Con 2021 ADA RECOMMENDATION SEE BELOW Normal [facility] Comment on above: Result Comment: ADA RECOMMENDED LIMIT 4.0 - 6.0 ADA THERAPEUTIC TARGET < 7.0 ACTION SUGGESTED > 7.0 Performed By: #### A 1C #### [facility] [address] [address] [address] Power Covarrubias Glucose [Mass/Vol] 114 mg/dL Normal [facility] Comment on above: Performed By: #### A 1C #### [facility] [address] [address] [address] Power Covarrubias HbA1c (Bld) [Mass fraction] 5.6 % Normal 4.5-6.2 [facility] Comment on above: Performed By: #### A 1C #### [facility] [address] [address] [address] Power Covarrubias LIPID PROFILEon 06-29-2022 CHOL-HDL RATIO NORM SEE BELOW Normal [facility] Comment on above: Result Comment: 3.3 - 4.4 LOW RISK 4.4 - 7.1 AVERAGE RISK 7.1 - 11.0 MODERATE RISK >11.0 HIGH RISK Performed By: #### D ATLIPI, DATPSA, DATBMP #### [facility] [address] [address] [address] Power Covarrubias Cholesterol [Mass/Vol] 110 mg/dL Normal <=200 [facility] Comment on above: Performed By: #### D ATLIPI, DATPSA, DATBMP #### [facility] [address] [address] [address] Power Covarrubias Cholesterol in HDL [Mass/Vol] 47 mg/dL Normal 40-60 [facility] Comment on above: Performed By: #### D ATLIPI, DATPSA, DATBMP #### [facility] [address] [address] [address] Power Covarrubias Cholesterol in LDL [Mass/Vol] 51.2 mg/dL Normal [facility] Comment on above: Performed By: #### D ATLIPI, DATPSA, DATBMP #### [facility] [address] [address] [address] Power Covarrubias Cholesterol.total/Ch olesterol in HDL [Mass ratio] 2.3 {ratio} Normal [facility] Comment on above: Performed By: #### D ATLIPI, DATPSA, DATBMP #### [facility] [address] [address] [address] Power Covarrubias HDL NORMAL > or = 60 mg/dl - LO W CARDIOVASCULAR RISK <40 mg/dl - HIGH CARDIOVASCULAR RISK Normal [facility] Comment on above: Performed By: #### D ATLIPI, DATPSA, DATBMP #### [facility] [address] [place] [address] Dr. Power Covarrubias LDL CALC NORMAL SEE BELOW Normal [facility] Comment on above: Result Comment: <100 mg/dl OPTIMAL 100 - 129 mg/dl NEAR OR ABOVE OPTIMAL 130 - 159 mg/dl BORDERLINE HIGH 160 - 189 mg/dl HIGH >190 mg/dl VERY HIGH Performed By: #### D ATLIPI, DATPSA, DATBMP #### [facility] [address] [address] [address] Power Covarrubias Triglyceride [Mass/Vol] 59 mg/dL Normal <=150 [facility] Comment on above: Performed By: #### D ATLIPI, DATPSA, DATBMP #### [facility] [address] [place] [address] Dr. Power Covarrubias VLDL CALC 11.8 mg/dL Normal [facility] Comment on above: Performed By: #### D ATLIPI, DATPSA, DATBMP #### [facility] [address] [place] [address] Dr. Power Covarrubias PROF 14(COMP METB)on 022 Albumin [Mass/Vol] 3.3 g/dL Critically low 3.4-5.0 [facility] Comment on above: Performed By: #### D ATLIPI, DATPSA, DATBMP #### [facility] [address] [place] [address] Dr. Power Covarrubias Albumin/Globulin [Mass ratio] 0.9 {ratio} Normal [facility] Comment on above: Performed By: #### D ATLIPI, DATPSA, DATBMP #### [facility] [address] [place] [address] Dr. Power Covarrubias ALP [Catalytic activity/Vol] 100 U/L Normal 46-116 [facility] Comment on above: Performed By: #### D ATLIPI, DATPSA, DATBMP #### [facility] [address] [address] [address] Power Covarrubias ALT [Catalytic activity/Vol] 16 U/L Normal 16-63 [facility] Comment on above: Performed By: #### D ATLIPI, DATPSA, DATBMP #### [facility] [address] [address] [address] Power Covarrubias Anion gap [Moles/Vol] 11.4 mmol/L Normal [facility] Comment on above: Performed By: #### D ATLIPI, DATPSA, DATBMP #### [facility] [address] [address] [address] Power Covarrubias AST [Catalytic activity/Vol] 14 U/L Critically low 15-37 [facility] Comment on above: Performed By: #### D ATLIPI, DATPSA, DATBMP #### [facility] [address] [place] [address] Dr. Power Covarrubias Bilirubin [Mass/Vol] 0.7 mg/dL Normal 0.2-1.0 [facility] Comment on above: Performed By: #### D ATLIPI, DATPSA, DATBMP #### [facility] [address] [address] [address] Power Covarrubias Calcium [Mass/Vol] 9.0 mg/dL Normal 8.5-10.1 [facility] Comment on above: Performed By: #### D ATLIPI, DATPSA, DATBMP #### [facility] [address] [address] [address] Power Covarrubias Chloride [Moles/Vol] 107 mmol/L Normal 98-107 [facility] Comment on above: Performed By: #### D ATLIPI, DATPSA, DATBMP #### [facility] [address] [address] [address] Power Covarrubias CO2 [Moles/Vol] 28.5 mmol/L Normal 21.0-32.0 [facility] Comment on above: Performed By: #### D ATLIPI, DATPSA, DATBMP #### [facility] [address] [place] [address] Dr. Power Covarrubias Creatinine [Mass/Vol] 0.87 mg/dL Normal 0.70-1.30 [facility] Comment on above: Performed By: #### D ATLIPI, DATPSA, DATBMP #### [facility] [address] [place] [address] Dr. Power Covarrubias EGFR-AF HONDURAN >60 Normal >=60 [facility] Comment on above: Performed By: #### D ATLIPI, DATPSA, DATBMP #### [facility] [address] [place] [address] Dr. Power Covarrubias EGFR-NON AF HONDURAN >60 Normal >=60 [facility] Comment on above: Performed By: #### D ATLIPI, DATPSA, DATBMP #### [facility] [address] [place] [address] Dr. Power Covarrubias Globulin (S) [Mass/Vol] 3.6 g/dL Normal [facility] Comment on above: Performed By: #### D ATLIPI, DATPSA, DATBMP #### [facility] [address] [place] [address] Dr. Power Covarrubias Glucose [Mass/Vol] 90 mg/dL Normal 74-106 [facility] Comment on above: Performed By: #### D ATLIPI, DATPSA, DATBMP #### [facility] [address] [place] [address] Dr. Power Covarrubias Potassium [Moles/Vol] 3.9 mmol/L Normal 3.5-5.1 [facility] Comment on above: Performed By: #### D ATLIPI, DATPSA, DATBMP #### [facility] [address] [place] [address] Dr. Power Covarrubias Protein [Mass/Vol] 6.9 g/dL Normal 6.4-8.2 [facility] Comment on above: Performed By: #### D ATLIPI, DATPSA, DATBMP #### [facility] [address] [place] [address] Dr. Power Covarrubias Sodium [Moles/Vol] 143 mmol/L Normal 136-145 [facility] Comment on above: Performed By: #### D ATLMACK DATPSA, DATBMP #### [facility] [address] [place] [address] Dr. Power Covarrubias Urea nitrogen [Mass/Vol] 13.0 mg/dL Normal 7.0-18.0 [facility] Comment on above: Performed By: #### D ATLIPI DATPSA, DATBMP #### [facility] [address] [place] [address] Dr. Power Covarrubias Urea nitrogen/Creatinine [Mass ratio] 14.9 mg/mg Normal [facility] Comment on above: Performed By: #### D ATLMACK DATPSA, DATBMP #### [facility] [address] [place] [address] Dr. Power Covarrubias TSHon 06-29-2022 TSH 2.585 uIU/mL Normal 0.358-3.740 [facility] Comment on above: Performed By: #### T SH, LIPID, FT3, CMP #### [facility] [address] [place] [address] Dr. Power Covarrubias CBC AUTO DIFFon 04-09-2022 BASO # 0.1 103/ul Normal 0.0-0.1 [facility] Comment on above: Performed By: #### D ATCBC #### [facility] [address] [place] [address] Dr. Power Covarrubias Basophils/100 WBC (Bld) 1.0 % Normal 0.2-2.0 [facility] Comment on above: Performed By: #### D ATCBC #### [facility] [address] [place] [address] Dr. Power Covarrubias EO # 0.2 103/ul Normal 0.0-0.7 [facility] Comment on above: Performed By: #### D ATCBC #### [facility] [address] [place] [address] Dr. Power Covarrubias Eosinophils/100 WBC (Bld) 3.7 % Normal 0.9-7.0 [facility] Comment on above: Performed By: #### D ATCBC #### [facility] [address] [place] [address] Dr. Power Covarrubias Erythrocyte distribution width (RBC) [Ratio] 13.3 % Normal 11.0-15.0 [facility] Comment on above: Performed By: #### D ATCBC #### [facility] [address] [place] [address] Dr. Power Covarrubias Hematocrit (Bld) [Volume fraction] 37.8 % Critically low 42.0-54.0 [facility] Comment on above: Performed By: #### D ATCBC #### [facility] [address] [place] [address] Dr. Power Covarrubias Hemoglobin (Bld) [Mass/Vol] 12.4 g/dL Critically low 14.0-18.0 [facility] Comment on above: Performed By: #### D ATCBC #### [facility] [address] [place] [address] Dr. Power Covarrubias IG # 0.01 10e3/ul Normal 0.00-0.03 [facility] Comment on above: Performed By: #### D ATCBC #### [facility] [address] [place] [address] Dr. Power Covarrubias IG % 0.2 % Normal 0.0-0.5 [facility] Comment on above: Performed By: #### D ATCBC #### [facility] [address] [place] [address] Dr. Power Covarrubias LYMPH # 1.0 103/ul Critically low 1.2-3.8 [facility] Comment on above: Performed By: #### D ATCBC #### [facility] [address] [place] [address] Dr. Power Covarrubias Lymphocytes/100 WBC (Bld) 19.0 % Critically low 20.5-60.0 [facility] Comment on above: Performed By: #### D ATCBC #### [facility] [address] [place] [address] Dr. Power Covarrubias MCH (RBC) [Entitic mass] 30.9 pg Normal 25.9-34.0 [facility] Comment on above: Performed By: #### D ATCBC #### [facility] [address] [place] [address] Dr. Power Covarrubias MCHC (RBC) [Mass/Vol] 32.8 g/dL Normal 29.9-35.2 [facility] Comment on above: Performed By: #### D ATCBC #### [facility] [address] [place] [address] Dr. Power Covarrubias MCV (RBC) [Entitic vol] 94.3 fL Critically high 80.0-94.0 [facility] Comment on above: Performed By: #### D ATCBC #### [facility] [address] [place] [address] Dr. Power Covarrubias MONO # 0.5 103/ul Normal 0.3-0.8 [facility] Comment on above: Performed By: #### D ATCBC #### [facility] [address] [place] [address] Dr. Power Covarrubias Monocytes/100 WBC (Bld) 9.4 % Normal 1.7-12.0 [facility] Comment on above: Performed By: #### D ATCBC #### [facility] [address] [place] [address] Dr. Power Covarrubias NEUT # 3.4 103/ul Normal 1.4-6.5 [facility] Comment on above: Performed By: #### D ATCBC #### [facility] [address] [place] [address] Dr. Power Covarrubias Neutrophils/100 WBC (Bld) 66.7 % Normal 43.0-75.0 [facility] Comment on above: Performed By: #### D ATCBC #### [facility] [address] [place] [address] Dr. Power Covarrubias Platelet mean volume (Bld) [Entitic vol] 9.9 fL Normal 9.5-13.5 [facility] Comment on above: Performed By: #### D ATCBC #### [facility] [address] [address] [address] Power Covarrubias PLT 205 103/ul Normal 150-450 [facility] Comment on above: Performed By: #### D ATCBC #### [facility] [address] [address] [address] Power Covarrubias RBC 4.01 106/ul Critically low 4.70-6.10 [facility] Comment on above: Performed By: #### D ATCBC #### [facility] [address] [address] [address] Power Covarrubias WBC 5.1 103/ul Normal 4.0-11.0 [facility] Comment on above: Performed By: #### D ATCBC #### [facility] [address] [place] [address] Dr. Power Covarrubias BRE- BMP WITH LIPIDon 2021 Anion gap [Moles/Vol] 9.5 mmol/L Normal [facility] Comment on above: Performed By: #### D ATLIPI, DATPSA, DATBMP #### [facility] [address] [place] [address] Dr. Power Covarrubias Calcium [Mass/Vol] 9.0 mg/dL Normal 8.5-10.1 [facility] Comment on above: Performed By: #### D ATLIPI, DATPSA, DATBMP #### [facility] [address] [place] [address] Dr. Power Covarrubias Chloride [Moles/Vol] 108 mmol/L Critically high 98-107 [facility] Comment on above: Performed By: #### D ATLIPI, DATPSA, DATBMP #### [facility] [address] [place] [address] Dr. Power Covarrubias Cholesterol [Mass/Vol] 114 mg/dL Normal <=200 [facility] Comment on above: Performed By: #### D ATLIPI, DATPSA, DATBMP #### [facility] [address] [place] [address] Dr. Power Covarrubias Cholesterol in HDL [Mass/Vol] 49 mg/dL Normal 40-60 [facility] Comment on above: Performed By: #### D ATLIPI, DATPSA, DATBMP #### [facility] [address] [address] [address] Power Covarrubias Cholesterol in LDL [Mass/Vol] 50.4 mg/dL Normal [facility] Comment on above: Performed By: #### D ATLIPI, DATPSA, DATBMP #### [facility] [address] [place] [address] Dr. Power Covarrubias CO2 [Moles/Vol] 28.3 mmol/L Normal 21.0-32.0 [facility] Comment on above: Performed By: #### D ATLIPI, DATPSA, DATBMP #### [facility] [address] [place] [address] Dr. Power Covarrubias Creatinine [Mass/Vol] 0.88 mg/dL Normal 0.70-1.30 [facility] Comment on above: Performed By: #### D ATLIPI, DATPSA, DATBMP #### [facility] [address] [place] [address] Dr. Power Covarrubias EGFR-AF HONDURAN >60 Normal >=60 [facility] Comment on above: Performed By: #### D ATLIPI, DATPSA, DATBMP #### [facility] [address] [place] [address] Dr. Power Covarrubias EGFR-NON AF HONDURAN >60 Normal >=60 [facility] Comment on above: Performed By: #### D ATLIPI, DATPSA, DATBMP #### [facility] [address] [place] [address] Dr. Power Covarrubias Glucose [Mass/Vol] 107 mg/dL Critically high 74-106 [facility] Comment on above: Performed By: #### D ATLIPI, DATPSA, DATBMP #### [facility] [address] [place] [address] Dr. Power Covarrubias HDL NORMAL > or = 60 mg/dl - LO W CARDIOVASCULAR RISK <40 mg/dl - HIGH CARDIOVASCULAR RISK Normal [facility] Comment on above: Performed By: #### D ATLIPI, DATPSA, DATBMP #### [facility] [address] [address] [address] Power Covarrubias LDL CALC NORMAL SEE BELOW Normal [facility] Comment on above: Result Comment: <100 mg/dl OPTIMAL 100 - 129 mg/dl NEAR OR ABOVE OPTIMAL 130 - 159 mg/dl BORDERLINE HIGH 160 - 189 mg/dl HIGH >190 mg/dl VERY HIGH Performed By: #### D ATLIPI, DATPSA, DATBMP #### [facility] [address] [address] [address] Power Covarrubias Potassium [Moles/Vol] 3.8 mmol/L Normal 3.5-5.1 [facility] Comment on above: Performed By: #### D ATLIPI, DATPSA, DATBMP #### [facility] [address] [address] [address] Power Covarrubias Sodium [Moles/Vol] 142 mmol/L Normal 136-145 [facility] Comment on above: Performed By: #### D ATLIPI, DATPSA, DATBMP #### [facility] [address] [address] [address] Power Covarrubias Triglyceride [Mass/Vol] 73 mg/dL Normal <=150 [facility] Comment on above: Performed By: #### D ATLIPI, DATPSA, DATBMP #### [facility] [address] [address] [address] Power Covarrubias Urea nitrogen [Mass/Vol] 12.0 mg/dL Normal 7.0-18.0 [facility] Comment on above: Performed By: #### D ATLIPI, DATPSA, DATBMP #### [facility] [address] [address] [address] Power Covarrubias Urea nitrogen/Creatinine [Mass ratio] 13.6 mg/mg Normal [facility] Comment on above: Performed By: #### D ATLIPI, DATPSA, DATBMP #### [facility] [address] [address] [address] Power Covarrubias VLDL CALC 14.6 mg/dL Normal [facility] Comment on above: Performed By: #### D ATLIPI, DATPSA, DATBMP #### [facility] [address] [place], [place] [address] Dr. Power Covarrubias Cardiovascular Lab Reporton 07-03-2020 Cardiovascular Lab Report [facility] Patient Name: Oscar Cox [facility] MR #: [id number] Physician: Shiloh Hester, Department of M.D. Medicine Service Date: 07/03/2020 Division of Birthdate: 1945 Cardiology Room #: Adult Cardiovascular Services [facility] [address] [facility]. [place], [place] [address] Cardiovascular Laboratory Report FINAL IMPRESSIONS: 1. Hzyn-pw-hynoakab 3-vessel coronary artery disease. 2. Avpk-or-fhrkdrtb left main coronary artery disease that appears [...] Follow up with Dr. Hester in the [facility] in the next 1 to 2 [...] to access the left radial artery. A 6-Lao glide sheath was inserted without difficulty. Resistance [...] Shiloh Hester M.D. Date Dict: 07/03/2020/02:20 P/Shiloh Hestre M.D. Date Trans: 07/03/2020 02:42 P/anibal [id number] cc: Neo Gould M.D. [address] [place] [address] [facility] Vital Signs Date Time Vital Sign Value Performing Clinician Zbigniew stinson 03-28-2023 14:23-0400 Blood Pressure Location Zhang NILL [facility] 03-28-2023 14:23-0400 Diastolic blood pressure 60 mm[Hg] Zhang N[facility] 03-28-2023 14:23-0400 Heart rate 60 /min Zhang NILL [facility] 03-28-2023 14:23-0400 Respiratory rate 16 /min Zhang NILL [facility] 03-28-2023 14:23-0400 Systolic blood pressure 116 mm[Hg] Zhang NILL [facility] Encounters Encounter Date Encounter Type Care Provider Facility Start: 12-13-2023 End: 12-13-2023 ambulatory [facility] Start: 11-27-2023 End: 11-27-2023 ambulatory [facility] Start: 09-13-2023 ambulatory Neo Gould Facility:[facility] [place] Start: 06-15-2023 ambulatory Zhang NILL Facility:[facility] [place] Start: 06-01-2023 End: 06-01-2023 ambulatory [facility] Start: 05-09-2023 ambulatory Zhang R NILL Facility :[facility] [place] Start: 04-26-2023 End: 04-27-2023 ambulatory Zhang R NILL Facility:[id number] Start: 03-28-2023 End: 03-29-2023 ambulatory Zhang R NILL Facility:[facility] [place] Start: 03-28-2023 End: 03-28-2023 Patient encounter procedure Zhang R NILL [facility] Start: 03-03-2023 ambulatory Neo Hoy Facility:[facility] [place] Start: 03-03-2023 End: 03-04-2023 ambulatory Neo Gould Facility:[facility] Start: 03-01-2023 End: 03-02-[address] NONE LISTED REQUEST Facility:[facility] Start: 12-10-2022 End: 12-11-[address] NEO GOULD . Facility:[facility] Start: 08-31-2022 End: 09-01-[address] NONE LISTED REQUEST Facility:[facility] Start: 06-29-2022 End: 06-30-2022 ambulatory PEBBLES WOODARD Facility:[facility] Start: 04-09-2022 End: 04-10-[address] NONE LISTED REQUEST Facility:[facility] Procedures Date Procedure Procedure Detail Performing Clinician Start: 03-01-2023 PSA screening PEBBLES B OES Comment on above: Performed By: #### D ATLIPI, DATPSA, DATBMP #### [facility] [address] [place] [address] Dr. Power Covarrubias Start: 08-31-2022 PSA screening PEBBLES B OES Comment on above: Performed By: #### D ATLIPI, DATPSA, DATBMP #### [facility] [address] [address] [address] Power Covarrubias Start: 06-29-2022 PSA screening PEBBLES B OES Comment on above: Performed By: #### P SASC #### [facility] [address] [address] [address] Power Covarrubias Start: 10-04-2017 Colonoscopy Zhang NG Excision of lumbar intervertebral disc Zhang DENISE Comment on above: L5 Repair of hip Zhang DENISE Immunizations Immunization Date Immunization Notes Care Provider Fa cility 04-29-2021 SARS-CoV-2 (COVID-19 ) mRNA BNT-162b2 vax Zhang DENISE [facility] 04-09-2021 SARS-CoV-2 (COVID-19 ) mRNA BNT-162b2 vax Zhang DENISE [facility] Payers Date Payer Category Payer Unknown [id number] 1958 Self-pay 1958 Unknown [id number] 1945 Unknown [id number] 2.16.84 [id number] 1945 Unknown [id number] 2.16.84 [id number] 1945 Unknown [id number] 2.16.8 [id number] 1945 Unknown [id number] 2.16.8 [id number] 1945 Unknown [id number] 2.16.8 [id number] 1945 Unknown [id number] 2.16.8 [id number] 1945 Unknown [id number] 2.16.8 [id number] 1945 Unknown [id number] 2.16.8 [id number] Unknown [id number] 2.16.84 [id number] Unknown [id number] 2.16.84 [id number] Unknown [id number] 2.16.84 [id number] Social History Date Type Detail Facility Start: 03-28-2023 Tobacco smoking status Never s moked tobacco (finding) [facility] Tobacco smoking status Never [facility] Sex Assigned At Male [facility] Functional Status Date Assessment Result Facility 03-28-2023 Functional Status N/A [facility] Progress note 12-13-2023 Note Date & Type Note Facility 12-13-2023 Note [facility] Note Chief Complaint: Patient here for shared decision making regarding LAAO. When he saw Dr. Harrison 2 weeks ago, his reduced lisinopril down to 10mg daily. Patient tells me today that he was never on lisinoril at all at that visit. HPI: Oscar Cox is a 78 y.o. male With a history of coronary artery disease, persistent atrial fibrillation, chronic lymphedema here to follow-up on concerns regarding hematuria. Thankfully, after being placed back on therapeutic dose Eliquis 5 mg p.o. twice daily, he has had no blood in the urine or stools. He has not had a fall since April 2023. He denies chest pain, he had no worsening shortness of breath. His lower extremity edema is chronic and appears to have worsened. This is despite being on 40 mg of Lasix twice a day. He is not diabetic. He continues to be on lisinopril now although he was not on it at his last clinic visit. That appears to be a misunderstanding. Cardiology ROS: Review of Systems Cardiovascular: Positive for dyspnea on exertion and leg swelling. Skin: Positive for color change. Gastrointestinal: Positive for diarrhea. All other systems reviewed and are negative. Past Medical History He has a past medical history of Atrial fibrillation (CMS/HCC), Cardiomyopathy (CMS/HCC), History of cardioversion (09/14/2018), and Hypertension. Surgical History He has a past surgical history that includes Cardiac catheterization (07/03/2020). Social History He reports that he has quit smoking. His smoking use included cigarettes. He has never used smokeless tobacco. He reports that he does not currently use alcohol. He reports that he does not use drugs. Family History Family History Family history unknown: Yes Allergies Patient has no known allergies. Medications Current Outpatient Medications: apixaban (Eliquis) 5 mg tablet, Take 1 tablet (5 mg) by mouth in the morning and at bedtime., Disp: 180 tablet, Rfl: 3 atorvastatin (Lipitor) 80 mg tablet, Take 1 [...] if needed for cramping., Disp: , Rfl: lisinopril 10 mg tablet, Take 1 tablet (10 mg) by mouth in the morning., Disp: 90 tablet, Rfl: 3 oxybutynin (Ditropan) 5 mg tablet, Take 1 tablet by mouth in the morning, afternoon, and at bedtime., Disp: , Rfl: potassium chloride CR (K-Tab) 20 mEq ER tablet, Take 1 tablet by mouth in the morning., Disp: , Rfl: Last Recorded Vitals BP (!) 97/48 (BP Location: Left arm, Patient Position: Sitting) Pulse 66 Ht 1.778 m (5' 10 ) Wt 106 kg (234 lb) Comment: stated SpO2 96% BMI 33.58 kg/m??? Physical Examination: GENERAL: alert and oriented x3, well developed, in no acute distress. HEAD: atraumatic, normocephalic. EYES: ABE, EOMI. NECK: trachea midline, no JVD present, no carotid bruits present. CARDIAC: S1, S2 present. RRR. No murmur, rubs, or gallops. RESPIRATORY: CTAB, no increased effort of breathing, no rales, rhonchi, or wheezing. ABDOMEN: soft, nontender, nondistended. EXTREMITIES: no lower extremity edema, peripheral pulses are 2+ bilaterally. No rash/skin discoloration present. NEURO: strength/sensation equal and symmetric in bilateral upper and lower extremities. PSYCH: appropriate mood, affect, and judgement. Reviewed echo from 06/22/2021 LV systolic function normal ejection fraction 60 to 65% No regional wall motion abnormalities Mild LVH RA mildly dilated RV systolic function and size are normal Mild mitral valve regurg CVl report 07/03/2020 Cardiovascular Laboratory Report FINAL IMPRESSIONS: 1. Pewo-wa-zylvdlwe 3-vessel coronary artery disease. 2. Pnjc-bu-bdzfbewn left main coronary artery disease that appears unchanged from prior angiography. 3. Normal global left ventricular systolic function by noninvasive imaging. 4. Severely elevated right-sided heart pressures by echocardiography. RECOMMENDATIONS:1. Aggressive cardiovascular risk factor modification. 2. Optimization of medical management; will increase his Lasix to 40 mg p.o. b.i.d. with a followup basic metabolic panel in a week. 3. We will switch his Toprol-XL to Coreg 25 mg p.o. b.i.d. for more aggressive blood pressure control. 4. High-intensity statin therapy, aspirin are indicated. Lab reviewed 07/28/2020 BUN 11, CR 0.94 09/14/2018 Echo/ALEJANDRA Global left ventricular systolic function is normal (Visually estimated EF 55%). The left ventricle is normal size. No regional wall motion abnormality. Normal right ventricular systolic function. The left atrium is sever (more content not included)... [facility] Progress note 11-27-2023 Note Date & Type Note Facility 11-27-2023 Note [place] [facility] Subjective Oscar Cox is a 78 y.o. year old male patient being seen for 6 mo follow up echo and labs. Also here to discuss LAAO device due to hematuria and frequent falls. Patient is anticoagulated with Eliquis, and it was reduced to 2.5mg bid at last visit in May 2023 by Anatoliy Novak CNP. Denies chest pain, palpitations, lightheadedness/syncope, and recurrent hematuria. He said Dr. Gould stopped his Klor-Con last month because he's also taking a multivitamin which contains enough potassium. Patient Active Problem List Diagnosis Acquired hallux [...] of right hip Urge incontinence of urine Acute on chronic combined systolic (congestive) and diastolic (congestive) heart failure (CMS/HCC) Atrial fibrillation (CMS/HCC) Bradycardia, unspecified Cervical disc disease Chronic anticoagulation Cognitive communication deficit Atherosclerotic heart disease of [place] coronary artery without angina pectoris Diarrhea Hypokalemia History of prostate cancer History of colonic polyps Heart failure, diastolic (CMS/HCC) Lower extremity edema Muscle weakness (generalized) Repeated falls Family History Family history unknown: Yes Social History Tobacco Use Smoking status: Former Types: Cigarettes Smokeless tobacco: Never Substance Use Topics Alcohol use: Not Currently Drug use: Never HPI Oscar is seen in follow-up to discuss left atrial appendage closure. 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 He has history of persistent atrial fibrillation. In the past he underwent cardioversion a few years ago but he has remained recently in atrial fibrillation. He has been anticoagulated with Eliquis. This had to be reduced from 5 mg twice daily to 2.5 mg twice daily due to hematuria. In addition he has frequent falls. His prior medical history is significant for coronary artery disease as demonstrated by cardiac catheterizations previously, this has been managed medically. In addition he has history of chronic systolic heart failure several years ago with improved ejection fraction on subsequent follow-up. He has history of hypertension on treatment. He has lymphedema. Today he reports that on the Eliquis 2.5 mg twice daily he has not had recent hematuria. He has not had falls since June 2023. Before that he had 3 falls and injured himself. He uses a walker at home to assist with ambulation. He does not get out of the house much. Review of Systems Cardiovascular: Positive for dyspnea on exertion and leg swelling. Skin: Positive for color change. All other systems reviewed and are negative. Objective Visit Vitals BP (!) 95/43 (BP Location: Left arm, Patient Position: Sitting) Pulse 62 Ht 1.778 m (5' 10 ) Wt 107 kg (235 lb) Comment: per patient SpO2 96% BMI 33.72 kg/m??? Smoking Status Former BSA 2.3 m??? Physical Exam Constitutional: Appearance: Normal appearance. Cardiovascular: Comments: lymphedema noted Pulmonary: Effort: Pulmonary effort is normal. No respiratory distress. Musculoskeletal: Right lower le+ Pitting Edema present. Left lower le+ Pitting Edema present. Comments: In wheelchair Neurological: Mental Status: He is alert and oriented to person, place, and time. Psychiatric: Mood and Affect: Mood normal. Judgment: Judgment normal. Allergies No Known Allergies Medications Current Outpatient Medications: atorvastatin (Lipitor) 80 mg tablet, Take 1 tablet by mouth at bedtime., Disp: , Rfl: baclofen (Lioresal) 10 mg tablet, TAKE 1/2 (ONE-HALF) TO 1 (ONE) TABLET BY MOUTH TWICE DAILY, Disp: , Rfl: furosemide (Lasix) 40 mg tablet, Take 40 mg by mouth twice a day., Disp: , Rfl: apixaban (Eliquis) 5 mg tablet, Take 1 tablet (5 mg) by mouth in the morning and at bedtime., Disp: 180 tablet, Rfl: 3 hydroxychloroquine (Plaquenil) 200 mg tablet, Take 1 tablet by mouth in the morning., Disp: , Rfl: hyoscyamine (Anaspaz,Levsin) 0.125 mg tablet, Take 0.125 mg by mouth every 4 (four) hours if needed for cramping., Disp: , Rfl: lisinopril 10 mg tablet, Take 1 tablet (10 mg) by mouth in the morning., Disp: 90 tablet, Rfl: 3 oxybutynin (Ditropan) 5 mg tablet, Take 1 tablet by mouth in the morning, afternoon, and at bedtime., Disp: , Rfl: potassium chloride CR (K-Tab) 20 mEq ER tablet, Take 1 tablet by mouth in the morning., Disp: , Rfl: Recent Labs No visits with results within 6 Month(s) from this visit. Latest known visit (more content not included)... [facility] Progress note 06-01-2023 Note Date & Type [...] month ago He was admitted 04/28-05/02 at [facility] following the last fall and [...] bradycardia during ho (more content not included)... [facility] Clinical Note 03-28-2023 Note Date & Type [...] informed consent obtained. 2. 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) hold Eliquis 2 [...] SARS-CoV-2 (COVID-19) mRNA BNT-162b2 vax 04/09/2021 Recorded [facility] Comment on above: Result Comment: Elec tronically Signed By: HOWIE LOPEZ, Zhang Yan\Date and Time Signed: 03/28/23 20:17 EDT Evaluation + Plan note Note Date & Type Note Facility Evaluation + Plan note No data available for this section [facility] Discharge instructions Note Date & Type Note Facility Hospital Discharge instructions No data available for this section [facility] note Note Date & Type Note Facility Progress note No data available for this section [facility] Summary Purpose Family History No Family History [...] and content) DATE CREATED AUTHOR 07/07/2020 [facility] DATE CREATED AUTHOR AUTHOR'S ORGANIZ ATION 03/02/2023 [facility] DATE CREATED AUTHOR AUTHOR'S ORGANIZ ATION 07/23/2023 [facility] DATE CREATED AUTHOR AUTHOR'S ORGANIZ ATION 12/16/2023 [facility] Patient Care team informatio n (unrecognized section and content) Personnel Name: Neo Gould MD Address: Address: [address] [place] [address] FOR RECORDS PERTAINING TO PATIENTS WHO ARE [...] BE BASED ON THE PRIMARY CLINICAL RECORDS. [facility]. provides no warranty or guarantee of the accuracy or completeness of information in this document.
[2024-01-29 09:24] LABS: Anion Gap 11.4; BUN Creatinine Ratio 22.8; Calcium 9.1 mg/dL (8.5-10.1); Carbon Dioxide 28.1 mmol/L (21.0-32.0); Chloride 105 mmol/L (98-107); Estimated GFR (African America >60 (>=60); Estimated GFR (Non-African Ame >60 (>=60); Glucose 85 mg/dL (74-106); Potassium 4.5 mmol/L (3.5-5.1); Sodium 140 mmol/L (136-145)
[2024-01-29 09:41] LABS: Basophils Percent Auto 0.2 % (0.2-2.0); Eosinophils Absolute Auto 0.4 10^3/uL (0.0-0.7); Eosinophils Percent Auto 4.9 % (0.9-7.0); Hematocrit 39.8 % (42.0-54.0); Hemoglobin 12.4 g/dL (14.0-18.0); Immature Granulocytes Abs Auto 0.05 10^3/uL (0.00-0.03); Immature Granulocytes Pct Auto 0.6 % (0.0-0.5); Lymphocytes Absolute Auto 1.3 10^3/uL (1.2-3.8); Lymphocytes Percent Auto 16.7 % (20.5-60.0); Mean Corpuscular HGB Conc 31.2 g/dL (29.9-35.2); Mean Corpuscular Hemoglobin 31.1 pg (25.9-34.0); Mean Corpuscular Volume 99.7 fL (80.0-94.0); Mean Platelet Volume 11.1 fL (9.5-13.5); Monocytes Absolute Auto 0.8 10^3/uL (0.3-0.8); Monocytes Percent Auto 9.6 % (1.7-12.0); Neutrophils Absolute Auto 5.5 10^3/uL (1.4-6.5); Platelet Count 196 10^3/uL (150-450); Red Blood Count 3.99 10^6/uL (4.70-6.10); Red Cell Distribution Width 13.2 % (11.0-15.0)
== END 2024-01-29 05:02 | disposition home or self-care (01) ==
LOC: LAB 05:01
PROVIDERS: PCP Family Medicine; Visit Provider Family Medicine
DX: Z51.81 Encounter for therapeutic drug level monitoring (principal)
CPT/HCPCS: 36415; 80048; 85025

== ENCOUNTER 2024-02-14 16:47 | Inpatient (IN) | payer MEDICARE, SELFPAY ==
[2024-02-14] VITALS (17 sets, daily range): BP systolic 119–156; BP diastolic 46–78; PULSE 39–64; TEMP 36.3–36.7; O2SAT 92–100; BMI 32.3
--- NOTE | 2024-02-14 16:53 | XR_ITS ---
The [address] [address] Patient Name: JACKSON IQBAL MRN: [id number] date: 1945 Sex: M Assigned Patient Location: ER Current Patient Location: ER Accession/Order Number: [id number] Exam Date: 02/14/2024 17:45 Report Date: 02/14/2024 18:56 At the request of: MEKHI SEGAL Procedure: XR hip LT min 2V XR hip LT min 2V: HISTORY: fall fall COMPARISON: 01/19/2024. TECHNIQUE: 2 left hip views are submitted. FINDINGS: BONES/JOINT SPACES: There is no acute fracture or dislocation. Hmtb-kr-srhbeelx degenerations present in the left hip joint. SOFT TISSUES: Vascular calcium calcifications are present in the soft tissues. XR/XR hip LT min 2V IMPRESSION: No definitive acute fractures of the left hip. Electronically authenticated by: GRAY GRISSOM Date: 02/14/2024 18:56
--- NOTE | 2024-02-14 16:53 | XR_ITS ---
The [address] [address] Patient Name: JACKSON IQBAL MRN: [id number] date: 1945 Sex: M Assigned Patient Location: ER Current Patient Location: ED.MAIN Accession/Order Number: [id number] Exam Date: 02/14/2024 17:45 Report Date: 02/14/2024 18:53 At the request of: MEKHI SEGAL Procedure: XR chest 1V PORTABLE CHEST X-RAY. INDICATION: Fall COMPARISON: None. TECHNIQUE: Single AP portable chest radiograph. FINDINGS: TUBES AND LINES: None. LUNGS: Lungs are clear. PLEURA: No effusions or pneumothorax. HEART AND MEDIASTINUM: Within normal limits for portable technique. OSSEOUS STRUCTURES: No acute abnormality. XR/XR chest 1V IMPRESSION: No acute findings. Electronically authenticated by: CHAPITO KONG Date: 02/14/2024 18:53
--- NOTE | 2024-02-14 16:53 | XR_ITS ---
The [address] [address] Patient Name: JACKSON IQBAL MRN: [id number] date: 1945 Sex: M Assigned Patient Location: ER Current Patient Location: ER Accession/Order Number: [id number] Exam Date: 02/14/2024 17:45 Report Date: 02/14/2024 18:54 At the request of: MEKHI SEGAL Procedure: XR knee LT 3V HISTORY: fall COMPARISON: There are no previous studies available for comparison. TECHNIQUE: 3 views of the left knee. FINDINGS: BONE DENSITY: Demineralized. JOINTS: There is a small to moderate-sized knee joint effusion. Severe osteoarthritis of the knee joint. Chondrocalcinosis FRACTURE: No acute fracture. DISLOCATION: None. SOFT TISSUES: No radiopaque foreign body. XR/XR knee LT 3V IMPRESSION: 1. No acute osseous abnormality. 2. Small to moderate-sized knee joint effusion. Electronically authenticated by: CHAPITO KONG Date: 02/14/2024 18:54
--- NOTE | 2024-02-14 16:53 | ECG_ITS ---
[facility] Test Date: 2024-02-14 Pat Name: JACKSON IQBAL Department: Room: - Gender: Male Manager Industrial: : 1945 Requested By: NEO CARRERA Order Number: [id number] Reading MD: NEO CARRERA Measurements Intervals [place] Rate: 56 P: -[id number] NE: -24374 QRS: -13 QRSD: 112 T: 47 QT: 424 QTc: 414 Interpretive Statements 57810 Atrial fibrillation with aberrant conduction, or ventricular premature complexes 2440 Incomplete right bundle branch block 9140 abnormal rhythm ECG Compared to ECG 01/19/2024 14:38:59 Ventricular premature complex(es) now present Incomplete right bundle-branch block now present Electronically Signed On 02-15-2024 5:11:53 EDT by NEO CARRERA
--- NOTE | 2024-02-14 17:09 | CT_ITS ---
The [address] [address] Patient Name: JACKSON IQBAL MRN: [id number] date: 1945 Sex: M Assigned Patient Location: ER Current Patient Location: ER Accession/Order Number: [id number] Exam Date: 02/14/2024 17:44 Report Date: 02/14/2024 18:59 At the request of: MEKHI SEGAL Procedure: CT cervical spine wo con EXAM: CT cervical spine wo con HISTORY: trauma COMPARISON: 04/28/2023 TECHNIQUE: CT cervical spine without contrast. Multiplanar reformats obtained. The current study utilizes one or more of the following dose-reduction techniques: automated exposure control, iterative reconstruction, and/or manual adjustment of tube current and voltage for size. FINDINGS: Age expected degenerative changes. No evidence of acute fracture or traumatic malalignment. No prevertebral edema. Spinal canal grossly patent. Moderate to severe multilevel and bilateral neural foraminal stenoses. CT/CT cervical spine wo con IMPRESSION: No acute traumatic findings of the cervical spine. Electronically authenticated by: KALEY PENNY Date: 02/14/2024 18:59
--- NOTE | 2024-02-14 17:15 | ED.GENADUL1 ---
HPI HPI - General Adult General Chief complaint: Weakness Stated complaint: fall Time Seen by Provider: 02/14/24 16:48 Source: patient Mode of arrival: ambulance History of Present Illness HPI narrative: Patient presents the ED after a fall at home. He was recently released from [facility]. He was there for weakness and falls. He said he was using his walker when his legs just sort of gave out. He tried to hang onto his walker but he fell mostly onto the left leg. He complains of pain in the left hip and the left knee. He also complains of mild neck pain. He denies loss of consciousness. No chest pain. This was a mechanical fall and not syncopal.He has difficulty moving his left leg which is normal from his previous falls that is not new today. He is a poor historian. Related Data Home Medications ?Medication ?Instructions ?Recorded ?Confirmed atorvastatin 80 mg tablet 80 mg PO QPM 04/12/23 02/14/24 furosemide 40 mg tablet 40 mg PO Q12H 04/12/23 02/14/24 apixaban 5 mg tablet (Eliquis) 5 mg PO Q12H 01/20/24 02/14/24 potassium chloride 20 mEq 40 meq PO DAILY 02/14/24 02/14/24 tablet,extended release(part/cryst) Previous Rx's ?Medication ?Instructions ?Recorded acetaminophen 500 mg tablet 1,000 mg (2 x 500 mg) PO Q6H PRN 05/02/23 (Tylenol Extra Strength) Pain Scale 1-3 #120 tabs carvedilol 6.25 mg tablet 6.25 mg PO BID #60 tabs 01/23/24 Allergies Allergy/AdvReac Type Severity Reaction Status Date / Time No Known Drug Allergies Allergy Verified 01/19/24 14:38 Opioid HPI Opioid Management Most Recent Opioid Data: Last Pain Scale 7 01/22/24 13:23 Last Pain Intensity 3 06/16/23 11:30 Last ED Pain Assessment 02/14/24 17:13 Last ORT Total Score 0 01/19/24 20:06 Last ORT Risk Category Low Risk 01/19/24 20:06 Review of Systems ROS Status of ROS 10 or more systems reviewed and unremarkable except as noted in history and below PFS PFS Medical History (Updated 01/27/24 @ 00:00 by ) Inability to walk ?R26.2 - Difficulty in walking, not elsewhere classified (ICD-10) Near syncope ?R55 - Syncope and collapse (ICD-10) Left leg weakness ?R29.898 - Other symptoms and signs involving the musculoskeletal system (ICD-10) Leg pain, left ?M79.605 - Pain in left leg (ICD-10) Frequent falls ?R29.6 - Repeated falls (ICD-10) Bradycardia with 31-40 beats per minute ?R00.1 - Bradycardia, unspecified (ICD-10) Hypokalemia ?E87.6 - Hypokalemia (ICD-10) PVC (premature ventricular contraction) ?I49.3 - Ventricular premature depolarization (ICD-10) Lower extremity edema ?R60.0 - Localized edema (ICD-10) Obesity ?E66.9 - Obesity, unspecified (ICD-10) Hypertension ?I10 - Essential (primary) hypertension (ICD-10) Prostate cancer ?C61 - Malignant neoplasm of prostate (ICD-10) Colon polyps ?K63.5 - Polyp of colon (ICD-10) Heart failure, diastolic ?I50.30 - Unspecified diastolic (congestive) heart failure (ICD-10) Coronary arteriosclerosis ?I25.10 - Atherosclerotic heart disease of [place] coronary artery without angina pectoris (ICD-10) Chronic anticoagulation ?Z79.01 - 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 Known occupational exposures/hazards: No Highest level of school completed/degree received: Associate degree: occupational, technical, vocational program Do you want help with school or training: No Are you now , , , , never or living with a partner: In a typical week, how many times do you talk on the telephone with family, friends, or neighbors: 3 or more times per week How often do you get together with friends or relatives: once per week How often do you attend hoahaoism or hinduism services: never Do you belong to any clubs or organizations such as hoahaoism groups unions, fraternal or athletic groups, or school groups: no Total score: 1 Score interpretation: A score of less than or equal to 1 indicates the most socially isolated. Little interest or pleasure in doing things: not at all Feeling down, depressed, or hopeless: not at all Feel stressed/tense/nervous/anxious/difficulty sleeping: not at all Due to disability, difficulty making decisions: No Do you think of yourself as: straight/heterosexual Gender Identity: male Exam Narrative Exam Narrative: Time Seen: [] Vital Signs: [Per nurse's notes.] General: [Alert] Skin: [Warm, dry, no rash.] Head: [Normocephalic, atraumatic.] Neck: [Supple, trachea midline.] Eye: [Pupils are equal, round and reactive to light, extraocular movements are intact, normal conjunctiva.] Ears, nose, mouth and throat: oral mucosa moist. Cardiovascular: [Regular rate and rhythm, no murmur.] Respiratory: [Lungs are clear to auscultation, respirations are non-labored, breath sounds are equal.] Chest wall: [No tenderness, no deformity.] Gastrointestinal: [Soft, nontender, non distended, normal bowel sounds.] MSK: Chronic lower extremity edema. 2 out of 5 muscle strength in the left lower extremity 3 out of 5 muscle strength in right lower extremity. Patient states this is normal for him and that is why he was in rehab. Pain in the left hip and pain in the left knee. No obvious deformity. Lymphatics: [No lymphadenopathy.] Psychiatric: [Cooperative, appropriate mood & affect.] Neurological: [Alert and oriented to person, place, time, and situation, no focal neurological deficit observed.] Constitutional Vital Signs, click to edit/add: Last Vital Signs Temp 98.0 F 02/14/24 16:48 Pulse 64 02/14/24 17:30 Resp 12 02/14/24 17:30 BP 126/49 02/14/24 17:30 Pulse Ox 96 02/14/24 16:48 O2 Del Method Room Air 02/14/24 16:48 Course Vital Signs Vital signs: Vital Signs Temperature 98.0 F 02/14/24 16:48 Pulse Rate 54 L 02/14/24 16:48 Respiratory Rate 16 02/14/24 16:48 Blood Pressure 119/67 02/14/24 16:48 Pulse Oximetry 96 02/14/24 16:48 Oxygen Delivery Method Room Air 02/14/24 16:48 Temperature 98.0 F 02/14/24 16:48 Pulse Rate 64 02/14/24 17:30 Respiratory Rate 12 02/14/24 17:30 Blood Pressure 126/49 02/14/24 17:30 Pulse Oximetry 96 02/14/24 16:48 Oxygen Delivery Method Room Air 02/14/24 16:48 Medical Decision Making MDM Narrative Medical decision making narrative: Patient's labs and imaging are nonacute however it is evident that he most likely cannot care for himself at home. He continues to have multiple falls and he has continued weakness in his left lower extremity. Patient will need to be admitted for further care and most likely placement into a rehab facility or detention facility. I spoke to Nova the [facility] RUNNER for Dr. Gould who accepts the patient. Patient is comfortable with care plan for admission Differential Diagnosis Differential Diagnosis: Fracture dislocation sprain strain weakness viral syndrome UTI electrolyte Medical Records Medical records reviewed: Yes I reviewed the patient's medical records Lab Data Lab results reviewed: Yes I reviewed the patient's lab results Labs: Lab Results 02/14/24 Range/Units 17:07 WBC 8.5 (4.0-11.0) 10^3/uL RBC 3.82 L (4.70-6.10) 10^6/uL Hgb 11.7 L (14.0-18.0) g/dL Hct 36.4 L (42.0-54.0) % MCV 95.3 H (80.0-94.0) fL MCH 30.6 (25.9-34.0) pg MCHC 32.1 (29.9-35.2) g/dL RDW 13.2 (11.0-15.0) % Plt Count 195 (150-450) 10^3/uL MPV 10.4 (9.5-13.5) fL Neut % (Auto) 80.9 H (43.0-75.0) % Lymph % (Auto) 9.3 L (20.5-60.0) % [place] % (Auto) 7.6 (1.7-12.0) % Eos % (Auto) 1.6 (0.9-7.0) % Baso % (Auto) 0.4 (0.2-2.0) % Neut # (Auto) 6.9 H (1.4-6.5) 10^3/uL Lymph # (Auto) 0.8 L (1.2-3.8) 10^3/uL [place] # (Auto) 0.7 (0.3-0.8) 10^3/uL Eos # (Auto) 0.1 (0.0-0.7) 10^3/uL Baso # (Auto) 0.0 (0.0-0.1) 10^3/uL Abs Immat Gran (auto) 0.02 (0.00-0.03) 10^3/uL Imm/Tot Granulo (auto) 0.2 (0.0-0.5) % Sodium 142 (136-145) mmol/L Potassium 3.5 (3.5-5.1) mmol/L Chloride 107 (98-107) mmol/L Carbon Dioxide 25.6 (21.0-32.0) mmol/L Anion Gap 12.9 BUN 17.0 (7.0-18.0) mg/dL Creatinine 0.92 (0.70-1.30) mg/dL Est GFR ( Amer) >60 (>=60) Est GFR (Non-Af Amer) >60 (>=60) BUN/Creatinine Ratio 18.5 Glucose 106 (74-106) mg/dL Calcium 9.9 (8.5-10.1) mg/dL Total Bilirubin 0.6 (0.2-1.0) mg/dL AST 14 L (15-37) U/L ALT 16 (16-63) U/L Alkaline Phosphatase 99 (46-116) U/L Troponin I High Sens 27.7 (4.0-76.1) pg/mL Total Protein 6.5 (6.4-8.2) g/dL Albumin 3.1 L (3.4-5.0) g/dL Globulin 3.4 g/dL Albumin/Globulin Ratio 0.9 Imaging Data Chest x-ray: Attestation: I personally reviewed and interpreted this imaging study as follows: My impression: No obvious fracture or dislocation in the patient's images. I reviewed the images myself, radiology interpretation not available yet. ECG Data Attestation: I personally reviewed and interpreted this ECG as follows: Interpretation: EKG INTERPRETATION Time: []170 Rate: []56 Rhythm: _ []A-fib, bradycardic ST segments: _ [] T waves: _ [] Ectopy: _ [] P wave/AL interval: _ [] QRS interval: _ [] QT interval: _ [] Comparison: _ [] Comparison EKG date: [] Performed by: [self] Discharge Plan Discharge Chief Complaint: Weakness Time of Disposition Decision: 18:27 Prescriptions / Home Meds: No Action furosemide 40 mg tablet 40 mg PO Q12H atorvastatin 80 mg tablet 80 mg PO QPM acetaminophen [Tylenol Extra Strength] 500 mg Tablet 1,000 mg PO Q6H PRN (Reason: Pain Scale 1-3) Qty: 120 0RF Eliquis 5 mg tablet 5 mg PO Q12H carvedilol 6.25 mg Tablet 6.25 mg PO BID Qty: 60 11RF potassium chloride 20 mEq tablet,ER particles/crystals 40 meq PO DAILY Print Language: Uzbek
[2024-02-14] MEDS: 0.9 % SODIUM CHLORIDE 500 ML IV (17:19)
[2024-02-14 17:37] LABS: Basophils Percent Auto 0.4 % (0.2-2.0); Eosinophils Absolute Auto 0.1 10^3/uL (0.0-0.7); Eosinophils Percent Auto 1.6 % (0.9-7.0); Hematocrit 36.4 % (42.0-54.0); Hemoglobin 11.7 g/dL (14.0-18.0); Immature Granulocytes Abs Auto 0.02 10^3/uL (0.00-0.03); Immature Granulocytes Pct Auto 0.2 % (0.0-0.5); Lymphocytes Absolute Auto 0.8 10^3/uL (1.2-3.8); Lymphocytes Percent Auto 9.3 % (20.5-60.0); Mean Corpuscular HGB Conc 32.1 g/dL (29.9-35.2); Mean Corpuscular Hemoglobin 30.6 pg (25.9-34.0); Mean Corpuscular Volume 95.3 fL (80.0-94.0); Mean Platelet Volume 10.4 fL (9.5-13.5); Monocytes Absolute Auto 0.7 10^3/uL (0.3-0.8); Monocytes Percent Auto 7.6 % (1.7-12.0); Neutrophils Absolute Auto 6.9 10^3/uL (1.4-6.5); Neutrophils Percent Auto 80.9 % (43.0-75.0); Platelet Count 195 10^3/uL (150-450); Red Blood Count 3.82 10^6/uL (4.70-6.10); Red Cell Distribution Width 13.2 % (11.0-15.0); White Blood Count 8.5 10^3/uL (4.0-11.0)
[2024-02-14 17:52] LABS: Alanine Aminotransferase 16 U/L (16-63); Albumin Globulin Ratio 0.9; Albumin Level 3.1 g/dL (3.4-5.0); Alkaline Phosphatase 99 U/L (46-116); Anion Gap 12.9; Aspartate Amino Transferase 14 U/L (15-37); BUN Creatinine Ratio 18.5; Bilirubin Total 0.6 mg/dL (0.2-1.0); Calcium 9.9 mg/dL (8.5-10.1); Carbon Dioxide 25.6 mmol/L (21.0-32.0); Chloride 107 mmol/L (98-107); Estimated GFR (African America >60 (>=60); Estimated GFR (Non-African Ame >60 (>=60); Globulin 3.4 g/dL; Glucose 106 mg/dL (74-106); Potassium 3.5 mmol/L (3.5-5.1); Sodium 142 mmol/L (136-145); Total Protein 6.5 g/dL (6.4-8.2); Troponin I High Sensitivity 27.7 pg/mL (4.0-76.1)
--- OUTSIDE RECORDS SUMMARY | 2024-02-14 19:14 | XMS_ITS | CCD ---
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] Onset: 12-13-2023 [...] 12-10-2022 Chronic Other aftercare (1 source) 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; 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: [[employer]PENTER CURRENT DRUG THERAPY] Onset: 12-14-2022 Episodic Other aftercare (2 sources) Long-term current use of anticoagulant; 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: [half-way (current) use of anticoagulants] Onset: 03-28-2023 Episodic [...] Range Facility Office Visiton 12-13-2023 Follow-up visit [id number] Oscar Cox 1945 M Date Provider Department Center 12/13/2023 Jayesh-SHILOH HESTER ABILIO [facility] Family History Family history unknown: Yes Level of Service:10126 [place] OFFICE/OUTPATIENT ESTABLISHED MOD MDM 30 MIN Normal [facility] Office Visiton 11-27-2023 Follow-up visit [id number] Oscar Cox 1945 M Date Provider Department Center 11/27/2023 Kael-JONATHAN HARRISON ABILIO [facility] Family History Family history unknown: Yes Level of Service:50364 [place] OFFICE/OUTPATIENT ESTABLISHED MOD MDM 30 MIN Normal [facility] Correction Recordson 07-04 Correction Records [id number] CD:127 Normal [facility] 37on 06-01-2023 37 -Reduce Lisinopril t o 10 mg once a day -Will get an ultrasound of your heart -Continue Lasix 40 mg twice a day -Follow-up with Dr. Harrison to discuss watchman -Start Eliquis 2.5 mg twice a day and monitor for more bleeding Normal [facility] Office Visiton 06-01-2023 Follow-up visit [id number] BrookeOscar Morton 1945 Date Provider Department Center 06/01/2023 ANATOLIY JEFFERSON ABILIO Favian Parada Family History Family history unknown: Yes Level of Service:96077 [place] OFFICE/OUTPATIENT ESTABLISHED MOD MDM 30-39 MIN Reason for Visit and Comments: Follow-up [321851] - Concerns due to increased swelling bilateral legs and also having blood in urine - Eliquis is being held at the moment Normal [facility] Orders Onlyon 06-01-2023 Orders Only [id number] Oscar Cox 1945 Date Provider Department Center 06/01/2023 ELVIN CADENA ABILIO Favian Tal Family History Family history unknown: Yes [facility] Reminderson 05-10-2023 Reminders - From: Pennie Bose LPN To: GSN - Clinical; Sent: 05/10/2023 10:13:27 EDT Show up: 03/27/2028 07:00:00 EDT Subject: colonoscopy recall Due Date/Time: 04/26/2028 07:00:00 EDT Reminder/Recall Patient due for surveillance colonoscopy 04/26/2028. [facility] Pathology Noteon 05-03-2023 Pathology Note [id number] 0CD:127 [facility] Outside Colonoscopyon 2022 Outside Colonoscopy [id number] 0CD:127 [facility] Pre-Certification Formon Pre-Certification Form [id number]. 00CD:127 [facility] Consent for Procedure/Surger yon 03-29-2023 Consent for Procedure/Surgery [id number] 0CD:127 [facility] Ambulatory Visit Summaryon 0 03-28-2023 Ambulatory [...] of colonic polyps Premature beats Normal [place] [facility] Physician Referralon 023 Physician Referral [id number] 0CD:127 Normal [facility] CBC AUTO DIFFon 03-01-2023 BASO # 0.0 103/ul Normal 0.0-0.1 [facility] Comment on above: Performed By: #### D ATCBC #### [facility] [address] [place] [address] Dr. Power Covarrubias Basophils/100 WBC (Bld) 0.7 % Normal 0.2-2.0 [facility] Comment on above: Performed By: #### D ATCBC #### [facility] [address] [place] [address] Dr. Power Covarrubias EO # 0.1 103/ul Normal 0.0-0.7 [facility] Comment on above: Performed By: #### D ATCBC #### [facility] [address] [place] [address] Dr. Power Covarrubias Eosinophils/100 WBC (Bld) 1.8 % Normal 0.9-7.0 [facility] Comment on above: Performed By: #### D ATCBC #### [facility] [address] [place] [address] Dr. Power Covarrubias Erythrocyte distribution width (RBC) [Ratio] 13.3 % Normal 11.0-15.0 [facility] Comment on above: Performed By: #### D ATCBC #### [facility] [address] [place] [address] Dr. Power Covarrubias Hematocrit (Bld) [Volume fraction] 40.7 % Critically low 42.0-54.0 [facility] Comment on above: Performed By: #### D ATCBC #### [facility] [address] [place] [address] Dr. Power Covarrubias Hemoglobin (Bld) [Mass/Vol] 12.9 g/dL Critically low 14.0-18.0 [facility] Comment on above: Performed By: #### D ATCBC #### [facility] [address] [place] [address] Dr. Power Covarrubias IG # 0.01 10e3/ul Normal 0.00-0.03 [facility] Comment on above: Performed By: #### D ATCBC #### [facility] [address] [place] [address] Dr. Power Covarrubias IG % 0.2 % Normal 0.0-0.5 [facility] Comment on above: Performed By: #### D ATCBC #### [facility] [address] [place] [address] Dr. Power Covarrubias LYMPH # 0.7 103/ul Critically low 1.2-3.8 [facility] Comment on above: Performed By: #### D ATCBC #### [facility] [address] [place] [address] Dr. Power Covarrubias Lymphocytes/100 WBC (Bld) 16.3 % Critically low 20.5-60.0 [facility] Comment on above: Performed By: #### D ATCBC #### [facility] [address] [place] [address] Dr. Power Covarrubias MCH (RBC) [Entitic mass] 29.6 pg Normal 25.9-34.0 [facility] Comment on above: Performed By: #### D ATCBC #### [facility] [address] [place] [address] Dr. Power Covarrubias MCHC (RBC) [Mass/Vol] 31.7 g/dL Normal 29.9-35.2 [facility] Comment on above: Performed By: #### D ATCBC #### [facility] [address] [place] [address] Dr. Power Covarrubias MCV (RBC) [Entitic vol] 93.3 fL Normal 80.0-94.0 [facility] Comment on above: Performed By: #### D ATCBC #### [facility] [address] [place] [address] Dr. Power Covarrubias MONO # 0.3 103/ul Normal 0.3-0.8 [facility] Comment on above: Performed By: #### D ATCBC #### [facility] [address] [place] [address] Dr. Power Covarrubias Monocytes/100 WBC (Bld) 7.5 % Normal 1.7-12.0 [facility] Comment on above: Performed By: #### D ATCBC #### [facility] [address] [address] [address] Power Covarrubias NEUT # 3.4 103/ul Normal 1.4-6.5 [facility] Comment on above: Performed By: #### D ATCBC #### [facility] [address] [address] [address] Power Covarrubias Neutrophils/100 WBC (Bld) 73.5 % Normal 43.0-75.0 [facility] Comment on above: Performed By: #### D ATCBC #### [facility] [address] [place] [address] Dr. oPwer Covarrubias Platelet mean volume (Bld) [Entitic vol] 9.9 fL Normal 9.5-13.5 [facility] Comment on above: Performed By: #### D ATCBC #### [facility] [address] [place] [address] Dr. Power Covarrubias PLT 198 103/ul Normal 150-450 [facility] Comment on above: Performed By: #### D ATCBC #### [facility] [address] [place] [address] Dr. Power Covarrubias RBC 4.36 106/ul Critically low 4.70-6.10 [facility] Comment on above: Performed By: #### D ATCBC #### [facility] [address] [place] [address] Dr. Power Covarrubias WBC 4.6 103/ul Normal 4.0-11.0 [facility] Comment on above: Performed By: #### D ATCBC #### [facility] [address] [place] [address] Dr. Power Covarrubias BRE - LIPID PROFILEon 2022 CHOL-HDL RATIO NORM SEE BELOW Normal [facility] Comment on above: Result Comment: 3.3 - 4.4 LOW RISK 4.4 - 7.1 AVERAGE RISK 7.1 - 11.0 MODERATE RISK >11.0 HIGH RISK Performed By: #### D ATLIPI, DATPSA, DATBMP #### [facility] [address] [address] [address] Power Covarrubias Cholesterol.total/Ch olesterol in HDL [Mass ratio] 2.2 {ratio} Normal [facility] Comment on above: Performed By: #### D ATLIPI, DATPSA, DATBMP #### [facility] [address] [address] [address] Power Covarrubias BRE- BMP WITH LIPIDon 2022 Anion gap [Moles/Vol] 12.8 mmol/L Normal [facility] Comment on above: Performed By: #### D ATLIPI, DATPSA, DATBMP #### [facility] [address] [place] [address] Dr. Power Covarrubias Calcium [Mass/Vol] 9.3 mg/dL Normal 8.5-10.1 [facility] Comment on above: Performed By: #### D ATLIPI, DATPSA, DATBMP #### [facility] [address] [address] [address] Power Covarrubias Chloride [Moles/Vol] 107 mmol/L Normal 98-107 [facility] Comment on above: Performed By: #### D ATLIPI, DATPSA, DATBMP #### [facility] [address] [place] [address] Dr. Power Covarrubias Cholesterol [Mass/Vol] 123 mg/dL Normal <=200 [facility] Comment on above: Performed By: #### D ATLIPI, DATPSA, DATBMP #### [facility] [address] [address] [address] Power Covarrubias Cholesterol in HDL [Mass/Vol] 56 mg/dL Normal 40-60 [facility] Comment on above: Performed By: #### D ATLIPI, DATPSA, DATBMP #### [facility] [address] [address] [address] Power Covarrubias Cholesterol in LDL [Mass/Vol] 52.0 mg/dL Normal [facility] Comment on above: Performed By: #### D ATLIPI, DATPSA, DATBMP #### [facility] [address] [address] [address] Power Covarrubias CO2 [Moles/Vol] 28.7 mmol/L Normal 21.0-32.0 [facility] Comment on above: Performed By: #### D ATLIPI, DATPSA, DATBMP #### [facility] [address] [address] [address] Power Covarrubias Creatinine [Mass/Vol] 0.93 mg/dL Normal 0.70-1.30 [facility] Comment on above: Performed By: #### D ATLIPI, DATPSA, DATBMP #### [facility] [address] [place] [address] Dr. Power Covarrubias EGFR-AF GUAMANIAN >60 Normal >=60 [facility] Comment on above: Performed By: #### D ATLIPI, DATPSA, DATBMP #### [facility] [address] [address] [address] Power Covarrubias EGFR-NON AF GUAMANIAN >60 Normal >=60 [facility] Comment on above: Performed By: #### D ATLIPI, DATPSA, DATBMP #### [facility] [address] [address] [address] Power Covarrubias Glucose [Mass/Vol] 97 mg/dL Normal 74-106 [facility] Comment on above: Performed By: #### D ATLIPI, DATPSA, DATBMP #### [facility] [address] [place] [address] Dr. Power Covarrubias HDL NORMAL > or = 60 mg/dl - LO W CARDIOVASCULAR RISK <40 mg/dl - HIGH CARDIOVASCULAR RISK Normal [facility] Comment on above: Performed By: #### D ATLIPI, DATPSA, DATBMP #### [facility] [address] [place] [address] Dr. Power Covarrubias LDL CALC NORMAL SEE BELOW Normal [facility] Comment on above: Result Comment: <100 mg/dl OPTIMAL 100 - 129 mg/dl NEAR OR ABOVE OPTIMAL 130 - 159 mg/dl BORDERLINE HIGH 160 - 189 mg/dl HIGH >190 mg/dl VERY HIGH Performed By: #### D ATLIPI, DATPSA, DATBMP #### [facility] [address] [address] [address] Power Covarrubias Potassium [Moles/Vol] 3.5 mmol/L Normal 3.5-5.1 [facility] Comment on above: Performed By: #### D ATLIPI, DATPSA, DATBMP #### [facility] [address] [address] [address] Power Covarrubias Sodium [Moles/Vol] 145 mmol/L Normal 136-145 [facility] Comment on above: Performed By: #### D ATLIPI, DATPSA, DATBMP #### [facility] [address] [place] [address] Dr. Power Covarrubias Triglyceride [Mass/Vol] 75 mg/dL Normal <=150 [facility] Comment on above: Performed By: #### D ATLIPI, DATPSA, DATBMP #### [facility] [address] [address] [address] Power Covarrubias Urea nitrogen [Mass/Vol] 11.0 mg/dL Normal 7.0-18.0 [facility] Comment on above: Performed By: #### D ATLIPI, DATPSA, DATBMP #### [facility] [address] [address] [address] Power Covarrubias Urea nitrogen/Creatinine [Mass ratio] 11.8 mg/mg Normal [facility] Comment on above: Performed By: #### D ATLIPI, DATPSA, DATBMP #### [facility] [address] [address] [address] Power Covarrubias VLDL CALC 15.0 mg/dL Normal [facility] Comment on above: Performed By: #### D ATLIPI, DATPSA, DATBMP #### [facility] [address] [place] [address] Dr. Power Covarrubias GLYCOHEMOGLOBIN A1Con 2022 ADA RECOMMENDATION SEE BELOW Normal [facility] Comment on above: Result Comment: ADA RECOMMENDED LIMIT 4.0 - 6.0 ADA THERAPEUTIC TARGET < 7.0 ACTION SUGGESTED > 7.0 Performed By: #### D ATLIPI, DATPSA, DATBMP #### [facility] [address] [place] [address] Dr. Power Covarrubias Glucose [Mass/Vol] 105 mg/dL Normal [facility] Comment on above: Performed By: #### D ATLIPI, DATPSA, DATBMP #### [facility] [address] [place] [address] Dr. Power Covarrubias HbA1c (Bld) [Mass fraction] 5.3 % Normal 4.5-6.2 [facility] Comment on above: Performed By: #### D ATLIPI, DATPSA, DATBMP #### [facility] [address] [place] [address] Dr. Power Covarrubias CBC AUTO DIFFon 12-10-2022 BASO # 0.0 103/ul Normal 0.0-0.1 [facility] Comment on above: Performed By: #### D ATLIPI, DATPSA, DATBMP #### [facility] [address] [place] [address] Dr. Powre Covarrubias Basophils/100 WBC (Bld) 0.4 % Normal 0.2-2.0 [facility] Comment on above: Performed By: #### D ATLIPI, DATPSA, DATBMP #### [facility] [address] [place] [address] Dr. Power Covarrubias EO # 0.2 103/ul Normal 0.0-0.7 [facility] Comment on above: Performed By: #### D ATLIPI, DATPSA, DATBMP #### [facility] [address] [place] [address] Dr. Power Covarrubias Eosinophils/100 WBC (Bld) 3.6 % Normal 0.9-7.0 [facility] Comment on above: Performed By: #### D ATLIPI, DATPSA, DATBMP #### [facility] [address] [place] [address] Dr. Power Covarrubias Erythrocyte distribution width (RBC) [Ratio] 13.5 % Normal 11.0-15.0 [facility] Comment on above: Performed By: #### D ATLIPI, DATPSA, DATBMP #### [facility] [address] [place] [address] Dr. Power Covarrubias Hematocrit (Bld) [Volume fraction] 37.5 % Critically low 42.0-54.0 [facility] Comment on above: Performed By: #### D ATLIPI, DATPSA, DATBMP #### [facility] [address] [place] [address] Dr. Power Covarrubias Hemoglobin (Bld) [Mass/Vol] 12.0 g/dL Critically low 14.0-18.0 [facility] Comment on above: Performed By: #### D ATLIPI, DATPSA, DATBMP #### [facility] [address] [place] [address] Dr. Power Covarrubias IG # 0.02 10e3/ul Normal 0.00-0.03 [facility] Comment on above: Performed By: #### D ATLIPI, DATPSA, DATBMP #### [facility] [address] [place] [address] Dr. Power Covarrubias IG % 0.4 % Normal 0.0-0.5 [facility] Comment on above: Performed By: #### D ATLIPI, DATPSA, DATBMP #### [facility] [address] [place] [address] Dr. Power Covarrubias LYMPH # 0.9 103/ul Critically low 1.2-3.8 [facility] Comment on above: Performed By: #### D ATLIPI, DATPSA, DATBMP #### [facility] [address] [place] [address] Dr. Power Covarrubias Lymphocytes/100 WBC (Bld) 17.7 % Critically low 20.5-60.0 [facility] Comment on above: Performed By: #### D ATLIPI, DATPSA, DATBMP #### [facility] [address] [place] [address] Dr. Power Covarrubias MANUAL DIFF REQ NO Normal [facility] Comment on above: Performed By: #### D ATLIPI, DATPSA, DATBMP #### [facility] [address] [place] [address] Dr. Power Covarrubias MCH (RBC) [Entitic mass] 29.7 pg Normal 25.9-34.0 [facility] Comment on above: Performed By: #### D ATLIPI, DATPSA, DATBMP #### [facility] [address] [place] [address] Dr. Power Covarrubias MCHC (RBC) [Mass/Vol] 32.0 g/dL Normal 29.9-35.2 [facility] Comment on above: Performed By: #### D ATLIPI, DATPSA, DATBMP #### [facility] [address] [place] [address] Dr. Power Covarrubias MCV (RBC) [Entitic vol] 92.8 fL Normal 80.0-94.0 [facility] Comment on above: Performed By: #### D ATLIPI, DATPSA, DATBMP #### [facility] [address] [place] [address] Dr. Power Covarrubias MONO # 0.6 103/ul Normal 0.3-0.8 [facility] Comment on above: Performed By: #### D ATLIPI, DATPSA, DATBMP #### [facility] [address] [place] [address] Dr. Power Covarrubias Monocytes/100 WBC (Bld) 11.1 % Normal 1.7-12.0 [facility] Comment on above: Performed By: #### D ATLIPI, DATPSA, DATBMP #### [facility] [address] [place] [address] Dr. Power Covarrubias NEUT # 3.6 103/ul Normal 1.4-6.5 [facility] Comment on above: Performed By: #### D ATLIPI, DATPSA, DATBMP #### [facility] [address] [address] [address] Power Covarrubias Neutrophils/100 WBC (Bld) 66.8 % Normal 43.0-75.0 [facility] Comment on above: Performed By: #### D ATLIPI, DATPSA, DATBMP #### [facility] [address] [place] [address] Dr. Power Covarrubias Platelet mean volume (Bld) [Entitic vol] 9.8 fL Normal 9.5-13.5 [facility] Comment on above: Performed By: #### D ATLIPI, DATPSA, DATBMP #### [facility] [address] [place] [address] Dr. Power Covarrubias PLT 199 103/ul Normal 150-450 [facility] Comment on above: Performed By: #### D ATLIPI, DATPSA, DATBMP #### [facility] [address] [place] [address] Dr. Power Covarrubias RBC 4.04 106/ul Critically low 4.70-6.10 [facility] Comment on above: Performed By: #### D ATLIPI, DATPSA, DATBMP #### [facility] [address] [place] [address] Dr. Power Covarrubias WBC 5.3 103/ul Normal 4.0-11.0 [facility] Comment on above: Performed By: #### D ATLIPI, DATPSA, DATBMP #### [facility] [address] [place] [address] Dr. Power Covarrubias PROF 14(COMP METB)on 023 Albumin [Mass/Vol] 3.3 g/dL Critically low 3.4-5.0 [facility] Comment on above: Performed By: #### C MP #### [facility] [address] [place] [address] Dr. Power Covarrubias Albumin/Globulin [Mass ratio] 0.9 {ratio} Normal [facility] Comment on above: Performed By: #### C MP #### [facility] [address] [place] [address] Dr. Power Covarrubias ALP [Catalytic activity/Vol] 99 U/L Normal 46-116 [facility] Comment on above: Performed By: #### C MP #### [facility] [address] [address] [address] Power Covarrubias ALT [Catalytic activity/Vol] 17 U/L Normal 16-63 [facility] Comment on above: Performed By: #### C MP #### [facility] [address] [address] [address] Power Covarrubias Anion gap [Moles/Vol] 11.6 mmol/L Normal [facility] Comment on above: Performed By: #### C MP #### [facility] [address] [address] [address] Power Covarrubias AST [Catalytic activity/Vol] 15 U/L Normal 15-37 [facility] Comment on above: Performed By: #### C MP #### [facility] [address] [place] [address] Dr. Power Covarrubias Bilirubin [Mass/Vol] 0.6 mg/dL Normal 0.2-1.0 [facility] Comment on above: Performed By: #### C MP #### [facility] [address] [address] [address] Power Covarrubias Calcium [Mass/Vol] 9.4 mg/dL Normal 8.5-10.1 [facility] Comment on above: Performed By: #### C MP #### [facility] [address] [address] [address] Power Covarrubias Chloride [Moles/Vol] 107 mmol/L Normal 98-107 [facility] Comment on above: Performed By: #### C MP #### [facility] [address] [address] [address] Power Covarrubias CO2 [Moles/Vol] 29.2 mmol/L Normal 21.0-32.0 [facility] Comment on above: Performed By: #### C MP #### [facility] [address] [address] [address] Power Covarrubias Creatinine [Mass/Vol] 0.87 mg/dL Normal 0.70-1.30 [facility] Comment on above: Performed By: #### C MP #### [facility] [address] [address] [address] Power Covarrubias EGFR-AF GUAMANIAN >60 Normal >=60 [facility] Comment on above: Performed By: #### C MP #### [facility] [address] [address] [address] Power Covarrubias EGFR-NON AF GUAMANIAN >60 Normal >=60 [facility] Comment on above: Performed By: #### C MP #### [facility] [address] [address] [address] Power Covarrubias Globulin (S) [Mass/Vol] 3.6 g/dL Normal [facility] Comment on above: Performed By: #### C MP #### [facility] [address] [address] [address] Power Covarrubias Glucose [Mass/Vol] 107 mg/dL Critically high 74-106 [facility] Comment on above: Performed By: #### C MP #### [facility] [address] [address] [address] Power Covarrubias Potassium [Moles/Vol] 3.8 mmol/L Normal 3.5-5.1 [facility] Comment on above: Performed By: #### C MP #### [facility] [address] [address] [address] Power Covarrubias Protein [Mass/Vol] 6.9 g/dL Normal 6.4-8.2 [facility] Comment on above: Performed By: #### C MP #### [facility] [address] [address] [address] Power Covarrubias Sodium [Moles/Vol] 144 mmol/L Normal 136-145 [facility] Comment on above: Performed By: #### C MP #### [facility] [address] [address] [address] Power Covarrubias Urea nitrogen [Mass/Vol] 12.0 mg/dL Normal 7.0-18.0 [facility] Comment on above: Performed By: #### C MP #### [facility] [address] [place] [address] Dr. Power Covarrubias Urea nitrogen/Creatinine [Mass ratio] 13.8 mg/mg Normal [facility] Comment on above: Performed By: #### C MP #### [facility] [address] [place] [address] Dr. Power Covarrubias CBC AUTO DIFFon 08-31-2022 BASO # 0.0 103/ul Normal 0.0-0.1 [facility] Comment on above: Performed By: #### D ATLIPI, DATPSA, DATBMP #### [facility] [address] [place] [address] Dr. Power Covarrubias Basophils/100 WBC (Bld) 0.7 % Normal 0.2-2.0 [facility] Comment on above: Performed By: #### D ATLIPI, DATPSA, DATBMP #### [facility] [address] [place] [address] Dr. Power Covarrubias EO # 0.2 103/ul Normal 0.0-0.7 [facility] Comment on above: Performed By: #### D ATLIPI, DATPSA, DATBMP #### [facility] [address] [place] [address] Dr. Power Covarrubias Eosinophils/100 WBC (Bld) 3.5 % Normal 0.9-7.0 [facility] Comment on above: Performed By: #### D ATLIPI, DATPSA, DATBMP #### [facility] [address] [place] [address] Dr. Power Covarrubias Erythrocyte distribution width (RBC) [Ratio] 13.2 % Normal 11.0-15.0 [facility] Comment on above: Performed By: #### D ATLIPI, DATPSA, DATBMP #### [facility] [address] [place] [address] Dr. Power Covarrubias Hematocrit (Bld) [Volume fraction] 39.3 % Critically low 42.0-54.0 [facility] Comment on above: Performed By: #### D ATLIPI, DATPSA, DATBMP #### [facility] [address] [place] [address] Dr. Power Covarrubias Hemoglobin (Bld) [Mass/Vol] 12.9 g/dL Critically low 14.0-18.0 [facility] Comment on above: Performed By: #### D ATLIPI, DATPSA, DATBMP #### [facility] [address] [place] [address] Dr. Power Covarrubias IG # 0.02 10e3/ul Normal 0.00-0.03 [facility] Comment on above: Performed By: #### D ATLIPI, DATPSA, DATBMP #### [facility] [address] [place] [address] Dr. Power Covarrubias IG % 0.4 % Normal 0.0-0.5 [facility] Comment on above: Performed By: #### D ATLIPI, DATPSA, DATBMP #### [facility] [address] [place] [address] Dr. Power Covarrubias LYMPH # 0.9 103/ul Critically low 1.2-3.8 [facility] Comment on above: Performed By: #### D ATLIPI, DATPSA, DATBMP #### [facility] [address] [place] [address] Dr. Power Covarrubias Lymphocytes/100 WBC (Bld) 16.4 % Critically low 20.5-60.0 [facility] Comment on above: Performed By: #### D ATLIPI, DATPSA, DATBMP #### [facility] [address] [place] [address] Dr. Power Covarrubias MCH (RBC) [Entitic mass] 30.7 pg Normal 25.9-34.0 [facility] Comment on above: Performed By: #### D ATLIPI, DATPSA, DATBMP #### [facility] [address] [place] [address] Dr. Power Covarrubias MCHC (RBC) [Mass/Vol] 32.8 g/dL Normal 29.9-35.2 [facility] Comment on above: Performed By: #### D ATLIPI, DATPSA, DATBMP #### [facility] [address] [place] [address] Dr. Power Covarrubias MCV (RBC) [Entitic vol] 93.6 fL Normal 80.0-94.0 [facility] Comment on above: Performed By: #### D ATLIPI, DATPSA, DATBMP #### [facility] [address] [place] [address] Dr. Power Covarrubias MONO # 0.5 103/ul Normal 0.3-0.8 [facility] Comment on above: Performed By: #### D ATLIPI, DATPSA, DATBMP #### [facility] [address] [place] [address] Dr. Power Covarrubias Monocytes/100 WBC (Bld) 9.0 % Normal 1.7-12.0 [facility] Comment on above: Performed By: #### D ATLIPI, DATPSA, DATBMP #### [facility] [address] [place] [address] Dr. Power Covarrubias NEUT # 3.8 103/ul Normal 1.4-6.5 [facility] Comment on above: Performed By: #### D ATLIPI, DATPSA, DATBMP #### [facility] [address] [place] [address] Dr. Power Covarrubias Neutrophils/100 WBC (Bld) 70.0 % Normal 43.0-75.0 [facility] Comment on above: Performed By: #### D ATLIPI, DATPSA, DATBMP #### [facility] [address] [place] [address] Dr. Power Covarrubias Platelet mean volume (Bld) [Entitic vol] 9.9 fL Normal 9.5-13.5 [facility] Comment on above: Performed By: #### D ATLIPI, DATPSA, DATBMP #### [facility] [address] [place] [address] Dr. Power Covarrubias PLT 195 103/ul Normal 150-450 [facility] Comment on above: Performed By: #### D ATLIPI, DATPSA, DATBMP #### [facility] [address] [address] [address] Power Covarrubias RBC 4.20 106/ul Critically low 4.70-6.10 [facility] Comment on above: Performed By: #### D ATLIPI, DATPSA, DATBMP #### [facility] [address] [address] [address] Power Covarrubias WBC 5.4 103/ul Normal 4.0-11.0 [facility] Comment on above: Performed By: #### D ATLIPI, DATPSA, DATBMP #### [facility] [address] [address] [address] Power Covarrubias BRE- BMP WITH LIPIDon 2021 Anion gap [Moles/Vol] 10.8 mmol/L Normal [facility] Comment on above: Performed By: #### D ATLIPI, DATPSA, DATBMP #### [facility] [address] [address] [address] Power Covarrubias Calcium [Mass/Vol] 9.3 mg/dL Normal 8.5-10.1 [facility] Comment on above: Performed By: #### D ATLIPI, DATPSA, DATBMP #### [facility] [address] [place] [address] Dr. Power Covarrubias Chloride [Moles/Vol] 105 mmol/L Normal 98-107 [facility] Comment on above: Performed By: #### D ATLIPI, DATPSA, DATBMP #### [facility] [address] [address] [address] Power Covarrubias Cholesterol [Mass/Vol] 123 mg/dL Normal <=200 [facility] Comment on above: Performed By: #### D ATLIPI, DATPSA, DATBMP #### [facility] [address] [place] [address] Dr. Power Covarrubias Cholesterol in HDL [Mass/Vol] 51 mg/dL Normal 40-60 [facility] Comment on above: Performed By: #### D ATLIPI, DATPSA, DATBMP #### [facility] [address] [address] [address] Power Covarrubias Cholesterol in LDL [Mass/Vol] 56.0 mg/dL Normal [facility] Comment on above: Performed By: #### D ATLIPI, DATPSA, DATBMP #### [facility] [address] [address] [address] Power Covarrubias CO2 [Moles/Vol] 28.2 mmol/L Normal 21.0-32.0 [facility] Comment on above: Performed By: #### D ATLIPI, DATPSA, DATBMP #### [facility] [address] [place] [address] Dr. Power Covarrubias Creatinine [Mass/Vol] 0.86 mg/dL Normal 0.70-1.30 [facility] Comment on above: Performed By: #### D ATLIPI, DATPSA, DATBMP #### [facility] [address] [place] [address] Dr. Power Covarrubias EGFR-AF GUAMANIAN >60 Normal >=60 [facility] Comment on above: Performed By: #### D ATLIPI, DATPSA, DATBMP #### [facility] [address] [place] [address] Dr. Power Covarrubias EGFR-NON AF GUAMANIAN >60 Normal >=60 [facility] Comment on above: Performed By: #### D ATLIPI, DATPSA, DATBMP #### [facility] [address] [place] [address] Dr. Power Covarrubias Glucose [Mass/Vol] 90 mg/dL Normal 74-106 [facility] Comment on above: Performed By: #### D ATLIPI, DATPSA, DATBMP #### [facility] [address] [place] [address] Dr. Power Covarrubias HDL NORMAL > or = 60 mg/dl - LO W CARDIOVASCULAR RISK <40 mg/dl - HIGH CARDIOVASCULAR RISK Normal [facility] Comment on above: Performed By: #### D ATLIPI, DATPSA, DATBMP #### [facility] [address] [place], [place] [id number] Dr. Power Covarrubias LDL CALC NORMAL SEE BELOW Normal [facility] Comment on above: Result Comment: <100 mg/dl OPTIMAL 100 - 129 mg/dl NEAR OR ABOVE OPTIMAL 130 - 159 mg/dl BORDERLINE HIGH 160 - 189 mg/dl HIGH >190 mg/dl VERY HIGH Performed By: #### D ATLIPI, DATPSA, DATBMP #### [facility] [address] [address] [address] Power Covarrubias Potassium [Moles/Vol] 4.0 mmol/L Normal 3.5-5.1 [facility] Comment on above: Performed By: #### D ATLIPI, DATPSA, DATBMP #### [facility] [address] [address] [address] Power Covarrubias Sodium [Moles/Vol] 140 mmol/L Normal 136-145 [facility] Comment on above: Performed By: #### D ATLIPI, DATPSA, DATBMP #### [facility] [address] [address] [address] Power Covarrubias Triglyceride [Mass/Vol] 80 mg/dL Normal <=150 [facility] Comment on above: Performed By: #### D ATLIPI, DATPSA, DATBMP #### [facility] [address] [place] [address] Dr. Power Covarrubias Urea nitrogen [Mass/Vol] 14.0 mg/dL Normal 7.0-18.0 [facility] Comment on above: Performed By: #### D ATLIPI, DATPSA, DATBMP #### [facility] [address] [address] [address] Power Covarrubias Urea nitrogen/Creatinine [Mass ratio] 16.3 mg/mg Normal [facility] Comment on above: Performed By: #### D ATLIPI, DATPSA, DATBMP #### [facility] [address] [place] [address] Dr. Power Covarrubias VLDL CALC 16.0 mg/dL Normal [facility] Comment on above: Performed By: #### D ATLIPI, DATPSA, DATBMP #### [facility] [address] [place] [address] Dr. Power Covarrubias OCC BLD IMMUNO SCREENon 06-16 OCCULT BLOOD Negative Normal NEGATIVE [facility] Comment on above: Performed By: #### O BSCRN #### [facility] [address] [place] [address] Dr. Power Covarrubias T4 LABCORPon 06-30-2022 T4 [Mass/Vol] 9.2 ug/dL Normal 4.5-12.0 [facility] Comment on above: Performed By: #### D ATLIPI, DATPSA, DATBMP #### [facility] [address] [place] [address] Dr. Power Covarrubias CBC AUTO DIFFon 06-29-2022 BASO # 0.0 103/ul Normal 0.0-0.1 [facility] Comment on above: Performed By: #### D ATLIPI, DATPSA, DATBMP #### [facility] [address] [place] [address] Dr. Power Covarrubias Basophils/100 WBC (Bld) 0.5 % Normal 0.2-2.0 [facility] Comment on above: Performed By: #### D ATLIPI, DATPSA, DATBMP #### [facility] [address] [place] [address] Dr. Power Covarrubias EO # 0.1 103/ul Normal 0.0-0.7 [facility] Comment on above: Performed By: #### D ATLIPI, DATPSA, DATBMP #### [facility] [address] [place] [address] Dr. Power Covarrubias Eosinophils/100 WBC (Bld) 2.5 % Normal 0.9-7.0 [facility] Comment on above: Performed By: #### D ATLIPI, DATPSA, DATBMP #### [facility] [address] [place] [address] Dr. Power Covarrubias Erythrocyte distribution width (RBC) [Ratio] 13.4 % Normal 11.0-15.0 [facility] Comment on above: Performed By: #### D ATLIPI, DATPSA, DATBMP #### [facility] [address] [place] [address] Dr. Power Covarrubias Hematocrit (Bld) [Volume fraction] 38.1 % Critically low 42.0-54.0 [facility] Comment on above: Performed By: #### D ATLIPI, DATPSA, DATBMP #### [facility] [address] [place] [address] Dr. Power Covarrubias Hemoglobin (Bld) [Mass/Vol] 12.0 g/dL Critically low 14.0-18.0 [facility] Comment on above: Performed By: #### D ATLIPI, DATPSA, DATBMP #### [facility] [address] [place] [address] Dr. Power Covarrubias IG # 0.01 10e3/ul Normal 0.00-0.03 [facility] Comment on above: Performed By: #### D ATLIPI, DATPSA, DATBMP #### [facility] [address] [place] [address] Dr. Power Covarrubias IG % 0.2 % Normal 0.0-0.5 [facility] Comment on above: Performed By: #### D ATLIPI, DATPSA, DATBMP #### [facility] [address] [place] [address] Dr. Power Covarrubias LYMPH # 0.9 103/ul Critically low 1.2-3.8 [facility] Comment on above: Performed By: #### D ATLIPI, DATPSA, DATBMP #### [facility] [address] [place] [address] Dr. Power Covarrubias Lymphocytes/100 WBC (Bld) 15.5 % Critically low 20.5-60.0 [facility] Comment on above: Performed By: #### D ATLIPI, DATPSA, DATBMP #### [facility] [address] [place] [address] Dr. Power Covarrubias MANUAL DIFF REQ NO Normal [facility] Comment on above: Performed By: #### D ATLIPI, DATPSA, DATBMP #### [facility] [address] [place] [address] Dr. Power Covarrubias MCH (RBC) [Entitic mass] 30.2 pg Normal 25.9-34.0 [facility] Comment on above: Performed By: #### D ATLIPI, DATPSA, DATBMP #### [facility] [address] [place] [address] Dr. Power Covarrubias MCHC (RBC) [Mass/Vol] 31.5 g/dL Normal 29.9-35.2 [facility] Comment on above: Performed By: #### D ATLIPI, DATPSA, DATBMP #### [facility] [address] [place] [address] Dr. Power Covarrubias MCV (RBC) [Entitic vol] 96.0 fL Critically high 80.0-94.0 [facility] Comment on above: Performed By: #### D ATLIPI, DATPSA, DATBMP #### [facility] [address] [place] [address] Dr. Powre Covarrubias MONO # 0.5 103/ul Normal 0.3-0.8 [facility] Comment on above: Performed By: #### D ATLIPI, DATPSA, DATBMP #### [facility] [address] [place] [address] Dr. Power Covarrubias Monocytes/100 WBC (Bld) 9.5 % Normal 1.7-12.0 [facility] Comment on above: Performed By: #### D ATLIPI, DATPSA, DATBMP #### [facility] [address] [place] [address] Dr. Power Covarrubias NEUT # 4.1 103/ul Normal 1.4-6.5 [facility] Comment on above: Performed By: #### D ATLIPI, DATPSA, DATBMP #### [facility] [address] [place] [address] Dr. Power Covarrubias Neutrophils/100 WBC (Bld) 71.8 % Normal 43.0-75.0 [facility] Comment on above: Performed By: #### D ATLIPI, DATPSA, DATBMP #### [facility] [address] [address] [address] Power Covarrubias Platelet mean volume (Bld) [Entitic vol] 9.8 fL Normal 9.5-13.5 [facility] Comment on above: Performed By: #### D ATLIPI, DATPSA, DATBMP #### [facility] [address] [address] [address] Power Covarrubias PLT 212 103/ul Normal 150-450 [facility] Comment on above: Performed By: #### D ATLIPI, DATPSA, DATBMP #### [facility] [address] [address] [address] Power Covarrubias RBC 3.97 106/ul Critically low 4.70-6.10 [facility] Comment on above: Performed By: #### D ATLIPI, DATPSA, DATBMP #### [facility] [address] [address] [address] Power Covarrubias WBC 5.7 103/ul Normal 4.0-11.0 [facility] Comment on above: Performed By: #### D ATLIPI, DATPSA, DATBMP #### [facility] [address] [place] [address] Dr. Power Covarrubias FREE T3on 06-29-2022 FREE T3 2.73 pg/mlL Normal 2.18-3.98 [facility] Comment on above: Performed By: #### D ATLIPI, DATPSA, DATBMP #### [facility] [address] [place] [address] Dr. Power Covarrubias GLYCOHEMOGLOBIN A1Con 2021 ADA RECOMMENDATION SEE BELOW Normal [facility] Comment on above: Result Comment: ADA RECOMMENDED LIMIT 4.0 - 6.0 ADA THERAPEUTIC TARGET < 7.0 ACTION SUGGESTED > 7.0 Performed By: #### A 1C #### [facility] [address] [address] [address] Power Covarrubias Glucose [Mass/Vol] 114 mg/dL Normal [facility] Comment on above: Performed By: #### A 1C #### [facility] [address] [address] [address] Power Covarrubias HbA1c (Bld) [Mass fraction] 5.6 % Normal 4.5-6.2 [facility] Comment on above: Performed By: #### A 1C #### [facility] [address] [address] [address] Power Covarrubias LIPID PROFILEon 06-29-2022 CHOL-HDL RATIO NORM SEE BELOW Normal [facility] Comment on above: Result Comment: 3.3 - 4.4 LOW RISK 4.4 - 7.1 AVERAGE RISK 7.1 - 11.0 MODERATE RISK >11.0 HIGH RISK Performed By: #### D ATLIPI, DATPSA, DATBMP #### [facility] [address] [address] [address] Power Covarrubias Cholesterol [Mass/Vol] 110 mg/dL Normal <=200 [facility] Comment on above: Performed By: #### D ATLIPI, DATPSA, DATBMP #### [facility] [address] [address] [address] Power Covarrubias Cholesterol in HDL [Mass/Vol] 47 mg/dL Normal 40-60 [facility] Comment on above: Performed By: #### D ATLIPI, DATPSA, DATBMP #### [facility] [address] [address] [address] Power Covarrubias Cholesterol in LDL [Mass/Vol] 51.2 mg/dL Normal [facility] Comment on above: Performed By: #### D ATLIPI, DATPSA, DATBMP #### [facility] [address] [address] [address] Power Covarrubias Cholesterol.total/Ch olesterol in HDL [Mass ratio] 2.3 {ratio} Normal [facility] Comment on above: Performed By: #### D ATLIPI, DATPSA, DATBMP #### [facility] [address] [address] [address] Power Covarrubias HDL NORMAL > or = 60 mg/dl - LO W CARDIOVASCULAR RISK <40 mg/dl - HIGH CARDIOVASCULAR RISK Normal [facility] Comment on above: Performed By: #### D ATLIPI, DATPSA, DATBMP #### [facility] [address] [place] [address] Dr. Power Covarrubias LDL CALC NORMAL SEE BELOW Normal [facility] Comment on above: Result Comment: <100 mg/dl OPTIMAL 100 - 129 mg/dl NEAR OR ABOVE OPTIMAL 130 - 159 mg/dl BORDERLINE HIGH 160 - 189 mg/dl HIGH >190 mg/dl VERY HIGH Performed By: #### D ATLIPI, DATPSA, DATBMP #### [facility] [address] [address] [address] Power Covarrubias Triglyceride [Mass/Vol] 59 mg/dL Normal <=150 [facility] Comment on above: Performed By: #### D ATLIPI, DATPSA, DATBMP #### [facility] [address] [place] [address] Dr. Power Covarrubias VLDL CALC 11.8 mg/dL Normal [facility] Comment on above: Performed By: #### D ATLIPI, DATPSA, DATBMP #### [facility] [address] [place] [address] Dr. Power Covarrubias PROF 14(COMP METB)on 022 Albumin [Mass/Vol] 3.3 g/dL Critically low 3.4-5.0 [facility] Comment on above: Performed By: #### D ATLIPI, DATPSA, DATBMP #### [facility] [address] [place] [address] Dr. Power Covarrubias Albumin/Globulin [Mass ratio] 0.9 {ratio} Normal [facility] Comment on above: Performed By: #### D ATLIPI, DATPSA, DATBMP #### [facility] [address] [place] [address] Dr. Power Covarrubias ALP [Catalytic activity/Vol] 100 U/L Normal 46-116 [facility] Comment on above: Performed By: #### D ATLIPI, DATPSA, DATBMP #### [facility] [address] [address] [address] Power Covarrubias ALT [Catalytic activity/Vol] 16 U/L Normal 16-63 [facility] Comment on above: Performed By: #### D ATLIPI, DATPSA, DATBMP #### [facility] [address] [address] [address] Power Covarrubias Anion gap [Moles/Vol] 11.4 mmol/L Normal [facility] Comment on above: Performed By: #### D ATLIPI, DATPSA, DATBMP #### [facility] [address] [address] [address] Power Covarrubias AST [Catalytic activity/Vol] 14 U/L Critically low 15-37 [facility] Comment on above: Performed By: #### D ATLIPI, DATPSA, DATBMP #### [facility] [address] [place] [address] Dr. Power Covarrubias Bilirubin [Mass/Vol] 0.7 mg/dL Normal 0.2-1.0 [facility] Comment on above: Performed By: #### D ATLIPI, DATPSA, DATBMP #### [facility] [address] [address] [address] Power Covarrubias Calcium [Mass/Vol] 9.0 mg/dL Normal 8.5-10.1 [facility] Comment on above: Performed By: #### D ATLIPI, DATPSA, DATBMP #### [facility] [address] [address] [address] Power Covarrubias Chloride [Moles/Vol] 107 mmol/L Normal 98-107 [facility] Comment on above: Performed By: #### D ATLIPI, DATPSA, DATBMP #### [facility] [address] [address] [address] Power Covarrubias CO2 [Moles/Vol] 28.5 mmol/L Normal 21.0-32.0 [facility] Comment on above: Performed By: #### D ATLIPI, DATPSA, DATBMP #### [facility] [address] [place] [address] Dr. Power Covarrubias Creatinine [Mass/Vol] 0.87 mg/dL Normal 0.70-1.30 [facility] Comment on above: Performed By: #### D ATLIPI, DATPSA, DATBMP #### [facility] [address] [place] [address] Dr. Power Covarrubias EGFR-AF GUAMANIAN >60 Normal >=60 [facility] Comment on above: Performed By: #### D ATLIPI, DATPSA, DATBMP #### [facility] [address] [place] [address] Dr. Power Covarrubias EGFR-NON AF GUAMANIAN >60 Normal >=60 [facility] Comment on above: Performed By: #### D ATLIPI, DATPSA, DATBMP #### [facility] [address] [place] [address] Dr. Power Covarrubias Globulin (S) [Mass/Vol] 3.6 g/dL Normal [facility] Comment on above: Performed By: #### D ATLIPI, DATPSA, DATBMP #### [facility] [address] [place] [address] Dr. Power Covarrubias Glucose [Mass/Vol] 90 mg/dL Normal 74-106 [facility] Comment on above: Performed By: #### D ATLIPI, DATPSA, DATBMP #### [facility] [address] [place] [address] Dr. Power Covarrubias Potassium [Moles/Vol] 3.9 mmol/L Normal 3.5-5.1 [facility] Comment on above: Performed By: #### D ATLIPI, DATPSA, DATBMP #### [facility] [address] [place] [address] Dr. Power Covarrubias Protein [Mass/Vol] 6.9 g/dL Normal 6.4-8.2 [facility] Comment on above: Performed By: #### D ATLIPI, DATPSA, DATBMP #### [facility] [address] [place] [address] Dr. Power Covarrubias Sodium [Moles/Vol] 143 mmol/L Normal 136-145 [facility] Comment on above: Performed By: #### D ATLMACK DATPSA, DATBMP #### [facility] [address] [place] [address] Dr. Power Covarrubias Urea nitrogen [Mass/Vol] 13.0 mg/dL Normal 7.0-18.0 [facility] Comment on above: Performed By: #### D ATLIPI DATPSA, DATBMP #### [facility] [address] [place] [address] Dr. Power Covarrubias Urea nitrogen/Creatinine [Mass ratio] 14.9 mg/mg Normal [facility] Comment on above: Performed By: #### D ATLMACK DATPSA, DATBMP #### [facility] [address] [place] [address] Dr. Power Covarrubias TSHon 06-29-2022 TSH 2.585 uIU/mL Normal 0.358-3.740 [facility] Comment on above: Performed By: #### T SH, LIPID, FT3, CMP #### [facility] [address] [place] [address] Dr. Power Covarrubias CBC AUTO DIFFon 04-09-2022 BASO # 0.1 103/ul Normal 0.0-0.1 [facility] Comment on above: Performed By: #### D ATCBC #### [facility] [address] [place] [address] Dr. Power Covarrubias Basophils/100 WBC (Bld) 1.0 % Normal 0.2-2.0 [facility] Comment on above: Performed By: #### D ATCBC #### [facility] [address] [place] [address] Dr. Power Covarrubias EO # 0.2 103/ul Normal 0.0-0.7 [facility] Comment on above: Performed By: #### D ATCBC #### [facility] [address] [place] [address] Dr. Power Covarrubias Eosinophils/100 WBC (Bld) 3.7 % Normal 0.9-7.0 [facility] Comment on above: Performed By: #### D ATCBC #### [facility] [address] [place] [address] Dr. Power Covarrubias Erythrocyte distribution width (RBC) [Ratio] 13.3 % Normal 11.0-15.0 [facility] Comment on above: Performed By: #### D ATCBC #### [facility] [address] [place] [address] Dr. Power Covarrubias Hematocrit (Bld) [Volume fraction] 37.8 % Critically low 42.0-54.0 [facility] Comment on above: Performed By: #### D ATCBC #### [facility] [address] [place] [address] Dr. Power Covarrubias Hemoglobin (Bld) [Mass/Vol] 12.4 g/dL Critically low 14.0-18.0 [facility] Comment on above: Performed By: #### D ATCBC #### [facility] [address] [place] [address] Dr. Power Covarrubias IG # 0.01 10e3/ul Normal 0.00-0.03 [facility] Comment on above: Performed By: #### D ATCBC #### [facility] [address] [place] [address] Dr. Power Covarrubias IG % 0.2 % Normal 0.0-0.5 [facility] Comment on above: Performed By: #### D ATCBC #### [facility] [address] [place] [address] Dr. Power Covarrubias LYMPH # 1.0 103/ul Critically low 1.2-3.8 [facility] Comment on above: Performed By: #### D ATCBC #### [facility] [address] [place] [address] Dr. Power Covarrubias Lymphocytes/100 WBC (Bld) 19.0 % Critically low 20.5-60.0 [facility] Comment on above: Performed By: #### D ATCBC #### [facility] [address] [place] [address] Dr. Power Covarrubias MCH (RBC) [Entitic mass] 30.9 pg Normal 25.9-34.0 [facility] Comment on above: Performed By: #### D ATCBC #### [facility] [address] [place] [address] Dr. Power Covarrubias MCHC (RBC) [Mass/Vol] 32.8 g/dL Normal 29.9-35.2 [facility] Comment on above: Performed By: #### D ATCBC #### [facility] [address] [place] [address] Dr. Power Covarrubias MCV (RBC) [Entitic vol] 94.3 fL Critically high 80.0-94.0 [facility] Comment on above: Performed By: #### D ATCBC #### [facility] [address] [place] [address] Dr. Power Covarrubias MONO # 0.5 103/ul Normal 0.3-0.8 [facility] Comment on above: Performed By: #### D ATCBC #### [facility] [address] [place] [address] Dr. Power Covarrubias Monocytes/100 WBC (Bld) 9.4 % Normal 1.7-12.0 [facility] Comment on above: Performed By: #### D ATCBC #### [facility] [address] [place] [address] Dr. Power Covarrubias NEUT # 3.4 103/ul Normal 1.4-6.5 [facility] Comment on above: Performed By: #### D ATCBC #### [facility] [address] [place] [address] Dr. Power Covarrubias Neutrophils/100 WBC (Bld) 66.7 % Normal 43.0-75.0 [facility] Comment on above: Performed By: #### D ATCBC #### [facility] [address] [place] [address] Dr. Power Covarrubias Platelet mean volume (Bld) [Entitic vol] 9.9 fL Normal 9.5-13.5 [facility] Comment on above: Performed By: #### D ATCBC #### [facility] [address] [address] [address] Power Covarrubias PLT 205 103/ul Normal 150-450 [facility] Comment on above: Performed By: #### D ATCBC #### [facility] [address] [address] [address] Power Covarrubias RBC 4.01 106/ul Critically low 4.70-6.10 [facility] Comment on above: Performed By: #### D ATCBC #### [facility] [address] [address] [address] Power Covarrubias WBC 5.1 103/ul Normal 4.0-11.0 [facility] Comment on above: Performed By: #### D ATCBC #### [facility] [address] [place] [address] Dr. Power Covarrubias BRE- BMP WITH LIPIDon 2021 Anion gap [Moles/Vol] 9.5 mmol/L Normal [facility] Comment on above: Performed By: #### D ATLIPI, DATPSA, DATBMP #### [facility] [address] [place] [address] Dr. Power Covarrubias Calcium [Mass/Vol] 9.0 mg/dL Normal 8.5-10.1 [facility] Comment on above: Performed By: #### D ATLIPI, DATPSA, DATBMP #### [facility] [address] [place] [address] Dr. Power Covarrubias Chloride [Moles/Vol] 108 mmol/L Critically high 98-107 [facility] Comment on above: Performed By: #### D ATLIPI, DATPSA, DATBMP #### [facility] [address] [place] [address] Dr. Power Covarrubias Cholesterol [Mass/Vol] 114 mg/dL Normal <=200 [facility] Comment on above: Performed By: #### D ATLIPI, DATPSA, DATBMP #### [facility] [address] [place] [address] Dr. Power Covarrubias Cholesterol in HDL [Mass/Vol] 49 mg/dL Normal 40-60 [facility] Comment on above: Performed By: #### D ATLIPI, DATPSA, DATBMP #### [facility] [address] [address] [address] Power Covarrubias Cholesterol in LDL [Mass/Vol] 50.4 mg/dL Normal [facility] Comment on above: Performed By: #### D ATLIPI, DATPSA, DATBMP #### [facility] [address] [place] [address] Dr. Power Covarrubias CO2 [Moles/Vol] 28.3 mmol/L Normal 21.0-32.0 [facility] Comment on above: Performed By: #### D ATLIPI, DATPSA, DATBMP #### [facility] [address] [place] [address] Dr. Power Covarrubias Creatinine [Mass/Vol] 0.88 mg/dL Normal 0.70-1.30 [facility] Comment on above: Performed By: #### D ATLIPI, DATPSA, DATBMP #### [facility] [address] [place] [address] Dr. Power Covarrubias EGFR-AF GUAMANIAN >60 Normal >=60 [facility] Comment on above: Performed By: #### D ATLIPI, DATPSA, DATBMP #### [facility] [address] [place] [address] Dr. Power Covarrubias EGFR-NON AF GUAMANIAN >60 Normal >=60 [facility] Comment on above: Performed By: #### D ATLIPI, DATPSA, DATBMP #### [facility] [address] [place] [address] Dr. Power Covarrubias Glucose [Mass/Vol] 107 mg/dL Critically high 74-106 [facility] Comment on above: Performed By: #### D ATLIPI, DATPSA, DATBMP #### [facility] [address] [place] [address] Dr. Power Covarrubias HDL NORMAL > or = 60 mg/dl - LO W CARDIOVASCULAR RISK <40 mg/dl - HIGH CARDIOVASCULAR RISK Normal [facility] Comment on above: Performed By: #### D ATLIPI, DATPSA, DATBMP #### [facility] [address] [address] [address] Power Covarrubias LDL CALC NORMAL SEE BELOW Normal [facility] Comment on above: Result Comment: <100 mg/dl OPTIMAL 100 - 129 mg/dl NEAR OR ABOVE OPTIMAL 130 - 159 mg/dl BORDERLINE HIGH 160 - 189 mg/dl HIGH >190 mg/dl VERY HIGH Performed By: #### D ATLIPI, DATPSA, DATBMP #### [facility] [address] [address] [address] Power Covarrubias Potassium [Moles/Vol] 3.8 mmol/L Normal 3.5-5.1 [facility] Comment on above: Performed By: #### D ATLIPI, DATPSA, DATBMP #### [facility] [address] [address] [address] Power Covarrubias Sodium [Moles/Vol] 142 mmol/L Normal 136-145 [facility] Comment on above: Performed By: #### D ATLIPI, DATPSA, DATBMP #### [facility] [address] [address] [address] Power Covarrubias Triglyceride [Mass/Vol] 73 mg/dL Normal <=150 [facility] Comment on above: Performed By: #### D ATLIPI, DATPSA, DATBMP #### [facility] [address] [address] [address] Power Covarrubias Urea nitrogen [Mass/Vol] 12.0 mg/dL Normal 7.0-18.0 [facility] Comment on above: Performed By: #### D ATLIPI, DATPSA, DATBMP #### [facility] [address] [address] [address] Power Covarrubias Urea nitrogen/Creatinine [Mass ratio] 13.6 mg/mg Normal [facility] Comment on above: Performed By: #### D ATLIPI, DATPSA, DATBMP #### [facility] [address] [address] [address] Power Covarrubias VLDL CALC 14.6 mg/dL Normal [facility] Comment on above: Performed By: #### D ATLIPI, DATPSA, DATBMP #### [facility] [address] [place], [place] [address] Dr. Power Covarrubias Cardiovascular Lab Reporton 07-03-2020 Cardiovascular Lab Report [facility] Patient Name: Oscar Cox [facility] MR #: [id number] Physician: Shiloh Hester, Department of M.D. Medicine Service Date: 07/03/2020 Division of Birthdate: 1945 Cardiology Room #: Adult Cardiovascular Services [facility] [address]. [place], [place] [address] Cardiovascular Laboratory Report FINAL IMPRESSIONS: 1. Mlzw-cn-fwoeymzo 3-vessel coronary artery disease. 2. Jdpl-ea-fkrtkvtg left main coronary artery disease that appears [...] Follow up with Dr. Hester in the [facility] in the next 1 to 2 months. [...] to access the left radial artery. A 6-Mauritanian glide sheath was inserted without difficulty. Resistance [...] P/Shiloh Hester M.D. Date Trans: 07/03/2020 02:42 P/anibal [id number] cc: Neo Gould M.D. [address] [place] [id number] [facility] Vital Signs Date Time Vital Sign Value Performing Clinician Zbigniew stinson 03-28-2023 14:23-0400 Blood Pressure Location Zhang NILL [facility] 03-28-2023 14:23-0400 Diastolic blood pressure 60 mm[Hg] Zhang NILL [facility] 03-28-2023 14:23-0400 Heart rate 60 /min Zhang NILL [facility] 03-28-2023 14:23-0400 Respiratory rate 16 /min Zhang NILL [facility] 03-28-2023 14:23-0400 Systolic blood pressure 116 mm[Hg] Zhang NILL [facility] Encounters Encounter Date Encounter Type Care Provider Facility Start: 12-13-2023 End: 12-13-2023 ambulatory [facility] Start: 11-27-2023 End: 11-27-2023 ambulatory [facility] Start: 09-13-2023 ambulatory Neo Gould Facility:[facility] Start: 06-15-2023 ambulatory Zhang NILL Facility:[facility] Start: 06-01-2023 End: 06-01-2023 ambulatory [facility] Start: 05-09-2023 ambulatory Zhang R NILL Facility :[facility] [place] Start: 04-26-2023 End: 04-27-2023 ambulatory Zhang R NILL Facility:[id number] Start: 03-28-2023 End: 03-29-2023 ambulatory Zhang R NILL Facility:[facility] [place] Start: 03-28-2023 End: 03-28-2023 Patient encounter procedure Zhang R NILL [facility] Start: 03-03-2023 ambulatory Eno Hoy Facility:[facility] [place] Start: 03-03-2023 End: 03-04-2023 [...] By: #### D ATLIPI, DATPSA, DATBMP #### [facility] [address] [place] [address] Dr. Power Covarrubias Start: 08-31-2022 PSA screening [facility] Comment on above: Performed By: #### D ATLIPI, DATPSA, DATBMP #### [facility] [address] [address] [address] Power Covarrubias Start: 06-29-2022 PSA screening PEBBLES B OES Comment on above: Performed By: #### P SASC #### [facility] [address] [address] [address] Power Covarrubias Start: 10-04-2017 Colonoscopy Zhang NG Excision of lumbar intervertebral disc Zhang DENISE Comment on above: L5 Repair of hip Zhang DENISE Immunizations Immunization Date Immunization Notes Care Provider Fa cility 04-29-2021 SARS-CoV-2 (COVID-19 ) mRNA BNT-162b2 vax Zhang DENISE [facility] 04-09-2021 SARS-CoV-2 (COVID-19 ) mRNA BNT-162b2 vax Zhang DENISE [facility] Payers Date Payer Category Payer Unknown [id number] 1958 Self-pay 1958 Unknown [id number] 1945 Unknown [id number] 2.16.84 [id number] 1945 Unknown [id number] 2.16.84 [id number] 1945 Unknown [id number] 2.16.8 [id number] 1945 Unknown [id number] 2.16.8 [id number] 1945 Unknown [id number] 2.16.8 [id number] 1945 Unknown [id number] 2.16.8 [id number] 1945 Unknown [id number] 2.16.8 [id number] 1945 Unknown [id number] 2.16.8 [id number] Unknown [id number] 2.16.84 [id number] Unknown [id number] 2.16.84 [id number] Unknown [id number] 2.16.84 [id number] Social History Date Type Detail Facility Start: 03-28-2023 Tobacco smoking status Never s moked tobacco (finding) [facility] Tobacco smoking status Never Gener [facility] Sex Assigned At Male [facility] Functional Status Date Assessment Result Facility 03-28-2023 Functional Status N/A [facility] Progress note 12-13-2023 Note Date & Type [...] 07/03/2020 Cardiovascular Laboratory Report FINAL IMPRESSIONS: 1. Deek-hl-buhnkuqq 3-vessel coronary artery disease. 2. Ekpm-ks-bomtgpsm left main coronary artery disease that appears [...] atrium is sever (more content not included)... 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 His primary benzene washer is Dr Shiloh Hester. He has history [...] Latest known visit (more content not included)... [facility] Progress note 06-01-2023 Note Date & Type [...] month ago He was admitted 04/28-05/02 at [facility] following the last fall and has [...] during ho (more content not included)... [facility] Clinical Note 03-28-2023 Note Date & [...] informed consent obtained. 2. 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) hold Eliquis [...] SARS-CoV-2 (COVID-19) mRNA BNT-162b2 vax 04/09/2021 Recorded [facility] [place] [facility] Comment on above: Result Comment: Elec tronically Signed By: HOWIE LOPEZ, Zhang Yan\Date and Time Signed: 03/28/23 20:17 EDT Evaluation + Plan note Note Date & Type Note Facility Evaluation + Plan note No data available for this section [facility] Discharge instructions Note Date & Type Note Facility Hospital Discharge instructions No data available for this section [facility] Progress note Note Date & Type Note Facility Progress note No data available for this section [facility] Summary Purpose Family History No Family History [...] and content) DATE CREATED AUTHOR 07/07/2020 [facility] DATE CREATED AUTHOR AUTHOR'S ORGANIZ ATION 03/02/2023 [facility] DATE CREATED AUTHOR AUTHOR'S ORGANIZ ATION 07/23/2023 [facility] DATE CREATED AUTHOR AUTHOR'S ORGANIZ ATION 12/16/2023 [facility] Patient Care team informatio n (unrecognized section and content) Personnel Name: Neo Gould MD Address: Address: [address] [place] [address] FOR RECORDS PERTAINING TO PATIENTS WHO ARE [...] BASED ON THE PRIMARY CLINICAL RECORDS. [employer] [facility]. provides no warranty or guarantee of the accuracy or completeness of information in this document.
[2024-02-14] MEDS: ATORVASTATIN CALCIUM 40 MG TABLET 80 MG PO (20:26)
[2024-02-14] MEDS: FUROSEMIDE 40 MG TABLET PO (20:27)
[2024-02-14] MEDS: APIXABAN 5 MG TABLET PO (20:27)
[2024-02-14] MEDS: CARVEDILOL 6.25 MG TABLET PO (20:27)
[2024-02-14] MEDS: ACETAMINOPHEN 325 MG TABLET 650 MG PO (20:30)
[2024-02-14 21:26] LABS: Troponin I High Sensitivity 129.2 pg/mL (4.0-76.1)
[2024-02-15] VITALS (22 sets, daily range): BP systolic 97–154; BP diastolic 49–69; PULSE 39–120; TEMP 36.4–37.2; O2SAT 95–98
[2024-02-15 04:54] LABS: Hematocrit 32.1 % (42.0-54.0); Hemoglobin 10.2 g/dL (14.0-18.0); Mean Corpuscular HGB Conc 31.8 g/dL (29.9-35.2); Mean Corpuscular Hemoglobin 31.1 pg (25.9-34.0); Mean Corpuscular Volume 97.9 fL (80.0-94.0); Mean Platelet Volume 10.5 fL (9.5-13.5); Platelet Count 172 10^3/uL (150-450); Red Blood Count 3.28 10^6/uL (4.70-6.10); Red Cell Distribution Width 13.2 % (11.0-15.0); White Blood Count 5.8 10^3/uL (4.0-11.0)
[2024-02-15 05:05] LABS: Anion Gap 12.5; BUN Creatinine Ratio 19.8; Calcium 9.3 mg/dL (8.5-10.1); Chloride 109 mmol/L (98-107); Estimated GFR (African America >60 (>=60); Estimated GFR (Non-African Ame >60 (>=60); Glucose 95 mg/dL (74-106); Potassium 3.5 mmol/L (3.5-5.1); Sodium 143 mmol/L (136-145)
[2024-02-15 06:00] LABS: Troponin I High Sensitivity 96.4 pg/mL (4.0-76.1)
[2024-02-15] MEDS: HYDRALAZINE HCL 50 MG TABLET PO (06:21)
[2024-02-15] MEDS: FUROSEMIDE 40 MG TABLET PO ×2 (06:21→21:08)
[2024-02-15] MEDS: POTASSIUM CHLORIDE 10 MEQ ER TABLET 40 MEQ PO (08:08)
[2024-02-15] MEDS: APIXABAN 5 MG TABLET PO ×2 (08:08→21:05)
--- NOTE | 2024-02-15 08:27 | CA_ITS ---
Patient Name: JACKSON IQBAL MR#: [id number] : 1945 Exam Date: 02/15/2024 Ordering Doctor: DR Javier Gould . ECHOCARDIOGRAM REPORT PROCEDURE: CA ECHO DOPPLER COMPLETE INDICATIONS: elevated trop - possible inf wall ischemia, h/o heart failure, atrial fibrillation, hypertension, h/o prostate cancer COMPARISON: None. DESCRIPTION: COMPLETE ECHOCARDIOGRAM Real-time transthoracic echocardiography with 2D, M-mode, spectral and color flow Doppler performed. QUALITY: Technically challenging examination LEFT VENTRICLE: Normal chamber size. Mildly increased left ventricular wall thickness with sigmoid septum. LV EF: Global left ventricular systolic function is normal; visually estimated ejection fraction is 55 to 60%. Unable to assess regional wall motion abnormalities. DIASTOLIC: Unable to assess diastolic function due to underlying rhythm. ATRIAL SEPTUM: Inadequately seen. LEFT ATRIUM: Severe dilatation. RIGHT ATRIUM: Mild dilatation. RIGHT VENTRICLE: Normal chamber size. Normal systolic function. TRICUSPID VALVE: Normal mobility and thickness. No stenosis with no regurgitation. Unable to assess right-sided pressures due to lack of measurable tricuspid regurgitation. MITRAL VALVE: Mildly thickened with normal mobility. No evidence of mitral valve stenosis. There is no mitral annular calcification. Mild mitral regurgitation. AORTIC VALVE: Normal trileaflet appearance. No visible sclerosis. Normal leaflet mobility. No evidence of aortic valve stenosis. No aortic regurgitation. AORTIC ROOT: Normal diameter and appearance. PULMONIC VALVE: Normal thickness and mobility. No stenosis. No regurgitation. PERICARDIUM: Anterior free space; trivial effusion versus fat pad. IVC: Not well visualized. CONCLUSION: 1. Global left ventricular systolic function is difficult to assess but appears preserved; visually estimated ejection fraction is 55 to 60% 2. Normal right ventricular size and systolic function 3. Biatrial enlargement 4. Mildly increased left ventricular wall thickness 5. Mild mitral regurgitation 6. Anterior free space; trivial effusion versus fat pad Adult Echocardiography Procedure Report Left Ventricle LVEDD (3.7 - 5.6 cm): 4.87 cm LVESD (2.2 - 4.0 cm): 3.21 cm LVIVS thickness (0.6 - 1.2 cm): 1.58 cm LVPW thickness (0.5 - 1.0 cm): 1.01 cm e': 0.20 m/s LVOT Max Gradient: 1.62 mm[Hg] LVOT Area (cm2): 0.64 m/s Peak Velocity (LVOT): 0.64 m/s LVOT Diameter 2.42 cm Left Atrium LA Volume Index (2D A2C): 49.14 ml/m2 Left Atrium Systolic Dimension: 5.81 cm Mitral Valve Mitral Valve E-Wave Peak Velocity: 0.92 m/s Right Ventricle Aorta AO Root Diam: 3.96 cm Ascending Ao Diam: 3.28 cm Aortic Valve AoV Area (Peak Deon): 3.41 cm2, 3.41 cm2 Peak Velocity(Antegrade Flow): 0.85 m/s Peak Gradient(Antegrade Flow): 2.92 mm[Hg] Tricuspid Valve Pulmonic Valve Peak Velocity: 0.73 m/s Peak Gradient: 2.57 mm[Hg], 1.69 mm[Hg] Right Atrium Right Atrium Systolic Pressure: 48.27 ml, 48.27 ml Dictated by: Shiloh Hester M.D. on 02/15/2024 at 14:04 Approved by: Shiloh Hester M.D. on 02/15/2024 at 14:09
--- NOTE | 2024-02-15 08:27 | ECG_ITS ---
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
--- NOTE | 2024-02-15 08:29 | CM.NOTE ---
Rounds made with Dr. Gould, pt continues with weakness and dizziness. Dr. Gould discussed with patient about elevated troponin and bradycardia. Dr. Gould will consult cardiology for further recommendations and will make medication change. PT and OT will evaluate pt today for further recommendations for discharge.
--- NOTE | 2024-02-15 08:31 | P.HP_ITS ---
HPI H&P: HPI History of Present Illness Chief complaint: fall WEAKNESS Narrative: Patient presented to the emergency room with status post fall. He had a recent discharge in the last 24 to 48 hours from a rehabilitation facility. At the rehabilitation facility he was only able to ambulate about 60 feet. Same thing happened at home with ambulating, just got weak and fell. Denied chest pain, shortness of breath, syncope. Just extreme weakness. Overnight patient with significant bradycardia. When I saw patient up on the medical surgical floor, he is resting comfortably, alert and oriented. Appears to be back to his normal self. Just generalized weakness. Significant bradycardia on exam. Repeated cardiac markers see below. Opioid HPI Opioid Management Most Recent Opioid Data: Last Pain Scale 5 02/14/24 20:30 Last Pain Intensity 3 06/16/23 11:30 Last Pain Assessment 02/15/24 07:51 Last ED Pain Assessment 02/14/24 17:13 Last ORT Total Score 0 02/14/24 19:13 Last ORT Risk Category Low Risk 02/14/24 19:13 Review of Systems ROS Status of ROS 10 or more systems reviewed and unremark able except as noted in history and below [facility] Medical History (Updated 02/14/24 @ 18:28 by ) Inability to walk ?R26.2 - Difficulty in walking, not elsewhere classified (ICD-10) Near syncope ?R55 - Syncope and collapse (ICD-10) Left leg weakness ?R29.898 - Other symptoms and signs involving the musculoskeletal system (ICD-10) Leg pain, left ?M79.605 - Pain in left leg (ICD-10) Frequent falls ?R29.6 - Repeated falls (ICD-10) Bradycardia with 31-40 beats per minute ?R00.1 - Bradycardia, unspecified (ICD-10) Hypokalemia ?E87.6 - Hypokalemia (ICD-10) PVC (premature ventricular contraction) ?I49.3 - Ventricular premature depolarization (ICD-10) Lower extremity edema ?R60.0 - Localized edema (ICD-10) Obesity ?E66.9 - Obesity, unspecified (ICD-10) Hypertension ?I10 - Essential (primary) hypertension (ICD-10) Prostate cancer ?C61 - Malignant neoplasm of prostate (ICD-10) Colon polyps ?K63.5 - Polyp of colon (ICD-10) Heart failure, diastolic ?I50.30 - Unspecified diastolic (congestive) heart failure (ICD-10) Coronary arteriosclerosis ?I25.10 - Atherosclerotic heart disease of [place] coronary artery without angina pectoris (ICD-10) Chronic anticoagulation ?Z79.01 - shelter (current) use of anticoagulants (ICD-10) Cervical disc disease ?M50.90 - Cervical disc disorder, unspecified, unspecified cervical region (ICD-10) Atrial fibrillation ?I48.91 - Unspecified atrial fibrillation (ICD-10) Surgical History Family History (Updated 01/19/24 @ 20:15 by Alina Babin RN) Other Family history not known due to adoption Social History Within the past year, how often did you have a drink containing alcohol: never Score interpretation: A score less than 4 is consistent with normal alcohol consumption. 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 Known occupational exposures/hazards: No Highest level of school completed/degree received: high school graduate Do you want help with school or training: No Are you now , , , , never or living with a partner: In a typical week, how many times do you talk on the telephone with family, friends, or neighbors: 3 or more times per week How often do you get together with friends or relatives: once per week How often do you attend yazidism or jainism services: never Do you belong to any clubs or organizations such as yazidism groups unions, fraternal or athletic groups, or school groups: no Total score: 1 Score interpretation: A score of less than or equal to 1 indicates the most socially isolated. Little interest or pleasure in doing things: not at all Feeling down, depressed, or hopeless: not at all Feel stressed/tense/nervous/anxious/difficulty sleeping: not at all Due to disability, difficulty making decisions: No Do you think of yourself as: straight/heterosexual Gender Identity: male Meds Home Medications and Allergies Home Medications ?Medication ?Instructions ?Recorded ?Confirmed ?Type atorvastatin 80 mg tablet 80 mg PO QPM 04/12/23 02/14/24 History furosemide 40 mg tablet 40 mg PO Q12H 04/12/23 02/14/24 History acetaminophen 500 mg tablet 1,000 mg (2 x 500 mg) PO Q6H PRN 05/02/23 02/14/24 Rx (Tylenol Extra Strength) Pain Scale 1-3 #120 tabs apixaban 5 mg tablet (Eliquis) 5 mg PO Q12H 01/20/24 02/14/24 History carvedilol 6.25 mg tablet 6.25 mg PO BID #60 tabs 01/23/24 02/14/24 Rx potassium chloride 20 mEq 40 meq PO DAILY 02/14/24 02/14/24 History tablet,extended release(part/cryst) Allergies Allergy/AdvReac Type Severity Reaction Status Date / Time No Known Drug Allergies Allergy Verified 02/14/24 19:26 Exam Constitutional Vital Signs, click to edit/add: Last Vital Signs Temp 97.8 F 02/15/24 07:51 Pulse 44 L 02/15/24 07:51 Resp 16 02/15/24 07:51 BP 116/49 02/15/24 07:51 Pulse Ox 98 02/15/24 07:51 O2 Del Method Room Air 02/15/24 07:51 Documenting provider has reviewed patient's vital signs: yes Common normals: apparent distress (Mild painful distress) [facility] Common normals: normocephalic Chest Common normals: inspection of chest normal Respiratory Common normals: normal respiratory effort, no retractions, no use of accessory muscles and clear to auscultation bilaterally Cardio Common normals: regular rate, regular rhythm and no murmurs GI Common normals: Normal to inspection, nondistended, normoactive bowel sounds present Extremity Common normals: abnormal to inspection (1+ edema bilateral lower extremities - some better) Neuro Sensorium/orientation: awake, alert, oriented to person, oriented to place and oriented to time Other: Weakness in left leg compared to right, see physical therapy notes Results Labs Labs: Short CBC 02/14/24 02/15/24 Range/Units 17:07 04:21 WBC 8.5 5.8 (4.0-11.0) 10^3/uL Hgb 11.7 L 10.2 L (14.0-18.0) g/dL Hct 36.4 L 32.1 L (42.0-54.0) % Plt Count 195 172 (150-450) 10^3/uL BMP 02/14/24 02/15/24 17:07 04:21 Sodium 142 143 Potassium 3.5 3.5 Chloride 107 109 H Carbon Dioxide 25.6 25.0 BUN 17.0 18.0 Creatinine 0.92 0.91 Glucose 106 95 Calcium 9.9 9.3 Liver Function 02/14/24 Range/Units 17:07 Total Bilirubin 0.6 (0.2-1.0) mg/dL AST 14 L (15-37) U/L ALT 16 (16-63) U/L Alkaline Phosphatase 99 (46-116) U/L Albumin 3.1 L (3.4-5.0) g/dL Assessment and Plan Assessment and Plan (1) Fall: (2) Weakness: (3) Bradycardia with 31-40 beats per minute: Plan Status post fall-possibly related to bradycardia. Continue to monitor. Change carvedilol to hydralazine. Check an echocardiogram. Elevated high-sensitivity troponin. Trending downward now. Continue to monitor daily. Check an echocardiogram. With bradycardia, possible NSTEMI in the inferior wall region. Check with cardiology. Already anticoagulate with Eliquis will maintain that, as troponin is improving. Status post fall-patient need of more extensive rehabilitation. Iron deficiency anemia-monitor daily Admission status: Patient initially placed in observation but now with elevated troponin and significant bradycardia, medically necessary treatment will span at least [address] patient inpatient status
--- NOTE | 2024-02-15 13:18 | SWNOTE1 ---
SW met with pt to discuss dc needs. Pt voiced he just left [facility] a few days ago. Pt voiced he had a fall at home while home health was at the home. He lives at home by himself. Usually he is independent, but did use his walker some to help him at home now. Pt is agreeable to go to rehab again as it is being recommended. SW reviewed medicare.gov star rating list. Pt voiced [facility] is first choice and [facility] is second. SW reached out to [facility], but they are not able to take pt back as he had a balance from previous stay. SW reached out to [facility], they will review and let SW know.
--- NOTE | 2024-02-15 13:56 | PC.NURSE ---
Ocular Care Aide discussed heart rate of 44 with primary nurse, holly WEINSTEIN, and assembly instructions writer was advised to hold the hydralazine for the 1400 dosage due to low heart rate. ------ Sofiya [facility]
--- NOTE | 2024-02-15 14:12 | CM.NOTE ---
Important Message From Medicare discussed with pt, pt verbalizes understanding and signs paper. Original given to pt and copy placed on pt's chart.
--- NOTE | 2024-02-15 16:28 | SWNOTE1 ---
Pt is approved to go to [facility], approval starts tomorrow. SW notified nursing.
[2024-02-15] MEDS: ATORVASTATIN CALCIUM 40 MG TABLET 80 MG PO (21:05)
[2024-02-15] MEDS: ROPINIROLE HCL 1 MG TABLET PO (21:05)
[2024-02-15] MEDS: ACETAMINOPHEN 325 MG TABLET 650 MG PO (21:05)
[2024-02-16] VITALS (9 sets, daily range): BP systolic 102–109; BP diastolic 59–61; PULSE 38–55; TEMP 36.6–36.7; O2SAT 94–95
[2024-02-16 05:19] LABS: Basophils Absolute Auto 0.1 10^3/uL (0.0-0.1); Basophils Percent Auto 0.9 % (0.2-2.0); Eosinophils Absolute Auto 0.4 10^3/uL (0.0-0.7); Hematocrit 35.7 % (42.0-54.0); Hemoglobin 10.6 g/dL (14.0-18.0); Immature Granulocytes Abs Auto 0.01 10^3/uL (0.00-0.03); Immature Granulocytes Pct Auto 0.2 % (0.0-0.5); Lymphocytes Absolute Auto 1.7 10^3/uL (1.2-3.8); Lymphocytes Percent Auto 28.9 % (20.5-60.0); Mean Corpuscular HGB Conc 29.7 g/dL (29.9-35.2); Mean Corpuscular Volume 101.1 fL (80.0-94.0); Mean Platelet Volume 10.4 fL (9.5-13.5); Monocytes Absolute Auto 0.7 10^3/uL (0.3-0.8); Monocytes Percent Auto 12.3 % (1.7-12.0); Neutrophils Absolute Auto 2.9 10^3/uL (1.4-6.5); Neutrophils Percent Auto 50.7 % (43.0-75.0); Platelet Count 194 10^3/uL (150-450); Red Blood Count 3.53 10^6/uL (4.70-6.10); Red Cell Distribution Width 13.3 % (11.0-15.0); White Blood Count 5.7 10^3/uL (4.0-11.0)
[2024-02-16 05:30] LABS: Anion Gap 13.5; BUN Creatinine Ratio 17.8; Calcium 9.3 mg/dL (8.5-10.1); Carbon Dioxide 22.6 mmol/L (21.0-32.0); Chloride 109 mmol/L (98-107); Estimated GFR (African America >60 (>=60); Estimated GFR (Non-African Ame >60 (>=60); Glucose 92 mg/dL (74-106); Potassium 4.1 mmol/L (3.5-5.1); Sodium 141 mmol/L (136-145)
[2024-02-16 05:51] LABS: Troponin I High Sensitivity 20.8 pg/mL (4.0-76.1)
--- NOTE | 2024-02-16 07:57 | CM.NOTE ---
Rounds made with Dr. Gould, discussed with pt discharge to [facility] for skilled therapy. Dr. Gould discussed low HR with pt and that he would reach out to admission specialist Cardiology for further recommendations. Pt denies any syncope at this time with low HR, just overall weakness.
--- NOTE | 2024-02-16 07:59 | CM.NOTE ---
Pt will also f/u with [facility] Cardiology as outpatient.
--- NOTE | 2024-02-16 08:03 | P.DS_ITS ---
DS: Providers Provider Date of admission: 02/15/24 08:47 Primary care physician: Javier Gould MD Consults: 02/15/24 06:29 Consult to Pharmacy Routine Consulting Provider: Reason for consultation: Please Mckenna me when Med Rec is Updated Has provider been notified: No Occupational Therapy Eval and Treat Routine Reason for consultation: Only if needed for Rehab Has provider been notified: No Physical Therapy Eval and Treat Routine Reason for consultation: Eval and Treat Has provider been notified: No 02/15/24 06:33 Consult to Single Needle Tufting Machine Operator Routine Reason for consult:: Housing/Snf Other reason:: placement 02/15/24 08:27 Consult to Cardiology Routine Reason for consultation: elevated trop rasheed Has provider been notified: No DS: Diagnosis Discharge Diagnosis (1) Fall: (2) Weakness: (3) Bradycardia with 31-40 beats per minute: Plan Status post fall-possibly related to bradycardia. Stable at the time of discharge Elevated high-sensitivity troponin. Trending downward now. Resolved at time of discharge Status post fall-patient need of more extensive rehabilitation. Iron deficiency anemia-improving at the time of discharge Admission status: Patient initially placed in observation but now with elevated troponin and significant bradycardia, medically necessary treatment will span at least [address] patient inpatient status ? DS: Summary Hospital Course Hospital Course: Patient was discharged from a rehabilitation facility for just over 24 hours, had a fall at home. Presented to the emergency room. After discussion he does have some shortness of breath with check echocardiogram which was really unremarkable and high-sensitivity troponins which were significantly elevated on his second set. They are trending down by the fourth set they have returned to normal. Patient also with significant bradycardia concerning for inferior wall ischemia. EKG does not confirm. Echocardiogram does not confirm. Patient feels back to his baseline. Still some shortness of breath but no chest pain. He is generally weak in his lower extremities secondary to his lumbar disc disease. At this point we will go and refer him back to rehab. He is an excellent rehabilitation candidate as he is highly motivated for returning to home. He needs to follow-up with pain management for continued treatment for his lumbar disc disease and follow-up with cardiology for his significant bradycardia off of beta-blockers currently. Tolerating hydralazine for blood pressure control. Will place Holter monitor at the time of discharge. Medically stable for discharge. Medication status. Follow-up with me once he is released from rehab Follow-up appointments necessary would be with pain management and cardiology Time Spent with Patient Time attestation: Total time spent providing and/or coordinating discharge services: Exam Constitutional Vital Signs, click to edit/add: Last Vital Signs Temp 98.1 F 02/16/24 07:41 Pulse 41 L 02/16/24 07:41 Resp 20 02/16/24 07:41 BP 109/61 02/16/24 07:41 Pulse Ox 95 02/16/24 07:41 O2 Del Method Room Air 02/16/24 07:41 Documenting provider has reviewed patient's vital signs: yes Common normals: apparent distress (Mild painful distress) [facility] Common normals: normocephalic Chest Common normals: inspection of chest normal Respiratory Common normals: normal respiratory effort, no retractions, no use of accessory muscles and clear to auscultation bilaterally Cardio Common normals: regular rate, regular rhythm and no murmurs GI Common normals: Normal to inspection, nondistended, normoactive bowel sounds present Extremity Common normals: abnormal to inspection (1+ edema bilateral lower extremities - some better) Neuro Sensorium/orientation: awake, alert, oriented to person, oriented to place and oriented to time Other: significant Weakness in left leg compared to right, see physical therapy notes - stable at dc DS: Data Data Completed and Pending Labs on day of discharge: Labs from last 24 hours 02/16/24 04:07 WBC 5.7 RBC 3.53 L Hgb 10.6 L Hct 35.7 L MCV 101.1 H MCH 30.0 MCHC 29.7 L RDW 13.3 Plt Count 194 MPV 10.4 Neut % (Auto) 50.7 Lymph % (Auto) 28.9 Mathews % (Auto) 12.3 H Eos % (Auto) 7.0 Baso % (Auto) 0.9 Neut # (Auto) 2.9 Lymph # (Auto) 1.7 Mathews # (Auto) 0.7 Eos # (Auto) 0.4 Baso # (Auto) 0.1 Abs Immat Gran (auto) 0.01 Imm/Tot Granulo (auto) 0.2 Sodium 141 Potassium 4.1 Chloride 109 H Carbon Dioxide 22.6 Anion Gap 13.5 BUN 16.0 Creatinine 0.90 Est GFR ( Amer) >60 Est GFR (Non-Af Amer) >60 BUN/Creatinine Ratio 17.8 Glucose 92 Calcium 9.3 Troponin I High Sens 20.8 NT-Pro-B Natriuret Pep 1511.0 Discharge Plan Discharge Disposition: Xfer SNF Condition: Fair Discharge Medications: New ropinirole 1 mg Tablet 1 mg PO QHS Qty: 30 11RF hydralazine 50 mg Tablet 50 mg PO BID Qty: 60 11RF Continued furosemide 40 mg tablet 40 mg PO Q12H atorvastatin 80 mg tablet 80 mg PO QPM acetaminophen [Tylenol Extra Strength] 500 mg Tablet 1,000 mg PO Q6H PRN (Reason: Pain Scale 1-3) Qty: 120 0RF Eliquis 5 mg tablet 5 mg PO Q12H potassium chloride 20 mEq tablet,ER particles/crystals 40 meq PO DAILY Discontinued carvedilol 6.25 mg Tablet 6.25 mg PO BID Qty: 60 11RF Print Language: Mongolian Dock Loader/Utility System Repairer Instructions: Discharge to [facility] skilled Forms: Portal Instructions Follow Up Appointments: February 18 @ 10am with [place] [facility] at [facility] [phone]
[2024-02-16] MEDS: APIXABAN 5 MG TABLET PO (08:59)
[2024-02-16] MEDS: FUROSEMIDE 40 MG TABLET PO (08:59)
[2024-02-16] MEDS: POTASSIUM CHLORIDE 10 MEQ ER TABLET 40 MEQ PO (08:59)
--- NOTE | 2024-02-16 09:58 | SWNOTE1 ---
Pt is medically stable and approved for discharge today to [facility]. KAMINI set up trips for 11:00. KAMINI notified nursing and [facility]. KAMINI sent over dc med rec and dc summary. KAMINI completed HENS.
--- NOTE | 2024-02-16 10:45 | PC.NURSE ---
Report called to Julianne at [facility]. Informed pt also coming with holter monitor for 7-14 days
== END 2024-02-16 11:15 | DRG 309 ==
LOC: ER 18:28 → MS 19:11
PROVIDERS: Registered Nurse; Admitting Provider Family Medicine; Emergency Provider Emergency Medicine; PCP Family Medicine; Visit Provider Family Medicine
DX: R00.1 Bradycardia, unspecified (principal); I50.30 Unspecified diastolic (congestive) heart failure; R53.1 Weakness; R79.89 Other specified abnormal findings of blood chemistry; D50.9 Iron deficiency anemia, unspecified; M51.9 Unspecified thoracic, thoracolumbar and lumbosacral intervertebral disc disorder; I11.0 Hypertensive heart disease with heart failure; I25.10 Atherosclerotic heart disease of native coronary artery without angina pectoris; I48.91 Unspecified atrial fibrillation; Z91.81 History of falling; Z79.01 Long term (current) use of anticoagulants; Z79.899 Other long term (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 therapy; E66.9 Obesity, unspecified; Z85.46 Personal history of malignant neoplasm of prostate; Z86.010 Personal history of colon polyps; Z68.32 Body mass index [BMI] 32.0-32.9, adult
CPT/HCPCS: 36415; 71045; 72125; 73502; 73562; 80048; 80053; 81001; 83880; 84484; 85025; 85027; 87086; 93005; 93246; 93306; 94667; 94668; 94761; 97161; 97165; 99285; G0378

== ENCOUNTER 2024-03-04 01:48 | Outpatient (REF) | payer MEDICARE, SELFPAY ==
--- OUTSIDE RECORDS SUMMARY | 2024-03-04 01:51 | XMS_ITS | CCD ---
Author Organization [facility] Care Team Providers Care [facility] [place] [place] Experience Strategy Name Role Phone PEBBLES WOODARD Primary Care [...] Attending Unavailable Neo Gould Primary Care Physician [phone] Zhang DENISE Attending Unavailable Hoy Neo Referring Unavailable NILLZhang Attending Unavailable Neo Gould Referring Unavailable Ghislaine Morales Attending Unavailable NILZhang Alvarez Attending Unavailable Neo Gould Referring Unavailable NILLZhang Attending Unavailable NILLZhang Attending Unavailable ANATOLIY NOVAK Attending Unavailable MOUKAJONATHAN RUSSELL Attending Unavailable ELTAROBERT FERNANDEZAB Attending Unavailable ELTASHILOH FERNANDEZ Attending Unavailable Allergies Allergy Classification Reported Allergen(s) Allergy Type Date of Onset Reaction(s) Facility (1 source) No Known Medication Allergies; 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: [No Known Medication Allergies] Propensity to adverse reactions (disorder) [facility] Repository Medications Current Medications Medication [...] Coronary arteriosclerosis; 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: [Atherosclerotic heart disease of [place] coronary artery without angina pectoris] Onset: 12-13-2023 [...] 12-10-2022 Chronic Other aftercare (1 source) Other senior living (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 therapy; 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: [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] Onset: 12-14-2022 Episodic Other aftercare (2 sources) Long-term current use of anticoagulant; 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] Onset: 03-28-2023 Episodic [...] Value Interpretation Reference Range Facility Office Visiton 02-19-2024 Follow-up visit [id number] Oscar Cox 1945 [facility] Provider Department Center 02/19/2024 SHILOH SANTACRUZ Family History Family history unknown: Yes Level of Service:86563 [place] OFFICE/OUTPATIENT ESTABLISHED LOW MDM 20 MIN Normal [facility] Office Visiton 12-13-2023 Follow-up visit [id number] Oscar Cox 1945 [facility] Provider Department Center 12/13/2023 SHILOH SANTACRUZ Family History Family history unknown: Yes Level of Service:65691 [place] OFFICE/OUTPATIENT ESTABLISHED MOD MDM 30 MIN Normal [facility] Office Visiton 11-27-2023 Follow-up visit [id number] Oscar Cox 1945 [facility] Provider Department Center 11/27/2023 JONATHAN GALAVIZ Family History Family history unknown: Yes Level of Service:15579 [place] OFFICE/OUTPATIENT ESTABLISHED MOD MDM 30 MIN Normal [facility] Fpc Recordson 07-04 Fpc Records [id number] CD:127 Normal [facility] 37on 06-01-2023 37 -Reduce Lisinopril t o 10 mg once a day -Will get an ultrasound of your heart -Continue Lasix 40 mg twice a day -Follow-up with Dr. Ortiz to discuss watchman -Start Eliquis 2.5 mg twice a day and monitor for more bleeding Normal [facility] Office Visiton 06-01-2023 Follow-up visit [id number] Oscar Cox 1945 [facility] Provider Department Center 06/01/2023 [id number] PIERRE Hos Family History Family history unknown: Yes Level of Service:06945 [place] OFFICE/OUTPATIENT ESTABLISHED MOD MDM 30-39 MIN Reason for Visit and Comments: Follow-up [740542] - Concerns due to increased swelling bilateral legs and also having blood in urine - Eliquis is being held at the moment Normal [facility] Orders Onlyon 06-01-2023 Orders Only [id number] Oscar Cox 1945 [facility] Provider Department [place] 06/01/2023 ELVIN CADENA ABILIO [facility] Family History Family history unknown: Yes Normal [facility] Reminderson 05-10-2023 Reminders - From: Pennie Bose LPN To: GSN - Clinical; Sent: 05/10/2023 10:13:27 EDT Show up: 03/27/2028 07:00:00 EDT Subject: colonoscopy recall Due Date/Time: 04/26/2028 07:00:00 EDT Reminder/Recall Patient due for surveillance colonoscopy 04/26/2028. Normal [facility] Pathology Noteon 05-03-2023 Pathology Note [id number] 0CD:127 Normal [facility] Outside Colonoscopyon 2022 Outside Colonoscopy [id number] 0CD:127 [facility] Pre-Certification Formon Pre-Certification Form [id number] 00CD:127 Normal [facility] Consent for Procedure/Surger yon 03-29-2023 Consent for Procedure/Surgery [id number] 0CD:127 Normal [facility] Ambulatory Visit Summaryon 0 03-28-2023 Ambulatory Visit [...] history of colonic polyps Premature beats Normal [facility] Physician Referralon 023 Physician Referral [id number] 0CD:127 Normal [facility] CBC AUTO DIFFon 03-01-2023 BASO # 0.0 103/ul Normal 0.0-0.1 [facility] Comment on above: Performed By: #### D ATCBC #### [facility] [address] [place] [address] Dr. Power Covarrubias Basophils/100 WBC (Bld) 0.7 % Normal 0.2-2.0 [facility] Comment on above: Performed By: #### D ATCBC #### [facility] [address] [address] [address] Power Covarrubias EO # 0.1 103/ul Normal 0.0-0.7 [facility] Comment on above: Performed By: #### D ATCBC #### [facility] [address] [address] [address] Power Covarrubias Eosinophils/100 WBC (Bld) 1.8 % Normal 0.9-7.0 [facility] Comment on above: Performed By: #### D ATCBC #### [facility] [address] [address] [address] Power Covarrubias Erythrocyte distribution width (RBC) [Ratio] 13.3 % Normal 11.0-15.0 [facility] Comment on above: Performed By: #### D ATCBC #### [facility] [address] [address] [address] Power Covarrubias Hematocrit (Bld) [Volume fraction] 40.7 % Critically low 42.0-54.0 [facility] Comment on above: Performed By: #### D ATCBC #### [facility] [address] [address] [address] Power Covarrubias Hemoglobin (Bld) [Mass/Vol] 12.9 g/dL Critically low 14.0-18.0 [facility] Comment on above: Performed By: #### D ATCBC #### [facility] [address] [address] [address] Power Covarrubias IG # 0.01 10e3/ul Normal 0.00-0.03 [facility] Comment on above: Performed By: #### D ATCBC #### [facility] [address] [address] [address] Power Covarrubias IG % 0.2 % Normal 0.0-0.5 [facility] Comment on above: Performed By: #### D ATCBC #### [facility] [address] [address] [address] Power Covarrubias LYMPH # 0.7 103/ul Critically low 1.2-3.8 [facility] Comment on above: Performed By: #### D ATCBC #### [facility] [address] [address] [address] Power Covarrubias Lymphocytes/100 WBC (Bld) 16.3 % Critically low 20.5-60.0 [facility] Comment on above: Performed By: #### D ATCBC #### [facility] [address] [address] [address] Power Covarrubias MCH (RBC) [Entitic mass] 29.6 pg Normal 25.9-34.0 [facility] Comment on above: Performed By: #### D ATCBC #### [facility] [address] [address] [address] Power Covarrubias MCHC (RBC) [Mass/Vol] 31.7 g/dL Normal 29.9-35.2 [facility] Comment on above: Performed By: #### D ATCBC #### [facility] [address] [address] [address] Power Covarrubias MCV (RBC) [Entitic vol] 93.3 fL Normal 80.0-94.0 [facility] Comment on above: Performed By: #### D ATCBC #### [facility] [address] [address] [address] Power Covarrubias MONO # 0.3 103/ul Normal 0.3-0.8 [facility] Comment on above: Performed By: #### D ATCBC #### [facility] [address] [address] [address] Power Covarrubias Monocytes/100 WBC (Bld) 7.5 % Normal 1.7-12.0 [facility] Comment on above: Performed By: #### D ATCBC #### [facility] [address] [address] [address] Power Covarrubias NEUT # 3.4 103/ul Normal 1.4-6.5 [facility] Comment on above: Performed By: #### D ATCBC #### [facility] [address] [place] [address] Dr. Power Covarrubias Neutrophils/100 WBC (Bld) 73.5 % Normal 43.0-75.0 [facility] Comment on above: Performed By: #### D ATCBC #### [facility] [address] [address] [address] Power Covarrubias Platelet mean volume (Bld) [Entitic vol] 9.9 fL Normal 9.5-13.5 [facility] Comment on above: Performed By: #### D ATCBC #### [facility] [address] [address] [address] Power Covarrubias PLT 198 103/ul Normal 150-450 [facility] Comment on above: Performed By: #### D ATCBC #### [facility] [address] [address] [address] Power Covarrubias RBC 4.36 106/ul Critically low 4.70-6.[address] [facility] Comment on above: Performed By: #### D ATCBC #### [facility] [address] [address] [address] Power Covarrubias WBC 4.6 103/ul Normal 4.0-11.0 [facility] Comment on above: Performed By: #### D ATCBC #### [facility] [address] [address] [address] Power Covarrubias BRE - LIPID PROFILEon 2022 CHOL-HDL RATIO NORM SEE BELOW Normal [facility] Comment on above: Result Comment: 3.3 - 4.4 LOW RISK 4.4 - 7.1 AVERAGE RISK 7.1 - 11.0 MODERATE RISK >11.0 HIGH RISK Performed By: #### D ATLIPI, DATPSA, DATBMP #### [facility] [address] [place] [address] Dr. Power Covarrubias Cholesterol.total/Ch olesterol in HDL [Mass ratio] 2.2 {ratio} Normal [facility] Comment on above: Performed By: #### D ATLIPI, DATPSA, DATBMP #### [facility] [address] [place] [address] Dr. Power Covarrubias BRE- BMP WITH LIPIDon 2022 Anion gap [Moles/Vol] 12.8 mmol/L Normal [facility] Comment on above: Performed By: #### D ATLIPI, DATPSA, DATBMP #### [facility] [address] [address] [address] Power Covarrubias Calcium [Mass/Vol] 9.3 mg/dL Normal 8.5-10.1 [facility] Comment on above: Performed By: #### D ATLIPI, DATPSA, DATBMP #### [facility] [address] [address] [address] Power Covarrubias Chloride [Moles/Vol] 107 mmol/L Normal 98-107 [facility] Comment on above: Performed By: #### D ATLIPI, DATPSA, DATBMP #### [facility] [address] [address] [address] Power Covarrubias Cholesterol [Mass/Vol] 123 mg/dL Normal <=200 [facility] Comment on above: Performed By: #### D ATLIPI, DATPSA, DATBMP #### [facility] [address] [place] [address] Dr. Power Covarrubias Cholesterol in HDL [Mass/Vol] 56 mg/dL Normal 40-60 [facility] Comment on above: Performed By: #### D ATLIPI, DATPSA, DATBMP #### [facility] [address] [address] [address] Power Covarrubias Cholesterol in LDL [Mass/Vol] 52.0 mg/dL Normal [facility] Comment on above: Performed By: #### D ATLIPI, DATPSA, DATBMP #### [facility] [address] [address] [address] Power Covarrubias CO2 [Moles/Vol] 28.7 mmol/L Normal 21.0-32.0 [facility] Comment on above: Performed By: #### D ATLIPI, DATPSA, DATBMP #### [facility] [address] [place] [address] Dr. Power Covarrubias Creatinine [Mass/Vol] 0.93 mg/dL Normal 0.70-1.30 [facility] Comment on above: Performed By: #### D ATLIPI, DATPSA, DATBMP #### [facility] [address] [address] [address] Power Covarrubias EGFR-AF AUSTRALIAN >60 Normal >=60 [facility] Comment on above: Performed By: #### D ATLIPI, DATPSA, DATBMP #### [facility] [address] [place] [address] Dr. Power Covarrubias EGFR-NON AF AUSTRALIAN >60 Normal >=60 [facility] Comment on above: Performed By: #### D ATLIPI, DATPSA, DATBMP #### [facility] [address] [address] [address] Power Covarrubias Glucose [Mass/Vol] 97 mg/dL Normal 74-106 [facility] Comment on above: Performed By: #### D ATLIPI, DATPSA, DATBMP #### [facility] [address] [address] [address] Power Covarrubias HDL NORMAL > or = 60 mg/dl - LO W CARDIOVASCULAR RISK <40 mg/dl - HIGH CARDIOVASCULAR RISK Normal [facility] Comment on above: Performed By: #### D ATLIPI, DATPSA, DATBMP #### [facility] [address] [place] [address] Dr. Power Covarrubias LDL CALC NORMAL SEE BELOW Normal [facility] Comment on above: Result Comment: <100 mg/dl OPTIMAL 100 - 129 mg/dl NEAR OR ABOVE OPTIMAL 130 - 159 mg/dl BORDERLINE HIGH 160 - 189 mg/dl HIGH >190 mg/dl VERY HIGH Performed By: #### D ATLIPI, DATPSA, DATBMP #### [facility] [address] [place] [address] Dr. Power Covarrubias Potassium [Moles/Vol] 3.5 mmol/L Normal 3.5-5.1 [facility] Comment on above: Performed By: #### D ATLIPI, DATPSA, DATBMP #### [facility] [address] [place] [address] Dr. Power Covarrubias Sodium [Moles/Vol] 145 mmol/L Normal 136-145 [facility] Comment on above: Performed By: #### D ATLIPI, DATPSA, DATBMP #### [facility] [address] [place] [address] Dr. Power Covarrubias Triglyceride [Mass/Vol] 75 mg/dL Normal <=150 [facility] Comment on above: Performed By: #### D ATLIPI, DATPSA, DATBMP #### [facility] [address] [place] [address] Dr. Powre Covarrubias Urea nitrogen [Mass/Vol] 11.0 mg/dL Normal 7.0-18.0 [facility] Comment on above: Performed By: #### D ATLIPI, DATPSA, DATBMP #### [facility] [address] [place] [address] Dr. Power Covarrubias Urea nitrogen/Creatinine [Mass ratio] 11.8 mg/mg Normal [facility] Comment on above: Performed By: #### D ATLIPI, DATPSA, DATBMP #### [facility] [address] [place] [address] Dr. Power Covarrubias VLDL CALC 15.0 mg/dL Normal [facility] Comment on above: Performed By: #### D ATLIPI, DATPSA, DATBMP #### [facility] [address] [place] [address] Dr. Power Covarrubias GLYCOHEMOGLOBIN A1Con 2022 ADA RECOMMENDATION SEE BELOW Normal [facility] Comment on above: Result Comment: ADA RECOMMENDED LIMIT 4.0 - 6.0 ADA THERAPEUTIC TARGET < 7.0 ACTION SUGGESTED > 7.0 Performed By: #### D ATLIPI, DATPSA, DATBMP #### [facility] [address] [place] [address] Dr. Power Covarrubias Glucose [Mass/Vol] 105 mg/dL Normal [facility] Comment on above: Performed By: #### D ATLIPI, DATPSA, DATBMP #### [facility] [address] [place] [address] Dr. Power Covarrubias HbA1c (Bld) [Mass fraction] 5.3 % Normal 4.5-6.2 [facility] Comment on above: Performed By: #### D ATLIPI, DATPSA, DATBMP #### [facility] [address] [place] [address] Dr. Power Covarrubias CBC AUTO DIFFon 12-10-2022 BASO # 0.0 103/ul Normal 0.0-0.1 [facility] Comment on above: Performed By: #### D ATLIPI, DATPSA, DATBMP #### [facility] [address] [place] [address] Dr. Power Covarrubias Basophils/100 WBC (Bld) 0.4 % Normal 0.2-2.0 [facility] Comment on above: Performed By: #### D ATLIPI, DATPSA, DATBMP #### [facility] [address] [place] [address] Dr. Power Covarrubias EO # 0.2 103/ul Normal 0.0-0.7 [facility] Comment on above: Performed By: #### D ATLIPI, DATPSA, DATBMP #### [facility] [address] [address] [address] Power Covarrubias Eosinophils/100 WBC (Bld) 3.6 % Normal 0.9-7.0 [facility] Comment on above: Performed By: #### D ATLIPI, DATPSA, DATBMP #### [facility] [address] [place] [address] Dr. Power Covarrubias Erythrocyte distribution width (RBC) [Ratio] 13.5 % Normal 11.0-15.0 [facility] Comment on above: Performed By: #### D ATLIPI, DATPSA, DATBMP #### [facility] [address] [place] [address] Dr. Power Covarrubias Hematocrit (Bld) [Volume fraction] 37.5 % Critically low 42.0-54.0 [facility] Comment on above: Performed By: #### D ATLIPI, DATPSA, DATBMP #### [facility] [address] [place] [address] Dr. Power Covarrubias Hemoglobin (Bld) [Mass/Vol] 12.0 g/dL Critically low 14.0-18.0 [facility] Comment on above: Performed By: #### D ATLIPI, DATPSA, DATBMP #### [facility] [address] [place] [address] Dr. Power Covarrubias IG # 0.02 10e3/ul Normal 0.00-0.03 [facility] Comment on above: Performed By: #### D ATLIPI, DATPSA, DATBMP #### [facility] [address] [place] [address] Dr. Power Covarrubias IG % 0.4 % Normal 0.0-0.5 [facility] Comment on above: Performed By: #### D ATLIPI, DATPSA, DATBMP #### [facility] [address] [place] [address] Dr. Power Covarrubias LYMPH # 0.9 103/ul Critically low 1.2-3.8 [facility] Comment on above: Performed By: #### D ATLIPI, DATPSA, DATBMP #### [facility] [address] [place] [address] Dr. Power Covarrubias Lymphocytes/100 WBC (Bld) 17.7 % Critically low 20.5-60.0 [facility] Comment on above: Performed By: #### D ATLIPI, DATPSA, DATBMP #### [facility] [address] [place] [address] Dr. Power Covarrubias MANUAL DIFF REQ NO Normal [facility] Comment on above: Performed By: #### D ATLIPI, DATPSA, DATBMP #### [facility] [address] [place] [address] Dr. Power Covarrubias MCH (RBC) [Entitic mass] 29.7 pg Normal 25.9-34.0 [facility] Comment on above: Performed By: #### D ATLIPI, DATPSA, DATBMP #### [facility] [address] [place] [address] Dr. Power Covarrubias MCHC (RBC) [Mass/Vol] 32.0 g/dL Normal 29.9-35.2 [facility] Comment on above: Performed By: #### D ATLIPI, DATPSA, DATBMP #### [facility] [address] [place] [address] Dr. Power Covarrubias MCV (RBC) [Entitic vol] 92.8 fL Normal 80.0-94.0 [facility] Comment on above: Performed By: #### D ATLIPI, DATPSA, DATBMP #### [facility] [address] [place] [address] Dr. Power Covarrubias MONO # 0.6 103/ul Normal 0.3-0.8 [facility] Comment on above: Performed By: #### D ATLIPI, DATPSA, DATBMP #### [facility] [address] [place] [address] Dr. Power Covarrubias Monocytes/100 WBC (Bld) 11.1 % Normal 1.7-12.0 [facility] Comment on above: Performed By: #### D ATLIPI, DATPSA, DATBMP #### [facility] [address] [address] [address] Power Covarrubias NEUT # 3.6 103/ul Normal 1.4-6.5 [facility] Comment on above: Performed By: #### D ATLIPI, DATPSA, DATBMP #### [facility] [address] [place] [address] Dr. Power Covarrubias Neutrophils/100 WBC (Bld) 66.8 % Normal 43.0-75.0 [facility] Comment on above: Performed By: #### D ATLIPI, DATPSA, DATBMP #### [facility] [address] [place] [address] Dr. Power Covarrubias Platelet mean volume (Bld) [Entitic vol] 9.8 fL Normal 9.5-13.5 [facility] Comment on above: Performed By: #### D ATLIPI, DATPSA, DATBMP #### [facility] [address] [place] [address] Dr. Power Covarrubias PLT 199 103/ul Normal 150-450 [facility] Comment on above: Performed By: #### D ATLIPI, DATPSA, DATBMP #### [facility] [address] [place] [address] Dr. Power Covarrubias RBC 4.04 106/ul Critically low 4.70-6.10 [facility] Comment on above: Performed By: #### D ATLIPI, DATPSA, DATBMP #### [facility] [address] [place] [address] Dr. Power Covarrubias WBC 5.3 103/ul Normal 4.0-11.0 [facility] Comment on above: Performed By: #### D ATLIPI, DATPSA, DATBMP #### [facility] [address] [place] [address] Dr. Power Covarrubias PROF 14(COMP METB)on 023 Albumin [Mass/Vol] 3.3 g/dL Critically low 3.4-5.0 [facility] Comment on above: Performed By: #### C MP #### [facility] [address] [place] [address] Dr. Power Covarrubias Albumin/Globulin [Mass ratio] 0.9 {ratio} Normal [facility] Comment on above: Performed By: #### C MP #### [facility] [address] [place] [address] Dr. Power Covarrubias ALP [Catalytic activity/Vol] 99 U/L Normal 46-116 [facility] Comment on above: Performed By: #### C MP #### [facility] [address] [place] [address] Dr. Power Covarrubias ALT [Catalytic activity/Vol] 17 U/L Normal 16-63 [facility] Comment on above: Performed By: #### C MP #### [facility] [address] [place] [address] Dr. Power Covarrubias Anion gap [Moles/Vol] 11.6 mmol/L Normal [facility] Comment on above: Performed By: #### C MP #### [facility] [address] [place] [address] Dr. Power Covarrubias AST [Catalytic activity/Vol] 15 U/L Normal 15-37 [facility] Comment on above: Performed By: #### C MP #### [facility] [address] [place] [address] Dr. Power Covarrubias Bilirubin [Mass/Vol] 0.6 mg/dL Normal 0.2-1.0 [facility] Comment on above: Performed By: #### C MP #### [facility] [address] [place] [address] Dr. Power Covarrubias Calcium [Mass/Vol] 9.4 mg/dL Normal 8.5-10.1 [facility] Comment on above: Performed By: #### C MP #### [facility] [address] [place] [address] Dr. Power Covarrubias Chloride [Moles/Vol] 107 mmol/L Normal 98-107 [facility] Comment on above: Performed By: #### C MP #### [facility] [address] [place] [address] Dr. Power Covarrubias CO2 [Moles/Vol] 29.2 mmol/L Normal 21.0-32.0 [facility] Comment on above: Performed By: #### C MP #### [facility] [address] [address] [address] Power Covarrubias Creatinine [Mass/Vol] 0.87 mg/dL Normal 0.70-1.30 [facility] Comment on above: Performed By: #### C MP #### [facility] [address] [address] [address] Power Covarrubias EGFR-AF AUSTRALIAN >60 Normal >=60 [facility] Comment on above: Performed By: #### C MP #### [facility] [address] [address] [address] Power Covarrubias EGFR-NON AF AUSTRALIAN >60 Normal >=60 [facility] Comment on above: Performed By: #### C MP #### [facility] [address] [place] [address] Dr. Power Covarrubias Globulin (S) [Mass/Vol] 3.6 g/dL Normal [facility] Comment on above: Performed By: #### C MP #### [facility] [address] [place] [address] Dr. Power Covarrubias Glucose [Mass/Vol] 107 mg/dL Critically high 74-106 [facility] Comment on above: Performed By: #### C MP #### [facility] [address] [place] [address] Dr. Power Covarrubias Potassium [Moles/Vol] 3.8 mmol/L Normal 3.5-5.1 [facility] Comment on above: Performed By: #### C MP #### [facility] [address] [address] [address] Power Covarrubias Protein [Mass/Vol] 6.9 g/dL Normal 6.4-8.2 [facility] Comment on above: Performed By: #### C MP #### [facility] [address] [address] [address] Power Covarrubias Sodium [Moles/Vol] 144 mmol/L Normal 136-145 [facility] Comment on above: Performed By: #### C MP #### [facility] [address] [place] [address] Dr. Power Covarrubias Urea nitrogen [Mass/Vol] 12.0 mg/dL Normal 7.0-18.0 [facility] Comment on above: Performed By: #### C MP #### [facility] [address] [place] [address] Dr. Power Covarrubias Urea nitrogen/Creatinine [Mass ratio] 13.8 mg/mg Normal [facility] Comment on above: Performed By: #### C MP #### [facility] [address] [place] [address] Dr. Power Covarrubias CBC AUTO DIFFon 08-31-2022 BASO # 0.0 103/ul Normal 0.0-0.1 [facility] Comment on above: Performed By: #### D ATLIPI, DATPSA, DATBMP #### [facility] [address] [place] [address] Dr. Power Covarrubias Basophils/100 WBC (Bld) 0.7 % Normal 0.2-2.0 [facility] Comment on above: Performed By: #### D ATLIPI, DATPSA, DATBMP #### [facility] [address] [place] [address] Dr. Power Covarrubias EO # 0.2 103/ul Normal 0.0-0.7 [facility] Comment on above: Performed By: #### D ATLIPI, DATPSA, DATBMP #### [facility] [address] [place] [address] Dr. Power Covarrubias Eosinophils/100 WBC (Bld) 3.5 % Normal 0.9-7.0 [facility] Comment on above: Performed By: #### D ATLIPI, DATPSA, DATBMP #### [facility] [address] [place] [address] Dr. Power Covarrubias Erythrocyte distribution width (RBC) [Ratio] 13.2 % Normal 11.0-15.0 [facility] Comment on above: Performed By: #### D ATLIPI, DATPSA, DATBMP #### [facility] [address] [place] [address] Dr. Power Covarrubias Hematocrit (Bld) [Volume fraction] 39.3 % Critically low 42.0-54.0 [facility] Comment on above: Performed By: #### D ATLIPI, DATPSA, DATBMP #### [facility] [address] [place] [address] Dr. Power Covarrubias Hemoglobin (Bld) [Mass/Vol] 12.9 g/dL Critically low 14.0-18.0 [facility] Comment on above: Performed By: #### D ATLIPI, DATPSA, DATBMP #### [facility] [address] [place] [address] Dr. Power Covarrubias IG # 0.02 10e3/ul Normal 0.00-0.03 [facility] Comment on above: Performed By: #### D ATLIPI, DATPSA, DATBMP #### [facility] [address] [place] [address] Dr. Power Covarrubias IG % 0.4 % Normal 0.0-0.5 [facility] Comment on above: Performed By: #### D ATLIPI, DATPSA, DATBMP #### [facility] [address] [place] [address] Dr. Power Covarrubias LYMPH # 0.9 103/ul Critically low 1.2-3.8 [facility] Comment on above: Performed By: #### D ATLIPI, DATPSA, DATBMP #### [facility] [address] [place] [address] Dr. Power Covarrubias Lymphocytes/100 WBC (Bld) 16.4 % Critically low 20.5-60.0 [facility] Comment on above: Performed By: #### D ATLIPI, DATPSA, DATBMP #### [facility] [address] [place] [address] Dr. Power Covarrubias MCH (RBC) [Entitic mass] 30.7 pg Normal 25.9-34.0 [facility] Comment on above: Performed By: #### D ATLIPI, DATPSA, DATBMP #### [facility] [address] [place] [address] Dr. Power Covarrubias MCHC (RBC) [Mass/Vol] 32.8 g/dL Normal 29.9-35.2 [facility] Comment on above: Performed By: #### D ATLIPI, DATPSA, DATBMP #### [facility] [address] [place] [address] Dr. Power Covarrubias MCV (RBC) [Entitic vol] 93.6 fL Normal 80.0-94.0 [facility] Comment on above: Performed By: #### D ATLIPI, DATPSA, DATBMP #### [facility] [address] [place] [address] Dr. Power Covarrubias MONO # 0.5 103/ul Normal 0.3-0.8 [facility] Comment on above: Performed By: #### D ATLIPI, DATPSA, DATBMP #### [facility] [address] [place] [address] Dr. Power Covarrubias Monocytes/100 WBC (Bld) 9.0 % Normal 1.7-12.0 [facility] Comment on above: Performed By: #### D ATLIPI, DATPSA, DATBMP #### [facility] [address] [place] [address] Dr. Power Covarrubias NEUT # 3.8 103/ul Normal 1.4-6.5 [facility] Comment on above: Performed By: #### D ATLIPI, DATPSA, DATBMP #### [facility] [address] [place] [address] Dr. Power Covarrubias Neutrophils/100 WBC (Bld) 70.0 % Normal 43.0-75.0 [facility] Comment on above: Performed By: #### D ATLIPI, DATPSA, DATBMP #### [facility] [address] [place] [address] Dr. Power Covarrubias Platelet mean volume (Bld) [Entitic vol] 9.9 fL Normal 9.5-13.5 [facility] Comment on above: Performed By: #### D ATLIPI, DATPSA, DATBMP #### [facility] [address] [address] [address] Power Covarrubias PLT 195 103/ul Normal 150-450 [facility] Comment on above: Performed By: #### D ATLIPI, DATPSA, DATBMP #### [facility] [address] [address] [address] Power Covarrubias RBC 4.20 106/ul Critically low 4.70-6.10 [facility] Comment on above: Performed By: #### D ATLIPI, DATPSA, DATBMP #### [facility] [address] [address] [address] Power Covarrubias WBC 5.4 103/ul Normal 4.0-11.0 [facility] Comment on above: Performed By: #### D ATLIPI, DATPSA, DATBMP #### [facility] [address] [place] [address] Dr. Power Covarrubias BRE- BMP WITH LIPIDon 2021 Anion gap [Moles/Vol] 10.8 mmol/L Normal [facility] Comment on above: Performed By: #### D ATLIPI, DATPSA, DATBMP #### [facility] [address] [place] [address] Dr. Power Covarrubias Calcium [Mass/Vol] 9.3 mg/dL Normal 8.5-10.1 [facility] Comment on above: Performed By: #### D ATLIPI, DATPSA, DATBMP #### [facility] [address] [address] [address] Power Covarrubias Chloride [Moles/Vol] 105 mmol/L Normal 98-107 [facility] Comment on above: Performed By: #### D ATLIPI, DATPSA, DATBMP #### [facility] [address] [address] [address] Power Covarrubias Cholesterol [Mass/Vol] 123 mg/dL Normal <=200 [facility] Comment on above: Performed By: #### D ATLIPI, DATPSA, DATBMP #### [facility] [address] [address] [address] Power Covarrubias Cholesterol in HDL [Mass/Vol] 51 mg/dL Normal 40-60 [facility] Comment on above: Performed By: #### D ATLIPI, DATPSA, DATBMP #### [facility] [address] [address] [address] Power Covarrubias Cholesterol in LDL [Mass/Vol] 56.0 mg/dL Normal [facility] Comment on above: Performed By: #### D ATLIPI, DATPSA, DATBMP #### [facility] [address] [place] [address] Dr. Power Covarrubias CO2 [Moles/Vol] 28.2 mmol/L Normal 21.0-32.0 [facility] Comment on above: Performed By: #### D ATLIPI, DATPSA, DATBMP #### [facility] [address] [place] [address] Dr. Power Covarrubias Creatinine [Mass/Vol] 0.86 mg/dL Normal 0.70-1.30 [facility] Comment on above: Performed By: #### D ATLIPI, DATPSA, DATBMP #### [facility] [address] [place] [address] Dr. Power Covarrubias EGFR-AF AUSTRALIAN >60 Normal >=60 [facility] Comment on above: Performed By: #### D ATLIPI, DATPSA, DATBMP #### [facility] [address] [place] [address] Dr. Power Covarrubias EGFR-NON AF AUSTRALIAN >60 Normal >=60 [facility] Comment on above: Performed By: #### D ATLIPI, DATPSA, DATBMP #### [facility] [address] [place] [address] Dr. Power Covarrubias Glucose [Mass/Vol] 90 mg/dL Normal 74-106 [facility] Comment on above: Performed By: #### D ATLIPI, DATPSA, DATBMP #### [facility] [address] [address] [address] Power Covarrubias HDL NORMAL > or = 60 mg/dl - LO W CARDIOVASCULAR RISK <40 mg/dl - HIGH CARDIOVASCULAR RISK Normal [facility] Comment on above: Performed By: #### D ATLIPI, DATPSA, DATBMP #### [facility] [address] [address] [address] Power Covarrubias LDL CALC NORMAL SEE BELOW Normal [facility] Comment on above: Result Comment: <100 mg/dl OPTIMAL 100 - 129 mg/dl NEAR OR ABOVE OPTIMAL 130 - 159 mg/dl BORDERLINE HIGH 160 - 189 mg/dl HIGH >190 mg/dl VERY HIGH Performed By: #### D ATLIPI, DATPSA, DATBMP #### [facility] [address] [address] [address] Power Covarrubias Potassium [Moles/Vol] 4.0 mmol/L Normal 3.5-5.1 [facility] Comment on above: Performed By: #### D ATLIPI, DATPSA, DATBMP #### [facility] [address] [address] [address] Power Covarrubias Sodium [Moles/Vol] 140 mmol/L Normal 136-145 [facility] Comment on above: Performed By: #### D ATLIPI, DATPSA, DATBMP #### [facility] [address] [address] [address] Power Covarrubias Triglyceride [Mass/Vol] 80 mg/dL Normal <=150 [facility] Comment on above: Performed By: #### D ATLIPI, DATPSA, DATBMP #### [facility] [address] [address] [address] Power Covarrubias Urea nitrogen [Mass/Vol] 14.0 mg/dL Normal 7.0-18.0 [facility] Comment on above: Performed By: #### D ATLIPI, DATPSA, DATBMP #### [facility] [address] [address] [address] Power Covarrubias Urea nitrogen/Creatinine [Mass ratio] 16.3 mg/mg Normal [facility] Comment on above: Performed By: #### D ATLIPI, DATPSA, DATBMP #### [facility] [address] [place] [address] Dr. Power Covarrubias VLDL CALC 16.0 mg/dL Normal [facility] Comment on above: Performed By: #### D ATLIPI, DATPSA, DATBMP #### [facility] [address] [place] [address] Dr. Power Covarrubias OCC BLD IMMUNO SCREENon 06-16 OCCULT BLOOD Negative Normal NEGATIVE [facility] Comment on above: Performed By: #### O BSCRN #### [facility] [address] [place] [address] Dr. Power Covarrubias T4 [facility] 06-30-2022 T4 [Mass/Vol] 9.2 ug/dL Normal 4.5-12.0 [facility] Comment on above: Performed By: #### D ATLIPI, DATPSA, DATBMP #### [facility] [address] [place] [address] Dr. Power Covarrubias CBC AUTO DIFFon 06-29-2022 BASO # 0.0 103/ul Normal 0.0-0.1 [facility] Comment on above: Performed By: #### D ATLIPI, DATPSA, DATBMP #### [facility] [address] [place] [address] Dr. Power Covarrubias Basophils/100 WBC (Bld) 0.5 % Normal 0.2-2.0 [facility] Comment on above: Performed By: #### D ATLIPI, DATPSA, DATBMP #### [facility] [address] [place] [address] Dr. Power Covarrubias EO # 0.1 103/ul Normal 0.0-0.7 [facility] Comment on above: Performed By: #### D ATLIPI, DATPSA, DATBMP #### [facility] [address] [place] [address] Dr. Power Covarrubias Eosinophils/100 WBC (Bld) 2.5 % Normal 0.9-7.0 [facility] Comment on above: Performed By: #### D ATLIPI, DATPSA, DATBMP #### [facility] [address] [place] [address] Dr. Power Covarrubias Erythrocyte distribution width (RBC) [Ratio] 13.4 % Normal 11.0-15.0 [facility] Comment on above: Performed By: #### D ATLIPI, DATPSA, DATBMP #### [facility] [address] [place] [address] Dr. Power Covarrubias Hematocrit (Bld) [Volume fraction] 38.1 % Critically low 42.0-54.0 [facility] Comment on above: Performed By: #### D ATLIPI, DATPSA, DATBMP #### [facility] [address] [place] [address] Dr. Power Covarrubias Hemoglobin (Bld) [Mass/Vol] 12.0 g/dL Critically low 14.0-18.0 [facility] Comment on above: Performed By: #### D ATLIPI, DATPSA, DATBMP #### [facility] [address] [place] [address] Dr. Power Covarrubias IG # 0.01 10e3/ul Normal 0.00-0.03 [facility] Comment on above: Performed By: #### D ATLIPI, DATPSA, DATBMP #### [facility] [address] [place] [address] Dr. Power Covarrubias IG % 0.2 % Normal 0.0-0.5 [facility] Comment on above: Performed By: #### D ATLIPI, DATPSA, DATBMP #### [facility] [address] [place] [address] Dr. Power Covarrubias LYMPH # 0.9 103/ul Critically low 1.2-3.8 [facility] Comment on above: Performed By: #### D ATLIPI, DATPSA, DATBMP #### [facility] [address] [place] [address] Dr. Power Covarrubias Lymphocytes/100 WBC (Bld) 15.5 % Critically low 20.5-60.0 [facility] Comment on above: Performed By: #### D ATLIPI, DATPSA, DATBMP #### [facility] [address] [place] [address] Dr. Power Covarrubias MANUAL DIFF REQ NO Normal [facility] Comment on above: Performed By: #### D ATLIPI, DATPSA, DATBMP #### [facility] [address] [place] [address] Dr. Power Covarrubias MCH (RBC) [Entitic mass] 30.2 pg Normal 25.9-34.0 [facility] Comment on above: Performed By: #### D ATLIPI, DATPSA, DATBMP #### [facility] [address] [place] [address] Dr. Power Covarrubias MCHC (RBC) [Mass/Vol] 31.5 g/dL Normal 29.9-35.2 [facility] Comment on above: Performed By: #### D ATLIPI, DATPSA, DATBMP #### [facility] [address] [place] [address] Dr. Power Covarrubias MCV (RBC) [Entitic vol] 96.0 fL Critically high 80.0-94.0 [facility] Comment on above: Performed By: #### D ATLIPI, DATPSA, DATBMP #### [facility] [address] [place] [address] Dr. Power Covarrubias MONO # 0.5 103/ul Normal 0.3-0.8 [facility] Comment on above: Performed By: #### D ATLIPI, DATPSA, DATBMP #### [facility] [address] [place] [address] Dr. Power Covarrubias Monocytes/100 WBC (Bld) 9.5 % Normal 1.7-12.0 [facility] Comment on above: Performed By: #### D ATLIPI, DATPSA, DATBMP #### [facility] [address] [place] [address] Dr. Power Covarrubias NEUT # 4.1 103/ul Normal 1.4-6.5 [facility] Comment on above: Performed By: #### D ATLIPI, DATPSA, DATBMP #### [facility] [address] [address] [address] Power Covarrubias Neutrophils/100 WBC (Bld) 71.8 % Normal 43.0-75.0 [facility] Comment on above: Performed By: #### D ATLIPI, DATPSA, DATBMP #### [facility] [address] [address] [address] Power Covarrubias Platelet mean volume (Bld) [Entitic vol] 9.8 fL Normal 9.5-13.5 [facility] Comment on above: Performed By: #### D ATLIPI, DATPSA, DATBMP #### [facility] [address] [place] [address] Dr. Power Covarrubias PLT 212 103/ul Normal 150-450 [facility] Comment on above: Performed By: #### D ATLIPI, DATPSA, DATBMP #### [facility] [address] [place] [address] Dr. Power Covarrubias RBC 3.97 106/ul Critically low 4.70-6.[address] [facility] Comment on above: Performed By: #### D ATLIPI, DATPSA, DATBMP #### [facility] [address] [address] [address] Power Covarrubias WBC 5.7 103/ul Normal 4.0-11.0 [facility] Comment on above: Performed By: #### D ATLIPI, DATPSA, DATBMP #### [facility] [address] [place] [address] Dr. Power Covarrubias FREE T3on 06-29-2022 FREE T3 2.73 pg/mlL Normal 2.18-3.98 [facility] Comment on above: Performed By: #### D ATLIPI, DATPSA, DATBMP #### [facility] [address] [place] [address] Dr. Power Covarrubias GLYCOHEMOGLOBIN A1Con 2021 ADA RECOMMENDATION SEE BELOW Normal [facility] Comment on above: Result Comment: ADA RECOMMENDED LIMIT 4.0 - 6.0 ADA THERAPEUTIC TARGET < 7.0 ACTION SUGGESTED > 7.0 Performed By: #### A 1C #### [facility] [address] [place] [address] Dr. Power Covarrubias Glucose [Mass/Vol] 114 mg/dL Normal [facility] Comment on above: Performed By: #### A 1C #### [facility] [address] [place] [address] Dr. Power Covarrubias HbA1c (Bld) [Mass fraction] 5.6 % Normal 4.5-6.2 [facility] Comment on above: Performed By: #### A 1C #### [facility] [address] [place] [address] Dr. Power Covarrubias LIPID PROFILEon 06-29-2022 CHOL-HDL RATIO NORM SEE BELOW Normal [facility] Comment on above: Result Comment: 3.3 - 4.4 LOW RISK 4.4 - 7.1 AVERAGE RISK 7.1 - 11.0 MODERATE RISK >11.0 HIGH RISK Performed By: #### D ATLIPI, DATPSA, DATBMP #### [facility] [address] [place] [address] Dr. Power Covarrubias Cholesterol [Mass/Vol] 110 mg/dL Normal <=200 [facility] Comment on above: Performed By: #### D ATLIPI, DATPSA, DATBMP #### [facility] [address] [address] [address] Power Covarrubias Cholesterol in HDL [Mass/Vol] 47 mg/dL Normal 40-60 [facility] Comment on above: Performed By: #### D ATLIPI, DATPSA, DATBMP #### [facility] [address] [place] [address] Dr. Power Covarrubias Cholesterol in LDL [Mass/Vol] 51.2 mg/dL Normal [facility] Comment on above: Performed By: #### D ATLIPI, DATPSA, DATBMP #### [facility] [address] [address] [address] Power Covarrubias Cholesterol.total/Ch olesterol in HDL [Mass ratio] 2.3 {ratio} Normal [facility] Comment on above: Performed By: #### D ATLIPI, DATPSA, DATBMP #### [facility] [address] [address] [address] Power Covarrubias HDL NORMAL > or = 60 mg/dl - LO W CARDIOVASCULAR RISK <40 mg/dl - HIGH CARDIOVASCULAR RISK Normal [facility] Comment on above: Performed By: #### D ATLIPI, DATPSA, DATBMP #### [facility] [address] [address] [address] Power Covarrubias LDL CALC NORMAL SEE BELOW Normal [facility] Comment on above: Result Comment: <100 mg/dl OPTIMAL 100 - 129 mg/dl NEAR OR ABOVE OPTIMAL 130 - 159 mg/dl BORDERLINE HIGH 160 - 189 mg/dl HIGH >190 mg/dl VERY HIGH Performed By: #### D ATLIPI, DATPSA, DATBMP #### [facility] [address] [address] [address] Power Covarrubias Triglyceride [Mass/Vol] 59 mg/dL Normal <=150 [facility] Comment on above: Performed By: #### D ATLIPI, DATPSA, DATBMP #### [facility] [address] [address] [address] Power Covarrubias VLDL CALC 11.8 mg/dL Normal [facility] Comment on above: Performed By: #### D ATLIPI, DATPSA, DATBMP #### [facility] [address] [address] [address] Power Covarrubias PROF 14(COMP METB)on 022 Albumin [Mass/Vol] 3.3 g/dL Critically low 3.4-5.0 [facility] Comment on above: Performed By: #### D ATLIPI, DATPSA, DATBMP #### [facility] [address] [address] [address] Power Covarrubias Albumin/Globulin [Mass ratio] 0.9 {ratio} Normal [facility] Comment on above: Performed By: #### D ATLIPI, DATPSA, DATBMP #### [facility] [address] [place] [address] Dr. Power Covarrubias ALP [Catalytic activity/Vol] 100 U/L Normal 46-116 [facility] Comment on above: Performed By: #### D ATLIPI, DATPSA, DATBMP #### [facility] [address] [place] [address] Dr. Power Covarrubias ALT [Catalytic activity/Vol] 16 U/L Normal 16-63 [facility] Comment on above: Performed By: #### D ATLIPI, DATPSA, DATBMP #### [facility] [address] [place] [address] Dr. Power Covarrubias Anion gap [Moles/Vol] 11.4 mmol/L Normal [facility] Comment on above: Performed By: #### D ATLIPI, DATPSA, DATBMP #### [facility] [address] [place] [address] Dr. Power Covarrubias AST [Catalytic activity/Vol] 14 U/L Critically low 15-37 [facility] Comment on above: Performed By: #### D ATLIPI, DATPSA, DATBMP #### [facility] [address] [place] [address] Dr. Power Covarrubias Bilirubin [Mass/Vol] 0.7 mg/dL Normal 0.2-1.0 [facility] Comment on above: Performed By: #### D ATLIPI, DATPSA, DATBMP #### [facility] [address] [place] [address] Dr. Power Covarrubias Calcium [Mass/Vol] 9.0 mg/dL Normal 8.5-10.1 [facility] Comment on above: Performed By: #### D ATLIPI, DATPSA, DATBMP #### [facility] [address] [place] [address] Dr. Power Covarrubias Chloride [Moles/Vol] 107 mmol/L Normal 98-107 [facility] Comment on above: Performed By: #### D ATLIPI, DATPSA, DATBMP #### [facility] [address] [place] [address] Dr. Power Covarrubias CO2 [Moles/Vol] 28.5 mmol/L Normal 21.0-32.0 [facility] Comment on above: Performed By: #### D ATLIPI, DATPSA, DATBMP #### [facility] [address] [place] [address] Dr. Power Covarrubias Creatinine [Mass/Vol] 0.87 mg/dL Normal 0.70-1.30 [facility] Comment on above: Performed By: #### D ATLIPI, DATPSA, DATBMP #### [facility] [address] [place] [address] Dr. Power Covarrubias EGFR-AF AUSTRALIAN >60 Normal >=60 [facility] Comment on above: Performed By: #### D ATLIPI, DATPSA, DATBMP #### [facility] [address] [place] [address] Dr. Power Covarrubias EGFR-NON AF AUSTRALIAN >60 Normal >=60 [facility] Comment on above: Performed By: #### D ATLIPI, DATPSA, DATBMP #### [facility] [address] [place] [address] Dr. Power Covarrubias Globulin (S) [Mass/Vol] 3.6 g/dL Normal [facility] Comment on above: Performed By: #### D ATLIPI, DATPSA, DATBMP #### [facility] [address] [place] [address] Dr. Power Covarrubias Glucose [Mass/Vol] 90 mg/dL Normal 74-106 [facility] Comment on above: Performed By: #### D ATLIPI, DATPSA, DATBMP #### [facility] [address] [place] [address] Dr. Power Covarrubias Potassium [Moles/Vol] 3.9 mmol/L Normal 3.5-5.1 [facility] Comment on above: Performed By: #### D ATLIPI, DATPSA, DATBMP #### [facility] [address] [place] [address] Dr. Power Covarrubias Protein [Mass/Vol] 6.9 g/dL Normal 6.4-8.2 [facility] Comment on above: Performed By: #### D ATLIPI, DATPSA, DATBMP #### [facility] [address] [place] [address] Dr. Power Covarrubias Sodium [Moles/Vol] 143 mmol/L Normal 136-145 [facility] Comment on above: Performed By: #### D ATLIPI, DATPSA, DATBMP #### [facility] [address] [place] [address] Dr. Power Covarrubias Urea nitrogen [Mass/Vol] 13.0 mg/dL Normal 7.0-18.0 [facility] Comment on above: Performed By: #### D ATLIPI, DATPSA, DATBMP #### [facility] [address] [place] [address] Dr. Power Covarrubias Urea nitrogen/Creatinine [Mass ratio] 14.9 mg/mg Normal [facility] Comment on above: Performed By: #### D ATLIPI, DATPSA, DATBMP #### [facility] [address] [place] [address] Dr. Power Covarrubias TSHon 06-29-2022 TSH 2.585 uIU/mL Normal 0.358-3.740 [facility] Comment on above: Performed By: #### T SH, LIPID, FT3, CMP #### [facility] [address] [place] [address] Dr. Power Covarrubias CBC AUTO DIFFon 04-09-2022 BASO # 0.1 103/ul Normal 0.0-0.1 [facility] Comment on above: Performed By: #### D ATCBC #### [facility] [address] [place] [address] Dr. Power Covarrubias Basophils/100 WBC (Bld) 1.0 % Normal 0.2-2.0 [facility] Comment on above: Performed By: #### D ATCBC #### [facility] [address] [place] [address] Dr. Power Covarrubias EO # 0.2 103/ul Normal 0.0-0.7 [facility] Comment on above: Performed By: #### D ATCBC #### [facility] [address] [place] [address] Dr. Power Covarrubias Eosinophils/100 WBC (Bld) 3.7 % Normal 0.9-7.0 [facility] Comment on above: Performed By: #### D ATCBC #### [facility] [address] [place] [address] Dr. Power Covarrubias Erythrocyte distribution width (RBC) [Ratio] 13.3 % Normal 11.0-15.0 [facility] Comment on above: Performed By: #### D ATCBC #### [facility] [address] [place] [address] Dr. Power Covarrubias Hematocrit (Bld) [Volume fraction] 37.8 % Critically low 42.0-54.0 [facility] Comment on above: Performed By: #### D ATCBC #### [facility] [address] [place] [address] Dr. Power Covarrubias Hemoglobin (Bld) [Mass/Vol] 12.4 g/dL Critically low 14.0-18.0 [facility] Comment on above: Performed By: #### D ATCBC #### [facility] [address] [place] [address] Dr. Power Covarrubias IG # 0.01 10e3/ul Normal 0.00-0.03 [facility] Comment on above: Performed By: #### D ATCBC #### [facility] [address] [place] [address] Dr. Power Covarrubias IG % 0.2 % Normal 0.0-0.5 [facility] Comment on above: Performed By: #### D ATCBC #### [facility] [address] [place] [address] Dr. Power Covarrubias LYMPH # 1.0 103/ul Critically low 1.2-3.8 [facility] Comment on above: Performed By: #### D ATCBC #### [facility] [address] [place] [address] Dr. Power Covarrubias Lymphocytes/100 WBC (Bld) 19.0 % Critically low 20.5-60.0 [facility] Comment on above: Performed By: #### D ATCBC #### [facility] [address] [place] [address] Dr. Power Covarrubias MCH (RBC) [Entitic mass] 30.9 pg Normal 25.9-34.0 [facility] Comment on above: Performed By: #### D ATCBC #### [facility] [address] [place] [address] Dr. Power Covarrubias MCHC (RBC) [Mass/Vol] 32.8 g/dL Normal 29.9-35.2 [facility] Comment on above: Performed By: #### D ATCBC #### [facility] [address] [place] [address] Dr. Power Covarrubias MCV (RBC) [Entitic vol] 94.3 fL Critically high 80.0-94.0 [facility] Comment on above: Performed By: #### D ATCBC #### [facility] [address] [place] [address] Dr. Power Covarrubias MONO # 0.5 103/ul Normal 0.3-0.8 [facility] Comment on above: Performed By: #### D ATCBC #### [facility] [address] [place] [address] Dr. Power Covarrubias Monocytes/100 WBC (Bld) 9.4 % Normal 1.7-12.0 [facility] Comment on above: Performed By: #### D ATCBC #### [facility] [address] [place] [address] Dr. Power Covarrubias NEUT # 3.4 103/ul Normal 1.4-6.5 [facility] Comment on above: Performed By: #### D ATCBC #### [facility] [address] [place] [address] Dr. Power Covarrubias Neutrophils/100 WBC (Bld) 66.7 % Normal 43.0-75.0 [facility] Comment on above: Performed By: #### D ATCBC #### [facility] [address] [address] [address] Power Covarrubias Platelet mean volume (Bld) [Entitic vol] 9.9 fL Normal 9.5-13.5 [facility] Comment on above: Performed By: #### D ATCBC #### [facility] [address] [address] [address] Power Covarrubias PLT 205 103/ul Normal 150-450 [facility] Comment on above: Performed By: #### D ATCBC #### [facility] [address] [address] [address] Power Covarrubias RBC 4.01 106/ul Critically low 4.70-6.10 [facility] Comment on above: Performed By: #### D ATCBC #### [facility] [address] [place] [address] Dr. Power Covarrubias WBC 5.1 103/ul Normal 4.0-11.0 [facility] Comment on above: Performed By: #### D ATCBC #### [facility] [address] [place] [address] Dr. Power Covarrubias BRE- BMP WITH LIPIDon 2021 Anion gap [Moles/Vol] 9.5 mmol/L Normal [facility] Comment on above: Performed By: #### D ATLIPI, DATPSA, DATBMP #### [facility] [address] [address] [address] Power Covarrubias Calcium [Mass/Vol] 9.0 mg/dL Normal 8.5-10.1 [facility] Comment on above: Performed By: #### D ATLIPI, DATPSA, DATBMP #### [facility] [address] [place] [address] Dr. Power Covarrubias Chloride [Moles/Vol] 108 mmol/L Critically high 98-107 [facility] Comment on above: Performed By: #### D ATLIPI, DATPSA, DATBMP #### [facility] [address] [place] [address] Dr. Power Covarrubias Cholesterol [Mass/Vol] 114 mg/dL Normal <=200 [facility] Comment on above: Performed By: #### D ATLIPI, DATPSA, DATBMP #### [facility] [address] [address] [address] Power Covarrubias Cholesterol in HDL [Mass/Vol] 49 mg/dL Normal 40-60 [facility] Comment on above: Performed By: #### D ATLIPI, DATPSA, DATBMP #### [facility] [address] [address] [address] Power Covarrubias Cholesterol in LDL [Mass/Vol] 50.4 mg/dL Normal [facility] Comment on above: Performed By: #### D ATLIPI, DATPSA, DATBMP #### [facility] [address] [place] [address] Dr. Power Covarrubias CO2 [Moles/Vol] 28.3 mmol/L Normal 21.0-32.0 [facility] Comment on above: Performed By: #### D ATLIPI, DATPSA, DATBMP #### [facility] [address] [address] [address] Power Covarrubias Creatinine [Mass/Vol] 0.88 mg/dL Normal 0.70-1.30 [facility] Comment on above: Performed By: #### D ATLIPI, DATPSA, DATBMP #### [facility] [address] [address] [address] Power Covarrubias EGFR-AF AUSTRALIAN >60 Normal >=60 [facility] Comment on above: Performed By: #### D ATLIPI, DATPSA, DATBMP #### [facility] [address] [address] [address] Power Covarrubias EGFR-NON AF AUSTRALIAN >60 Normal >=60 [facility] Comment on above: Performed By: #### D ATLIPI, DATPSA, DATBMP #### [facility] [address] [address] [address] Power Covarrubias Glucose [Mass/Vol] 107 mg/dL Critically high 74-106 [facility] Comment on above: Performed By: #### D ATLIPI, DATPSA, DATBMP #### [facility] [address] [address] [address] Power Covarrubias HDL NORMAL > or = 60 mg/dl - LO W CARDIOVASCULAR RISK <40 mg/dl - HIGH CARDIOVASCULAR RISK Normal [facility] Comment on above: Performed By: #### D ATLIPI, DATPSA, DATBMP #### [facility] [address] [address] [address] Power Covarrubias LDL CALC NORMAL SEE BELOW Normal [facility] Comment on above: Result Comment: <100 mg/dl OPTIMAL 100 - 129 mg/dl NEAR OR ABOVE OPTIMAL 130 - 159 mg/dl BORDERLINE HIGH 160 - 189 mg/dl HIGH >190 mg/dl VERY HIGH Performed By: #### D ATLIPI, DATPSA, DATBMP #### [facility] [address] [address] [address] Power Covarrubias Potassium [Moles/Vol] 3.8 mmol/L Normal 3.5-5.1 [facility] Comment on above: Performed By: #### D ATLIPI, DATPSA, DATBMP #### [facility] [address] [address] [address] Power Covarrubias Sodium [Moles/Vol] 142 mmol/L Normal 136-145 [facility] Comment on above: Performed By: #### D ATLIPI, DATPSA, DATBMP #### [facility] [address] [address] [address] Power Covarrubias Triglyceride [Mass/Vol] 73 mg/dL Normal <=150 [facility] Comment on above: Performed By: #### D ATLIPI, DATPSA, DATBMP #### [facility] [address] [address] [address] Power Covarrubias Urea nitrogen [Mass/Vol] 12.0 mg/dL Normal 7.0-18.0 [facility] Comment on above: Performed By: #### D ATLIPI, DATPSA, DATBMP #### [facility] [address] [address] [address] Power Covarrubias Urea nitrogen/Creatinine [Mass ratio] 13.6 mg/mg Normal [facility] Comment on above: Performed By: #### D ATLIPI, DATPSA, DATBMP #### [facility] [address] [address] [address] Power Covarrubias VLDL CALC 14.6 mg/dL Normal [facility] Comment on above: Performed By: #### D ATLIPI, DATPSA, DATBMP #### [facility] [address] [address] [address] Power Covarrubias Cardiovascular Lab Reporton 07-03-2020 Cardiovascular Lab Report [facility] Patient Name: [facility] MR #: [id number] Physician: Shiloh Hester Department of M.D. Medicine Service Date: 07/03/2020 Division of Birthdate: 1945 Cardiology Room #: [facility] [place] [address] Cardiovascular Laboratory Report FINAL IMPRESSIONS: 1. Vxxh-ro-edxiihvo 3-vessel coronary artery disease. 2. Yuei-bf-mimpovzr left main coronary artery disease that appears [...] Follow up with Dr. Hester in the [facility] in the next 1 to 2 months. [...] to access the left radial artery. A 6-Pashto glide sheath was inserted without difficulty. Resistance [...] Hester M.D. Date Trans: 07/03/2020 02:42 P/soniyao [id number] cc: Neo Gould M.D. [address], [facility] [place] [address] [facility] Vital Signs Date Time Vital Sign Value Performing Clinician Zbigniew stinson 03-28-2023 14:23-0400 Blood Pressure Location Zhang NILL [facility] 03-28-2023 14:23-0400 Diastolic blood pressure 60 mm[Hg] Zhang NILL [facility] 03-28-2023 14:23-0400 Heart rate 60 /min Zhang NILL [facility] 03-28-2023 14:23-0400 Respiratory rate 16 /min Zhang NILL [facility] 03-28-2023 14:23-0400 Systolic blood pressure 116 mm[Hg] Zhang NILL [facility] Encounters Encounter Date Encounter Type Care Provider Facility Start: 02-19-2024 End: 02-19-2024 ambulatory [facility] Start: 12-13-2023 End: 12-13-2023 ambulatory [facility] Start: 11-27-2023 End: 11-27-2023 [facility] Start: 09-13-2023 ambulatory Neo Gould Facility:[facility] Start: 06-15-2023 ambulatory Zhang DENISE Facility:[facility] Start: 06-01-2023 End: 06-01[facility]2023 [facility] Start: 05-09-2023 ambulatory Zhang DENISE Facility :[facility] Start: 04-26-2023 End: 04-27-2023 ambulatory Zhang DENISE Facility:[id number] Start: 03-28-2023 End: 03-29-2023 ambulatory Zhang DENISE Facility:[facility] [place] Start: 03-28-2023 End: 03-28-2023 Patient encounter procedure Zhang DENISE [facility] Start: 03-03-2023 ambulatory Neo Gould Facility:[facility] Start: 03-03-2023 End: 03-04-2023 ambulatory Neo Gould Facility:[facility] Start: 03-01-2023 End: 03-02-2023 ambulatory NONE LISTED REQUEST Facility: Start: 12-10-2022 End: 12-11-[address] NEO GOULD . Facility:[facility] Start: 08-31-2022 End: 09-01-[address] NONE LISTED REQUEST Facility:[facility] Start: 06-29-2022 End: 06-30-2022 ambulatory PEBBLES WOODARD Facility: Start: 04-09-2022 End: 04-10-[address] NONE LISTED REQUEST Facility: Procedures Date Procedure Procedure Detail Performing Clinician Start: 03-01-2023 PSA screening PEBBLES B OES Comment on above: Performed By: #### D ATLIPI, DATPSA, DATBMP #### [facility] [address] [place] [address] Dr. Power Covarrubias Start: 08-31-2022 PSA screening PEBBL[facility] Comment on above: Performed By: #### D ATLIPI, DATPSA, DATBMP #### [facility] [address] [place] [address] Dr. Power Covarrubias Start: 06-29-2022 PSA screening PEBBL[facility] Comment on above: Performed By: #### P SASC #### [facility] [address] [place] [address] Dr. Power Covarrubias Start: 10-04-2017 Colonoscopy Zhang NG Excision of lumbar intervertebral disc Zhang DENISE Comment on above: L5 Repair of hip Zhang DENISE Immunizations Immunization Date Immunization Notes Care Provider Fa cili 04-29-2021 SARS-CoV-2 (COVID-19 ) mRNA BNT-162b2 vax Zhang DENISE [facility] 04-09-2021 SARS-CoV-2 (COVID-19 ) mRNA BNT-162b2 vax Zhang DENISE [facility] Payers Date Payer Category Payer Unknown [id number] 1958 Self-pay 1958 Unknown [id number] 1945 Unknown [id number] 2.16.84 [id number] 1945 Unknown [id number] 2.16.84 [id number] 1945 Unknown [id number] 2.16.8 [id number] 1945 Unknown [id number] 2.16.8 [id number] 1945 Unknown [id number] 2.16.8 [id number] 1945 Unknown [id number] 2.16.8 [id number] 1945 Unknown [id number] 2.16.8 [id number] 1945 Unknown [id number] 2.16.8 [id number] Unknown [id number] 2.16.84 [id number] Unknown [id number] 2.16.84 [id number] Unknown [id number] 2.16.84 [id number] Social History Date Type Detail Facility Start: 03-28-2023 Tobacco smoking status Never s moked tobacco (finding) [facility] Tobacco smoking status Never Gener [facility] Sex Assigned At Male [facility] Functional Status Date Assessment Result Facility 03-28-2023 Functional Status N/A [facility] Progress note 02-19-2024 Note Date & Type Note Facility 02-19-2024 Note [facility] Note Chief Complaint: Patient here for follow up [facility] for elevated troponin and bradycardia. He was discharged with 7 day Holter monitor. He presented to the ED for another fall. He denies chest pain, SOB, lightheadedness/syncope, and palpitations. Lisinopril was replaced with hydralazine while inpatient. HPI: Oscar Cox is a 78 y.o. male With a known history of mild to moderate coronary artery disease, atrial fibrillation, frequent falls; he was recently admitted after a fall. He was found to have bradycardia. His high-sensitivity troponin was found to be elevated. He clarifies that his fall was related to inability to move his legs; he had no significant lightheadedness, dizziness, and no syncope. He denies chest pain. The report shows that he had heart rates between 31-40 however does not mention the time of day or whether he was awake or asleep. Discharge Diagnosis (1) Fall: (2) Weakness: (3) Bradycardia with 31-40 beats per minute: Plan Status post fall-possibly related to bradycardia. Stable at the time of discharge Elevated high-sensitivity troponin. Trending downward now. Resolved at time of discharge Status post fall-patient need of more extensive rehabilitation. Iron deficiency anemia-improving at the time of discharge Admission status: Patient initially placed in observation but now with elevated troponin and significant bradycardia, medically necessary treatment will span at least [address] patient inpatient status Cardiology ROS: Review of Systems Cardiovascular: Positive [...] by mouth at bedtime., Disp: , Rfl: furosemide (Lasix) 40 mg tablet, Take 40 mg by mouth twice a day., Disp: , Rfl: hydrALAZINE (Apresoline) 50 mg tablet, Take 50 mg by mouth in the morning and at bedtime., Disp: , Rfl: potassium chloride CR (K-Tab) 20 mEq ER tablet, Take 1 tablet by mouth in the morning., Disp: , Rfl: rOPINIRole (Requip) 1 mg tablet, Take 1 mg by mouth at bedtime., Disp: , Rfl: baclofen (Lioresal) 10 mg tablet, TAKE 1/2 (ONE-HALF) TO 1 (ONE) TABLET BY MOUTH TWICE DAILY, Disp: , Rfl: hydroxychloroquine (Plaquenil) 200 mg tablet, Take 1 tablet by mouth in the morning., Disp: , Rfl: hyoscyamine (Anaspaz,Levsin) 0.125 mg tablet, Take 0.125 mg by mouth every 4 (four) hours if needed for cramping., Disp: , Rfl: lisinopril 10 mg tablet, Take 1 tablet (10 mg) by mouth in the morning. (Patient not taking: Reported on 02/19/2024), Disp: 90 tablet, Rfl: 3 oxybutynin (Ditropan) 5 mg tablet, Take 1 tablet by mouth in the morning, afternoon, and at bedtime., Disp: , Rfl: Last Recorded Vitals BP 138/66 (BP Location: Right arm, Patient Position: Sitting) Pulse 55 Ht 1.778 m (5' 10 ) Wt 101 kg (222 lb) SpO2 99% BMI 31.85 kg/m??? Physical Examination: GENERAL: alert and oriented [...] 07/03/2020 Cardiovascular Laboratory Report FINAL IMPRESSIONS: 1. Cogo-yq-shimtndm 3-vessel coronary artery disease. 2. Hgmz-lg-ymilrcbo left main coronary artery disease that appears unchanged from prior angiography. 3. Normal global left ventricular (more content not included)... [facility] Progress note 12-13-2023 Note Date & Type Note Facility 12-13-2023 Note [facility] Cardiology Clinic Note Chief Complaint: Patient here for shared decision making regarding LAAO. When he saw Dr. Ortiz 2 weeks ago, his reduced lisinopril down [...] 07/03/2020 Cardiovascular Laboratory Report FINAL IMPRESSIONS: 1. Rvtu-zg-nyduxuzt 3-vessel coronary artery disease. 2. Kchv-fg-iqmtqjnc left main coronary artery disease that appears [...] atrium is sever (more content not included)... [facility] Progress note 11-27-2023 Note Date & Type Note Facility 11-27-2023 Note [facility] Subjective Oscar Cox is a 78 [...] Cognitive communication deficit Atherosclerotic heart disease of asa'[place] coronary artery without angina pectoris Diarrhea Hypokalemia [...] discuss left atrial appendage closure. His primary ab initio etl developer is Dr Shiloh Hester. He has history [...] Latest known visit (more content not included)... [facility] Progress note 06-01-2023 Note Date & [...] month ago He was admitted 04/28-05/02 at [facility] following the last fall and has [...] bradycardia during ho (more content not included)... [facility] Clinical Note 03-28-2023 Note Date & [...] informed consent obtained. 2. Chronic anticoagulation (Z79.01: [facility] (current) use of anticoagulants) hold Eliquis 2 [...] SARS-CoV-2 (COVID-19) mRNA BNT-162b2 vax 04/09/2021 Recorded [facility] Comment on above: Result Comment: Elec tronically Signed By: HOWIE LOPEZ, Zhang Jensen\.inocencio\Date and Time Signed: 03/28/23 20:17 EDT Evaluation + Plan note Note Date & Type Note Facility Evaluation + Plan note No data available for this section [facility] Discharge instructions Note Date & Type Note Facility Hospital Discharge instructions No data available for this section [facility] Progress note Note Date & Type Note Facility Progress note No data available for this section [facility] Summary Purpose Family History No Family History [...] and content) DATE CREATED AUTHOR 07/07/2020 [facility] DATE CREATED AUTHOR AUTHOR'S ORGANIZ ATION 03/02/2023 [facility] DATE CREATED AUTHOR AUTHOR'S ORGANIZ ATION 07/23/2023 [facility] DATE CREATED AUTHOR AUTHOR'S ORGANIZ ATION 02/19/2024 [facility] Patient Care team informatio n (unrecognized section and content) Personnel Name: Neo Gould MD Address: Address: [address] [place] [address] FOR RECORDS PERTAINING TO PATIENTS WHO ARE [...] BE BASED ON THE PRIMARY CLINICAL RECORDS. [facility] [employer] software [facility]. provides no warranty or guarantee of the accuracy or completeness of information in this document.
[2024-03-04 08:38] LABS: Prostate Specific Antigen Dx <0.13 ng/mL (<=4.00)
== END 2024-03-04 01:49 | disposition home or self-care (01) ==
LOC: LAB 01:48
PROVIDERS: PCP Family Medicine; Visit Provider Family Medicine
DX: R97.20 Elevated prostate specific antigen [PSA] (principal)
CPT/HCPCS: 36415; 84153

== ENCOUNTER 2024-03-22 08:25 | Outpatient (OUT) | payer MEDICARE, SELFPAY ==
--- NOTE | 2024-03-22 08:30 | NM_ITS ---
Patient Name: JACKSON IQBAL MR#: [id number] : 1945 Exam Date: 03/22/2024 Ordering Doctor: DR Shiloh Hester M.D. RADIOLOGY REPORT PROCEDURE: NM [place] PERF SPECT REST STR COMPARISON: None. INDICATIONS: ABNORMAL EKG TECHNIQUE: Exam Description: Stress/Rest one day protocol gated SPECT Rest Imagin.9 mCi Tc-99m Cardiolite IV on 03/22/2024 Stress Imaging 30.7 mCi Tc-99m Cardiolite IV on 03/22/2024 Exercise Protocol: 0.4 mg Lexiscan given IV Heart Rate (bpm): Rest: 40 Max: 56 PMHR: 39 Blood Pressure: Rest: 146/68 Max: 146/68 Symptoms: Rest and peak stress ECG findings were pending and the exercise portion of the study was pending per attending physician Dr. IQBAL . For more details please see separate cardiac stress test report. FINDINGS: QUALITY OF STUDY: Good. PERFUSION DEFECT: LOCATION: Basal inferior. Mid-inferior. Apical anterior. Apical inferior. [place]. SIZE: SEVERITY: TYPE: WALL MOTION: Normal. LV SIZE: Enlarged; EDV 146 mL. TID / TCD: None; 0.9 LVEF: Normal. Calculated EF 67%. SUMMARY: Myocardial perfusion imaging study has ABNORMAL findings. CONCLUSION: 1. No acute or reversible ischemia. 2. Heterogeneous radiotracer uptake with areas of mildly decreased perfusion involving the anteroseptal apical wall, and the entire inferior wall. 3. Left ventriculomegaly, 146 mL. 4. Normal left ventricle wall motion and ejection fraction, 67%. Dictated by: Alli Storm M.D. on 03/22/2024 at 15:08 Approved by: Alli Storm M.D. on 03/22/2024 at 15:15
--- OUTSIDE RECORDS SUMMARY | 2024-03-22 08:31 | XMS_ITS | CCD ---
Author Organization [facility] Care Team Providers Care Regulatory Affairs Intern Name Role Phone PEBBLES WOODARD Primary Care [...] ble REQUEST, DR ALLEN LISTED Attending Unavaila FELICIA Ramos Primary Care Unavailable FELICIA TAPIA Consulting Unavailable REQUEST, DR ALLEN LISTED Admitting Unavaila ble REQUEST, DR ALLEN LISTED Consulting Unavaila ble REQUEST, DR ALLEN LISTED Attending Unavaila PEBBLES Lei Primary Care Unavailable DEANDRE ., DR LARSON Primary Care Unavailable MISC, DR ALBERTO Admitting Unavailable MISC, DR ALBERTO Consulting Unavailable MISC, DR ALBERTO Attending Unavailable Neo Gould Primary Care Physician [phone] FELICIA TAPIA Attending Unavailable NEO GOULD Referring Unavailable NEO GOULD Primary Care Unavailable SHILOH HESTER Attending Unavailable JONATHAN HARRISON Attending Unavailable ANATOLIY NOVAK Attending Unavailable ROBERT HESTERAB Attending Unavailable NILZhang Alvarez Attending Unavailable NILLZhang Attending Unavailable NILLZhang Attending Unavailable NILLZhang Attending Unavailable Ghislaine Morales Attending Unavailable Neo Gould Referring Unavailable TINY TRAVIS Attending Unavailable Allergies Allergy Classification Reported Allergen(s) Allergy Type Date of Onset Reaction(s) Facility (1 source) No Known Medication Allergies; 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: [No Known Medication Allergies] Propensity to adverse reactions (disorder) [facility] Repository Medications Current Medications Medication [...] te Episodic/Chronic Cancer of prostate (1 source) Malignant neoplasm of prostate; 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: [Malignant neoplasm of prostate] Onset: 03-05-2024 Chronic Cancer of prostate (1 source) History of malignant neoplasm of prostate 03-15-2023 Episodic Cardiac dysrhythmias (4 sources) Atrial fibrillation; 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: [Premature beats] Onset: 06-01-2023 03-15-2023 Chronic Congestive heart failure; nonhypertensive (1 source) Diastolic heart failure 03-15-2023 Chronic Coronary atherosclerosis and other heart disease (3 sources) Coronary arteriosclerosis; 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: [Atherosclerotic heart disease of [place] coronary artery without angina pectoris] Onset: 12-13-2023 03-15-2023 Chronic Disorders of lipid metabolism (4 sources) Hyperlipidemia, unspecified; 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: [HYPERLIPIDEMIA UNSPECIFIED] Onset: 06-29-2022 Chronic Essential hypertension (3 sources) Hypertensive disorder; 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: [Essential (primary) hypertension] Onset: 05-11-2023 03-15-2023 Chronic Osteoarthritis (4 sources) Primary generalized (osteo)arthritis; 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: [PRIMARY GENERALIZED OSTEOARTHRITIS] Onset: 12-10-2022 Chronic Other aftercare (1 source) 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; 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: [OTH INTELLIGENCE APPLICATIONS CURRENT DRUG THERAPY] Onset: 12-14-2022 Episodic Other aftercare (2 sources) Long-term current use of anticoagulant; 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] Onset: 03-28-2023 Episodic Other and unspecified benign neoplasm (3 sources) History of polyp of colon; 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: [Personal history of colonic polyps] Onset: 03-28-2023 Episodic Other nutritional; endocrine; and metabolic disorders [...] unspecified; 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: [Bradycardia, unspecified] Onset: 06-01-2023 Episodic Complications of surgical procedures or medical care (2 sources) Hypotension due to drugs; 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: [Hypotension due to drugs] Onset: 11-27-2023 Episodic Diabetes mellitus without complication (1 source) Other abnormal glucose; 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: [OTHER ABNORMAL GLUCOSE] Onset: 07-03-2022 Episodic Genitourinary symptoms and ill-defined conditions (2 sources) Gross hematuria; 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: [Gross hematuria] Onset: 11-27-2023 Episodic Other connective tissue disease (2 sources) Repeated falls; 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: [Repeated falls] Onset: 11-27-2023 Episodic Other lower respiratory disease (2 sources) [...] Test Name Value Interpretation Reference Range Facility 36on 03-07-2024 36 PT INFIRMED AND ORDE R SENT Normal [facility] Office Visiton 02-19-2024 Follow-up visit [id number] Oscar Cox 1945 M Date Provider Department Center 02/19/2024 SHILOH SANTACRUZ Family History Family history unknown: Yes Level of Service:07215 NC OFFICE/OUTPATIENT ESTABLISHED LOW MDM 20 MIN Normal [facility] Office Visiton 12-13-2023 Follow-up visit [id number] Oscar Cox 1945 M Date Provider Department Center 12/13/2023 SHILOH SANTACRUZ Family History Family history unknown: Yes Level of Service:93557 NC OFFICE/OUTPATIENT ESTABLISHED MOD MDM 30 MIN Normal [facility] Office Visiton 11-27-2023 Follow-up visit [id number] Oscar Cox 1945 M Date Provider Department Center 11/27/2023 JONATHAN GALAVIZ Family History Family history unknown: Yes Level of Service:15345 NC OFFICE/OUTPATIENT ESTABLISHED MOD MDM 30 MIN Normal [facility] Retirement Recordson 07-04 Retirement Records [id number] CD:127 Normal [facility] 37on 06-01-2023 37 -Reduce Lisinopril t o 10 mg once a day -Will get an ultrasound of your heart -Continue Lasix 40 mg twice a day -Follow-up with Dr. Harrison to discuss watchman -Start Eliquis 2.5 mg twice a day and monitor for more bleeding Normal [facility] Office Visiton 06-01-2023 Follow-up visit [id number] Oscar Cox 1945 M Date Provider Department Center 06/01/2023 [id number] NOVAK ABILIO Parada Family History Family history unknown: Yes Level of Service:68110 NC OFFICE/OUTPATIENT ESTABLISHED MOD MDM 30-39 MIN Reason for Visit and Comments: Follow-up [977469] - Concerns due to increased swelling bilateral legs and also having blood in urine - Eliquis is being held at the moment Normal [facility] Orders Onlyon 06-01-2023 Orders Only [id number] Oscar Cox 1945 M Date Provider Department Center 06/01/2023 ELVIN CADENA ABILIO Ballesteros [facility] Family History Family history unknown: Yes Normal [facility] Reminderson 05-10-2023 Reminders - From: Pennie Bose LPN To: GSN - Clinical; Sent: 05/10/2023 10:13:27 EDT Show up: 03/27/2028 07:00:00 EDT Subject: colonoscopy recall Due Date/Time: 04/26/2028 07:00:00 EDT Reminder/Recall Patient due for surveillance colonoscopy 04/26/2028. Normal [facility] Pathology Noteon 05-03-2023 Pathology Note [id number] 0CD:127 Normal [facility] Outside Colonoscopyon 2022 Outside Colonoscopy [id number] 0CD:127 [facility] Pre-Certification Formon Pre-Certification Form [id number]. 00CD:127 [facility] Consent for Procedure/Surger yon 03-29-2023 Consent for Procedure/Surgery [id number] 0CD:127 [facility] Ambulatory Visit Summaryon 0 03-28-2023 [...] history of colonic polyps Premature beats Normal [facility] CBC AUTO DIFFon 03-01-2023 BASO # 0.0 103/ul Normal 0.0-0.1 [facility] Comment on above: Performed By: #### D ATCBC #### [facility] [address] [address] [address] Power Covarrubias Basophils/100 WBC (Bld) 0.7 % Normal 0.2-2.0 [facility] Comment on above: Performed By: #### D ATCBC #### [facility] [address] [address] [address] Power Covarrubias EO # 0.1 103/ul Normal 0.0-0.7 [facility] Comment on above: Performed By: #### D ATCBC #### [facility] [address] [address] [address] Power Covarrubias Eosinophils/100 WBC (Bld) 1.8 % Normal 0.9-7.0 [facility] Comment on above: Performed By: #### D ATCBC #### [facility] [address] [address] [address] Power Covarrubias Erythrocyte distribution width (RBC) [Ratio] 13.3 % Normal 11.0-15.0 [facility] Comment on above: Performed By: #### D ATCBC #### [facility] [address] [address] [address] Power Covarrubias Hematocrit (Bld) [Volume fraction] 40.7 % Critically low 42.0-54.0 [facility] Comment on above: Performed By: #### D ATCBC #### [facility] [address] [address] [address] Power Covarrubias Hemoglobin (Bld) [Mass/Vol] 12.9 g/dL Critically low 14.0-18.0 [facility] Comment on above: Performed By: #### D ATCBC #### [facility] [address] [address] [address] Power Covarrubias IG # 0.01 10e3/ul Normal 0.00-0.03 [facility] Comment on above: Performed By: #### D ATCBC #### [facility] [address] [place] [address] Dr. Power Covarrubias IG % 0.2 % Normal 0.0-0.5 [facility] Comment on above: Performed By: #### D ATCBC #### [facility] [address] [place] [address] Dr. Power Covarrubias LYMPH # 0.7 103/ul Critically low 1.2-3.8 [facility] Comment on above: Performed By: #### D ATCBC #### [facility] [address] [place] [address] Dr. Power Covarrubias Lymphocytes/100 WBC (Bld) 16.3 % Critically low 20.5-60.0 [facility] Comment on above: Performed By: #### D ATCBC #### [facility] [address] [place] [address] Dr. Power Covarrubias MCH (RBC) [Entitic mass] 29.6 pg Normal 25.9-34.0 [facility] Comment on above: Performed By: #### D ATCBC #### [facility] [address] [place] [address] Dr. Power Covarrubias MCHC (RBC) [Mass/Vol] 31.7 g/dL Normal 29.9-35.2 [facility] Comment on above: Performed By: #### D ATCBC #### [facility] [address] [place] [address] Dr. Power Covarrubias MCV (RBC) [Entitic vol] 93.3 fL Normal 80.0-94.0 [facility] Comment on above: Performed By: #### D ATCBC #### [facility] [address] [place] [address] Dr. Power Covarrubias MONO # 0.3 103/ul Normal 0.3-0.8 [facility] Comment on above: Performed By: #### D ATCBC #### [facility] [address] [place] [address] Dr. Power Covarrubias Monocytes/100 WBC (Bld) 7.5 % Normal 1.7-12.0 [facility] Comment on above: Performed By: #### D ATCBC #### [facility] [address] [place] [address] Dr. Power Covarrubias NEUT # 3.4 103/ul Normal 1.4-6.5 [facility] Comment on above: Performed By: #### D ATCBC #### [facility] [address] [place] [address] Dr. Power Covarrubias Neutrophils/100 WBC (Bld) 73.5 % Normal 43.0-75.0 [facility] Comment on above: Performed By: #### D ATCBC #### [facility] [address] [place] [address] Dr. Power Covarrubias Platelet mean volume (Bld) [Entitic vol] 9.9 fL Normal 9.5-13.5 [facility] Comment on above: Performed By: #### D ATCBC #### [facility] [address] [place] [address] Dr. Power Covarrubias PLT 198 103/ul Normal 150-450 [facility] Comment on above: Performed By: #### D ATCBC #### [facility] [address] [place] [address] Dr. Power Covarrubias RBC 4.36 106/ul Critically low 4.70-6.10 [facility] Comment on above: Performed By: #### D ATCBC #### [facility] [address] [place] [address] Dr. Power Covarrubias WBC 4.6 103/ul Normal 4.0-11.0 [facility] Comment on above: Performed By: #### D ATCBC #### [facility] [address] [place] [address] Dr. Power Covarrubias BRE - LIPID PROFILEon 2022 CHOL-HDL RATIO NORM SEE BELOW Normal [facility] Comment on above: Result Comment: 3.3 - 4.4 LOW RISK 4.4 - 7.1 AVERAGE RISK 7.1 - 11.0 MODERATE RISK >11.0 HIGH RISK Performed By: #### D ATLIPI, DATPSA, DATBMP #### [facility] [address] [place] [address] Dr. Power Covarrubias Cholesterol.total/Ch olesterol in HDL [Mass ratio] 2.2 {ratio} Normal [facility] Comment on above: Performed By: #### D ATLIPI, DATPSA, DATBMP #### [facility] [address] [place] [address] Dr. Power Covarrubias BRE- BMP WITH LIPIDon 2022 Anion gap [Moles/Vol] 12.8 mmol/L Normal [facility] Comment on above: Performed By: #### D ATLIPI, DATPSA, DATBMP #### [facility] [address] [place] [address] Dr. Power Covarrubias Calcium [Mass/Vol] 9.3 mg/dL Normal 8.5-10.1 [facility] Comment on above: Performed By: #### D ATLIPI, DATPSA, DATBMP #### [facility] [address] [place] [address] Dr. Power Covarrubias Chloride [Moles/Vol] 107 mmol/L Normal 98-107 [facility] Comment on above: Performed By: #### D ATLIPI, DATPSA, DATBMP #### [facility] [address] [place] [address] Dr. Power Covarrubias Cholesterol [Mass/Vol] 123 mg/dL Normal <=200 [facility] Comment on above: Performed By: #### D ATLIPI, DATPSA, DATBMP #### [facility] [address] [place] [address] Dr. Power Covarrubias Cholesterol in HDL [Mass/Vol] 56 mg/dL Normal 40-60 [facility] Comment on above: Performed By: #### D ATLIPI, DATPSA, DATBMP #### [facility] [address] [place] [address] Dr. Power Covarrubias Cholesterol in LDL [Mass/Vol] 52.0 mg/dL Normal [facility] Comment on above: Performed By: #### D ATLIPI, DATPSA, DATBMP #### [facility] [address] [place] [address] Dr. Power Covarrubias CO2 [Moles/Vol] 28.7 mmol/L Normal 21.0-32.0 [facility] Comment on above: Performed By: #### D ATLIPI, DATPSA, DATBMP #### [facility] [address] [place] [address] Dr. Power Covarrubias Creatinine [Mass/Vol] 0.93 mg/dL Normal 0.70-1.30 [facility] Comment on above: Performed By: #### D ATLIPI, DATPSA, DATBMP #### [facility] [address] [place] [address] Dr. Power Covarrubias EGFR-AF BENINESE >60 Normal >=60 [facility] Comment on above: Performed By: #### D ATLIPI, DATPSA, DATBMP #### [facility] [address] [place] [address] Dr. Power Covarrubias EGFR-NON AF BENINESE >60 Normal >=60 [facility] Comment on above: Performed By: #### D ATLIPI, DATPSA, DATBMP #### [facility] [address] [place] [address] Dr. Power Covarrubias Glucose [Mass/Vol] 97 mg/dL Normal 74-106 [facility] Comment on above: Performed By: #### D ATLIPI, DATPSA, DATBMP #### [facility] [address] [place] [address] Dr. Power Covarrubias HDL NORMAL > or = 60 mg/dl - LO W CARDIOVASCULAR RISK <40 mg/dl - HIGH CARDIOVASCULAR RISK Normal [facility] Comment on above: Performed By: #### D ATLIPI, DATPSA, DATBMP #### [facility] [address] [place] [address] Dr. Power Covarrubias LDL CALC NORMAL SEE BELOW Normal [facility] Comment on above: Result Comment: <100 mg/dl OPTIMAL 100 - 129 mg/dl NEAR OR ABOVE OPTIMAL 130 - 159 mg/dl BORDERLINE HIGH 160 - 189 mg/dl HIGH >190 mg/dl VERY HIGH Performed By: #### D ATLIPI, DATPSA, DATBMP #### [facility] [address] [place] [address] Dr. Power Covarrubias Potassium [Moles/Vol] 3.5 mmol/L Normal 3.5-5.1 [facility] Comment on above: Performed By: #### D ATLIPI, DATPSA, DATBMP #### [facility] [address] [address] [address] Power Covarrubias Sodium [Moles/Vol] 145 mmol/L Normal 136-145 [facility] Comment on above: Performed By: #### D ATLIPI, DATPSA, DATBMP #### [facility] [address] [place] [address] Dr. Power Covarrubias Triglyceride [Mass/Vol] 75 mg/dL Normal <=150 [facility] Comment on above: Performed By: #### D ATLIPI, DATPSA, DATBMP #### [facility] [address] [place] [address] Dr. Power Covarrubias Urea nitrogen [Mass/Vol] 11.0 mg/dL Normal 7.0-18.0 [facility] Comment on above: Performed By: #### D ATLIPI, DATPSA, DATBMP #### [facility] [address] [place] [address] Dr. Power Covarrubias Urea nitrogen/Creatinine [Mass ratio] 11.8 mg/mg Normal [facility] Comment on above: Performed By: #### D ATLIPI, DATPSA, DATBMP #### [facility] [address] [address] [address] Power Covarrubias VLDL CALC 15.0 mg/dL Normal [facility] Comment on above: Performed By: #### D ATLIPI, DATPSA, DATBMP #### [facility] [address] [address] [address] Power Covarrubias GLYCOHEMOGLOBIN A1Con 2022 ADA RECOMMENDATION SEE BELOW Normal [facility] Comment on above: Result Comment: ADA RECOMMENDED LIMIT 4.0 - 6.0 ADA THERAPEUTIC TARGET < 7.0 ACTION SUGGESTED > 7.0 Performed By: #### D ATLIPI, DATPSA, DATBMP #### [facility] [address] [address] [address] Power Covarrubias Glucose [Mass/Vol] 105 mg/dL Normal [facility] Comment on above: Performed By: #### D ATLIPI, DATPSA, DATBMP #### [facility] [address] [address] [address] Power Covarrubias HbA1c (Bld) [Mass fraction] 5.3 % Normal 4.5-6.2 [facility] Comment on above: Performed By: #### D ATLIPI, DATPSA, DATBMP #### [facility] [address] [place] [address] Dr. Power Covarrubias CBC AUTO DIFFon 12-10-2022 BASO # 0.0 103/ul Normal 0.0-0.1 [facility] Comment on above: Performed By: #### D ATLIPI, DATPSA, DATBMP #### [facility] [address] [place] [address] Dr. Power Covarrubias Basophils/100 WBC (Bld) 0.4 % Normal 0.2-2.0 [facility] Comment on above: Performed By: #### D ATLIPI, DATPSA, DATBMP #### [facility] [address] [place] [address] Dr. Power Covarrubias EO # 0.2 103/ul Normal 0.0-0.7 [facility] Comment on above: Performed By: #### D ATLIPI, DATPSA, DATBMP #### [facility] [address] [place] [address] Dr. Power Covarrubias Eosinophils/100 WBC (Bld) 3.6 % Normal 0.9-7.0 [facility] Comment on above: Performed By: #### D ATLIPI, DATPSA, DATBMP #### [facility] [address] [place] [address] Dr. Power Covarrubias Erythrocyte distribution width (RBC) [Ratio] 13.5 % Normal 11.0-15.0 [facility] Comment on above: Performed By: #### D ATLIPI, DATPSA, DATBMP #### [facility] [address] [place] [address] Dr. Power Covarrubias Hematocrit (Bld) [Volume fraction] 37.5 % Critically low 42.0-54.0 [facility] Comment on above: Performed By: #### D ATLIPI, DATPSA, DATBMP #### [facility] [address] [place] [address] Dr. Power Covarrubias Hemoglobin (Bld) [Mass/Vol] 12.0 g/dL Critically low 14.0-18.0 [facility] Comment on above: Performed By: #### D ATLIPI, DATPSA, DATBMP #### [facility] [address] [place] [address] Dr. Power Covarrubias IG # 0.02 10e3/ul Normal 0.00-0.03 [facility] Comment on above: Performed By: #### D ATLIPI, DATPSA, DATBMP #### [facility] [address] [place] [address] Dr. Power Covarrubias IG % 0.4 % Normal 0.0-0.5 [facility] Comment on above: Performed By: #### D ATLIPI, DATPSA, DATBMP #### [facility] [address] [place] [address] Dr. Power Covarrubias LYMPH # 0.9 103/ul Critically low 1.2-3.8 [facility] Comment on above: Performed By: #### D ATLIPI, DATPSA, DATBMP #### [facility] [address] [place] [address] Dr. Power Covarrubias Lymphocytes/100 WBC (Bld) 17.7 % Critically low 20.5-60.0 [facility] Comment on above: Performed By: #### D ATLIPI, DATPSA, DATBMP #### [facility] [address] [place] [address] Dr. Power Covarrubias MANUAL DIFF REQ NO Normal [facility] Comment on above: Performed By: #### D ATLIPI, DATPSA, DATBMP #### [facility] [address] [place] [address] Dr. Power Covarrubias MCH (RBC) [Entitic mass] 29.7 pg Normal 25.9-34.0 [facility] Comment on above: Performed By: #### D ATLIPI, DATPSA, DATBMP #### [facility] [address] [place] [address] Dr. Power Covarrubias MCHC (RBC) [Mass/Vol] 32.0 g/dL Normal 29.9-35.2 [facility] Comment on above: Performed By: #### D ATLIPI, DATPSA, DATBMP #### [facility] [address] [place] [address] Dr. Power Covarrubias MCV (RBC) [Entitic vol] 92.8 fL Normal 80.0-94.0 [facility] Comment on above: Performed By: #### D ATLIPI, DATPSA, DATBMP #### [facility] [address] [place] [address] Dr. Power Covarrubias MONO # 0.6 103/ul Normal 0.3-0.8 [facility] Comment on above: Performed By: #### D ATLIPI, DATPSA, DATBMP #### [facility] [address] [place] [address] Dr. Power Covarrubias Monocytes/100 WBC (Bld) 11.1 % Normal 1.7-12.0 [facility] Comment on above: Performed By: #### D ATLIPI, DATPSA, DATBMP #### [facility] [address] [address] [address] Power Covarrubias NEUT # 3.6 103/ul Normal 1.4-6.5 [facility] Comment on above: Performed By: #### D ATLIPI, DATPSA, DATBMP #### [facility] [address] [address] [address] Power Covarrubias Neutrophils/100 WBC (Bld) 66.8 % Normal 43.0-75.0 [facility] Comment on above: Performed By: #### D ATLIPI, DATPSA, DATBMP #### [facility] [address] [place] [address] Dr. Power Covarrubias Platelet mean volume (Bld) [Entitic vol] 9.8 fL Normal 9.5-13.5 [facility] Comment on above: Performed By: #### D ATLIPI, DATPSA, DATBMP #### [facility] [address] [place] [address] Dr. Power Covarrubias PLT 199 103/ul Normal 150-450 [facility] Comment on above: Performed By: #### D ATLIPI, DATPSA, DATBMP #### [facility] [address] [place] [address] Dr. Power Covarrubias RBC 4.04 106/ul Critically low 4.70-6.10 [facility] Comment on above: Performed By: #### D ATLIPI, DATPSA, DATBMP #### [facility] [address] [place] [address] Dr. Power Covarrubias WBC 5.3 103/ul Normal 4.0-11.0 [facility] Comment on above: Performed By: #### D ATLIPI, DATPSA, DATBMP #### [facility] [address] [place] [address] Dr. Power Covarrubias PROF 14(COMP METB)on 023 Albumin [Mass/Vol] 3.3 g/dL Critically low 3.4-5.0 [facility] Comment on above: Performed By: #### C MP #### [facility] [address] [place] [address] Dr. Power Covarrubias Albumin/Globulin [Mass ratio] 0.9 {ratio} Normal [facility] Comment on above: Performed By: #### C MP #### [facility] [address] [place] [address] Dr. Power Covarrubias ALP [Catalytic activity/Vol] 99 U/L Normal 46-116 [facility] Comment on above: Performed By: #### C MP #### [facility] [address] [place] [address] Dr. Power Covarrubias ALT [Catalytic activity/Vol] 17 U/L Normal 16-63 [facility] Comment on above: Performed By: #### C MP #### [facility] [address] [place] [address] Dr. Power Covarrubias Anion gap [Moles/Vol] 11.6 mmol/L Normal [facility] Comment on above: Performed By: #### C MP #### [facility] [address] [place] [address] Dr. Power Covarrubias AST [Catalytic activity/Vol] 15 U/L Normal 15-37 [facility] Comment on above: Performed By: #### C MP #### [facility] [address] [place] [address] Dr. Power Covarrubias Bilirubin [Mass/Vol] 0.6 mg/dL Normal 0.2-1.0 [facility] Comment on above: Performed By: #### C MP #### [facility] [address] [place] [address] Dr. Power Covarrubias Calcium [Mass/Vol] 9.4 mg/dL Normal 8.5-10.1 [facility] Comment on above: Performed By: #### C MP #### [facility] [address] [place] [address] Dr. Power Covarrubias Chloride [Moles/Vol] 107 mmol/L Normal 98-107 [facility] Comment on above: Performed By: #### C MP #### [facility] [address] [address] [address] Power Covarrubias CO2 [Moles/Vol] 29.2 mmol/L Normal 21.0-32.0 [facility] Comment on above: Performed By: #### C MP #### [facility] [address] [address] [address] Power Covarrubias Creatinine [Mass/Vol] 0.87 mg/dL Normal 0.70-1.30 [facility] Comment on above: Performed By: #### C MP #### [facility] [address] [address] [address] oPwer Covarrubias EGFR-AF BENINESE >60 Normal >=60 [facility] Comment on above: Performed By: #### C MP #### [facility] [address] [address] [address] Power Covarrubias EGFR-NON AF BENINESE >60 Normal >=60 [facility] Comment on above: Performed By: #### C MP #### [facility] [address] [address] [address] Power Covarrubias Globulin (S) [Mass/Vol] 3.6 g/dL Normal [facility] Comment on above: Performed By: #### C MP #### [facility] [address] [address] [address] Power Covarrubias Glucose [Mass/Vol] 107 mg/dL Critically high 74-106 [facility] Comment on above: Performed By: #### C MP #### [facility] [address] [address] [address] Power Covarrubias Potassium [Moles/Vol] 3.8 mmol/L Normal 3.5-5.1 [facility] Comment on above: Performed By: #### C MP #### [facility] [address] [address] [address] Power Covarrubias Protein [Mass/Vol] 6.9 g/dL Normal 6.4-8.2 [facility] Comment on above: Performed By: #### C MP #### [facility] [address] [place] [address] Dr. Power Covarrubias Sodium [Moles/Vol] 144 mmol/L Normal 136-145 [facility] Comment on above: Performed By: #### C MP #### [facility] [address] [place] [address] Dr. Power Covarrubias Urea nitrogen [Mass/Vol] 12.0 mg/dL Normal 7.0-18.0 [facility] Comment on above: Performed By: #### C MP #### [facility] [address] [place] [address] Dr. Power Covarrubias Urea nitrogen/Creatinine [Mass ratio] 13.8 mg/mg Normal [facility] Comment on above: Performed By: #### C MP #### [facility] [address] [place] [address] Dr. Power Covarrubias CBC AUTO DIFFon 08-31-2022 BASO # 0.0 103/ul Normal 0.0-0.1 [facility] Comment on above: Performed By: #### D ATLIPI, DATPSA, DATBMP #### [facility] [address] [place] [address] Dr. Power Covarrubias Basophils/100 WBC (Bld) 0.7 % Normal 0.2-2.0 [facility] Comment on above: Performed By: #### D ATLIPI, DATPSA, DATBMP #### [facility] [address] [place] [address] Dr. Power Covarrubias EO # 0.2 103/ul Normal 0.0-0.7 [facility] Comment on above: Performed By: #### D ATLIPI, DATPSA, DATBMP #### [facility] [address] [place] [address] Dr. Power Covarrubias Eosinophils/100 WBC (Bld) 3.5 % Normal 0.9-7.0 [facility] Comment on above: Performed By: #### D ATLIPI, DATPSA, DATBMP #### [facility] [address] [place] [address] Dr. Power Covarrubias Erythrocyte distribution width (RBC) [Ratio] 13.2 % Normal 11.0-15.0 [facility] Comment on above: Performed By: #### D ATLIPI, DATPSA, DATBMP #### [facility] [address] [place] [address] Dr. Power Covarrubias Hematocrit (Bld) [Volume fraction] 39.3 % Critically low 42.0-54.0 [facility] Comment on above: Performed By: #### D ATLIPI, DATPSA, DATBMP #### [facility] [address] [place] [address] Dr. Power Covarrubias Hemoglobin (Bld) [Mass/Vol] 12.9 g/dL Critically low 14.0-18.0 [facility] Comment on above: Performed By: #### D ATLIPI, DATPSA, DATBMP #### [facility] [address] [place] [address] Dr. Power Covarrubias IG # 0.02 10e3/ul Normal 0.00-0.03 [facility] Comment on above: Performed By: #### D ATLIPI, DATPSA, DATBMP #### [facility] [address] [place] [address] Dr. Power Covarrubias IG % 0.4 % Normal 0.0-0.5 [facility] Comment on above: Performed By: #### D ATLIPI, DATPSA, DATBMP #### [facility] [address] [place] [address] Dr. Power Covarrubias LYMPH # 0.9 103/ul Critically low 1.2-3.8 [facility] Comment on above: Performed By: #### D ATLIPI, DATPSA, DATBMP #### [facility] [address] [place] [address] Dr. Power Covarrubias Lymphocytes/100 WBC (Bld) 16.4 % Critically low 20.5-60.0 [facility] Comment on above: Performed By: #### D ATLIPI, DATPSA, DATBMP #### [facility] [address] [place] [address] Dr. Power Covarrubias MCH (RBC) [Entitic mass] 30.7 pg Normal 25.9-34.0 [facility] Comment on above: Performed By: #### D ATLIPI, DATPSA, DATBMP #### [facility] [address] [place] [address] Dr. Power Covarrubias MCHC (RBC) [Mass/Vol] 32.8 g/dL Normal 29.9-35.2 [facility] Comment on above: Performed By: #### D ATLIPI, DATPSA, DATBMP #### [facility] [address] [place] [address] Dr. Power Covarrubias MCV (RBC) [Entitic vol] 93.6 fL Normal 80.0-94.0 [facility] Comment on above: Performed By: #### D ATLIPI, DATPSA, DATBMP #### [facility] [address] [place] [address] Dr. Power Covarrubias MONO # 0.5 103/ul Normal 0.3-0.8 [facility] Comment on above: Performed By: #### D ATLIPI, DATPSA, DATBMP #### [facility] [address] [place] [address] Dr. Power Covarrubias Monocytes/100 WBC (Bld) 9.0 % Normal 1.7-12.0 [facility] Comment on above: Performed By: #### D ATLIPI, DATPSA, DATBMP #### [facility] [address] [place] [address] Dr. Power Covarrubias NEUT # 3.8 103/ul Normal 1.4-6.5 [facility] Comment on above: Performed By: #### D ATLIPI, DATPSA, DATBMP #### [facility] [address] [place] [address] Dr. Power Covarrubias Neutrophils/100 WBC (Bld) 70.0 % Normal 43.0-75.0 [facility] Comment on above: Performed By: #### D ATLIPI, DATPSA, DATBMP #### [facility] [address] [place] [address] Dr. Power Covarrubias Platelet mean volume (Bld) [Entitic vol] 9.9 fL Normal 9.5-13.5 [facility] Comment on above: Performed By: #### D ATLIPI, DATPSA, DATBMP #### [facility] [address] [address] [address] Power Covarrubias PLT 195 103/ul Normal 150-450 [facility] Comment on above: Performed By: #### D ATLIPI, DATPSA, DATBMP #### [facility] [address] [address] [address] Power Covarrubias RBC 4.20 106/ul Critically low 4.70-6.10 [facility] Comment on above: Performed By: #### D ATLIPI, DATPSA, DATBMP #### [facility] [address] [place] [address] Dr. Power Covarrubias WBC 5.4 103/ul Normal 4.0-11.0 [facility] Comment on above: Performed By: #### D ATLIPI, DATPSA, DATBMP #### [facility] [address] [place] [address] Dr. Power Covarrubias BRE- BMP WITH LIPIDon 2021 Anion gap [Moles/Vol] 10.8 mmol/L Normal [facility] Comment on above: Performed By: #### D ATLIPI, DATPSA, DATBMP #### [facility] [address] [address] [address] Power Covarrubias Calcium [Mass/Vol] 9.3 mg/dL Normal 8.5-10.1 [facility] Comment on above: Performed By: #### D ATLIPI, DATPSA, DATBMP #### [facility] [address] [place] [address] Dr. Power Covarrubias Chloride [Moles/Vol] 105 mmol/L Normal 98-107 [facility] Comment on above: Performed By: #### D ATLIPI, DATPSA, DATBMP #### [facility] [address] [place] [address] Dr. Power Covarrubias Cholesterol [Mass/Vol] 123 mg/dL Normal <=200 [facility] Comment on above: Performed By: #### D ATLIPI, DATPSA, DATBMP #### [facility] [address] [address] [address] Power Covarrubias Cholesterol in HDL [Mass/Vol] 51 mg/dL Normal 40-60 [facility] Comment on above: Performed By: #### D ATLIPI, DATPSA, DATBMP #### [facility] [address] [address] [address] Power Covarrubias Cholesterol in LDL [Mass/Vol] 56.0 mg/dL Normal [facility] Comment on above: Performed By: #### D ATLIPI, DATPSA, DATBMP #### [facility] [address] [address] [address] Power Covarrubias CO2 [Moles/Vol] 28.2 mmol/L Normal 21.0-32.0 [facility] Comment on above: Performed By: #### D ATLIPI, DATPSA, DATBMP #### [facility] [address] [address] [address] Power Covarrubias Creatinine [Mass/Vol] 0.86 mg/dL Normal 0.70-1.30 [facility] Comment on above: Performed By: #### D ATLIPI, DATPSA, DATBMP #### [facility] [address] [address] [address] Power Covarrubias EGFR-AF BENINESE >60 Normal >=60 [facility] Comment on above: Performed By: #### D ATLIPI, DATPSA, DATBMP #### [facility] [address] [address] [address] Power Covarrubias EGFR-NON AF BENINESE >60 Normal >=60 [facility] Comment on above: Performed By: #### D ATLIPI, DATPSA, DATBMP #### [facility] [address] [address] [address] Power Covrarubias Glucose [Mass/Vol] 90 mg/dL Normal 74-106 [facility] Comment on above: Performed By: #### D ATLIPI, DATPSA, DATBMP #### [facility] [address] [address] [address] Power Covarrubias HDL NORMAL > or = 60 mg/dl - LO W CARDIOVASCULAR RISK <40 mg/dl - HIGH CARDIOVASCULAR RISK Normal [facility] Comment on above: Performed By: #### D ATLIPI, DATPSA, DATBMP #### [facility] [address] [address] [address] Power Covarrubias LDL CALC NORMAL SEE BELOW Normal [facility] Comment on above: Result Comment: <100 mg/dl OPTIMAL 100 - 129 mg/dl NEAR OR ABOVE OPTIMAL 130 - 159 mg/dl BORDERLINE HIGH 160 - 189 mg/dl HIGH >190 mg/dl VERY HIGH Performed By: #### D ATLIPI, DATPSA, DATBMP #### [facility] [address] [address] [address] Power Covarrubias Potassium [Moles/Vol] 4.0 mmol/L Normal 3.5-5.1 [facility] Comment on above: Performed By: #### D ATLIPI, DATPSA, DATBMP #### [facility] [address] [address] [address] Power Covarrubias Sodium [Moles/Vol] 140 mmol/L Normal 136-145 [facility] Comment on above: Performed By: #### D ATLIPI, DATPSA, DATBMP #### [facility] [address] [address] [address] Power Covarrubias Triglyceride [Mass/Vol] 80 mg/dL Normal <=150 [facility] Comment on above: Performed By: #### D ATLIPI, DATPSA, DATBMP #### [facility] [address] [address] [address] Power Covarrubias Urea nitrogen [Mass/Vol] 14.0 mg/dL Normal 7.0-18.0 [facility] Comment on above: Performed By: #### D ATLIPI, DATPSA, DATBMP #### [facility] [address] [place] [address] Dr. Power Covarrubias Urea nitrogen/Creatinine [Mass ratio] 16.3 mg/mg Normal [facility] Comment on above: Performed By: #### D ATLIPI, DATPSA, DATBMP #### [facility] [address] [place] [address] Dr. Power Covarrubias VLDL CALC 16.0 mg/dL Normal [facility] Comment on above: Performed By: #### D ATLIPI, DATPSA, DATBMP #### [facility] [address] [place] [address] Dr. Power Covarrubias OCC BLD IMMUNO SCREENon 06-16 OCCULT BLOOD Negative Normal NEGATIVE [facility] Comment on above: Performed By: #### O BSCRN #### [facility] [address] [place] [address] Dr. Power Covarrubias T4 [facility]on 06-30-2022 T4 [Mass/Vol] 9.2 ug/dL Normal 4.5-12.0 [facility] Comment on above: Performed By: #### D ATLIPI, DATPSA, DATBMP #### [facility] [address] [place] [address] Dr. Power Covarrubias CBC AUTO DIFFon 06-29-2022 BASO # 0.0 103/ul Normal 0.0-0.1 [facility] Comment on above: Performed By: #### D ATLIPI, DATPSA, DATBMP #### [facility] [address] [place] [address] Dr. Power Covarrubias Basophils/100 WBC (Bld) 0.5 % Normal 0.2-2.0 [facility] Comment on above: Performed By: #### D ATLIPI, DATPSA, DATBMP #### [facility] [address] [place] [address] Dr. Power Covarrubias EO # 0.1 103/ul Normal 0.0-0.7 [facility] Comment on above: Performed By: #### D ATLIPI, DATPSA, DATBMP #### [facility] [address] [address] [address] Power Covarrubias Eosinophils/100 WBC (Bld) 2.5 % Normal 0.9-7.0 [facility] Comment on above: Performed By: #### D ATLIPI, DATPSA, DATBMP #### [facility] [address] [place] [address] Dr. Power Covarrubias Erythrocyte distribution width (RBC) [Ratio] 13.4 % Normal 11.0-15.0 [facility] Comment on above: Performed By: #### D ATLIPI, DATPSA, DATBMP #### [facility] [address] [place] [address] Dr. Power Covarrubias Hematocrit (Bld) [Volume fraction] 38.1 % Critically low 42.0-54.0 [facility] Comment on above: Performed By: #### D ATLIPI DATPSA, DATBMP #### [facility] [address] [place] [address] Dr. Power Covarrubias Hemoglobin (Bld) [Mass/Vol] 12.0 g/dL Critically low 14.0-18.0 [facility] Comment on above: Performed By: #### D ATLIPI DATPSA, DATBMP #### [facility] [address] [place] [address] Dr. Power Covarrubias IG # 0.01 10e3/ul Normal 0.00-0.03 [facility] Comment on above: Performed By: #### D ATLIPI DATPSA, DATBMP #### [facility] [address] [place] [address] Dr. Power Covarrubias IG % 0.2 % Normal 0.0-0.5 [facility] Comment on above: Performed By: #### D ATLIPI, DATPSA, DATBMP #### [facility] [address] [place] [address] Dr. Power Covarrubias LYMPH # 0.9 103/ul Critically low 1.2-3.8 [facility] Comment on above: Performed By: #### D ATLIPI, DATPSA, DATBMP #### [facility] [address] [place] [address] Dr. Power Covarrubias Lymphocytes/100 WBC (Bld) 15.5 % Critically low 20.5-60.0 [facility] Comment on above: Performed By: #### D ATLIPI, DATPSA, DATBMP #### [facility] [address] [place] [address] Dr. Power Covarrubias MANUAL DIFF REQ NO Normal [facility] Comment on above: Performed By: #### D ATLIPI, DATPSA, DATBMP #### [facility] [address] [place] [address] Dr. Power Covarrubias MCH (RBC) [Entitic mass] 30.2 pg Normal 25.9-34.0 [facility] Comment on above: Performed By: #### D ATLIPI, DATPSA, DATBMP #### [facility] [address] [place] [address] Dr. Power Covarrubias MCHC (RBC) [Mass/Vol] 31.5 g/dL Normal 29.9-35.2 [facility] Comment on above: Performed By: #### D ATLIPI, DATPSA, DATBMP #### [facility] [address] [place] [address] Dr. Power Covarrubias MCV (RBC) [Entitic vol] 96.0 fL Critically high 80.0-94.0 [facility] Comment on above: Performed By: #### D ATLIPI, DATPSA, DATBMP #### [facility] [address] [place] [address] Dr. Power Covarrubias MONO # 0.5 103/ul Normal 0.3-0.8 [facility] Comment on above: Performed By: #### D ATLIPI, DATPSA, DATBMP #### [facility] [address] [place] [address] Dr. Power Covarrubias Monocytes/100 WBC (Bld) 9.5 % Normal 1.7-12.0 [facility] Comment on above: Performed By: #### D ATLIPI, DATPSA, DATBMP #### [facility] [address] [address] [address] Power Covarrubias NEUT # 4.1 103/ul Normal 1.4-6.5 [facility] Comment on above: Performed By: #### D ATLIPI, DATPSA, DATBMP #### [facility] [address] [address] [address] Power Covarrubias Neutrophils/100 WBC (Bld) 71.8 % Normal 43.0-75.0 [facility] Comment on above: Performed By: #### D ATLIPI, DATPSA, DATBMP #### [facility] [address] [address] [address] Power Covarrubias Platelet mean volume (Bld) [Entitic vol] 9.8 fL Normal 9.5-13.5 [facility] Comment on above: Performed By: #### D ATLIPI, DATPSA, DATBMP #### [facility] [address] [place] [address] Dr. Power Covarrubias PLT 212 103/ul Normal 150-450 [facility] Comment on above: Performed By: #### D ATLIPI, DATPSA, DATBMP #### [facility] [address] [place] [address] Dr. Power Covarrubias RBC 3.97 106/ul Critically low 4.70-6.10 [facility] Comment on above: Performed By: #### D ATLIPI, DATPSA, DATBMP #### [facility] [address] [address] [address] Power Covarrubias WBC 5.7 103/ul Normal 4.0-11.0 [facility] Comment on above: Performed By: #### D ATLIPI, DATPSA, DATBMP #### [facility] [address] [place] [address] Dr. Power Covarrubias FREE T3on 06-29-2022 FREE T3 2.73 pg/mlL Normal 2.18-3.98 [facility] Comment on above: Performed By: #### D ATLIPI, DATPSA, DATBMP #### [facility] [address] [address] [address] Power Covarrubias GLYCOHEMOGLOBIN A1Con 2021 ADA RECOMMENDATION SEE BELOW Normal [facility] Comment on above: Result Comment: ADA RECOMMENDED LIMIT 4.0 - 6.0 ADA THERAPEUTIC TARGET < 7.0 ACTION SUGGESTED > 7.0 Performed By: #### A 1C #### [facility] [address] [address] [address] Power Covarrubias Glucose [Mass/Vol] 114 mg/dL Normal [facility] Comment on above: Performed By: #### A 1C #### [facility] [address] [place] [address] Dr. Power Covarrubias HbA1c (Bld) [Mass fraction] 5.6 % Normal 4.5-6.2 [facility] Comment on above: Performed By: #### A 1C #### [facility] [address] [place] [address] Dr. Power Covarrubias LIPID PROFILEon 06-29-2022 CHOL-HDL RATIO NORM SEE BELOW Normal [facility] Comment on above: Result Comment: 3.3 - 4.4 LOW RISK 4.4 - 7.1 AVERAGE RISK 7.1 - 11.0 MODERATE RISK >11.0 HIGH RISK Performed By: #### D ATLMACK DATPSA, DATBMP #### [facility] [address] [place] [address] Dr. Power Covarrubias Cholesterol [Mass/Vol] 110 mg/dL Normal <=200 [facility] Comment on above: Performed By: #### D ATLIPI DATPSA, DATBMP #### [facility] [address] [place] [address] Dr. Power Covarrubias Cholesterol in HDL [Mass/Vol] 47 mg/dL Normal 40-60 [facility] Comment on above: Performed By: #### D ATLIPI DATPSA, DATBMP #### [facility] [address] [place] [address] Dr. Power Covarrubias Cholesterol in LDL [Mass/Vol] 51.2 mg/dL Normal [facility] Comment on above: Performed By: #### D ATLIPI, DATPSA, DATBMP #### [facility] [address] [address] [address] Power Covarrubias Cholesterol.total/Ch olesterol in HDL [Mass ratio] 2.3 {ratio} Normal [facility] Comment on above: Performed By: #### D ATLIPI, DATPSA, DATBMP #### [facility] [address] [address] [address] Power Covarrubias HDL NORMAL > or = 60 mg/dl - LO W CARDIOVASCULAR RISK <40 mg/dl - HIGH CARDIOVASCULAR RISK Normal [facility] Comment on above: Performed By: #### D ATLIPI, DATPSA, DATBMP #### [facility] [address] [address] [address] Power Covarrubias LDL CALC NORMAL SEE BELOW Normal [facility] Comment on above: Result Comment: <100 mg/dl OPTIMAL 100 - 129 mg/dl NEAR OR ABOVE OPTIMAL 130 - 159 mg/dl BORDERLINE HIGH 160 - 189 mg/dl HIGH >190 mg/dl VERY HIGH Performed By: #### D ATLIPI, DATPSA, DATBMP #### [facility] [address] [address] [address] Power Covarrubias Triglyceride [Mass/Vol] 59 mg/dL Normal <=150 [facility] Comment on above: Performed By: #### D ATLIPI, DATPSA, DATBMP #### [facility] [address] [address] [address] Power Covarrubias VLDL CALC 11.8 mg/dL Normal [facility] Comment on above: Performed By: #### D ATLIPI, DATPSA, DATBMP #### [facility] [address] [address] [address] Power Covarrubias PROF 14(COMP METB)on 022 Albumin [Mass/Vol] 3.3 g/dL Critically low 3.4-5.0 Th [facility] Comment on above: Performed By: #### D ATLIPI, DATPSA, DATBMP #### [facility] [address] [address] [address] Power Covarrubias Albumin/Globulin [Mass ratio] 0.9 {ratio} Normal [facility] Comment on above: Performed By: #### D ATLIPI, DATPSA, DATBMP #### [facility] [address] [place] [address] Dr. Power Covarrubias ALP [Catalytic activity/Vol] 100 U/L Normal 46-116 [facility] Comment on above: Performed By: #### D ATLIPI, DATPSA, DATBMP #### [facility] [address] [place] [address] Dr. Power Covarrubias ALT [Catalytic activity/Vol] 16 U/L Normal 16-63 [facility] Comment on above: Performed By: #### D ATLIPI, DATPSA, DATBMP #### [facility] [address] [place] [address] Dr. Power Covarrubias Anion gap [Moles/Vol] 11.4 mmol/L Normal [facility] Comment on above: Performed By: #### D ATLIPI, DATPSA, DATBMP #### [facility] [address] [place] [address] Dr. Power Covarrubias AST [Catalytic activity/Vol] 14 U/L Critically low 15-37 [facility] Comment on above: Performed By: #### D ATLIPI, DATPSA, DATBMP #### [facility] [address] [place] [address] Dr. Power Covarrubias Bilirubin [Mass/Vol] 0.7 mg/dL Normal 0.2-1.0 [facility] Comment on above: Performed By: #### D ATLIPI, DATPSA, DATBMP #### [facility] [address] [place] [address] Dr. Power Covarrubias Calcium [Mass/Vol] 9.0 mg/dL Normal 8.5-10.1 [facility] Comment on above: Performed By: #### D ATLIPI, DATPSA, DATBMP #### [facility] [address] [place] [address] Dr. Power Covarrubias Chloride [Moles/Vol] 107 mmol/L Normal 98-107 [facility] Comment on above: Performed By: #### D ATLIPI, DATPSA, DATBMP #### [facility] [address] [address] [address] Power Covarrubias CO2 [Moles/Vol] 28.5 mmol/L Normal 21.0-32.0 [facility] Comment on above: Performed By: #### D ATLIPI, DATPSA, DATBMP #### [facility] [address] [place] [address] Dr. Power Covarrubias Creatinine [Mass/Vol] 0.87 mg/dL Normal 0.70-1.30 [facility] Comment on above: Performed By: #### D ATLIPI, DATPSA, DATBMP #### [facility] [address] [place] [address] Dr. Power Covarrubias EGFR-AF BENINESE >60 Normal >=60 [facility] Comment on above: Performed By: #### D ATLIPI, DATPSA, DATBMP #### [facility] [address] [place] [address] Dr. Power Covarrubias EGFR-NON AF BENINESE >60 Normal >=60 [facility] Comment on above: Performed By: #### D ATLIPI, DATPSA, DATBMP #### [facility] [address] [place] [address] Dr. Power Covarrubias Globulin (S) [Mass/Vol] 3.6 g/dL Normal [facility] Comment on above: Performed By: #### D ATLIPI, DATPSA, DATBMP #### [facility] [address] [place] [address] Dr. Power Covarrubias Glucose [Mass/Vol] 90 mg/dL Normal 74-106 [facility] Comment on above: Performed By: #### D ATLIPI, DATPSA, DATBMP #### [facility] [address] [place] [address] Dr. Power Covarrubias Potassium [Moles/Vol] 3.9 mmol/L Normal 3.5-5.1 [facility] Comment on above: Performed By: #### D ATLIPI, DATPSA, DATBMP #### [facility] [address] [place] [address] Dr. Power Covarrubias Protein [Mass/Vol] 6.9 g/dL Normal 6.4-8.2 [facility] Comment on above: Performed By: #### D ATLIPI, DATPSA, DATBMP #### [facility] [address] [place] [address] Dr. Power Covarrubias Sodium [Moles/Vol] 143 mmol/L Normal 136-145 [facility] Comment on above: Performed By: #### D ATLIPI, DATPSA, DATBMP #### [facility] [address] [place] [address] Dr. Power Covarrubias Urea nitrogen [Mass/Vol] 13.0 mg/dL Normal 7.0-18.0 [facility] Comment on above: Performed By: #### D ATLIPI, DATPSA, DATBMP #### [facility] [address] [place] [address] Dr. Power Covarrubias Urea nitrogen/Creatinine [Mass ratio] 14.9 mg/mg Normal [facility] Comment on above: Performed By: #### D ATLIPI, DATPSA, DATBMP #### [facility] [address] [place] [address] Dr. Power Covarrubias TSHon 06-29-2022 TSH 2.585 uIU/mL Normal 0.358-3.740 [facility] Comment on above: Performed By: #### T SH, LIPID, FT3, CMP #### [facility] [address] [place] [address] Dr. Power Covarrubias CBC AUTO DIFFon 04-09-2022 BASO # 0.1 103/ul Normal 0.0-0.1 [facility] Comment on above: Performed By: #### D ATCBC #### [facility] [address] [place] [address] Dr. Power Covarrubias Basophils/100 WBC (Bld) 1.0 % Normal 0.2-2.0 [facility] Comment on above: Performed By: #### D ATCBC #### [facility] [address] [place] [address] Dr. Power Covarrubias EO # 0.2 103/ul Normal 0.0-0.7 [facility] Comment on above: Performed By: #### D ATCBC #### [facility] [address] [place] [address] Dr. Power Covarrubias Eosinophils/100 WBC (Bld) 3.7 % Normal 0.9-7.0 [facility] Comment on above: Performed By: #### D ATCBC #### [facility] [address] [place] [address] Dr. Power Covarrubias Erythrocyte distribution width (RBC) [Ratio] 13.3 % Normal 11.0-15.0 [facility] Comment on above: Performed By: #### D ATCBC #### [facility] [address] [place] [address] Dr. Power Covarrubias Hematocrit (Bld) [Volume fraction] 37.8 % Critically low 42.0-54.0 [facility] Comment on above: Performed By: #### D ATCBC #### [facility] [address] [place] [address] Dr. Power Covarrubias Hemoglobin (Bld) [Mass/Vol] 12.4 g/dL Critically low 14.0-18.0 [facility] Comment on above: Performed By: #### D ATCBC #### [facility] [address] [place] [address] Dr. Power Covarrubias IG # 0.01 10e3/ul Normal 0.00-0.03 [facility] Comment on above: Performed By: #### D ATCBC #### [facility] [address] [place] [address] Dr. Power Covarrubias IG % 0.2 % Normal 0.0-0.5 [facility] Comment on above: Performed By: #### D ATCBC #### [facility] [address] [place] [address] Dr. Power Covarrubias LYMPH # 1.0 103/ul Critically low 1.2-3.8 [facility] Comment on above: Performed By: #### D ATCBC #### [facility] [address] [place] [address] Dr. Power Covarrubias Lymphocytes/100 WBC (Bld) 19.0 % Critically low 20.5-60.0 [facility] Comment on above: Performed By: #### D ATCBC #### [facility] [address] [place] [address] Dr. Power Covarrubias MCH (RBC) [Entitic mass] 30.9 pg Normal 25.9-34.0 [facility] Comment on above: Performed By: #### D ATCBC #### [facility] [address] [place] [address] Dr. Power Covarrubias MCHC (RBC) [Mass/Vol] 32.8 g/dL Normal 29.9-35.2 [facility] Comment on above: Performed By: #### D ATCBC #### [facility] [address] [place] [address] Dr. Power Covarrubias MCV (RBC) [Entitic vol] 94.3 fL Critically high 80.0-94.0 [facility] Comment on above: Performed By: #### D ATCBC #### [facility] [address] [place] [address] Dr. Power Covarrubias MONO # 0.5 103/ul Normal 0.3-0.8 [facility] Comment on above: Performed By: #### D ATCBC #### [facility] [address] [place] [address] Dr. Power Covarrubias Monocytes/100 WBC (Bld) 9.4 % Normal 1.7-12.0 [facility] Comment on above: Performed By: #### D ATCBC #### [facility] [address] [place] [address] Dr. Power Covarrubias NEUT # 3.4 103/ul Normal 1.4-6.5 [facility] Comment on above: Performed By: #### D ATCBC #### [facility] [address] [place] [address] Dr. Power Covarrubias Neutrophils/100 WBC (Bld) 66.7 % Normal 43.0-75.0 [facility] Comment on above: Performed By: #### D ATCBC #### [facility] [address] [place] [address] Dr. Power Covarrubias Platelet mean volume (Bld) [Entitic vol] 9.9 fL Normal 9.5-13.5 [facility] Comment on above: Performed By: #### D ATCBC #### [facility] [address] [place] [address] Dr. Power Covarrubias PLT 205 103/ul Normal 150-450 [facility] Comment on above: Performed By: #### D ATCBC #### [facility] [address] [place] [address] Dr. Power Covarrubias RBC 4.01 106/ul Critically low 4.70-6.10 [facility] Comment on above: Performed By: #### D ATCBC #### [facility] [address] [place] [address] Dr. Power Covarrubias WBC 5.1 103/ul Normal 4.0-11.0 [facility] Comment on above: Performed By: #### D ATCBC #### [facility] [address] [place] [address] Dr. Power Covarrubias BRE- BMP WITH LIPIDon 2021 Anion gap [Moles/Vol] 9.5 mmol/L Normal [facility] Comment on above: Performed By: #### D ATLIPI, DATPSA, DATBMP #### [facility] [address] [place] [address] Dr. Power Covarrubias Calcium [Mass/Vol] 9.0 mg/dL Normal 8.5-10.1 [facility] Comment on above: Performed By: #### D ATLIPI, DATPSA, DATBMP #### [facility] [address] [place] [address] Dr. Power Covarrubias Chloride [Moles/Vol] 108 mmol/L Critically high 98-107 [facility] Comment on above: Performed By: #### D ATLIPI, DATPSA, DATBMP #### [facility] [address] [address] [address] Power Covarrubias Cholesterol [Mass/Vol] 114 mg/dL Normal <=200 [facility] Comment on above: Performed By: #### D ATLIPI, DATPSA, DATBMP #### [facility] [address] [place] [address] Dr. Power Covarrubias Cholesterol in HDL [Mass/Vol] 49 mg/dL Normal 40-60 [facility] Comment on above: Performed By: #### D ATLIPI, DATPSA, DATBMP #### [facility] [address] [place] [address] Dr. Power Covarrubias Cholesterol in LDL [Mass/Vol] 50.4 mg/dL Normal [facility] Comment on above: Performed By: #### D ATLIPI, DATPSA, DATBMP #### [facility] [address] [place] [address] Dr. Power Covarrubias CO2 [Moles/Vol] 28.3 mmol/L Normal 21.0-32.0 [facility] Comment on above: Performed By: #### D ATLIPI, DATPSA, DATBMP #### [facility] [address] [place] [address] Dr. Power Covarrubias Creatinine [Mass/Vol] 0.88 mg/dL Normal 0.70-1.30 [facility] Comment on above: Performed By: #### D ATLIPI, DATPSA, DATBMP #### [facility] [address] [place] [address] Dr. Power Covarrubias EGFR-AF BENINESE >60 Normal >=60 [facility] Comment on above: Performed By: #### D ATLIPI, DATPSA, DATBMP #### [facility] [address] [place] [address] Dr. Power Covarrubias EGFR-NON AF BENINESE >60 Normal >=60 [facility] Comment on above: Performed By: #### D ATLIPI, DATPSA, DATBMP #### [facility] [address] [place] [address] Dr. Power Covarrubias Glucose [Mass/Vol] 107 mg/dL Critically high 74-106 [facility] Comment on above: Performed By: #### D ATLIPI DATPSA, DATBMP #### [facility] [address] [address] [address] Power Covarrubias HDL NORMAL > or = 60 mg/dl - LO W CARDIOVASCULAR RISK <40 mg/dl - HIGH CARDIOVASCULAR RISK Normal [facility] Comment on above: Performed By: #### D ATLIPI DATPSA, DATBMP #### [facility] [address] [address] [address] Power Covarrubias LDL CALC NORMAL SEE BELOW Normal [facility] Comment on above: Result Comment: <100 mg/dl OPTIMAL 100 - 129 mg/dl NEAR OR ABOVE OPTIMAL 130 - 159 mg/dl BORDERLINE HIGH 160 - 189 mg/dl HIGH >190 mg/dl VERY HIGH Performed By: #### D ATLIPI DATPSA, DATBMP #### [facility] [address] [address] [address] Power Covarrubias Potassium [Moles/Vol] 3.8 mmol/L Normal 3.5-5.1 [facility] Comment on above: Performed By: #### D ATLIPI DATPSA, DATBMP #### [facility] [address] [address] [address] Power Covarrubias Sodium [Moles/Vol] 142 mmol/L Normal 136-145 [facility] Comment on above: Performed By: #### D ATLIPI DATPSA, DATBMP #### [facility] [address] [address] [address] Power Covarrubias Triglyceride [Mass/Vol] 73 mg/dL Normal <=150 [facility] Comment on above: Performed By: #### D ATLIPI DATPSA, DATBMP #### [facility] [address] [address] [address] Power Covarrubias Urea nitrogen [Mass/Vol] 12.0 mg/dL Normal 7.0-18.0 [facility] Comment on above: Performed By: #### D CONNIEIPEmeterio DATPSA, DATBMP #### [facility] [address] [place], [place] [address] Dr. Power Covarrubias Urea nitrogen/Creatinine [Mass ratio] 13.6 mg/mg Normal [facility] Comment on above: Performed By: #### D ATLIPI, DATPSA, DATBMP #### [facility] [address] [place], [place] [address] Dr. Power Covarrubias VLDL CALC 14.6 mg/dL Normal [facility] Comment on above: Performed By: #### D ATLIPI, DATPSA, DATBMP #### [facility] [address] [place], [place] [address] Dr. Power Covarrubias Cardiovascular Lab Reporton 07-03-2020 Cardiovascular Lab Report [facility] Patient Name: Oscar Cox [facility] MR #: [id number] Physician: Shiloh Hester, Department of M.D. Medicine Service Date: 07/03/2020 Division of Birthdate: 1945 Cardiology Room #: Adult Cardiovascular Services [address] [address] Cardiovascular Laboratory Report FINAL IMPRESSIONS: 1. Icls-gd-enfdlpid 3-vessel coronary artery disease. 2. Tjdg-hu-dcupajqv left main coronary artery disease that appears [...] Follow up with Dr. Hester in the [facility] in the next 1 to 2 months. [...] to access the left radial artery. A 6-Romansh glide sheath was inserted without difficulty. Resistance [...] P/Shiloh Hester M.D. Date Trans: 07/03/2020 02:42 P/mmo [id number] cc: Neo Gould M.D. [address], [facility] [address] [facility] Vital Signs Date Time Vital Sign Value Performing Clinician Zbigniew stinson 03-28-2023 14:23-0400 Blood Pressure Location Zhang DENISE [facility] [place] 03-28-2023 14:23-0400 Diastolic blood pressure 60 mm[Hg] Zhang DENISE General [facility] 03-28-2023 14:23-0400 Heart rate 60 /min Zhang DENISE [facility] [place] 03-28-2023 14:23-0400 Respiratory rate 16 /min Zhang DENISE General [facility] 03-28-2023 14:23-0400 Systolic blood pressure 116 mm[Hg] Zhang DENISE General [facility] Encounters Encounter Date Encounter Type Care Provider Facility Start: 03-19-2024 End: 03-19-2024 ambulatory [facility] Start: 03-05-2024 End: 03-05-2024 ambulatory [facility] Ambulatory [facility] Start: 02-19-2024 End: 02-19-2024 ambulatory [facility] Start: 12-13-2023 End: 12-13-2023 ambulatory [facility] Start: 11-27-2023 End: 11-27-2023 ambulatory [facility] Start: 09-13-2023 ambulatory Ghislaine Morales Facility:[facility] Start: 06-15-2023 ambulatory Zhang NILL Facility:[facility] [place] Start: 06-01-2023 End: [facility] Start: 05-09-2023 ambulatory Zhang R NILL Facility :[facility] Start: 04-26-2023 End: 04-27-2023 ambulatory Zhang R NILL Facility:CD:[id number] Start: 03-28-2023 End: 03-29-2023 ambulatory Zhang R NILL Facility:[facility] Start: 03-28-2023 End: 03-28-2023 Patient encounter procedure Zhang R APRILL [facility] [place] Start: 03-01-2023 End: 03-02-[address] NONE LISTED REQUEST Facility:[facility] Start: 12-10-2022 End: 12-11-[address] NEO GOULD . Facility:[facility] Start: 08-31-2022 End: 09-01-[address] NONE LISTED REQUEST Facility:[facility] Start: 06-29-2022 End: 06-30-2022 ambulatory PEBBLES WOODARD Facility:[facility] Start: 04-09-2022 End: 04-10-2022 ambulatory NONE LISTED REQUEST Facility: Procedures Date Procedure Procedure Detail Performing Clinician Start: 03-05-2024 Follow-up visit Follow-up FELICIA TAPIA Start: 03-01-2023 PSA screening [facility] Comment on above: Performed By: #### D DELANEY DATPSGuicho, DATBMP #### [facility] [address] [place] [address] Dr. Power Covarrubias Start: 08-31-2022 PSA screening PEBBLES B OES Comment on above: Performed By: #### D BRE BALTAZARPSGuicho, DATBMP #### [facility] [address] [place] [address] Dr. Power Covarrubias Start: 06-29-2022 PSA screening PEBBLES B OES Comment on above: Performed By: #### P SAS #### [facility] [address] [place] [address] Dr. Power Covarrubias Start: 10-04-2017 Colonoscopy Zhang NG Excision of lumbar intervertebral disc Zhang DENISE Comment on above: L5 Repair of hip Zhang DENISE Immunizations Immunization Date Immunization Notes Care Provider Fa cility 04-29-2021 SARS-CoV-2 (COVID-19 ) mRNA BNT-162b2 vax Zhang DENISE [facility] [place] 04-09-2021 SARS-CoV-2 (COVID-19 ) mRNA BNT-162b2 vax Zhang DENISE [facility] [place] Payers Date Payer Category Payer Self-pay 1958 Unknown [id number] 1945 Unknown [id number] 2.16.84 [id number] 1945 Unknown [id number] 2.16.84 [id number] 1945 Unknown [id number] 2.16.8 [id number] 1945 Unknown [id number] 2.16.8 [id number] 1945 Unknown [id number] 2.16.8 [id number] 1945 Unknown [id number] 2.16.8 [id number] 1945 Unknown [id number] 2.16.8 [id number] 1945 Unknown [id number] 2.16.8 [id number] 1945 Unknown [id number] 2.16.84 [id number] Unknown [id number] 2.16.84 [id number] Unknown [id number] 2.16.84 [id number] Unknown [id number] 2.16.84 [id number] Social History Date Type Detail Facility Start: 03-28-2023 Tobacco smoking status Never s moked tobacco (finding) [facility] [place] Tobacco smoking status Never Gener al [facility] [place] Sex Assigned At Male [facility] Functional Status Date Assessment Result Facility 03-28-2023 Functional Status N/A [facility] Progress note 02-19-2024 Note Date & Type Note Facility 02-19-2024 Note [facility] Note Chief Complaint: Patient here for follow up [facility] for elevated troponin and bradycardia. He was [...] 07/03/2020 Cardiovascular Laboratory Report FINAL IMPRESSIONS: 1. Mxuu-gv-fdyblast 3-vessel coronary artery disease. 2. Pbwq-da-innetsbj left main coronary artery disease that appears unchanged from prior angiography. 3. Normal global left ventricular (more content not included)... [facility] Progress note 12-13-2023 Note Date & Type Note Facility 12-13-2023 Note [facility] Cardiology Clinic Note Chief Complaint: Patient here [...] 07/03/2020 Cardiovascular Laboratory Report FINAL IMPRESSIONS: 1. Mquc-fc-xckjdpae 3-vessel coronary artery disease. 2. Dnkb-yu-ycezcpob left main coronary artery disease that appears [...] atrium is sever (more content not included)... [facility] Progress note 11-27-2023 Note Date & Type Note Facility 11-27-2023 Note [place] [facility] Subjective Oscar Cox is a 78 [...] Cognitive communication deficit Atherosclerotic heart disease of [place] coronary artery without angina pectoris Diarrhea Hypokalemia [...] discuss left atrial appendage closure. 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 He has history [...] Latest known visit (more content not included)... [facility] Progress note 06-01-2023 Note Date & [...] month ago He was admitted 04/28-05/02 at [facility] following the last fall and [...] bradycardia during ho (more content not included)... [facility] Clinical Note 03-28-2023 Note Date [...] informed consent obtained. 2. 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) hold Eliquis 2 [...] SARS-CoV-2 (COVID-19) mRNA BNT-162b2 vax 04/09/2021 Recorded [facility] Comment on above: Result Comment: Elec trodedrickally Signed By: HOWIE LOPEZ, Zhang Jensen\adrien\Date and Time Signed: 03/28/23 20:17 EDT Evaluation + Plan note Note Date & Type Note Facility Evaluation + Plan note No data available for this section [facility] [place] [facility] Discharge instructions Note Date & Type Note Facility Hospital Discharge instructions No data available for this section [facility] [place] Progress note Note Date & Type Note Facility Progress note No data available for this section General [facility] [place] Summary Purpose Family History No Family History [...] and content) DATE CREATED AUTHOR 07/07/2020 [facility] DATE CREATED AUTHOR AUTHOR'S ORGANIZ ATION 03/02/2023 [facility] DATE CREATED AUTHOR AUTHOR'S ORGANIZ ATION 03/08/2024 [facility] DATE CREATED AUTHOR AUTHOR'S ORGANIZ ATION 03/09/2024 [facility] DATE CREATED AUTHOR AUTHOR'S ORGANIZ ATION 03/12/2024 [facility] DATE CREATED AUTHOR AUTHOR'S ORGANIZ ATION 03/20/2024 [facility] EPIC Patient Care team informatio n (unrecognized section and content) Personnel Name: Neo Gould MD Address: Address: [address] [place] [address] FOR RECORDS PERTAINING TO PATIENTS WHO ARE [...] BE BASED ON THE PRIMARY CLINICAL RECORDS. [facility] [employer] [facility]. provides no warranty or guarantee of the accuracy or completeness of information in this document.
[2024-03-22] MEDS: REGADENOSON 0.4 MG/5 ML SYRINGE 0.400000000000000022 MG IV (10:19)
== END 2024-03-22 08:26 | disposition home or self-care (01) ==
LOC: NM 08:25
PROVIDERS: Visit Provider Internal Medicine Interventional Cardiology
DX: I47.10 Supraventricular tachycardia, unspecified (principal); R94.31 Abnormal electrocardiogram [ECG] [EKG]
CPT/HCPCS: 78452; 93017; A9500; J2785

== ENCOUNTER 2024-04-02 14:41 | Outpatient (OUT) | payer MEDICARE, SELFPAY ==
--- NOTE | 2024-04-02 | CONS_ITS ---
CONSULTATION DATE: 04/02/2024 TO: Javier Gould M.D. CHIEF COMPLAINT: Includes right sided neck pain, headaches. HISTORY: Describes the pain as being 7/10 pain, deep aching in character with a sharp component, increased with activities such as performing lifting maneuvers, pushing/pulling maneuvers, as well as cervical extension and right and left lateral flexion. Denies any change in bowel and bladder habits or new sensorimotor changes in the upper extremities. CURRENT MEDICATION: Includes Tylenol two pills t.i.d. p.r.n. EXAM: Notable for patient having no clinical radiculopathy involving his upper extremities. DTRs symmetrical. No appreciable signs consistent with myelopathy were noted. He did have severe pain with cervical facet loading maneuvers on the right side from C2 through C4 with associated myofascial spasm of the cervical paravertebral muscles. His CADEN on today?s visit was 53%. IMPRESSION: Our impression is patient with chronic pain secondary to right sided C2 through C4 cervical spondylosis, possible occipital neuritis status post fall. RECOMMENDATIONS: I have asked him to consider restarting baclofen 10 mg pills, one-half to one pill b.i.d., physical therapy for cervical spondylosis, and will see the patient back in the office in approximately 4-6 week?s time. As part of providing excellent, safe, comprehensive care, the following was completed at our patient's visit: 1. A medication reconciliation and review to ensure accurate knowledge of current/active medications, including asking our patients to inform us about any flog-wwl-nrmzznc medications or herbal remedies/nutritional supplements/alternative remedies. 2. A review to specifically ensure our patients have had annual screening for: elevated body mass index (BMI, see intake chart for exact total), tobacco use, screening for depression, and screening for unhealthy alcohol use. When screening is concerning, patients are provided with education and the specific recommendation to discuss the concerning health issue and treatment options with their primary care provider LISBET
== END 2024-04-02 14:42 | disposition home or self-care (01) ==
LOC: PM 14:42
PROVIDERS: Visit Provider Anesthesiology Pain Medicine
DX: M54.2 Cervicalgia (principal); R51.9 Headache, unspecified; M47.812 Spondylosis without myelopathy or radiculopathy, cervical region
CPT/HCPCS: G0463

== ENCOUNTER 2024-05-14 14:43 | Outpatient (OUT) | payer MEDICARE, SELFPAY ==
--- NOTE | 2024-05-14 | CONS_ITS ---
CONSULTATION DATE: 05/14/2024 TO: Javier Gould M.D. HISTORY: Patient returns today complaining of pain in his neck occurring bilaterally, worse on the right than left side, rated 5/10. He reports the pain being deep aching in character, increased with activities such as cervical extension, lifting maneuvers, pushing/pulling maneuvers. He feels the most comfortable in the semi-recumbent position. Denies any change in bowel and bladder habits or new sensorimotor changes in the upper extremities. CURRENT MEDICATION: Includes baclofen 10 mg pills, half a pill b.i.d; Tylenol p.r.n. He is also on Eliquis. His CADEN on today?s visit was 49%. EXAM: Notable for patient having no clinical radiculopathy or myelopathy involving his upper extremities. Patient did have mild to moderate pain with cervical facet loading maneuvers occurring bilaterally, worse on the right than left side, from C3 through C4, with associated mild myofascial spasm. IMPRESSION: Our impression is patient with chronic pain secondary to improved pain from cervical spondylosis from C3 through C4, with marked improvement in his myofascial dysfunction and myalgias. RECOMMENDATIONS: I recommend he continue with the current regimen of baclofen, but will trial reducing the dose to 10 mg pills, one-quarter pill to one-half b.i.d. He reports the half pill makes him somewhat sleepy, but he reports it does improve his symptomatology. Will re-evaluate the patient in approximately 4-6 weeks time. At this time, I do not feel he is a good candidate for a diagnostic cervical medial branch block, at this time, secondary to the fact that the patient shows marked improvement in his symptoms and signs. As part of providing excellent, safe, comprehensive care, the following was completed at our patient's visit: 1. A medication reconciliation and review to ensure accurate knowledge of current/active medications, including asking our patients to inform us about any [id number] medications or herbal remedies/nutritional supplements/alternative remedies. 2. A review to specifically ensure our patients have had annual screening for: elevated body mass index (BMI, see intake chart for exact total), tobacco use, screening for depression, and screening for unhealthy alcohol use. When screening is concerning, patients are provided with education and the specific recommendation to discuss the concerning health issue and treatment options with their primary care provider. JEANNED
--- OUTSIDE RECORDS SUMMARY | 2024-05-14 15:02 | XMS_ITS | CCD ---
Author Organization [facility] Care Team Providers Care Line Worker Name Role Phone PEBBLES WOODARD Primary Care Unavailable DEANDRE Hinson, DR LARSON Admitting Unavailable HOY ., DR LARSON Consulting Unavailable HOY ., DR LARSON Attending Unavailable REQUEST, NONE LISTED Admitting Unavaila ble REQUEST, DR ALLEN LISTED Attending Unavaila ble DEANDRE ., DR LARSON Primary Care Unavailable HOY ., DR LARSON Consulting Unavailable REQUEST, NONE LISTED Admitting Unavaila ble REQUEST, DR ALLEN LISTED Attending Unavaila FELICIA Ramos Primary Care Unavailable FELICIA TAPIA Consulting Unavailable REQUEST, DR ALLEN LISTED Admitting Unavaila ble REQUEST, DR ALLEN LISTED Consulting Unavaila ble REQUEST, DR ALLEN LISTED Attending Unavaila PEBBLES Lei Primary Care Unavailable DEANDRE Hinson, DR LARSON Primary Care Unavailable MISC, DR ALBERTO Admitting Unavailable MISC, DR ALBERTO Consulting Unavailable MISC, DR ALBERTO Attending Unavailable Neo Gould Primary Care Physician [phone] FELICIA TAPIA Attending Unavailable NEO GOULD Referring Unavailable NEO GOULD Primary Care Unavailable Zhang DENISE Attending Unavailable Zhang DENISE Attending Unavailable Zhang DENISE Attending Unavailable NILZhang Alvarez Attending Unavailable Ghislaine Morales Attending Unavailable Neo Gould Referring Unavailable TINY TRAVIS Attending Unavailable TINY TRAVIS Attending Unavailable ANATOLIY NOVAK Attending Unavailable JONATHAN HARRISON Attending Unavailable SHILOH HESTER Attending Unavailable SHILOH HESTER Attending Unavailable Allergies Allergy Classification Reported Allergen(s) Allergy Type Date of Onset Reaction(s) Facility (1 source) No Known Medication Allergies; 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: [No Known Medication Allergies] Propensity to adverse reactions (disorder) [facility] Repository Medications Current Medications Medication Drug [...] Coronary arteriosclerosis; 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: [Atherosclerotic heart disease of [place] coronary artery without angina pectoris] Onset: 12-13-2023 03-15-2023 Chronic Disorders of lipid metabolism (4 sources) Hyperlipidemia, unspecified; 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: [HYPERLIPIDEMIA UNSPECIFIED] Onset: 06-29-2022 Chronic Essential hypertension (3 sources) Hypertensive disorder; 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: [Essential (primary) hypertension] Onset: 05-11-2023 03-15-2023 Chronic Osteoarthritis (4 sources) Primary generalized (osteo)arthritis; 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: [PRIMARY GENERALIZED OSTEOARTHRITIS] Onset: 12-10-2022 Chronic Other aftercare (1 source) 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 Recommend strict heart rate and blood pressure control and avoidance of major fluid shifts. Thank you Spoke with patient and made him aware. He is currently not scheduled for any surgery. Normal [facility] 36on 03-07-2024 36 PT INFIRMED AND ORDE R SENT Normal [facility] Office Visiton 02-19-2024 Follow-up visit [id number] Oscar Cox 1945 M Date Provider Department Center 02/19/2024 SHILOH SANTACRUZ Family History Family history unknown: Yes Level of Service:60111 UT OFFICE/OUTPATIENT ESTABLISHED LOW MDM 20 MIN Normal [facility] Office Visiton 12-13-2023 Follow-up visit [id number] Oscar Cox 1945 Date Provider Department Center 12/13/2023 271-DENISHUNGUANAKITOJaclynSHILOH ABILIO [facility] Family History Family history unknown: Yes Level of Service:28362 UT OFFICE/OUTPATIENT ESTABLISHED MOD MDM 30 MIN [facility] Office Visiton 11-27-2023 Follow-up visit [id number] Oscar Cox 1945 [facility] Provider Department Center 11/27/2023 367-JONATHAN HARRISON ABILIO [facility] Family History Family history unknown: Yes Level of Service:51757 UT OFFICE/OUTPATIENT ESTABLISHED MOD MDM 30 MIN Normal [facility] Alf Recordson 07-04 Alf Records [id number] CD:127 [facility] 37on 06-01-2023 37 -Reduce Lisinopril t o 10 mg once a day -Will get an ultrasound of your heart -Continue Lasix 40 mg twice a day -Follow-up with Dr. Harrison to discuss watchman -Start Eliquis 2.5 mg twice a day and monitor for more bleeding [facility] Office Visiton 06-01-2023 Follow-up visit [id number] Oscar Cox 1945 [facility] Provider Department Center 06/01/2023 [id number]-EWQCJUKEFANATOLIY NOVAK ABILIO [facility] Family History Family history unknown: Yes Level of Service:44705 UT OFFICE/OUTPATIENT ESTABLISHED MOD MDM 30-39 MIN Reason for Visit and Comments: Follow-up [990191] - Concerns due to increased swelling bilateral legs and also having blood in urine - Eliquis is being held at the moment Normal [facility] Orders Onlyon 06-01-2023 Orders Only [id number] Oscar Cox 1945 [facility] Provider Department Center 06/01/2023 Erika-ELVIN RIVAS ABILIO [facility] Family History Family history unknown: Yes [facility] Reminderson 05-10-2023 Reminders - From: Pennie Bose LPN To: GSN - Clinical; Sent: 05/10/2023 10:13:27 EDT Show up: 03/27/2028 07:00:00 EDT Subject: colonoscopy recall Due Date/Time: 04/26/2028 07:00:00 EDT Reminder/Recall Patient due for surveillance colonoscopy 04/26/2028. Normal [facility] Pathology Noteon 05-03-2023 Pathology Note [id number] 0CD:127 Normal [facility] Outside Colonoscopyon 2022 Outside Colonoscopy [id number] 0CD:127 [facility] Pre-Certification Formon Pre-Certification Form [id number]. 00CD:127 [facility] Consent for Procedure/Surger yon 03-29-2023 Consent for Procedure/Surgery [id number] 0CD:127 [facility] Ambulatory Visit Summaryon 0 03-28-2023 Ambulatory [...] history of colonic polyps Premature beats Normal [facility] CBC AUTO DIFFon 03-01-2023 BASO # 0.0 103/ul Normal 0.0-0.1 [facility] Comment on above: Performed By: #### D ATCBC #### [facility] [address] [place] [address] Dr. Power Covarrubias Basophils/100 WBC (Bld) 0.7 % Normal 0.2-2.0 [facility] Comment on above: Performed By: #### D ATCBC #### [facility] [address] [address] [address] Power Covarrubias EO # 0.1 103/ul Normal 0.0-0.7 [facility] Comment on above: Performed By: #### D ATCBC #### [facility] [address] [place] [address] Dr. Power Covarrubias Eosinophils/100 WBC (Bld) 1.8 % Normal 0.9-7.0 [facility] Comment on above: Performed By: #### D ATCBC #### [facility] [address] [place] [address] Dr. Power Covarrubias Erythrocyte distribution width (RBC) [Ratio] 13.3 % Normal 11.0-15.0 [facility] Comment on above: Performed By: #### D ATCBC #### [facility] [address] [place] [address] Dr. Power Covarrubias Hematocrit (Bld) [Volume fraction] 40.7 % Critically low 42.0-54.0 [facility] Comment on above: Performed By: #### D ATCBC #### [facility] [address] [place] [address] Dr. Power Covarrubias Hemoglobin (Bld) [Mass/Vol] 12.9 g/dL Critically low 14.0-18.0 [facility] Comment on above: Performed By: #### D ATCBC #### [facility] [address] [place] [address] Dr. Power Covarrubias IG # 0.01 10e3/ul Normal 0.00-0.03 [facility] Comment on above: Performed By: #### D ATCBC #### [facility] [address] [place] [address] Dr. Power Covarrubias IG % 0.2 % Normal 0.0-0.5 [facility] Comment on above: Performed By: #### D ATCBC #### [facility] [address] [place] [address] Dr. Power Covarrubias LYMPH # 0.7 103/ul Critically low 1.2-3.8 [facility] Comment on above: Performed By: #### D ATCBC #### [facility] [address] [place] [address] Dr. Power Covarrubias Lymphocytes/100 WBC (Bld) 16.3 % Critically low 20.5-60.0 [facility] Comment on above: Performed By: #### D ATCBC #### [facility] [address] [place] [address] Dr. Power Covarrubias MCH (RBC) [Entitic mass] 29.6 pg Normal 25.9-34.0 [facility] Comment on above: Performed By: #### D ATCBC #### [facility] [address] [address] [address] Power Covarrubias MCHC (RBC) [Mass/Vol] 31.7 g/dL Normal 29.9-35.2 [facility] Comment on above: Performed By: #### D ATCBC #### [facility] [address] [place] [address] Dr. Power Covarrubias MCV (RBC) [Entitic vol] 93.3 fL Normal 80.0-94.0 [facility] Comment on above: Performed By: #### D ATCBC #### [facility] [address] [place] [address] Dr. Power Covarrubias MONO # 0.3 103/ul Normal 0.3-0.8 [facility] Comment on above: Performed By: #### D ATCBC #### [facility] [address] [place] [address] Dr. Power Covarrubias Monocytes/100 WBC (Bld) 7.5 % Normal 1.7-12.0 [facility] Comment on above: Performed By: #### D ATCBC #### [facility] [address] [place] [address] Dr. Power Covarrubias NEUT # 3.4 103/ul Normal 1.4-6.5 [facility] Comment on above: Performed By: #### D ATCBC #### [facility] [address] [place] [address] Dr. Power Covarrubias Neutrophils/100 WBC (Bld) 73.5 % Normal 43.0-75.0 [facility] Comment on above: Performed By: #### D ATCBC #### [facility] [address] [place] [address] Dr. Power Covarrubias Platelet mean volume (Bld) [Entitic vol] 9.9 fL Normal 9.5-13.5 [facility] Comment on above: Performed By: #### D ATCBC #### [facility] [address] [place] [address] Dr. Power Covarrubias PLT 198 103/ul Normal 150-450 [facility] Comment on above: Performed By: #### D ATCBC #### [facility] [address] [address] [address] Power Covarrubias RBC 4.36 106/ul Critically low 4.70-6.10 [facility] Comment on above: Performed By: #### D ATCBC #### [facility] [address] [address] [address] Power Covarrubias WBC 4.6 103/ul Normal 4.0-11.0 [facility] Comment on above: Performed By: #### D ATCBC #### [facility] [address] [address] [address] Power Covarrubias BRE - LIPID PROFILEon 2022 CHOL-HDL RATIO NORM SEE BELOW Normal [facility] Comment on above: Result Comment: 3.3 - 4.4 LOW RISK 4.4 - 7.1 AVERAGE RISK 7.1 - 11.0 MODERATE RISK >11.0 HIGH RISK Performed By: #### D ATLIPI, DATPSA, DATBMP #### [facility] [address] [place] [address] Dr. Power Covarrubias Cholesterol.total/Ch olesterol in HDL [Mass ratio] 2.2 {ratio} Normal [facility] Comment on above: Performed By: #### D ATLIPI, DATPSA, DATBMP #### [facility] [address] [place] [address] Dr. Power Covarrubias BRE- BMP WITH LIPIDon 2022 Anion gap [Moles/Vol] 12.8 mmol/L Normal [facility] Comment on above: Performed By: #### D ATLIPI, DATPSA, DATBMP #### [facility] [address] [address] [address] Power Covarrubias Calcium [Mass/Vol] 9.3 mg/dL Normal 8.5-10.1 [facility] Comment on above: Performed By: #### D ATLIPI, DATPSA, DATBMP #### [facility] [address] [place] [address] Dr. Power Covarrubias Chloride [Moles/Vol] 107 mmol/L Normal 98-107 [facility] Comment on above: Performed By: #### D ATLIPI, DATPSA, DATBMP #### [facility] [address] [place] [address] Dr. Power Covarrubias Cholesterol [Mass/Vol] 123 mg/dL Normal <=200 [facility] Comment on above: Performed By: #### D ATLIPI, DATPSA, DATBMP #### [facility] [address] [address] [address] Power Covarrubias Cholesterol in HDL [Mass/Vol] 56 mg/dL Normal 40-60 [facility] Comment on above: Performed By: #### D ATLIPI, DATPSA, DATBMP #### [facility] [address] [place] [address] Dr. Power Covarrubias Cholesterol in LDL [Mass/Vol] 52.0 mg/dL Normal [facility] Comment on above: Performed By: #### D ATLIPI, DATPSA, DATBMP #### [facility] [address] [place] [address] Dr. Power Covarrubias CO2 [Moles/Vol] 28.7 mmol/L Normal 21.0-32.0 [facility] Comment on above: Performed By: #### D ATLIPI, DATPSA, DATBMP #### [facility] [address] [place] [address] Dr. Power Covarrubias Creatinine [Mass/Vol] 0.93 mg/dL Normal 0.70-1.30 [facility] Comment on above: Performed By: #### D ATLIPI, DATPSA, DATBMP #### [facility] [address] [place] [address] Dr. Power Covarrubias EGFR-AF MONGOLIAN >60 Normal >=60 [facility] Comment on above: Performed By: #### D ATLIPI, DATPSA, DATBMP #### [facility] [address] [place] [address] Dr. Power Covarrubias EGFR-NON AF MONGOLIAN >60 Normal >=60 [facility] Comment on above: Performed By: #### D ATLIPI, DATPSA, DATBMP #### [facility] [address] [address] [address] Power Covarrubias Glucose [Mass/Vol] 97 mg/dL Normal 74-106 [facility] Comment on above: Performed By: #### D ATLIPI, DATPSA, DATBMP #### [facility] [address] [address] [address] Power Covarrubias HDL NORMAL > or = 60 mg/dl - LO W CARDIOVASCULAR RISK <40 mg/dl - HIGH CARDIOVASCULAR RISK Normal [facility] Comment on above: Performed By: #### D ATLIPI, DATPSA, DATBMP #### [facility] [address] [address] [address] Power Covarrubias LDL CALC NORMAL SEE BELOW Normal [facility] Comment on above: Result Comment: <100 mg/dl OPTIMAL 100 - 129 mg/dl NEAR OR ABOVE OPTIMAL 130 - 159 mg/dl BORDERLINE HIGH 160 - 189 mg/dl HIGH >190 mg/dl VERY HIGH Performed By: #### D ATLIPI, DATPSA, DATBMP #### [facility] [address] [address] [address] Power Covarrubias Potassium [Moles/Vol] 3.5 mmol/L Normal 3.5-5.1 [facility] Comment on above: Performed By: #### D ATLIPI, DATPSA, DATBMP #### [facility] [address] [address] [address] Power Covarrubias Sodium [Moles/Vol] 145 mmol/L Normal 136-145 [facility] Comment on above: Performed By: #### D ATLIPI, DATPSA, DATBMP #### [facility] [address] [address] [address] Power Covarrubias Triglyceride [Mass/Vol] 75 mg/dL Normal <=150 [facility] Comment on above: Performed By: #### D ATLIPI, DATPSA, DATBMP #### [facility] [address] [address] [address] Power Covarrubias Urea nitrogen [Mass/Vol] 11.0 mg/dL Normal 7.0-18.0 [facility] Comment on above: Performed By: #### D ATLIPI, DATPSA, DATBMP #### [facility] [address] [place] [address] Dr. Power Covarrubias Urea nitrogen/Creatinine [Mass ratio] 11.8 mg/mg Normal [facility] Comment on above: Performed By: #### D ATLIPI, DATPSA, DATBMP #### [facility] [address] [place] [address] Dr. Power Covarrubias VLDL CALC 15.0 mg/dL Normal [facility] Comment on above: Performed By: #### D ATLIPI, DATPSA, DATBMP #### [facility] [address] [place] [address] Dr. Power Covarrubias GLYCOHEMOGLOBIN A1Con 2022 ADA RECOMMENDATION SEE BELOW Normal [facility] Comment on above: Result Comment: ADA RECOMMENDED LIMIT 4.0 - 6.0 ADA THERAPEUTIC TARGET < 7.0 ACTION SUGGESTED > 7.0 Performed By: #### D ATLIPI, DATPSA, DATBMP #### [facility] [address] [place] [address] Dr. Power Covarrubias Glucose [Mass/Vol] 105 mg/dL Normal [facility] Comment on above: Performed By: #### D ATLIPI, DATPSA, DATBMP #### [facility] [address] [place] [address] Dr. Power Covarrubias HbA1c (Bld) [Mass fraction] 5.3 % Normal 4.5-6.2 [facility] Comment on above: Performed By: #### D ATLIPI, DATPSA, DATBMP #### [facility] [address] [place] [address] Dr. Power Covarrubias CBC AUTO DIFFon 12-10-2022 BASO # 0.0 103/ul Normal 0.0-0.1 [facility] Comment on above: Performed By: #### D ATLIPI, DATPSA, DATBMP #### [facility] [address] [place] [address] Dr. Power Covarrubias Basophils/100 WBC (Bld) 0.4 % Normal 0.2-2.0 [facility] Comment on above: Performed By: #### D ATLIPI, DATPSA, DATBMP #### [facility] [address] [place] [address] Dr. Power Covarrubias EO # 0.2 103/ul Normal 0.0-0.7 [facility] Comment on above: Performed By: #### D ATLIPI, DATPSA, DATBMP #### [facility] [address] [place] [address] Dr. Power Covarrubias Eosinophils/100 WBC (Bld) 3.6 % Normal 0.9-7.0 [facility] Comment on above: Performed By: #### D ATLIPI, DATPSA, DATBMP #### [facility] [address] [place] [address] Dr. Power Covarrubias Erythrocyte distribution width (RBC) [Ratio] 13.5 % Normal 11.0-15.0 [facility] Comment on above: Performed By: #### D ATLIPI, DATPSA, DATBMP #### [facility] [address] [place] [address] Dr. Power Covarrubias Hematocrit (Bld) [Volume fraction] 37.5 % Critically low 42.0-54.0 [facility] Comment on above: Performed By: #### D ATLIPI, DATPSA, DATBMP #### [facility] [address] [place] [address] Dr. Power Covarrubias Hemoglobin (Bld) [Mass/Vol] 12.0 g/dL Critically low 14.0-18.0 [facility] Comment on above: Performed By: #### D ATLIPI, DATPSA, DATBMP #### [facility] [address] [place] [address] Dr. Power Covarrubias IG # 0.02 10e3/ul Normal 0.00-0.03 [facility] Comment on above: Performed By: #### D ATLIPI, DATPSA, DATBMP #### [facility] [address] [place] [address] Dr. Power Covarrubias IG % 0.4 % Normal 0.0-0.5 [facility] Comment on above: Performed By: #### D ATLIPI, DATPSA, DATBMP #### [facility] [address] [place] [address] Dr. Power Covarrubias LYMPH # 0.9 103/ul Critically low 1.2-3.8 [facility] Comment on above: Performed By: #### D ATLIPI, DATPSA, DATBMP #### [facility] [address] [place] [address] Dr. Power Covarrubias Lymphocytes/100 WBC (Bld) 17.7 % Critically low 20.5-60.0 [facility] Comment on above: Performed By: #### D ATLIPI, DATPSA, DATBMP #### [facility] [address] [place] [address] Dr. Power Covarrubias MANUAL DIFF REQ NO Normal [facility] Comment on above: Performed By: #### D ATLIPI, DATPSA, DATBMP #### [facility] [address] [place] [address] Dr. Power Covarrubias MCH (RBC) [Entitic mass] 29.7 pg Normal 25.9-34.0 [facility] Comment on above: Performed By: #### D ATLIPI, DATPSA, DATBMP #### [facility] [address] [place] [address] Dr. Power Covarrubias MCHC (RBC) [Mass/Vol] 32.0 g/dL Normal 29.9-35.2 [facility] Comment on above: Performed By: #### D ATLIPI, DATPSA, DATBMP #### [facility] [address] [place] [address] Dr. Power Covarrubias MCV (RBC) [Entitic vol] 92.8 fL Normal 80.0-94.0 [facility] Comment on above: Performed By: #### D ATLIPI, DATPSA, DATBMP #### [facility] [address] [place] [address] Dr. Power Covarrubias MONO # 0.6 103/ul Normal 0.3-0.8 [facility] Comment on above: Performed By: #### D ATLIPI, DATPSA, DATBMP #### [facility] [address] [place] [address] Dr. Power Covarrubias Monocytes/100 WBC (Bld) 11.1 % Normal 1.7-12.0 [facility] Comment on above: Performed By: #### D ATLIPI, DATPSA, DATBMP #### [facility] [address] [place] [address] Dr. Power Covarrubias NEUT # 3.6 103/ul Normal 1.4-6.5 [facility] Comment on above: Performed By: #### D ATLIPI, DATPSA, DATBMP #### [facility] [address] [place] [address] Dr. Power Covarrubias Neutrophils/100 WBC (Bld) 66.8 % Normal 43.0-75.0 [facility] Comment on above: Performed By: #### D ATLIPI, DATPSA, DATBMP #### [facility] [address] [place] [address] Dr. Power Covarrubias Platelet mean volume (Bld) [Entitic vol] 9.8 fL Normal 9.5-13.5 [facility] Comment on above: Performed By: #### D ATLIPI, DATPSA, DATBMP #### [facility] [address] [place] [address] Dr. Power Covarrubias PLT 199 103/ul Normal 150-450 [facility] Comment on above: Performed By: #### D ATLIPI, DATPSA, DATBMP #### [facility] [address] [place] [address] Dr. Power Covarrubias RBC 4.04 106/ul Critically low 4.70-6.10 [facility] Comment on above: Performed By: #### D ATLIPI, DATPSA, DATBMP #### [facility] [address] [place] [address] Dr. Power Covarrubias WBC 5.3 103/ul Normal 4.0-11.0 [facility] Comment on above: Performed By: #### D ATLMACK, DATPSA, DATBMP #### [facility] [address] [place] [address] Dr. Power Covarrubias PROF 14(COMP METB)on 023 Albumin [Mass/Vol] 3.3 g/dL Critically low 3.4-5.0 [facility] Comment on above: Performed By: #### C MP #### [facility] [address] [place] [address] Dr. Power Covarrubias Albumin/Globulin [Mass ratio] 0.9 {ratio} Normal [facility] Comment on above: Performed By: #### C MP #### [facility] [address] [place] [address] Dr. Power Covarrubias ALP [Catalytic activity/Vol] 99 U/L Normal 46-116 [facility] Comment on above: Performed By: #### C MP #### [facility] [address] [place] [address] Dr. Power Covarrubias ALT [Catalytic activity/Vol] 17 U/L Normal 16-63 [facility] Comment on above: Performed By: #### C MP #### [facility] [address] [place] [address] Dr. Power Covarrubias Anion gap [Moles/Vol] 11.6 mmol/L Normal [facility] Comment on above: Performed By: #### C MP #### [facility] [address] [place] [address] Dr. Power Covarrubias AST [Catalytic activity/Vol] 15 U/L Normal 15-37 [facility] Comment on above: Performed By: #### C MP #### [facility] [address] [place] [address] Dr. Power Covarrubias Bilirubin [Mass/Vol] 0.6 mg/dL Normal 0.2-1.0 [facility] Comment on above: Performed By: #### C MP #### [facility] [address] [address] [address] Power Covarrubias Calcium [Mass/Vol] 9.4 mg/dL Normal 8.5-10.1 [facility] Comment on above: Performed By: #### C MP #### [facility] [address] [address] [address] Power Covarrubias Chloride [Moles/Vol] 107 mmol/L Normal 98-107 [facility] Comment on above: Performed By: #### C MP #### [facility] [address] [place] [address] Dr. Power Covarrubias CO2 [Moles/Vol] 29.2 mmol/L Normal 21.0-32.0 [facility] Comment on above: Performed By: #### C MP #### [facility] [facility] [address] [place] [address] Dr. Power Covarrubias Creatinine [Mass/Vol] 0.87 mg/dL Normal 0.70-1.30 [facility] Comment on above: Performed By: #### C MP #### [facility] [address] [place] [address] Dr. Power Covarrubias EGFR-AF MONGOLIAN >60 Normal >=60 [facility] Comment on above: Performed By: #### C MP #### [facility] [address] [place] [address] Dr. Power Covarrubias EGFR-NON AF MONGOLIAN >60 Normal >=60 [facility] Comment on above: Performed By: #### C MP #### [facility] [address] [address] [address] Power Covarrubias Globulin (S) [Mass/Vol] 3.6 g/dL Normal [facility] Comment on above: Performed By: #### C MP #### [facility] [address] [place] [address] Dr. Power Covarrubias Glucose [Mass/Vol] 107 mg/dL Critically high 74-106 [facility] Comment on above: Performed By: #### C MP #### [facility] [address] [place] [address] Dr. Power Covarrubias Potassium [Moles/Vol] 3.8 mmol/L Normal 3.5-5.1 [facility] Comment on above: Performed By: #### C MP #### [facility] [address] [place] [address] Dr. Power Covarrubias Protein [Mass/Vol] 6.9 g/dL Normal 6.4-8.2 [facility] Comment on above: Performed By: #### C MP #### [facility] [address] [place] [address] Dr. Power Covarrubias Sodium [Moles/Vol] 144 mmol/L Normal 136-145 [facility] Comment on above: Performed By: #### C MP #### [facility] [address] [place] [address] Dr. Power Covarrbuias Urea nitrogen [Mass/Vol] 12.0 mg/dL Normal 7.0-18.0 [facility] Comment on above: Performed By: #### C MP #### [facility] [address] [place] [address] Dr. Power Covarrubias Urea nitrogen/Creatinine [Mass ratio] 13.8 mg/mg Normal [facility] Comment on above: Performed By: #### C MP #### [facility] [address] [place] [address] Dr. Power Covarrubias CBC AUTO DIFFon 08-31-2022 BASO # 0.0 103/ul Normal 0.0-0.1 [facility] Comment on above: Performed By: #### D ATLIPI DATPSA, DATBMP #### [facility] [address] [place] [address] Dr. Power Covarrubias Basophils/100 WBC (Bld) 0.7 % Normal 0.2-2.0 [facility] Comment on above: Performed By: #### D ATLIPI, DATPSA, DATBMP #### [facility] [address] [place] [address] Dr. Power Covarrubias EO # 0.2 103/ul Normal 0.0-0.7 [facility] Comment on above: Performed By: #### D ATLIPI, DATPSA, DATBMP #### [facility] [address] [place] [address] Dr. Power Covarrubias Eosinophils/100 WBC (Bld) 3.5 % Normal 0.9-7.0 [facility] Comment on above: Performed By: #### D ATLIPI, DATPSA, DATBMP #### [facility] [address] [place] [address] Dr. Power Covarrubias Erythrocyte distribution width (RBC) [Ratio] 13.2 % Normal 11.0-15.0 [facility] Comment on above: Performed By: #### D ATLIPI, DATPSA, DATBMP #### [facility] [address] [place] [address] Dr. Power Covarrubias Hematocrit (Bld) [Volume fraction] 39.3 % Critically low 42.0-54.0 [facility] Comment on above: Performed By: #### D ATLIPI, DATPSA, DATBMP #### [facility] [address] [place] [address] Dr. Power Covarrubias Hemoglobin (Bld) [Mass/Vol] 12.9 g/dL Critically low 14.0-18.0 [facility] Comment on above: Performed By: #### D ATLIPI, DATPSA, DATBMP #### [facility] [address] [place] [address] Dr. Power Covarrubias IG # 0.02 10e3/ul Normal 0.00-0.03 [facility] Comment on above: Performed By: #### D ATLIPI, DATPSA, DATBMP #### [facility] [address] [place] [address] Dr. Power Covarrubias IG % 0.4 % Normal 0.0-0.5 [facility] Comment on above: Performed By: #### D ATLIPI, DATPSA, DATBMP #### [facility] [address] [place] [address] Dr. Power Covarrubias LYMPH # 0.9 103/ul Critically low 1.2-3.8 [facility] Comment on above: Performed By: #### D ATLIPI, DATPSA, DATBMP #### [facility] [address] [place] [address] Dr. Power Covarrubias Lymphocytes/100 WBC (Bld) 16.4 % Critically low 20.5-60.0 [facility] Comment on above: Performed By: #### D ATLIPI, DATPSA, DATBMP #### [facility] [address] [place] [address] Dr. Power Covarrubias MCH (RBC) [Entitic mass] 30.7 pg Normal 25.9-34.0 [facility] Comment on above: Performed By: #### D ATLIPI, DATPSA, DATBMP #### [facility] [address] [place] [address] Dr. Power Covarrubias MCHC (RBC) [Mass/Vol] 32.8 g/dL Normal 29.9-35.2 [facility] Comment on above: Performed By: #### D ATLIPI, DATPSA, DATBMP #### [facility] [address] [place] [address] Dr. Power Covarrubias MCV (RBC) [Entitic vol] 93.6 fL Normal 80.0-94.0 [facility] Comment on above: Performed By: #### D ATLIPI, DATPSA, DATBMP #### [facility] [address] [place] [address] Dr. Power Covarrubias MONO # 0.5 103/ul Normal 0.3-0.8 [facility] Comment on above: Performed By: #### D ATLIPI, DATPSA, DATBMP #### [facility] [address] [place] [address] Dr. Power Covarrubias Monocytes/100 WBC (Bld) 9.0 % Normal 1.7-12.0 [facility] Comment on above: Performed By: #### D ATLIPI, DATPSA, DATBMP #### [facility] [address] [place] [address] Dr. Power Covarrubias NEUT # 3.8 103/ul Normal 1.4-6.5 [facility] Comment on above: Performed By: #### D ATLIPI, DATPSA, DATBMP #### [facility] [address] [place] [address] Dr. Power Covarrubias Neutrophils/100 WBC (Bld) 70.0 % Normal 43.0-75.0 [facility] Comment on above: Performed By: #### D ATLIPI, DATPSA, DATBMP #### [facility] [address] [place] [address] Dr. Power Covarrubias Platelet mean volume (Bld) [Entitic vol] 9.9 fL Normal 9.5-13.5 [facility] Comment on above: Performed By: #### D ATLIPI, DATPSA, DATBMP #### [facility] [address] [place] [address] Dr. Power Covarrubias PLT 195 103/ul Normal 150-450 [facility] Comment on above: Performed By: #### D ATLIPI, DATPSA, DATBMP #### [facility] [address] [place] [address] Dr. Power Covarrubias RBC 4.20 106/ul Critically low 4.70-6.10 [facility] Comment on above: Performed By: #### D ATLIPI, DATPSA, DATBMP #### [facility] [address] [place] [address] Dr. Power Covarrubias WBC 5.4 103/ul Normal 4.0-11.0 [facility] Comment on above: Performed By: #### D ATLIPI, DATPSA, DATBMP #### [facility] [address] [place] [address] Dr. Power Covarrubias BRE- BMP WITH LIPIDon 2021 Anion gap [Moles/Vol] 10.8 mmol/L Normal [facility] Comment on above: Performed By: #### D ATLIPI, DATPSA, DATBMP #### [facility] [address] [place] [address] Dr. Power Covarrubias Calcium [Mass/Vol] 9.3 mg/dL Normal 8.5-10.1 [facility] Comment on above: Performed By: #### D ATLIPI, DATPSA, DATBMP #### [facility] [address] [address] [address] Power Covarrubias Chloride [Moles/Vol] 105 mmol/L Normal 98-107 [facility] Comment on above: Performed By: #### D ATLIPI, DATPSA, DATBMP #### [facility] [address] [address] [address] Power Covarrubias Cholesterol [Mass/Vol] 123 mg/dL Normal <=200 [facility] Comment on above: Performed By: #### D ATLIPI, DATPSA, DATBMP #### [facility] [address] [place] [address] Dr. Power Covarrubias Cholesterol in HDL [Mass/Vol] 51 mg/dL Normal 40-60 [facility] Comment on above: Performed By: #### D ATLIPI, DATPSA, DATBMP #### [facility] [address] [address] [address] Power Covarrubias Cholesterol in LDL [Mass/Vol] 56.0 mg/dL Normal [facility] Comment on above: Performed By: #### D ATLIPI, DATPSA, DATBMP #### [facility] [address] [address] [address] Power Covarrubias CO2 [Moles/Vol] 28.2 mmol/L Normal 21.0-32.0 [facility] Comment on above: Performed By: #### D ATLIPI, DATPSA, DATBMP #### [facility] [address] [place] [address] Dr. Power Covarrubias Creatinine [Mass/Vol] 0.86 mg/dL Normal 0.70-1.30 [facility] Comment on above: Performed By: #### D ATLIPI, DATPSA, DATBMP #### [facility] [address] [place] [address] Dr. Power Covarrubias EGFR-AF MONGOLIAN >60 Normal >=60 [facility] Comment on above: Performed By: #### D ATLIPI, DATPSA, DATBMP #### [facility] [address] [address] [address] Power Covarrubias EGFR-NON AF MONGOLIAN >60 Normal >=60 [facility] Comment on above: Performed By: #### D ATLIPI, DATPSA, DATBMP #### [facility] [address] [address] [address] Power Covarrubias Glucose [Mass/Vol] 90 mg/dL Normal 74-106 [facility] Comment on above: Performed By: #### D ATLIPI, DATPSA, DATBMP #### [facility] [address] [address] [address] Power Covarrubias HDL NORMAL > or = 60 mg/dl - LO W CARDIOVASCULAR RISK <40 mg/dl - HIGH CARDIOVASCULAR RISK Normal [facility] Comment on above: Performed By: #### D ATLIPI, DATPSA, DATBMP #### [facility] [address] [address] [address] Power Covarrubias LDL CALC NORMAL SEE BELOW Normal [facility] Comment on above: Result Comment: <100 mg/dl OPTIMAL 100 - 129 mg/dl NEAR OR ABOVE OPTIMAL 130 - 159 mg/dl BORDERLINE HIGH 160 - 189 mg/dl HIGH >190 mg/dl VERY HIGH Performed By: #### D ATLIPI, DATPSA, DATBMP #### [facility] [address] [address] [address] Power Covarrubias Potassium [Moles/Vol] 4.0 mmol/L Normal 3.5-5.1 [facility] Comment on above: Performed By: #### D ATLIPI, DATPSA, DATBMP #### [facility] [address] [address] [address] Power Covarrubias Sodium [Moles/Vol] 140 mmol/L Normal 136-145 [facility] Comment on above: Performed By: #### D ATLIPI, DATPSA, DATBMP #### [facility] [address] [address] [address] Power Covarrubias Triglyceride [Mass/Vol] 80 mg/dL Normal <=150 [facility] Comment on above: Performed By: #### D ATLIPI, DATPSA, DATBMP #### [facility] [address] [place] [address] Dr. Power Covarrubias Urea nitrogen [Mass/Vol] 14.0 mg/dL Normal 7.0-18.0 [facility] Comment on above: Performed By: #### D ATLIPI, DATPSA, DATBMP #### [facility] [address] [place] [address] Dr. Power Covarrubias Urea nitrogen/Creatinine [Mass ratio] 16.3 mg/mg Normal [facility] Comment on above: Performed By: #### D ATLIPI, DATPSA, DATBMP #### [facility] [address] [place] [address] Dr. Power Covarrubias VLDL CALC 16.0 mg/dL Normal [facility] Comment on above: Performed By: #### D ATLIPI, DATPSA, DATBMP #### [facility] [address] [place] [address] Dr. Power Covarrubias OCC BLD IMMUNO SCREENon 06-16 OCCULT BLOOD Negative Normal NEGATIVE [facility] Comment on above: Performed By: #### O BSCRN #### [facility] [address] [place] [address] Dr. Power Covarrubias T4 [facility] 06-30-2022 T4 [Mass/Vol] 9.2 ug/dL Normal 4.5-12.0 [facility] Comment on above: Performed By: #### D ATLIPI, DATPSA, DATBMP #### [facility] [address] [place] [address] Dr. Power Covarrubias CBC AUTO DIFFon 06-29-2022 BASO # 0.0 103/ul Normal 0.0-0.1 [facility] Comment on above: Performed By: #### D ATLIPI, DATPSA, DATBMP #### [facility] [address] [place] [address] Dr. Power Covarrubias Basophils/100 WBC (Bld) 0.5 % Normal 0.2-2.0 [facility] Comment on above: Performed By: #### D ATLIPI, DATPSA, DATBMP #### [facility] [address] [place] [address] Dr. Power Covarrubias EO # 0.1 103/ul Normal 0.0-0.7 [facility] Comment on above: Performed By: #### D ATLIPI, DATPSA, DATBMP #### [facility] [address] [place] [address] Dr. Power Covarrubias Eosinophils/100 WBC (Bld) 2.5 % Normal 0.9-7.0 [facility] Comment on above: Performed By: #### D ATLIPI, DATPSA, DATBMP #### [facility] [address] [place] [address] Dr. Power Covarrubias Erythrocyte distribution width (RBC) [Ratio] 13.4 % Normal 11.0-15.0 [facility] Comment on above: Performed By: #### D ATLIPI, DATPSA, DATBMP #### [facility] [address] [place] [address] Dr. Power Covarrubias Hematocrit (Bld) [Volume fraction] 38.1 % Critically low 42.0-54.0 [facility] Comment on above: Performed By: #### D ATLIPI, DATPSA, DATBMP #### [facility] [address] [place] [address] Dr. Power Covarrubias Hemoglobin (Bld) [Mass/Vol] 12.0 g/dL Critically low 14.0-18.0 [facility] Comment on above: Performed By: #### D ATLIPI, DATPSA, DATBMP #### [facility] [address] [place] [address] Dr. Power Covarrubias IG # 0.01 10e3/ul Normal 0.00-0.03 [facility] Comment on above: Performed By: #### D ATLIPI, DATPSA, DATBMP #### [facility] [address] [place] [address] Dr. Power Covarrubias IG % 0.2 % Normal 0.0-0.5 [facility] Comment on above: Performed By: #### D ATLIPI, DATPSA, DATBMP #### [facility] [address] [place] [address] Dr. Power Covarrubias LYMPH # 0.9 103/ul Critically low 1.2-3.8 [facility] Comment on above: Performed By: #### D ATLIPI, DATPSA, DATBMP #### [facility] [address] [place] [address] Dr. Power Covarrubias Lymphocytes/100 WBC (Bld) 15.5 % Critically low 20.5-60.0 [facility] Comment on above: Performed By: #### D ATLIPI, DATPSA, DATBMP #### [facility] [address] [place] [address] Dr. Power Covarrubias MANUAL DIFF REQ NO Normal [facility] Comment on above: Performed By: #### D ATLIPI, DATPSA, DATBMP #### [facility] [address] [place] [address] Dr. Power Covarrubias MCH (RBC) [Entitic mass] 30.2 pg Normal 25.9-34.0 [facility] Comment on above: Performed By: #### D ATLIPI, DATPSA, DATBMP #### [facility] [address] [place] [address] Dr. Power Covarrubias MCHC (RBC) [Mass/Vol] 31.5 g/dL Normal 29.9-35.2 [facility] Comment on above: Performed By: #### D ATLIPI, DATPSA, DATBMP #### [facility] [address] [place] [address] Dr. Power Covarrubias MCV (RBC) [Entitic vol] 96.0 fL Critically high 80.0-94.0 [facility] Comment on above: Performed By: #### D ATLIPI, DATPSA, DATBMP #### [facility] [address] [place] [address] Dr. Power Covarrubias MONO # 0.5 103/ul Normal 0.3-0.8 [facility] Comment on above: Performed By: #### D ATLIPI, DATPSA, DATBMP #### [facility] [address] [place] [address] Dr. Power Covarrubias Monocytes/100 WBC (Bld) 9.5 % Normal 1.7-12.0 [facility] Comment on above: Performed By: #### D ATLIPI, DATPSA, DATBMP #### [facility] [address] [place] [address] Dr. Power Covarrubias NEUT # 4.1 103/ul Normal 1.4-6.5 [facility] Comment on above: Performed By: #### D ATLIPI, DATPSA, DATBMP #### [facility] [address] [place] [address] Dr. Power Covarrubias Neutrophils/100 WBC (Bld) 71.8 % Normal 43.0-75.0 [facility] Comment on above: Performed By: #### D ATLIPI, DATPSA, DATBMP #### [facility] [address] [place] [address] Dr. Power Covarrubias Platelet mean volume (Bld) [Entitic vol] 9.8 fL Normal 9.5-13.5 [facility] Comment on above: Performed By: #### D ATLIPI, DATPSA, DATBMP #### [facility] [address] [place] [address] Dr. Power Covarrubias PLT 212 103/ul Normal 150-450 [facility] Comment on above: Performed By: #### D ATLIPI, DATPSA, DATBMP #### [facility] [address] [place] [address] Dr. Power Covarrubias RBC 3.97 106/ul Critically low 4.70-6.10 [facility] Comment on above: Performed By: #### D ATLIPI, DATPSA, DATBMP #### [facility] [address] [place] [address] Dr. Power Covarrubias WBC 5.7 103/ul Normal 4.0-11.0 [facility] Comment on above: Performed By: #### D ATLIPI, DATPSA, DATBMP #### [facility] [address] [address] [address] Power Covarrubias FREE T3on 06-29-2022 FREE T3 2.73 pg/mlL Normal 2.18-3.98 [facility] Comment on above: Performed By: #### D ATLIPI, DATPSA, DATBMP #### [facility] [address] [address] [address] Power Covarrubias GLYCOHEMOGLOBIN A1Con 2021 ADA RECOMMENDATION SEE BELOW Normal [facility] Comment on above: Result Comment: ADA RECOMMENDED LIMIT 4.0 - 6.0 ADA THERAPEUTIC TARGET < 7.0 ACTION SUGGESTED > 7.0 Performed By: #### A 1C #### [facility] [address] [place] [address] Dr. Power Covarrubias Glucose [Mass/Vol] 114 mg/dL Normal [facility] Comment on above: Performed By: #### A 1C #### [facility] [address] [place] [address] Dr. Power Covarrubias HbA1c (Bld) [Mass fraction] 5.6 % Normal 4.5-6.2 [facility] Comment on above: Performed By: #### A 1C #### [facility] [address] [place] [address] Dr. Power Covarrubias LIPID PROFILEon 06-29-2022 CHOL-HDL RATIO NORM SEE BELOW Normal [facility] Comment on above: Result Comment: 3.3 - 4.4 LOW RISK 4.4 - 7.1 AVERAGE RISK 7.1 - 11.0 MODERATE RISK >11.0 HIGH RISK Performed By: #### D ATLIPI, DATPSA, DATBMP #### [facility] [address] [place] [address] Dr. Power Covarrubias Cholesterol [Mass/Vol] 110 mg/dL Normal <=200 [facility] Comment on above: Performed By: #### D ATLIPI, DATPSA, DATBMP #### [facility] [address] [place] [address] Dr. Power Covarrubias Cholesterol in HDL [Mass/Vol] 47 mg/dL Normal 40-60 [facility] Comment on above: Performed By: #### D ATLIPI, DATPSA, DATBMP #### [facility] [address] [address] [address] Power Covarrubias Cholesterol in LDL [Mass/Vol] 51.2 mg/dL Normal [facility] Comment on above: Performed By: #### D ATLIPI, DATPSA, DATBMP #### [facility] [address] [address] [address] Power Covarrubias Cholesterol.total/Ch olesterol in HDL [Mass ratio] 2.3 {ratio} Normal [facility] Comment on above: Performed By: #### D ATLIPI, DATPSA, DATBMP #### [facility] [address] [address] [address] Power Covarrubias HDL NORMAL > or = 60 mg/dl - LO W CARDIOVASCULAR RISK <40 mg/dl - HIGH CARDIOVASCULAR RISK Normal [facility] Comment on above: Performed By: #### D ATLIPI, DATPSA, DATBMP #### [facility] [address] [address] [address] Power Covarrubias LDL CALC NORMAL SEE BELOW Normal [facility] Comment on above: Result Comment: <100 mg/dl OPTIMAL 100 - 129 mg/dl NEAR OR ABOVE OPTIMAL 130 - 159 mg/dl BORDERLINE HIGH 160 - 189 mg/dl HIGH >190 mg/dl VERY HIGH Performed By: #### D ATLIPI, DATPSA, DATBMP #### [facility] [address] [address] [address] Power Covarrubias Triglyceride [Mass/Vol] 59 mg/dL Normal <=150 [facility] Comment on above: Performed By: #### D ATLIPI, DATPSA, DATBMP #### [facility] [address] [address] [address] Power Covarrubias VLDL CALC 11.8 mg/dL Normal [facility] Comment on above: Performed By: #### D ATLIPI, DATPSA, DATBMP #### [facility] [address] [place] [address] Dr. Power Covarrubias PROF 14(COMP METB)on 022 Albumin [Mass/Vol] 3.3 g/dL Critically low 3.4-5.0 [facility] Comment on above: Performed By: #### D ATLIPI, DATPSA, DATBMP #### [facility] [address] [place] [address] Dr. Power Covarrubias Albumin/Globulin [Mass ratio] 0.9 {ratio} Normal [facility] Comment on above: Performed By: #### D ATLIPI, DATPSA, DATBMP #### [facility] [address] [place] [address] Dr. Power Covarrubias ALP [Catalytic activity/Vol] 100 U/L Normal 46-116 [facility] Comment on above: Performed By: #### D ATLIPI, DATPSA, DATBMP #### [facility] [address] [place] [address] Dr. Power Covarrubias ALT [Catalytic activity/Vol] 16 U/L Normal 16-63 [facility] Comment on above: Performed By: #### D ATLIPI, DATPSA, DATBMP #### [facility] [address] [place] [address] Dr. Power Covarrubias Anion gap [Moles/Vol] 11.4 mmol/L Normal [facility] Comment on above: Performed By: #### D ATLIPI, DATPSA, DATBMP #### [facility] [address] [place] [address] Dr. Power Covarrubias AST [Catalytic activity/Vol] 14 U/L Critically low 15-37 [facility] Comment on above: Performed By: #### D ATLIPI, DATPSA, DATBMP #### [facility] [address] [place] [address] Dr. Power Covarrubias Bilirubin [Mass/Vol] 0.7 mg/dL Normal 0.2-1.0 [facility] Comment on above: Performed By: #### D ATLIPI, DATPSA, DATBMP #### [facility] [address] [address] [address] Power Covarrubias Calcium [Mass/Vol] 9.0 mg/dL Normal 8.5-10.1 [facility] Comment on above: Performed By: #### D ATLIPI, DATPSA, DATBMP #### [facility] [address] [place] [address] Dr. Power Covarrubias Chloride [Moles/Vol] 107 mmol/L Normal 98-107 [facility] Comment on above: Performed By: #### D ATLIPI, DATPSA, DATBMP #### [facility] [address] [place] [address] Dr. Power Covarrubias CO2 [Moles/Vol] 28.5 mmol/L Normal 21.0-32.0 [facility] Comment on above: Performed By: #### D ATLIPI, DATPSA, DATBMP #### [facility] [address] [place] [address] Dr. Power Covarrubias Creatinine [Mass/Vol] 0.87 mg/dL Normal 0.70-1.30 [facility] Comment on above: Performed By: #### D ATLIPI, DATPSA, DATBMP #### [facility] [address] [place] [address] Dr. Power Covarrubias EGFR-AF MONGOLIAN >60 Normal >=60 [facility] Comment on above: Performed By: #### D ATLIPI, DATPSA, DATBMP #### [facility] [address] [place] [address] Dr. Power Covarrubias EGFR-NON AF MONGOLIAN >60 Normal >=60 [facility] Comment on above: Performed By: #### D ATLIPI, DATPSA, DATBMP #### [facility] [address] [place] [address] Dr. Power Covarrubias Globulin (S) [Mass/Vol] 3.6 g/dL Normal [facility] Comment on above: Performed By: #### D ATLIPI, DATPSA, DATBMP #### [facility] [address] [place], [place] [id number] Dr. Power Covarrubias Glucose [Mass/Vol] 90 mg/dL Normal 74-106 [facility] Comment on above: Performed By: #### D ATLIPI, DATPSA, DATBMP #### [facility] [address] [place] [address] Dr. Power Covarrubias Potassium [Moles/Vol] 3.9 mmol/L Normal 3.5-5.1 [facility] Comment on above: Performed By: #### D ATLIPI, DATPSA, DATBMP #### [facility] [address] [address] [address] Power Covarrubias Protein [Mass/Vol] 6.9 g/dL Normal 6.4-8.2 [facility] [facility] Comment on above: Performed By: #### D ATLIPI, DATPSA, DATBMP #### [facility] [address] [place] [address] Dr. Power Covarrubias Sodium [Moles/Vol] 143 mmol/L Normal 136-145 [facility] Comment on above: Performed By: #### D ATLIPI, DATPSA, DATBMP #### [facility] [address] [place] [address] Dr. Power Covarrubias Urea nitrogen [Mass/Vol] 13.0 mg/dL Normal 7.0-18.0 [facility] Comment on above: Performed By: #### D ATLIPI, DATPSA, DATBMP #### [facility] [address] [place] [address] Dr. Power Covarrubias Urea nitrogen/Creatinine [Mass ratio] 14.9 mg/mg Normal [facility] Comment on above: Performed By: #### D ATLIPI, DATPSA, DATBMP #### [facility] [address] [place] [address] Dr. Power Covarrubias TSHon 06-29-2022 TSH 2.585 uIU/mL Normal 0.358-3.740 The [facility] Comment on above: Performed By: #### T SH, LIPID, FT3, CMP #### [facility] [address] [place] [address] Dr. Power Covarrubias CBC AUTO DIFFon 04-09-2022 BASO # 0.1 103/ul Normal 0.0-0.1 The [facility] Comment on above: Performed By: #### D ATCBC #### [facility] [address] [place] [address] Dr. Power Covarrubias Basophils/100 WBC (Bld) 1.0 % Normal 0.2-2.0 [facility] Comment on above: Performed By: #### D ATCBC #### [facility] [address] [place] [address] Dr. Power Covarrubias EO # 0.2 103/ul Normal 0.0-0.7 [facility] Comment on above: Performed By: #### D ATCBC #### [facility] [address] [place] [address] Dr. Power Covarrubias Eosinophils/100 WBC (Bld) 3.7 % Normal 0.9-7.0 [facility] Comment on above: Performed By: #### D ATCBC #### [facility] [address] [place] [address] Dr. Power Covarrubias Erythrocyte distribution width (RBC) [Ratio] 13.3 % Normal 11.0-15.0 [facility] Comment on above: Performed By: #### D ATCBC #### [facility] [address] [place] [address] Dr. Power Covarrubias Hematocrit (Bld) [Volume fraction] 37.8 % Critically low 42.0-54.0 [facility] Comment on above: Performed By: #### D ATCBC #### [facility] [address] [place] [address] Dr. Power Covarrubias Hemoglobin (Bld) [Mass/Vol] 12.4 g/dL Critically low 14.0-18.0 [facility] Comment on above: Performed By: #### D ATCBC #### [facility] [address] [place] [address] Dr. Power Covarrubias IG # 0.01 10e3/ul Normal 0.00-0.03 [facility] Comment on above: Performed By: #### D ATCBC #### [facility] [address] [address] [address] Power Covarrubias IG % 0.2 % Normal 0.0-0.5 [facility] Comment on above: Performed By: #### D ATCBC #### [facility] [address] [place] [address] Dr. Power Covarrubias LYMPH # 1.0 103/ul Critically low 1.2-3.8 [facility] Comment on above: Performed By: #### D ATCBC #### [facility] [address] [place] [address] Dr. Power Covarrubias Lymphocytes/100 WBC (Bld) 19.0 % Critically low 20.5-60.0 [facility] Comment on above: Performed By: #### D ATCBC #### [facility] [address] [place] [address] Dr. Power Covarrubias MCH (RBC) [Entitic mass] 30.9 pg Normal 25.9-34.0 [facility] Comment on above: Performed By: #### D ATCBC #### [facility] [address] [place] [address] Dr. Power Covarrubias MCHC (RBC) [Mass/Vol] 32.8 g/dL Normal 29.9-35.2 [facility] Comment on above: Performed By: #### D ATCBC #### [facility] [address] [place] [address] Dr. Power Covarrubias MCV (RBC) [Entitic vol] 94.3 fL Critically high 80.0-94.0 [facility] Comment on above: Performed By: #### D ATCBC #### [facility] [address] [place] [address] Dr. Power Covarrubias MONO # 0.5 103/ul Normal 0.3-0.8 [facility] Comment on above: Performed By: #### D ATCBC #### [facility] [address] [place] [address] Dr. Power Covarrubias Monocytes/100 WBC (Bld) 9.4 % Normal 1.7-12.0 [facility] Comment on above: Performed By: #### D ATCBC #### [facility] [address] [address] [address] Power Covarrubias NEUT # 3.4 103/ul Normal 1.4-6.5 [facility] Comment on above: Performed By: #### D ATCBC #### [facility] [address] [address] [address] Power Covarrubias Neutrophils/100 WBC (Bld) 66.7 % Normal 43.0-75.0 [facility] Comment on above: Performed By: #### D ATCBC #### [facility] [address] [address] [address] Power Covarrubias Platelet mean volume (Bld) [Entitic vol] 9.9 fL Normal 9.5-13.5 [facility] Comment on above: Performed By: #### D ATCBC #### [facility] [address] [address] [address] Power Covarrubias PLT 205 103/ul Normal 150-450 [facility] Comment on above: Performed By: #### D ATCBC #### [facility] [address] [address] [address] Power Covarrubias RBC 4.01 106/ul Critically low 4.70-6.10 [facility] Comment on above: Performed By: #### D ATCBC #### [facility] [address] [address] [address] Power Covarrubias WBC 5.1 103/ul Normal 4.0-11.0 [facility] Comment on above: Performed By: #### D ATCBC #### [facility] [address] [address] [address] Power Covarrubias BRE- BMP WITH LIPIDon 2021 Anion gap [Moles/Vol] 9.5 mmol/L Normal [facility] Comment on above: Performed By: #### D ATLIPI, DATPSA, DATBMP #### [facility] [address] [address] [address] Power Covarrubias Calcium [Mass/Vol] 9.0 mg/dL Normal 8.5-10.1 [facility] Comment on above: Performed By: #### D ATLIPI, DATPSA, DATBMP #### [facility] [address] [address] [address] Power Covarrubias Chloride [Moles/Vol] 108 mmol/L Critically high 98-107 [facility] Comment on above: Performed By: #### D ATLIPI, DATPSA, DATBMP #### [facility] [address] [address] [address] Power Covarrubias Cholesterol [Mass/Vol] 114 mg/dL Normal <=200 [facility] Comment on above: Performed By: #### D ATLIPI, DATPSA, DATBMP #### [facility] [address] [place] [address] Dr. Power Covarrubias Cholesterol in HDL [Mass/Vol] 49 mg/dL Normal 40-60 [facility] Comment on above: Performed By: #### D ATLIPI, DATPSA, DATBMP #### [facility] [address] [place] [address] Dr. Power Covarrubias Cholesterol in LDL [Mass/Vol] 50.4 mg/dL Normal [facility] Comment on above: Performed By: #### D ATLIPI, DATPSA, DATBMP #### [facility] [address] [place] [address] Dr. Power Covarrubias CO2 [Moles/Vol] 28.3 mmol/L Normal 21.0-32.0 [facility] Comment on above: Performed By: #### D ATLIPI, DATPSA, DATBMP #### [facility] [address] [place] [address] Dr. Power Covarrubias Creatinine [Mass/Vol] 0.88 mg/dL Normal 0.70-1.30 [facility] Comment on above: Performed By: #### D ATLIPI, DATPSA, DATBMP #### [facility] [address] [place] [address] Dr. Power Covarrubias EGFR-AF MONGOLIAN >60 Normal >=60 [facility] Comment on above: Performed By: #### D ATLIPI, DATPSA, DATBMP #### [facility] [address] [address] [address] Power Covarrubias EGFR-NON AF MONGOLIAN >60 Normal >=60 [facility] Comment on above: Performed By: #### D ATLIPI, DATPSA, DATBMP #### [facility] [address] [address] [address] Power Covarrubias Glucose [Mass/Vol] 107 mg/dL Critically high 74-106 T [facility] Comment on above: Performed By: #### D ATLIPI, DATPSA, DATBMP #### [facility] [address] [address] [address] Power Covarrubias HDL NORMAL > or = 60 mg/dl - LO W CARDIOVASCULAR RISK <40 mg/dl - HIGH CARDIOVASCULAR RISK Normal [facility] Comment on above: Performed By: #### D ATLIPI, DATPSA, DATBMP #### [facility] [address] [address] [address] Power Covarrubias LDL CALC NORMAL SEE BELOW Normal [facility] Comment on above: Result Comment: <100 mg/dl OPTIMAL 100 - 129 mg/dl NEAR OR ABOVE OPTIMAL 130 - 159 mg/dl BORDERLINE HIGH 160 - 189 mg/dl HIGH >190 mg/dl VERY HIGH Performed By: #### D ATLIPI, DATPSA, DATBMP #### [facility] [address] [address] [address] Power Covarrubias Potassium [Moles/Vol] 3.8 mmol/L Normal 3.5-5.1 [facility] Comment on above: Performed By: #### D ATLIPI, DATPSA, DATBMP #### [facility] [address] [address] [address] Power Covarrubias Sodium [Moles/Vol] 142 mmol/L Normal 136-145 [facility] Comment on above: Performed By: #### D ATLIPI, DATPSA, DATBMP #### [facility] [address] [address] [address] Power Covarrubias Triglyceride [Mass/Vol] 73 mg/dL Normal <=150 [facility] Comment on above: Performed By: #### D ATLIPI, DATPSA, DATBMP #### [facility] [address] [address] [address] Power Covarrubias Urea nitrogen [Mass/Vol] 12.0 mg/dL Normal 7.0-18.0 [facility] Comment on above: Performed By: #### D ATLIPI, DATPSA, DATBMP #### [facility] [address] [address] [address] Power Covarrubias Urea nitrogen/Creatinine [Mass ratio] 13.6 mg/mg Normal [facility] Comment on above: Performed By: #### D ATLIPI, DATPSA, DATBMP #### [facility] [address] [address] [address] Power Covarrubias VLDL CALC 14.6 mg/dL Normal [facility] Comment on above: Performed By: #### D ATLIPI, DATPSA, DATBMP #### [facility] [address] [address] [address] Power Covarrubias Cardiovascular Lab Reporton 07-03-2020 Cardiovascular Lab Report [facility] Patient Name: Oscar Cox [facility] MR #: [id number] Physician: Shiloh Hester Department of M.D. Medicine Service Date: 07/03/2020 Division of Birthdate: 1945 Cardiology Room #: Adult Cardiovascular Services [place] [address] Cardiovascular Laboratory Report FINAL IMPRESSIONS: 1. Lwkr-lf-mcfgdozb 3-vessel coronary artery disease. 2. Qbaw-rw-hdqcyfmc left main coronary artery disease that appears [...] Follow up with Dr. Hester in the [facility] in the next 1 to 2 [...] to access the left radial artery. A 6-Occitan glide sheath was inserted without difficulty. Resistance [...] Hester M.D. Date Trans: 07/03/2020 02:42 P/anibal [id number] cc: Neo Gould M.D. [address], [facility] [place] [address] [facility] Vital Signs Date Time Vital Sign Value Performing Clinician Luis Fernandoi shantell 03-28-2023 14:23-0400 Blood Pressure Location Zhang DENISE [facility] 03-28-2023 14:23-0400 Diastolic blood pressure 60 mm[Hg] Zhang DENISE [facility] 03-28-2023 14:23-0400 Heart rate 60 /min Zhang DENISE [facility] 03-28-2023 14:23-0400 Respiratory rate 16 /min Zhang DENISE [facility] 03-28-2023 14:23-0400 Systolic blood pressure 116 mm[Hg] [facility] Date Encounter Type Care Provider Facility Start: 04-02-2024 End: 04-02-2024 ambulatory TINY TRAVIS Not Available Start: 03-19-2024 End: 03-19-2024 ambulatory Zhang DENISE Facility:[facility] Start: 03-05-2024 End: 03-05-2024 ambulatory FELICIA TAPIA [facility] Start: 02-19-2024 End: 02-19-2024 ambulatory [facility] Start: 12-13-2023 End: 12-13-2023 ambulatory [facility] Start: 11-27-2023 End: 11-27-2023 [facility] Start: 09-13-2023 ambulatory Ghislaine Morales Facility:[facility] [place] Start: 06-15-2023 ambulatory Zhang DENISE Facility:[facility] Start: 06-01-2023 End: 06-01-2023 [facility] Start: 05-09-2023 ambulatory Zhang DENISE Facility :[facility] [place] Start: 04-26-2023 End: 04-27-2023 ambulatory Zhang DENISE Facility:[id number] Start: 03-28-2023 End: 03-29-2023 ambulatory Zhang DENISE Facility:[facility] [place] Start: 03-28-2023 End: 03-28-2023 Patient encounter procedure Zhang DENISE [facility] Start: 03-01-2023 End: 03-02-[address] NONE LISTED REQUEST Facility:[facility] Start: 12-10-2022 End: 12-11-[address] NEO GOULD . Facility:[facility] Start: 08-31-2022 End: 09-01-2022 ambulatory NONE LISTED REQUEST Facility:[facility] Start: 06-29-2022 End: 06-30-2022 ambulatory PEBBLES WOODARD Facility:[facility] Start: 04-09-2022 End: 04-10-2022 ambulatory NONE LISTED REQUEST Facility:[facility] Procedures Date Procedure Procedure Detail Performing Clinician Start: 03-05-2024 Follow-up visit Follow-up FELICIA TAPIA Start: 03-01-2023 PSA screening PEBBLES GORDON Comment on above: Performed By: #### D ATLIPI, DATPSA, DATBMP #### [facility] [address] [place], [place] [address] Dr. Power Covarrubias Start: 08-31-2022 PSA screening PEBBLES B OES Comment on above: Performed By: #### D ATLIPI, DATPSA, DATBMP #### [facility] [address] [place], [place] [address] Dr. Power Covarrubias Start: 06-29-2022 PSA screening PEBBLES B OES Comment on above: Performed By: #### P SASC #### [facility] [id number] Power Covarrubias Start: 10-04-2017 Colonoscopy Zhang NG Excision of lumbar intervertebral disc Zhang HOWIE Comment on above: L5 Repair of hip Zhang DENISE Immunizations Immunization Date Immunization Notes Care Provider Fa cili 04-29-2021 SARS-CoV-2 (COVID-19 ) mRNA BNT-162b2 vax Zhang NILL [facility] 04-09-2021 SARS-CoV-2 (COVID-19 ) mRNA BNT-162b2 vax Zhang NILL [facility] Payers Date Payer Category Payer Self-pay 1958 Unknown [id number] 1945 Unknown [id number] 2.16.84 [id number] 1945 Unknown [id number] 2.16.84 [id number] 1945 Unknown [id number] 2.16.8 [id number] 1945 Unknown [id number] 2.16.8 [id number] 1945 Unknown [id number] 2.16.8 [id number] 1945 Unknown [id number] 2.16.8 [id number] 1945 Unknown [id number] 2.16.8 [id number] 1945 Unknown [id number] 2.16.8 [id number] 1945 Unknown [id number] 2.16.84 [id number] 1945 Unknown [id number] 2.16.84 [id number] Unknown [id number] 2.16.84 [id number] Unknown [id number] 2.16.84 [id number] Unknown [id number] 2.16.84 [id number] Social History Date Type Detail Facility Start: 03-28-2023 Tobacco smoking status Never s moked tobacco (finding) [facility] Tobacco smoking status Never [facility] Sex Assigned At Male [facility] Functional Status Date Assessment Result Facility 03-28-2023 Functional Status N/A [facility] Progress note 02-19-2024 Note Date & Type Note Facility 02-19-2024 Note [facility] Cardiology Clinic Note Chief Complaint: Patient here for follow up [facility] for elevated troponin and bradycardia. He [...] 07/03/2020 Cardiovascular Laboratory Report FINAL IMPRESSIONS: 1. Zqbg-px-grqfnqvn 3-vessel coronary artery disease. 2. Oykz-qq-zahpjipd left main coronary artery disease that appears unchanged from prior angiography. 3. Normal global left ventricular (more content not included)... [facility] Progress note 12-13-2023 Note Date & Type Note Facility 12-13-2023 Note [facility] Cardiology Clinic Note Chief Complaint: Patient here [...] 07/03/2020 Cardiovascular Laboratory Report FINAL IMPRESSIONS: 1. Puob-uv-mubbhfqw 3-vessel coronary artery disease. 2. Cmvr-ip-mzegstpi left main coronary artery disease that appears [...] atrium is sever (more content not included)... [facility] Progress note 11-27-2023 Note Date & Type Note Facility 11-27-2023 Note [facility] Subjective Oscar Cox is [...] Cognitive communication deficit Atherosclerotic heart disease of [place] coronary artery without angina pectoris Diarrhea Hypokalemia [...] discuss left atrial appendage closure. 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 He has history [...] Latest known visit (more content not included)... [facility] Progress note 06-01-2023 Note Date & [...] month ago He was admitted 04/28-05/02 at [facility] following the last fall and has been [...] bradycardia during ho (more content not included)... [facility] Clinical Note 03-28-2023 Note Date & [...] informed consent obtained. 2. Chronic anticoagulation (Z79.01: [facility] (current) use of anticoagulants) hold Eliquis 2 [...] SARS-CoV-2 (COVID-19) mRNA BNT-162b2 vax 04/09/2021 Recorded [facility] Comment on above: Result Comment: Elec tronically Signed By: HOWIE LOPEZ, Zhang Yan\Date and Time Signed: 03/28/23 20:17 EDT Evaluation + Plan note Note Date & Type Note Facility Evaluation + Plan note No data available for this section [facility] Discharge instructions Note Date & Type Note Facility Hospital Discharge instructions No data available for this section [facility] Progress note Note Date & Type Note Facility Progress note No data available for this section [facility] Summary Purpose Family History No Family History [...] and content) DATE CREATED AUTHOR 07/07/2020 [facility] DATE CREATED AUTHOR AUTHOR'S ORGANIZ ATION 03/02/2023 [facility] DATE CREATED AUTHOR AUTHOR'S ORGANIZ ATION 03/08/2024 [facility] DATE CREATED AUTHOR AUTHOR'S ORGANIZ ATION 03/12/2024 [facility] DATE CREATED AUTHOR AUTHOR'S ORGANIZ ATION 04/04/2024 [facility] EPIC DATE CREATED AUTHOR AUTHOR'S ORGANIZ ATION 04/09/2024 [facility] Patient Care team informatio n (unrecognized section and content) Personnel Name: Neo Gould MD Address: Address: [address] [place], [place] [address] [[email or web address]] FOR RECORDS PERTAINING TO PATIENTS WHO ARE [...] BE BASED ON THE PRIMARY CLINICAL RECORDS. [facility]. provides no warranty or guarantee of the accuracy or completeness of information in this document.
== END 2024-05-14 14:44 | disposition home or self-care (01) ==
LOC: PM 14:43
PROVIDERS: Visit Provider Anesthesiology Pain Medicine
DX: M47.812 Spondylosis without myelopathy or radiculopathy, cervical region (principal); M54.2 Cervicalgia; M79.18 Myalgia, other site
CPT/HCPCS: G0463

== ENCOUNTER 2024-06-27 14:06 | Outpatient (OUT) | payer MEDICARE, SELFPAY ==
--- OUTSIDE RECORDS SUMMARY | 2024-06-27 14:29 | XMS_ITS | CCD ---
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 Name Role Phone PEBBLES WOODARD Primary Care [...] Attending Unavailable Neo Gould Primary Care Physician FELICIA TAPIA Attending Unavailable NEO GOULD Referring [...] Medication Allergies] Propensity to adverse reactions (disorder) [facility] Repository Medications Current Medications Medication Drug [...] Coronary arteriosclerosis; 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: [Atherosclerotic heart disease of [place] coronary artery without angina pectoris] Onset: 12-13-2023 03-15-2023 Chronic Disorders of lipid metabolism (4 sources) Hyperlipidemia, unspecified; 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: [HYPERLIPIDEMIA UNSPECIFIED] Onset: 06-29-2022 Chronic Essential hypertension (3 sources) Hypertensive disorder; 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: [Essential (primary) hypertension] Onset: 05-11-2023 03-15-2023 Chronic Osteoarthritis (4 sources) Primary generalized (osteo)arthritis; 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: [PRIMARY GENERALIZED OSTEOARTHRITIS] Onset: 12-10-2022 Chronic Other aftercare (1 source) 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 Normal [facility] 36on 03-07-2024 36 PT INFIRMED AND ORDE R SENT Normal [facility] Office Visiton 02-19-2024 Follow-up visit [id number] Oscar Cox 1945 M Date Provider Department Center 02/19/2024 SHILOH SANTACRUZ Family History Family history unknown: Yes Level of Service:17388 [place] OFFICE/OUTPATIENT ESTABLISHED LOW MDM 20 MIN Normal [facility] Office Visiton 12-13-2023 Follow-up visit [id number] Oscar Cox 1945 Date Provider Department Center 12/13/2023 271-DENISHUNGUANAKITOJaclynSHILOH ABILIO [facility] Family History Family history unknown: Yes Level of Service:25529 [place] OFFICE/OUTPATIENT ESTABLISHED MOD MDM 30 MIN [facility] Office Visiton 11-27-2023 Follow-up visit [id number] Oscar Cox 1945 [facility] Provider Department Center 11/27/2023 367-JONATHAN HARRISON ABILIO [facility] Family History Family history unknown: Yes Level of Service:14336 [place] OFFICE/OUTPATIENT ESTABLISHED MOD MDM 30 MIN Normal [facility] Assisted Recordson 07-04 Assisted Records [id number] CD:127 [facility] 37on 06-01-2023 37 -Reduce Lisinopril t o 10 mg once a day -Will get an ultrasound of your heart -Continue Lasix 40 mg twice a day -Follow-up with Dr. Harrison to discuss watchman -Start Eliquis 2.5 mg twice a day and monitor for more bleeding [facility] Office Visiton 06-01-2023 Follow-up visit [id number] Oscar Cox 1945 [facility] Provider Department Center 06/01/2023 72219-PGAAWAKIRANATOLIY NOVAK ABILIO [facility] Family History Family history unknown: Yes Level of Service:08407 [place] OFFICE/OUTPATIENT ESTABLISHED MOD MDM 30-39 MIN Reason for Visit and Comments: Follow-up [040340] - Concerns due to increased swelling bilateral legs and also having blood in urine - Eliquis is being held at the moment Normal [facility] Orders Onlyon 06-01-2023 Orders Only [id number] Oscar Cox 1945 [facility] Provider Department Center 06/01/2023 Erika-ELVIN RIVAS ABILIO [facility] Family History Family history unknown: Yes [facility] Reminderson 05-10-2023 Reminders - From: Pennie Bose LPN To: GSN - Clinical; Sent: 05/10/2023 10:13:27 EDT Show up: 03/27/2028 07:00:00 EDT Subject: colonoscopy recall Due Date/Time: 04/26/2028 07:00:00 EDT Reminder/Recall Patient due for surveillance colonoscopy 04/26/2028. Normal [facility] Pathology Noteon 05-03-2023 Pathology Note [id number] 0CD:127 Normal [facility] Outside Colonoscopyon 2022 Outside Colonoscopy [id number] 0CD:127 [facility] Pre-Certification Formon Pre-Certification Form [id number]. 00CD:127 [facility] Consent for Procedure/Surger yon 03-29-2023 Consent for Procedure/Surgery [id number] 0CD:127 [facility] Ambulatory Visit Summaryon 0 03-28-2023 [...] history of colonic polyps Premature beats Normal [facility] CBC AUTO DIFFon 03-01-2023 BASO # 0.0 103/ul Normal 0.0-0.[address] [facility] Comment on above: Performed By: #### D ATCBC #### [facility] [address] [place] [address] Dr. Power Covarrubias Basophils/100 WBC (Bld) 0.7 % Normal 0.2-2.0 [facility] Comment on above: Performed By: #### D ATCBC #### [facility] [address] [address] [address] Power Covarrubias EO # 0.1 103/ul Normal 0.0-0.7 [facility] Comment on above: Performed By: #### D ATCBC #### [facility] [address] [place] [address] Dr. Power Covarrubias Eosinophils/100 WBC (Bld) 1.8 % Normal 0.9-7.0 [facility] Comment on above: Performed By: #### D ATCBC #### [facility] [address] [place] [address] Dr. Power Covarrubias Erythrocyte distribution width (RBC) [Ratio] 13.3 % Normal 11.0-15.[address] [facility] Comment on above: Performed By: #### D ATCBC #### [facility] [address] [place] [address] Dr. Power Covarrubias Hematocrit (Bld) [Volume fraction] 40.7 % Critically low 42.0-54.[address] [facility] Comment on above: Performed By: #### D ATCBC #### [facility] [address] [place] [address] Dr. Power Covarrubias Hemoglobin (Bld) [Mass/Vol] 12.9 g/dL Critically low 14.0-18.[address] [facility] Comment on above: Performed By: #### D ATCBC #### [facility] [address] [place] [address] Dr. Power Covarrubias IG # 0.01 10e3/ul Normal 0.00-0.[address] [facility] Comment on above: Performed By: #### D ATCBC #### [facility] [address] [place] [address] Dr. Power Covarrubias IG % 0.2 % Normal 0.0-0.[address] [facility] Comment on above: Performed By: #### D ATCBC #### [facility] [address] [place] [address] Dr. Power Covarrubias LYMPH # 0.7 103/ul Critically low 1.2-3.8 [facility] Comment on above: Performed By: #### D ATCBC #### [facility] [address] [place] [address] Dr. Power Covarrubias Lymphocytes/100 WBC (Bld) 16.3 % Critically low 20.5-60.0 [facility] Comment on above: Performed By: #### D ATCBC #### [facility] [address] [place] [address] Dr. Power Covarrubias MCH (RBC) [Entitic mass] 29.6 pg Normal 25.9-34.[address] [facility] Comment on above: Performed By: #### D ATCBC #### [facility] [address] [address] [address] Power Covarrubias MCHC (RBC) [Mass/Vol] 31.7 g/dL Normal 29.9-35.[address] [facility] Comment on above: Performed By: #### D ATCBC #### [facility] [address] [place] [address] Dr. Power Covarrubias MCV (RBC) [Entitic vol] 93.3 fL Normal 80.0-94.[address] [facility] Comment on above: Performed By: #### D ATCBC #### [facility] [address] [place] [address] Dr. Power Covarrubias MONO # 0.3 103/ul Normal 0.3-0.[address] [facility] Comment on above: Performed By: #### D ATCBC #### [facility] [address] [place] [address] Dr. Power Covarrubias Monocytes/100 WBC (Bld) 7.5 % Normal 1.7-12.[address] [facility] Comment on above: Performed By: #### D ATCBC #### [facility] [address] [place] [address] Dr. Power Covarrubias NEUT # 3.4 103/ul Normal 1.4-6.[address] [facility] Comment on above: Performed By: #### D ATCBC #### [facility] [address] [place] [address] Dr. Power Covarrubias Neutrophils/100 WBC (Bld) 73.5 % Normal 43.0-75.0 [facility] Comment on above: Performed By: #### D ATCBC #### [facility] [address] [place] [address] Dr. Power Covarrubias Platelet mean volume (Bld) [Entitic vol] 9.9 fL Normal 9.5-13.[address] [facility] Comment on above: Performed By: #### D ATCBC #### [facility] [address] [place] [address] Dr. Power Covarrubias PLT 198 103/ul Normal 150-450 [facility] Comment on above: Performed By: #### D ATCBC #### [facility] [address] [address] [address] Power Covarrubias RBC 4.36 106/ul Critically low 4.70-6.10 [facility] Comment on above: Performed By: #### D ATCBC #### [facility] [address] [address] [address] Power Covarrubias WBC 4.6 103/ul Normal 4.0-11.[address] [facility] Comment on above: Performed By: #### D ATCBC #### [facility] [address] [address] [address] Power Covarrubias BRE - LIPID PROFILEon 2022 CHOL-HDL RATIO NORM SEE BELOW Normal [facility] Comment on above: Result Comment: 3.3 - 4.4 LOW RISK 4.4 - 7.1 AVERAGE RISK 7.1 - 11.0 MODERATE RISK >11.0 HIGH RISK Performed By: #### D ATLIPI, DATPSA, DATBMP #### [facility] [address] [place] [address] Dr. Power Covarrubias Cholesterol.total/Ch olesterol in HDL [Mass ratio] 2.2 {ratio} Normal [facility] Comment on above: Performed By: #### D ATLIPI, DATPSA, DATBMP #### [facility] [address] [place] [address] Dr. Power Covarrubias BRE- BMP WITH LIPIDon 2022 Anion gap [Moles/Vol] 12.8 mmol/L Normal [facility] Comment on above: Performed By: #### D ATLIPI, DATPSA, DATBMP #### [facility] [address] [address] [address] Power Covarrubias Calcium [Mass/Vol] 9.3 mg/dL Normal 8.5-10.1 [facility] Comment on above: Performed By: #### D ATLIPI, DATPSA, DATBMP #### [facility] [address] [place] [address] Dr. Power Covarrubias Chloride [Moles/Vol] 107 mmol/L Normal 98-107 [facility] Comment on above: Performed By: #### D ATLIPI, DATPSA, DATBMP #### [facility] [address] [place] [address] Dr. Power Covarrubias Cholesterol [Mass/Vol] 123 mg/dL Normal <=200 [facility] Comment on above: Performed By: #### D ATLIPI, DATPSA, DATBMP #### [facility] [address] [address] [address] Power Covarrubias Cholesterol in HDL [Mass/Vol] 56 mg/dL Normal 40-60 [facility] Comment on above: Performed By: #### D ATLIPI, DATPSA, DATBMP #### [facility] [address] [place] [address] Dr. Power Covarrubias Cholesterol in LDL [Mass/Vol] 52.0 mg/dL Normal [facility] Comment on above: Performed By: #### D ATLIPI, DATPSA, DATBMP #### [facility] [address] [place] [address] Dr. Power Covarrubias CO2 [Moles/Vol] 28.7 mmol/L Normal 21.0-32.0 [facility] Comment on above: Performed By: #### D ATLIPI, DATPSA, DATBMP #### [facility] [address] [place] [address] Dr. Power Covarrubias Creatinine [Mass/Vol] 0.93 mg/dL Normal 0.70-1.30 [facility] Comment on above: Performed By: #### D ATLIPI, DATPSA, DATBMP #### [facility] [address] [place] [address] Dr. Power Covarrubias EGFR-AF [place] >60 Normal >=60 [facility] Comment on above: Performed By: #### D ATLIPI, DATPSA, DATBMP #### [facility] [address] [place] [address] Dr. Power Covarrubias EGFR-NON AF [place] >60 Normal >=60 [facility] Comment on above: Performed By: #### D ATLIPI, DATPSA, DATBMP #### [facility] [address] [address] [address] Power Covarrubias Glucose [Mass/Vol] 97 mg/dL Normal 74-106 [facility] Comment on above: Performed By: #### D ATLIPI, DATPSA, DATBMP #### [facility] [address] [address] [address] Power Covarrubias HDL NORMAL > or = 60 mg/dl - LO W CARDIOVASCULAR RISK <40 mg/dl - HIGH CARDIOVASCULAR RISK Normal [facility] Comment on above: Performed By: #### D ATLIPI, DATPSA, DATBMP #### [facility] [address] [address] [address] Power Covarrubias LDL CALC NORMAL SEE BELOW Normal [facility] Comment on above: Result Comment: <100 mg/dl OPTIMAL 100 - 129 mg/dl NEAR OR ABOVE OPTIMAL 130 - 159 mg/dl BORDERLINE HIGH 160 - 189 mg/dl HIGH >190 mg/dl VERY HIGH Performed By: #### D ATLIPI, DATPSA, DATBMP #### [facility] [address] [address] [address] Power Covarrubias Potassium [Moles/Vol] 3.5 mmol/L Normal 3.5-5.[address] [facility] Comment on above: Performed By: #### D ATLIPI, DATPSA, DATBMP #### [facility] [address] [address] [address] Power Covarrubias Sodium [Moles/Vol] 145 mmol/L Normal 136-145 [facility] Comment on above: Performed By: #### D ATLIPI, DATPSA, DATBMP #### [facility] [address] [address] [address] Power Covarrubias Triglyceride [Mass/Vol] 75 mg/dL Normal <=[address] [facility] Comment on above: Performed By: #### D ATLIPI, DATPSA, DATBMP #### [facility] [address] [address] [address] Power Covarrubias Urea nitrogen [Mass/Vol] 11.0 mg/dL Normal 7.0-18.[address] [facility] Comment on above: Performed By: #### D ATLIPI, DATPSA, DATBMP #### [facility] [address] [place] [address] Dr. Power Covarrubias Urea nitrogen/Creatinine [Mass ratio] 11.8 mg/mg Normal [facility] Comment on above: Performed By: #### D ATLIPI, DATPSA, DATBMP #### [facility] [address] [place] [address] Dr. Power Covarrubias VLDL CALC 15.0 mg/dL Normal [facility] Comment on above: Performed By: #### D ATLIPI, DATPSA, DATBMP #### [facility] [address] [place] [address] Dr. Power Covarrubias GLYCOHEMOGLOBIN A1Con 2022 ADA RECOMMENDATION SEE BELOW Normal [facility] Comment on above: Result Comment: ADA RECOMMENDED LIMIT 4.0 - 6.0 ADA THERAPEUTIC TARGET < 7.0 ACTION SUGGESTED > 7.0 Performed By: #### D ATLIPI, DATPSA, DATBMP #### [facility] [address] [place] [address] Dr. Power Covarrubias Glucose [Mass/Vol] 105 mg/dL Normal [facility] Comment on above: Performed By: #### D ATLIPI, DATPSA, DATBMP #### [facility] [address] [place] [address] Dr. Power Covarrubias HbA1c (Bld) [Mass fraction] 5.3 % Normal 4.5-6.[address] [facility] Comment on above: Performed By: #### D ATLIPI, DATPSA, DATBMP #### [facility] [address] [place] [address] Dr. Power Covarrubias CBC AUTO DIFFon 12-10-2022 BASO # 0.0 103/ul Normal 0.0-0.[address] [facility] Comment on above: Performed By: #### D ATLIPI, DATPSA, DATBMP #### [facility] [address] [place] [address] Dr. Power Covarrubias Basophils/100 WBC (Bld) 0.4 % Normal 0.2-2.0 [facility] Comment on above: Performed By: #### D ATLIPI, DATPSA, DATBMP #### [facility] [address] [place] [address] Dr. Power Covarrubias EO # 0.2 103/ul Normal 0.0-0.7 [facility] Comment on above: Performed By: #### D ATLIPI, DATPSA, DATBMP #### [facility] [address] [place] [address] Dr. Power Covarrubias Eosinophils/100 WBC (Bld) 3.6 % Normal 0.9-7.0 [facility] Comment on above: Performed By: #### D ATLIPI, DATPSA, DATBMP #### [facility] [address] [place] [address] Dr. Power Covarrubias Erythrocyte distribution width (RBC) [Ratio] 13.5 % Normal 11.0-15.[address] [facility] Comment on above: Performed By: #### D ATLIPI, DATPSA, DATBMP #### [facility] [address] [place] [address] Dr. Power Covarrubias Hematocrit (Bld) [Volume fraction] 37.5 % Critically low 42.0-54.0 [facility] Comment on above: Performed By: #### D ATLIPI, DATPSA, DATBMP #### [facility] [address] [place] [address] Dr. Power Covarrubias Hemoglobin (Bld) [Mass/Vol] 12.0 g/dL Critically low 14.0-18.0 [facility] Comment on above: Performed By: #### D ATLIPI, DATPSA, DATBMP #### [facility] [address] [place] [address] Dr. Power Covarrubias IG # 0.02 10e3/ul Normal 0.00-0.03 [facility] Comment on above: Performed By: #### D ATLIPI, DATPSA, DATBMP #### [facility] [address] [place] [address] Dr. Power Covarrubias IG % 0.4 % Normal 0.0-0.[address] [facility] Comment on above: Performed By: #### D ATLIPI, DATPSA, DATBMP #### [facility] [address] [place] [address] Dr. Power Covarrubias LYMPH # 0.9 103/ul Critically low 1.2-3.[address] [facility] Comment on above: Performed By: #### D ATLIPI, DATPSA, DATBMP #### [facility] [address] [place] [address] Dr. Power Covarrubias Lymphocytes/100 WBC (Bld) 17.7 % Critically low 20.5-60.[address] [facility] Comment on above: Performed By: #### D ATLIPI, DATPSA, DATBMP #### [facility] [address] [place] [address] Dr. Power Covarrubias MANUAL DIFF REQ NO Normal [facility] Comment on above: Performed By: #### D ATLIPI, DATPSA, DATBMP #### [facility] [address] [place] [address] Dr. Power Covarrubias MCH (RBC) [Entitic mass] 29.7 pg Normal 25.9-34.[address] [facility] Comment on above: Performed By: #### D ATLIPI, DATPSA, DATBMP #### [facility] [address] [place] [address] Dr. Power Covarrubias MCHC (RBC) [Mass/Vol] 32.0 g/dL Normal 29.9-35.2 [facility] Comment on above: Performed By: #### D ATLIPI, DATPSA, DATBMP #### [facility] [address] [place] [address] Dr. Power Covarrubias MCV (RBC) [Entitic vol] 92.8 fL Normal 80.0-94.[address] [facility] Comment on above: Performed By: #### D ATLIPI, DATPSA, DATBMP #### [facility] [address] [place] [address] Dr. Power Covarrubias MONO # 0.6 103/ul Normal 0.3-0.8 [facility] Comment on above: Performed By: #### D ATLIPI, DATPSA, DATBMP #### [facility] [address] [place] [address] Dr. Power Covarrubias Monocytes/100 WBC (Bld) 11.1 % Normal 1.7-12.0 [facility] Comment on above: Performed By: #### D ATLIPI, DATPSA, DATBMP #### [facility] [address] [place] [address] Dr. Power Covarrubias NEUT # 3.6 103/ul Normal 1.4-6.5 [facility] Comment on above: Performed By: #### D ATLIPI, DATPSA, DATBMP #### [facility] [address] [place] [address] Dr. Power Covarrubias Neutrophils/100 WBC (Bld) 66.8 % Normal 43.0-75.0 [facility] Comment on above: Performed By: #### D ATLIPI, DATPSA, DATBMP #### [facility] [address] [place] [address] Dr. Power Covarrubias Platelet mean volume (Bld) [Entitic vol] 9.8 fL Normal 9.5-13.[address] [facility] Comment on above: Performed By: #### D ATLIPI, DATPSA, DATBMP #### [facility] [address] [place] [address] Dr. Power Covarrubias PLT 199 103/ul Normal 150-450 [facility] Comment on above: Performed By: #### D ATLIPI, DATPSA, DATBMP #### [facility] [address] [place] [address] Dr. Power Covarrubias RBC 4.04 106/ul Critically low 4.70-6.10 [facility] Comment on above: Performed By: #### D ATLIPI, DATPSA, DATBMP #### [facility] [address] [place] [address] Dr. Power Covarrubias WBC 5.3 103/ul Normal 4.0-11.[address] [facility] Comment on above: Performed By: #### D ATLMACK, DATPSA, DATBMP #### [facility] [address] [place] [address] Dr. Power Covarrubias PROF 14(COMP METB)on 023 Albumin [Mass/Vol] 3.3 g/dL Critically low 3.4-5.0 [facility] Comment on above: Performed By: #### C MP #### [facility] [address] [place] [address] Dr. Power Covarrubias Albumin/Globulin [Mass ratio] 0.9 {ratio} Normal [facility] Comment on above: Performed By: #### C MP #### [facility] [address] [place] [address] Dr. Power Covarrubias ALP [Catalytic activity/Vol] 99 U/L Normal 46-[address] [facility] Comment on above: Performed By: #### C MP #### [facility] [address] [place] [address] Dr. Power Covarrubias ALT [Catalytic activity/Vol] 17 U/L Normal 16-[address] [facility] Comment on above: Performed By: #### C MP #### [facility] [address] [place] [address] Dr. Power Covarrubias Anion gap [Moles/Vol] 11.6 mmol/L Normal [facility] Comment on above: Performed By: #### C MP #### [facility] [address] [place] [address] Dr. Power Covarrubias AST [Catalytic activity/Vol] 15 U/L Normal 15-[address] [facility] Comment on above: Performed By: #### C MP #### [facility] [address] [place] [address] Dr. Power Covarrubias Bilirubin [Mass/Vol] 0.6 mg/dL Normal 0.2-1.[address] [facility] Comment on above: Performed By: #### C MP #### [facility] [address] [address] [address] Power Covarrubias Calcium [Mass/Vol] 9.4 mg/dL Normal 8.5-10.1 [facility] Comment on above: Performed By: #### C MP #### [facility] [address] [address] [address] Power Covarrubias Chloride [Moles/Vol] 107 mmol/L Normal 98-[address] [facility] Comment on above: Performed By: #### C MP #### [facility] [address] [place] [address] Dr. Power Covarrubias CO2 [Moles/Vol] 29.2 mmol/L Normal 21.0-32.0 [facility] Comment on above: Performed By: #### C MP #### [facility] [address] [place] [address] Dr. Power Covarrubias Creatinine [Mass/Vol] 0.87 mg/dL Normal 0.70-1.[address] [facility] Comment on above: Performed By: #### C MP #### [facility] [address] [place] [address] Dr. Power Covarrubias EGFR-AF [place]ER >60 Normal >=60 [facility] Comment on above: Performed By: #### C MP #### [facility] [address] [place] [address] Dr. Power Covarrubias EGFR-NON AF [place] >60 Normal >=[address] [facility] Comment on above: Performed By: #### C MP #### [facility] [address] [address] [address] Power Covarrubias Globulin (S) [Mass/Vol] 3.6 g/dL Normal [facility] Comment on above: Performed By: #### C MP #### [facility] [address] [place] [address] Dr. Power Covarrubias Glucose [Mass/Vol] 107 mg/dL Critically high 74-106 [facility] Comment on above: Performed By: #### C MP #### [facility] [address] [place] [address] Dr. Power Covarrubias Potassium [Moles/Vol] 3.8 mmol/L Normal 3.5-5.1 [facility] [facility] Comment on above: Performed By: #### C MP #### [facility] [address] [place] [address] Dr. Power Covarrubias Protein [Mass/Vol] 6.9 g/dL Normal 6.4-8.2 [facility] Comment on above: Performed By: #### C MP #### [facility] [address] [place] [address] Dr. Power Covarrubias Sodium [Moles/Vol] 144 mmol/L Normal 136-145 [facility] Comment on above: Performed By: #### C MP #### [facility] [address] [place] [address] Dr. Power Covarrubias Urea nitrogen [Mass/Vol] 12.0 mg/dL Normal 7.0-18.[address] [facility] Comment on above: Performed By: #### C MP #### [facility] [address] [place] [address] Dr. Power Covarrubias Urea nitrogen/Creatinine [Mass ratio] 13.8 mg/mg Normal [facility] Comment on above: Performed By: #### C MP #### [facility] [address] [place] [address] Dr. Power Covarrubias CBC AUTO DIFFon 08-31-2022 BASO # 0.0 103/ul Normal 0.0-0.[address] [facility] Comment on above: Performed By: #### D ATLIPI DATPSA, DATBMP #### [facility] [address] [place] [address] Dr. Power Covarrubias Basophils/100 WBC (Bld) 0.7 % Normal 0.2-2.[address] [facility] Comment on above: Performed By: #### D ATLIPI, DATPSA, DATBMP #### [facility] [address] [place] [address] Dr. Power Covarrubias EO # 0.2 103/ul Normal 0.0-0.[address] [facility] Comment on above: Performed By: #### D ATLIPI, DATPSA, DATBMP #### [facility] [address] [place] [address] Dr. Power Covarrubias Eosinophils/100 WBC (Bld) 3.5 % Normal 0.9-7.0 [facility] Comment on above: Performed By: #### D ATLIPI, DATPSA, DATBMP #### [facility] [address] [place] [address] Dr. Power Covarrubias Erythrocyte distribution width (RBC) [Ratio] 13.2 % Normal 11.0-15.0 [facility] Comment on above: Performed By: #### D ATLIPI, DATPSA, DATBMP #### [facility] [address] [place] [address] Dr. Power Covarrubias Hematocrit (Bld) [Volume fraction] 39.3 % Critically low 42.0-54.[address] [facility] Comment on above: Performed By: #### D ATLIPI, DATPSA, DATBMP #### [facility] [address] [place] [address] Dr. Power Covarrubias Hemoglobin (Bld) [Mass/Vol] 12.9 g/dL Critically low 14.0-18.[address] [facility] Comment on above: Performed By: #### D ATLIPI, DATPSA, DATBMP #### [facility] [address] [place] [address] Dr. Power Covarrubias IG # 0.02 10e3/ul Normal 0.00-0.03 [facility] Comment on above: Performed By: #### D ATLIPI, DATPSA, DATBMP #### [facility] [address] [place] [address] Dr. Power Covarrubias IG % 0.4 % Normal 0.0-0.5 [facility] Comment on above: Performed By: #### D ATLIPI, DATPSA, DATBMP #### [facility] [address] [place] [address] Dr. Power Covarrubias LYMPH # 0.9 103/ul Critically low 1.2-3.8 [facility] Comment on above: Performed By: #### D ATLIPI, DATPSA, DATBMP #### [facility] [address] [place] [address] Dr. Power Covarrubias Lymphocytes/100 WBC (Bld) 16.4 % Critically low 20.5-60.[address] [facility] Comment on above: Performed By: #### D ATLIPI, DATPSA, DATBMP #### [facility] [address] [place] [address] Dr. Power Covarrubias MCH (RBC) [Entitic mass] 30.7 pg Normal 25.9-34.0 [facility] Comment on above: Performed By: #### D ATLIPI, DATPSA, DATBMP #### [facility] [address] [place] [address] Dr. Power Covarrubias MCHC (RBC) [Mass/Vol] 32.8 g/dL Normal 29.9-35.2 [facility] Comment on above: Performed By: #### D ATLIPI, DATPSA, DATBMP #### [facility] [address] [place] [address] Dr. Power Covarrubias MCV (RBC) [Entitic vol] 93.6 fL Normal 80.0-94.0 [facility] Comment on above: Performed By: #### D ATLIPI, DATPSA, DATBMP #### [facility] [address] [place] [address] Dr. Power Covarrubias MONO # 0.5 103/ul Normal 0.3-0.8 [facility] Comment on above: Performed By: #### D ATLIPI, DATPSA, DATBMP #### [facility] [address] [place] [address] Dr. Power Covarrubias Monocytes/100 WBC (Bld) 9.0 % Normal 1.7-12.0 [facility] Comment on above: Performed By: #### D ATLIPI, DATPSA, DATBMP #### [facility] [address] [place] [address] Dr. Power Covarrubias NEUT # 3.8 103/ul Normal 1.4-6.5 [facility] Comment on above: Performed By: #### D ATLIPI, DATPSA, DATBMP #### [facility] [address] [place] [address] Dr. Power Covarrubias Neutrophils/100 WBC (Bld) 70.0 % Normal 43.0-75.[address] [facility] Comment on above: Performed By: #### D ATLIPI, DATPSA, DATBMP #### [facility] [address] [place] [address] Dr. Power Covarrubias Platelet mean volume (Bld) [Entitic vol] 9.9 fL Normal 9.5-13.[address] [facility] Comment on above: Performed By: #### D ATLIPI, DATPSA, DATBMP #### [facility] [address] [place] [address] Dr. Power Covarrubias PLT 195 103/ul Normal 150-[address] [facility] Comment on above: Performed By: #### D ATLIPI, DATPSA, DATBMP #### [facility] [address] [place] [address] Dr. Power Covarrubias RBC 4.20 106/ul Critically low 4.70-6.10 [facility] Comment on above: Performed By: #### D ATLIPI, DATPSA, DATBMP #### [facility] [address] [place] [address] Dr. Power Covarrubias WBC 5.4 103/ul Normal 4.0-11.[address] [facility] Comment on above: Performed By: #### D ATLIPI, DATPSA, DATBMP #### [facility] [address] [place] [address] Dr. Power Covarrubias BRE- BMP WITH LIPIDon 2021 Anion gap [Moles/Vol] 10.8 mmol/L Normal [facility] Comment on above: Performed By: #### D ATLIPI, DATPSA, DATBMP #### [facility] [address] [place] [address] Dr. Power Covarrubias Calcium [Mass/Vol] 9.3 mg/dL Normal 8.5-10.1 [facility] Comment on above: Performed By: #### D ATLIPI, DATPSA, DATBMP #### [facility] [address] [address] [address] Power Covarrubias Chloride [Moles/Vol] 105 mmol/L Normal 98-107 [facility] Comment on above: Performed By: #### D ATLIPI, DATPSA, DATBMP #### [facility] [address] [address] [address] Power Covarrubias Cholesterol [Mass/Vol] 123 mg/dL Normal <=200 [facility] Comment on above: Performed By: #### D ATLIPI, DATPSA, DATBMP #### [facility] [address] [place] [address] Dr. Power Covarrubias Cholesterol in HDL [Mass/Vol] 51 mg/dL Normal 40-[address] [facility] Comment on above: Performed By: #### D ATLIPI, DATPSA, DATBMP #### [facility] [address] [address] [address] Power Covarrubias Cholesterol in LDL [Mass/Vol] 56.0 mg/dL Normal [facility] Comment on above: Performed By: #### D ATLIPI, DATPSA, DATBMP #### [facility] [address] [address] [address] Power Covarrubias CO2 [Moles/Vol] 28.2 mmol/L Normal 21.0-32.0 [facility] Comment on above: Performed By: #### D ATLIPI, DATPSA, DATBMP #### [facility] [address] [place] [address] Dr. Power Covarrubias Creatinine [Mass/Vol] 0.86 mg/dL Normal 0.70-1.30 [facility] Comment on above: Performed By: #### D ATLIPI, DATPSA, DATBMP #### [facility] [address] [place] [address] Dr. Power Covarrubias EGFR-AF [place]ER >60 Normal >=60 [facility] Comment on above: Performed By: #### D ATLIPI, DATPSA, DATBMP #### [facility] [address] [address] [address] Power Covarrubias EGFR-NON AF [place]ER >60 Normal >=[address] [facility] Comment on above: Performed By: #### D ATLIPI, DATPSA, DATBMP #### [facility] [address] [address] [address] Power Covarrubias Glucose [Mass/Vol] 90 mg/dL Normal 74-106 [facility] Comment on above: Performed By: #### D ATLIPI, DATPSA, DATBMP #### [facility] [address] [address] [address] Power Covarrubias HDL NORMAL > or = 60 mg/dl - LO W CARDIOVASCULAR RISK <40 mg/dl - HIGH CARDIOVASCULAR RISK Normal [facility] Comment on above: Performed By: #### D ATLIPI, DATPSA, DATBMP #### [facility] [address] [address] [address] Power Covarrubias LDL CALC NORMAL SEE BELOW Normal [facility] Comment on above: Result Comment: <100 mg/dl OPTIMAL 100 - 129 mg/dl NEAR OR ABOVE OPTIMAL 130 - 159 mg/dl BORDERLINE HIGH 160 - 189 mg/dl HIGH >190 mg/dl VERY HIGH Performed By: #### D ATLIPI, DATPSA, DATBMP #### [facility] [address] [address] [address] Power Covarrubias Potassium [Moles/Vol] 4.0 mmol/L Normal 3.5-5.[address] [facility] Comment on above: Performed By: #### D ATLIPI, DATPSA, DATBMP #### [facility] [address] [address] [address] Power Covarrubias Sodium [Moles/Vol] 140 mmol/L Normal 136-145 [facility] Comment on above: Performed By: #### D ATLIPI, DATPSA, DATBMP #### [facility] [address] [address] [address] Power Covarrubias Triglyceride [Mass/Vol] 80 mg/dL Normal <=[address] [facility] Comment on above: Performed By: #### D ATLIPI, DATPSA, DATBMP #### [facility] [address] [place] [address] Dr. Power Covarrubias Urea nitrogen [Mass/Vol] 14.0 mg/dL Normal 7.0-18.[address] [facility] Comment on above: Performed By: #### D ATLIPI, DATPSA, DATBMP #### [facility] [address] [place] [address] Dr. Power Covarrubias Urea nitrogen/Creatinine [Mass ratio] 16.3 mg/mg Normal [facility] Comment on above: Performed By: #### D ATLIPI, DATPSA, DATBMP #### [facility] [address] [place] [address] Dr. Power Covarrubias VLDL CALC 16.0 mg/dL Normal [facility] Comment on above: Performed By: #### D ATLIPI, DATPSA, DATBMP #### [facility] [address] [place] [address] Dr. Power Covarrubias OCC BLD IMMUNO SCREENon 06-16 OCCULT BLOOD Negative Normal NEGATIVE [facility] Comment on above: Performed By: #### O BSCRN #### [facility] [address] [place] [address] Dr. Power Covarrubias T4 LABCORPon 06-30-2022 T4 [Mass/Vol] 9.2 ug/dL Normal 4.5-12.[address] [facility] Comment on above: Performed By: #### D ATLIPI, DATPSA, DATBMP #### [facility] [address] [place] [address] Dr. Power Covarrubias CBC AUTO DIFFon 06-29-2022 BASO # 0.0 103/ul Normal 0.0-0.[address] [facility] Comment on above: Performed By: #### D ATLIPI, DATPSA, DATBMP #### [facility] [address] [place] [address] Dr. Power Covarrubias Basophils/100 WBC (Bld) 0.5 % Normal 0.2-2.[address] [facility] Comment on above: Performed By: #### D ATLIPI, DATPSA, DATBMP #### [facility] [address] [place] [address] Dr. Power Covarrubias EO # 0.1 103/ul Normal 0.0-0.7 [facility] Comment on above: Performed By: #### D ATLIPI, DATPSA, DATBMP #### [facility] [address] [place] [address] Dr. Power Covarrubias Eosinophils/100 WBC (Bld) 2.5 % Normal 0.9-7.0 [facility] Comment on above: Performed By: #### D ATLIPI, DATPSA, DATBMP #### [facility] [address] [place] [address] Dr. Power Covarrubias Erythrocyte distribution width (RBC) [Ratio] 13.4 % Normal 11.0-15.[address] [facility] Comment on above: Performed By: #### D ATLIPI, DATPSA, DATBMP #### [facility] [address] [place] [address] Dr. Power Covarrubias Hematocrit (Bld) [Volume fraction] 38.1 % Critically low 42.0-54.0 [facility] Comment on above: Performed By: #### D ATLIPI, DATPSA, DATBMP #### [facility] [address] [place] [address] Dr. Power Covarrubias Hemoglobin (Bld) [Mass/Vol] 12.0 g/dL Critically low 14.0-18.0 [facility] Comment on above: Performed By: #### D ATLIPI, DATPSA, DATBMP #### [facility] [address] [place] [address] Dr. Power Covarrubias IG # 0.01 10e3/ul Normal 0.00-0.03 [facility] Comment on above: Performed By: #### D ATLIPI, DATPSA, DATBMP #### [facility] [address] [place] [address] Dr. Power Covarrubias IG % 0.2 % Normal 0.0-0.5 [facility] Comment on above: Performed By: #### D ATLIPI, DATPSA, DATBMP #### [facility] [address] [place] [address] Dr. Power Covarrubias LYMPH # 0.9 103/ul Critically low 1.2-3.8 [facility] Comment on above: Performed By: #### D ATLIPI, DATPSA, DATBMP #### [facility] [address] [place] [address] Dr. Power Covarrubias Lymphocytes/100 WBC (Bld) 15.5 % Critically low 20.5-60.[address] [facility] Comment on above: Performed By: #### D ATLIPI, DATPSA, DATBMP #### [facility] [address] [place] [address] Dr. Power Covarrubias MANUAL DIFF REQ NO Normal [facility] Comment on above: Performed By: #### D ATLIPI, DATPSA, DATBMP #### [facility] [address] [place] [address] Dr. Power Covarrubias MCH (RBC) [Entitic mass] 30.2 pg Normal 25.9-34.0 [facility] Comment on above: Performed By: #### D ATLIPI, DATPSA, DATBMP #### [facility] [address] [place] [address] Dr. Power Covarrubias MCHC (RBC) [Mass/Vol] 31.5 g/dL Normal 29.9-35.2 [facility] Comment on above: Performed By: #### D ATLIPI, DATPSA, DATBMP #### [facility] [address] [place] [address] Dr. Power Covarrubias MCV (RBC) [Entitic vol] 96.0 fL Critically high 80.0-94.0 [facility] Comment on above: Performed By: #### D ATLIPI, DATPSA, DATBMP #### [facility] [address] [place] [address] Dr. Power Covarrubias MONO # 0.5 103/ul Normal 0.3-0.8 [facility] Comment on above: Performed By: #### D ATLIPI, DATPSA, DATBMP #### [facility] [address] [place] [address] Dr. Power Covarrubias Monocytes/100 WBC (Bld) 9.5 % Normal 1.7-12.0 [facility] Comment on above: Performed By: #### D ATLIPI, DATPSA, DATBMP #### [facility] [address] [place] [address] Dr. Power Covarrubias NEUT # 4.1 103/ul Normal 1.4-6.5 [facility] Comment on above: Performed By: #### D ATLIPI, DATPSA, DATBMP #### [facility] [address] [place] [address] Dr. Power Covarrubias Neutrophils/100 WBC (Bld) 71.8 % Normal 43.0-75.0 [facility] Comment on above: Performed By: #### D ATLIPI, DATPSA, DATBMP #### [facility] [address] [place] [address] Dr. Power Covarrubias Platelet mean volume (Bld) [Entitic vol] 9.8 fL Normal 9.5-13.5 [facility] Comment on above: Performed By: #### D ATLIPI, DATPSA, DATBMP #### [facility] [address] [place] [address] Dr. Power Covarrubias PLT 212 103/ul Normal 150-450 [facility] Comment on above: Performed By: #### D ATLIPI, DATPSA, DATBMP #### [facility] [address] [place] [address] Dr. Power Covarrubias RBC 3.97 106/ul Critically low 4.70-6.10 [facility] Comment on above: Performed By: #### D ATLIPI, DATPSA, DATBMP #### [facility] [address] [place] [address] Dr. Power Covarrubias WBC 5.7 103/ul Normal 4.0-11.0 [facility] Comment on above: Performed By: #### D ATLIPI, DATPSA, DATBMP #### [facility] [address] [address] [address] Power Covarrubias FREE T3on 06-29-2022 FREE T3 2.73 pg/mlL Normal 2.18-3.[address] [facility] Comment on above: Performed By: #### D ATLIPI, DATPSA, DATBMP #### [facility] [address] [address] [address] Power Covarrubias GLYCOHEMOGLOBIN A1Con 2021 ADA RECOMMENDATION SEE BELOW Normal [facility] Comment on above: Result Comment: ADA RECOMMENDED LIMIT 4.0 - 6.0 ADA THERAPEUTIC TARGET < 7.0 ACTION SUGGESTED > 7.0 Performed By: #### A 1C #### [facility] [address] [place] [address] Dr. Power Covarrubias Glucose [Mass/Vol] 114 mg/dL Normal [facility] Comment on above: Performed By: #### A 1C #### [facility] [address] [place] [address] Dr. Power Covarrubias HbA1c (Bld) [Mass fraction] 5.6 % Normal 4.5-6.[address] [facility] Comment on above: Performed By: #### A 1C #### [facility] [address] [place] [address] Dr. Power Covarrubias LIPID PROFILEon 06-29-2022 CHOL-HDL RATIO NORM SEE BELOW Normal [facility] Comment on above: Result Comment: 3.3 - 4.4 LOW RISK 4.4 - 7.1 AVERAGE RISK 7.1 - 11.0 MODERATE RISK >11.0 HIGH RISK Performed By: #### D ATLIPI, DATPSA, DATBMP #### [facility] [address] [place] [address] Dr. Power Covarrubias Cholesterol [Mass/Vol] 110 mg/dL Normal <=[address] [facility] Comment on above: Performed By: #### D ATLIPI, DATPSA, DATBMP #### [facility] [address] [place] [address] Dr. Power Covarrubias Cholesterol in HDL [Mass/Vol] 47 mg/dL Normal 40-[address] [facility] Comment on above: Performed By: #### D ATLIPI, DATPSA, DATBMP #### [facility] [address] [address] [address] Power Covarrubias Cholesterol in LDL [Mass/Vol] 51.2 mg/dL Normal [facility] Comment on above: Performed By: #### D ATLIPI, DATPSA, DATBMP #### [facility] [address] [address] [address] Power Covarrubias Cholesterol.total/Ch olesterol in HDL [Mass ratio] 2.3 {ratio} Normal [facility] Comment on above: Performed By: #### D ATLIPI, DATPSA, DATBMP #### [facility] [address] [address] [address] Power Covarrubias HDL NORMAL > or = 60 mg/dl - LO W CARDIOVASCULAR RISK <40 mg/dl - HIGH CARDIOVASCULAR RISK Normal [facility] Comment on above: Performed By: #### D ATLIPI, DATPSA, DATBMP #### [facility] [address] [address] [address] Power Covarrubias LDL CALC NORMAL SEE BELOW Normal [facility] Comment on above: Result Comment: <100 mg/dl OPTIMAL 100 - 129 mg/dl NEAR OR ABOVE OPTIMAL 130 - 159 mg/dl BORDERLINE HIGH 160 - 189 mg/dl HIGH >190 mg/dl VERY HIGH Performed By: #### D ATLIPI, DATPSA, DATBMP #### [facility] [address] [address] [address] Power Covarrubias Triglyceride [Mass/Vol] 59 mg/dL Normal <=150 [facility] Comment on above: Performed By: #### D ATLIPI, DATPSA, DATBMP #### [facility] [address] [address] [address] Power Covarrubias VLDL CALC 11.8 mg/dL Normal [facility] Comment on above: Performed By: #### D ATLIPI, DATPSA, DATBMP #### [facility] [address] [place] [address] Dr. Power Covarrubias PROF 14(COMP METB)on 022 Albumin [Mass/Vol] 3.3 g/dL Critically low 3.4-5.0 [facility] Comment on above: Performed By: #### D ATLIPI, DATPSA, DATBMP #### [facility] [address] [place] [address] Dr. Power Covarrubias Albumin/Globulin [Mass ratio] 0.9 {ratio} Normal [facility] Comment on above: Performed By: #### D ATLIPI, DATPSA, DATBMP #### [facility] [address] [place] [address] Dr. Power Covarrubias ALP [Catalytic activity/Vol] 100 U/L Normal 46-[address] [facility] Comment on above: Performed By: #### D ATLIPI, DATPSA, DATBMP #### [facility] [address] [place] [address] Dr. Power Covarrubias ALT [Catalytic activity/Vol] 16 U/L Normal 16-[address] [facility] Comment on above: Performed By: #### D ATLIPI, DATPSA, DATBMP #### [facility] [address] [place] [address] Dr. Power Covarrubias Anion gap [Moles/Vol] 11.4 mmol/L Normal [facility] Comment on above: Performed By: #### D ATLIPI, DATPSA, DATBMP #### [facility] [address] [place] [address] Dr. Power Covarrubias AST [Catalytic activity/Vol] 14 U/L Critically low 15-[address] [facility] Comment on above: Performed By: #### D ATLIPI, DATPSA, DATBMP #### [facility] [address] [place] [address] Dr. Power Covarrubias Bilirubin [Mass/Vol] 0.7 mg/dL Normal 0.2-1.[address] [facility] Comment on above: Performed By: #### D ATLIPI, DATPSA, DATBMP #### [facility] [address] [address] [address] Power Covarrubias Calcium [Mass/Vol] 9.0 mg/dL Normal 8.5-10.1 [facility] Comment on above: Performed By: #### D ATLIPI, DATPSA, DATBMP #### [facility] [address] [place] [address] Dr. Power Covarrubias Chloride [Moles/Vol] 107 mmol/L Normal 98-107 [facility] Comment on above: Performed By: #### D ATLIPI, DATPSA, DATBMP #### [facility] [address] [place] [address] Dr. Power Covarrubias CO2 [Moles/Vol] 28.5 mmol/L Normal 21.0-32.0 [facility] Comment on above: Performed By: #### D ATLIPI, DATPSA, DATBMP #### [facility] [address] [place] [address] Dr. Power Covarrubias Creatinine [Mass/Vol] 0.87 mg/dL Normal 0.70-1.[address] [facility] Comment on above: Performed By: #### D ATLIPI, DATPSA, DATBMP #### [facility] [address] [place] [address] Dr. Power Covarrubias EGFR-AF [place]ER >60 Normal >=60 [facility] Comment on above: Performed By: #### D ATLIPI, DATPSA, DATBMP #### [facility] [address] [place] [address] Dr. Power Covarrubias EGFR-NON AF [place]ER >60 Normal >=[address] [facility] Comment on above: Performed By: #### D ATLIPI, DATPSA, DATBMP #### [facility] [address] [place] [address] Dr. Power Covarrubias Globulin (S) [Mass/Vol] 3.6 g/dL Normal [facility] Comment on above: Performed By: #### D ATLIPI, DATPSA, DATBMP #### [facility] [address] [place], [place] [id number] Dr. Power Covarrubias Glucose [Mass/Vol] 90 mg/dL Normal 74-106 [facility] Comment on above: Performed By: #### D ATLIPI, DATPSA, DATBMP #### [facility] [address] [place] [address] Dr. Power Covarrubias Potassium [Moles/Vol] 3.9 mmol/L Normal 3.5-5.1 [facility] Comment on above: Performed By: #### D ATLIPI, DATPSA, DATBMP #### [facility] [address] [address] [address] Power Covarrubias Protein [Mass/Vol] 6.9 g/dL Normal 6.4-8.2 [facility] Comment on above: Performed By: #### D ATLIPI, DATPSA, DATBMP #### [facility] [address] [place] [address] Dr. Power Covarrubias Sodium [Moles/Vol] 143 mmol/L Normal 136-145 [facility] Comment on above: Performed By: #### D ATLIPI, DATPSA, DATBMP #### [facility] [address] [place] [address] Dr. Power Covarrubias Urea nitrogen [Mass/Vol] 13.0 mg/dL Normal 7.0-18.0 [facility] Comment on above: Performed By: #### D ATLIPI, DATPSA, DATBMP #### [facility] [address] [place] [address] Dr. Power Covarrubias Urea nitrogen/Creatinine [Mass ratio] 14.9 mg/mg Normal [facility] Comment on above: Performed By: #### D ATLIPI, DATPSA, DATBMP #### [facility] [address] [place] [address] Dr. Power Covarrubias TSHon 06-29-2022 TSH 2.585 uIU/mL Normal 0.358-3.[address] [facility] Comment on above: Performed By: #### T SH, LIPID, FT3, CMP #### [facility] [address] [place] [address] Dr. Power Covarrubias CBC AUTO DIFFon 04-09-2022 BASO # 0.1 103/ul Normal 0.0-0.[address] [facility] Comment on above: Performed By: #### D ATCBC #### [facility] [address] [place] [address] Dr. Power Covarrubias Basophils/100 WBC (Bld) 1.0 % Normal 0.2-2.0 [facility] Comment on above: Performed By: #### D ATCBC #### [facility] [address] [place] [address] Dr. Power Covarrubias EO # 0.2 103/ul Normal 0.0-0.7 [facility] Comment on above: Performed By: #### D ATCBC #### [facility] [address] [place] [address] Dr. Power Covarrubias Eosinophils/100 WBC (Bld) 3.7 % Normal 0.9-7.[address] [facility] Comment on above: Performed By: #### D ATCBC #### [facility] [address] [place] [address] Dr. Power Covarrubias Erythrocyte distribution width (RBC) [Ratio] 13.3 % Normal 11.0-15.[address] [facility] Comment on above: Performed By: #### D ATCBC #### [facility] [address] [place] [address] Dr. Power Covarrubias Hematocrit (Bld) [Volume fraction] 37.8 % Critically low 42.0-54.[address] [facility] Comment on above: Performed By: #### D ATCBC #### [facility] [address] [place] [address] Dr. Power Covarrubias Hemoglobin (Bld) [Mass/Vol] 12.4 g/dL Critically low 14.0-18.[address] [facility] Comment on above: Performed By: #### D ATCBC #### [facility] [address] [place] [address] Dr. Power Covarrubias IG # 0.01 10e3/ul Normal 0.00-0.[address] [facility] Comment on above: Performed By: #### D ATCBC #### [facility] [address] [address] [address] Power Covarrubias IG % 0.2 % Normal 0.0-0.[address] [facility] Comment on above: Performed By: #### D ATCBC #### [facility] [address] [place] [address] Dr. Power Covarrubias LYMPH # 1.0 103/ul Critically low 1.2-3.[address] [facility] Comment on above: Performed By: #### D ATCBC #### [facility] [address] [place] [address] Dr. Power Covarrubias Lymphocytes/100 WBC (Bld) 19.0 % Critically low 20.5-60.[address] [facility] Comment on above: Performed By: #### D ATCBC #### [facility] [address] [place] [address] Dr. Power Covarrubias MCH (RBC) [Entitic mass] 30.9 pg Normal 25.9-34.[address] [facility] Comment on above: Performed By: #### D ATCBC #### [facility] [address] [place] [address] Dr. Power Covarrubias MCHC (RBC) [Mass/Vol] 32.8 g/dL Normal 29.9-35.[address] [facility] Comment on above: Performed By: #### D ATCBC #### [facility] [address] [place] [address] Dr. Power Covarrubias MCV (RBC) [Entitic vol] 94.3 fL Critically high 80.0-94.[address] [facility] Comment on above: Performed By: #### D ATCBC #### [facility] [address] [place] [address] Dr. Power Covarrubias MONO # 0.5 103/ul Normal 0.3-0.[address] [facility] Comment on above: Performed By: #### D ATCBC #### [facility] [address] [place] [address] Dr. Power Covarrubias Monocytes/100 WBC (Bld) 9.4 % Normal 1.7-12.[address] [facility] Comment on above: Performed By: #### D ATCBC #### [facility] [address] [address] [address] Power Covarrubias NEUT # 3.4 103/ul Normal 1.4-6.[address] [facility] Comment on above: Performed By: #### D ATCBC #### [facility] [address] [address] [address] Power Covarrubias Neutrophils/100 WBC (Bld) 66.7 % Normal 43.0-75.[address] [facility] Comment on above: Performed By: #### D ATCBC #### [facility] [address] [address] [address] Power Covarrubias Platelet mean volume (Bld) [Entitic vol] 9.9 fL Normal 9.5-13.[address] [facility] Comment on above: Performed By: #### D ATCBC #### [facility] [address] [address] [address] Power Covarrubias PLT 205 103/ul Normal 150-[address] [facility] Comment on above: Performed By: #### D ATCBC #### [facility] [address] [address] [address] Power Covarrubias RBC 4.01 106/ul Critically low 4.70-6.10 [facility] Comment on above: Performed By: #### D ATCBC #### [facility] [address] [address] [address] Power Covarrubias WBC 5.1 103/ul Normal 4.0-11.[address] [facility] Comment on above: Performed By: #### D ATCBC #### [facility] [address] [address] [address] Power Covarrubias BRE- BMP WITH LIPIDon 2021 Anion gap [Moles/Vol] 9.5 mmol/L Normal [facility] Comment on above: Performed By: #### D ATLIPI, DATPSA, DATBMP #### [facility] [address] [address] [address] Power Covarrubias Calcium [Mass/Vol] 9.0 mg/dL Normal 8.5-10.1 [facility] Comment on above: Performed By: #### D ATLIPI, DATPSA, DATBMP #### [facility] [address] [address] [address] Power Covarrubias Chloride [Moles/Vol] 108 mmol/L Critically high 98-[address] [facility] Comment on above: Performed By: #### D ATLIPI, DATPSA, DATBMP #### [facility] [address] [address] [address] Power Covarrubias Cholesterol [Mass/Vol] 114 mg/dL Normal <=200 [facility] Comment on above: Performed By: #### D ATLIPI, DATPSA, DATBMP #### [facility] [address] [place] [address] Dr. Power Covarrubias Cholesterol in HDL [Mass/Vol] 49 mg/dL Normal 40-[address] [facility] Comment on above: Performed By: #### D ATLIPI, DATPSA, DATBMP #### [facility] [address] [place] [address] Dr. Power Covarrubias Cholesterol in LDL [Mass/Vol] 50.4 mg/dL Normal [facility] Comment on above: Performed By: #### D ATLIPI, DATPSA, DATBMP #### [facility] [address] [place] [address] Dr. Power Covarrubias CO2 [Moles/Vol] 28.3 mmol/L Normal 21.0-32.0 [facility] Comment on above: Performed By: #### D ATLIPI, DATPSA, DATBMP #### [facility] [address] [place] [address] Dr. Power Covarrubias Creatinine [Mass/Vol] 0.88 mg/dL Normal 0.70-1.[address] [facility] Comment on above: Performed By: #### D ATLIPI, DATPSA, DATBMP #### [facility] [address] [place] [address] Dr. Power Covarrubias EGFR-AF [place] >60 Normal >=60 [facility] Comment on above: Performed By: #### D ATLIPI, DATPSA, DATBMP #### [facility] [address] [address] [address] Power Covarrubias EGFR-NON AF [place] >60 Normal >=[address] [facility] Comment on above: Performed By: #### D ATLIPI, DATPSA, DATBMP #### [facility] [address] [address] [address] Power Covarrubias Glucose [Mass/Vol] 107 mg/dL Critically high 74-106 [facility] Comment on above: Performed By: #### D ATLIPI, DATPSA, DATBMP #### [facility] [address] [address] [address] Power Covarrubias HDL NORMAL > or = 60 mg/dl - LO W CARDIOVASCULAR RISK <40 mg/dl - HIGH CARDIOVASCULAR RISK Normal [facility] Comment on above: Performed By: #### D ATLIPI, DATPSA, DATBMP #### [facility] [address] [address] [address] Power Covarrubias LDL CALC NORMAL SEE BELOW Normal [facility] Comment on above: Result Comment: <100 mg/dl OPTIMAL 100 - 129 mg/dl NEAR OR ABOVE OPTIMAL 130 - 159 mg/dl BORDERLINE HIGH 160 - 189 mg/dl HIGH >190 mg/dl VERY HIGH Performed By: #### D ATLIPI, DATPSA, DATBMP #### [facility] [address] [address] [address] Power Covarrubias Potassium [Moles/Vol] 3.8 mmol/L Normal 3.5-5.[address] [facility] Comment on above: Performed By: #### D ATLIPI, DATPSA, DATBMP #### [facility] [address] [address] [address] Power Covarrubias Sodium [Moles/Vol] 142 mmol/L Normal 136-145 [facility] Comment on above: Performed By: #### D ATLIPI, DATPSA, DATBMP #### [facility] [address] [address] [address] Power Covarrubias Triglyceride [Mass/Vol] 73 mg/dL Normal <=150 [facility] Comment on above: Performed By: #### D ATLIPI, DATPSA, DATBMP #### [facility] [address] [address] [address] Power Covarrubias Urea nitrogen [Mass/Vol] 12.0 mg/dL Normal 7.0-18.[address] [facility] Comment on above: Performed By: #### D ATLIPI, DATPSA, DATBMP #### [facility] [address] [address] [address] Power Covarrubias Urea nitrogen/Creatinine [Mass ratio] 13.6 mg/mg Normal [facility] Comment on above: Performed By: #### D ATLIPI, DATPSA, DATBMP #### [facility] [address] [address] [address] Power Covarrubias VLDL CALC 14.6 mg/dL Normal [facility] Comment on above: Performed By: #### D ATLIPI, DATPSA, DATBMP #### [facility] [address] [address] [address] Power Covarrubias Cardiovascular Lab Reporton 07-03-2020 Cardiovascular Lab Report [facility] Patient Name: Oscar Cox [facility] MR #: [id number] Physician: Shiloh Hester Department of M.D. Medicine Service Date: 07/03/2020 Division of Birthdate: 1945 Cardiology Room #: Adult Cardiovascular Services [place] [address] Cardiovascular Laboratory Report FINAL IMPRESSIONS: 1. Ihfa-je-yfhxugwk 3-vessel coronary artery disease. 2. Rcgg-ti-zxatmssj left main coronary artery disease that appears [...] Follow up with Dr. Hester in the [facility] in the next 1 to 2 [...] to access the left radial artery. A 6-Yi glide sheath was inserted without difficulty. Resistance [...] Hester M.D. Date Trans: 07/03/2020 02:42 P/anibal [id number] cc: Neo Gould M.D. [address], [facility] [place] [id number] [facility] Vital Signs Date Time Vital Sign Value Performing Clinician Luis Fernandoi shantell 03-28-2023 14:23-0400 Blood Pressure Location Zhang DENISE [facility] 03-28-2023 14:23-0400 Diastolic blood pressure 60 mm[Hg] Zhang DENISE [facility] 03-28-2023 14:23-0400 Heart rate 60 /min Zhang DENISE [facility] 03-28-2023 14:23-0400 Respiratory rate 16 /min Zhang DENISE [facility] 03-28-2023 14:23-0400 Systolic blood pressure 116 mm[Hg] [facility] En[facility] Date Encounter Type Care Provider Facility Start: 04-02-2024 End: 04-02-2024 ambulatory TINY TRAVIS Not Available Start: 03-19-2024 End: 03-19-2024 ambulatory Zhang DENISE Facility:[facility] [place] Start: 03-05-2024 End: 03-05-2024 ambulatory FELICIA TAPIA [facility] Start: 02-19-2024 End: 02-19-[address] [facility] Start: 12-13-2023 End: 12-13-[address] [facility] Start: 11-27-2023 End: 11-27-2023 ambulatory [facility] Start: 09-13-2023 ambulatory Ghislaine Morales Facility:[facility] [place] Start: 06-15-2023 ambulatory Zhang DENISE Facility:[facility] Start: 06-01-2023 End: [facility]: 05-09-2023 ambulatory Zhang DENISE Facility :[facility] [place] Start: 04-26-2023 End: 04-27-2023 ambulatory Zhang DENISE Facility:[id number] Start: 03-28-2023 End: 03-29-2023 ambulatory Zhang [...] By: #### D ATLIPI, DATPSA, DATBMP #### [facility] [address] [place], [place] [address] Dr. Power Covarrubias Start: 08-31-2022 PSA screening PEBBLES B OES Comment on above: Performed By: #### D ATLIPI, DATPSA, DATBMP #### [facility] [address] [place], [place] [address] Dr. Power Covarrubias Start: 06-29-2022 PSA screening PEBBLES B OES Comment on above: Performed By: #### P SASC #### [facility] [id number] Power Covarrubias Start: 10-04-2017 Colonoscopy Zhang NG Excision of lumbar intervertebral disc Zhang HOWIE Comment on above: L5 Repair of hip Zhang DENISE Immunizations Immunization Date Immunization Notes Care Provider Fa cili 04-29-2021 SARS-CoV-2 (COVID-19 ) mRNA BNT-162b2 vax Zhang NILL [facility] [place] 04-09-2021 SARS-CoV-2 (COVID-19 ) mRNA BNT-162b2 vax Zhang NILL [facility] [place] Payers Date Payer Category Payer Self-pay 1958 Unknown [id number] 1945 Unknown [id number] 2.16.84 [id number] 1945 Unknown [id number] 2.16.84 [id number] 1945 Unknown [id number] 2.16.8 [id number] 1945 Unknown [id number] 2.16.8 [id number] 1945 Unknown [id number] 2.16.8 [id number] 1945 Unknown [id number] 2.16.8 [id number] 1945 Unknown [id number] 2.16.8 [id number] 1945 Unknown [id number] 2.16.8 [id number] 1945 Unknown [id number] 2.16.84 [id number] 1945 Unknown [id number] 2.16.84 [id number] Unknown [id number] 2.16.84 [id number] Unknown [id number] 2.16.84 [id number] Unknown [id number] 2.16.84 [id number] Social History Date Type Detail Facility Start: 03-28-2023 Tobacco smoking status Never s moked tobacco (finding) [facility] [place] Tobacco smoking status Never [facility] [place] Sex Assigned At Male [facility] Functional Status Date Assessment Result Facility 03-28-2023 Functional Status N/A [facility] Progress note 02-19-2024 Note Date & Type Note Facility 02-19-2024 Note [facility] Cardiology Clinic Note Chief Complaint: Patient here for follow up [facility] for elevated troponin and bradycardia. He [...] 07/03/2020 Cardiovascular Laboratory Report FINAL IMPRESSIONS: 1. Qncz-kf-rfgsoazm 3-vessel coronary artery disease. 2. Iuqx-ud-ddmjgssr left main coronary artery disease that appears unchanged from prior angiography. 3. Normal global left ventricular (more content not included)... [facility] Progress note 12-13-2023 Note Date & Type Note Facility 12-13-2023 Note [facility] Cardiology Clinic Note Chief Complaint: [...] 07/03/2020 Cardiovascular Laboratory Report FINAL IMPRESSIONS: 1. Wesz-ln-zcfcjrwq 3-vessel coronary artery disease. 2. Tefl-tw-jqydibqp left main coronary artery disease that appears [...] atrium is sever (more content not included)... [facility] Progress note 11-27-2023 Note Date & Type Note Facility 11-27-2023 Note [facility] Subjective Oscar Cox is [...] Cognitive communication deficit Atherosclerotic heart disease of [place] coronary artery without angina pectoris Diarrhea Hypokalemia [...] discuss left atrial appendage closure. His primary secy is Dr Shiloh Hester. He has history [...] Latest known visit (more content not included)... [facility] Progress note 06-01-2023 Note Date & [...] month ago He was admitted 04/28-05/02 at [facility] following the last fall and has [...] bradycardia during ho (more content not included)... [facility] Clinical Note 03-28-2023 Note Date & [...] informed consent obtained. 2. 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 [employer] (current) use of anticoagulants) hold Eliquis 2 [...] SARS-CoV-2 (COVID-19) mRNA BNT-162b2 vax 04/09/2021 Recorded [facility] Comment on above: Result Comment: Elec tronically Signed By: HOWIE LOPEZ, Zhang Yan\Date and Time Signed: 03/28/23 20:17 EDT Evaluation + Plan note Note Date & Type Note Facility Evaluation + Plan note No data available for this section [facility] Discharge instructions Note Date & Type Note Facility Hospital Discharge instructions No data available for this section [facility] [place] Progress note Note Date & Type Note Facility Progress note No data available for this section [facility] [place] Summary Purpose Family History No Family History [...] and content) DATE CREATED AUTHOR 07/07/2020 [facility] DATE CREATED AUTHOR AUTHOR'S ORGANIZ ATION 03/02/[address] [facility] DATE CREATED AUTHOR AUTHOR'S ORGANIZ ATION 03/08/2024 [facility] DATE CREATED AUTHOR AUTHOR'S ORGANIZ ATION 03/12/2024 [facility] DATE CREATED AUTHOR AUTHOR'S ORGANIZ ATION 04/04/2024 [facility] EPIC DATE CREATED AUTHOR AUTHOR'S ORGANIZ ATION 04/09/2024 [facility] Patient Care team informatio n (unrecognized section and content) Personnel Name: Neo Gould MD Address: Address: [address] [place], [place] [address] FOR RECORDS PERTAINING TO PATIENTS WHO ARE [...] BE BASED ON THE PRIMARY CLINICAL RECORDS. [facility]. provides no warranty or guarantee of the accuracy or completeness of information in this document.
--- NOTE | 2024-06-27 14:31 | P.CN_ITS ---
Consult Note: HPI Data of Consult Patient: known to practice within the last 3 years Requesting Physician: Radha Mireles NP Primary Care Provider: Javier Gould MD Consult Narrative Reason for consult: f/u Narrative: Oscar Cox a pleasant 79 year old male presents for evaluation of generalized OA pain, most significantly his cervical spine. Patient rating pain 6-7/10 today increasing with weather changes, sitting, standing, activity. Pain improved with sleep and lying down. Pt has failed to benefit from greater than 6 weeks of PT, cannot take NSAIDs due to eliquis, finds no benefit to heat/ice. patient utilizing PRN tylenol, topical lidocaine and baclofen 5mg BID PRN with mild relief. cc:: CC: Radha Mireles NP Review of Systems ROS Status of ROS 10 or more systems reviewed and unremark able except as noted in history and below Musculoskeletal Reports: back pain, neck pain and joint pain [facility] Medical History (Updated 06/27/24 @ 14:48 by Radha Mireles NP) Fall ?W19.XXXA - Unspecified fall, initial encounter (ICD-10) Weakness ?R53.1 - Weakness (ICD-10) Inability to walk ?R26.2 - Difficulty in walking, not elsewhere classified (ICD-10) Near syncope ?R55 - Syncope and collapse (ICD-10) Left leg weakness ?R29.898 - Other symptoms and signs involving the musculoskeletal system (ICD-10) Leg pain, left ?M79.605 - Pain in left leg (ICD-10) Frequent falls ?R29.6 - Repeated falls (ICD-10) Bradycardia with 31-40 beats per minute ?R00.1 - Bradycardia, unspecified (ICD-10) Hypokalemia ?E87.6 - Hypokalemia (ICD-10) PVC (premature ventricular contraction) ?I49.3 - Ventricular premature depolarization (ICD-10) Lower extremity edema ?R60.0 - Localized edema (ICD-10) Obesity ?E66.9 - Obesity, unspecified (ICD-10) Hypertension ?I10 - Essential (primary) hypertension (ICD-10) Prostate cancer ?C61 - Malignant neoplasm of prostate (ICD-10) Colon polyps ?K63.5 - Polyp of colon (ICD-10) Heart failure, diastolic ?I50.30 - Unspecified diastolic (congestive) heart failure (ICD-10) Coronary arteriosclerosis ?I25.10 - Atherosclerotic heart disease of [place] coronary artery without angina pectoris (ICD-10) Chronic anticoagulation ?Z79.01 - nursing home (current) use of anticoagulants (ICD-10) Cervical disc disease ?M50.90 - Cervical disc disorder, unspecified, unspecified cervical region (ICD-10) Atrial fibrillation ?I48.91 - Unspecified atrial fibrillation (ICD-10) Surgical History History of tonsillectomy and adenoidectomy ?Z90.89 - Acquired absence of other organs (ICD-10) H/O lumbar discectomy ?Z98.890 - Other specified postprocedural states (ICD-10) H/O total hip arthroplasty ?Z96.649 - Presence of unspecified artificial hip joint (ICD-10) H/O colonoscopy with polypectomy ?Z98.890 - Other specified postprocedural states (ICD-10) ?Z86.010 - Personal history of colonic polyps (ICD-10) Family History Other Family history not known due to adoption Social History Within the past year, how often did you have a drink containing alcohol: never Score interpretation: A score less than 4 is consistent with normal alcohol consumption. 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 Known occupational exposures/hazards: No Highest level of school completed/degree received: high school graduate Do you want help with school or training: No Are you now , , , , never or living with a partner: In a typical week, how many times do you talk on the telephone with family, friends, or neighbors: 3 or more times per week How often do you get together with friends or relatives: once per week How often do you attend hindu or episcopal services: never Do you belong to any clubs or organizations such as hindu groups unions, fraternal or athletic groups, or school groups: no Total score: 1 Score interpretation: A score of less than or equal to 1 indicates the most socially isolated. Little interest or pleasure in doing things: not at all Feeling down, depressed, or hopeless: not at all Feel stressed/tense/nervous/anxious/difficulty sleeping: not at all Due to disability, difficulty making decisions: No Do you think of yourself as: straight/heterosexual Gender Identity: male Meds Home Medications and Allergies Home Medications ?Medication ?Instructions ?Recorded ?Confirmed ?Type furosemide 40 mg tablet 40 mg PO Q12H 04/12/23 04/02/24 History acetaminophen 500 mg tablet 1,000 mg (2 x 500 mg) PO Q6H PRN 05/02/23 04/02/24 Rx (Tylenol Extra Strength) Pain Scale 1-3 #120 tabs apixaban 5 mg tablet (Eliquis) 5 mg PO Q12H 01/20/24 04/02/24 History hydralazine 50 mg tablet 50 mg PO BID #60 tabs 02/16/24 04/02/24 Rx ropinirole 1 mg tablet 1 mg PO QHS #30 tabs 02/16/24 04/02/24 Rx atorvastatin 80 mg tablet 80 mg PO DAILY 04/02/24 04/02/24 History carvedilol 12.5 mg tablet 6.25 mg PO Q12H 04/02/24 04/02/24 History multivitamin 1 tab PO DAILY 04/02/24 04/02/24 History Allergies Allergy/AdvReac Type Severity Reaction Status Date / Time No Known Drug Allergies Allergy Verified 02/14/24 19:26 Exam Constitutional Documenting provider has reviewed patient's vital signs: yes Common normals: no apparent distress, oriented x3, healthy appearing, alert and well nourished General appearance: cooperative HENNM Common normals: normocephalic, hearing grossly normal bilaterally and moist oral mucous membranes Head and scalp: normocephalic Eye Common normals: PERRL Pupil: PERRL Neck & C-Spine Common normals: full ROM General: normal visual inspection Cervical spine: cervical ROM normal, pain with cervical ROM and cervical spine tenderness; no paracervical muscle tenderness, no paracervical muscle spasm and no trapezius muscle tenderness Other: positive facet loading C2-4 right greater than left negative spurlings strength 5/5 in BUE Chest Common normals: inspection of chest normal Respiratory Common normals: normal respiratory effort, no retractions and no use of accessory muscles Neuro Common normals: oriented x3, CN's II-XII intact bilaterally, moves all extremities, no focal motor deficits, no sensory deficits noted and deep tendon reflexes 2+ bilaterally Sensorium/orientation: alert Motor exam: strength 5/5 throughout and no movement abnormalities noted Psych Common normals: mental status grossly normal, thought process normal, cooperative, affect normal, speech normal and activity/motor behavior normal Speech: normal speech Thought process: normal thought process Results Additional Findings Additional findings: If on a controlled substance or opioids, I have checked an [place] report on this patient and there are no aberrancies noted in the prescribing history.??If on a controlled substance or opioid a drug screen was completed and reviewed within the last year, and if there has not been a drug screen completed we ordered one today to monitor higher risk, state monitored pain medication use. As part of providing excellent, safe, comprehensive care, the following was completed at our patient's visit: 1. A medication reconciliation and review to ensure accurate knowledge of current/active medications, including asking our patients to inform us about any [id number] medications or herbal remedies/nutritional supplements/alternative remedies. 2. A review to specifically ensure our patients have had annual screening for screening for depression, screening for tobacco use, and screening for unhealthy alcohol use. For concerning screenings had a discussion with the patient, provided patient education, and recommended follow-up with primary care provider when appropriate. If patient noted with a risk of falling, they received education on strength, gait, and balance training to prevent future risk of falling. Assessment and Plan Assessment and Plan (1) Cervical spondylosis: (2) Myofascial pain: (3) Generalized OA: (4) Chronic pain syndrome: Plan bilateral C2-3 C3-4 MBB x2 working towards RFA to be completed under fluoroscopy, risks vs benefits reviewed start duloxetine 30mg daily for generalized OA, CPS f/u with PCP regarding positive depression screening, denies SI/SH f/u after each injection
== END 2024-06-27 14:07 | disposition home or self-care (01) ==
LOC: PM 14:07
PROVIDERS: PCP Family Medicine; Visit Provider Nurse Practitioner
DX: M47.812 Spondylosis without myelopathy or radiculopathy, cervical region (principal); M79.18 Myalgia, other site; M15.9 Polyosteoarthritis, unspecified; G89.4 Chronic pain syndrome
CPT/HCPCS: G0463

== ENCOUNTER 2024-06-27 15:04 | Outpatient (OUT) | payer MEDICARE, SELFPAY ==
[2024-06-27 15:20] LABS: Basophils Absolute Auto 0.1 10^3/uL (0.0-0.1); Basophils Percent Auto 1.1 % (0.2-2.0); Eosinophils Absolute Auto 0.2 10^3/uL (0.0-0.7); Eosinophils Percent Auto 4.5 % (0.9-7.0); Hematocrit 34.5 % (42.0-54.0); Hemoglobin 10.8 g/dL (14.0-18.0); Immature Granulocytes Abs Auto 0.01 10^3/uL (0.00-0.03); Immature Granulocytes Pct Auto 0.2 % (0.0-0.5); Lymphocytes Percent Auto 22.4 % (20.5-60.0); Mean Corpuscular HGB Conc 31.3 g/dL (29.9-35.2); Mean Corpuscular Hemoglobin 30.5 pg (25.9-34.0); Mean Corpuscular Volume 97.5 fL (80.0-94.0); Mean Platelet Volume 10.2 fL (9.5-13.5); Monocytes Absolute Auto 0.5 10^3/uL (0.3-0.8); Monocytes Percent Auto 11.9 % (1.7-12.0); Neutrophils Absolute Auto 2.7 10^3/uL (1.4-6.5); Neutrophils Percent Auto 59.9 % (43.0-75.0); Platelet Count 182 10^3/uL (150-450); Red Blood Count 3.54 10^6/uL (4.70-6.10); Red Cell Distribution Width 14.4 % (11.0-15.0); White Blood Count 4.5 10^3/uL (4.0-11.0)
--- OUTSIDE RECORDS SUMMARY | 2024-06-27 15:21 | XMS_ITS | CCD ---
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 Oracle Specialist Name Role Phone PEBBLES WOODARD Primary Care [...] Medication Allergies] Propensity to adverse reactions (disorder) [facility] Repository Medications Current Medications Medication [...] Coronary arteriosclerosis; 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: [Atherosclerotic heart disease of [place] coronary artery without angina pectoris] Onset: 12-13-2023 03-15-2023 Chronic Disorders of lipid metabolism (4 sources) Hyperlipidemia, unspecified; 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: [HYPERLIPIDEMIA UNSPECIFIED] Onset: 06-29-2022 Chronic Essential hypertension (3 sources) Hypertensive disorder; 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: [Essential (primary) hypertension] Onset: 05-11-2023 03-15-2023 Chronic Osteoarthritis (4 sources) Primary generalized (osteo)arthritis; 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: [PRIMARY GENERALIZED OSTEOARTHRITIS] Onset: 12-10-2022 Chronic Other aftercare (1 source) Other continuous churn buttermaker (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 Normal [facility] 36on 03-07-2024 36 PT INFIRMED AND ORDE R SENT Normal [facility] Office Visiton 02-19-2024 Follow-up visit [id number] Oscar Cox 1945 M Date Provider Department Center 02/19/2024 SHILOH SANTACRUZ Family History Family history unknown: Yes Level of Service:07910 [place] OFFICE/OUTPATIENT ESTABLISHED LOW MDM 20 MIN Normal [facility] Office Visiton 12-13-2023 Follow-up visit [id number] Oscar Cox 1945 Date Provider Department Center 12/13/2023 271-DENISHUNGUANAKITOJalcynSHILOH ABILIO [facility] Family History Family history unknown: Yes Level of Service:11166 [place] OFFICE/OUTPATIENT ESTABLISHED MOD MDM 30 MIN [facility] Office Visiton 11-27-2023 Follow-up visit [id number] Oscar Cox 1945 [facility] Provider Department Center 11/27/2023 367-JONATHAN HARRISON ABILIO [facility] Family History Family history unknown: Yes Level of Service:41609 [place] OFFICE/OUTPATIENT ESTABLISHED MOD MDM 30 MIN Normal [facility] Residential Recordson 07-04 Residential Records [id number] CD:127 [facility] 37on 06-01-2023 37 -Reduce Lisinopril t o 10 mg once a day -Will get an ultrasound of your heart -Continue Lasix 40 mg twice a day -Follow-up with Dr. Harrison to discuss watchman -Start Eliquis 2.5 mg twice a day and monitor for more bleeding [facility] Office Visiton 06-01-2023 Follow-up visit [id number] Oscar Cox 1945 [facility] Provider Department Center 06/01/2023 [id number]-OONXDMXHOANATOLIY NOVAK ABILIO [facility] Family History Family history unknown: Yes Level of Service:07064 [place] OFFICE/OUTPATIENT ESTABLISHED MOD MDM 30-39 MIN Reason for Visit and Comments: Follow-up [647513] - Concerns due to increased swelling bilateral legs and also having blood in urine - Eliquis is being held at the moment Normal [facility] Orders Onlyon 06-01-2023 Orders Only [id number] Oscar Cox 1945 [facility] Provider Department Center 06/01/2023 Erika-ELVIN RIVAS ABILIO [facility] Family History Family history unknown: Yes [facility] Reminderson 05-10-2023 Reminders - From: Pennie Bose LPN To: GSN - Clinical; Sent: 05/10/2023 10:13:27 EDT Show up: 03/27/2028 07:00:00 EDT Subject: colonoscopy recall Due Date/Time: 04/26/2028 07:00:00 EDT Reminder/Recall Patient due for surveillance colonoscopy 04/26/2028. Normal [facility] Pathology Noteon 05-03-2023 Pathology Note [id number] 0CD:127 Normal [facility] Outside Colonoscopyon 2022 Outside Colonoscopy [id number] 0CD:127 [facility] Pre-Certification Formon Pre-Certification Form [id number]. 00CD:127 [facility] Consent for Procedure/Surger yon 03-29-2023 Consent for Procedure/Surgery [id number] 0CD:127 [facility] Ambulatory Visit Summaryon 0 03-28-2023 Ambulatory Visit [...] history of colonic polyps Premature beats Normal [facility] CBC AUTO DIFFon 03-01-2023 BASO # 0.0 103/ul Normal 0.0-0.1 [facility] Comment on above: Performed By: #### D ATCBC #### [facility] [address] [place] [address] Dr. Power Covarrubias Basophils/100 WBC (Bld) 0.7 % Normal 0.2-2.0 [facility] Comment on above: Performed By: #### D ATCBC #### [facility] [address] [address] [address] Power Covarrubias EO # 0.1 103/ul Normal 0.0-0.7 [facility] Comment on above: Performed By: #### D ATCBC #### [facility] [address] [place] [address] Dr. Power Covarrubias Eosinophils/100 WBC (Bld) 1.8 % Normal 0.9-7.0 [facility] Comment on above: Performed By: #### D ATCBC #### [facility] [address] [place] [address] Dr. Power Covarrubias Erythrocyte distribution width (RBC) [Ratio] 13.3 % Normal 11.0-15.0 [facility] Comment on above: Performed By: #### D ATCBC #### [facility] [address] [place] [address] Dr. Power Covarrubias Hematocrit (Bld) [Volume fraction] 40.7 % Critically low 42.0-54.0 [facility] Comment on above: Performed By: #### D ATCBC #### [facility] [address] [place] [address] Dr. Power Covarrubias Hemoglobin (Bld) [Mass/Vol] 12.9 g/dL Critically low 14.0-18.0 [facility] Comment on above: Performed By: #### D ATCBC #### [facility] [address] [place] [address] Dr. Power Covarrubias IG # 0.01 10e3/ul Normal 0.00-0.03 [facility] Comment on above: Performed By: #### D ATCBC #### [facility] [address] [place] [address] Dr. Power Covarrubias IG % 0.2 % Normal 0.0-0.5 [facility] Comment on above: Performed By: #### D ATCBC #### [facility] [address] [place] [address] Dr. Power Covarrubias LYMPH # 0.7 103/ul Critically low 1.2-3.8 [facility] Comment on above: Performed By: #### D ATCBC #### [facility] [address] [place] [address] Dr. Power Covarrubias Lymphocytes/100 WBC (Bld) 16.3 % Critically low 20.5-60.0 [facility] Comment on above: Performed By: #### D ATCBC #### [facility] [address] [place] [address] Dr. Power Covarrubias MCH (RBC) [Entitic mass] 29.6 pg Normal 25.9-34.0 [facility] Comment on above: Performed By: #### D ATCBC #### [facility] [address] [address] [address] Power Covarrubias MCHC (RBC) [Mass/Vol] 31.7 g/dL Normal 29.9-35.2 [facility] Comment on above: Performed By: #### D ATCBC #### [facility] [address] [place] [address] Dr. Power Covarrubias MCV (RBC) [Entitic vol] 93.3 fL Normal 80.0-94.0 [facility] Comment on above: Performed By: #### D ATCBC #### [facility] [address] [place] [address] Dr. Power Covarrubias MONO # 0.3 103/ul Normal 0.3-0.8 [facility] Comment on above: Performed By: #### D ATCBC #### [facility] [address] [place] [address] Dr. Power Covarrubias Monocytes/100 WBC (Bld) 7.5 % Normal 1.7-12.0 [facility] Comment on above: Performed By: #### D ATCBC #### [facility] [address] [place] [address] Dr. Power Covarrubias NEUT # 3.4 103/ul Normal 1.4-6.5 [facility] Comment on above: Performed By: #### D ATCBC #### [facility] [address] [place] [address] Dr. Power Covarrubias Neutrophils/100 WBC (Bld) 73.5 % Normal 43.0-75.0 [facility] Comment on above: Performed By: #### D ATCBC #### [facility] [address] [place] [address] Dr. Power Covarrubias Platelet mean volume (Bld) [Entitic vol] 9.9 fL Normal 9.5-13.5 [facility] Comment on above: Performed By: #### D ATCBC #### [facility] [address] [place] [address] Dr. Power Covarrubias PLT 198 103/ul Normal 150-450 [facility] Comment on above: Performed By: #### D ATCBC #### [facility] [address] [address] [address] Power Covarrubias RBC 4.36 106/ul Critically low 4.70-6.10 [facility] Comment on above: Performed By: #### D ATCBC #### [facility] [address] [address] [address] Power Covarrubias WBC 4.6 103/ul Normal 4.0-11.0 [facility] Comment on above: Performed By: #### D ATCBC #### [facility] [address] [address] [address] Power Covarrubias BRE - LIPID PROFILEon 2022 CHOL-HDL RATIO NORM SEE BELOW Normal [facility] Comment on above: Result Comment: 3.3 - 4.4 LOW RISK 4.4 - 7.1 AVERAGE RISK 7.1 - 11.0 MODERATE RISK >11.0 HIGH RISK Performed By: #### D ATLIPI, DATPSA, DATBMP #### [facility] [address] [place] [address] Dr. Power Covarrubias Cholesterol.total/Ch olesterol in HDL [Mass ratio] 2.2 {ratio} Normal [facility] Comment on above: Performed By: #### D ATLIPI, DATPSA, DATBMP #### [facility] [address] [place] [address] Dr. Power Covarrubias BRE- BMP WITH LIPIDon 2022 Anion gap [Moles/Vol] 12.8 mmol/L Normal [facility] Comment on above: Performed By: #### D ATLIPI, DATPSA, DATBMP #### [facility] [address] [address] [address] Power Covarrubias Calcium [Mass/Vol] 9.3 mg/dL Normal 8.5-10.1 [facility] Comment on above: Performed By: #### D ATLIPI, DATPSA, DATBMP #### [facility] [address] [place] [address] Dr. Power Covarrubias Chloride [Moles/Vol] 107 mmol/L Normal 98-107 [facility] Comment on above: Performed By: #### D ATLIPI, DATPSA, DATBMP #### [facility] [address] [place] [address] Dr. Power Covarrubias Cholesterol [Mass/Vol] 123 mg/dL Normal <=200 [facility] Comment on above: Performed By: #### D ATLIPI, DATPSA, DATBMP #### [facility] [address] [address] [address] Power Covarrubias Cholesterol in HDL [Mass/Vol] 56 mg/dL Normal 40-60 [facility] Comment on above: Performed By: #### D ATLIPI, DATPSA, DATBMP #### [facility] [address] [place] [address] Dr. Power Covarrubias Cholesterol in LDL [Mass/Vol] 52.0 mg/dL Normal [facility] Comment on above: Performed By: #### D ATLIPI, DATPSA, DATBMP #### [facility] [address] [place] [address] Dr. Power Covarrubias CO2 [Moles/Vol] 28.7 mmol/L Normal 21.0-32.0 [facility] Comment on above: Performed By: #### D ATLIPI, DATPSA, DATBMP #### [facility] [address] [place] [address] Dr. Power Covarrubias Creatinine [Mass/Vol] 0.93 mg/dL Normal 0.70-1.30 [facility] Comment on above: Performed By: #### D ATLIPI, DATPSA, DATBMP #### [facility] [address] [place] [address] Dr. Power Covarrubias EGFR-AF MICRONESIAN >60 Normal >=60 [facility] Comment on above: Performed By: #### D ATLIPI, DATPSA, DATBMP #### [facility] [address] [place] [address] Dr. Power Covarrubias EGFR-NON AF MICRONESIAN >60 Normal >=60 [facility] Comment on above: Performed By: #### D ATLIPI, DATPSA, DATBMP #### [facility] [address] [address] [address] Power Covarrubias Glucose [Mass/Vol] 97 mg/dL Normal 74-106 [facility] Comment on above: Performed By: #### D ATLIPI, DATPSA, DATBMP #### [facility] [address] [address] [address] Power Covarrubias HDL NORMAL > or = 60 mg/dl - LO W CARDIOVASCULAR RISK <40 mg/dl - HIGH CARDIOVASCULAR RISK Normal [facility] Comment on above: Performed By: #### D ATLIPI, DATPSA, DATBMP #### [facility] [address] [address] [address] Power Covarrubias LDL CALC NORMAL SEE BELOW Normal [facility] Comment on above: Result Comment: <100 mg/dl OPTIMAL 100 - 129 mg/dl NEAR OR ABOVE OPTIMAL 130 - 159 mg/dl BORDERLINE HIGH 160 - 189 mg/dl HIGH >190 mg/dl VERY HIGH Performed By: #### D ATLIPI, DATPSA, DATBMP #### [facility] [address] [address] [address] Pwoer Covarrubias Potassium [Moles/Vol] 3.5 mmol/L Normal 3.5-5.1 [facility] Comment on above: Performed By: #### D ATLIPI, DATPSA, DATBMP #### [facility] [address] [address] [address] Power Covarrubias Sodium [Moles/Vol] 145 mmol/L Normal 136-145 [facility] Comment on above: Performed By: #### D ATLIPI, DATPSA, DATBMP #### [facility] [address] [address] [address] Power Covarrubias Triglyceride [Mass/Vol] 75 mg/dL Normal <=150 [facility] Comment on above: Performed By: #### D ATLIPI, DATPSA, DATBMP #### [facility] [address] [address] [address] Power Covarrubias Urea nitrogen [Mass/Vol] 11.0 mg/dL Normal 7.0-18.0 [facility] Comment on above: Performed By: #### D ATLIPI, DATPSA, DATBMP #### [facility] [address] [place] [address] Dr. Power Covarrubias Urea nitrogen/Creatinine [Mass ratio] 11.8 mg/mg Normal [facility] Comment on above: Performed By: #### D ATLIPI, DATPSA, DATBMP #### [facility] [address] [place] [address] Dr. Power Covarrubias VLDL CALC 15.0 mg/dL Normal [facility] Comment on above: Performed By: #### D ATLIPI, DATPSA, DATBMP #### [facility] [address] [place] [address] Dr. Power Covarrubias GLYCOHEMOGLOBIN A1Con 2022 ADA RECOMMENDATION SEE BELOW Normal [facility] Comment on above: Result Comment: ADA RECOMMENDED LIMIT 4.0 - 6.0 ADA THERAPEUTIC TARGET < 7.0 ACTION SUGGESTED > 7.0 Performed By: #### D ATLIPI, DATPSA, DATBMP #### [facility] [address] [place] [address] Dr. Power Covarrubias Glucose [Mass/Vol] 105 mg/dL Normal [facility] Comment on above: Performed By: #### D ATLIPI, DATPSA, DATBMP #### [facility] [address] [place] [address] Dr. Power Covarrubias HbA1c (Bld) [Mass fraction] 5.3 % Normal 4.5-6.2 [facility] Comment on above: Performed By: #### D ATLIPI, DATPSA, DATBMP #### [facility] [address] [place] [address] Dr. Power Covarrubias CBC AUTO DIFFon 12-10-2022 BASO # 0.0 103/ul Normal 0.0-0.1 [facility] Comment on above: Performed By: #### D ATLIPI, DATPSA, DATBMP #### [facility] [address] [place] [address] Dr. Power Covarrubias Basophils/100 WBC (Bld) 0.4 % Normal 0.2-2.0 [facility] Comment on above: Performed By: #### D ATLIPI, DATPSA, DATBMP #### [facility] [address] [place] [address] Dr. Power Covarrubias EO # 0.2 103/ul Normal 0.0-0.7 [facility] Comment on above: Performed By: #### D ATLIPI, DATPSA, DATBMP #### [facility] [address] [place] [address] Dr. Power Covarrubias Eosinophils/100 WBC (Bld) 3.6 % Normal 0.9-7.0 [facility] Comment on above: Performed By: #### D ATLIPI, DATPSA, DATBMP #### [facility] [address] [place] [address] Dr. Power Covarrubias Erythrocyte distribution width (RBC) [Ratio] 13.5 % Normal 11.0-15.0 [facility] Comment on above: Performed By: #### D ATLIPI, DATPSA, DATBMP #### [facility] [address] [place] [address] Dr. Power Covarrubias Hematocrit (Bld) [Volume fraction] 37.5 % Critically low 42.0-54.0 [facility] Comment on above: Performed By: #### D ATLIPI, DATPSA, DATBMP #### [facility] [address] [place] [address] Dr. Power Covarrubias Hemoglobin (Bld) [Mass/Vol] 12.0 g/dL Critically low 14.0-18.0 [facility] Comment on above: Performed By: #### D ATLIPI, DATPSA, DATBMP #### [facility] [address] [place] [address] Dr. Power Covarrubias IG # 0.02 10e3/ul Normal 0.00-0.03 [facility] Comment on above: Performed By: #### D ATLIPI, DATPSA, DATBMP #### [facility] [address] [place] [address] Dr. Power Covarrubias IG % 0.4 % Normal 0.0-0.5 [facility] Comment on above: Performed By: #### D ATLIPI, DATPSA, DATBMP #### [facility] [address] [place] [address] Dr. Power Covarrubias LYMPH # 0.9 103/ul Critically low 1.2-3.8 [facility] Comment on above: Performed By: #### D ATLIPI, DATPSA, DATBMP #### [facility] [address] [place] [address] Dr. Power Covarrubias Lymphocytes/100 WBC (Bld) 17.7 % Critically low 20.5-60.0 [facility] Comment on above: Performed By: #### D ATLIPI, DATPSA, DATBMP #### [facility] [address] [place] [address] Dr. Power Covarrubias MANUAL DIFF REQ NO Normal [facility] Comment on above: Performed By: #### D ATLIPI, DATPSA, DATBMP #### [facility] [address] [place] [address] Dr. oPwer Covarrubias MCH (RBC) [Entitic mass] 29.7 pg Normal 25.9-34.0 [facility] Comment on above: Performed By: #### D ATLIPI, DATPSA, DATBMP #### [facility] [address] [place] [address] Dr. Power Covarrubias MCHC (RBC) [Mass/Vol] 32.0 g/dL Normal 29.9-35.2 [facility] Comment on above: Performed By: #### D ATLIPI, DATPSA, DATBMP #### [facility] [address] [place] [address] Dr. Power Covarrubias MCV (RBC) [Entitic vol] 92.8 fL Normal 80.0-94.0 [facility] Comment on above: Performed By: #### D ATLIPI, DATPSA, DATBMP #### [facility] [address] [place] [address] Dr. Power Covarrubias MONO # 0.6 103/ul Normal 0.3-0.8 [facility] Comment on above: Performed By: #### D ATLIPI, DATPSA, DATBMP #### [facility] [address] [place] [address] Dr. Power Covarrubias Monocytes/100 WBC (Bld) 11.1 % Normal 1.7-12.0 [facility] Comment on above: Performed By: #### D ATLIPI, DATPSA, DATBMP #### [facility] [address] [place] [address] Dr. Power Covarrubias NEUT # 3.6 103/ul Normal 1.4-6.5 [facility] Comment on above: Performed By: #### D ATLIPI, DATPSA, DATBMP #### [facility] [address] [place] [address] Dr. Power Covarrubias Neutrophils/100 WBC (Bld) 66.8 % Normal 43.0-75.0 [facility] Comment on above: Performed By: #### D ATLIPI, DATPSA, DATBMP #### [facility] [address] [place] [address] Dr. Power Covarrubias Platelet mean volume (Bld) [Entitic vol] 9.8 fL Normal 9.5-13.5 [facility] Comment on above: Performed By: #### D ATLIPI, DATPSA, DATBMP #### [facility] [address] [place] [address] Dr. Power Covarrubias PLT 199 103/ul Normal 150-450 [facility] Comment on above: Performed By: #### D ATLIPI, DATPSA, DATBMP #### [facility] [address] [place] [address] Dr. Power Covarrubias RBC 4.04 106/ul Critically low 4.70-6.10 [facility] Comment on above: Performed By: #### D ATLIPI, DATPSA, DATBMP #### [facility] [address] [place] [address] Dr. Power Covarrubias WBC 5.3 103/ul Normal 4.0-11.0 [facility] Comment on above: Performed By: #### D ATLMACK, DATPSA, DATBMP #### [facility] [address] [place] [address] Dr. Power Covarrubias PROF 14(COMP METB)on 023 Albumin [Mass/Vol] 3.3 g/dL Critically low 3.4-5.0 Th [facility] Comment on above: Performed By: #### C MP #### [facility] [address] [place] [address] Dr. Power Covarrubias Albumin/Globulin [Mass ratio] 0.9 {ratio} Normal [facility] Comment on above: Performed By: #### C MP #### [facility] [address] [place] [address] Dr. Power Covarrubias ALP [Catalytic activity/Vol] 99 U/L Normal 46-116 [facility] Comment on above: Performed By: #### C MP #### [facility] [address] [place] [address] Dr. Power Covarrubias ALT [Catalytic activity/Vol] 17 U/L Normal 16-63 [facility] Comment on above: Performed By: #### C MP #### [facility] [address] [place] [address] Dr. Power Covarrubias Anion gap [Moles/Vol] 11.6 mmol/L Normal [facility] Comment on above: Performed By: #### C MP #### [facility] [address] [place] [address] Dr. Power Covarrubias AST [Catalytic activity/Vol] 15 U/L Normal 15-37 [facility] Comment on above: Performed By: #### C MP #### [facility] [address] [place] [address] Dr. Power Covarrubias Bilirubin [Mass/Vol] 0.6 mg/dL Normal 0.2-1.0 [facility] Comment on above: Performed By: #### C MP #### [facility] [address] [address] [address] Power Covarrubias Calcium [Mass/Vol] 9.4 mg/dL Normal 8.5-10.1 [facility] Comment on above: Performed By: #### C MP #### [facility] [address] [address] [address] Power Covarrubias Chloride [Moles/Vol] 107 mmol/L Normal 98-107 [facility] Comment on above: Performed By: #### C MP #### [facility] [address] [place] [address] Dr. Power Covarrubias CO2 [Moles/Vol] 29.2 mmol/L Normal 21.0-32.0 [facility] Comment on above: Performed By: #### C MP #### [facility] [address] [place] [address] Dr. Power Covarrubias Creatinine [Mass/Vol] 0.87 mg/dL Normal 0.70-1.30 [facility] Comment on above: Performed By: #### C MP #### [facility] [address] [place] [address] Dr. Power Covarrubias EGFR-AF MICRONESIAN >60 Normal >=60 [facility] Comment on above: Performed By: #### C MP #### [facility] [address] [place] [address] Dr. Power Covarrubias EGFR-NON AF MICRONESIAN >60 Normal >=60 [facility] Comment on above: Performed By: #### C MP #### [facility] [address] [address] [address] Power Covarrubias Globulin (S) [Mass/Vol] 3.6 g/dL Normal [facility] Comment on above: Performed By: #### C MP #### [facility] [address] [place] [address] Dr. Power Covarrubias Glucose [Mass/Vol] 107 mg/dL Critically high 74-106 [facility] Comment on above: Performed By: #### C MP #### [facility] [address] [place] [address] Dr. Power Covarrubias Potassium [Moles/Vol] 3.8 mmol/L Normal 3.5-5.1 [facility] Comment on above: Performed By: #### C MP #### [facility] [address] [place] [address] Dr. Power Covarrubias Protein [Mass/Vol] 6.9 g/dL Normal 6.4-8.2 [facility] Comment on above: Performed By: #### C MP #### [facility] [address] [place] [address] Dr. Power Covarrubias Sodium [Moles/Vol] 144 mmol/L Normal 136-145 [facility] Comment on above: Performed By: #### C MP #### [facility] [address] [place] [address] Dr. Power Covarrubias Urea nitrogen [Mass/Vol] 12.0 mg/dL Normal 7.0-18.0 [facility] Comment on above: Performed By: #### C MP #### [facility] [address] [place] [address] Dr. Power Covarrubias Urea nitrogen/Creatinine [Mass ratio] 13.8 mg/mg Normal [facility] Comment on above: Performed By: #### C MP #### [facility] [address] [place] [address] Dr. Power Covarrubias CBC AUTO DIFFon 08-31-2022 BASO # 0.0 103/ul Normal 0.0-0.1 [facility] Comment on above: Performed By: #### D ATLIPI DATPSA, DATBMP #### [facility] [address] [place] [address] Dr. Power Covarrubias Basophils/100 WBC (Bld) 0.7 % Normal 0.2-2.0 [facility] Comment on above: Performed By: #### D ATLIPI, DATPSA, DATBMP #### [facility] [address] [place] [address] Dr. Power Covarrubias EO # 0.2 103/ul Normal 0.0-0.7 [facility] Comment on above: Performed By: #### D ATLIPI, DATPSA, DATBMP #### [facility] [address] [place] [address] Dr. Power Covarrubias Eosinophils/100 WBC (Bld) 3.5 % Normal 0.9-7.0 [facility] Comment on above: Performed By: #### D ATLIPI, DATPSA, DATBMP #### [facility] [address] [place] [address] Dr. Power Covarrubias Erythrocyte distribution width (RBC) [Ratio] 13.2 % Normal 11.0-15.0 [facility] Comment on above: Performed By: #### D ATLIPI, DATPSA, DATBMP #### [facility] [address] [place] [address] Dr. Power Covarrubias Hematocrit (Bld) [Volume fraction] 39.3 % Critically low 42.0-54.0 [facility] Comment on above: Performed By: #### D ATLIPI, DATPSA, DATBMP #### [facility] [address] [place] [address] Dr. Power Covarrubias Hemoglobin (Bld) [Mass/Vol] 12.9 g/dL Critically low 14.0-18.0 [facility] Comment on above: Performed By: #### D ATLIPI, DATPSA, DATBMP #### [facility] [address] [place] [address] Dr. Power Covarrubias IG # 0.02 10e3/ul Normal 0.00-0.03 [facility] Comment on above: Performed By: #### D ATLIPI, DATPSA, DATBMP #### [facility] [address] [place] [address] Dr. Power Covarrubias IG % 0.4 % Normal 0.0-0.5 [facility] Comment on above: Performed By: #### D ATLIPI, DATPSA, DATBMP #### [facility] [address] [place] [address] Dr. Power Covarrubias LYMPH # 0.9 103/ul Critically low 1.2-3.8 [facility] Comment on above: Performed By: #### D ATLIPI, DATPSA, DATBMP #### [facility] [address] [place] [address] Dr. Power Covarrubias Lymphocytes/100 WBC (Bld) 16.4 % Critically low 20.5-60.0 [facility] Comment on above: Performed By: #### D ATLIPI, DATPSA, DATBMP #### [facility] [address] [place] [address] Dr. Power Covarrubias MCH (RBC) [Entitic mass] 30.7 pg Normal 25.9-34.0 [facility] Comment on above: Performed By: #### D ATLIPI, DATPSA, DATBMP #### [facility] [address] [place] [address] Dr. Power Covarrubias MCHC (RBC) [Mass/Vol] 32.8 g/dL Normal 29.9-35.2 [facility] Comment on above: Performed By: #### D ATLIPI, DATPSA, DATBMP #### [facility] [address] [place] [address] Dr. Power Covarrubias MCV (RBC) [Entitic vol] 93.6 fL Normal 80.0-94.0 [facility] Comment on above: Performed By: #### D ATLIPI, DATPSA, DATBMP #### [facility] [address] [place] [address] Dr. Power Covarrubias MONO # 0.5 103/ul Normal 0.3-0.8 [facility] Comment on above: Performed By: #### D ATLIPI, DATPSA, DATBMP #### [facility] [address] [place] [address] Dr. Power Covarrubias Monocytes/100 WBC (Bld) 9.0 % Normal 1.7-12.0 [facility] Comment on above: Performed By: #### D ATLIPI, DATPSA, DATBMP #### [facility] [address] [place] [address] Dr. Power Covarrubias NEUT # 3.8 103/ul Normal 1.4-6.5 [facility] Comment on above: Performed By: #### D ATLIPI, DATPSA, DATBMP #### [facility] [address] [place] [address] Dr. Power Covarrubias Neutrophils/100 WBC (Bld) 70.0 % Normal 43.0-75.0 [facility] Comment on above: Performed By: #### D ATLIPI, DATPSA, DATBMP #### [facility] [address] [place] [address] Dr. Power Covarrubias Platelet mean volume (Bld) [Entitic vol] 9.9 fL Normal 9.5-13.5 [facility] Comment on above: Performed By: #### D ATLIPI, DATPSA, DATBMP #### [facility] [address] [place] [address] Dr. Power Covarrubias PLT 195 103/ul Normal 150-450 [facility] Comment on above: Performed By: #### D ATLIPI, DATPSA, DATBMP #### [facility] [address] [place] [address] Dr. Power Covarrubias RBC 4.20 106/ul Critically low 4.70-6.10 [facility] Comment on above: Performed By: #### D ATLIPI, DATPSA, DATBMP #### [facility] [address] [place] [address] Dr. Power Covarrubias WBC 5.4 103/ul Normal 4.0-11.0 [facility] Comment on above: Performed By: #### D ATLIPI, DATPSA, DATBMP #### [facility] [address] [place] [address] Dr. Power Covarrubias BRE- BMP WITH LIPIDon 2021 Anion gap [Moles/Vol] 10.8 mmol/L Normal [facility] Comment on above: Performed By: #### D ATLIPI, DATPSA, DATBMP #### [facility] [address] [place] [address] Dr. Power Covarrubias Calcium [Mass/Vol] 9.3 mg/dL Normal 8.5-10.1 [facility] Comment on above: Performed By: #### D ATLIPI, DATPSA, DATBMP #### [facility] [address] [address] [address] Power Covarrubias Chloride [Moles/Vol] 105 mmol/L Normal 98-107 [facility] Comment on above: Performed By: #### D ATLIPI, DATPSA, DATBMP #### [facility] [address] [address] [address] Power Covarrubias Cholesterol [Mass/Vol] 123 mg/dL Normal <=200 [facility] Comment on above: Performed By: #### D ATLIPI, DATPSA, DATBMP #### [facility] [address] [place] [address] Dr. Power Covarrubias Cholesterol in HDL [Mass/Vol] 51 mg/dL Normal 40-60 [facility] Comment on above: Performed By: #### D ATLIPI, DATPSA, DATBMP #### [facility] [address] [address] [address] Power Covarrubias Cholesterol in LDL [Mass/Vol] 56.0 mg/dL Normal [facility] Comment on above: Performed By: #### D ATLIPI, DATPSA, DATBMP #### [facility] [address] [address] [address] Power Covarrubias CO2 [Moles/Vol] 28.2 mmol/L Normal 21.0-32.0 The [facility] Comment on above: Performed By: #### D ATLIPI, DATPSA, DATBMP #### [facility] [address] [place] [address] Dr. Power Covarrubias Creatinine [Mass/Vol] 0.86 mg/dL Normal 0.70-1.30 [facility] Comment on above: Performed By: #### D ATLIPI, DATPSA, DATBMP #### [facility] [address] [place] [address] Dr. Power Covarrubias EGFR-AF MICRONESIAN >60 Normal >=60 [facility] Comment on above: Performed By: #### D ATLIPI, DATPSA, DATBMP #### [facility] [address] [address] [address] Power Covarrubias EGFR-NON AF MICRONESIAN >60 Normal >=60 [facility] Comment on above: Performed By: #### D ATLIPI, DATPSA, DATBMP #### [facility] [address] [address] [address] Power Covarrubias Glucose [Mass/Vol] 90 mg/dL Normal 74-106 [facility] Comment on above: Performed By: #### D ATLIPI, DATPSA, DATBMP #### [facility] [address] [address] [address] Power Covarrubias HDL NORMAL > or = 60 mg/dl - LO W CARDIOVASCULAR RISK <40 mg/dl - HIGH CARDIOVASCULAR RISK Normal [facility] Comment on above: Performed By: #### D ATLIPI, DATPSA, DATBMP #### [facility] [address] [address] [address] Power Covarrubias LDL CALC NORMAL SEE BELOW Normal [facility] Comment on above: Result Comment: <100 mg/dl OPTIMAL 100 - 129 mg/dl NEAR OR ABOVE OPTIMAL 130 - 159 mg/dl BORDERLINE HIGH 160 - 189 mg/dl HIGH >190 mg/dl VERY HIGH Performed By: #### D ATLIPI, DATPSA, DATBMP #### [facility] [address] [address] [address] Power Covarrubias Potassium [Moles/Vol] 4.0 mmol/L Normal 3.5-5.1 [facility] Comment on above: Performed By: #### D ATLIPI, DATPSA, DATBMP #### [facility] [address] [address] [address] Power Covarrubias Sodium [Moles/Vol] 140 mmol/L Normal 136-145 [facility] Comment on above: Performed By: #### D ATLIPI, DATPSA, DATBMP #### [facility] [address] [address] [address] Power Covarrubias Triglyceride [Mass/Vol] 80 mg/dL Normal <=150 [facility] Comment on above: Performed By: #### D ATLIPI, DATPSA, DATBMP #### [facility] [address] [place] [address] Dr. Power Covarrubias Urea nitrogen [Mass/Vol] 14.0 mg/dL Normal 7.0-18.0 [facility] Comment on above: Performed By: #### D ATLIPI, DATPSA, DATBMP #### [facility] [address] [place] [address] Dr. Power Covarrubias Urea nitrogen/Creatinine [Mass ratio] 16.3 mg/mg Normal [facility] Comment on above: Performed By: #### D ATLIPI, DATPSA, DATBMP #### [facility] [address] [place] [address] Dr. Power Covarrubias VLDL CALC 16.0 mg/dL Normal [facility] Comment on above: Performed By: #### D ATLIPI, DATPSA, DATBMP #### [facility] [address] [place] [address] Dr. Power Covarrubias OCC BLD IMMUNO SCREENon 06-16 OCCULT BLOOD Negative Normal NEGATIVE [facility] Comment on above: Performed By: #### O BSCRN #### [facility] [address] [place] [address] Dr. Power Covarrubias T4 LABCORPon 06-30-2022 T4 [Mass/Vol] 9.2 ug/dL Normal 4.5-12.0 The [facility] Comment on above: Performed By: #### D ATLIPI, DATPSA, DATBMP #### [facility] [address] [place] [address] Dr. Power Covarrubias CBC AUTO DIFFon 06-29-2022 BASO # 0.0 103/ul Normal 0.0-0.1 [facility] Comment on above: Performed By: #### D ATLIPI, DATPSA, DATBMP #### [facility] [address] [place] [address] Dr. Power Covarrubias Basophils/100 WBC (Bld) 0.5 % Normal 0.2-2.0 [facility] Comment on above: Performed By: #### D ATLIPI, DATPSA, DATBMP #### [facility] [address] [place] [address] Dr. Power Covarrubias EO # 0.1 103/ul Normal 0.0-0.7 [facility] Comment on above: Performed By: #### D ATLIPI, DATPSA, DATBMP #### [facility] [address] [place] [address] Dr. Power Covarrubias Eosinophils/100 WBC (Bld) 2.5 % Normal 0.9-7.0 [facility] Comment on above: Performed By: #### D ATLIPI, DATPSA, DATBMP #### [facility] [address] [place] [address] Dr. Power Covarrubias Erythrocyte distribution width (RBC) [Ratio] 13.4 % Normal 11.0-15.0 [facility] Comment on above: Performed By: #### D ATLIPI, DATPSA, DATBMP #### [facility] [address] [place] [address] Dr. Power Covarrubias Hematocrit (Bld) [Volume fraction] 38.1 % Critically low 42.0-54.0 [facility] Comment on above: Performed By: #### D ATLIPI, DATPSA, DATBMP #### [facility] [address] [place] [address] Dr. Power Covarrubias Hemoglobin (Bld) [Mass/Vol] 12.0 g/dL Critically low 14.0-18.0 [facility] Comment on above: Performed By: #### D ATLIPI, DATPSA, DATBMP #### [facility] [address] [place] [address] Dr. Power Covarrubias IG # 0.01 10e3/ul Normal 0.00-0.03 [facility] Comment on above: Performed By: #### D ATLIPI, DATPSA, DATBMP #### [facility] [address] [place] [address] Dr. Power Covarrubias IG % 0.2 % Normal 0.0-0.5 [facility] Comment on above: Performed By: #### D ATLIPI, DATPSA, DATBMP #### [facility] [address] [place] [address] Dr. Power Covarrubias LYMPH # 0.9 103/ul Critically low 1.2-3.8 [facility] Comment on above: Performed By: #### D ATLIPI, DATPSA, DATBMP #### [facility] [address] [place] [address] Dr. Power Covarrubias Lymphocytes/100 WBC (Bld) 15.5 % Critically low 20.5-60.0 [facility] Comment on above: Performed By: #### D ATLIPI, DATPSA, DATBMP #### [facility] [address] [place] [address] Dr. Power Covarrubias MANUAL DIFF REQ NO Normal [facility] Comment on above: Performed By: #### D ATLIPI, DATPSA, DATBMP #### [facility] [address] [place] [address] Dr. Power Covarrubias MCH (RBC) [Entitic mass] 30.2 pg Normal 25.9-34.0 [facility] Comment on above: Performed By: #### D ATLIPI, DATPSA, DATBMP #### [facility] [address] [place] [address] Dr. Power Covarrubias MCHC (RBC) [Mass/Vol] 31.5 g/dL Normal 29.9-35.2 [facility] Comment on above: Performed By: #### D ATLIPI, DATPSA, DATBMP #### [facility] [address] [place] [address] Dr. Power Covarrubias MCV (RBC) [Entitic vol] 96.0 fL Critically high 80.0-94.0 [facility] Comment on above: Performed By: #### D ATLIPI, DATPSA, DATBMP #### [facility] [address] [place] [address] Dr. Power Covarrubias MONO # 0.5 103/ul Normal 0.3-0.8 [facility] Comment on above: Performed By: #### D ATLIPI, DATPSA, DATBMP #### [facility] [address] [place] [address] Dr. Power Covarrubias Monocytes/100 WBC (Bld) 9.5 % Normal 1.7-12.0 [facility] Comment on above: Performed By: #### D ATLIPI, DATPSA, DATBMP #### [facility] [address] [place] [address] Dr. Power Covarrubias NEUT # 4.1 103/ul Normal 1.4-6.5 [facility] Comment on above: Performed By: #### D ATLIPI, DATPSA, DATBMP #### [facility] [address] [place] [address] Dr. Power Covarrubias Neutrophils/100 WBC (Bld) 71.8 % Normal 43.0-75.0 [facility] Comment on above: Performed By: #### D ATLIPI, DATPSA, DATBMP #### [facility] [address] [place] [address] Dr. Power Covarrubias Platelet mean volume (Bld) [Entitic vol] 9.8 fL Normal 9.5-13.5 [facility] Comment on above: Performed By: #### D ATLIPI, DATPSA, DATBMP #### [facility] [address] [place] [address] Dr. Power Covarrubias PLT 212 103/ul Normal 150-450 [facility] Comment on above: Performed By: #### D ATLIPI, DATPSA, DATBMP #### [facility] [address] [place] [address] Dr. Power Covarrubias RBC 3.97 106/ul Critically low 4.70-6.10 [facility] Comment on above: Performed By: #### D ATLIPI, DATPSA, DATBMP #### [facility] [address] [place] [address] Dr. Power Covarrubias WBC 5.7 103/ul Normal 4.0-11.0 [facility] Comment on above: Performed By: #### D ATLIPI, DATPSA, DATBMP #### [facility] [address] [address] [address] Power Covarrubias FREE T3on 06-29-2022 FREE T3 2.73 pg/mlL Normal 2.18-3.98 [facility] Comment on above: Performed By: #### D ATLIPI, DATPSA, DATBMP #### [facility] [address] [address] [address] Power Covarrubias GLYCOHEMOGLOBIN A1Con 2021 ADA RECOMMENDATION SEE BELOW Normal [facility] Comment on above: Result Comment: ADA RECOMMENDED LIMIT 4.0 - 6.0 ADA THERAPEUTIC TARGET < 7.0 ACTION SUGGESTED > 7.0 Performed By: #### A 1C #### [facility] [address] [place] [address] Dr. Power Covarrubias Glucose [Mass/Vol] 114 mg/dL Normal [facility] Comment on above: Performed By: #### A 1C #### [facility] [address] [place] [address] Dr. Power Covarrubias HbA1c (Bld) [Mass fraction] 5.6 % Normal 4.5-6.2 [facility] Comment on above: Performed By: #### A 1C #### [facility] [address] [place] [address] Dr. Power Covarrubias LIPID PROFILEon 06-29-2022 CHOL-HDL RATIO NORM SEE BELOW Normal [facility] Comment on above: Result Comment: 3.3 - 4.4 LOW RISK 4.4 - 7.1 AVERAGE RISK 7.1 - 11.0 MODERATE RISK >11.0 HIGH RISK Performed By: #### D ATLIPI, DATPSA, DATBMP #### [facility] [address] [place] [address] Dr. Power Covarrubias Cholesterol [Mass/Vol] 110 mg/dL Normal <=200 [facility] Comment on above: Performed By: #### D ATLIPI, DATPSA, DATBMP #### [facility] [address] [place] [address] Dr. Power Covarrubias Cholesterol in HDL [Mass/Vol] 47 mg/dL Normal 40-60 [facility] Comment on above: Performed By: #### D ATLIPI, DATPSA, DATBMP #### [facility] [address] [address] [address] Power Covarrubias Cholesterol in LDL [Mass/Vol] 51.2 mg/dL Normal [facility] Comment on above: Performed By: #### D ATLIPI, DATPSA, DATBMP #### [facility] [address] [address] [address] Power Covarrubias Cholesterol.total/Ch olesterol in HDL [Mass ratio] 2.3 {ratio} Normal [facility] Comment on above: Performed By: #### D ATLIPI, DATPSA, DATBMP #### [facility] [address] [address] [address] Power Covarrubias HDL NORMAL > or = 60 mg/dl - LO W CARDIOVASCULAR RISK <40 mg/dl - HIGH CARDIOVASCULAR RISK Normal [facility] Comment on above: Performed By: #### D ATLIPI, DATPSA, DATBMP #### [facility] [address] [address] [address] Power Covarrubias LDL CALC NORMAL SEE BELOW Normal [facility] Comment on above: Result Comment: <100 mg/dl OPTIMAL 100 - 129 mg/dl NEAR OR ABOVE OPTIMAL 130 - 159 mg/dl BORDERLINE HIGH 160 - 189 mg/dl HIGH >190 mg/dl VERY HIGH Performed By: #### D ATLIPI, DATPSA, DATBMP #### [facility] [address] [address] [address] Power Covarrubias Triglyceride [Mass/Vol] 59 mg/dL Normal <=150 [facility] Comment on above: Performed By: #### D ATLIPI, DATPSA, DATBMP #### [facility] [address] [address] [address] Power Covarrubias VLDL CALC 11.8 mg/dL Normal [facility] Comment on above: Performed By: #### D ATLIPI, DATPSA, DATBMP #### [facility] [address] [place] [address] Dr. Power Covarrubias PROF 14(COMP METB)on 022 Albumin [Mass/Vol] 3.3 g/dL Critically low 3.4-5.0 Th [facility] Comment on above: Performed By: #### D ATLIPI, DATPSA, DATBMP #### [facility] [address] [place] [address] Dr. Power Covarrubias Albumin/Globulin [Mass ratio] 0.9 {ratio} Normal [facility] Comment on above: Performed By: #### D ATLIPI, DATPSA, DATBMP #### [facility] [address] [place] [address] Dr. Power Covarrubias ALP [Catalytic activity/Vol] 100 U/L Normal 46-116 [facility] Comment on above: Performed By: #### D ATLIPI, DATPSA, DATBMP #### [facility] [address] [place] [address] Dr. Power Covarrubias ALT [Catalytic activity/Vol] 16 U/L Normal 16-63 [facility] Comment on above: Performed By: #### D ATLIPI, DATPSA, DATBMP #### [facility] [address] [place] [address] Dr. Power Covarrubias Anion gap [Moles/Vol] 11.4 mmol/L Normal [facility] Comment on above: Performed By: #### D ATLIPI, DATPSA, DATBMP #### [facility] [address] [place] [address] Dr. Power Covarrubias AST [Catalytic activity/Vol] 14 U/L Critically low 15-37 [facility] Comment on above: Performed By: #### D ATLIPI, DATPSA, DATBMP #### [facility] [address] [place] [address] Dr. Power Covarrubias Bilirubin [Mass/Vol] 0.7 mg/dL Normal 0.2-1.0 [facility] Comment on above: Performed By: #### D ATLIPI, DATPSA, DATBMP #### [facility] [address] [address] [address] Power Covarrubias Calcium [Mass/Vol] 9.0 mg/dL Normal 8.5-10.1 [facility] Comment on above: Performed By: #### D ATLIPI, DATPSA, DATBMP #### [facility] [address] [place] [address] Dr. Power Covarrubias Chloride [Moles/Vol] 107 mmol/L Normal 98-107 [facility] Comment on above: Performed By: #### D ATLIPI, DATPSA, DATBMP #### [facility] [address] [place] [address] Dr. Power Covarrubias CO2 [Moles/Vol] 28.5 mmol/L Normal 21.0-32.0 [facility] Comment on above: Performed By: #### D ATLIPI, DATPSA, DATBMP #### [facility] [address] [place] [address] Dr. Power Covarrubias Creatinine [Mass/Vol] 0.87 mg/dL Normal 0.70-1.30 [facility] Comment on above: Performed By: #### D ATLIPI, DATPSA, DATBMP #### [facility] [address] [place] [address] Dr. Power Covarrubias EGFR-AF MICRONESIAN >60 Normal >=60 [facility] Comment on above: Performed By: #### D ATLIPI, DATPSA, DATBMP #### [facility] [address] [place] [address] Dr. Power Covarrubias EGFR-NON AF MICRONESIAN >60 Normal >=60 [facility] Comment on above: Performed By: #### D ATLIPI, DATPSA, DATBMP #### [facility] [address] [place] [address] Dr. Power Covarrubias Globulin (S) [Mass/Vol] 3.6 g/dL Normal [facility] Comment on above: Performed By: #### D ATLIPI, DATPSA, DATBMP #### [facility] [address] [place], [place] [id number] Dr. Power Covarrubias Glucose [Mass/Vol] 90 mg/dL Normal 74-106 [facility] Comment on above: Performed By: #### D ATLIPI, DATPSA, DATBMP #### [facility] [address] [place] [address] Dr. Power Covarrubias Potassium [Moles/Vol] 3.9 mmol/L Normal 3.5-5.1 [facility] Comment on above: Performed By: #### D ATLIPI, DATPSA, DATBMP #### [facility] [address] [address] [address] Power Covarrubias Protein [Mass/Vol] 6.9 g/dL Normal 6.4-8.2 [facility] Comment on above: Performed By: #### D ATLIPI, DATPSA, DATBMP #### [facility] [address] [place] [address] Dr. Power Covarrubias Sodium [Moles/Vol] 143 mmol/L Normal 136-145 [facility] Comment on above: Performed By: #### D ATLIPI, DATPSA, DATBMP #### [facility] [address] [place] [address] Dr. Power Covarrubias Urea nitrogen [Mass/Vol] 13.0 mg/dL Normal 7.0-18.0 [facility] Comment on above: Performed By: #### D ATLIPI, DATPSA, DATBMP #### [facility] [address] [place] [address] Dr. Power Covarrubias Urea nitrogen/Creatinine [Mass ratio] 14.9 mg/mg Normal [facility] Comment on above: Performed By: #### D ATLIPI, DATPSA, DATBMP #### [facility] [address] [place] [address] Dr. Power Covarrubias TSHon 06-29-2022 TSH 2.585 uIU/mL Normal 0.358-3.740 [facility] Comment on above: Performed By: #### T SH, LIPID, FT3, CMP #### [facility] [address] [place] [address] Dr. Power Covarrubias CBC AUTO DIFFon 04-09-2022 BASO # 0.1 103/ul Normal 0.0-0.1 [facility] Comment on above: Performed By: #### D ATCBC #### [facility] [address] [place] [address] Dr. Power Covarrubias Basophils/100 WBC (Bld) 1.0 % Normal 0.2-2.0 [facility] Comment on above: Performed By: #### D ATCBC #### [facility] [address] [place] [address] Dr. Power Covarrubias EO # 0.2 103/ul Normal 0.0-0.7 [facility] Comment on above: Performed By: #### D ATCBC #### [facility] [address] [place] [address] Dr. Power Covarrubias Eosinophils/100 WBC (Bld) 3.7 % Normal 0.9-7.0 [facility] Comment on above: Performed By: #### D ATCBC #### [facility] [address] [place] [address] Dr. Power Covarrubias Erythrocyte distribution width (RBC) [Ratio] 13.3 % Normal 11.0-15.0 [facility] Comment on above: Performed By: #### D ATCBC #### [facility] [address] [place] [address] Dr. Power Covarrubias Hematocrit (Bld) [Volume fraction] 37.8 % Critically low 42.0-54.0 [facility] Comment on above: Performed By: #### D ATCBC #### [facility] [address] [place] [address] Dr. Power Covarrubias Hemoglobin (Bld) [Mass/Vol] 12.4 g/dL Critically low 14.0-18.0 [facility] Comment on above: Performed By: #### D ATCBC #### [facility] [address] [place] [address] Dr. Power Covarrubias IG # 0.01 10e3/ul Normal 0.00-0.03 [facility] Comment on above: Performed By: #### D ATCBC #### [facility] [address] [address] [address] Power Covarrubias IG % 0.2 % Normal 0.0-0.5 [facility] Comment on above: Performed By: #### D ATCBC #### [facility] [address] [place] [address] Dr. Power Covarrubias LYMPH # 1.0 103/ul Critically low 1.2-3.8 [facility] Comment on above: Performed By: #### D ATCBC #### [facility] [address] [place] [address] Dr. Power Covarrubias Lymphocytes/100 WBC (Bld) 19.0 % Critically low 20.5-60.0 [facility] Comment on above: Performed By: #### D ATCBC #### [facility] [address] [place] [address] Dr. Power Covarrubias MCH (RBC) [Entitic mass] 30.9 pg Normal 25.9-34.0 [facility] Comment on above: Performed By: #### D ATCBC #### [facility] [address] [place] [address] Dr. Power Covarrubias MCHC (RBC) [Mass/Vol] 32.8 g/dL Normal 29.9-35.2 [facility] Comment on above: Performed By: #### D ATCBC #### [facility] [address] [place] [address] Dr. Power Covarrubias MCV (RBC) [Entitic vol] 94.3 fL Critically high 80.0-94.0 [facility] Comment on above: Performed By: #### D ATCBC #### [facility] [address] [place] [address] Dr. Power Covarrubias MONO # 0.5 103/ul Normal 0.3-0.8 [facility] Comment on above: Performed By: #### D ATCBC #### [facility] [address] [place] [address] Dr. Power Covarrubias Monocytes/100 WBC (Bld) 9.4 % Normal 1.7-12.0 [facility] Comment on above: Performed By: #### D ATCBC #### [facility] [address] [address] [address] Power Covarrubias NEUT # 3.4 103/ul Normal 1.4-6.5 [facility] Comment on above: Performed By: #### D ATCBC #### [facility] [address] [address] [address] Power Covarrubias Neutrophils/100 WBC (Bld) 66.7 % Normal 43.0-75.0 [facility] Comment on above: Performed By: #### D ATCBC #### [facility] [address] [address] [address] Power Covarrubias Platelet mean volume (Bld) [Entitic vol] 9.9 fL Normal 9.5-13.5 [facility] Comment on above: Performed By: #### D ATCBC #### [facility] [address] [address] [address] Power Covarrubias PLT 205 103/ul Normal 150-450 [facility] Comment on above: Performed By: #### D ATCBC #### [facility] [address] [address] [address] Power Covarrubias RBC 4.01 106/ul Critically low 4.70-6.10 [facility] Comment on above: Performed By: #### D ATCBC #### [facility] [address] [address] [address] Power Covarrubias WBC 5.1 103/ul Normal 4.0-11.0 [facility] Comment on above: Performed By: #### D ATCBC #### [facility] [address] [address] [address] Power Covarrubias BRE- BMP WITH LIPIDon 2021 Anion gap [Moles/Vol] 9.5 mmol/L Normal [facility] Comment on above: Performed By: #### D ATLIPI, DATPSA, DATBMP #### [facility] [address] [address] [address] Power Covarrubias Calcium [Mass/Vol] 9.0 mg/dL Normal 8.5-10.1 [facility] Comment on above: Performed By: #### D ATLIPI, DATPSA, DATBMP #### [facility] [address] [address] [address] Power Covarrubias Chloride [Moles/Vol] 108 mmol/L Critically high 98-107 [facility] Comment on above: Performed By: #### D ATLIPI, DATPSA, DATBMP #### [facility] [address] [address] [address] Power Covarrubias Cholesterol [Mass/Vol] 114 mg/dL Normal <=200 [facility] Comment on above: Performed By: #### D ATLIPI, DATPSA, DATBMP #### [facility] [address] [place] [address] Dr. Power Covarrubias Cholesterol in HDL [Mass/Vol] 49 mg/dL Normal 40-60 [facility] Comment on above: Performed By: #### D ATLIPI, DATPSA, DATBMP #### [facility] [address] [place] [address] Dr. Power Covarrubias Cholesterol in LDL [Mass/Vol] 50.4 mg/dL Normal [facility] Comment on above: Performed By: #### D ATLIPI, DATPSA, DATBMP #### [facility] [address] [place] [address] Dr. Power Covarrubias CO2 [Moles/Vol] 28.3 mmol/L Normal 21.0-32.0 [facility] Comment on above: Performed By: #### D ATLIPI, DATPSA, DATBMP #### [facility] [address] [place] [address] Dr. Power Covarrubias Creatinine [Mass/Vol] 0.88 mg/dL Normal 0.70-1.30 [facility] Comment on above: Performed By: #### D ATLIPI, DATPSA, DATBMP #### [facility] [address] [place] [address] Dr. Power Covarrubias EGFR-AF MICRONESIAN >60 Normal >=60 [facility] Comment on above: Performed By: #### D ATLIPI, DATPSA, DATBMP #### [facility] [address] [address] [address] Power Covarrubias EGFR-NON AF MICRONESIAN >60 Normal >=60 [facility] Comment on above: Performed By: #### D ATLIPI, DATPSA, DATBMP #### [facility] [address] [address] [address] Power Covarrubias Glucose [Mass/Vol] 107 mg/dL Critically high 74-106 [facility] Comment on above: Performed By: #### D ATLIPI, DATPSA, DATBMP #### [facility] [address] [address] [address] Power Covarrubias HDL NORMAL > or = 60 mg/dl - LO W CARDIOVASCULAR RISK <40 mg/dl - HIGH CARDIOVASCULAR RISK Normal [facility] Comment on above: Performed By: #### D ATLIPI, DATPSA, DATBMP #### [facility] [address] [address] [address] Power Covarrubias LDL CALC NORMAL SEE BELOW Normal [facility] Comment on above: Result Comment: <100 mg/dl OPTIMAL 100 - 129 mg/dl NEAR OR ABOVE OPTIMAL 130 - 159 mg/dl BORDERLINE HIGH 160 - 189 mg/dl HIGH >190 mg/dl VERY HIGH Performed By: #### D ATLIPI, DATPSA, DATBMP #### [facility] [address] [address] [address] Power Covarrubias Potassium [Moles/Vol] 3.8 mmol/L Normal 3.5-5.1 [facility] Comment on above: Performed By: #### D ATLIPI, DATPSA, DATBMP #### [facility] [address] [address] [address] Power Covarrubias Sodium [Moles/Vol] 142 mmol/L Normal 136-145 [facility] Comment on above: Performed By: #### D ATLIPI, DATPSA, DATBMP #### [facility] [address] [address] [address] Power Covarrubias Triglyceride [Mass/Vol] 73 mg/dL Normal <=150 [facility] Comment on above: Performed By: #### D ATLIPI, DATPSA, DATBMP #### [facility] [address] [address] [address] Power Covarrubias Urea nitrogen [Mass/Vol] 12.0 mg/dL Normal 7.0-18.0 [facility] Comment on above: Performed By: #### D ATLIPI, DATPSA, DATBMP #### [facility] [address] [address] [address] Power Covarrubias Urea nitrogen/Creatinine [Mass ratio] 13.6 mg/mg Normal [facility] Comment on above: Performed By: #### D ATLIPI, DATPSA, DATBMP #### [facility] [address] [address] [address] Power Covarrubias VLDL CALC 14.6 mg/dL Normal [facility] Comment on above: Performed By: #### D ATLIPI, DATPSA, DATBMP #### [facility] [address] [address] [address] Power Covarrubias Cardiovascular Lab Reporton 07-03-2020 Cardiovascular Lab Report [facility] Patient Name: Oscar Cox [facility] MR #: [id number] Physician: Shiloh Hester Department of M.D. Medicine Service Date: 07/03/2020 Division of Birthdate: 1945 Cardiology Room #: Adult Cardiovascular Services [address] [address] Cardiovascular Laboratory Report FINAL IMPRESSIONS: 1. Homq-sm-idfrbfky 3-vessel coronary artery disease. 2. Tufa-xe-hpuifmhv left main coronary artery disease that appears [...] Follow up with Dr. Hester in the [facility] in the next 1 to 2 [...] to access the left radial artery. A 6-Thai glide sheath was inserted without difficulty. Resistance [...] Hester M.D. Date Trans: 07/03/2020 02:42 P/anibal [id number] cc: Neo Gould M.D. [address], [facility] [place] [address] [facility] Vital Signs Date Time Vital Sign Value Performing Clinician Luis Fernandoi shantell 03-28-2023 14:23-0400 Blood Pressure Location Zhang DENSIE [facility] 03-28-2023 14:23-0400 Diastolic blood pressure 60 mm[Hg] Zhang DENISE [facility] 03-28-2023 14:23-0400 Heart rate 60 /min Zhang DENISE [facility] 03-28-2023 14:23-0400 Respiratory rate 16 /min Zhang DENISE [facility] 03-28-2023 14:23-0400 Systolic blood pressure 116 mm[Hg] [facility] Encounter Date Encounter Type Care Provider Facility Start: 04-02-2024 End: 04-02-2024 ambulatory TNIY TRAVIS Not Available Start: 03-19-2024 End: 03-19-2024 ambulatory Zhang DENISE Facility:[facility] Start: 03-05-2024 End: 03-05-2024 ambulatory FELICIA TAPIA [facility] [place] [facility] Start: 02-19-2024 End: 02-19-[address] [facility] Start: 12-13-2023 End: 12-13-[address] [facility] Start: 11-27-2023 End: 11-27-2023 [facility] Start: 09-13-2023 ambulatory Ghislaine Morales Facility:[facility] [place] Start: 06-15-2023 ambulatory Zhang DENISE Facility:[facility] Start: 06-01-2023 End: 06-01-2023 [facility]: 05-09-2023 ambulatory Zhang DENISE Facility :[facility] [place] Start: 04-26-2023 End: 04-27-2023 ambulatory Zhang DENISE Facility:[id number] Start: 03-28-2023 End: 03-29-2023 ambulatory Zhang [...] By: #### D ATLIPI, DATPSA, DATBMP #### [facility] [address] [place], [place] [address] Dr. Power Covarrubias Start: 08-31-2022 PSA screening PEBBLES B [facility] Comment on above: Performed By: #### D ATLIPI, DATPSA, DATBMP #### [facility] [address] [place], [place] [address] Dr. Power Covarrubias Start: 06-29-2022 PSA screening PEBBLES B OES Comment on above: Performed By: #### P SASC #### [facility] [id number] Power Covarrubias Start: 10-04-2017 Colonoscopy Zhang NG Excision of lumbar intervertebral disc Zhang HOWIE Comment on above: L5 Repair of hip Zhang DENISE Immunizations Immunization Date Immunization Notes Care Provider Fa cili 04-29-2021 SARS-CoV-2 (COVID-19 ) mRNA BNT-162b2 vax Zhang NILL [facility] 04-09-2021 SARS-CoV-2 (COVID-19 ) mRNA BNT-162b2 vax Zhang NILL [facility] Payers Date Payer Category Payer Self-pay 1959 Unknown [id number] 1945 Unknown [id number] 2.16.84 [id number] 1945 Unknown [id number] 2.16.84 [id number] 1945 Unknown [id number] 2.16.8 [id number] 1945 Unknown [id number] 2.16.8 [id number] 1945 Unknown [id number] 2.16.8 [id number] 1945 Unknown [id number] 2.16.8 [id number] 1945 Unknown [id number] 2.16.8 [id number] 1945 Unknown [id number] 2.16.8 [id number] 1945 Unknown [id number] 2.16.84 [id number] 1945 Unknown [id number] 2.16.84 [id number] Unknown [id number] 2.16.84 [id number] Unknown [id number] 2.16.84 [id number] Unknown [id number] 2.16.84 [id number] Social History Date Type Detail Facility Start: 03-28-2023 Tobacco smoking status Never s moked tobacco (finding) [facility] Tobacco smoking status Never [facility] Sex Assigned At Male [facility] Functional Status Date Assessment Result Facility 03-28-2023 Functional Status N/A [facility] Progress note 02-19-2024 Note Date & Type Note Facility 02-19-2024 Note [facility] Note Chief Complaint: Patient here for follow up [facility] for elevated troponin and bradycardia. He [...] 07/03/2020 Cardiovascular Laboratory Report FINAL IMPRESSIONS: 1. Zzih-ne-xglgrezs 3-vessel coronary artery disease. 2. Egkn-jh-yaplogjx left main coronary artery disease that appears unchanged from prior angiography. 3. Normal global left ventricular (more content not included)... [facility] Progress note 12-13-2023 Note Date & Type Note Facility 12-13-2023 Note [facility] Cardiology Clinic Note Chief Complaint: Patient [...] 07/03/2020 Cardiovascular Laboratory Report FINAL IMPRESSIONS: 1. Hwig-tu-obhfledg 3-vessel coronary artery disease. 2. Ykal-ft-ulxqqhru left main coronary artery disease that appears [...] atrium is sever (more content not included)... 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 His primary nitrate operator is Dr Shiloh Hester. He has [...] Latest known visit (more content not included)... [facility] Progress note 06-01-2023 Note Date & [...] month ago He was admitted 04/28-05/02 at [facility] following the last fall and [...] bradycardia during ho (more content not included)... [facility] Clinical Note 03-28-2023 Note Date & [...] consent obtained. 2. Chronic anticoagulation (Z79.01: intermediate designer (current) use of anticoagulants) hold Eliquis 2 [...] SARS-CoV-2 (COVID-19) mRNA BNT-162b2 vax 04/09/2021 Recorded [facility] Comment on above: Result Comment: Elec tronically Signed By: HOWIE LOPEZ, Zhang Yan\Date and Time Signed: 03/28/23 20:17 EDT Evaluation + Plan note Note Date & Type Note Facility Evaluation + Plan note No data available for this section [facility] Discharge instructions Note Date & Type Note Facility Hospital Discharge instructions No data available for this section [facility] Progress note Note Date & Type Note Facility Progress note No data available for this section [facility] Summary Purpose Family History No Family History [...] and content) DATE CREATED AUTHOR 07/07/2020 [facility] DATE CREATED AUTHOR AUTHOR'S ORGANIZ ATION 03/02/2023 [facility] DATE CREATED AUTHOR AUTHOR'S ORGANIZ ATION 03/08/2024 [facility] DATE CREATED AUTHOR AUTHOR'S ORGANIZ ATION 03/12/2024 [facility] DATE CREATED AUTHOR AUTHOR'S ORGANIZ ATION 04/04/2024 [facility] EPIC DATE CREATED AUTHOR AUTHOR'S ORGANIZ ATION 04/09/2024 [facility] Patient Care team informatio n (unrecognized section and content) Personnel Name: Neo Gould MD Address: Address: [address] [place], [place] [address] FOR RECORDS PERTAINING TO PATIENTS WHO ARE [...] BE BASED ON THE PRIMARY CLINICAL RECORDS. [facility]. provides no warranty or guarantee of the accuracy or completeness of information in this document.
[2024-06-27 15:34] LABS: Estimated Average Glucose 105 mg/dL; Glycohemoglobin A1C 5.3 % (4.5-6.2)
[2024-06-27 16:05] LABS: Alanine Aminotransferase 26 U/L (16-63); Albumin Globulin Ratio 1.1; Albumin Level 3.3 g/dL (3.4-5.0); Alkaline Phosphatase 108 U/L (46-116); Anion Gap 9.8; Aspartate Amino Transferase 20 U/L (15-37); BUN Creatinine Ratio 14.1; Bilirubin Total 0.6 mg/dL (0.2-1.0); Calcium 9.4 mg/dL (8.5-10.1); Chloride 109 mmol/L (98-107); Chol HDL Ratio 1.8; Cholesterol 107 mg/dL (<=200); Estimated GFR (African America >60 (>=60); Estimated GFR (Non-African Ame >60 (>=60); Free T3 2.91 pg/mL (2.18-3.98); Globulin 3.1 g/dL; Glucose 97 mg/dL (74-106); HDL Cholesterol 61 mg/dL (40-60); Potassium 3.8 mmol/L (3.5-5.1); Sodium 145 mmol/L (136-145); Thyroid Stimulating Hormone 2.801 uIU/mL (0.358-3.740); Total Protein 6.4 g/dL (6.4-8.2); Triglycerides 54 mg/dL (<=150); VLDL CHOLESTEROL 10.8 mg/dL
== END 2024-06-27 15:05 | disposition home or self-care (01) ==
LOC: LAB 15:04
PROVIDERS: PCP Family Medicine; Visit Provider Family Medicine
DX: E78.5 Hyperlipidemia, unspecified (principal); I25.10 Atherosclerotic heart disease of native coronary artery without angina pectoris; I48.91 Unspecified atrial fibrillation; I10 Essential (primary) hypertension; J44.9 Chronic obstructive pulmonary disease, unspecified; N63.20 Unspecified lump in the left breast, unspecified quadrant; D50.9 Iron deficiency anemia, unspecified; R53.83 Other fatigue
CPT/HCPCS: 36415; 80053; 80061; 83036; 84436; 84443; 84481; 85025

== ENCOUNTER 2024-07-03 14:32 | Outpatient (OUT) | payer MEDICARE, SELFPAY ==
[2024-07-03 14:46] LABS: Basophils Percent Auto 0.6 % (0.2-2.0); Eosinophils Absolute Auto 0.2 10^3/uL (0.0-0.7); Eosinophils Percent Auto 2.9 % (0.9-7.0); Hematocrit 34.3 % (42.0-54.0); Hemoglobin 10.6 g/dL (14.0-18.0); Immature Granulocytes Abs Auto 0.01 10^3/uL (0.00-0.03); Immature Granulocytes Pct Auto 0.2 % (0.0-0.5); Mean Corpuscular HGB Conc 30.9 g/dL (29.9-35.2); Mean Corpuscular Hemoglobin 30.1 pg (25.9-34.0); Mean Corpuscular Volume 97.4 fL (80.0-94.0); Mean Platelet Volume 10.3 fL (9.5-13.5); Monocytes Absolute Auto 0.5 10^3/uL (0.3-0.8); Monocytes Percent Auto 9.5 % (1.7-12.0); Neutrophils Absolute Auto 3.5 10^3/uL (1.4-6.5); Neutrophils Percent Auto 67.8 % (43.0-75.0); Platelet Count 170 10^3/uL (150-450); Red Blood Count 3.52 10^6/uL (4.70-6.10); Red Cell Distribution Width 14.3 % (11.0-15.0); White Blood Count 5.2 10^3/uL (4.0-11.0)
[2024-07-03 15:35] LABS: Alanine Aminotransferase 18 U/L (16-63); Albumin Level 3.3 g/dL (3.4-5.0); Alkaline Phosphatase 105 U/L (46-116); Anion Gap 6.2; Aspartate Amino Transferase 16 U/L (15-37); BUN Creatinine Ratio 15.1; Bilirubin Total 0.8 mg/dL (0.2-1.0); Calcium 9.4 mg/dL (8.5-10.1); Carbon Dioxide 32.4 mmol/L (21.0-32.0); Chloride 104 mmol/L (98-107); Estimated GFR (African America >60 (>=60); Estimated GFR (Non-African Ame >60 (>=60); Globulin 3.2 g/dL; Glucose 88 mg/dL (74-106); Potassium 3.6 mmol/L (3.5-5.1); Sodium 139 mmol/L (136-145); Total Protein 6.5 g/dL (6.4-8.2)
== END 2024-07-03 14:33 | disposition home or self-care (01) ==
LOC: LAB 14:32
PROVIDERS: PCP Family Medicine; Visit Provider Family Medicine
DX: I10 Essential (primary) hypertension (principal); R60.0 Localized edema; D50.9 Iron deficiency anemia, unspecified
CPT/HCPCS: 36415; 80053; 83880; 85025

== ENCOUNTER 2024-07-16 09:07 | Day surgery (SDC) | payer MEDICARE, SELFPAY ==
[2024-07-16 09:13] VITALS: PULSE 49; TEMP 36.3; O2SAT 97
[2024-07-16] MEDS: BUPIVACAINE HCL 0.25% PF 25 MG/10 ML VIAL INJ (09:56)
[2024-07-16 09:58] VITALS: BP 135/93; BP 162/69; PULSE 41; PULSE 44; O2SAT 90; O2SAT 92
--- NOTE | 2024-07-16 10:08 | P.ON_ITS ---
Date of procedure: 07/16/24 Pre-op diagnosis: Cervical spondylosis Post-op diagnosis: same as pre-op Procedure: Bilateral Cervical 2/3, 3/4 medial branch block Preop diagnosis includes pain secondary to spondylosis, Postop diagnosis same Under fluoroscopic guidance Solution injected: 2milliliters Marcaine 0.25% Anesthesia :none Immediate complications none Time out process compliant After informed consent obtained from the patient placed in the Pr[employer] proposition . area was prepped and draped in a sterile fashion using betadine .25 gauge spinal needle inserted over each of the above mentioned target areas . [place] were directed towards the target under fluoroscopic guidance . after encountering each of the targets , no indication of intravascular intraneuronal or intrathecal needle tip placement. Then 0 .5 to 1 Milliliter was injected at each level. [place] removed postoperatively. patient transferred to recovery in stable condition to be discharged home after meeting criteria Anesthesia: Local Surgeon: Anastacia Diehl Condition: stable
== END 2024-07-16 10:08 | disposition home or self-care (01) ==
LOC: SURGOUT 09:08
PROVIDERS: PCP Family Medicine; Visit Provider Anesthesiology Pain Medicine
DX: M47.812 Spondylosis without myelopathy or radiculopathy, cervical region (principal)
CPT/HCPCS: 64490; 64491; J0665

== ENCOUNTER 2024-07-18 13:29 | Outpatient (OUT) | payer MEDICARE, SELFPAY ==
--- NOTE | 2024-07-18 13:32 | MM_ITS ---
Patient Name: JACKSON IQBAL MR#: [id number] : 1945 Exam Date: 07/18/2024 Ordering Doctor: DR NEO CARRERA . RADIOLOGY REPORT PROCEDURE: MM TOMOSYNTHESIS DIAGNOSTIC BI, 07/18/2024, 13:33 US BREAST BI COMPLETE, 07/18/2024, 13:59 COMPARISON: None. INDICATIONS: Unspecified Lump In Left Breast N63.20 Calculator Name NCI Breast Cancer Risk Assessment Tool 5 Year Breast Cancer Risk Not Applicable. Lifetime Breast Cancer Risk Not Applicable. Personal Breast Cancer No Personal Ovarian Cancer No Treatments None Family Cancers None LOCATION: The [facility] BREAST COMPOSITION: The breasts are almost entirely fatty. FINDINGS: DIAGNOSTIC CATEGORY 2--BENIGN FINDING: Scattered benign-appearing calcifications are present. RIGHT BREAST: No significant suspicious finding. LEFT BREAST: No significant suspicious finding. No mammographic or ultrasound abnormality to correspond to the patient's palpable abnormality demarcated with a triangle marker upper inner quadrants of both breasts RECOMMENDATIONS: CLINICAL EVALUATION. PLEASE NOTE: A NORMAL MAMMOGRAM DOES NOT EXCLUDE THE POSSIBILITY OF BREAST CANCER. A CLINICALLY SUSPICIOUS PALPABLE LUMP SHOULD BE BIOPSIED. Dictated by: Gal Rogers MD on 07/18/2024 at 15:25 Approved by: Gal Rogers MD on 07/18/2024 at 15:29
--- NOTE | 2024-07-18 13:35 | US_ITS ---
Patient Name: JACKSON IQBAL MR#: [id number] : 1945 Exam Date: 07/18/2024 Ordering Doctor: DR NEO CARRERA . RADIOLOGY REPORT PROCEDURE: MM TOMOSYNTHESIS DIAGNOSTIC BI, 07/18/2024, 13:33 US BREAST BI COMPLETE, 07/18/2024, 13:59 COMPARISON: None. INDICATIONS: Unspecified Lump In Left Breast N63.20 Calculator Name NCI Breast Cancer Risk Assessment Tool 5 Year Breast Cancer Risk Not Applicable. Lifetime Breast Cancer Risk Not Applicable. Personal Breast Cancer No Personal Ovarian Cancer No Treatments None Family Cancers None LOCATION: [facility] BREAST COMPOSITION: The breasts are almost entirely fatty. FINDINGS: DIAGNOSTIC CATEGORY 2--BENIGN FINDING: Scattered benign-appearing calcifications are present. RIGHT BREAST: No significant suspicious finding. LEFT BREAST: No significant suspicious finding. No mammographic or ultrasound abnormality to correspond to the patient's palpable abnormality demarcated with a triangle marker upper inner quadrants of both breasts RECOMMENDATIONS: CLINICAL EVALUATION. PLEASE NOTE: A NORMAL MAMMOGRAM DOES NOT EXCLUDE THE POSSIBILITY OF BREAST CANCER. A CLINICALLY SUSPICIOUS PALPABLE LUMP SHOULD BE BIOPSIED. Dictated by: Gal Rogers MD on 07/18/2024 at 15:25 Approved by: Gal Rogers MD on 07/18/2024 at 15:29
--- OUTSIDE RECORDS SUMMARY | 2024-07-18 13:51 | XMS_ITS | CCD ---
Author Organization [facility] Care Team Providers Care Equal Opportunity Officer Name Role Phone PEBBLES WOODARD Primary Care [...] Attending Unavailable Neo Gould Primary Care Physician [phone] FELICIA TAPIA Attending Unavailable NEO GOULD Referring Unavailable NEO GOULD Primary Care Unavailable Zhang DENISE Attending Unavailable Zhang DENISE Attending Unavailable Zhang DENISE Attending Unavailable NILZhang Alvarez Attending Unavailable Ghislaine Morales Attending Unavailable Neo Gould Referring Unavailable TINY TRAVIS Attending Unavailable TINY TRAVIS Attending Unavailable ANATOLIY NOVAK Attending Unavailable JONATHAN HARRISON Attending Unavailable SHILHO HESTER Attending Unavailable SHILOH HESTER Attending Unavailable Allergies Allergy Classification Reported Allergen(s) Allergy Type Date of Onset Reaction(s) Facility (1 source) No Known Medication Allergies; 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: [No Known Medication Allergies] Propensity to adverse reactions (disorder) [facility] Repository Medications Current Medications Medication [...] Coronary arteriosclerosis; 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] Onset: 12-13-2023 03-15-2023 Chronic Disorders of lipid metabolism (4 sources) Hyperlipidemia, unspecified; 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: [HYPERLIPIDEMIA UNSPECIFIED] Onset: 06-29-2022 Chronic Essential hypertension (3 sources) Hypertensive disorder; 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: [Essential (primary) hypertension] Onset: 05-11-2023 03-15-2023 Chronic Osteoarthritis (4 sources) Primary generalized (osteo)arthritis; 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: [PRIMARY GENERALIZED OSTEOARTHRITIS] Onset: 12-10-2022 Chronic Other aftercare (1 source) Other halfway (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 therapy; 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: [OTH [facility] CURRENT DRUG THERAPY] Onset: 12-14-2022 Episodic Other aftercare (2 sources) Long-term current use of anticoagulant; 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: [intermediate frame tender (current) use of anticoagulants] Onset: 03-28-2023 Episodic [...] scheduled for any surgery. Normal [facility] 36on 03-07-2024 36 PT INFIRMED AND ORDE R SENT Normal [facility] Office Visiton 02-19-2024 Follow-up visit [id number] Oscar Cox 1945 M Date Provider Department Center 02/19/2024 SHILOH SANTACRUZ Family History Family history unknown: Yes Level of Service:90538 [place] OFFICE/OUTPATIENT ESTABLISHED LOW MDM 20 MIN Normal [facility] Office Visiton 12-13-2023 Follow-up visit [id number] Oscar Cox 1945 Date Provider Department Center 12/13/2023 271-DENISHUNGUANAKITOJaclynSHILOH ABILIO [facility] Family History Family history unknown: Yes Level of Service:77869 [place] OFFICE/OUTPATIENT ESTABLISHED MOD MDM 30 MIN [facility] Office Visiton 11-27-2023 Follow-up visit [id number] Oscar Cox 1945 [facility] Provider Department Center 11/27/2023 367-JONATHAN HARRISON ABILIO [facility] Family History Family history unknown: Yes Level of Service:50122 [place] OFFICE/OUTPATIENT ESTABLISHED MOD MDM 30 MIN Normal [facility] Prison Recordson 07-04 Prison Records [id number] CD:[address] [facility] 37on 06-01-2023 37 -Reduce Lisinopril t o 10 mg once a day -Will get an ultrasound of your heart -Continue Lasix 40 mg twice a day -Follow-up with Dr. Harrison to discuss watchman -Start Eliquis 2.5 mg twice a day and monitor for more bleeding [facility] Office Visiton 06-01-2023 Follow-up visit [id number] Oscar Cox 1945 [facility] Provider Department Center 06/01/2023 [id number]-OHMBYVVFKANATOLIY NOVAK ABILIO [facility] Family History Family history unknown: Yes Level of Service:37844 [place] OFFICE/OUTPATIENT ESTABLISHED MOD MDM 30-39 MIN Reason for Visit and Comments: Follow-up [297049] - Concerns due to increased swelling bilateral legs and also having blood in urine - Eliquis is being held at the moment Normal [facility] Orders Onlyon 06-01-2023 Orders Only [id number] Oscar Cox 1945 [facility] Provider Department Center 06/01/2023 Erika-ELVIN RIVAS ABILIO [facility] Family History Family history unknown: Yes [facility] Reminderson 05-10-2023 Reminders - From: Pennie Bose LPN To: GSN - Clinical; Sent: 05/10/2023 10:13:27 EDT Show up: 03/27/2028 07:00:00 EDT Subject: colonoscopy recall Due Date/Time: 04/26/2028 07:00:00 EDT Reminder/Recall Patient due for surveillance colonoscopy 04/26/2028. Normal [facility] Pathology Noteon 05-03-2023 Pathology Note [id number] 0CD:127 Normal [facility] Outside Colonoscopyon 2022 Outside Colonoscopy [id number] 0CD:[address] [facility] Pre-Certification Formon Pre-Certification Form [id number]. 00CD:[address] [facility] Consent for Procedure/Surger yon 03-29-2023 Consent for Procedure/Surgery [id number] 0CD:[address] [facility] Ambulatory Visit Summaryon 0 03-28-2023 Ambulatory [...] of colonic polyps Premature beats Normal [facility] CBC AUTO DIFFon 03-01-2023 BASO # 0.0 103/ul Normal 0.0-0.1 [facility] Comment on above: Performed By: #### D ATCBC #### [facility] [address] [place] [address] Dr. Power Covarrubias Basophils/100 WBC (Bld) 0.7 % Normal 0.2-2.0 [facility] Comment on above: Performed By: #### D ATCBC #### [facility] [address] [address] [address] Power Covarrubias EO # 0.1 103/ul Normal 0.0-0.7 [facility] Comment on above: Performed By: #### D ATCBC #### [facility] [address] [place] [address] Dr. Power Covarrubias Eosinophils/100 WBC (Bld) 1.8 % Normal 0.9-7.0 [facility] Comment on above: Performed By: #### D ATCBC #### [facility] [address] [place] [address] Dr. Power Covarrubias Erythrocyte distribution width (RBC) [Ratio] 13.3 % Normal 11.0-15.0 [facility] Comment on above: Performed By: #### D ATCBC #### [facility] [address] [place] [address] Dr. Power Covarrubias Hematocrit (Bld) [Volume fraction] 40.7 % Critically low 42.0-54.0 [facility] Comment on above: Performed By: #### D ATCBC #### [facility] [address] [place] [address] Dr. Power Covarrubias Hemoglobin (Bld) [Mass/Vol] 12.9 g/dL Critically low 14.0-18.0 [facility] Comment on above: Performed By: #### D ATCBC #### [facility] [address] [place] [address] Dr. Power Covarrubias IG # 0.01 10e3/ul Normal 0.00-0.03 [facility] Comment on above: Performed By: #### D ATCBC #### [facility] [address] [place] [address] Dr. Power Covarrubias IG % 0.2 % Normal 0.0-0.5 [facility] Comment on above: Performed By: #### D ATCBC #### [facility] [address] [place] [address] Dr. Power Covarrubias LYMPH # 0.7 103/ul Critically low 1.2-3.8 [facility] Comment on above: Performed By: #### D ATCBC #### [facility] [address] [place] [address] Dr. Power Covarrubias Lymphocytes/100 WBC (Bld) 16.3 % Critically low 20.5-60.0 [facility] Comment on above: Performed By: #### D ATCBC #### [facility] [address] [place] [address] Dr. Power Covarrubias MCH (RBC) [Entitic mass] 29.6 pg Normal 25.9-34.0 [facility] Comment on above: Performed By: #### D ATCBC #### [facility] [address] [address] [address] Power Covarrubias MCHC (RBC) [Mass/Vol] 31.7 g/dL Normal 29.9-35.2 [facility] Comment on above: Performed By: #### D ATCBC #### [facility] [address] [place] [address] Dr. Power Covarrubias MCV (RBC) [Entitic vol] 93.3 fL Normal 80.0-94.0 [facility] Comment on above: Performed By: #### D ATCBC #### [facility] [address] [place] [address] Dr. Power Covarrubias MONO # 0.3 103/ul Normal 0.3-0.8 [facility] Comment on above: Performed By: #### D ATCBC #### [facility] [address] [place] [address] Dr. Power Covarrubias Monocytes/100 WBC (Bld) 7.5 % Normal 1.7-12.0 [facility] Comment on above: Performed By: #### D ATCBC #### [facility] [address] [place] [address] Dr. Power Covarrubias NEUT # 3.4 103/ul Normal 1.4-6.5 [facility] Comment on above: Performed By: #### D ATCBC #### [facility] [address] [place] [address] Dr. Power Covarrubias Neutrophils/100 WBC (Bld) 73.5 % Normal 43.0-75.0 [facility] Comment on above: Performed By: #### D ATCBC #### [facility] [address] [place] [address] Dr. Power Covarrubias Platelet mean volume (Bld) [Entitic vol] 9.9 fL Normal 9.5-13.5 [facility] Comment on above: Performed By: #### D ATCBC #### [facility] [address] [place] [address] Dr. Power Covarrubias PLT 198 103/ul Normal 150-450 [facility] Comment on above: Performed By: #### D ATCBC #### [facility] [address] [address] [address] Power Covarrubias RBC 4.36 106/ul Critically low 4.70-6.10 [facility] Comment on above: Performed By: #### D ATCBC #### [facility] [address] [address] [address] Power Covarrubias WBC 4.6 103/ul Normal 4.0-11.0 [facility] Comment on above: Performed By: #### D ATCBC #### [facility] [address] [address] [address] Power Covarrubias BRE - LIPID PROFILEon 2022 CHOL-HDL RATIO NORM SEE BELOW Normal [facility] Comment on above: Result Comment: 3.3 - 4.4 LOW RISK 4.4 - 7.1 AVERAGE RISK 7.1 - 11.0 MODERATE RISK >11.0 HIGH RISK Performed By: #### D ATLIPI, DATPSA, DATBMP #### [facility] [address] [place] [address] Dr. Power Covarrubias Cholesterol.total/Ch olesterol in HDL [Mass ratio] 2.2 {ratio} Normal [facility] Comment on above: Performed By: #### D ATLIPI, DATPSA, DATBMP #### [facility] [address] [place] [address] Dr. Power Covarrubias BRE- BMP WITH LIPIDon 2022 Anion gap [Moles/Vol] 12.8 mmol/L Normal [facility] Comment on above: Performed By: #### D ATLIPI, DATPSA, DATBMP #### [facility] [address] [address] [address] Power Covarrubias Calcium [Mass/Vol] 9.3 mg/dL Normal 8.5-10.1 [facility] Comment on above: Performed By: #### D ATLIPI, DATPSA, DATBMP #### [facility] [address] [place] [address] Dr. Power Covarrubias Chloride [Moles/Vol] 107 mmol/L Normal 98-107 [facility] Comment on above: Performed By: #### D ATLIPI, DATPSA, DATBMP #### [facility] [address] [place] [address] Dr. Power Covarrubias Cholesterol [Mass/Vol] 123 mg/dL Normal <=200 [facility] Comment on above: Performed By: #### D ATLIPI, DATPSA, DATBMP #### [facility] [address] [address] [address] Power Covarrubias Cholesterol in HDL [Mass/Vol] 56 mg/dL Normal 40-60 [facility] Comment on above: Performed By: #### D ATLIPI, DATPSA, DATBMP #### [facility] [address] [place] [address] Dr. Power Covarrubias Cholesterol in LDL [Mass/Vol] 52.0 mg/dL Normal [facility] Comment on above: Performed By: #### D ATLIPI, DATPSA, DATBMP #### [facility] [address] [place] [address] Dr. Power Covarrubias CO2 [Moles/Vol] 28.7 mmol/L Normal 21.0-32.0 [facility] Comment on above: Performed By: #### D ATLIPI, DATPSA, DATBMP #### [facility] [address] [place] [address] Dr. Power Covarrubias Creatinine [Mass/Vol] 0.93 mg/dL Normal 0.70-1.30 [facility] Comment on above: Performed By: #### D ATLIPI, DATPSA, DATBMP #### [facility] [address] [place] [address] Dr. Power Covarrubias EGFR-AF FAROESE >60 Normal >=60 [facility] Comment on above: Performed By: #### D ATLIPI, DATPSA, DATBMP #### [facility] [address] [place] [address] Dr. Power Covarrubias EGFR-NON AF FAROESE >60 Normal >=60 [facility] Comment on above: Performed By: #### D ATLIPI, DATPSA, DATBMP #### [facility] [address] [address] [address] Power Covarrubias Glucose [Mass/Vol] 97 mg/dL Normal 74-106 [facility] Comment on above: Performed By: #### D ATLIPI, DATPSA, DATBMP #### [facility] [address] [address] [address] Power Covarrubias HDL NORMAL > or = 60 mg/dl - LO W CARDIOVASCULAR RISK <40 mg/dl - HIGH CARDIOVASCULAR RISK Normal [facility] Comment on above: Performed By: #### D ATLIPI, DATPSA, DATBMP #### [facility] [address] [address] [address] Power Covarrubias LDL CALC NORMAL SEE BELOW Normal [facility] Comment on above: Result Comment: <100 mg/dl OPTIMAL 100 - 129 mg/dl NEAR OR ABOVE OPTIMAL 130 - 159 mg/dl BORDERLINE HIGH 160 - 189 mg/dl HIGH >190 mg/dl VERY HIGH Performed By: #### D ATLIPI, DATPSA, DATBMP #### [facility] [address] [address] [address] Power Covarrubias Potassium [Moles/Vol] 3.5 mmol/L Normal 3.5-5.1 [facility] Comment on above: Performed By: #### D ATLIPI, DATPSA, DATBMP #### [facility] [address] [address] [address] Power Covarrubias Sodium [Moles/Vol] 145 mmol/L Normal 136-145 [facility] Comment on above: Performed By: #### D ATLIPI, DATPSA, DATBMP #### [facility] [address] [address] [address] Power Covarrubias Triglyceride [Mass/Vol] 75 mg/dL Normal <=150 [facility] Comment on above: Performed By: #### D ATLIPI, DATPSA, DATBMP #### [facility] [address] [address] [address] Power Covarrubias Urea nitrogen [Mass/Vol] 11.0 mg/dL Normal 7.0-18.0 [facility] Comment on above: Performed By: #### D ATLIPI, DATPSA, DATBMP #### [facility] [address] [place] [address] Dr. Power Covarrubias Urea nitrogen/Creatinine [Mass ratio] 11.8 mg/mg Normal [facility] Comment on above: Performed By: #### D ATLIPI, DATPSA, DATBMP #### [facility] [address] [place] [address] Dr. Power Covarrubias VLDL CALC 15.0 mg/dL Normal [facility] Comment on above: Performed By: #### D ATLIPI, DATPSA, DATBMP #### [facility] [address] [place] [address] Dr. Power Covarrubias GLYCOHEMOGLOBIN A1Con 2022 ADA RECOMMENDATION SEE BELOW Normal [facility] Comment on above: Result Comment: ADA RECOMMENDED LIMIT 4.0 - 6.0 ADA THERAPEUTIC TARGET < 7.0 ACTION SUGGESTED > 7.0 Performed By: #### D ATLIPI, DATPSA, DATBMP #### [facility] [address] [place] [address] Dr. Power Covarrubias Glucose [Mass/Vol] 105 mg/dL Normal [facility] Comment on above: Performed By: #### D ATLIPI, DATPSA, DATBMP #### [facility] [address] [place] [address] Dr. Power Covarrubias HbA1c (Bld) [Mass fraction] 5.3 % Normal 4.5-6.2 [facility] Comment on above: Performed By: #### D ATLIPI, DATPSA, DATBMP #### [facility] [address] [place] [address] Dr. Power Covarrubias CBC AUTO DIFFon 12-10-2022 BASO # 0.0 103/ul Normal 0.0-0.1 [facility] Comment on above: Performed By: #### D ATLIPI, DATPSA, DATBMP #### [facility] [address] [place] [address] Dr. Power Covarrubias Basophils/100 WBC (Bld) 0.4 % Normal 0.2-2.0 [facility] Comment on above: Performed By: #### D ATLIPI, DATPSA, DATBMP #### [facility] [address] [place] [address] Dr. Power Covarrubias EO # 0.2 103/ul Normal 0.0-0.7 [facility] Comment on above: Performed By: #### D ATLIPI, DATPSA, DATBMP #### [facility] [address] [place] [address] Dr. Power Covarrubias Eosinophils/100 WBC (Bld) 3.6 % Normal 0.9-7.0 [facility] Comment on above: Performed By: #### D ATLIPI, DATPSA, DATBMP #### [facility] [address] [place] [address] Dr. Power Covarrubias Erythrocyte distribution width (RBC) [Ratio] 13.5 % Normal 11.0-15.0 [facility] Comment on above: Performed By: #### D ATLIPI, DATPSA, DATBMP #### [facility] [address] [place] [address] Dr. Power Covarrubias Hematocrit (Bld) [Volume fraction] 37.5 % Critically low 42.0-54.0 [facility] Comment on above: Performed By: #### D ATLIPI, DATPSA, DATBMP #### [facility] [address] [place] [address] Dr. Power Covarrubias Hemoglobin (Bld) [Mass/Vol] 12.0 g/dL Critically low 14.0-18.0 [facility] Comment on above: Performed By: #### D ATLIPI, DATPSA, DATBMP #### [facility] [address] [place] [address] Dr. Power Covarrubias IG # 0.02 10e3/ul Normal 0.00-0.03 [facility] Comment on above: Performed By: #### D ATLIPI, DATPSA, DATBMP #### [facility] [address] [place] [address] Dr. Power Covarrubias IG % 0.4 % Normal 0.0-0.5 [facility] Comment on above: Performed By: #### D ATLIPI, DATPSA, DATBMP #### [facility] [address] [place] [address] Dr. Power Covarrubias LYMPH # 0.9 103/ul Critically low 1.2-3.8 [facility] Comment on above: Performed By: #### D ATLIPI, DATPSA, DATBMP #### [facility] [address] [place] [address] Dr. Power Covarrubias Lymphocytes/100 WBC (Bld) 17.7 % Critically low 20.5-60.0 [facility] Comment on above: Performed By: #### D ATLIPI, DATPSA, DATBMP #### [facility] [address] [place] [address] Dr. oPwer Covarrubias MANUAL DIFF REQ NO Normal [facility] Comment on above: Performed By: #### D ATLIPI, DATPSA, DATBMP #### [facility] [address] [place] [address] Dr. Power Covarrubias MCH (RBC) [Entitic mass] 29.7 pg Normal 25.9-34.0 [facility] Comment on above: Performed By: #### D ATLIPI, DATPSA, DATBMP #### [facility] [address] [place] [address] Dr. Power Covarrubias MCHC (RBC) [Mass/Vol] 32.0 g/dL Normal 29.9-35.2 [facility] Comment on above: Performed By: #### D ATLIPI, DATPSA, DATBMP #### [facility] [address] [place] [address] Dr. Power Covarrubias MCV (RBC) [Entitic vol] 92.8 fL Normal 80.0-94.0 [facility] Comment on above: Performed By: #### D ATLIPI, DATPSA, DATBMP #### [facility] [address] [place] [address] Dr. Power Covarrubias MONO # 0.6 103/ul Normal 0.3-0.8 [facility] Comment on above: Performed By: #### D ATLIPI, DATPSA, DATBMP #### [facility] [address] [place] [address] Dr. Power Covarrubias Monocytes/100 WBC (Bld) 11.1 % Normal 1.7-12.0 [facility] Comment on above: Performed By: #### D ATLIPI, DATPSA, DATBMP #### [facility] [address] [place] [address] Dr. Power Covarrubias NEUT # 3.6 103/ul Normal 1.4-6.5 [facility] Comment on above: Performed By: #### D ATLIPI, DATPSA, DATBMP #### [facility] [address] [place] [address] Dr. Power Covarrubias Neutrophils/100 WBC (Bld) 66.8 % Normal 43.0-75.0 [facility] Comment on above: Performed By: #### D ATLIPI, DATPSA, DATBMP #### [facility] [address] [place] [address] Dr. Power Covarrubias Platelet mean volume (Bld) [Entitic vol] 9.8 fL Normal 9.5-13.5 [facility] Comment on above: Performed By: #### D ATLIPI, DATPSA, DATBMP #### [facility] [address] [place] [address] Dr. Power Covarrubias PLT 199 103/ul Normal 150-450 [facility] Comment on above: Performed By: #### D ATLIPI, DATPSA, DATBMP #### [facility] [address] [place] [address] Dr. Power Covarrubias RBC 4.04 106/ul Critically low 4.70-6.10 [facility] Comment on above: Performed By: #### D ATLIPI, DATPSA, DATBMP #### [facility] [address] [place] [address] Dr. Power Covarrubias WBC 5.3 103/ul Normal 4.0-11.0 [facility] Comment on above: Performed By: #### D ATLMACK, DATPSA, DATBMP #### [facility] [address] [place] [address] Dr. Power Covarrubias PROF 14(COMP METB)on 023 Albumin [Mass/Vol] 3.3 g/dL Critically low 3.4-5.0 [facility] Comment on above: Performed By: #### C MP #### [facility] [address] [place] [address] Dr. Power Covarrubias Albumin/Globulin [Mass ratio] 0.9 {ratio} Normal [facility] Comment on above: Performed By: #### C MP #### [facility] [address] [place] [address] Dr. Power Covarrubias ALP [Catalytic activity/Vol] 99 U/L Normal 46-116 [facility] Comment on above: Performed By: #### C MP #### [facility] [address] [place] [address] Dr. Power Covarrubias ALT [Catalytic activity/Vol] 17 U/L Normal 16-63 [facility] Comment on above: Performed By: #### C MP #### [facility] [address] [place] [address] Dr. Power Covarrubias Anion gap [Moles/Vol] 11.6 mmol/L Normal [facility] Comment on above: Performed By: #### C MP #### [facility] [address] [place] [address] Dr. Power Covarrubias AST [Catalytic activity/Vol] 15 U/L Normal 15-37 [facility] Comment on above: Performed By: #### C MP #### [facility] [address] [place] [address] Dr. Power Covarrubias Bilirubin [Mass/Vol] 0.6 mg/dL Normal 0.2-1.0 [facility] Comment on above: Performed By: #### C MP #### [facility] [address] [address] [address] Power Covarrubias Calcium [Mass/Vol] 9.4 mg/dL Normal 8.5-10.1 [facility] Comment on above: Performed By: #### C MP #### [facility] [address] [address] [address] Power Covarrubias Chloride [Moles/Vol] 107 mmol/L Normal 98-107 [facility] Comment on above: Performed By: #### C MP #### [facility] [address] [place] [address] Dr. Power Covarrubias CO2 [Moles/Vol] 29.2 mmol/L Normal 21.0-32.0 [facility] Comment on above: Performed By: #### C MP #### [facility] [address] [place] [address] Dr. Power Covarrubias Creatinine [Mass/Vol] 0.87 mg/dL Normal 0.70-1.30 [facility] Comment on above: Performed By: #### C MP #### [facility] [address] [place] [address] Dr. Power Covarrubias EGFR-AF FAROESE >60 Normal >=60 [facility] Comment on above: Performed By: #### C MP #### [facility] [address] [place] [address] Dr. Power Covarrubias EGFR-NON AF FAROESE >60 Normal >=60 [facility] Comment on above: Performed By: #### C MP #### [facility] [address] [address] [address] Power Covarrubias Globulin (S) [Mass/Vol] 3.6 g/dL Normal [facility] Comment on above: Performed By: #### C MP #### [facility] [address] [place] [address] Dr. Power Covarrubias Glucose [Mass/Vol] 107 mg/dL Critically high 74-106 [facility] Comment on above: Performed By: #### C MP #### [facility] [address] [place] [address] Dr. Power Covarrubias Potassium [Moles/Vol] 3.8 mmol/L Normal 3.5-5.1 [facility] Comment on above: Performed By: #### C MP #### [facility] [address] [place] [address] Dr. Power Covarrubias Protein [Mass/Vol] 6.9 g/dL Normal 6.4-8.2 [facility] Comment on above: Performed By: #### C MP #### [facility] [address] [place] [address] Dr. Power Covarrubias Sodium [Moles/Vol] 144 mmol/L Normal 136-145 [facility] Comment on above: Performed By: #### C MP #### [facility] [address] [place] [address] Dr. Power Covarrubias Urea nitrogen [Mass/Vol] 12.0 mg/dL Normal 7.0-18.0 [facility] Comment on above: Performed By: #### C MP #### [facility] [address] [place] [address] Dr. Power Covarrubias Urea nitrogen/Creatinine [Mass ratio] 13.8 mg/mg Normal [facility] Comment on above: Performed By: #### C MP #### [facility] [address] [place] [address] Dr. Power Covarrubias CBC AUTO DIFFon 08-31-2022 BASO # 0.0 103/ul Normal 0.0-0.1 [facility] Comment on above: Performed By: #### D ATLIPI DATPSA, DATBMP #### [facility] [address] [place] [address] Dr. Power Covarrubias Basophils/100 WBC (Bld) 0.7 % Normal 0.2-2.0 [facility] Comment on above: Performed By: #### D ATLIPI, DATPSA, DATBMP #### [facility] [address] [place] [address] Dr. Power Covarrubias EO # 0.2 103/ul Normal 0.0-0.7 [facility] Comment on above: Performed By: #### D ATLIPI, DATPSA, DATBMP #### [facility] [address] [place] [address] Dr. Power Covarrubias Eosinophils/100 WBC (Bld) 3.5 % Normal 0.9-7.0 [facility] Comment on above: Performed By: #### D ATLIPI, DATPSA, DATBMP #### [facility] [address] [place] [address] Dr. Power Covarrubias Erythrocyte distribution width (RBC) [Ratio] 13.2 % Normal 11.0-15.0 [facility] Comment on above: Performed By: #### D ATLIPI, DATPSA, DATBMP #### [facility] [address] [place] [address] Dr. Power Covarrubias Hematocrit (Bld) [Volume fraction] 39.3 % Critically low 42.0-54.0 [facility] Comment on above: Performed By: #### D ATLIPI, DATPSA, DATBMP #### [facility] [address] [place] [address] Dr. Power Covarrubias Hemoglobin (Bld) [Mass/Vol] 12.9 g/dL Critically low 14.0-18.0 [facility] Comment on above: Performed By: #### D ATLIPI, DATPSA, DATBMP #### [facility] [address] [place] [address] Dr. Power Covarrubias IG # 0.02 10e3/ul Normal 0.00-0.03 [facility] Comment on above: Performed By: #### D ATLIPI, DATPSA, DATBMP #### [facility] [address] [place] [address] Dr. Power Covarrubias IG % 0.4 % Normal 0.0-0.5 [facility] Comment on above: Performed By: #### D ATLIPI, DATPSA, DATBMP #### [facility] [address] [place] [address] Dr. Power Covarrubias LYMPH # 0.9 103/ul Critically low 1.2-3.8 [facility] Comment on above: Performed By: #### D ATLIPI, DATPSA, DATBMP #### [facility] [address] [place] [address] Dr. Power Covarrubias Lymphocytes/100 WBC (Bld) 16.4 % Critically low 20.5-60.0 [facility] Comment on above: Performed By: #### D ATLIPI, DATPSA, DATBMP #### [facility] [address] [place] [address] Dr. Power Covarrubias MCH (RBC) [Entitic mass] 30.7 pg Normal 25.9-34.0 [facility] Comment on above: Performed By: #### D ATLIPI, DATPSA, DATBMP #### [facility] [address] [place] [address] Dr. Power Covarrubias MCHC (RBC) [Mass/Vol] 32.8 g/dL Normal 29.9-35.2 [facility] Comment on above: Performed By: #### D ATLIPI, DATPSA, DATBMP #### [facility] [address] [place] [address] Dr. Power Covarrubias MCV (RBC) [Entitic vol] 93.6 fL Normal 80.0-94.0 [facility] Comment on above: Performed By: #### D ATLIPI, DATPSA, DATBMP #### [facility] [address] [place] [address] Dr. Power Covarrubias MONO # 0.5 103/ul Normal 0.3-0.8 [facility] Comment on above: Performed By: #### D ATLIPI, DATPSA, DATBMP #### [facility] [address] [place] [address] Dr. Power Covarrubias Monocytes/100 WBC (Bld) 9.0 % Normal 1.7-12.0 [facility] Comment on above: Performed By: #### D ATLIPI, DATPSA, DATBMP #### [facility] [address] [place] [address] Dr. Power Covarrubias NEUT # 3.8 103/ul Normal 1.4-6.5 [facility] Comment on above: Performed By: #### D ATLIPI, DATPSA, DATBMP #### [facility] [address] [place] [address] Dr. Power Covarrubias Neutrophils/100 WBC (Bld) 70.0 % Normal 43.0-75.0 [facility] Comment on above: Performed By: #### D ATLIPI, DATPSA, DATBMP #### [facility] [address] [place] [address] Dr. Power Covarrubias Platelet mean volume (Bld) [Entitic vol] 9.9 fL Normal 9.5-13.5 [facility] Comment on above: Performed By: #### D ATLIPI, DATPSA, DATBMP #### [facility] [address] [place] [address] Dr. Power Covarrubias PLT 195 103/ul Normal 150-450 [facility] Comment on above: Performed By: #### D ATLIPI, DATPSA, DATBMP #### [facility] [address] [place] [address] Dr. Power Covarrubias RBC 4.20 106/ul Critically low 4.70-6.10 [facility] Comment on above: Performed By: #### D ATLIPI, DATPSA, DATBMP #### [facility] [address] [place] [address] Dr. Power Covarrubias WBC 5.4 103/ul Normal 4.0-11.0 [facility] Comment on above: Performed By: #### D ATLIPI, DATPSA, DATBMP #### [facility] [address] [place] [address] Dr. Power Covarrubias BRE- BMP WITH LIPIDon 2021 Anion gap [Moles/Vol] 10.8 mmol/L Normal [facility] Comment on above: Performed By: #### D ATLIPI, DATPSA, DATBMP #### [facility] [address] [place] [address] Dr. Power Covarrubias Calcium [Mass/Vol] 9.3 mg/dL Normal 8.5-10.1 [facility] Comment on above: Performed By: #### D ATLIPI, DATPSA, DATBMP #### [facility] [address] [address] [address] Power Covarrubias Chloride [Moles/Vol] 105 mmol/L Normal 98-107 [facility] Comment on above: Performed By: #### D ATLIPI, DATPSA, DATBMP #### [facility] [address] [address] [address] Power Covarrubias Cholesterol [Mass/Vol] 123 mg/dL Normal <=200 [facility] Comment on above: Performed By: #### D ATLIPI, DATPSA, DATBMP #### [facility] [address] [place] [address] Dr. Power Covarrubias Cholesterol in HDL [Mass/Vol] 51 mg/dL Normal 40-60 [facility] Comment on above: Performed By: #### D ATLIPI, DATPSA, DATBMP #### [facility] [address] [address] [address] Power Covarrubias Cholesterol in LDL [Mass/Vol] 56.0 mg/dL Normal [facility] Comment on above: Performed By: #### D ATLIPI, DATPSA, DATBMP #### [facility] [address] [address] [address] Power Covarrubias CO2 [Moles/Vol] 28.2 mmol/L Normal 21.0-32.0 [facility] Comment on above: Performed By: #### D ATLIPI, DATPSA, DATBMP #### [facility] [address] [place] [address] Dr. Power Covarrubias Creatinine [Mass/Vol] 0.86 mg/dL Normal 0.70-1.30 [facility] Comment on above: Performed By: #### D ATLIPI, DATPSA, DATBMP #### [facility] [address] [place] [address] Dr. Power Covarrubias EGFR-AF FAROESE >60 Normal >=60 [facility] Comment on above: Performed By: #### D ATLIPI, DATPSA, DATBMP #### [facility] [address] [address] [address] Power Covarrubias EGFR-NON AF FAROESE >60 Normal >=60 [facility] Comment on above: Performed By: #### D ATLIPI, DATPSA, DATBMP #### [facility] [address] [address] [address] Power Covarrubias Glucose [Mass/Vol] 90 mg/dL Normal 74-106 [facility] Comment on above: Performed By: #### D ATLIPI, DATPSA, DATBMP #### [facility] [address] [address] [address] Power Covarrubias HDL NORMAL > or = 60 mg/dl - LO W CARDIOVASCULAR RISK <40 mg/dl - HIGH CARDIOVASCULAR RISK Normal [facility] Comment on above: Performed By: #### D ATLIPI, DATPSA, DATBMP #### [facility] [address] [address] [address] Power Covarrubias LDL CALC NORMAL SEE BELOW Normal [facility] Comment on above: Result Comment: <100 mg/dl OPTIMAL 100 - 129 mg/dl NEAR OR ABOVE OPTIMAL 130 - 159 mg/dl BORDERLINE HIGH 160 - 189 mg/dl HIGH >190 mg/dl VERY HIGH Performed By: #### D ATLIPI, DATPSA, DATBMP #### [facility] [address] [address] [address] Power Covarrubias Potassium [Moles/Vol] 4.0 mmol/L Normal 3.5-5.1 [facility] Comment on above: Performed By: #### D ATLIPI, DATPSA, DATBMP #### [facility] [address] [address] [address] Power Covarrubias Sodium [Moles/Vol] 140 mmol/L Normal 136-145 [facility] Comment on above: Performed By: #### D ATLIPI, DATPSA, DATBMP #### [facility] [address] [address] [address] Power Covarrubias Triglyceride [Mass/Vol] 80 mg/dL Normal <=150 [facility] Comment on above: Performed By: #### D ATLIPI, DATPSA, DATBMP #### [facility] [address] [place] [address] Dr. Power Covarrubias Urea nitrogen [Mass/Vol] 14.0 mg/dL Normal 7.0-18.0 [facility] Comment on above: Performed By: #### D ATLIPI, DATPSA, DATBMP #### [facility] [address] [place] [address] Dr. Power Covarrubias Urea nitrogen/Creatinine [Mass ratio] 16.3 mg/mg Normal [facility] Comment on above: Performed By: #### D ATLIPI, DATPSA, DATBMP #### [facility] [address] [place] [address] Dr. Power Covarrubias VLDL CALC 16.0 mg/dL Normal [facility] Comment on above: Performed By: #### D ATLIPI, DATPSA, DATBMP #### [facility] [address] [place] [address] Dr. Power Covarrubias OCC BLD IMMUNO SCREENon 06-16 OCCULT BLOOD Negative Normal NEGATIVE [facility] Comment on above: Performed By: #### O BSCRN #### [facility] [address] [place] [address] Dr. Power Covarrubias T4 LABCORPon 06-30-2022 T4 [Mass/Vol] 9.2 ug/dL Normal 4.5-12.0 [facility] Comment on above: Performed By: #### D ATLIPI, DATPSA, DATBMP #### [facility] [address] [place] [address] Dr. Power Covarrubias CBC AUTO DIFFon 06-29-2022 BASO # 0.0 103/ul Normal 0.0-0.1 [facility] Comment on above: Performed By: #### D ATLIPI, DATPSA, DATBMP #### [facility] [address] [place] [address] Dr. Power Covarrubias Basophils/100 WBC (Bld) 0.5 % Normal 0.2-2.0 [facility] Comment on above: Performed By: #### D ATLIPI, DATPSA, DATBMP #### [facility] [address] [place] [address] Dr. Power Covarrubias EO # 0.1 103/ul Normal 0.0-0.7 [facility] Comment on above: Performed By: #### D ATLIPI, DATPSA, DATBMP #### [facility] [address] [place] [address] Dr. Power Covarrubias Eosinophils/100 WBC (Bld) 2.5 % Normal 0.9-7.0 [facility] Comment on above: Performed By: #### D ATLIPI, DATPSA, DATBMP #### [facility] [address] [place] [address] Dr. Power Covarrubias Erythrocyte distribution width (RBC) [Ratio] 13.4 % Normal 11.0-15.0 [facility] Comment on above: Performed By: #### D ATLIPI, DATPSA, DATBMP #### [facility] [address] [place] [address] Dr. Power Covarrubias Hematocrit (Bld) [Volume fraction] 38.1 % Critically low 42.0-54.0 [facility] Comment on above: Performed By: #### D ATLIPI, DATPSA, DATBMP #### [facility] [address] [place] [address] Dr. Power Covarrubias Hemoglobin (Bld) [Mass/Vol] 12.0 g/dL Critically low 14.0-18.0 [facility] Comment on above: Performed By: #### D ATLIPI, DATPSA, DATBMP #### [facility] [address] [place] [address] Dr. Power Covarrubias IG # 0.01 10e3/ul Normal 0.00-0.03 [facility] Comment on above: Performed By: #### D ATLIPI, DATPSA, DATBMP #### [facility] [address] [place] [address] Dr. Power Covarrubias IG % 0.2 % Normal 0.0-0.5 [facility] Comment on above: Performed By: #### D ATLIPI, DATPSA, DATBMP #### [facility] [address] [place] [address] Dr. Power Covarrubias LYMPH # 0.9 103/ul Critically low 1.2-3.8 [facility] Comment on above: Performed By: #### D ATLIPI, DATPSA, DATBMP #### [facility] [address] [place] [address] Dr. Power Covarrubias Lymphocytes/100 WBC (Bld) 15.5 % Critically low 20.5-60.0 [facility] Comment on above: Performed By: #### D ATLIPI, DATPSA, DATBMP #### [facility] [address] [place] [address] Dr. Power Covarrubias MANUAL DIFF REQ NO Normal [facility] Comment on above: Performed By: #### D ATLIPI, DATPSA, DATBMP #### [facility] [address] [place] [address] Dr. Power Covarrubias MCH (RBC) [Entitic mass] 30.2 pg Normal 25.9-34.0 [facility] Comment on above: Performed By: #### D ATLIPI, DATPSA, DATBMP #### [facility] [address] [place] [address] Dr. Power Covarrubias MCHC (RBC) [Mass/Vol] 31.5 g/dL Normal 29.9-35.2 [facility] Comment on above: Performed By: #### D ATLIPI, DATPSA, DATBMP #### [facility] [address] [place] [address] Dr. Power Covarrubias MCV (RBC) [Entitic vol] 96.0 fL Critically high 80.0-94.0 [facility] Comment on above: Performed By: #### D ATLIPI, DATPSA, DATBMP #### [facility] [address] [place] [address] Dr. Power Covarrubias MONO # 0.5 103/ul Normal 0.3-0.8 [facility] Comment on above: Performed By: #### D ATLIPI, DATPSA, DATBMP #### [facility] [address] [place] [address] Dr. Power Covarrubias Monocytes/100 WBC (Bld) 9.5 % Normal 1.7-12.0 [facility] Comment on above: Performed By: #### D ATLIPI, DATPSA, DATBMP #### [facility] [address] [place] [address] Dr. Power Covarrubias NEUT # 4.1 103/ul Normal 1.4-6.5 [facility] Comment on above: Performed By: #### D ATLIPI, DATPSA, DATBMP #### [facility] [address] [place] [address] Dr. Power Covarrubias Neutrophils/100 WBC (Bld) 71.8 % Normal 43.0-75.0 [facility] Comment on above: Performed By: #### D ATLIPI, DATPSA, DATBMP #### [facility] [address] [place] [address] Dr. Power Covarrubias Platelet mean volume (Bld) [Entitic vol] 9.8 fL Normal 9.5-13.5 [facility] Comment on above: Performed By: #### D ATLIPI, DATPSA, DATBMP #### [facility] [address] [place] [address] Dr. Power Covarrubias PLT 212 103/ul Normal 150-450 [facility] Comment on above: Performed By: #### D ATLIPI, DATPSA, DATBMP #### [facility] [address] [place] [address] Dr. Power Covarrubias RBC 3.97 106/ul Critically low 4.70-6.10 [facility] Comment on above: Performed By: #### D ATLIPI, DATPSA, DATBMP #### [facility] [address] [place] [address] Dr. Power Covarrubias WBC 5.7 103/ul Normal 4.0-11.0 [facility] Comment on above: Performed By: #### D ATLIPI, DATPSA, DATBMP #### [facility] [address] [address] [address] Power Covarrubias FREE T3on 06-29-2022 FREE T3 2.73 pg/mlL Normal 2.18-3.98 [facility] Comment on above: Performed By: #### D ATLIPI, DATPSA, DATBMP #### [facility] [address] [address] [address] Power Covarrubias GLYCOHEMOGLOBIN A1Con 2021 ADA RECOMMENDATION SEE BELOW Normal [facility] Comment on above: Result Comment: ADA RECOMMENDED LIMIT 4.0 - 6.0 ADA THERAPEUTIC TARGET < 7.0 ACTION SUGGESTED > 7.0 Performed By: #### A 1C #### [facility] [address] [place] [address] Dr. Power Covarrubias Glucose [Mass/Vol] 114 mg/dL Normal [facility] Comment on above: Performed By: #### A 1C #### [facility] [address] [place] [address] Dr. Power Covarrubias HbA1c (Bld) [Mass fraction] 5.6 % Normal 4.5-6.2 [facility] Comment on above: Performed By: #### A 1C #### [facility] [address] [place] [address] Dr. Power Covarrubias LIPID PROFILEon 06-29-2022 CHOL-HDL RATIO NORM SEE BELOW Normal [facility] Comment on above: Result Comment: 3.3 - 4.4 LOW RISK 4.4 - 7.1 AVERAGE RISK 7.1 - 11.0 MODERATE RISK >11.0 HIGH RISK Performed By: #### D ATLIPI, DATPSA, DATBMP #### [facility] [address] [place] [address] Dr. Power Covarrubias Cholesterol [Mass/Vol] 110 mg/dL Normal <=200 [facility] Comment on above: Performed By: #### D ATLIPI, DATPSA, DATBMP #### [facility] [address] [place] [address] Dr. Power Covarrubias Cholesterol in HDL [Mass/Vol] 47 mg/dL Normal 40-60 [facility] Comment on above: Performed By: #### D ATLIPI, DATPSA, DATBMP #### [facility] [address] [address] [address] Power Covarrubias Cholesterol in LDL [Mass/Vol] 51.2 mg/dL Normal [facility] Comment on above: Performed By: #### D ATLIPI, DATPSA, DATBMP #### [facility] [address] [address] [address] Power Covarrubias Cholesterol.total/Ch olesterol in HDL [Mass ratio] 2.3 {ratio} Normal [facility] Comment on above: Performed By: #### D ATLIPI, DATPSA, DATBMP #### [facility] [address] [address] [address] Power Covarrubias HDL NORMAL > or = 60 mg/dl - LO W CARDIOVASCULAR RISK <40 mg/dl - HIGH CARDIOVASCULAR RISK Normal [facility] Comment on above: Performed By: #### D ATLIPI, DATPSA, DATBMP #### [facility] [address] [address] [address] Power Covarrubias LDL CALC NORMAL SEE BELOW Normal [facility] Comment on above: Result Comment: <100 mg/dl OPTIMAL 100 - 129 mg/dl NEAR OR ABOVE OPTIMAL 130 - 159 mg/dl BORDERLINE HIGH 160 - 189 mg/dl HIGH >190 mg/dl VERY HIGH Performed By: #### D ATLIPI, DATPSA, DATBMP #### [facility] [address] [address] [address] Power Covarrubias Triglyceride [Mass/Vol] 59 mg/dL Normal <=150 [facility] Comment on above: Performed By: #### D ATLIPI, DATPSA, DATBMP #### [facility] [address] [address] [address] Power Covarrubias VLDL CALC 11.8 mg/dL Normal [facility] Comment on above: Performed By: #### D ATLIPI, DATPSA, DATBMP #### [facility] [address] [place] [address] Dr. Power Covarrubias PROF 14(COMP METB)on 022 Albumin [Mass/Vol] 3.3 g/dL Critically low 3.4-5.0 [facility] Comment on above: Performed By: #### D ATLIPI, DATPSA, DATBMP #### [facility] [address] [place] [address] Dr. Power Covarrubias Albumin/Globulin [Mass ratio] 0.9 {ratio} Normal [facility] Comment on above: Performed By: #### D ATLIPI, DATPSA, DATBMP #### [facility] [address] [place] [address] Dr. Power Covarrubias ALP [Catalytic activity/Vol] 100 U/L Normal 46-116 [facility] Comment on above: Performed By: #### D ATLIPI, DATPSA, DATBMP #### [facility] [address] [place] [address] Dr. Power Covarrubias ALT [Catalytic activity/Vol] 16 U/L Normal 16-63 [facility] Comment on above: Performed By: #### D ATLIPI, DATPSA, DATBMP #### [facility] [address] [place] [address] Dr. Power Covarrubias Anion gap [Moles/Vol] 11.4 mmol/L Normal [facility] Comment on above: Performed By: #### D ATLIPI, DATPSA, DATBMP #### [facility] [address] [place] [address] Dr. Power Covarrubias AST [Catalytic activity/Vol] 14 U/L Critically low 15-37 [facility] Comment on above: Performed By: #### D ATLIPI, DATPSA, DATBMP #### [facility] [address] [place] [address] Dr. Power Covarrubias Bilirubin [Mass/Vol] 0.7 mg/dL Normal 0.2-1.0 [facility] Comment on above: Performed By: #### D ATLIPI, DATPSA, DATBMP #### [facility] [address] [address] [address] Power Covarrubias Calcium [Mass/Vol] 9.0 mg/dL Normal 8.5-10.1 [facility] Comment on above: Performed By: #### D ATLIPI, DATPSA, DATBMP #### [facility] [address] [place] [address] Dr. Power Covarrubias Chloride [Moles/Vol] 107 mmol/L Normal 98-107 [facility] Comment on above: Performed By: #### D ATLIPI, DATPSA, DATBMP #### [facility] [address] [place] [address] Dr. Power Covarrubias CO2 [Moles/Vol] 28.5 mmol/L Normal 21.0-32.0 [facility] Comment on above: Performed By: #### D ATLIPI, DATPSA, DATBMP #### [facility] [address] [place] [address] Dr. Power Covarrubias Creatinine [Mass/Vol] 0.87 mg/dL Normal 0.70-1.30 [facility] Comment on above: Performed By: #### D ATLIPI, DATPSA, DATBMP #### [facility] [address] [place] [address] Dr. Power Covarrubias EGFR-AF FAROESE >60 Normal >=60 [facility] Comment on above: Performed By: #### D ATLIPI, DATPSA, DATBMP #### [facility] [address] [place] [address] Dr. Pwoer Covarrubias EGFR-NON AF FAROESE >60 Normal >=60 [facility] Comment on above: Performed By: #### D ATLIPI, DATPSA, DATBMP #### [facility] [address] [place] [address] Dr. Power Covarrubias Globulin (S) [Mass/Vol] 3.6 g/dL Normal [facility] Comment on above: Performed By: #### D ATLIPI, DATPSA, DATBMP #### [facility] [address] [place], [place] [id number] Dr. Power Covarrubias Glucose [Mass/Vol] 90 mg/dL Normal 74-106 [facility] Comment on above: Performed By: #### D ATLIPI, DATPSA, DATBMP #### [facility] [address] [place] [address] Dr. Power Covarrubias Potassium [Moles/Vol] 3.9 mmol/L Normal 3.5-5.1 [facility] Comment on above: Performed By: #### D ATLIPI, DATPSA, DATBMP #### [facility] [address] [address] [address] Power Covarrubias Protein [Mass/Vol] 6.9 g/dL Normal 6.4-8.2 [facility] Comment on above: Performed By: #### D ATLIPI, DATPSA, DATBMP #### [facility] [address] [place] [address] Dr. Power Covarrubias Sodium [Moles/Vol] 143 mmol/L Normal 136-145 [facility] Comment on above: Performed By: #### D ATLIPI, DATPSA, DATBMP #### [facility] [address] [place] [address] Dr. Power Covarrubias Urea nitrogen [Mass/Vol] 13.0 mg/dL Normal 7.0-18.0 [facility] Comment on above: Performed By: #### D ATLIPI, DATPSA, DATBMP #### [facility] [address] [place] [address] Dr. Power Covarrubias Urea nitrogen/Creatinine [Mass ratio] 14.9 mg/mg Normal [facility] Comment on above: Performed By: #### D ATLIPI, DATPSA, DATBMP #### [facility] [address] [place] [address] Dr. Power Covarrubias TSHon 06-29-2022 TSH 2.585 uIU/mL Normal 0.358-3.740 [facility] Comment on above: Performed By: #### T SH, LIPID, FT3, CMP #### [facility] [address] [place] [address] Dr. Power Covarrubias CBC AUTO DIFFon 04-09-2022 BASO # 0.1 103/ul Normal 0.0-0.1 [facility] Comment on above: Performed By: #### D ATCBC #### [facility] [address] [place] [address] Dr. Power Covarrubias Basophils/100 WBC (Bld) 1.0 % Normal 0.2-2.0 [facility] Comment on above: Performed By: #### D ATCBC #### [facility] [address] [place] [address] Dr. Power Covarrubias EO # 0.2 103/ul Normal 0.0-0.7 [facility] Comment on above: Performed By: #### D ATCBC #### [facility] [address] [place] [address] Dr. Power Covarrubias Eosinophils/100 WBC (Bld) 3.7 % Normal 0.9-7.0 [facility] Comment on above: Performed By: #### D ATCBC #### [facility] [address] [place] [address] Dr. Power Covarrubias Erythrocyte distribution width (RBC) [Ratio] 13.3 % Normal 11.0-15.0 [facility] Comment on above: Performed By: #### D ATCBC #### [facility] [address] [place] [address] Dr. Power Covarrubias Hematocrit (Bld) [Volume fraction] 37.8 % Critically low 42.0-54.0 [facility] Comment on above: Performed By: #### D ATCBC #### [facility] [address] [place] [address] Dr. Power Covarrubias Hemoglobin (Bld) [Mass/Vol] 12.4 g/dL Critically low 14.0-18.0 [facility] Comment on above: Performed By: #### D ATCBC #### [facility] [address] [place] [address] Dr. Power Covarrubias IG # 0.01 10e3/ul Normal 0.00-0.03 [facility] Comment on above: Performed By: #### D ATCBC #### [facility] [address] [address] [address] Power Covarrubias IG % 0.2 % Normal 0.0-0.5 [facility] Comment on above: Performed By: #### D ATCBC #### [facility] [address] [place] [address] Dr. Power Covarrubias LYMPH # 1.0 103/ul Critically low 1.2-3.8 [facility] Comment on above: Performed By: #### D ATCBC #### [facility] [address] [place] [address] Dr. Power Covarrubias Lymphocytes/100 WBC (Bld) 19.0 % Critically low 20.5-60.0 [facility] Comment on above: Performed By: #### D ATCBC #### [facility] [address] [place] [address] Dr. Power Covarrubias MCH (RBC) [Entitic mass] 30.9 pg Normal 25.9-34.0 [facility] Comment on above: Performed By: #### D ATCBC #### [facility] [address] [place] [address] Dr. Power Covarrubias MCHC (RBC) [Mass/Vol] 32.8 g/dL Normal 29.9-35.2 [facility] Comment on above: Performed By: #### D ATCBC #### [facility] [address] [place] [address] Dr. Power Covarrubias MCV (RBC) [Entitic vol] 94.3 fL Critically high 80.0-94.0 [facility] Comment on above: Performed By: #### D ATCBC #### [facility] [address] [place] [address] Dr. Power Covarrubias MONO # 0.5 103/ul Normal 0.3-0.8 [facility] Comment on above: Performed By: #### D ATCBC #### [facility] [address] [place] [address] Dr. Power Covarrubias Monocytes/100 WBC (Bld) 9.4 % Normal 1.7-12.0 [facility] Comment on above: Performed By: #### D ATCBC #### [facility] [address] [address] [address] Power Covarrubias NEUT # 3.4 103/ul Normal 1.4-6.5 [facility] Comment on above: Performed By: #### D ATCBC #### [facility] [address] [address] [address] Power Covarrubias Neutrophils/100 WBC (Bld) 66.7 % Normal 43.0-75.0 [facility] Comment on above: Performed By: #### D ATCBC #### [facility] [address] [address] [address] Power Covarrubias Platelet mean volume (Bld) [Entitic vol] 9.9 fL Normal 9.5-13.5 [facility] Comment on above: Performed By: #### D ATCBC #### [facility] [address] [address] [address] Power Covarrubias PLT 205 103/ul Normal 150-450 [facility] Comment on above: Performed By: #### D ATCBC #### [facility] [address] [address] [address] Power Covarrubias RBC 4.01 106/ul Critically low 4.70-6.10 [facility] Comment on above: Performed By: #### D ATCBC #### [facility] [address] [address] [address] Power Covarrubias WBC 5.1 103/ul Normal 4.0-11.0 [facility] Comment on above: Performed By: #### D ATCBC #### [facility] [address] [address] [address] Power Covarrubias BRE- BMP WITH LIPIDon 2021 Anion gap [Moles/Vol] 9.5 mmol/L Normal [facility] Comment on above: Performed By: #### D ATLIPI, DATPSA, DATBMP #### [facility] [address] [address] [address] Power Covarrubias Calcium [Mass/Vol] 9.0 mg/dL Normal 8.5-10.1 [facility] Comment on above: Performed By: #### D ATLIPI, DATPSA, DATBMP #### [facility] [address] [address] [address] Power Covarrubias Chloride [Moles/Vol] 108 mmol/L Critically high 98-107 [facility] Comment on above: Performed By: #### D ATLIPI, DATPSA, DATBMP #### [facility] [address] [address] [address] Power Covarrubias Cholesterol [Mass/Vol] 114 mg/dL Normal <=200 [facility] Comment on above: Performed By: #### D ATLIPI, DATPSA, DATBMP #### [facility] [address] [place] [address] Dr. Power Covarrubias Cholesterol in HDL [Mass/Vol] 49 mg/dL Normal 40-60 [facility] Comment on above: Performed By: #### D ATLIPI, DATPSA, DATBMP #### [facility] [address] [place] [address] Dr. Power Covarrubias Cholesterol in LDL [Mass/Vol] 50.4 mg/dL Normal [facility] Comment on above: Performed By: #### D ATLIPI, DATPSA, DATBMP #### [facility] [address] [place] [address] Dr. Power Covarrubias CO2 [Moles/Vol] 28.3 mmol/L Normal 21.0-32.0 [facility] Comment on above: Performed By: #### D ATLIPI, DATPSA, DATBMP #### [facility] [address] [place] [address] Dr. Power Covarrubias Creatinine [Mass/Vol] 0.88 mg/dL Normal 0.70-1.30 [facility] Comment on above: Performed By: #### D ATLIPI, DATPSA, DATBMP #### [facility] [address] [place] [address] Dr. Power Covarrubias EGFR-AF FAROESE >60 Normal >=60 [facility] Comment on above: Performed By: #### D ATLIPI, DATPSA, DATBMP #### [facility] [address] [address] [address] Power Covarrubias EGFR-NON AF FAROESE >60 Normal >=60 [facility] Comment on above: Performed By: #### D ATLIPI, DATPSA, DATBMP #### [facility] [address] [address] [address] Power Covarrubias Glucose [Mass/Vol] 107 mg/dL Critically high 74-106 [facility] Comment on above: Performed By: #### D ATLIPI, DATPSA, DATBMP #### [facility] [address] [address] [address] Power Covarrubias HDL NORMAL > or = 60 mg/dl - LO W CARDIOVASCULAR RISK <40 mg/dl - HIGH CARDIOVASCULAR RISK Normal [facility] Comment on above: Performed By: #### D ATLIPI, DATPSA, DATBMP #### [facility] [address] [address] [address] Power Covarrubias LDL CALC NORMAL SEE BELOW Normal [facility] Comment on above: Result Comment: <100 mg/dl OPTIMAL 100 - 129 mg/dl NEAR OR ABOVE OPTIMAL 130 - 159 mg/dl BORDERLINE HIGH 160 - 189 mg/dl HIGH >190 mg/dl VERY HIGH Performed By: #### D ATLIPI, DATPSA, DATBMP #### [facility] [address] [address] [address] Power Covarrubias Potassium [Moles/Vol] 3.8 mmol/L Normal 3.5-5.1 [facility] Comment on above: Performed By: #### D ATLIPI, DATPSA, DATBMP #### [facility] [address] [address] [address] Power Covarrubias Sodium [Moles/Vol] 142 mmol/L Normal 136-145 [facility] Comment on above: Performed By: #### D ATLIPI, DATPSA, DATBMP #### [facility] [address] [address] [address] Power Covarrubias Triglyceride [Mass/Vol] 73 mg/dL Normal <=150 [facility] Comment on above: Performed By: #### D ATLIPI, DATPSA, DATBMP #### [facility] [address] [address] [address] Power Covarrubias Urea nitrogen [Mass/Vol] 12.0 mg/dL Normal 7.0-18.0 [facility] Comment on above: Performed By: #### D ATLIPI, DATPSA, DATBMP #### [facility] [address] [address] [address] Power Covarrubias Urea nitrogen/Creatinine [Mass ratio] 13.6 mg/mg Normal [facility] Comment on above: Performed By: #### D ATLIPI, DATPSA, DATBMP #### [facility] [address] [address] [address] Power Covarrubias VLDL CALC 14.6 mg/dL Normal [facility] Comment on above: Performed By: #### D ATLIPI, DATPSA, DATBMP #### [facility] [address] [address] [address] Power Covarrubias Cardiovascular Lab Reporton 07-03-2020 Cardiovascular Lab Report [facility] Patient Name: Oscar Cox [facility] MR #: [id number] Physician: Shiloh Hester Department of M.D. Medicine Service Date: 07/03/2020 Division of Birthdate: 1945 Cardiology Room #: Adult Cardiovascular Services [place] [address] Cardiovascular Laboratory Report FINAL IMPRESSIONS: 1. Ynvz-zs-bqbhcnsi 3-vessel coronary artery disease. 2. Vhgm-vn-qjbflouk left main coronary artery disease that appears [...] with Dr. Hester in the [facility] in the next 1 to 2 [...] to access the left radial artery. A 6-Frisian glide sheath was inserted without difficulty. Resistance [...] Hester M.D. Date Trans: 07/03/2020 02:42 P/anibal [id number] cc: Neo Gould M.D. [address], [facility] [place] [address] [facility] Vital Signs Date Time Vital Sign Value Performing Clinician Luis Fernandoi shantell 03-28-2023 14:23-0400 Blood Pressure Location Zhang DENISE [facility] 03-28-2023 14:23-0400 Diastolic blood pressure 60 mm[Hg] Zhang DENISE [facility] 03-28-2023 14:23-0400 Heart rate 60 /min Zhang DENISE [facility] 03-28-2023 14:23-0400 Respiratory rate 16 /min Zhang DENISE [facility] 03-28-2023 14:23-0400 Systolic blood pressure 116 mm[Hg] [facility] En[facility] Date Encounter Type Care Provider Facility Start: 04-02-2024 End: 04-02-2024 ambulatory TINY TRAVIS Not Available Start: 03-19-2024 End: 03-19-2024 ambulatory Zhang DENISE Facility:[facility] Start: 03-05-2024 End: 03-05-2024 ambulatory FELICIA TAPIA [facility] Start: 02-19-2024 End: 02-19-2024 ambulatory [facility] Start: 12-13-2023 End: 12-13-2023 ambulatory [facility] Start: 11-27-2023 End: 11-27-2023 [facility] Start: 09-13-2023 ambulatory Ghislaine Morales Facility:[facility] [place] Start: 06-15-2023 ambulatory Zhang DENISE Facility:[facility] Start: 06-01-2023 End: [facility] Start: 05-09-[facility]23 ambulatory Zhang DENISE Facility :[facility] [place] Start: 04-26-2023 End: 04-27-2023 ambulatory Zhang DENISE Facility:[id number] Start: 03-28-2023 End: 03-29-2023 ambulatory Zhang [...] By: #### D ATLIPI, DATPSA, DATBMP #### [facility] [address] [place], [place] [address] Dr. Power Covarrubias Start: 08-31-2022 PSA screening [facility] Comment on above: Performed By: #### D ATLIPI, DATPSA, DATBMP #### [facility] [address] [place], [place] [address] Dr. Power Covarrubias Start: 06-29-2022 PSA screening PEBBLES B OES Comment on above: Performed By: #### P SASC #### [facility] [id number] Power Covarrubias Start: 10-04-2017 Colonoscopy Zhang NG Excision of lumbar intervertebral disc Zhang HOWIE Comment on above: L5 Repair of hip Zhang DENISE Immunizations Immunization Date Immunization Notes Care Provider Fa cili 04-29-2021 SARS-CoV-2 (COVID-19 ) mRNA BNT-162b2 vax Zhnag NILL [facility] 04-09-2021 SARS-CoV-2 (COVID-19 ) mRNA BNT-162b2 vax Zhang NILL [facility] Payers Date Payer Category Payer Self-pay 1958 Unknown [id number] 1945 Unknown [id number] 2.16.84 [id number] 1945 Unknown [id number] 2.16.84 [id number] 1945 Unknown [id number] 2.16.8 [id number] 1945 Unknown [id number] 2.16.8 [id number] 1945 Unknown [id number] 2.16.8 [id number] 1945 Unknown [id number] 2.16.8 [id number] 1945 Unknown [id number] 2.16.8 [id number] 1945 Unknown [id number] 2.16.8 [id number] 1945 Unknown [id number] 2.16.84 [id number] 1945 Unknown [id number] 2.16.84 [id number] Unknown [id number] 2.16.84 [id number] Unknown [id number] 2.16.84 [id number] Unknown [id number] 2.16.84 [id number] Social History Date Type Detail Facility Start: 03-28-2023 Tobacco smoking status Never s moked tobacco (finding) [facility] Tobacco smoking status Never [facility] Sex Assigned At Male [facility] Functional Status Date Assessment Result Facility 03-28-2023 Functional Status N/A [facility] Progress note 02-19-2024 Note Date & Type Note Facility 02-19-2024 Note [facility] Cardiology Clinic Note Chief Complaint: Patient here for follow up [facility] for elevated troponin and bradycardia. He [...] 07/03/2020 Cardiovascular Laboratory Report FINAL IMPRESSIONS: 1. Hmun-xm-mjgnhrrl 3-vessel coronary artery disease. 2. Ffeq-ki-epyjmwed left main coronary artery disease that appears unchanged from prior angiography. 3. Normal global left ventricular (more content not included)... [facility] Progress note 12-13-2023 Note Date & Type Note Facility 12-13-2023 Note [facility] Cardiology Clinic Note Chief Complaint: Patient [...] 07/03/2020 Cardiovascular Laboratory Report FINAL IMPRESSIONS: 1. Fzdh-ga-nrdjokql 3-vessel coronary artery disease. 2. Doyk-md-qvanwdnt left main coronary artery disease that appears [...] sever (more content not included)... 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 He has history [...] visit (more content not included)... [facility] Progress note 06-01-2023 Note Date & [...] month ago He was admitted 04/28-05/02 at [facility] following the last fall and has been [...] ho (more content not included)... [facility] Clinical Note 03-28-2023 Note Date & [...] informed consent obtained. 2. Chronic anticoagulation (Z79.01: senior care (current) use of anticoagulants) hold Eliquis 2 [...] (COVID-19) mRNA BNT-162b2 vax 04/09/2021 Recorded [facility] Comment on above: Result Comment: Elec tronically Signed By: HOWIE LOPEZ, Zhang Yan\Date and Time Signed: 03/28/23 20:17 EDT Evaluation + Plan note Note Date & Type Note Facility Evaluation + Plan note No data available for this section [facility] Discharge instructions Note Date & Type Note Facility Hospital Discharge instructions No data available for this section [facility] Progress note Note Date & Type Note Facility Progress note No data available for this section [facility] Summary Purpose Family History No Family History [...] and content) DATE CREATED AUTHOR 07/07/2020 [facility] DATE CREATED AUTHOR AUTHOR'S ORGANIZ ATION 03/02/2023 [facility] DATE CREATED AUTHOR AUTHOR'S ORGANIZ ATION 03/08/2024 [facility] DATE CREATED AUTHOR AUTHOR'S ORGANIZ ATION 03/12/[address] [facility] DATE CREATED AUTHOR AUTHOR'S ORGANIZ ATION 04/04/2024 [facility] EPIC DATE CREATED AUTHOR AUTHOR'S ORGANIZ ATION 04/09/2024 [facility] Patient Care team informatio n (unrecognized section and content) Personnel Name: Neo Gould MD Address: Address: [address] [place], [place] [address] FOR RECORDS PERTAINING TO PATIENTS WHO ARE [...] BE BASED ON THE PRIMARY CLINICAL RECORDS. [facility]. provides no warranty or guarantee of the accuracy or completeness of information in this document.
== END 2024-07-18 13:30 | disposition home or self-care (01) ==
LOC: MAMMO 13:30
PROVIDERS: PCP Family Medicine; Visit Provider Family Medicine
DX: N63.22 Unspecified lump in the left breast, upper inner quadrant (principal)
CPT/HCPCS: 76641; 77066; G0279

== ENCOUNTER 2024-07-24 14:03 | Outpatient (OUT) | payer MEDICARE, SELFPAY ==
--- OUTSIDE RECORDS SUMMARY | 2024-07-24 14:21 | XMS_ITS | CCD ---
Author Organization [facility] Care Team Providers Care Product Development Director Name Role Phone PEBBLES WOODARD Primary Care [...] Attending Unavailable Neo Gould Primary Care Physician [phone] FELICIA TAPIA Attending Unavailable NEO GOULD Referring [...] Medication Allergies] Propensity to adverse reactions (disorder) 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] Onset: 12-13-2023 03-15-2023 Chronic Disorders of lipid metabolism (4 sources) Hyperlipidemia, unspecified; 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: [HYPERLIPIDEMIA UNSPECIFIED] Onset: 06-29-2022 Chronic Essential hypertension (3 sources) Hypertensive disorder; 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: [Essential (primary) hypertension] Onset: 05-11-2023 03-15-2023 Chronic Osteoarthritis (4 sources) Primary generalized (osteo)arthritis; 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: [PRIMARY GENERALIZED OSTEOARTHRITIS] Onset: 12-10-2022 Chronic Other aftercare (1 source) Other usp (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 therapy; 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: [OTH RESIDENTIAL CURRENT DRUG THERAPY] Onset: 12-14-2022 Episodic Other aftercare (2 sources) Long-term current use of anticoagulant; 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: [intermediate manager (current) use of anticoagulants] Onset: 03-28-2023 Episodic [...] scheduled for any surgery. Normal [facility] 36on 03-07-2024 36 PT INFIRMED AND ORDE R SENT Normal [facility] Office Visiton 02-19-2024 Follow-up visit [id number] Oscar Cox 1945 M Date Provider Department Center 02/19/2024 SHILOH SANTACRUZ Family History Family history unknown: Yes Level of Service:22834 [place] OFFICE/OUTPATIENT ESTABLISHED LOW MDM 20 MIN Normal [facility] Office Visiton 12-13-2023 Follow-up visit [id number] Oscar Cox 1945 Date Provider Department Center 12/13/2023 271-DENISHUNGUANAKITOJaclynSHILOH ABILIO [facility] Family History Family history unknown: Yes Level of Service:54475 [place] OFFICE/OUTPATIENT ESTABLISHED MOD MDM 30 MIN [facility] Office Visiton 11-27-2023 Follow-up visit [id number] Oscar Cox 1945 [facility] Provider Department Center 11/27/2023 367-JONATHAN HARRISON ABILIO [facility] Family History Family history unknown: Yes Level of Service:80669 [place] OFFICE/OUTPATIENT ESTABLISHED MOD MDM 30 MIN Normal [facility] Snf Recordson 07-04 Snf Records [id number] CD:127 [facility] 37on 06-01-2023 37 -Reduce Lisinopril t o 10 mg once a day -Will get an ultrasound of your heart -Continue Lasix 40 mg twice a day -Follow-up with Dr. Harrison to discuss watchman -Start Eliquis 2.5 mg twice a day and monitor for more bleeding [facility] Office Visiton 06-01-2023 Follow-up visit [id number] Oscar Cox 1945 [facility] Provider Department Center 06/01/2023 68917-CXUIHPDVRANATOLIY NOVAK ABILIO [facility] Family History Family history unknown: Yes Level of Service:60337 [place] OFFICE/OUTPATIENT ESTABLISHED MOD MDM 30-39 MIN Reason for Visit and Comments: Follow-up [305438] - Concerns due to increased swelling bilateral legs and also having blood in urine - Eliquis is being held at the moment Normal [facility] Orders Onlyon 06-01-2023 Orders Only [id number] Oscar [facility]Cx 1945 [facility] Provider Department Center 06/01/2023 Erika-ELVIN RIVAS ABILIO [facility] Family History Family history unknown: Yes [facility] Reminderson 05-10-2023 Reminders - From: Pennie Bose LPN To: GSN - Clinical; Sent: 05/10/2023 10:13:27 EDT Show up: 03/27/2028 07:00:00 EDT Subject: colonoscopy recall Due Date/Time: 04/26/2028 07:00:00 EDT Reminder/Recall Patient due for surveillance colonoscopy 04/26/2028. Normal [facility] Pathology Noteon 05-03-2023 Pathology Note [id number] 0CD:[address] [facility] Outside Colonoscopyon 2022 Outside Colonoscopy [id number] 0CD:127 [facility] Pre-Certification Formon Pre-Certification Form [id number]. 00CD:127 [facility] Consent for Procedure/Surger yon 03-29-2023 Consent for Procedure/Surgery [id number] 0CD:127 [facility] Ambulatory Visit Summaryon 0 03-28-2023 Ambulatory [...] history of colonic polyps Premature beats Normal [facility] CBC AUTO DIFFon 03-01-2023 BASO # 0.0 103/ul Normal 0.0-0.1 [facility] Comment on above: Performed By: #### D ATCBC #### [facility] [address] [place] [address] Dr. Power Covarrubias Basophils/100 WBC (Bld) 0.7 % Normal 0.2-2.0 [facility] Comment on above: Performed By: #### D ATCBC #### [facility] [address] [address] [address] Power Covarrubias EO # 0.1 103/ul Normal 0.0-0.7 [facility] Comment on above: Performed By: #### D ATCBC #### [facility] [address] [place] [address] Dr. Power Covarrubias Eosinophils/100 WBC (Bld) 1.8 % Normal 0.9-7.0 [facility] Comment on above: Performed By: #### D ATCBC #### [facility] [address] [place] [address] Dr. Power Covarrubias Erythrocyte distribution width (RBC) [Ratio] 13.3 % Normal 11.0-15.0 [facility] Comment on above: Performed By: #### D ATCBC #### [facility] [address] [place] [address] Dr. Power Covarrubias Hematocrit (Bld) [Volume fraction] 40.7 % Critically low 42.0-54.0 [facility] Comment on above: Performed By: #### D ATCBC #### [facility] [address] [place] [address] Dr. Power Covarrubias Hemoglobin (Bld) [Mass/Vol] 12.9 g/dL Critically low 14.0-18.0 [facility] Comment on above: Performed By: #### D ATCBC #### [facility] [address] [place] [address] Dr. Power Covarrubias IG # 0.01 10e3/ul Normal 0.00-0.03 [facility] Comment on above: Performed By: #### D ATCBC #### [facility] [address] [place] [address] Dr. Power Covarrubias IG % 0.2 % Normal 0.0-0.5 [facility] Comment on above: Performed By: #### D ATCBC #### [facility] [address] [place] [address] Dr. Power Covarrubias LYMPH # 0.7 103/ul Critically low 1.2-3.8 [facility] Comment on above: Performed By: #### D ATCBC #### [facility] [address] [place] [address] Dr. Power Covarrubias Lymphocytes/100 WBC (Bld) 16.3 % Critically low 20.5-60.0 [facility] Comment on above: Performed By: #### D ATCBC #### [facility] [address] [place] [address] Dr. Power Covarrubias MCH (RBC) [Entitic mass] 29.6 pg Normal 25.9-34.0 [facility] Comment on above: Performed By: #### D ATCBC #### [facility] [address] [address] [address] Power Covarrubias MCHC (RBC) [Mass/Vol] 31.7 g/dL Normal 29.9-35.2 [facility] Comment on above: Performed By: #### D ATCBC #### [facility] [address] [place] [address] Dr. Power Covarrubias MCV (RBC) [Entitic vol] 93.3 fL Normal 80.0-94.0 [facility] Comment on above: Performed By: #### D ATCBC #### [facility] [address] [place] [address] Dr. Power Covarrubias MONO # 0.3 103/ul Normal 0.3-0.8 [facility] Comment on above: Performed By: #### D ATCBC #### [facility] [address] [place] [address] Dr. Power Covarrubias Monocytes/100 WBC (Bld) 7.5 % Normal 1.7-12.0 [facility] Comment on above: Performed By: #### D ATCBC #### [facility] [address] [place] [address] Dr. Power Covarrubias NEUT # 3.4 103/ul Normal 1.4-6.5 [facility] Comment on above: Performed By: #### D ATCBC #### [facility] [address] [place] [address] Dr. Power Covarrubias Neutrophils/100 WBC (Bld) 73.5 % Normal 43.0-75.0 [facility] Comment on above: Performed By: #### D ATCBC #### [facility] [address] [place] [address] Dr. Power Covarrubias Platelet mean volume (Bld) [Entitic vol] 9.9 fL Normal 9.5-13.5 [facility] Comment on above: Performed By: #### D ATCBC #### [facility] [address] [place] [address] Dr. Power Covarrubias PLT 198 103/ul Normal 150-450 [facility] Comment on above: Performed By: #### D ATCBC #### [facility] [address] [address] [address] Power Covarrubias RBC 4.36 106/ul Critically low 4.70-6.10 [facility] Comment on above: Performed By: #### D ATCBC #### [facility] [address] [address] [address] Power Covarrubias WBC 4.6 103/ul Normal 4.0-11.0 [facility] Comment on above: Performed By: #### D ATCBC #### [facility] [address] [address] [address] Power Covarrubias BRE - LIPID PROFILEon 2022 CHOL-HDL RATIO NORM SEE BELOW Normal [facility] Comment on above: Result Comment: 3.3 - 4.4 LOW RISK 4.4 - 7.1 AVERAGE RISK 7.1 - 11.0 MODERATE RISK >11.0 HIGH RISK Performed By: #### D ATLIPI, DATPSA, DATBMP #### [facility] [address] [place] [address] Dr. Power Covarrubias Cholesterol.total/Ch olesterol in HDL [Mass ratio] 2.2 {ratio} Normal [facility] Comment on above: Performed By: #### D ATLIPI, DATPSA, DATBMP #### [facility] [address] [place] [address] Dr. Power Covarrubias BRE- BMP WITH LIPIDon 2022 Anion gap [Moles/Vol] 12.8 mmol/L Normal [facility] Comment on above: Performed By: #### D ATLIPI, DATPSA, DATBMP #### [facility] [address] [address] [address] Power Covarrubias Calcium [Mass/Vol] 9.3 mg/dL Normal 8.5-10.1 [facility] Comment on above: Performed By: #### D ATLIPI, DATPSA, DATBMP #### [facility] [address] [place] [address] Dr. Power Covarrubias Chloride [Moles/Vol] 107 mmol/L Normal 98-107 [facility] Comment on above: Performed By: #### D ATLIPI, DATPSA, DATBMP #### [facility] [address] [place] [address] Dr. Power Covarrubias Cholesterol [Mass/Vol] 123 mg/dL Normal <=200 [facility] Comment on above: Performed By: #### D ATLIPI, DATPSA, DATBMP #### [facility] [address] [address] [address] Power Covarrubias Cholesterol in HDL [Mass/Vol] 56 mg/dL Normal 40-60 [facility] Comment on above: Performed By: #### D ATLIPI, DATPSA, DATBMP #### [facility] [address] [place] [address] Dr. Power Covarrubias Cholesterol in LDL [Mass/Vol] 52.0 mg/dL Normal [facility] Comment on above: Performed By: #### D ATLIPI, DATPSA, DATBMP #### [facility] [address] [place] [address] Dr. Power Covarrubias CO2 [Moles/Vol] 28.7 mmol/L Normal 21.0-32.0 [facility] Comment on above: Performed By: #### D ATLIPI, DATPSA, DATBMP #### [facility] [address] [place] [address] Dr. Power Covarrubias Creatinine [Mass/Vol] 0.93 mg/dL Normal 0.70-1.30 [facility] Comment on above: Performed By: #### D ATLIPI, DATPSA, DATBMP #### [facility] [address] [place] [address] Dr. Power Covarrubias EGFR-AF PARAGUAYAN >60 Normal >=60 [facility] Comment on above: Performed By: #### D ATLIPI, DATPSA, DATBMP #### [facility] [address] [place] [address] Dr. Power Covarrubias EGFR-NON AF PARAGUAYAN >60 Normal >=60 [facility] Comment on above: Performed By: #### D ATLIPI, DATPSA, DATBMP #### [facility] [address] [address] [address] Power Covarrubias Glucose [Mass/Vol] 97 mg/dL Normal 74-106 [facility] Comment on above: Performed By: #### D ATLIPI, DATPSA, DATBMP #### [facility] [address] [address] [address] Power Covarrubias HDL NORMAL > or = 60 mg/dl - LO W CARDIOVASCULAR RISK <40 mg/dl - HIGH CARDIOVASCULAR RISK Normal [facility] Comment on above: Performed By: #### D ATLIPI, DATPSA, DATBMP #### [facility] [address] [address] [address] Power Covarrubias LDL CALC NORMAL SEE BELOW Normal [facility] Comment on above: Result Comment: <100 mg/dl OPTIMAL 100 - 129 mg/dl NEAR OR ABOVE OPTIMAL 130 - 159 mg/dl BORDERLINE HIGH 160 - 189 mg/dl HIGH >190 mg/dl VERY HIGH Performed By: #### D ATLIPI, DATPSA, DATBMP #### [facility] [address] [address] [address] Power Covarrubias Potassium [Moles/Vol] 3.5 mmol/L Normal 3.5-5.1 [facility] Comment on above: Performed By: #### D ATLIPI, DATPSA, DATBMP #### [facility] [address] [address] [address] Power Covarrubias Sodium [Moles/Vol] 145 mmol/L Normal 136-145 [facility] Comment on above: Performed By: #### D ATLIPI, DATPSA, DATBMP #### [facility] [address] [address] [address] Power Covarrubias Triglyceride [Mass/Vol] 75 mg/dL Normal <=150 [facility] Comment on above: Performed By: #### D ATLIPI, DATPSA, DATBMP #### [facility] [address] [address] [address] Power Covarrubias Urea nitrogen [Mass/Vol] 11.0 mg/dL Normal 7.0-18.0 [facility] Comment on above: Performed By: #### D ATLIPI, DATPSA, DATBMP #### [facility] [address] [place] [address] Dr. Power Covarrubias Urea nitrogen/Creatinine [Mass ratio] 11.8 mg/mg Normal [facility] Comment on above: Performed By: #### D ATLIPI, DATPSA, DATBMP #### [facility] [address] [place] [address] Dr. Power Covarrubias VLDL CALC 15.0 mg/dL Normal [facility] Comment on above: Performed By: #### D ATLIPI, DATPSA, DATBMP #### [facility] [address] [place] [address] Dr. Power Covarrubias GLYCOHEMOGLOBIN A1Con 2022 ADA RECOMMENDATION SEE BELOW Normal [facility] Comment on above: Result Comment: ADA RECOMMENDED LIMIT 4.0 - 6.0 ADA THERAPEUTIC TARGET < 7.0 ACTION SUGGESTED > 7.0 Performed By: #### D ATLIPI, DATPSA, DATBMP #### [facility] [address] [place] [address] Dr. Power Covarrubias Glucose [Mass/Vol] 105 mg/dL Normal [facility] Comment on above: Performed By: #### D ATLIPI, DATPSA, DATBMP #### [facility] [address] [place] [address] Dr. Power Covarrubias HbA1c (Bld) [Mass fraction] 5.3 % Normal 4.5-6.2 [facility] Comment on above: Performed By: #### D ATLIPI, DATPSA, DATBMP #### [facility] [address] [place] [address] Dr. Power Covarrubias CBC AUTO DIFFon 12-10-2022 BASO # 0.0 103/ul Normal 0.0-0.1 [facility] Comment on above: Performed By: #### D ATLIPI, DATPSA, DATBMP #### [facility] [address] [place] [address] Dr. Power Covarrubias Basophils/100 WBC (Bld) 0.4 % Normal 0.2-2.0 [facility] Comment on above: Performed By: #### D ATLIPI, DATPSA, DATBMP #### [facility] [address] [place] [address] Dr. Power Covarrubias EO # 0.2 103/ul Normal 0.0-0.7 [facility] Comment on above: Performed By: #### D ATLIPI, DATPSA, DATBMP #### [facility] [address] [place] [address] Dr. Power Covarrubias Eosinophils/100 WBC (Bld) 3.6 % Normal 0.9-7.0 [facility] Comment on above: Performed By: #### D ATLIPI, DATPSA, DATBMP #### [facility] [address] [place] [address] Dr. Power Covarrubias Erythrocyte distribution width (RBC) [Ratio] 13.5 % Normal 11.0-15.0 [facility] Comment on above: Performed By: #### D ATLIPI, DATPSA, DATBMP #### [facility] [address] [place] [address] Dr. Power Covarrubias Hematocrit (Bld) [Volume fraction] 37.5 % Critically low 42.0-54.0 [facility] Comment on above: Performed By: #### D ATLIPI, DATPSA, DATBMP #### [facility] [address] [place] [address] Dr. Power Covarrubias Hemoglobin (Bld) [Mass/Vol] 12.0 g/dL Critically low 14.0-18.0 [facility] Comment on above: Performed By: #### D ATLIPI, DATPSA, DATBMP #### [facility] [address] [place] [address] Dr. Power Covarrubias IG # 0.02 10e3/ul Normal 0.00-0.03 [facility] Comment on above: Performed By: #### D ATLIPI, DATPSA, DATBMP #### [facility] [address] [place] [address] Dr. Power Covarrubias IG % 0.4 % Normal 0.0-0.5 [facility] Comment on above: Performed By: #### D ATLIPI, DATPSA, DATBMP #### [facility] [address] [place] [address] Dr. Power Covarrubias LYMPH # 0.9 103/ul Critically low 1.2-3.8 [facility] Comment on above: Performed By: #### D ATLIPI, DATPSA, DATBMP #### [facility] [address] [place] [address] Dr. Power Covarrubias Lymphocytes/100 WBC (Bld) 17.7 % Critically low 20.5-60.0 [facility] Comment on above: Performed By: #### D ATLIPI, DATPSA, DATBMP #### [facility] [address] [place] [address] Dr. Power Covarrubias MANUAL DIFF REQ NO Normal [facility] Comment on above: Performed By: #### D ATLIPI, DATPSA, DATBMP #### [facility] [address] [place] [address] Dr. Power Covarrubias MCH (RBC) [Entitic mass] 29.7 pg Normal 25.9-34.0 [facility] Comment on above: Performed By: #### D ATLIPI, DATPSA, DATBMP #### [facility] [address] [place] [address] Dr. Power Covarrubias MCHC (RBC) [Mass/Vol] 32.0 g/dL Normal 29.9-35.2 [facility] Comment on above: Performed By: #### D ATLIPI, DATPSA, DATBMP #### [facility] [address] [place] [address] Dr. Power Covarrubias MCV (RBC) [Entitic vol] 92.8 fL Normal 80.0-94.0 [facility] Comment on above: Performed By: #### D ATLIPI, DATPSA, DATBMP #### [facility] [address] [place] [address] Dr. Power Covarrubias MONO # 0.6 103/ul Normal 0.3-0.8 [facility] Comment on above: Performed By: #### D ATLIPI, DATPSA, DATBMP #### [facility] [address] [place] [address] Dr. Power Covarrubias Monocytes/100 WBC (Bld) 11.1 % Normal 1.7-12.0 [facility] Comment on above: Performed By: #### D ATLIPI, DATPSA, DATBMP #### [facility] [address] [place] [address] Dr. Power Covarrubias NEUT # 3.6 103/ul Normal 1.4-6.5 [facility] Comment on above: Performed By: #### D ATLIPI, DATPSA, DATBMP #### [facility] [address] [place] [address] Dr. Power Covarrubias Neutrophils/100 WBC (Bld) 66.8 % Normal 43.0-75.0 [facility] Comment on above: Performed By: #### D ATLIPI, DATPSA, DATBMP #### [facility] [address] [place] [address] Dr. Power Covarrubias Platelet mean volume (Bld) [Entitic vol] 9.8 fL Normal 9.5-13.5 [facility] Comment on above: Performed By: #### D ATLIPI, DATPSA, DATBMP #### [facility] [address] [place] [address] Dr. Power Covarrubias PLT 199 103/ul Normal 150-450 [facility] Comment on above: Performed By: #### D ATLIPI, DATPSA, DATBMP #### [facility] [address] [place] [address] Dr. Power Covarrubias RBC 4.04 106/ul Critically low 4.70-6.10 [facility] Comment on above: Performed By: #### D ATLIPI, DATPSA, DATBMP #### [facility] [address] [place] [address] Dr. Power Covarrubias WBC 5.3 103/ul Normal 4.0-11.0 [facility] Comment on above: Performed By: #### D ATLMACK, DATPSA, DATBMP #### [facility] [address] [place] [address] Dr. Power Covarrubias PROF 14(COMP METB)on 023 Albumin [Mass/Vol] 3.3 g/dL Critically low 3.4-5.0 [facility] Comment on above: Performed By: #### C MP #### [facility] [address] [place] [address] Dr. Power Covarrubias Albumin/Globulin [Mass ratio] 0.9 {ratio} Normal [facility] Comment on above: Performed By: #### C MP #### [facility] [address] [place] [address] Dr. Power Covarrubias ALP [Catalytic activity/Vol] 99 U/L Normal 46-116 [facility] Comment on above: Performed By: #### C MP #### [facility] [address] [place] [address] Dr. Power Covarrubias ALT [Catalytic activity/Vol] 17 U/L Normal 16-63 [facility] Comment on above: Performed By: #### C MP #### [facility] [address] [place] [address] Dr. Power Covarrubias Anion gap [Moles/Vol] 11.6 mmol/L Normal [facility] Comment on above: Performed By: #### C MP #### [facility] [address] [place] [address] Dr. Power Covarrubias AST [Catalytic activity/Vol] 15 U/L Normal 15-37 [facility] Comment on above: Performed By: #### C MP #### [facility] [address] [place] [address] Dr. Power Covarrubias Bilirubin [Mass/Vol] 0.6 mg/dL Normal 0.2-1.0 [facility] Comment on above: Performed By: #### C MP #### [facility] [address] [address] [address] Power Covarrubias Calcium [Mass/Vol] 9.4 mg/dL Normal 8.5-10.1 [facility] Comment on above: Performed By: #### C MP #### [facility] [address] [address] [address] Power Covarrubias Chloride [Moles/Vol] 107 mmol/L Normal 98-107 [facility] Comment on above: Performed By: #### C MP #### [facility] [address] [place] [address] Dr. Power Covarrubias CO2 [Moles/Vol] 29.2 mmol/L Normal 21.0-32.0 [facility] Comment on above: Performed By: #### C MP #### [facility] [address] [place] [address] Dr. Power Covarrubias Creatinine [Mass/Vol] 0.87 mg/dL Normal 0.70-1.30 [facility] Comment on above: Performed By: #### C MP #### [facility] [address] [place] [address] Dr. Power Covarrubias EGFR-AF PARAGUAYAN >60 Normal >=60 [facility] [facility] Comment on above: Performed By: #### C MP #### [facility] [address] [place] [address] Dr. Power Covarrubias EGFR-NON AF PARAGUAYAN >60 Normal >=60 [facility] Comment on above: Performed By: #### C MP #### [facility] [address] [address] [address] Power Covarrubias Globulin (S) [Mass/Vol] 3.6 g/dL Normal [facility] Comment on above: Performed By: #### C MP #### [facility] [address] [place] [address] Dr. Power Covarrubias Glucose [Mass/Vol] 107 mg/dL Critically high 74-106 [facility] Comment on above: Performed By: #### C MP #### [facility] [address] [place] [address] Dr. Power Covarrubias Potassium [Moles/Vol] 3.8 mmol/L Normal 3.5-5.1 [facility] Comment on above: Performed By: #### C MP #### [facility] [address] [place] [address] Dr. Power Covarrubias Protein [Mass/Vol] 6.9 g/dL Normal 6.4-8.2 [facility] Comment on above: Performed By: #### C MP #### [facility] [address] [place] [address] Dr. Power Covarrubias Sodium [Moles/Vol] 144 mmol/L Normal 136-145 [facility] Comment on above: Performed By: #### C MP #### [facility] [address] [place] [address] Dr. Power Covarrubias Urea nitrogen [Mass/Vol] 12.0 mg/dL Normal 7.0-18.0 [facility] Comment on above: Performed By: #### C MP #### [facility] [address] [place] [address] Dr. Power Covarrubias Urea nitrogen/Creatinine [Mass ratio] 13.8 mg/mg Normal [facility] Comment on above: Performed By: #### C MP #### [facility] [address] [place] [address] Dr. Power Covarrubias CBC AUTO DIFFon 08-31-2022 BASO # 0.0 103/ul Normal 0.0-0.1 [facility] Comment on above: Performed By: #### D ATLIPI DATPSA, DATBMP #### [facility] [address] [place] [address] Dr. Power Covarrubias Basophils/100 WBC (Bld) 0.7 % Normal 0.2-2.0 [facility] Comment on above: Performed By: #### D ATLIPI, DATPSA, DATBMP #### [facility] [address] [place] [address] Dr. Power Covarrubias EO # 0.2 103/ul Normal 0.0-0.7 [facility] Comment on above: Performed By: #### D ATLIPI, DATPSA, DATBMP #### [facility] [address] [place] [address] Dr. Power Covarrubias Eosinophils/100 WBC (Bld) 3.5 % Normal 0.9-7.0 [facility] Comment on above: Performed By: #### D ATLIPI, DATPSA, DATBMP #### [facility] [address] [place] [address] Dr. Power Covarrubias Erythrocyte distribution width (RBC) [Ratio] 13.2 % Normal 11.0-15.0 [facility] Comment on above: Performed By: #### D ATLIPI, DATPSA, DATBMP #### [facility] [address] [place] [address] Dr. Power Covarrubias Hematocrit (Bld) [Volume fraction] 39.3 % Critically low 42.0-54.0 [facility] Comment on above: Performed By: #### D ATLIPI, DATPSA, DATBMP #### [facility] [address] [place] [address] Dr. Power Covarrubias Hemoglobin (Bld) [Mass/Vol] 12.9 g/dL Critically low 14.0-18.0 [facility] Comment on above: Performed By: #### D ATLIPI, DATPSA, DATBMP #### [facility] [address] [place] [address] Dr. Power Covarrubias IG # 0.02 10e3/ul Normal 0.00-0.03 [facility] Comment on above: Performed By: #### D ATLIPI, DATPSA, DATBMP #### [facility] [address] [place] [address] Dr. Power Covarrubias IG % 0.4 % Normal 0.0-0.5 [facility] Comment on above: Performed By: #### D ATLIPI, DATPSA, DATBMP #### [facility] [address] [place] [address] Dr. Power Covarrubias LYMPH # 0.9 103/ul Critically low 1.2-3.8 [facility] Comment on above: Performed By: #### D ATLIPI, DATPSA, DATBMP #### [facility] [address] [place] [address] Dr. Power Covarrubias Lymphocytes/100 WBC (Bld) 16.4 % Critically low 20.5-60.0 [facility] Comment on above: Performed By: #### D ATLIPI, DATPSA, DATBMP #### [facility] [address] [place] [address] Dr. Power Covarrubias MCH (RBC) [Entitic mass] 30.7 pg Normal 25.9-34.0 [facility] Comment on above: Performed By: #### D ATLIPI, DATPSA, DATBMP #### [facility] [address] [place] [address] Dr. Power Covarrubias MCHC (RBC) [Mass/Vol] 32.8 g/dL Normal 29.9-35.2 [facility] Comment on above: Performed By: #### D ATLIPI, DATPSA, DATBMP #### [facility] [address] [place] [address] Dr. Power Covarrubias MCV (RBC) [Entitic vol] 93.6 fL Normal 80.0-94.0 [facility] Comment on above: Performed By: #### D ATLIPI, DATPSA, DATBMP #### [facility] [address] [place] [address] Dr. Power Covarrubias MONO # 0.5 103/ul Normal 0.3-0.8 [facility] Comment on above: Performed By: #### D ATLIPI, DATPSA, DATBMP #### [facility] [address] [place] [address] Dr. Power Covarrubias Monocytes/100 WBC (Bld) 9.0 % Normal 1.7-12.0 [facility] Comment on above: Performed By: #### D ATLIPI, DATPSA, DATBMP #### [facility] [address] [place] [address] Dr. Power Covarrubias NEUT # 3.8 103/ul Normal 1.4-6.5 [facility] Comment on above: Performed By: #### D ATLIPI, DATPSA, DATBMP #### [facility] [address] [place] [address] Dr. Power Covarrubias Neutrophils/100 WBC (Bld) 70.0 % Normal 43.0-75.0 [facility] Comment on above: Performed By: #### D ATLIPI, DATPSA, DATBMP #### [facility] [address] [place] [address] Dr. Power Covarrubias Platelet mean volume (Bld) [Entitic vol] 9.9 fL Normal 9.5-13.5 [facility] Comment on above: Performed By: #### D ATLIPI, DATPSA, DATBMP #### [facility] [address] [place] [address] Dr. Power Covarrubias PLT 195 103/ul Normal 150-450 [facility] Comment on above: Performed By: #### D ATLIPI, DATPSA, DATBMP #### [facility] [address] [place] [address] Dr. Power Covarrubias RBC 4.20 106/ul Critically low 4.70-6.10 [facility] Comment on above: Performed By: #### D ATLIPI, DATPSA, DATBMP #### [facility] [address] [place] [address] Dr. Power Covarrubias WBC 5.4 103/ul Normal 4.0-11.0 [facility] Comment on above: Performed By: #### D ATLIPI, DATPSA, DATBMP #### [facility] [address] [place] [address] Dr. Power Covarrubias BRE- BMP WITH LIPIDon 2021 Anion gap [Moles/Vol] 10.8 mmol/L Normal [facility] Comment on above: Performed By: #### D ATLIPI, DATPSA, DATBMP #### [facility] [address] [place] [address] Dr. Power Covarrubias Calcium [Mass/Vol] 9.3 mg/dL Normal 8.5-10.1 [facility] Comment on above: Performed By: #### D ATLIPI, DATPSA, DATBMP #### [facility] [address] [address] [address] Power Covarrubias Chloride [Moles/Vol] 105 mmol/L Normal 98-107 [facility] Comment on above: Performed By: #### D ATLIPI, DATPSA, DATBMP #### [facility] [address] [address] [address] Power Covarrubias Cholesterol [Mass/Vol] 123 mg/dL Normal <=200 [facility] Comment on above: Performed By: #### D ATLIPI, DATPSA, DATBMP #### [facility] [address] [place] [address] Dr. Power Covarrubias Cholesterol in HDL [Mass/Vol] 51 mg/dL Normal 40-60 [facility] Comment on above: Performed By: #### D ATLIPI, DATPSA, DATBMP #### [facility] [address] [address] [address] Power Covarrubias Cholesterol in LDL [Mass/Vol] 56.0 mg/dL Normal [facility] Comment on above: Performed By: #### D ATLIPI, DATPSA, DATBMP #### [facility] [address] [address] [address] Power Covarrubias CO2 [Moles/Vol] 28.2 mmol/L Normal 21.0-32.0 [facility] Comment on above: Performed By: #### D ATLIPI, DATPSA, DATBMP #### [facility] [address] [place] [address] Dr. Power Covarrubias Creatinine [Mass/Vol] 0.86 mg/dL Normal 0.70-1.30 [facility] Comment on above: Performed By: #### D ATLIPI, DATPSA, DATBMP #### [facility] [address] [place] [address] Dr. Power Covarrubias EGFR-AF PARAGUAYAN >60 Normal >=60 [facility] Comment on above: Performed By: #### D ATLIPI, DATPSA, DATBMP #### [facility] [address] [address] [address] Power Covarrubias EGFR-NON AF PARAGUAYAN >60 Normal >=60 [facility] Comment on above: Performed By: #### D ATLIPI, DATPSA, DATBMP #### [facility] [address] [address] [address] Power Covarrubias Glucose [Mass/Vol] 90 mg/dL Normal 74-106 [facility] Comment on above: Performed By: #### D ATLIPI, DATPSA, DATBMP #### [facility] [address] [address] [address] Power Covarrubias HDL NORMAL > or = 60 mg/dl - LO W CARDIOVASCULAR RISK <40 mg/dl - HIGH CARDIOVASCULAR RISK Normal [facility] Comment on above: Performed By: #### D ATLIPI, DATPSA, DATBMP #### [facility] [address] [address] [address] Power Covarrubias LDL CALC NORMAL SEE BELOW Normal [facility] Comment on above: Result Comment: <100 mg/dl OPTIMAL 100 - 129 mg/dl NEAR OR ABOVE OPTIMAL 130 - 159 mg/dl BORDERLINE HIGH 160 - 189 mg/dl HIGH >190 mg/dl VERY HIGH Performed By: #### D ATLIPI, DATPSA, DATBMP #### [facility] [address] [address] [address] Power Covarrubias Potassium [Moles/Vol] 4.0 mmol/L Normal 3.5-5.1 [facility] Comment on above: Performed By: #### D ATLIPI, DATPSA, DATBMP #### [facility] [address] [address] [address] Power Covarrubias Sodium [Moles/Vol] 140 mmol/L Normal 136-145 [facility] Comment on above: Performed By: #### D ATLIPI, DATPSA, DATBMP #### [facility] [address] [address] [address] Power Covarrubias Triglyceride [Mass/Vol] 80 mg/dL Normal <=150 [facility] Comment on above: Performed By: #### D ATLIPI, DATPSA, DATBMP #### [facility] [address] [place] [address] Dr. Power Covarrubias Urea nitrogen [Mass/Vol] 14.0 mg/dL Normal 7.0-18.0 [facility] Comment on above: Performed By: #### D ATLIPI, DATPSA, DATBMP #### [facility] [address] [place] [address] Dr. Power Covarrubias Urea nitrogen/Creatinine [Mass ratio] 16.3 mg/mg Normal [facility] Comment on above: Performed By: #### D ATLIPI, DATPSA, DATBMP #### [facility] [address] [place] [address] Dr. Power Covarrubias VLDL CALC 16.0 mg/dL Normal [facility] Comment on above: Performed By: #### D ATLIPI, DATPSA, DATBMP #### [facility] [address] [place] [address] Dr. Power Covarrubias OCC BLD IMMUNO SCREENon 06-16 OCCULT BLOOD Negative Normal NEGATIVE [facility] Comment on above: Performed By: #### O BSCRN #### [facility] [address] [place] [address] Dr. Power Covarrubias T4 LABCORPon 06-30-2022 T4 [Mass/Vol] 9.2 ug/dL Normal 4.5-12.0 [facility] Comment on above: Performed By: #### D ATLIPI, DATPSA, DATBMP #### [facility] [address] [place] [address] Dr. Power Covarrubias CBC AUTO DIFFon 06-29-2022 BASO # 0.0 103/ul Normal 0.0-0.1 [facility] Comment on above: Performed By: #### D ATLIPI, DATPSA, DATBMP #### [facility] [address] [place] [address] Dr. Power Covarrubias Basophils/100 WBC (Bld) 0.5 % Normal 0.2-2.0 [facility] Comment on above: Performed By: #### D ATLIPI, DATPSA, DATBMP #### [facility] [address] [place] [address] Dr. Power Covarrbuias EO # 0.1 103/ul Normal 0.0-0.7 [facility] Comment on above: Performed By: #### D ATLIPI, DATPSA, DATBMP #### [facility] [address] [place] [address] Dr. Power Covarrubias Eosinophils/100 WBC (Bld) 2.5 % Normal 0.9-7.0 [facility] Comment on above: Performed By: #### D ATLIPI, DATPSA, DATBMP #### [facility] [address] [place] [address] Dr. Power Covarrubias Erythrocyte distribution width (RBC) [Ratio] 13.4 % Normal 11.0-15.0 [facility] Comment on above: Performed By: #### D ATLIPI, DATPSA, DATBMP #### [facility] [address] [place] [address] Dr. Power Covarrubias Hematocrit (Bld) [Volume fraction] 38.1 % Critically low 42.0-54.0 [facility] Comment on above: Performed By: #### D ATLIPI, DATPSA, DATBMP #### [facility] [address] [place] [address] Dr. Power Covarrubias Hemoglobin (Bld) [Mass/Vol] 12.0 g/dL Critically low 14.0-18.0 [facility] Comment on above: Performed By: #### D ATLIPI, DATPSA, DATBMP #### [facility] [address] [place] [address] Dr. Power Covarrubias IG # 0.01 10e3/ul Normal 0.00-0.03 [facility] Comment on above: Performed By: #### D ATLIPI, DATPSA, DATBMP #### [facility] [address] [place] [address] Dr. Power Covarrubias IG % 0.2 % Normal 0.0-0.5 [facility] Comment on above: Performed By: #### D ATLIPI, DATPSA, DATBMP #### [facility] [address] [place] [address] Dr. Power Covarrubias LYMPH # 0.9 103/ul Critically low 1.2-3.8 [facility] Comment on above: Performed By: #### D ATLIPI, DATPSA, DATBMP #### [facility] [address] [place] [address] Dr. Power Covarrubias Lymphocytes/100 WBC (Bld) 15.5 % Critically low 20.5-60.0 [facility] Comment on above: Performed By: #### D ATLIPI, DATPSA, DATBMP #### [facility] [address] [place] [address] Dr. Power Covarrubias MANUAL DIFF REQ NO Normal [facility] Comment on above: Performed By: #### D ATLIPI, DATPSA, DATBMP #### [facility] [address] [place] [address] Dr. Power Covarrubias MCH (RBC) [Entitic mass] 30.2 pg Normal 25.9-34.0 [facility] Comment on above: Performed By: #### D ATLIPI, DATPSA, DATBMP #### [facility] [address] [place] [address] Dr. Power Covarrubias MCHC (RBC) [Mass/Vol] 31.5 g/dL Normal 29.9-35.2 [facility] Comment on above: Performed By: #### D ATLIPI, DATPSA, DATBMP #### [facility] [address] [place] [address] Dr. Power Covarrubias MCV (RBC) [Entitic vol] 96.0 fL Critically high 80.0-94.0 [facility] Comment on above: Performed By: #### D ATLIPI, DATPSA, DATBMP #### [facility] [address] [place] [address] Dr. Power Covarrubias MONO # 0.5 103/ul Normal 0.3-0.8 [facility] Comment on above: Performed By: #### D ATLIPI, DATPSA, DATBMP #### [facility] [address] [place] [address] Dr. Power Covarrubias Monocytes/100 WBC (Bld) 9.5 % Normal 1.7-12.0 [facility] Comment on above: Performed By: #### D ATLIPI, DATPSA, DATBMP #### [facility] [address] [place] [address] Dr. Power Covarrubias NEUT # 4.1 103/ul Normal 1.4-6.5 [facility] Comment on above: Performed By: #### D ATLIPI, DATPSA, DATBMP #### [facility] [address] [place] [address] Dr. Power Covarrubias Neutrophils/100 WBC (Bld) 71.8 % Normal 43.0-75.0 [facility] Comment on above: Performed By: #### D ATLIPI, DATPSA, DATBMP #### [facility] [address] [place] [address] Dr. Power Covarrubias Platelet mean volume (Bld) [Entitic vol] 9.8 fL Normal 9.5-13.5 [facility] Comment on above: Performed By: #### D ATLIPI, DATPSA, DATBMP #### [facility] [address] [place] [address] Dr. Power Covarrubias PLT 212 103/ul Normal 150-450 [facility] Comment on above: Performed By: #### D ATLIPI, DATPSA, DATBMP #### [facility] [address] [place] [address] Dr. Power Covarrubias RBC 3.97 106/ul Critically low 4.70-6.10 [facility] Comment on above: Performed By: #### D ATLIPI, DATPSA, DATBMP #### [facility] [address] [place] [address] Dr. Power Covarrubias WBC 5.7 103/ul Normal 4.0-11.0 [facility] Comment on above: Performed By: #### D ATLIPI, DATPSA, DATBMP #### [facility] [address] [address] [address] Power Covarrubias FREE T3on 06-29-2022 FREE T3 2.73 pg/mlL Normal 2.18-3.98 [facility] Comment on above: Performed By: #### D ATLIPI, DATPSA, DATBMP #### [facility] [address] [address] [address] Power Covarrubias GLYCOHEMOGLOBIN A1Con 2021 ADA RECOMMENDATION SEE BELOW Normal [facility] Comment on above: Result Comment: ADA RECOMMENDED LIMIT 4.0 - 6.0 ADA THERAPEUTIC TARGET < 7.0 ACTION SUGGESTED > 7.0 Performed By: #### A 1C #### [facility] [address] [place] [address] Dr. Power Covarrubias Glucose [Mass/Vol] 114 mg/dL Normal [facility] Comment on above: Performed By: #### A 1C #### [facility] [address] [place] [address] Dr. Power Covarrubias HbA1c (Bld) [Mass fraction] 5.6 % Normal 4.5-6.2 [facility] Comment on above: Performed By: #### A 1C #### [facility] [address] [place] [address] Dr. Power Covarrubias LIPID PROFILEon 06-29-2022 CHOL-HDL RATIO NORM SEE BELOW Normal [facility] Comment on above: Result Comment: 3.3 - 4.4 LOW RISK 4.4 - 7.1 AVERAGE RISK 7.1 - 11.0 MODERATE RISK >11.0 HIGH RISK Performed By: #### D ATLIPI, DATPSA, DATBMP #### [facility] [address] [place] [address] Dr. Power Covarrubias Cholesterol [Mass/Vol] 110 mg/dL Normal <=200 [facility] Comment on above: Performed By: #### D ATLIPI, DATPSA, DATBMP #### [facility] [address] [place] [address] Dr. Power Covarrubias Cholesterol in HDL [Mass/Vol] 47 mg/dL Normal 40-60 [facility] Comment on above: Performed By: #### D ATLIPI, DATPSA, DATBMP #### [facility] [address] [address] [address] Power Covarrubias Cholesterol in LDL [Mass/Vol] 51.2 mg/dL Normal [facility] Comment on above: Performed By: #### D ATLIPI, DATPSA, DATBMP #### [facility] [address] [address] [address] Power Covarrubias Cholesterol.total/Ch olesterol in HDL [Mass ratio] 2.3 {ratio} Normal [facility] Comment on above: Performed By: #### D ATLIPI, DATPSA, DATBMP #### [facility] [address] [address] [address] Power Covarrubias HDL NORMAL > or = 60 mg/dl - LO W CARDIOVASCULAR RISK <40 mg/dl - HIGH CARDIOVASCULAR RISK Normal [facility] Comment on above: Performed By: #### D ATLIPI, DATPSA, DATBMP #### [facility] [address] [address] [address] Power Covarrubias LDL CALC NORMAL SEE BELOW Normal [facility] Comment on above: Result Comment: <100 mg/dl OPTIMAL 100 - 129 mg/dl NEAR OR ABOVE OPTIMAL 130 - 159 mg/dl BORDERLINE HIGH 160 - 189 mg/dl HIGH >190 mg/dl VERY HIGH Performed By: #### D ATLIPI, DATPSA, DATBMP #### [facility] [address] [address] [address] Power Covarrubias Triglyceride [Mass/Vol] 59 mg/dL Normal <=150 [facility] Comment on above: Performed By: #### D ATLIPI, DATPSA, DATBMP #### [facility] [address] [address] [address] Power Covarrubias VLDL CALC 11.8 mg/dL Normal [facility] Comment on above: Performed By: #### D ATLIPI, DATPSA, DATBMP #### [facility] [address] [place] [address] Dr. Power Covarrubias PROF 14(COMP METB)on 022 Albumin [Mass/Vol] 3.3 g/dL Critically low 3.4-5.0 [facility] Comment on above: Performed By: #### D ATLIPI, DATPSA, DATBMP #### [facility] [address] [place] [address] Dr. Power Covarrubias Albumin/Globulin [Mass ratio] 0.9 {ratio} Normal [facility] Comment on above: Performed By: #### D ATLIPI, DATPSA, DATBMP #### [facility] [address] [place] [address] Dr. Power Covarrubias ALP [Catalytic activity/Vol] 100 U/L Normal 46-116 [facility] Comment on above: Performed By: #### D ATLIPI, DATPSA, DATBMP #### [facility] [address] [place] [address] Dr. Power Covarrubias ALT [Catalytic activity/Vol] 16 U/L Normal 16-63 [facility] Comment on above: Performed By: #### D ATLIPI, DATPSA, DATBMP #### [facility] [address] [place] [address] Dr. Power Covarrubias Anion gap [Moles/Vol] 11.4 mmol/L Normal [facility] Comment on above: Performed By: #### D ATLIPI, DATPSA, DATBMP #### [facility] [address] [place] [address] Dr. Power Covarrubias AST [Catalytic activity/Vol] 14 U/L Critically low 15-37 [facility] Comment on above: Performed By: #### D ATLIPI, DATPSA, DATBMP #### [facility] [address] [place] [address] Dr. Power Covarrubias Bilirubin [Mass/Vol] 0.7 mg/dL Normal 0.2-1.0 [facility] Comment on above: Performed By: #### D ATLIPI, DATPSA, DATBMP #### [facility] [address] [address] [address] Power Covarrubias Calcium [Mass/Vol] 9.0 mg/dL Normal 8.5-10.1 [facility] Comment on above: Performed By: #### D ATLIPI, DATPSA, DATBMP #### [facility] [address] [place] [address] Dr. Power Covarrubias Chloride [Moles/Vol] 107 mmol/L Normal 98-107 [facility] Comment on above: Performed By: #### D ATLIPI, DATPSA, DATBMP #### [facility] [address] [place] [address] Dr. Power Covarrubias CO2 [Moles/Vol] 28.5 mmol/L Normal 21.0-32.0 [facility] Comment on above: Performed By: #### D ATLIPI, DATPSA, DATBMP #### [facility] [facility] [address] [place] [address] Dr. Power Covarrubias Creatinine [Mass/Vol] 0.87 mg/dL Normal 0.70-1.30 [facility] Comment on above: Performed By: #### D ATLIPI, DATPSA, DATBMP #### [facility] [address] [place] [address] Dr. Power Covarrubias EGFR-AF PARAGUAYAN >60 Normal >=60 [facility] Comment on above: Performed By: #### D ATLIPI, DATPSA, DATBMP #### [facility] [address] [place] [address] Dr. Power Covarrubias EGFR-NON AF PARAGUAYAN >60 Normal >=60 [facility] Comment on above: Performed By: #### D ATLIPI, DATPSA, DATBMP #### [facility] [address] [place] [address] Dr. Power Covarrubias Globulin (S) [Mass/Vol] 3.6 g/dL Normal [facility] Comment on above: Performed By: #### D ATLIPI, DATPSA, DATBMP #### [facility] [address] [place], [place] [id number] Dr. Power Covarrubias Glucose [Mass/Vol] 90 mg/dL Normal 74-106 [facility] Comment on above: Performed By: #### D ATLIPI, DATPSA, DATBMP #### [facility] [address] [place] [address] Dr. Power Covarrubias Potassium [Moles/Vol] 3.9 mmol/L Normal 3.5-5.1 [facility] Comment on above: Performed By: #### D ATLIPI, DATPSA, DATBMP #### [facility] [address] [address] [address] Power Covarrubias Protein [Mass/Vol] 6.9 g/dL Normal 6.4-8.2 [facility] Comment on above: Performed By: #### D ATLIPI, DATPSA, DATBMP #### [facility] [address] [place] [address] Dr. Power Covarrubias Sodium [Moles/Vol] 143 mmol/L Normal 136-145 [facility] Comment on above: Performed By: #### D ATLIPI, DATPSA, DATBMP #### [facility] [address] [place] [address] Dr. Power Covarrubias Urea nitrogen [Mass/Vol] 13.0 mg/dL Normal 7.0-18.0 [facility] Comment on above: Performed By: #### D ATLIPI, DATPSA, DATBMP #### [facility] [address] [place] [address] Dr. Power Covarrubias Urea nitrogen/Creatinine [Mass ratio] 14.9 mg/mg Normal [facility] Comment on above: Performed By: #### D ATLIPI, DATPSA, DATBMP #### [facility] [address] [place] [address] Dr. Power Covarrubias TSHon 06-29-2022 TSH 2.585 uIU/mL Normal 0.358-3.740 [facility] Comment on above: Performed By: #### T SH, LIPID, FT3, CMP #### [facility] [address] [place] [address] Dr. Power Covarrubias CBC AUTO DIFFon 04-09-2022 BASO # 0.1 103/ul Normal 0.0-0.1 [facility] Comment on above: Performed By: #### D ATCBC #### [facility] [address] [place] [address] Dr. Power Covarrubias Basophils/100 WBC (Bld) 1.0 % Normal 0.2-2.0 [facility] Comment on above: Performed By: #### D ATCBC #### [facility] [address] [place] [address] Dr. Power Covarrubias EO # 0.2 103/ul Normal 0.0-0.7 [facility] Comment on above: Performed By: #### D ATCBC #### [facility] [address] [place] [address] Dr. Power Covarrubias Eosinophils/100 WBC (Bld) 3.7 % Normal 0.9-7.0 [facility] Comment on above: Performed By: #### D ATCBC #### [facility] [address] [place] [address] Dr. Power Covarrubias Erythrocyte distribution width (RBC) [Ratio] 13.3 % Normal 11.0-15.0 [facility] Comment on above: Performed By: #### D ATCBC #### [facility] [address] [place] [address] Dr. Power Covarrubias Hematocrit (Bld) [Volume fraction] 37.8 % Critically low 42.0-54.0 [facility] Comment on above: Performed By: #### D ATCBC #### [facility] [address] [place] [address] Dr. Power Covarrubias Hemoglobin (Bld) [Mass/Vol] 12.4 g/dL Critically low 14.0-18.0 [facility] Comment on above: Performed By: #### D ATCBC #### [facility] [address] [place] [address] Dr. Power Covarrubias IG # 0.01 10e3/ul Normal 0.00-0.03 [facility] Comment on above: Performed By: #### D ATCBC #### [facility] [address] [address] [address] Power Covarrubias IG % 0.2 % Normal 0.0-0.5 [facility] Comment on above: Performed By: #### D ATCBC #### [facility] [address] [place] [address] Dr. Power Covarrubias LYMPH # 1.0 103/ul Critically low 1.2-3.8 [facility] Comment on above: Performed By: #### D ATCBC #### [facility] [address] [place] [address] Dr. Power Covarrubias Lymphocytes/100 WBC (Bld) 19.0 % Critically low 20.5-60.0 [facility] Comment on above: Performed By: #### D ATCBC #### [facility] [address] [place] [address] Dr. Power Covarrubias MCH (RBC) [Entitic mass] 30.9 pg Normal 25.9-34.0 [facility] Comment on above: Performed By: #### D ATCBC #### [facility] [address] [place] [address] Dr. Power Covarrubias MCHC (RBC) [Mass/Vol] 32.8 g/dL Normal 29.9-35.2 [facility] Comment on above: Performed By: #### D ATCBC #### [facility] [address] [place] [address] Dr. Power Covarrubias MCV (RBC) [Entitic vol] 94.3 fL Critically high 80.0-94.0 [facility] Comment on above: Performed By: #### D ATCBC #### [facility] [address] [place] [address] Dr. Power Covarrubias MONO # 0.5 103/ul Normal 0.3-0.8 [facility] Comment on above: Performed By: #### D ATCBC #### [facility] [address] [place] [address] Dr. Power Covarrubias Monocytes/100 WBC (Bld) 9.4 % Normal 1.7-12.0 [facility] Comment on above: Performed By: #### D ATCBC #### [facility] [address] [address] [address] Power Covarrubias NEUT # 3.4 103/ul Normal 1.4-6.5 [facility] Comment on above: Performed By: #### D ATCBC #### [facility] [address] [address] [address] Power Covarrubias Neutrophils/100 WBC (Bld) 66.7 % Normal 43.0-75.0 [facility] Comment on above: Performed By: #### D ATCBC #### [facility] [address] [address] [address] Power Covarrubias Platelet mean volume (Bld) [Entitic vol] 9.9 fL Normal 9.5-13.5 [facility] Comment on above: Performed By: #### D ATCBC #### [facility] [address] [address] [address] Power Covarrubias PLT 205 103/ul Normal 150-450 [facility] Comment on above: Performed By: #### D ATCBC #### [facility] [address] [address] [address] Power Covarrubias RBC 4.01 106/ul Critically low 4.70-6.10 [facility] Comment on above: Performed By: #### D ATCBC #### [facility] [address] [address] [address] Power Covarrubias WBC 5.1 103/ul Normal 4.0-11.0 [facility] Comment on above: Performed By: #### D ATCBC #### [facility] [address] [address] [address] Power Covarrubias BRE- BMP WITH LIPIDon 2021 Anion gap [Moles/Vol] 9.5 mmol/L Normal [facility] Comment on above: Performed By: #### D ATLIPI, DATPSA, DATBMP #### [facility] [address] [address] [address] Power Covarrubias Calcium [Mass/Vol] 9.0 mg/dL Normal 8.5-10.1 [facility] Comment on above: Performed By: #### D ATLIPI, DATPSA, DATBMP #### [facility] [address] [address] [address] Power Covarrubias Chloride [Moles/Vol] 108 mmol/L Critically high 98-107 [facility] Comment on above: Performed By: #### D ATLIPI, DATPSA, DATBMP #### [facility] [address] [address] [address] Power Covarrubias Cholesterol [Mass/Vol] 114 mg/dL Normal <=200 [facility] Comment on above: Performed By: #### D ATLIPI, DATPSA, DATBMP #### [facility] [address] [place] [address] Dr. Power Covarrubias Cholesterol in HDL [Mass/Vol] 49 mg/dL Normal 40-60 [facility] Comment on above: Performed By: #### D ATLIPI, DATPSA, DATBMP #### [facility] [address] [place] [address] Dr. Power Covarrubias Cholesterol in LDL [Mass/Vol] 50.4 mg/dL Normal [facility] Comment on above: Performed By: #### D ATLIPI, DATPSA, DATBMP #### [facility] [address] [place] [address] Dr. Power Covarrubias CO2 [Moles/Vol] 28.3 mmol/L Normal 21.0-32.0 [facility] Comment on above: Performed By: #### D ATLIPI, DATPSA, DATBMP #### [facility] [address] [place] [address] Dr. Power Covarrubias Creatinine [Mass/Vol] 0.88 mg/dL Normal 0.70-1.30 [facility] Comment on above: Performed By: #### D ATLIPI, DATPSA, DATBMP #### [facility] [address] [place] [address] Dr. Power Covarrubias EGFR-AF PARAGUAYAN >60 Normal >=60 [facility] Comment on above: Performed By: #### D ATLIPI, DATPSA, DATBMP #### [facility] [address] [address] [address] Power Covarrubias EGFR-NON AF PARAGUAYAN >60 Normal >=60 [facility] Comment on above: Performed By: #### D ATLIPI, DATPSA, DATBMP #### [facility] [address] [address] [address] Power Covarrubias Glucose [Mass/Vol] 107 mg/dL Critically high 74-106 [facility] Comment on above: Performed By: #### D ATLIPI, DATPSA, DATBMP #### [facility] [address] [address] [address] Power Covarrubias HDL NORMAL > or = 60 mg/dl - LO W CARDIOVASCULAR RISK <40 mg/dl - HIGH CARDIOVASCULAR RISK Normal [facility] Comment on above: Performed By: #### D ATLIPI, DATPSA, DATBMP #### [facility] [address] [address] [address] Power Covarrubias LDL CALC NORMAL SEE BELOW Normal [facility] Comment on above: Result Comment: <100 mg/dl OPTIMAL 100 - 129 mg/dl NEAR OR ABOVE OPTIMAL 130 - 159 mg/dl BORDERLINE HIGH 160 - 189 mg/dl HIGH >190 mg/dl VERY HIGH Performed By: #### D ATLIPI, DATPSA, DATBMP #### [facility] [address] [address] [address] Power Covarrubias Potassium [Moles/Vol] 3.8 mmol/L Normal 3.5-5.1 [facility] Comment on above: Performed By: #### D ATLIPI, DATPSA, DATBMP #### [facility] [address] [address] [address] Power Covarrubias Sodium [Moles/Vol] 142 mmol/L Normal 136-145 [facility] Comment on above: Performed By: #### D ATLIPI, DATPSA, DATBMP #### [facility] [address] [address] [address] Power Covarrubias Triglyceride [Mass/Vol] 73 mg/dL Normal <=150 [facility] Comment on above: Performed By: #### D ATLIPI, DATPSA, DATBMP #### [facility] [address] [address] [address] Power Covarrubias Urea nitrogen [Mass/Vol] 12.0 mg/dL Normal 7.0-18.0 [facility] Comment on above: Performed By: #### D ATLIPI, DATPSA, DATBMP #### [facility] [address] [address] [address] Power Covarrubias Urea nitrogen/Creatinine [Mass ratio] 13.6 mg/mg Normal [facility] Comment on above: Performed By: #### D ATLIPI, DATPSA, DATBMP #### [facility] [address] [address] [address] Power Covarrubias VLDL CALC 14.6 mg/dL Normal [facility] Comment on above: Performed By: #### D ATLIPI, DATPSA, DATBMP #### [facility] [address] [address] [address] Power Covarrubias Cardiovascular Lab Reporton 07-03-2020 Cardiovascular Lab Report [facility] Patient Name: Oscar Cox [facility] MR #: [id number] Physician: Shiloh Hester Department of M.D. Medicine Service Date: 07/03/2020 Division of Birthdate: 1945 Cardiology Room #: Adult Cardiovascular Services [address] [place] [address] Cardiovascular Laboratory Report FINAL IMPRESSIONS: 1. Wrxd-ah-chwclele 3-vessel coronary artery disease. 2. Mlmi-ls-fpvdyheh left main coronary artery disease that appears [...] Follow up with Dr. Hester in the [facility] in the next 1 to [...] to access the left radial artery. A 6-Hungarian glide sheath was inserted without difficulty. Resistance [...] Hester M.D. Date Trans: 07/03/2020 02:42 P/anibal [id number] cc: Neo Gould M.D. [address], [facility] [place] [address] [facility] Vital Signs Date Time Vital Sign Value Performing Clinician Luis Fernandoi shantell 03-28-2023 14:23-0400 Blood Pressure Location Zhang DENISE [facility] 03-28-2023 14:23-0400 Diastolic blood pressure 60 mm[Hg] Zhang DENISE [facility] 03-28-2023 14:23-0400 Heart rate 60 /min Zhang DENISE [facility] 03-28-2023 14:23-0400 Respiratory rate 16 /min Zhang DENISE [facility] 03-28-2023 14:23-0400 Systolic blood pressure 116 mm[Hg] [facility] Date Encounter Type Care Provider Facility Start: 04-02-2024 End: 04-02-2024 ambulatory TINY TRAVIS Not Available Start: 03-19-2024 End: 03-19-2024 ambulatory Zhang DENISE Facility:[facility] [place] Start: 03-05-2024 End: 03-05-2024 ambulatory FELICIA TAPIA [facility] Start: 02-19-2024 End: 02-19-2024 ambulatory [facility] Start: 12-13-2023 End: 12-13-2023 ambulatory [facility] Start: 11-27-2023 End: 11-27-2023 [facility] Start: 09-13-2023 ambulatory Ghislaine Morales Facility:[facility] [place] Start: 06-15-2023 ambulatory Zhang DENISE Facility:[facility] [place] Start: 06-01-2023 End: 06[facility]01[facility]20[facility] Start: 05-09-2023 ambulatory Zhang DENISE Facility :[facility] [place] Start: 04-26-2023 End: 04-27-2023 ambulatory Zhang DENISE Facility:[id number] Start: 03-28-2023 End: 03-29-2023 ambulatory Zhang [...] By: #### D ATLIPI, DATPSA, DATBMP #### [facility] [address] [place], [place] [address] Dr. Power Covarrubias Start: 08-31-2022 PSA screening PEBBLES B [facility] Comment on above: Performed By: #### D ATLIPI, DATPSA, DATBMP #### [facility] [address] [place], [place] [address] Dr. Power Covarrubias Start: 06-29-2022 PSA screening PEBBLES B OES Comment on above: Performed By: #### P SASC #### [facility] [id number] Power Covarrubias Start: 10-04-2017 Colonoscopy Zhang NG Excision of lumbar intervertebral disc Zhang HOWIE Comment on above: L5 Repair of hip Zhang DENISE Immunizations Immunization Date Immunization Notes Care Provider Fa cili 04-29-2021 SARS-CoV-2 (COVID-19 ) mRNA BNT-162b2 vax Zhang NILL [facility] [place] 04-09-2021 SARS-CoV-2 (COVID-19 ) mRNA BNT-162b2 vax Zhang NILL [facility] [place] Payers Date Payer Category Payer Self-pay 1958 Unknown [id number] 1945 Unknown [id number] 2.16.84 [id number] 1945 Unknown [id number] 2.16.84 [id number] 1945 Unknown [id number] 2.16.8 [id number] 1945 Unknown [id number] 2.16.8 [id number] 1945 Unknown [id number] 2.16.8 [id number] 1945 Unknown [id number] 2.16.8 [id number] 1945 Unknown [id number] 2.16.8 [id number] 1945 Unknown [id number] 2.16.8 [id number] 1945 Unknown [id number] 2.16.84 [id number] 1945 Unknown [id number] 2.16.84 [id number] Unknown [id number] 2.16.84 [id number] Unknown [id number] 2.16.84 [id number] Unknown [id number] 2.16.84 [id number] Social History Date Type Detail Facility Start: 03-28-2023 Tobacco smoking status Never s moked tobacco (finding) [facility] [place] Tobacco smoking status Never [facility] [place] Sex Assigned At Male [facility] Functional Status Date Assessment Result Facility 03-28-2023 Functional Status N/A [facility] Progress note 02-19-2024 Note Date & Type Note Facility 02-19-2024 Note [facility] Note Chief Complaint: Patient here for follow up [facility] for elevated troponin and bradycardia. He [...] 07/03/2020 Cardiovascular Laboratory Report FINAL IMPRESSIONS: 1. Zdeb-di-iyhyeaxr 3-vessel coronary artery disease. 2. Cxsq-gr-oioymopg left main coronary artery disease that appears unchanged from prior angiography. 3. Normal global left ventricular (more content not included)... [facility] Progress note 12-13-2023 Note Date & Type Note Facility 12-13-2023 Note [facility] Cardiology Clinic Note Chief Complaint: Patient [...] 07/03/2020 Cardiovascular Laboratory Report FINAL IMPRESSIONS: 1. Yiaw-yl-jxuiqhnl 3-vessel coronary artery disease. 2. Ysxp-yf-vvjufqhi left main coronary artery disease that appears [...] sever (more content not included)... [facility] Progress note 11-27-2023 Note Date & Type Note Facility 11-27-2023 Note [facility] Subjective Oscar Cox is [...] Cognitive communication deficit Atherosclerotic heart disease of habematolel coronary artery without angina pectoris Diarrhea Hypokalemia [...] discuss left atrial appendage closure. His primary caddy packer is Dr Shiloh Hester. He has history [...] visit (more content not included)... [facility] Progress note 06-01-2023 Note Date & [...] month ago He was admitted 04/28-05/02 at [facility] following the last fall and [...] ho (more content not included)... [facility] Clinical Note 03-28-2023 Note Date & [...] informed consent obtained. 2. Chronic anticoagulation (Z79.01: [facility] (current) use of anticoagulants) hold Eliquis 2 [...] SARS-CoV-2 (COVID-19) mRNA BNT-162b2 vax 04/09/[address] [facility] Comment on above: Result Comment: Elec tronically Signed By: HOWIE LOPEZ, Zhang Yan\Date and Time Signed: 03/28/23 20:17 EDT Evaluation + Plan note Note Date & Type Note Facility Evaluation + Plan note No data available for this section [facility] Discharge instructions Note Date & Type Note Facility Hospital Discharge instructions No data available for this section [facility] [place] Progress note Note Date & Type Note Facility Progress note No data available for this section [facility] [place] Summary Purpose Family History No Family History [...] CREATED AUTHOR AUTHOR'S ORGANIZ ATION 03/02/2023 [facility] DATE CREATED AUTHOR AUTHOR'S ORGANIZ ATION 03/08/2024 [facility] DATE CREATED AUTHOR AUTHOR'S ORGANIZ ATION 03/12/2024 [facility] DATE CREATED AUTHOR AUTHOR'S ORGANIZ ATION 04/04/2024 [facility] EPIC DATE CREATED AUTHOR AUTHOR'S ORGANIZ ATION 04/09/2024 [facility] Patient Care team informatio n (unrecognized section and content) Personnel Name: Neo Guold MD Address: Address: [address] [place], [place] [address] FOR RECORDS PERTAINING TO PATIENTS WHO [...] BE BASED ON THE PRIMARY CLINICAL RECORDS. [facility]. provides no warranty or guarantee of the accuracy or completeness of information in this document.
--- NOTE | 2024-07-24 14:42 | PM.CN ---
Consult Note: HPI Data of Consult Patient: known to practice within the last 3 years Requesting Physician: Radha Mireles NP Primary Care Provider: Javier Gould MD Consult Narrative Reason for consult: f/u Narrative: Oscar Cox a pleasant 79 year old male presents for evaluation of generalized OA pain, most significantly his cervical spine. Patient rating pain 6-7/10 today increasing with weather changes, sitting, standing, activity. Pain improved with sleep and lying down. Pt has failed to benefit from greater than 6 weeks of PT, cannot take NSAIDs due to eliquis, finds no benefit to heat/ice. patient utilizing PRN tylenol, topical lidocaine and baclofen 5mg BID PRN with mild relief. noting mild relief from duloxetine 30mg HS but noticing mild urinary retention since starting. recent bilateral C2-3 C3-4 MBB #1 provided >80% improvement immediately following and hours after the procedure, preop pain 7/10, post op 1-2. cc:: CC: Radha Mireles NP Review of Systems ROS Status of ROS 10 or more systems reviewed and unremarkable except as noted in history and below Musculoskeletal Reports: back pain, neck pain and extremity pain [facility] Medical History (Updated 06/27/24 @ 14:48 by Radha Mireles NP) Fall ?W19.XXXA - Unspecified fall, initial encounter (ICD-10) Weakness ?R53.1 - Weakness (ICD-10) Inability to walk ?R26.2 - Difficulty in walking, not elsewhere classified (ICD-10) Near syncope ?R55 - Syncope and collapse (ICD-10) Left leg weakness ?R29.898 - Other symptoms and signs involving the musculoskeletal system (ICD-10) Leg pain, left ?M79.605 - Pain in left leg (ICD-10) Frequent falls ?R29.6 - Repeated falls (ICD-10) Bradycardia with 31-40 beats per minute ?R00.1 - Bradycardia, unspecified (ICD-10) Hypokalemia ?E87.6 - Hypokalemia (ICD-10) PVC (premature ventricular contraction) ?I49.3 - Ventricular premature depolarization (ICD-10) Lower extremity edema ?R60.0 - Localized edema (ICD-10) Obesity ?E66.9 - Obesity, unspecified (ICD-10) Hypertension ?I10 - Essential (primary) hypertension (ICD-10) Prostate cancer ?C61 - Malignant neoplasm of prostate (ICD-10) Colon polyps ?K63.5 - Polyp of colon (ICD-10) Heart failure, diastolic ?I50.30 - Unspecified diastolic (congestive) heart failure (ICD-10) Coronary arteriosclerosis ?I25.10 - Atherosclerotic heart disease of [place] coronary artery without angina pectoris (ICD-10) Chronic anticoagulation ?Z79.01 - 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) use of anticoagulants (ICD-10) Cervical disc disease ?M50.90 - Cervical disc disorder, unspecified, unspecified cervical region (ICD-10) Atrial fibrillation ?I48.91 - Unspecified atrial fibrillation (ICD-10) Surgical History History of tonsillectomy and adenoidectomy ?Z90.89 - Acquired absence of other organs (ICD-10) H/O lumbar discectomy ?Z98.890 - Other specified postprocedural states (ICD-10) H/O total hip arthroplasty ?Z96.649 - Presence of unspecified artificial hip joint (ICD-10) H/O colonoscopy with polypectomy ?Z98.890 - Other specified postprocedural states (ICD-10) ?Z86.010 - Personal history of colonic polyps (ICD-10) Family History Other Family history not known due to adoption Social History Within the past year, how often did you have a drink containing alcohol: never Score interpretation: A score less than 4 is consistent with normal alcohol consumption. 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 Known occupational exposures/hazards: No Highest level of school completed/degree received: high school graduate Do you want help with school or training: No Are you now , , , , never or living with a partner: In a typical week, how many times do you talk on the telephone with family, friends, or neighbors: 3 or more times per week How often do you get together with friends or relatives: once per week How often do you attend uatsdin or episcopal services: never Do you belong to any clubs or organizations such as uatsdin groups unions, fraternal or athletic groups, or school groups: no Total score: 1 Score interpretation: A score of less than or equal to 1 indicates the most socially isolated. Little interest or pleasure in doing things: not at all Feeling down, depressed, or hopeless: not at all Feel stressed/tense/nervous/anxious/difficulty sleeping: not at all Due to disability, difficulty making decisions: No Do you think of yourself as: straight/heterosexual Gender Identity: male Meds Home Medications and Allergies Home Medications ?Medication ?Instructions ?Recorded ?Confirmed ?Type furosemide 40 mg tablet 40 mg PO Q12H 04/12/23 07/16/24 History acetaminophen 500 mg tablet 1,000 mg (2 x 500 mg) PO Q6H PRN 05/02/23 07/16/24 Rx (Tylenol Extra Strength) Pain Scale 1-3 #120 tabs apixaban 5 mg tablet (Eliquis) 5 mg PO Q12H 01/20/24 07/16/24 History hydralazine 50 mg tablet 50 mg PO BID #60 tabs 02/16/24 07/16/24 Rx ropinirole 1 mg tablet 1 mg PO QHS #30 tabs 02/16/24 07/16/24 Rx atorvastatin 80 mg tablet 80 mg PO DAILY 04/02/24 07/16/24 History carvedilol 12.5 mg tablet 6.25 mg PO Q12H 04/02/24 07/16/24 History multivitamin 1 tab PO DAILY 04/02/24 07/16/24 History Allergies Allergy/AdvReac Type Severity Reaction Status Date / Time No Known Drug Allergies Allergy Verified 07/16/24 09:24 Exam Constitutional Documenting provider has reviewed patient's vital signs: yes Common normals: no apparent distress, oriented x3, healthy appearing, alert and well nourished General appearance: cooperative HENMT Common normals: normocephalic, hearing grossly normal bilaterally and moist oral mucous membranes Head and scalp: normocephalic Eye Common normals: PERRL Pupil: PERRL Neck & C-Spine Common normals: full ROM General: normal visual inspection Cervical spine: cervical ROM normal, pain with cervical ROM and cervical spine tenderness; no paracervical muscle tenderness, no paracervical muscle spasm and no trapezius muscle tenderness Other: positive facet loading C2-4 right greater than left negative spurlings strength 5/5 in BUE Chest Common normals: inspection of chest normal Respiratory Common normals: normal respiratory effort, no retractions and no use of accessory muscles Neuro Common normals: oriented x3, CN's II-XII intact bilaterally, moves all extremities, no focal motor deficits, no sensory deficits noted and deep tendon reflexes 2+ bilaterally Sensorium/orientation: alert Motor exam: strength 5/5 throughout and no movement abnormalities noted Psych Common normals: mental status grossly normal, thought process normal, cooperative, affect normal, speech normal and activity/motor behavior normal Speech: normal speech Thought process: normal thought process Results Additional Findings Additional findings: If on a controlled substance or opioids, I have checked an [place] report on this patient and there are no aberrancies noted in the prescribing history.??If on a controlled substance or opioid a drug screen was completed and reviewed within the last year, and if there has not been a drug screen completed we ordered one today to monitor higher risk, state monitored pain medication use. As part of providing excellent, safe, comprehensive care, the following was completed at our patient's visit: 1. A medication reconciliation and review to ensure accurate knowledge of current/active medications, including asking our patients to inform us about any [id number] medications or herbal remedies/nutritional supplements/alternative remedies. 2. A review to specifically ensure our patients have had annual screening for screening for depression, screening for tobacco use, and screening for unhealthy alcohol use. For concerning screenings had a discussion with the patient, provided patient education, and recommended follow-up with primary care provider when appropriate. If patient noted with a risk of falling, they received education on strength, gait, and balance training to prevent future risk of falling. Assessment and Plan Assessment and Plan (1) Cervical spondylosis: (2) Myofascial pain: (3) Generalized OA: (4) Chronic pain syndrome: Plan bilateral C2-3 C3-4 MBB #2 working towards RFA to be completed under fluoroscopy, risks vs benefits reviewed decrease duloxetine 20mg HS for generalized OA, CPS f/u after each injection
== END 2024-07-24 14:04 | disposition home or self-care (01) ==
LOC: PM 14:03
PROVIDERS: PCP Family Medicine; Visit Provider Nurse Practitioner
DX: M47.812 Spondylosis without myelopathy or radiculopathy, cervical region (principal); M79.18 Myalgia, other site; M15.9 Polyosteoarthritis, unspecified; G89.4 Chronic pain syndrome
CPT/HCPCS: G0463

== ENCOUNTER 2024-07-26 15:21 | Emergency (ER) | payer MEDICARE, SELFPAY ==
[2024-07-26 15:24] VITALS: BP 121/50; PULSE 52; TEMP 36.7; O2SAT 97; BMI 32.3
--- NOTE | 2024-07-26 15:34 | XR_ITS ---
The [address] [address] Patient Name: JACKSON IQBAL MRN: [id number] date: 1945 Sex: M Assigned Patient Location: ED.MAIN Current Patient Location: ED.MAIN Accession/Order Number: [id number] Exam Date: 07/26/2024 15:50 Report Date: 07/26/2024 16:19 At the request of: RADHA JACOBSON Procedure: XR shoulder RT min 2V EXAM: XR shoulder RT min 2V HISTORY: pain COMPARISON: None. TECHNIQUE: 3 views of the right shoulder. FINDINGS: Bones: No acute fracture or aggressive appearing bony lesion. Joints: Normal alignment. 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 Heterotopic calcifications are noted at the acromioclavicular joint. 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 Soft tissues: Unremarkable. XR/XR shoulder RT min 2V IMPRESSION: No evidence of fracture. Degenerative changes and possible ligamentous injury. Shoulder MRI or ultrasound is recommended for better evaluation. Electronically authenticated by: JEFFY PAUL Date: 07/26/2024 16:19
--- OUTSIDE RECORDS SUMMARY | 2024-07-26 15:36 | XMS_ITS | CCD ---
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] Onset: 12-13-2023 03-15-2023 Chronic Disorders of lipid metabolism (4 sources) Hyperlipidemia, unspecified; 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: [HYPERLIPIDEMIA UNSPECIFIED] Onset: 06-29-2022 Chronic Essential hypertension (3 sources) Hypertensive disorder; 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: [Essential (primary) hypertension] Onset: 05-11-2023 03-15-2023 Chronic Osteoarthritis (4 sources) Primary generalized (osteo)arthritis; 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: [PRIMARY GENERALIZED OSTEOARTHRITIS] Onset: 12-10-2022 Chronic Other aftercare (1 source) Other alf (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 therapy; 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: [OTH FPC CURRENT DRUG THERAPY] Onset: 12-14-2022 Episodic Other aftercare (2 sources) Long-term current use of anticoagulant; 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 Normal [facility] 36on 03-07-2024 36 PT INFIRMED AND ORDE R SENT Normal [facility] Office Visiton 02-19-2024 Follow-up visit [id number] Oscar Cox 1945 M Date Provider Department Center 02/19/2024 SHILOH SANTACRUZ Family History Family history unknown: Yes Level of Service:73902 OR OFFICE/OUTPATIENT ESTABLISHED LOW MDM 20 MIN Normal [facility] Office Visiton 12-13-2023 Follow-up visit [id number] Oscar Cox 1945 Date Provider Department Center 12/13/2023 271-DENISHUNGUANAKITOJaclynSHILOH ABILIO [facility] Family History Family history unknown: Yes Level of Service:08580 OR OFFICE/OUTPATIENT ESTABLISHED MOD MDM 30 MIN [facility] Office Visiton 11-27-2023 Follow-up visit [id number] Oscar Cox 1945 [facility] Provider Department Center 11/27/2023 367-JONATHAN HARRISON ABILIO [facility] Family History Family history unknown: Yes Level of Service:72951 OR OFFICE/OUTPATIENT ESTABLISHED MOD MDM 30 MIN Normal [facility] Group Home Recordson 07-04 Group Home Records [id number] CD:127 [facility] 37on 06-01-2023 37 -Reduce Lisinopril t o 10 mg once a day -Will get an ultrasound of your heart -Continue Lasix 40 mg twice a day -Follow-up with Dr. Harrison to discuss watchman -Start Eliquis 2.5 mg twice a day and monitor for more bleeding [facility] Office Visiton 06-01-2023 Follow-up visit [id number] Oscar Cox 1945 [facility] Provider Department Center 06/01/2023 [id number]-APHTPZAUMANATOLIY NOVAK ABILIO [facility] Family History Family history unknown: Yes Level of Service:68665 OR OFFICE/OUTPATIENT ESTABLISHED MOD MDM 30-39 MIN Reason for Visit and Comments: Follow-up [883917] - Concerns due to increased swelling bilateral legs and also having blood in urine - Eliquis is being held at the moment Normal [facility] Orders Onlyon 06-01-2023 Orders Only [id number] Oscar Cox 1945 [facility] Provider Department Center 06/01/2023 Erika-ELVIN RIVAS ABILIO Favian [facility] Family History Family history unknown: Yes [facility] Reminderson 05-10-2023 Reminders - From: Pennie Bose LPN To: GSN - Clinical; Sent: 05/10/2023 10:13:27 EDT Show up: 03/27/2028 07:00:00 EDT Subject: colonoscopy recall Due Date/Time: 04/26/2028 07:00:00 EDT Reminder/Recall Patient due for surveillance colonoscopy 04/26/2028. Normal [facility] Pathology Noteon 05-03-2023 Pathology Note [id number] 0CD:127 Normal [facility] Outside Colonoscopyon 2022 Outside Colonoscopy [id number] 0CD:127 [facility] Pre-Certification Formon Pre-Certification Form [id number]. 00CD:127 [facility] Consent for Procedure/Surger yon 03-29-2023 Consent for Procedure/Surgery [id number] 0CD:127 [facility] Ambulatory Visit Summaryon 0 03-28-2023 Ambulatory Visit [...] history of colonic polyps Premature beats Normal [facility] CBC AUTO DIFFon 03-01-2023 BASO # 0.0 103/ul Normal 0.0-0.1 [facility] Comment on above: Performed By: #### D ATCBC #### [facility] [address] [place] [address] Dr. Power Covarrubias Basophils/100 WBC (Bld) 0.7 % Normal 0.2-2.0 [facility] Comment on above: Performed By: #### D ATCBC #### [facility] [address] [address] [address] Power Covarrubias EO # 0.1 103/ul Normal 0.0-0.7 [facility] Comment on above: Performed By: #### D ATCBC #### [facility] [address] [place] [address] Dr. Power Covarrubias Eosinophils/100 WBC (Bld) 1.8 % Normal 0.9-7.0 [facility] Comment on above: Performed By: #### D ATCBC #### [facility] [address] [place] [address] Dr. Power Covarrubias Erythrocyte distribution width (RBC) [Ratio] 13.3 % Normal 11.0-15.0 [facility] Comment on above: Performed By: #### D ATCBC #### [facility] [address] [place] [address] Dr. Power Covarrubias Hematocrit (Bld) [Volume fraction] 40.7 % Critically low 42.0-54.0 [facility] Comment on above: Performed By: #### D ATCBC #### [facility] [address] [place] [address] Dr. Power Covarrubias Hemoglobin (Bld) [Mass/Vol] 12.9 g/dL Critically low 14.0-18.0 [facility] Comment on above: Performed By: #### D ATCBC #### [facility] [address] [place] [address] Dr. Power Covarrubias IG # 0.01 10e3/ul Normal 0.00-0.03 [facility] Comment on above: Performed By: #### D ATCBC #### [facility] [address] [place] [address] Dr. Power Covarrubias IG % 0.2 % Normal 0.0-0.5 [facility] Comment on above: Performed By: #### D ATCBC #### [facility] [address] [place] [address] Dr. Power Covarrubias LYMPH # 0.7 103/ul Critically low 1.2-3.8 [facility] Comment on above: Performed By: #### D ATCBC #### [facility] [address] [place] [address] Dr. Power Covarrubias Lymphocytes/100 WBC (Bld) 16.3 % Critically low 20.5-60.0 [facility] Comment on above: Performed By: #### D ATCBC #### [facility] [address] [place] [address] Dr. Power Covarrubias MCH (RBC) [Entitic mass] 29.6 pg Normal 25.9-34.0 [facility] Comment on above: Performed By: #### D ATCBC #### [facility] [address] [address] [address] Power Covarrubias MCHC (RBC) [Mass/Vol] 31.7 g/dL Normal 29.9-35.2 [facility] Comment on above: Performed By: #### D ATCBC #### [facility] [address] [place] [address] Dr. Power Covarrubias MCV (RBC) [Entitic vol] 93.3 fL Normal 80.0-94.0 [facility] Comment on above: Performed By: #### D ATCBC #### [facility] [address] [place] [address] Dr. Power Covarrubias MONO # 0.3 103/ul Normal 0.3-0.8 [facility] Comment on above: Performed By: #### D ATCBC #### [facility] [address] [place] [address] Dr. Power Covarrubias Monocytes/100 WBC (Bld) 7.5 % Normal 1.7-12.0 [facility] Comment on above: Performed By: #### D ATCBC #### [facility] [address] [place] [address] Dr. Power Covarrubias NEUT # 3.4 103/ul Normal 1.4-6.5 [facility] Comment on above: Performed By: #### D ATCBC #### [facility] [address] [place] [address] Dr. Power Covarrubias Neutrophils/100 WBC (Bld) 73.5 % Normal 43.0-75.0 [facility] Comment on above: Performed By: #### D ATCBC #### [facility] [address] [place] [address] Dr. Power Covarrubias Platelet mean volume (Bld) [Entitic vol] 9.9 fL Normal 9.5-13.5 [facility] Comment on above: Performed By: #### D ATCBC #### [facility] [address] [place] [address] Dr. Power Covarrubias PLT 198 103/ul Normal 150-450 [facility] Comment on above: Performed By: #### D ATCBC #### [facility] [address] [address] [address] Power Covarrubias RBC 4.36 106/ul Critically low 4.70-6.10 [facility] Comment on above: Performed By: #### D ATCBC #### [facility] [address] [address] [address] Power Covarrubias WBC 4.6 103/ul Normal 4.0-11.0 [facility] Comment on above: Performed By: #### D ATCBC #### [facility] [address] [address] [address] Power Covarrubias BRE - LIPID PROFILEon 2022 CHOL-HDL RATIO NORM SEE BELOW Normal [facility] Comment on above: Result Comment: 3.3 - 4.4 LOW RISK 4.4 - 7.1 AVERAGE RISK 7.1 - 11.0 MODERATE RISK >11.0 HIGH RISK Performed By: #### D ATLIPI, DATPSA, DATBMP #### [facility] [address] [place] [address] Dr. Power Covarrubias Cholesterol.total/Ch olesterol in HDL [Mass ratio] 2.2 {ratio} Normal [facility] Comment on above: Performed By: #### D ATLIPI, DATPSA, DATBMP #### [facility] [address] [place] [address] Dr. Power Covarrubias BRE- BMP WITH LIPIDon 2022 Anion gap [Moles/Vol] 12.8 mmol/L Normal [facility] Comment on above: Performed By: #### D ATLIPI, DATPSA, DATBMP #### [facility] [address] [address] [address] Power Covarrubias Calcium [Mass/Vol] 9.3 mg/dL Normal 8.5-10.1 [facility] Comment on above: Performed By: #### D ATLIPI, DATPSA, DATBMP #### [facility] [address] [place] [address] Dr. Power Covarrubias Chloride [Moles/Vol] 107 mmol/L Normal 98-107 [facility] Comment on above: Performed By: #### D ATLIPI, DATPSA, DATBMP #### [facility] [address] [place] [address] Dr. Power Covarrubias Cholesterol [Mass/Vol] 123 mg/dL Normal <=200 [facility] Comment on above: Performed By: #### D ATLIPI, DATPSA, DATBMP #### [facility] [address] [address] [address] Power Covarrubias Cholesterol in HDL [Mass/Vol] 56 mg/dL Normal 40-60 [facility] Comment on above: Performed By: #### D ATLIPI, DATPSA, DATBMP #### [facility] [address] [place] [address] Dr. Power Covarruibas Cholesterol in LDL [Mass/Vol] 52.0 mg/dL Normal [facility] Comment on above: Performed By: #### D ATLIPI, DATPSA, DATBMP #### [facility] [address] [place] [address] Dr. Power Covarrubias CO2 [Moles/Vol] 28.7 mmol/L Normal 21.0-32.0 [facility] Comment on above: Performed By: #### D ATLIPI, DATPSA, DATBMP #### [facility] [address] [place] [address] Dr. Power Covarrubias Creatinine [Mass/Vol] 0.93 mg/dL Normal 0.70-1.30 [facility] Comment on above: Performed By: #### D ATLIPI, DATPSA, DATBMP #### [facility] [address] [place] [address] Dr. Power Covarrubias EGFR-AF DJIBOUTIAN >60 Normal >=60 [facility] Comment on above: Performed By: #### D ATLIPI, DATPSA, DATBMP #### [facility] [address] [place] [address] Dr. Power Covarrubias EGFR-NON AF DJIBOUTIAN >60 Normal >=60 [facility] Comment on above: Performed By: #### D ATLIPI, DATPSA, DATBMP #### [facility] [address] [address] [address] Power Covarrubias Glucose [Mass/Vol] 97 mg/dL Normal 74-106 [facility] Comment on above: Performed By: #### D ATLIPI, DATPSA, DATBMP #### [facility] [address] [address] [address] Power Covarrubias HDL NORMAL > or = 60 mg/dl - LO W CARDIOVASCULAR RISK <40 mg/dl - HIGH CARDIOVASCULAR RISK Normal [facility] Comment on above: Performed By: #### D ATLIPI, DATPSA, DATBMP #### [facility] [address] [address] [address] oPwer Covarrubias LDL CALC NORMAL SEE BELOW Normal [facility] Comment on above: Result Comment: <100 mg/dl OPTIMAL 100 - 129 mg/dl NEAR OR ABOVE OPTIMAL 130 - 159 mg/dl BORDERLINE HIGH 160 - 189 mg/dl HIGH >190 mg/dl VERY HIGH Performed By: #### D ATLIPI, DATPSA, DATBMP #### [facility] [address] [address] [address] Power Covarrubias Potassium [Moles/Vol] 3.5 mmol/L Normal 3.5-5.1 [facility] Comment on above: Performed By: #### D ATLIPI, DATPSA, DATBMP #### [facility] [address] [address] [address] Power Covarrubias Sodium [Moles/Vol] 145 mmol/L Normal 136-145 [facility] Comment on above: Performed By: #### D ATLIPI, DATPSA, DATBMP #### [facility] [address] [address] [address] Power Covarrubias Triglyceride [Mass/Vol] 75 mg/dL Normal <=150 [facility] Comment on above: Performed By: #### D ATLIPI, DATPSA, DATBMP #### [facility] [address] [address] [address] Power Covarrubias Urea nitrogen [Mass/Vol] 11.0 mg/dL Normal 7.0-18.0 [facility] Comment on above: Performed By: #### D ATLIPI, DATPSA, DATBMP #### [facility] [address] [place] [address] Dr. Power Covarrubias Urea nitrogen/Creatinine [Mass ratio] 11.8 mg/mg Normal [facility] Comment on above: Performed By: #### D ATLIPI, DATPSA, DATBMP #### [facility] [address] [place] [address] Dr. Power Covarrubias VLDL CALC 15.0 mg/dL Normal [facility] Comment on above: Performed By: #### D ATLIPI, DATPSA, DATBMP #### [facility] [address] [place] [address] Dr. Power Covarrubias GLYCOHEMOGLOBIN A1Con 2022 ADA RECOMMENDATION SEE BELOW Normal [facility] Comment on above: Result Comment: ADA RECOMMENDED LIMIT 4.0 - 6.0 ADA THERAPEUTIC TARGET < 7.0 ACTION SUGGESTED > 7.0 Performed By: #### D ATLIPI, DATPSA, DATBMP #### [facility] [address] [place] [address] Dr. Power Covarrubias Glucose [Mass/Vol] 105 mg/dL Normal [facility] Comment on above: Performed By: #### D ATLIPI, DATPSA, DATBMP #### [facility] [address] [place] [address] Dr. Power Covarrubias HbA1c (Bld) [Mass fraction] 5.3 % Normal 4.5-6.2 [facility] Comment on above: Performed By: #### D ATLIPI, DATPSA, DATBMP #### [facility] [address] [place] [address] Dr. Power Covarrubias CBC AUTO DIFFon 12-10-2022 BASO # 0.0 103/ul Normal 0.0-0.1 [facility] Comment on above: Performed By: #### D ATLIPI, DATPSA, DATBMP #### [facility] [address] [place] [address] Dr. Power Covarrubias Basophils/100 WBC (Bld) 0.4 % Normal 0.2-2.0 [facility] Comment on above: Performed By: #### D ATLIPI, DATPSA, DATBMP #### [facility] [address] [place] [address] Dr. Power Covarrubias EO # 0.2 103/ul Normal 0.0-0.7 [facility] Comment on above: Performed By: #### D ATLIPI, DATPSA, DATBMP #### [facility] [address] [place] [address] Dr. Power Covarrubias Eosinophils/100 WBC (Bld) 3.6 % Normal 0.9-7.0 [facility] Comment on above: Performed By: #### D ATLIPI, DATPSA, DATBMP #### [facility] [address] [place] [address] Dr. Power Covarrubias Erythrocyte distribution width (RBC) [Ratio] 13.5 % Normal 11.0-15.0 [facility] Comment on above: Performed By: #### D ATLIPI, DATPSA, DATBMP #### [facility] [address] [place] [address] Dr. Power Covarrubias Hematocrit (Bld) [Volume fraction] 37.5 % Critically low 42.0-54.0 [facility] Comment on above: Performed By: #### D ATLIPI, DATPSA, DATBMP #### [facility] [address] [place] [address] Dr. Power Covarrubias Hemoglobin (Bld) [Mass/Vol] 12.0 g/dL Critically low 14.0-18.0 [facility] Comment on above: Performed By: #### D ATLIPI, DATPSA, DATBMP #### [facility] [address] [place] [address] Dr. Power Covarrubias IG # 0.02 10e3/ul Normal 0.00-0.03 [facility] Comment on above: Performed By: #### D ATLIPI, DATPSA, DATBMP #### [facility] [address] [place] [address] Dr. Power Covarrubias IG % 0.4 % Normal 0.0-0.5 [facility] Comment on above: Performed By: #### D ATLIPI, DATPSA, DATBMP #### [facility] [address] [place] [address] Dr. Power Covarrubias LYMPH # 0.9 103/ul Critically low 1.2-3.8 [facility] Comment on above: Performed By: #### D ATLIPI, DATPSA, DATBMP #### [facility] [address] [place] [address] Dr. Power Covarrubias Lymphocytes/100 WBC (Bld) 17.7 % Critically low 20.5-60.0 [facility] Comment on above: Performed By: #### D ATLIPI, DATPSA, DATBMP #### [facility] [address] [place] [address] Dr. Power Covarrubias MANUAL DIFF REQ NO Normal [facility] Comment on above: Performed By: #### D ATLIPI, DATPSA, DATBMP #### [facility] [address] [place] [address] Dr. Power Covarrubias MCH (RBC) [Entitic mass] 29.7 pg Normal 25.9-34.0 [facility] Comment on above: Performed By: #### D ATLIPI, DATPSA, DATBMP #### [facility] [address] [place] [address] Dr. Power Covarrubias MCHC (RBC) [Mass/Vol] 32.0 g/dL Normal 29.9-35.2 [facility] Comment on above: Performed By: #### D ATLIPI, DATPSA, DATBMP #### [facility] [address] [place] [address] Dr. Power Covarrubias MCV (RBC) [Entitic vol] 92.8 fL Normal 80.0-94.0 [facility] Comment on above: Performed By: #### D ATLIPI, DATPSA, DATBMP #### [facility] [address] [place] [address] Dr. Power Covarrubias MONO # 0.6 103/ul Normal 0.3-0.8 [facility] Comment on above: Performed By: #### D ATLIPI, DATPSA, DATBMP #### [facility] [address] [place] [address] Dr. Power Covarrubias Monocytes/100 WBC (Bld) 11.1 % Normal 1.7-12.0 [facility] Comment on above: Performed By: #### D ATLIPI, DATPSA, DATBMP #### [facility] [address] [place] [address] Dr. Power Covarrubias NEUT # 3.6 103/ul Normal 1.4-6.5 [facility] Comment on above: Performed By: #### D ATLIPI, DATPSA, DATBMP #### [facility] [address] [place] [address] Dr. Power Covarrubias Neutrophils/100 WBC (Bld) 66.8 % Normal 43.0-75.0 [facility] Comment on above: Performed By: #### D ATLIPI, DATPSA, DATBMP #### [facility] [address] [place] [address] Dr. Power Covarrubias Platelet mean volume (Bld) [Entitic vol] 9.8 fL Normal 9.5-13.5 [facility] Comment on above: Performed By: #### D ATLIPI, DATPSA, DATBMP #### [facility] [address] [place] [address] Dr. Power Covarrubias PLT 199 103/ul Normal 150-450 [facility] Comment on above: Performed By: #### D ATLIPI, DATPSA, DATBMP #### [facility] [address] [place] [address] Dr. Power Covarrubias RBC 4.04 106/ul Critically low 4.70-6.10 [facility] Comment on above: Performed By: #### D ATLIPI, DATPSA, DATBMP #### [facility] [address] [place] [address] Dr. Power Covarrubias WBC 5.3 103/ul Normal 4.0-11.0 [facility] Comment on above: Performed By: #### D ATLMACK, DATPSA, DATBMP #### [facility] [address] [place] [address] Dr. Power Covarrubias PROF 14(COMP METB)on 023 Albumin [Mass/Vol] 3.3 g/dL Critically low 3.4-5.[address] [facility] Comment on above: Performed By: #### C MP #### [facility] [address] [place] [address] Dr. Power Covarrubias Albumin/Globulin [Mass ratio] 0.9 {ratio} Normal [facility] Comment on above: Performed By: #### C MP #### [facility] [address] [place] [address] Dr. Power Covarrubias ALP [Catalytic activity/Vol] 99 U/L Normal 46-116 [facility] Comment on above: Performed By: #### C MP #### [facility] [address] [place] [address] Dr. Power Covarrubias ALT [Catalytic activity/Vol] 17 U/L Normal 16-63 [facility] Comment on above: Performed By: #### C MP #### [facility] [address] [place] [address] Dr. Power Covarrubias Anion gap [Moles/Vol] 11.6 mmol/L Normal [facility] Comment on above: Performed By: #### C MP #### [facility] [address] [place] [address] Dr. Power Covarrubias AST [Catalytic activity/Vol] 15 U/L Normal 15-37 [facility] Comment on above: Performed By: #### C MP #### [facility] [address] [place] [address] Dr. Power Covarrubias Bilirubin [Mass/Vol] 0.6 mg/dL Normal 0.2-1.0 [facility] Comment on above: Performed By: #### C MP #### [facility] [address] [address] [address] Power Covarrubias Calcium [Mass/Vol] 9.4 mg/dL Normal 8.5-10.1 [facility] Comment on above: Performed By: #### C MP #### [facility] [address] [address] [address] Power Covarrubias Chloride [Moles/Vol] 107 mmol/L Normal 98-107 [facility] Comment on above: Performed By: #### C MP #### [facility] [address] [place] [address] Dr. Power Covarrubias CO2 [Moles/Vol] 29.2 mmol/L Normal 21.0-32.0 [facility] Comment on above: Performed By: #### C MP #### [facility] [address] [place] [address] Dr. Power Covarrubias Creatinine [Mass/Vol] 0.87 mg/dL Normal 0.70-1.30 [facility] Comment on above: Performed By: #### C MP #### [facility] [address] [place] [address] Dr. Power Covarrubias EGFR-AF DJIBOUTIAN >60 Normal >=60 [facility] Comment on above: Performed By: #### C MP #### [facility] [address] [place] [address] Dr. Power Covarrubias EGFR-NON AF DJIBOUTIAN >60 Normal >=60 [facility] Comment on above: Performed By: #### C MP #### [facility] [address] [address] [address] Power Covarrubias Globulin (S) [Mass/Vol] 3.6 g/dL Normal [facility] Comment on above: Performed By: #### C MP #### [facility] [address] [place] [address] Dr. Power Covarrubias Glucose [Mass/Vol] 107 mg/dL Critically high 74-106 [facility] Comment on above: Performed By: #### C MP #### [facility] [address] [place] [address] Dr. Power Covarrubias Potassium [Moles/Vol] 3.8 mmol/L Normal 3.5-5.1 [facility] Comment on above: Performed By: #### C MP #### [facility] [address] [place] [address] Dr. Power Covarrubias Protein [Mass/Vol] 6.9 g/dL Normal 6.4-8.2 [facility] Comment on above: Performed By: #### C MP #### [facility] [address] [place] [address] Dr. Power Covarrubias Sodium [Moles/Vol] 144 mmol/L Normal 136-145 [facility] Comment on above: Performed By: #### C MP #### [facility] [address] [place] [address] Dr. Power Covarrubias Urea nitrogen [Mass/Vol] 12.0 mg/dL Normal 7.0-18.0 [facility] Comment on above: Performed By: #### C MP #### [facility] [address] [place] [address] Dr. Power Covarrubias Urea nitrogen/Creatinine [Mass ratio] 13.8 mg/mg Normal [facility] Comment on above: Performed By: #### C MP #### [facility] [address] [place] [address] Dr. Power Covarrubias CBC AUTO DIFFon 08-31-2022 BASO # 0.0 103/ul Normal 0.0-0.1 [facility] Comment on above: Performed By: #### D ATLIPI DATPSA, DATBMP #### [facility] [address] [place] [address] Dr. Power Covarrubias Basophils/100 WBC (Bld) 0.7 % Normal 0.2-2.0 [facility] Comment on above: Performed By: #### D ATLIPI, DATPSA, DATBMP #### [facility] [address] [place] [address] Dr. Power Covarrubias EO # 0.2 103/ul Normal 0.0-0.7 [facility] Comment on above: Performed By: #### D ATLIPI, DATPSA, DATBMP #### [facility] [address] [place] [address] Dr. Power Covarrubias Eosinophils/100 WBC (Bld) 3.5 % Normal 0.9-7.0 [facility] Comment on above: Performed By: #### D ATLIPI, DATPSA, DATBMP #### [facility] [address] [place] [address] Dr. Power Covarrubias Erythrocyte distribution width (RBC) [Ratio] 13.2 % Normal 11.0-15.0 [facility] Comment on above: Performed By: #### D ATLIPI, DATPSA, DATBMP #### [facility] [address] [place] [address] Dr. Power Covarrubias Hematocrit (Bld) [Volume fraction] 39.3 % Critically low 42.0-54.0 [facility] Comment on above: Performed By: #### D ATLIPI, DATPSA, DATBMP #### [facility] [address] [place] [address] Dr. Power Covarrubias Hemoglobin (Bld) [Mass/Vol] 12.9 g/dL Critically low 14.0-18.0 [facility] Comment on above: Performed By: #### D ATLIPI, DATPSA, DATBMP #### [facility] [address] [place] [address] Dr. Power Covarrubias IG # 0.02 10e3/ul Normal 0.00-0.03 [facility] Comment on above: Performed By: #### D ATLIPI, DATPSA, DATBMP #### [facility] [address] [place] [address] Dr. Power Covarrubias IG % 0.4 % Normal 0.0-0.5 [facility] Comment on above: Performed By: #### D ATLIPI, DATPSA, DATBMP #### [facility] [address] [place] [address] Dr. Poewr Covarrubias LYMPH # 0.9 103/ul Critically low 1.2-3.8 [facility] Comment on above: Performed By: #### D ATLIPI, DATPSA, DATBMP #### [facility] [address] [place] [address] Dr. Power Covarrubias Lymphocytes/100 WBC (Bld) 16.4 % Critically low 20.5-60.0 [facility] Comment on above: Performed By: #### D ATLIPI, DATPSA, DATBMP #### [facility] [address] [place] [address] Dr. Power Covarrubias MCH (RBC) [Entitic mass] 30.7 pg Normal 25.9-34.0 [facility] Comment on above: Performed By: #### D ATLIPI, DATPSA, DATBMP #### [facility] [address] [place] [address] Dr. Power Covarrubias MCHC (RBC) [Mass/Vol] 32.8 g/dL Normal 29.9-35.2 [facility] Comment on above: Performed By: #### D ATLIPI, DATPSA, DATBMP #### [facility] [address] [place] [address] Dr. Power Covarrubias MCV (RBC) [Entitic vol] 93.6 fL Normal 80.0-94.0 [facility] Comment on above: Performed By: #### D ATLIPI, DATPSA, DATBMP #### [facility] [address] [place] [address] Dr. Power Covarrubias MONO # 0.5 103/ul Normal 0.3-0.8 [facility] Comment on above: Performed By: #### D ATLIPI, DATPSA, DATBMP #### [facility] [address] [place] [address] Dr. Power Covarrubias Monocytes/100 WBC (Bld) 9.0 % Normal 1.7-12.0 [facility] Comment on above: Performed By: #### D ATLIPI, DATPSA, DATBMP #### [facility] [address] [place] [address] Dr. Power Covarrubias NEUT # 3.8 103/ul Normal 1.4-6.5 [facility] Comment on above: Performed By: #### D ATLIPI, DATPSA, DATBMP #### [facility] [address] [place] [address] Dr. Power Covarrubias Neutrophils/100 WBC (Bld) 70.0 % Normal 43.0-75.0 [facility] Comment on above: Performed By: #### D ATLIPI, DATPSA, DATBMP #### [facility] [address] [place] [address] Dr. Power Covarrubias Platelet mean volume (Bld) [Entitic vol] 9.9 fL Normal 9.5-13.5 [facility] Comment on above: Performed By: #### D ATLIPI, DATPSA, DATBMP #### [facility] [address] [place] [address] Dr. Power Covarrubias PLT 195 103/ul Normal 150-450 [facility] Comment on above: Performed By: #### D ATLIPI, DATPSA, DATBMP #### [facility] [address] [place] [address] Dr. Power Covarrubias RBC 4.20 106/ul Critically low 4.70-6.10 [facility] Comment on above: Performed By: #### D ATLIPI, DATPSA, DATBMP #### [facility] [address] [place] [address] Dr. Power Covarrubias WBC 5.4 103/ul Normal 4.0-11.0 [facility] Comment on above: Performed By: #### D ATLIPI, DATPSA, DATBMP #### [facility] [address] [place] [address] Dr. Power Covarrubias BRE- BMP WITH LIPIDon 2021 Anion gap [Moles/Vol] 10.8 mmol/L Normal [facility] Comment on above: Performed By: #### D ATLIPI, DATPSA, DATBMP #### [facility] [address] [place] [address] Dr. Power Covarrubias Calcium [Mass/Vol] 9.3 mg/dL Normal 8.5-10.1 [facility] Comment on above: Performed By: #### D ATLIPI, DATPSA, DATBMP #### [facility] [address] [address] [address] Power Covarrubias Chloride [Moles/Vol] 105 mmol/L Normal 98-107 [facility] Comment on above: Performed By: #### D ATLIPI, DATPSA, DATBMP #### [facility] [address] [address] [address] Power Covarrubias Cholesterol [Mass/Vol] 123 mg/dL Normal <=200 [facility] Comment on above: Performed By: #### D ATLIPI, DATPSA, DATBMP #### [facility] [address] [place] [address] Dr. Power Covarrubias Cholesterol in HDL [Mass/Vol] 51 mg/dL Normal 40-60 [facility] Comment on above: Performed By: #### D ATLIPI, DATPSA, DATBMP #### [facility] [address] [address] [address] Power Covarrubias Cholesterol in LDL [Mass/Vol] 56.0 mg/dL Normal [facility] Comment on above: Performed By: #### D ATLIPI, DATPSA, DATBMP #### [facility] [address] [address] [address] Power Covarrubias CO2 [Moles/Vol] 28.2 mmol/L Normal 21.0-32.0 [facility] Comment on above: Performed By: #### D ATLIPI, DATPSA, DATBMP #### [facility] [address] [place] [address] Dr. Power Covarrubias Creatinine [Mass/Vol] 0.86 mg/dL Normal 0.70-1.30 [facility] Comment on above: Performed By: #### D ATLIPI, DATPSA, DATBMP #### [facility] [address] [place] [address] Dr. Power Covarrubias EGFR-AF DJIBOUTIAN >60 Normal >=60 [facility] Comment on above: Performed By: #### D ATLIPI, DATPSA, DATBMP #### [facility] [address] [address] [address] Power Covarrubias EGFR-NON AF DJIBOUTIAN >60 Normal >=60 [facility] Comment on above: Performed By: #### D ATLIPI, DATPSA, DATBMP #### [facility] [address] [address] [address] Power Covarrubias Glucose [Mass/Vol] 90 mg/dL Normal 74-106 [facility] Comment on above: Performed By: #### D ATLIPI, DATPSA, DATBMP #### [facility] [address] [address] [address] Power Covarrubias HDL NORMAL > or = 60 mg/dl - LO W CARDIOVASCULAR RISK <40 mg/dl - HIGH CARDIOVASCULAR RISK Normal [facility] Comment on above: Performed By: #### D ATLIPI, DATPSA, DATBMP #### [facility] [address] [address] [address] Power Covarrubias LDL CALC NORMAL SEE BELOW Normal [facility] Comment on above: Result Comment: <100 mg/dl OPTIMAL 100 - 129 mg/dl NEAR OR ABOVE OPTIMAL 130 - 159 mg/dl BORDERLINE HIGH 160 - 189 mg/dl HIGH >190 mg/dl VERY HIGH Performed By: #### D ATLIPI, DATPSA, DATBMP #### [facility] [address] [address] [address] Power Covarrubias Potassium [Moles/Vol] 4.0 mmol/L Normal 3.5-5.1 [facility] Comment on above: Performed By: #### D ATLIPI, DATPSA, DATBMP #### [facility] [address] [address] [address] Power Covarrubias Sodium [Moles/Vol] 140 mmol/L Normal 136-145 [facility] Comment on above: Performed By: #### D ATLIPI, DATPSA, DATBMP #### [facility] [address] [address] [address] Power Covarrubias Triglyceride [Mass/Vol] 80 mg/dL Normal <=150 [facility] Comment on above: Performed By: #### D ATLIPI, DATPSA, DATBMP #### [facility] [address] [place] [address] Dr. Power Covarrubias Urea nitrogen [Mass/Vol] 14.0 mg/dL Normal 7.0-18.0 [facility] Comment on above: Performed By: #### D ATLIPI, DATPSA, DATBMP #### [facility] [address] [place] [address] Dr. Power Covarrubias Urea nitrogen/Creatinine [Mass ratio] 16.3 mg/mg Normal [facility] Comment on above: Performed By: #### D ATLIPI, DATPSA, DATBMP #### [facility] [address] [place] [address] Dr. Power Covarrubias VLDL CALC 16.0 mg/dL Normal [facility] Comment on above: Performed By: #### D ATLIPI, DATPSA, DATBMP #### [facility] [address] [place] [address] Dr. Power Covarrubias OCC BLD IMMUNO SCREENon 06-16 OCCULT BLOOD Negative Normal NEGATIVE [facility] Comment on above: Performed By: #### O BSCRN #### [facility] [address] [place] [address] Dr. Power Covarrubias T4 LABCORPon 06-30-2022 T4 [Mass/Vol] 9.2 ug/dL Normal 4.5-12.0 [facility] Comment on above: Performed By: #### D ATLIPI, DATPSA, DATBMP #### [facility] [address] [place] [address] Dr. Power Covarrubias CBC AUTO DIFFon 06-29-2022 BASO # 0.0 103/ul Normal 0.0-0.1 [facility] Comment on above: Performed By: #### D ATLIPI, DATPSA, DATBMP #### [facility] [address] [place] [address] Dr. Power Covarrubias Basophils/100 WBC (Bld) 0.5 % Normal 0.2-2.0 [facility] Comment on above: Performed By: #### D ATLIPI, DATPSA, DATBMP #### [facility] [address] [place] [address] Dr. Power Covarrubias EO # 0.1 103/ul Normal 0.0-0.7 [facility] Comment on above: Performed By: #### D ATLIPI, DATPSA, DATBMP #### [facility] [address] [place] [address] Dr. Power Covarrubias Eosinophils/100 WBC (Bld) 2.5 % Normal 0.9-7.0 [facility] Comment on above: Performed By: #### D ATLIPI, DATPSA, DATBMP #### [facility] [address] [place] [address] Dr. Power Covarrubias Erythrocyte distribution width (RBC) [Ratio] 13.4 % Normal 11.0-15.0 [facility] Comment on above: Performed By: #### D ATLIPI, DATPSA, DATBMP #### [facility] [address] [place] [address] Dr. Power Covarrubias Hematocrit (Bld) [Volume fraction] 38.1 % Critically low 42.0-54.0 [facility] Comment on above: Performed By: #### D ATLIPI, DATPSA, DATBMP #### [facility] [address] [place] [address] Dr. Power Covarrubias Hemoglobin (Bld) [Mass/Vol] 12.0 g/dL Critically low 14.0-18.0 [facility] Comment on above: Performed By: #### D ATLIPI, DATPSA, DATBMP #### [facility] [address] [place] [address] Dr. Power Covarrubias IG # 0.01 10e3/ul Normal 0.00-0.03 [facility] Comment on above: Performed By: #### D ATLIPI, DATPSA, DATBMP #### [facility] [address] [place] [address] Dr. Power Covarrubias IG % 0.2 % Normal 0.0-0.5 [facility] Comment on above: Performed By: #### D ATLIPI, DATPSA, DATBMP #### [facility] [address] [place] [address] Dr. Power Covarrubias LYMPH # 0.9 103/ul Critically low 1.2-3.8 [facility] Comment on above: Performed By: #### D ATLIPI, DATPSA, DATBMP #### [facility] [address] [place] [address] Dr. Power Covarrubias Lymphocytes/100 WBC (Bld) 15.5 % Critically low 20.5-60.0 [facility] Comment on above: Performed By: #### D ATLIPI, DATPSA, DATBMP #### [facility] [address] [place] [address] Dr. Power Covarrubias MANUAL DIFF REQ NO Normal [facility] Comment on above: Performed By: #### D ATLIPI, DATPSA, DATBMP #### [facility] [address] [place] [address] Dr. Power Covarrubias MCH (RBC) [Entitic mass] 30.2 pg Normal 25.9-34.0 [facility] Comment on above: Performed By: #### D ATLIPI, DATPSA, DATBMP #### [facility] [address] [place] [address] Dr. Power Covarrubias MCHC (RBC) [Mass/Vol] 31.5 g/dL Normal 29.9-35.2 [facility] Comment on above: Performed By: #### D ATLIPI, DATPSA, DATBMP #### [facility] [address] [place] [address] Dr. Power Covarrubias MCV (RBC) [Entitic vol] 96.0 fL Critically high 80.0-94.0 [facility] Comment on above: Performed By: #### D ATLIPI, DATPSA, DATBMP #### [facility] [address] [place] [address] Dr. Power Covarrubias MONO # 0.5 103/ul Normal 0.3-0.8 [facility] Comment on above: Performed By: #### D ATLIPI, DATPSA, DATBMP #### [facility] [address] [place] [address] Dr. Power Covarrubias Monocytes/100 WBC (Bld) 9.5 % Normal 1.7-12.0 [facility] Comment on above: Performed By: #### D ATLIPI, DATPSA, DATBMP #### [facility] [address] [place] [address] Dr. Power Covarrubias NEUT # 4.1 103/ul Normal 1.4-6.5 [facility] Comment on above: Performed By: #### D ATLIPI, DATPSA, DATBMP #### [facility] [address] [place] [address] Dr. Power Covarrubias Neutrophils/100 WBC (Bld) 71.8 % Normal 43.0-75.0 [facility] Comment on above: Performed By: #### D ATLIPI, DATPSA, DATBMP #### [facility] [address] [place] [address] Dr. Power Covarrubias Platelet mean volume (Bld) [Entitic vol] 9.8 fL Normal 9.5-13.5 [facility] Comment on above: Performed By: #### D ATLIPI, DATPSA, DATBMP #### [facility] [address] [place] [address] Dr. Power Covarrubias PLT 212 103/ul Normal 150-450 [facility] Comment on above: Performed By: #### D ATLIPI, DATPSA, DATBMP #### [facility] [address] [place] [address] Dr. Power Covarrubias RBC 3.97 106/ul Critically low 4.70-6.10 [facility] Comment on above: Performed By: #### D ATLIPI, DATPSA, DATBMP #### [facility] [address] [place] [address] Dr. Power Covarrubias WBC 5.7 103/ul Normal 4.0-11.0 [facility] Comment on above: Performed By: #### D ATLIPI, DATPSA, DATBMP #### [facility] [address] [address] [address] Power Covarrubias FREE T3on 06-29-2022 FREE T3 2.73 pg/mlL Normal 2.18-3.98 [facility] Comment on above: Performed By: #### D ATLIPI, DATPSA, DATBMP #### [facility] [address] [address] [address] Power Covarrubias GLYCOHEMOGLOBIN A1Con 2021 ADA RECOMMENDATION SEE BELOW Normal [facility] Comment on above: Result Comment: ADA RECOMMENDED LIMIT 4.0 - 6.0 ADA THERAPEUTIC TARGET < 7.0 ACTION SUGGESTED > 7.0 Performed By: #### A 1C #### [facility] [address] [place] [address] Dr. Power Covarrubias Glucose [Mass/Vol] 114 mg/dL Normal [facility] Comment on above: Performed By: #### A 1C #### [facility] [address] [place] [address] Dr. Power Covarrubias HbA1c (Bld) [Mass fraction] 5.6 % Normal 4.5-6.2 [facility] Comment on above: Performed By: #### A 1C #### [facility] [address] [place] [address] Dr. Power Covarrubias LIPID PROFILEon 06-29-2022 CHOL-HDL RATIO NORM SEE BELOW Normal [facility] Comment on above: Result Comment: 3.3 - 4.4 LOW RISK 4.4 - 7.1 AVERAGE RISK 7.1 - 11.0 MODERATE RISK >11.0 HIGH RISK Performed By: #### D ATLIPI, DATPSA, DATBMP #### [facility] [address] [place] [address] Dr. Power Covarrubias Cholesterol [Mass/Vol] 110 mg/dL Normal <=200 [facility] Comment on above: Performed By: #### D ATLIPI, DATPSA, DATBMP #### [facility] [address] [place] [address] Dr. Power Covarrubias Cholesterol in HDL [Mass/Vol] 47 mg/dL Normal 40-60 [facility] Comment on above: Performed By: #### D ATLIPI, DATPSA, DATBMP #### [facility] [address] [address] [address] Power Covarrubias Cholesterol in LDL [Mass/Vol] 51.2 mg/dL Normal [facility] Comment on above: Performed By: #### D ATLIPI, DATPSA, DATBMP #### [facility] [address] [address] [address] Power Covarrubias Cholesterol.total/Ch olesterol in HDL [Mass ratio] 2.3 {ratio} Normal [facility] Comment on above: Performed By: #### D ATLIPI, DATPSA, DATBMP #### [facility] [address] [address] [address] Power Covarrubias HDL NORMAL > or = 60 mg/dl - LO W CARDIOVASCULAR RISK <40 mg/dl - HIGH CARDIOVASCULAR RISK Normal [facility] Comment on above: Performed By: #### D ATLIPI, DATPSA, DATBMP #### [facility] [address] [address] [address] Power Covarrubias LDL CALC NORMAL SEE BELOW Normal [facility] Comment on above: Result Comment: <100 mg/dl OPTIMAL 100 - 129 mg/dl NEAR OR ABOVE OPTIMAL 130 - 159 mg/dl BORDERLINE HIGH 160 - 189 mg/dl HIGH >190 mg/dl VERY HIGH Performed By: #### D ATLIPI, DATPSA, DATBMP #### [facility] [address] [address] [address] Power Covarrubias Triglyceride [Mass/Vol] 59 mg/dL Normal <=150 [facility] Comment on above: Performed By: #### D ATLIPI, DATPSA, DATBMP #### [facility] [address] [address] [address] Power Covarrubias VLDL CALC 11.8 mg/dL Normal [facility] Comment on above: Performed By: #### D ATLIPI, DATPSA, DATBMP #### [facility] [address] [place] [address] Dr. Power Covarrubias PROF 14(COMP METB)on 022 Albumin [Mass/Vol] 3.3 g/dL Critically low 3.4-5.[address] [facility] Comment on above: Performed By: #### D ATLIPI, DATPSA, DATBMP #### [facility] [address] [place] [address] Dr. Power Covarrubias Albumin/Globulin [Mass ratio] 0.9 {ratio} Normal [facility] Comment on above: Performed By: #### D ATLIPI, DATPSA, DATBMP #### [facility] [address] [place] [address] Dr. Power Covarrubias ALP [Catalytic activity/Vol] 100 U/L Normal 46-116 [facility] Comment on above: Performed By: #### D ATLIPI, DATPSA, DATBMP #### [facility] [address] [place] [address] Dr. Power Covarrubias ALT [Catalytic activity/Vol] 16 U/L Normal 16-63 [facility] Comment on above: Performed By: #### D ATLIPI, DATPSA, DATBMP #### [facility] [address] [place] [address] Dr. Power Covarrubias Anion gap [Moles/Vol] 11.4 mmol/L Normal [facility] Comment on above: Performed By: #### D ATLIPI, DATPSA, DATBMP #### [facility] [address] [place] [address] Dr. Power Covarrubias AST [Catalytic activity/Vol] 14 U/L Critically low 15-37 [facility] Comment on above: Performed By: #### D ATLIPI, DATPSA, DATBMP #### [facility] [address] [place] [address] Dr. Power Covarrubias Bilirubin [Mass/Vol] 0.7 mg/dL Normal 0.2-1.0 [facility] Comment on above: Performed By: #### D ATLIPI, DATPSA, DATBMP #### [facility] [address] [address] [address] Power Covarrubias Calcium [Mass/Vol] 9.0 mg/dL Normal 8.5-10.1 [facility] Comment on above: Performed By: #### D ATLIPI, DATPSA, DATBMP #### [facility] [address] [place] [address] Dr. Power Covarrubias Chloride [Moles/Vol] 107 mmol/L Normal 98-107 [facility] Comment on above: Performed By: #### D ATLIPI, DATPSA, DATBMP #### [facility] [address] [place] [address] Dr. Power Covarrubias CO2 [Moles/Vol] 28.5 mmol/L Normal 21.0-32.0 [facility] Comment on above: Performed By: #### D ATLIPI, DATPSA, DATBMP #### [facility] [facility] [address] [place] [address] Dr. Power Covarrubias Creatinine [Mass/Vol] 0.87 mg/dL Normal 0.70-1.30 [facility] Comment on above: Performed By: #### D ATLIPI, DATPSA, DATBMP #### [facility] [address] [place] [address] Dr. Power Covarrubias EGFR-AF DJIBOUTIAN >60 Normal >=60 [facility] Comment on above: Performed By: #### D ATLIPI, DATPSA, DATBMP #### [facility] [address] [place] [address] Dr. Power Covarrubias EGFR-NON AF DJIBOUTIAN >60 Normal >=60 [facility] Comment on above: Performed By: #### D ATLIPI, DATPSA, DATBMP #### [facility] [address] [place] [address] Dr. Power Covarrubias Globulin (S) [Mass/Vol] 3.6 g/dL Normal [facility] Comment on above: Performed By: #### D ATLIPI, DATPSA, DATBMP #### [facility] [address] [place], [place] [id number] Dr. Power Covarrubias Glucose [Mass/Vol] 90 mg/dL Normal 74-106 [facility] Comment on above: Performed By: #### D ATLIPI, DATPSA, DATBMP #### [facility] [address] [place] [address] Dr. Power Covarrubias Potassium [Moles/Vol] 3.9 mmol/L Normal 3.5-5.1 [facility] Comment on above: Performed By: #### D ATLIPI, DATPSA, DATBMP #### [facility] [address] [address] [address] Power Covarrubias Protein [Mass/Vol] 6.9 g/dL Normal 6.4-8.2 [facility] Comment on above: Performed By: #### D ATLIPI, DATPSA, DATBMP #### [facility] [address] [place] [address] Dr. Power Covarrubias Sodium [Moles/Vol] 143 mmol/L Normal 136-145 [facility] Comment on above: Performed By: #### D ATLIPI, DATPSA, DATBMP #### [facility] [address] [place] [address] Dr. Power Covarrubias Urea nitrogen [Mass/Vol] 13.0 mg/dL Normal 7.0-18.0 [facility] Comment on above: Performed By: #### D ATLIPI, DATPSA, DATBMP #### [facility] [address] [place] [address] Dr. Power Covarrubias Urea nitrogen/Creatinine [Mass ratio] 14.9 mg/mg Normal [facility] Comment on above: Performed By: #### D ATLIPI, DATPSA, DATBMP #### [facility] [address] [place] [address] Dr. Power Covarrubias TSHon 06-29-2022 TSH 2.585 uIU/mL Normal 0.358-3.740 [facility] Comment on above: Performed By: #### T SH, LIPID, FT3, CMP #### [facility] [address] [place] [address] Dr. Power Covarrubias CBC AUTO DIFFon 04-09-2022 BASO # 0.1 103/ul Normal 0.0-0.1 [facility] Comment on above: Performed By: #### D ATCBC #### [facility] [address] [place] [address] Dr. Power Covarrubias Basophils/100 WBC (Bld) 1.0 % Normal 0.2-2.0 [facility] Comment on above: Performed By: #### D ATCBC #### [facility] [address] [place] [address] Dr. Power Covarrubias EO # 0.2 103/ul Normal 0.0-0.7 [facility] Comment on above: Performed By: #### D ATCBC #### [facility] [address] [place] [address] Dr. Power Covarrubias Eosinophils/100 WBC (Bld) 3.7 % Normal 0.9-7.0 [facility] Comment on above: Performed By: #### D ATCBC #### [facility] [address] [place] [address] Dr. Power Covarrubias Erythrocyte distribution width (RBC) [Ratio] 13.3 % Normal 11.0-15.0 [facility] Comment on above: Performed By: #### D ATCBC #### [facility] [address] [place] [address] Dr. Power Covarrubias Hematocrit (Bld) [Volume fraction] 37.8 % Critically low 42.0-54.0 [facility] Comment on above: Performed By: #### D ATCBC #### [facility] [address] [place] [address] Dr. Power Covarrubias Hemoglobin (Bld) [Mass/Vol] 12.4 g/dL Critically low 14.0-18.0 [facility] Comment on above: Performed By: #### D ATCBC #### [facility] [address] [place] [address] Dr. Power Covarrubias IG # 0.01 10e3/ul Normal 0.00-0.03 [facility] Comment on above: Performed By: #### D ATCBC #### [facility] [address] [address] [address] Power Covarrubias IG % 0.2 % Normal 0.0-0.5 [facility] Comment on above: Performed By: #### D ATCBC #### [facility] [address] [place] [address] Dr. Power Covarrubias LYMPH # 1.0 103/ul Critically low 1.2-3.8 [facility] Comment on above: Performed By: #### D ATCBC #### [facility] [address] [place] [address] Dr. Power Covarrubias Lymphocytes/100 WBC (Bld) 19.0 % Critically low 20.5-60.0 [facility] Comment on above: Performed By: #### D ATCBC #### [facility] [address] [place] [address] Dr. Power Covarrubias MCH (RBC) [Entitic mass] 30.9 pg Normal 25.9-34.0 [facility] Comment on above: Performed By: #### D ATCBC #### [facility] [address] [place] [address] Dr. Power Covarrubias MCHC (RBC) [Mass/Vol] 32.8 g/dL Normal 29.9-35.2 [facility] Comment on above: Performed By: #### D ATCBC #### [facility] [address] [place] [address] Dr. Power Covarrubias MCV (RBC) [Entitic vol] 94.3 fL Critically high 80.0-94.0 [facility] Comment on above: Performed By: #### D ATCBC #### [facility] [address] [place] [address] Dr. Power Covarrubias MONO # 0.5 103/ul Normal 0.3-0.8 [facility] Comment on above: Performed By: #### D ATCBC #### [facility] [address] [place] [address] Dr. Power Covarrubias Monocytes/100 WBC (Bld) 9.4 % Normal 1.7-12.0 [facility] Comment on above: Performed By: #### D ATCBC #### [facility] [address] [address] [address] Power Covarrubias NEUT # 3.4 103/ul Normal 1.4-6.5 [facility] Comment on above: Performed By: #### D ATCBC #### [facility] [address] [address] [address] Power Covarrubias Neutrophils/100 WBC (Bld) 66.7 % Normal 43.0-75.0 [facility] Comment on above: Performed By: #### D ATCBC #### [facility] [address] [address] [address] Power Covarrubias Platelet mean volume (Bld) [Entitic vol] 9.9 fL Normal 9.5-13.5 [facility] Comment on above: Performed By: #### D ATCBC #### [facility] [address] [address] [address] Power Covarrubias PLT 205 103/ul Normal 150-450 [facility] Comment on above: Performed By: #### D ATCBC #### [facility] [address] [address] [address] Power Covarrubias RBC 4.01 106/ul Critically low 4.70-6.10 [facility] Comment on above: Performed By: #### D ATCBC #### [facility] [address] [address] [address] Power Covarrubias WBC 5.1 103/ul Normal 4.0-11.0 [facility] Comment on above: Performed By: #### D ATCBC #### [facility] [address] [address] [address] Power Covarrubias BRE- BMP WITH LIPIDon 2021 Anion gap [Moles/Vol] 9.5 mmol/L Normal [facility] Comment on above: Performed By: #### D ATLIPI, DATPSA, DATBMP #### [facility] [address] [address] [address] Power Covarrubias Calcium [Mass/Vol] 9.0 mg/dL Normal 8.5-10.1 [facility] Comment on above: Performed By: #### D ATLIPI, DATPSA, DATBMP #### [facility] [address] [address] [address] Power Covarrubias Chloride [Moles/Vol] 108 mmol/L Critically high 98-107 [facility] Comment on above: Performed By: #### D ATLIPI, DATPSA, DATBMP #### [facility] [address] [address] [address] Power Covarrubias Cholesterol [Mass/Vol] 114 mg/dL Normal <=200 [facility] Comment on above: Performed By: #### D ATLIPI, DATPSA, DATBMP #### [facility] [address] [place] [address] Dr. Power Covarrubias Cholesterol in HDL [Mass/Vol] 49 mg/dL Normal 40-60 [facility] Comment on above: Performed By: #### D ATLIPI, DATPSA, DATBMP #### [facility] [address] [place] [address] Dr. Power Covarrubias Cholesterol in LDL [Mass/Vol] 50.4 mg/dL Normal [facility] Comment on above: Performed By: #### D ATLIPI, DATPSA, DATBMP #### [facility] [address] [place] [address] Dr. Power Covarrubias CO2 [Moles/Vol] 28.3 mmol/L Normal 21.0-32.0 [facility] Comment on above: Performed By: #### D ATLIPI, DATPSA, DATBMP #### [facility] [address] [place] [address] Dr. Power Covarrubias Creatinine [Mass/Vol] 0.88 mg/dL Normal 0.70-1.30 [facility] Comment on above: Performed By: #### D ATLIPI, DATPSA, DATBMP #### [facility] [address] [place] [address] Dr. Power Covarrubias EGFR-AF DJIBOUTIAN >60 Normal >=60 [facility] Comment on above: Performed By: #### D ATLIPI, DATPSA, DATBMP #### [facility] [address] [address] [address] Power Covarrubias EGFR-NON AF DJIBOUTIAN >60 Normal >=60 [facility] Comment on above: Performed By: #### D ATLIPI, DATPSA, DATBMP #### [facility] [address] [address] [address] Power Covarrubias Glucose [Mass/Vol] 107 mg/dL Critically high 74-106 [facility] Comment on above: Performed By: #### D ATLIPI, DATPSA, DATBMP #### [facility] [address] [address] [address] Power Covarrubias HDL NORMAL > or = 60 mg/dl - LO W CARDIOVASCULAR RISK <40 mg/dl - HIGH CARDIOVASCULAR RISK Normal [facility] Comment on above: Performed By: #### D ATLIPI, DATPSA, DATBMP #### [facility] [address] [address] [address] Power Covarrubias LDL CALC NORMAL SEE BELOW Normal [facility] Comment on above: Result Comment: <100 mg/dl OPTIMAL 100 - 129 mg/dl NEAR OR ABOVE OPTIMAL 130 - 159 mg/dl BORDERLINE HIGH 160 - 189 mg/dl HIGH >190 mg/dl VERY HIGH Performed By: #### D ATLIPI, DATPSA, DATBMP #### [facility] [address] [address] [address] Power Covarrubias Potassium [Moles/Vol] 3.8 mmol/L Normal 3.5-5.1 [facility] Comment on above: Performed By: #### D ATLIPI, DATPSA, DATBMP #### [facility] [address] [address] [address] Power Covarrubias Sodium [Moles/Vol] 142 mmol/L Normal 136-145 [facility] Comment on above: Performed By: #### D ATLIPI, DATPSA, DATBMP #### [facility] [address] [address] [address] Power Covarrubias Triglyceride [Mass/Vol] 73 mg/dL Normal <=150 [facility] Comment on above: Performed By: #### D ATLIPI, DATPSA, DATBMP #### [facility] [address] [address] [address] Power Covarrubias Urea nitrogen [Mass/Vol] 12.0 mg/dL Normal 7.0-18.0 [facility] Comment on above: Performed By: #### D ATLIPI, DATPSA, DATBMP #### [facility] [address] [address] [address] Power Covarrubias Urea nitrogen/Creatinine [Mass ratio] 13.6 mg/mg Normal [facility] Comment on above: Performed By: #### D ATLIPI, DATPSA, DATBMP #### [facility] [address] [address] [address] Power Covarrubias VLDL CALC 14.6 mg/dL Normal [facility] Comment on above: Performed By: #### D ATLIPI, DATPSA, DATBMP #### [facility] [address] [address] [address] Power Covarrubias Cardiovascular Lab Reporton 07-03-2020 Cardiovascular Lab Report [facility] Patient Name: Oscar Cox [facility] MR #: [id number] Physician: Shiloh Hester Department of M.D. Medicine Service Date: 07/03/2020 Division of Birthdate: 1945 Cardiology Room #: Adult Cardiovascular Services [address] [place] [address] Cardiovascular Laboratory Report FINAL IMPRESSIONS: 1. Cklu-vh-gztottkz 3-vessel coronary artery disease. 2. Oujs-ij-wirjagvw left main coronary artery disease that appears [...] Follow up with Dr. Hester in the [facility] in the next 1 to 2 [...] to access the left radial artery. A 6-Latvian glide sheath was inserted without difficulty. Resistance [...] Hester M.D. Date Trans: 07/03/2020 02:42 P/anibal [id number] cc: Neo Gould M.D. [address], [facility] [place] [address] [facility] Vital Signs Date Time Vital Sign Value Performing Clinician Luis Fernandoi shantell 03-28-2023 14:23-0400 Blood Pressure Location Zhagn DENISE [facility] 03-28-2023 14:23-0400 Diastolic blood pressure 60 mm[Hg] Zhang DENISE [facility] 03-28-2023 14:23-0400 Heart rate 60 /min Zhang DENISE [facility] 03-28-2023 14:23-0400 Respiratory rate 16 /min Zhang DENISE [facility] 03-28-2023 14:23-0400 Systolic blood pressure 116 mm[Hg] [facility] Encounter Date Encounter Type Care Provider Facility Start: 04-02-2024 End: 04-02-2024 ambulatory TINY TRAVIS Not Available Start: 03-19-2024 End: 03-19-2024 ambulatory Zhang DENISE Facility:[facility] Start: 03-05-2024 End: 03-05-2024 ambulatory FELICIA TAPIA [facility] Start: 02-19-2024 End: 02-19-2024 ambulatory [facility] Start: 12-13-2023 End: 12-13-2023 ambulatory [facility] Start: 11-27-2023 End: 11-27-2023 [facility] Start: 09-13-2023 ambulatory Ghislaine Morales Facility:[facility] [place] Start: 06-15-2023 ambulatory Zhang DENISE [facility] Start: 06-01-2023 End: [facility]: 05-09-[facility] ambulatory Zhang DENISE Facility :[facility] [place] Start: 04-26-2023 End: 04-27-2023 ambulatory Zhang DENISE Facility:[id number] Start: 03-28-2023 End: 03-29-2023 ambulatory Zhang [...] By: #### D ATLIPI, DATPSA, DATBMP #### [facility] [address] [place], [place] [address] Dr. Power Covarrubias Start: 08-31-2022 PSA screening PEBBLES B [facility] Comment on above: Performed By: #### D ATLIPI, DATPSA, DATBMP #### [facility] [address] [place], [place] [address] Dr. Power Covarrubias Start: 06-29-2022 PSA screening PEBBLES B OES Comment on above: Performed By: #### P SASC #### [facility] [id number] Power Covarrubias Start: 10-04-2017 Colonoscopy Zhang NG Excision of lumbar intervertebral disc Zhang HOWIE Comment on above: L5 Repair of hip Zhang DENISE Immunizations Immunization Date Immunization Notes Care Provider Fa cili 04-29-2021 SARS-CoV-2 (COVID-19 ) mRNA BNT-162b2 vax Zhang NILL [facility] 04-09-2021 SARS-CoV-2 (COVID-19 ) mRNA BNT-162b2 vax Zhang NILL [facility] Payers Date Payer Category Payer Self-pay 1958 Unknown [id number] 1945 Unknown [id number] 2.16.84 [id number] 1945 Unknown [id number] 2.16.84 [id number] 1945 Unknown [id number] 2.16.8 [id number] 1945 Unknown [id number] 2.16.8 [id number] 1945 Unknown [id number] 2.16.8 [id number] 1945 Unknown [id number] 2.16.8 [id number] 1945 Unknown [id number] 2.16.8 [id number] 1945 Unknown [id number] 2.16.8 [id number] 1945 Unknown [id number] 2.16.84 [id number] 1945 Unknown [id number] 2.16.84 [id number] Unknown [id number] 2.16.84 [id number] Unknown [id number] 2.16.84 [id number] Unknown [id number] 2.16.84 [id number] Social History Date Type Detail Facility Start: 03-28-2023 Tobacco smoking status Never s moked tobacco (finding) [facility] Tobacco smoking status Never [facility] Sex Assigned At Male [facility] Functional Status Date Assessment Result Facility 03-28-2023 Functional Status N/A [facility] Progress note 02-19-2024 Note Date & Type Note Facility 02-19-2024 Note [facility] Card[facility] Clinic Note Chief Complaint: Patient here for follow up [facility] for elevated troponin and bradycardia. He [...] 07/03/2020 Cardiovascular Laboratory Report FINAL IMPRESSIONS: 1. Bwwn-nd-ayrskusv 3-vessel coronary artery disease. 2. Kyuy-bx-pokpmwtu left main coronary artery disease that appears unchanged from prior angiography. 3. Normal global left ventricular (more content not included)... [facility] Progress note 12-13-2023 Note Date & Type Note Facility 12-13-2023 Note [facility] Cardiology Clinic Note Chief Complaint: [...] 07/03/2020 Cardiovascular Laboratory Report FINAL IMPRESSIONS: 1. Epch-gb-lbukpxar 3-vessel coronary artery disease. 2. Rxmm-mc-zvjhizgn left main coronary artery disease that appears [...] sever (more content not included)... [facility] Progress note 11-27-2023 Note Date & Type Note Facility 11-27-2023 Note [facility] Subjective Oscar Cox is a 78 [...] Cognitive communication deficit Atherosclerotic heart disease of belk[place]ski coronary artery without angina pectoris Diarrhea Hypokalemia [...] discuss left atrial appendage closure. His primary academic support assistant is Dr Shiloh Hester. He has history [...] visit (more content not included)... [facility] Progress note 06-01-2023 Note Date & [...] month ago He was admitted 04/28-05/02 at [facility] following the last fall and has [...] ho (more content not included)... [facility] Clinical Note 03-28-2023 Note Date & [...] consent obtained. 2. 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) hold Eliquis [...] SARS-CoV-2 (COVID-19) mRNA BNT-162b2 vax 04/09/2021 Recorded [facility] Comment on above: Result Comment: Elec tronically Signed By: HOWIE LOPEZ, Zhang Yan\Date and Time Signed: 03/28/23 20:17 EDT Evaluation + Plan note Note Date & Type Note Facility Evaluation + Plan note No data available for this section [facility] Discharge instructions Note Date & Type Note Facility Hospital Discharge instructions No data available for this section [facility] Progress note Note Date & Type Note Facility Progress note No data available for this section [facility] Summary Purpose Family History No Family History [...] and content) DATE CREATED AUTHOR 07/07/2020 [facility] DATE CREATED AUTHOR AUTHOR'S ORGANIZ ATION 03/02/[address] [facility] DATE CREATED AUTHOR AUTHOR'S ORGANIZ ATION 03/08/2024 [facility] DATE CREATED AUTHOR AUTHOR'S ORGANIZ ATION 03/12/2024 [facility] DATE CREATED AUTHOR AUTHOR'S ORGANIZ ATION 04/04/2024 [facility] EP[facility] DATE CREATED AUTHOR AUTHOR'S ORGANIZ ATION 04/09/2024 [facility] Patient Care team informatio n (unrecognized section and content) Personnel Name: Neo Gould MD Address: Address: [address] [place], [place] [address] FOR RECORDS PERTAINING TO PATIENTS WHO ARE [...] BE BASED ON THE PRIMARY CLINICAL RECORDS. [facility] provides no warranty or guarantee of the accuracy or completeness of information in this document.
--- NOTE | 2024-07-26 15:56 | PC.NURSE ---
pt to XR at this time via wheelchair with [employer].
--- NOTE | 2024-07-26 16:39 | PC.NURSE ---
Dr. Kline at bedside to discuss disposition with pt. pt denies further questions for Dr. Kline at this time.
--- NOTE | 2024-07-26 16:54 | ED.GENADUL1 ---
HPI HPI - General Adult General Chief complaint: Extremity Injury, Upper Stated complaint: Upper Extremity Pain Time Seen by Provider: 07/26/24 15:30 Source: patient Mode of arrival: Wheelchair History of Present Illness HPI narrative: 79-year-old male to the emergency department chief complaint of discomfort in his right shoulder. Patient reports he has chronic pain in his right shoulder. He reports that he rolled over in bed onto his right shoulder today and felt a pop. He has had continuous pain since then. He denies any numbness weakness or tingling. He denies any chest pain or shortness of breath. He is otherwise at his baseline health. Related Data Home Medications ?Medication ?Instructions ?Recorded ?Confirmed furosemide 40 mg tablet 40 mg PO Q12H 04/12/23 07/16/24 apixaban 5 mg tablet (Eliquis) 5 mg PO Q12H 01/20/24 07/16/24 atorvastatin 80 mg tablet 80 mg PO DAILY 04/02/24 07/16/24 carvedilol 12.5 mg tablet 6.25 mg PO Q12H 04/02/24 07/16/24 multivitamin 1 tab PO DAILY 04/02/24 07/16/24 Previous Rx's ?Medication ?Instructions ?Recorded acetaminophen 500 mg tablet 1,000 mg (2 x 500 mg) PO Q6H PRN 05/02/23 (Tylenol Extra Strength) Pain Scale 1-3 #120 tabs hydralazine 50 mg tablet 50 mg PO BID #60 tabs 02/16/24 ropinirole 1 mg tablet 1 mg PO QHS #30 tabs 02/16/24 methylprednisolone 4 mg tablets in 4 mg PO DAILY #21 ea 07/26/24 a dose pack (Medrol (Redd)) Allergies Allergy/AdvReac Type Severity Reaction Status Date / Time No Known Drug Allergies Allergy Verified 07/16/24 09:24 Opioid HPI Opioid Management Most Recent Opioid Data: Last Pain Scale 8 07/26/24 15:53 07/26/24 Last Pain Intensity 4 02/15/24 10:37 02/15/24 Last ORT Total Score 0 02/14/24 19:13 02/14/24 Last ORT Risk Category Low Risk 02/14/24 19:13 02/14/24 Review of Systems ROS Status of ROS 10 or more systems reviewed and unremarkable except as noted in history and below [facility] Medical History (Updated 07/26/24 @ 16:38 by Jonnathan Kline MD) Fall ?W19.XXXA - Unspecified fall, initial encounter (ICD-10) Weakness ?R53.1 - Weakness (ICD-10) Inability to walk ?R26.2 - Difficulty in walking, not elsewhere classified (ICD-10) Near syncope ?R55 - Syncope and collapse (ICD-10) Left leg weakness ?R29.898 - Other symptoms and signs involving the musculoskeletal system (ICD-10) Leg pain, left ?M79.605 - Pain in left leg (ICD-10) Frequent falls ?R29.6 - Repeated falls (ICD-10) Bradycardia with 31-40 beats per minute ?R00.1 - Bradycardia, unspecified (ICD-10) Hypokalemia ?E87.6 - Hypokalemia (ICD-10) PVC (premature ventricular contraction) ?I49.3 - Ventricular premature depolarization (ICD-10) Lower extremity edema ?R60.0 - Localized edema (ICD-10) Obesity ?E66.9 - Obesity, unspecified (ICD-10) Hypertension ?I10 - Essential (primary) hypertension (ICD-10) Prostate cancer ?C61 - Malignant neoplasm of prostate (ICD-10) Colon polyps ?K63.5 - Polyp of colon (ICD-10) Heart failure, diastolic ?I50.30 - Unspecified diastolic (congestive) heart failure (ICD-10) Coronary arteriosclerosis ?I25.10 - Atherosclerotic heart disease of [place] coronary artery without angina pectoris (ICD-10) Chronic anticoagulation ?Z79.01 - senior living (current) use of anticoagulants (ICD-10) Cervical disc disease ?M50.90 - Cervical disc disorder, unspecified, unspecified cervical region (ICD-10) Atrial fibrillation ?I48.91 - Unspecified atrial fibrillation (ICD-10) Surgical History History of tonsillectomy and adenoidectomy ?Z90.89 - Acquired absence of other organs (ICD-10) H/O lumbar discectomy ?Z98.890 - Other specified postprocedural states (ICD-10) H/O total hip arthroplasty ?Z96.649 - Presence of unspecified artificial hip joint (ICD-10) H/O colonoscopy with polypectomy ?Z98.890 - Other specified postprocedural states (ICD-10) ?Z86.010 - Personal history of colonic polyps (ICD-10) Family History Other Family history not known due to adoption Social History Within the past year, how often did you have a drink containing alcohol: never Score interpretation: A score less than 4 is consistent with normal alcohol consumption. 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 Known occupational exposures/hazards: No Highest level of school completed/degree received: high school graduate Do you want help with school or training: No Are you now , , , , never or living with a partner: In a typical week, how many times do you talk on the telephone with family, friends, or neighbors: 3 or more times per week How often do you get together with friends or relatives: once per week How often do you attend religious or restorationism services: never Do you belong to any clubs or organizations such as religious groups unions, [employer] or athletic groups, or school groups: no Total score: 1 Score interpretation: A score of less than or equal to 1 indicates the most socially isolated. Little interest or pleasure in doing things: not at all Feeling down, depressed, or hopeless: not at all Feel stressed/tense/nervous/anxious/difficulty sleeping: not at all Due to disability, difficulty making decisions: No Do you think of yourself as: straight/heterosexual Gender Identity: male Exam Narrative Exam Narrative: VITALS: I have reviewed the triage vital signs. GENERAL: Elderly male in no distress NEURO: Alert and oriented. Moves all extremities. Face is symmetric and expressive. EYES: PERRL. No scleral icterus or conjunctival injection. No discharge. HENT: Normocephalic, atraumatic. Hearing is grossly intact. Nares grossly patent and without discharge. Mucous membranes moist. NECK: No JVD. Patient moves neck without restriction. CARDIO: Rhythm regular. Normal rate. No murmur, rub, or gallop. Pulses equal bilaterally in the upper and lower extremity. No lower extremity edema. PULM: Lungs clear to auscultation in all ge. No wheezes, rales, or rhonchi. No conversational dyspnea. No splinting, stridor, or accessory muscle use. Right upper extremity: Radial is intact. Sensation is intact over the hand and forearm. Upkeep Mechanic strength is intact. Range of motion of the wrist, elbow and shoulder are intact however it is painful with range of motion of the shoulder. He has some mild joint line tenderness that is nonspecific. SKIN: Warm and dry. Normal turgor. No rash or lesions appreciated. PSYCH: Mood, affect, and interaction is appropriate to the setting. Constitutional Vital Signs, click to edit/add: Last Vital Signs Temp 98.1 F 07/26/24 15:24 Pulse 52 L 07/26/24 15:24 Resp 18 07/26/24 15:24 BP 121/50 07/26/24 15:24 Pulse Ox 97 07/26/24 15:24 O2 Del Method Room Air 07/26/24 15:24 Course Vital Signs Vital signs: Vital Signs Temperature 98.1 F 07/26/24 15:24 Pulse Rate 52 L 07/26/24 15:24 Respiratory Rate 18 07/26/24 15:24 Blood Pressure 121/50 07/26/24 15:24 Pulse Oximetry 97 07/26/24 15:24 Oxygen Delivery Method Room Air 07/26/24 15:24 Temperature 98.1 F 07/26/24 15:24 Pulse Rate 52 L 07/26/24 15:24 Respiratory Rate 18 07/26/24 15:24 Blood Pressure 121/50 07/26/24 15:24 Pulse Oximetry 97 07/26/24 15:24 Oxygen Delivery Method Room Air 07/26/24 15:24 Medical Decision Making [facility] Narrative Medical decision making narrative: Well-appearing 79-year-old male with chronic arthritis pain to the emergency department chief complaint of pain in his right shoulder after rolling over in bed. Vital stable, the patient is afebrile. Right upper extremity is neurovascularly intact. There is no deformity. X-rays ordered and shows severe arthritic changes. Medrol Dosepak. Follow-up with his orthopedic surgeon or primary care physician. Patient was discharged home. Discharge Plan Discharge Chief Complaint: Extremity Injury, Upper Clinical Impression: Right shoulder pain Patient Disposition: Home, Self-Care Time of Disposition Decision: 16:38 Condition: Good Mode of Transportation: Private Vehicle Prescriptions / Home Meds: New methylprednisolone [Medrol (Redd)] 4 mg tablets,dose pack 4 mg PO DAILY Qty: 21 0RF Rx Instructions: TAKE PER DOSEPAK INSTRUCTIONS No Action furosemide 40 mg tablet 40 mg PO Q12H acetaminophen [Tylenol Extra Strength] 500 mg Tablet 1,000 mg PO Q6H PRN (Reason: Pain Scale 1-3) Qty: 120 0RF Eliquis 5 mg tablet 5 mg PO Q12H ropinirole 1 mg Tablet 1 mg PO QHS Qty: 30 11RF hydralazine 50 mg Tablet 50 mg PO BID Qty: 60 11RF carvedilol 12.5 mg tablet 6.25 mg PO Q12H multivitamin Tablet 1 tab PO DAILY atorvastatin 80 mg tablet 80 mg PO DAILY Print Language: Jamaican Instructions: Shoulder Pain (ED) Additional Instructions: Call the office of your primary care doctor to arrange for follow-up within the above-stated timeframe. Your ED visit was focused on your acute issue and does not replace primary care. You should review your labs, imaging, and diagnoses from this ED visit with your primary care physician. There may be non-emergent/ incidental findings that need further evaluation. You should review your vital signs including blood pressure with your PCP. If you were prescribed medications you should discuss possible side-effects and drug interactions with your pharmacist. Call 911 or go to the nearest Emergency Department if you develop any new or worsening symptoms. Follow-up with your orthopedic surgeon in the next week Referrals: Javier Gould MD [Primary Care Provider] - 1 week
== END 2024-07-26 16:55 | disposition home or self-care (01) ==
PROVIDERS: Emergency Provider Student in an Organized Health Care Education/Training Program; PCP Family Medicine
DX: M25.511 Pain in right shoulder (principal)
CPT/HCPCS: 73030; 99283

== ENCOUNTER 2024-08-02 14:04 | Outpatient (OUT) | payer MEDICARE, SELFPAY ==
--- NOTE | 2024-08-02 14:00 | CA_ITS ---
Patient Name: JACKSON IQBAL MR#: [id number] : 1945 Exam Date: 08/02/2024 Ordering Doctor: DR Javier Gould . ECHOCARDIOGRAM REPORT PROCEDURE: CA ECHO LIMITED INDICATIONS: Bradycardia, atrial fibrillation COMPARISON: None. DESCRIPTION: Limited ECHOCARDIOGRAM Real-time transthoracic echocardiography with 2D and M-mode performed. QUALITY: Technically difficult due to patient's condition. Limited echocardiogram per physician order. LEFT VENTRICLE: Normal chamber size. Mild to moderate concentric left ventricular hypertrophy. Normal LV systolic function without wall motion abnormalities, EF 60% LV EF: DIASTOLIC: ATRIAL SEPTUM: LEFT ATRIUM: Moderate dilatation. RIGHT ATRIUM: Normal chamber size. RIGHT VENTRICLE: TRICUSPID VALVE: Normal mobility and thickness. MITRAL VALVE: Mildly thickened with normal mobility. Mild mitral annular calcification. AORTIC VALVE: Normal trileaflet appearance. No visible sclerosis. Normal leaflet mobility. AORTIC ROOT: Normal diameter and appearance. PULMONIC VALVE: Normal thickness and mobility. PERICARDIUM: No evidence of pericardial effusion. IVC: PLEURA: CONCLUSION: Mild to moderate concentric left ventricle hypertrophy Normal LV systolic function, no wall motion abnormalities, EF 60%. Moderate left atrial dilatation Mild mitral annulus calcification Adult Echocardiography Procedure Report Left Ventricle LVEDD (3.7 - 5.6 cm): 4.27 cm LVESD (2.2 - 4.0 cm): 2.80 cm LVIVS thickness (0.6 - 1.2 cm): 1.31 cm LVPW thickness (0.5 - 1.0 cm): 1.46 cm e': E - e': LVOT Max Gradient: LVOT Area (cm2): Peak Velocity (LVOT): Mean Velocity (LVOT): LVOT Diameter 1.80 cm Left Ventricular Ejection Fraction: Left Atrium LA Volume Index (2D A2C): 45.43 ml/m2 Left Atrium Systolic Dimension: 5.77 cm Mitral Valve MV E to A Ratio: MV Max Gradient: MV Mean Gradient: Mitral Valve A-Wave Peak Velocity: Mitral Valve E-Wave Peak Velocity: Cardiovascular Orifice Area: Right Ventricle RV Internal Diastolic Dimension: Aorta AO Root Diam: 3.81 cm Ascending Ao Diam: Aortic Valve AoV Area ([place]): AoV Area (VTI): Deceleration [place]: Pressure Half-Time: Peak Velocity(Antegrade Flow): Peak Gradient(Antegrade Flow): Mean Velocity(Antegrade Flow): Mean Gradient(Antegrade Flow): Velocity Time Integral: Tricuspid Valve Peak Velocity (Regurgitant Flow): Peak Velocity: Pulmonic Valve Mean Gradient: Mean Velocity: Peak Velocity: Peak Gradient: Right Atrium Right Atrium Systolic Pressure: Dictated by: Kaitlin Samuels MD on 08/05/2024 at 15:32 Approved by: Kaitlin Samuels MD on 08/05/2024 at 16:33
--- OUTSIDE RECORDS SUMMARY | 2024-08-02 14:07 | XMS_ITS | CCD ---
Author Organization [facility] Care Team Providers Care Pickle Maker Name Role Phone PEBBLES WOODARD Primary Care Unavailable DEANDRE Hinson, DR LARSON Admitting Unavailable HOY ., DR LARSON Consulting Unavailable HOY ., DR LARSON Attending Unavailable REQUEST, NONE LISTED Admitting Unavaila ble REQUEST, DR ALELN LISTED Attending Unavaila ble DEANDRE ., DR [...] Medication Allergies] Propensity to adverse reactions (disorder) [facility] Repository Medications Current Medications Medication Drug [...] Coronary arteriosclerosis; 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: [Atherosclerotic heart disease of [place] coronary artery without angina pectoris] Onset: 12-13-2023 03-15-2023 Chronic Disorders of lipid metabolism (4 sources) Hyperlipidemia, unspecified; 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: [HYPERLIPIDEMIA UNSPECIFIED] Onset: 06-29-2022 Chronic Essential hypertension (3 sources) Hypertensive disorder; 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: [Essential (primary) hypertension] Onset: 05-11-2023 03-15-2023 Chronic Osteoarthritis (4 sources) Primary generalized (osteo)arthritis; 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: [PRIMARY GENERALIZED OSTEOARTHRITIS] Onset: 12-10-2022 Chronic Other aftercare (1 source) Other custodial (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 therapy; 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: [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 Normal [facility] 36on 03-07-2024 36 PT INFIRMED AND ORDE R SENT Normal [facility] Office Visiton 02-19-2024 Follow-up visit [id number] Oscar Cox 1945 M Date Provider Department Center 02/19/2024 SHILOH SANTACRUZ Family History Family history unknown: Yes Level of Service:63431 MD OFFICE/OUTPATIENT ESTABLISHED LOW MDM 20 MIN Normal [facility] Office Visiton 12-13-2023 Follow-up visit [id number] Oscar Cox 1945 Date Provider Department Center 12/13/2023 271-DENISHUNGUANAKITOJaclynSHIOLH ABILIO [facility] Family History Family history unknown: Yes Level of Service:20772 MD OFFICE/OUTPATIENT ESTABLISHED MOD MDM 30 MIN [facility] Office Visiton 11-27-2023 Follow-up visit [id number] Oscar Cox 1945 [facility] Provider Department Center 11/27/2023 367-JONATHAN HARRISON ABILIO [facility] Family History Family history unknown: Yes Level of Service:14445 MD OFFICE/OUTPATIENT ESTABLISHED MOD MDM 30 MIN Normal [facility] Correction Recordson 07-04 Correction Records [id number] CD:127 [facility] 37on 06-01-2023 37 -Reduce Lisinopril t o 10 mg once a day -Will get an ultrasound of your heart -Continue Lasix 40 mg twice a day -Follow-up with Dr. Harrison to discuss watchman -Start Eliquis 2.5 mg twice a day and monitor for more bleeding [facility] Office Visiton 06-01-2023 Follow-up visit [id number] Oscar Cox 1945 [facility] Provider Department Center 06/01/2023 [id number]-UUQPPLIVRANATOLIY NOVAK ABILIO [facility]avian [facility] Family History Family history unknown: Yes Level of Service:97337 MD OFFICE/OUTPATIENT ESTABLISHED MOD MDM 30-39 MIN Reason for Visit and Comments: Follow-up [215242] - Concerns due to increased swelling bilateral legs and also having blood in urine - Eliquis is being held at the moment Normal [facility] Orders Onlyon 06-01-2023 Orders Only [id number] Oscar Cox 1945 [facility] Provider Department Center 06/01/2023 Erika-ELVIN RIVAS ABILIO [facility] Family History Family history unknown: Yes [facility] Reminderson 05-10-2023 Reminders - From: Pennie Bose LPN To: GSN - Clinical; Sent: 05/10/2023 10:13:27 EDT Show up: 03/27/2028 07:00:00 EDT Subject: colonoscopy recall Due Date/Time: 04/26/2028 07:00:00 EDT Reminder/Recall Patient due for surveillance colonoscopy 04/26/2028. Normal [facility] Pathology Noteon 05-03-2023 Pathology Note [id number] 0CD:127 Normal [facility] Outside Colonoscopyon 2022 Outside Colonoscopy [id number]#1.0 0CD:127 [facility] Pre-Certification Formon Pre-Certification Form [id number]. 00CD:127 [facility] Consent for Procedure/Surger yon 03-29-2023 Consent for Procedure/Surgery [id number]#1.0 0CD:127 [facility] Ambulatory Visit Summaryon 0 03-28-2023 Ambulatory [...] history of colonic polyps Premature beats Normal [facility] CBC AUTO DIFFon 03-01-2023 BASO # 0.0 103/ul Normal 0.0-0.1 [facility] Comment on above: Performed By: #### D ATCBC #### [facility] [address] [place] [address] Dr. Power Covarrubias Basophils/100 WBC (Bld) 0.7 % Normal 0.2-2.0 [facility] Comment on above: Performed By: #### D ATCBC #### [facility] [address] [address] [address] Power Covarrubias EO # 0.1 103/ul Normal 0.0-0.7 [facility] Comment on above: Performed By: #### D ATCBC #### [facility] [address] [place] [address] Dr. Power Covarrubias Eosinophils/100 WBC (Bld) 1.8 % Normal 0.9-7.0 [facility] Comment on above: Performed By: #### D ATCBC #### [facility] [address] [place] [address] Dr. Power Covarrubias Erythrocyte distribution width (RBC) [Ratio] 13.3 % Normal 11.0-15.0 [facility] Comment on above: Performed By: #### D ATCBC #### [facility] [address] [place] [address] Dr. Power Covarrubias Hematocrit (Bld) [Volume fraction] 40.7 % Critically low 42.0-54.0 [facility] Comment on above: Performed By: #### D ATCBC #### [facility] [address] [place] [address] Dr. Power Covarrubias Hemoglobin (Bld) [Mass/Vol] 12.9 g/dL Critically low 14.0-18.0 [facility] Comment on above: Performed By: #### D ATCBC #### [facility] [address] [place] [address] Dr. Power Covarrubias IG # 0.01 10e3/ul Normal 0.00-0.03 [facility] Comment on above: Performed By: #### D ATCBC #### [facility] [address] [place] [address] Dr. Power Covarrubias IG % 0.2 % Normal 0.0-0.5 [facility] Comment on above: Performed By: #### D ATCBC #### [facility] [address] [place] [address] Dr. Power Covarrubias LYMPH # 0.7 103/ul Critically low 1.2-3.8 [facility] Comment on above: Performed By: #### D ATCBC #### [facility] [address] [place] [address] Dr. Power Covarrubias Lymphocytes/100 WBC (Bld) 16.3 % Critically low 20.5-60.0 [facility] Comment on above: Performed By: #### D ATCBC #### [facility] [address] [place] [address] Dr. Power Covarrubias MCH (RBC) [Entitic mass] 29.6 pg Normal 25.9-34.0 [facility] Comment on above: Performed By: #### D ATCBC #### [facility] [address] [address] [address] Power Covarrubias MCHC (RBC) [Mass/Vol] 31.7 g/dL Normal 29.9-35.2 [facility] Comment on above: Performed By: #### D ATCBC #### [facility] [address] [place] [address] Dr. Power Covarrubias MCV (RBC) [Entitic vol] 93.3 fL Normal 80.0-94.0 [facility] Comment on above: Performed By: #### D ATCBC #### [facility] [address] [place] [address] Dr. Power Covarrubias MONO # 0.3 103/ul Normal 0.3-0.8 [facility] Comment on above: Performed By: #### D ATCBC #### [facility] [address] [place] [address] Dr. Power Covarrubias Monocytes/100 WBC (Bld) 7.5 % Normal 1.7-12.0 [facility] Comment on above: Performed By: #### D ATCBC #### [facility] [address] [place] [address] Dr. Power Covarrubias NEUT # 3.4 103/ul Normal 1.4-6.5 [facility] Comment on above: Performed By: #### D ATCBC #### [facility] [address] [place] [address] Dr. Power Covarrubias Neutrophils/100 WBC (Bld) 73.5 % Normal 43.0-75.0 [facility] Comment on above: Performed By: #### D ATCBC #### [facility] [address] [place] [address] Dr. Power Covarrubias Platelet mean volume (Bld) [Entitic vol] 9.9 fL Normal 9.5-13.5 [facility] Comment on above: Performed By: #### D ATCBC #### [facility] [address] [place] [address] Dr. Power Covarrubias PLT 198 103/ul Normal 150-450 [facility] Comment on above: Performed By: #### D ATCBC #### [facility] [address] [address] [address] Power Covarrubias RBC 4.36 106/ul Critically low 4.70-6.10 [facility] Comment on above: Performed By: #### D ATCBC #### [facility] [address] [address] [address] Power Covarrubias WBC 4.6 103/ul Normal 4.0-11.0 [facility] Comment on above: Performed By: #### D ATCBC #### [facility] [address] [address] [address] Power Covarrubias BRE - LIPID PROFILEon 2022 CHOL-HDL RATIO NORM SEE BELOW Normal [facility] Comment on above: Result Comment: 3.3 - 4.4 LOW RISK 4.4 - 7.1 AVERAGE RISK 7.1 - 11.0 MODERATE RISK >11.0 HIGH RISK Performed By: #### D ATLIPI, DATPSA, DATBMP #### [facility] [address] [place] [address] Dr. Power Covarrubias Cholesterol.total/Ch olesterol in HDL [Mass ratio] 2.2 {ratio} Normal [facility] Comment on above: Performed By: #### D ATLIPI, DATPSA, DATBMP #### [facility] [address] [place] [address] Dr. Power Covarrubias BRE- BMP WITH LIPIDon 2022 Anion gap [Moles/Vol] 12.8 mmol/L Normal [facility] Comment on above: Performed By: #### D ATLIPI, DATPSA, DATBMP #### [facility] [address] [address] [address] Power Covarrubias Calcium [Mass/Vol] 9.3 mg/dL Normal 8.5-10.1 [facility] Comment on above: Performed By: #### D ATLIPI, DATPSA, DATBMP #### [facility] [address] [place] [address] Dr. Power Covarrubias Chloride [Moles/Vol] 107 mmol/L Normal 98-107 [facility] Comment on above: Performed By: #### D ATLIPI, DATPSA, DATBMP #### [facility] [address] [place] [address] Dr. Power Covarrubias Cholesterol [Mass/Vol] 123 mg/dL Normal <=200 [facility] Comment on above: Performed By: #### D ATLIPI, DATPSA, DATBMP #### [facility] [address] [address] [address] Power Covarrubias Cholesterol in HDL [Mass/Vol] 56 mg/dL Normal 40-60 [facility] Comment on above: Performed By: #### D ATLIPI, DATPSA, DATBMP #### [facility] [address] [place] [address] Dr. Power Covarrubias Cholesterol in LDL [Mass/Vol] 52.0 mg/dL Normal [facility] Comment on above: Performed By: #### D ATLIPI, DATPSA, DATBMP #### [facility] [address] [place] [address] Dr. Power Covarrubias CO2 [Moles/Vol] 28.7 mmol/L Normal 21.0-32.0 [facility] Comment on above: Performed By: #### D ATLIPI, DATPSA, DATBMP #### [facility] [address] [place] [address] Dr. Power Covarrubias Creatinine [Mass/Vol] 0.93 mg/dL Normal 0.70-1.30 [facility] Comment on above: Performed By: #### D ATLIPI, DATPSA, DATBMP #### [facility] [address] [place] [address] Dr. Power Covarrubias EGFR-AF MOROCCAN >60 Normal >=60 [facility] Comment on above: Performed By: #### D ATLIPI, DATPSA, DATBMP #### [facility] [address] [place] [address] Dr. Power Covarrubias EGFR-NON AF MOROCCAN >60 Normal >=60 [facility] Comment on above: Performed By: #### D ATLIPI, DATPSA, DATBMP #### [facility] [address] [address] [address] Power Covarrubias Glucose [Mass/Vol] 97 mg/dL Normal 74-106 [facility] Comment on above: Performed By: #### D ATLIPI, DATPSA, DATBMP #### [facility] [address] [address] [address] Power Covarrubias HDL NORMAL > or = 60 mg/dl - LO W CARDIOVASCULAR RISK <40 mg/dl - HIGH CARDIOVASCULAR RISK Normal [facility] Comment on above: Performed By: #### D ATLIPI, DATPSA, DATBMP #### [facility] [address] [address] [address] Power Covarrubias LDL CALC NORMAL SEE BELOW Normal [facility] Comment on above: Result Comment: <100 mg/dl OPTIMAL 100 - 129 mg/dl NEAR OR ABOVE OPTIMAL 130 - 159 mg/dl BORDERLINE HIGH 160 - 189 mg/dl HIGH >190 mg/dl VERY HIGH Performed By: #### D ATLIPI, DATPSA, DATBMP #### [facility] [address] [address] [address] Power Covarrubias Potassium [Moles/Vol] 3.5 mmol/L Normal 3.5-5.1 [facility] Comment on above: Performed By: #### D ATLIPI, DATPSA, DATBMP #### [facility] [address] [address] [address] Power Covarrubias Sodium [Moles/Vol] 145 mmol/L Normal 136-145 [facility] Comment on above: Performed By: #### D ATLIPI, DATPSA, DATBMP #### [facility] [address] [address] [address] Power Covarrubias Triglyceride [Mass/Vol] 75 mg/dL Normal <=150 [facility] Comment on above: Performed By: #### D ATLIPI, DATPSA, DATBMP #### [facility] [address] [address] [address] Power Covarrubias Urea nitrogen [Mass/Vol] 11.0 mg/dL Normal 7.0-18.0 [facility] Comment on above: Performed By: #### D ATLIPI, DATPSA, DATBMP #### [facility] [address] [place] [address] Dr. Power Covarrubias Urea nitrogen/Creatinine [Mass ratio] 11.8 mg/mg Normal [facility] Comment on above: Performed By: #### D ATLIPI, DATPSA, DATBMP #### [facility] [address] [place] [address] Dr. Power Covarrubias VLDL CALC 15.0 mg/dL Normal [facility] Comment on above: Performed By: #### D ATLIPI, DATPSA, DATBMP #### [facility] [address] [place] [address] Dr. Power Covarrubias GLYCOHEMOGLOBIN A1Con 2022 ADA RECOMMENDATION SEE BELOW Normal [facility] Comment on above: Result Comment: ADA RECOMMENDED LIMIT 4.0 - 6.0 ADA THERAPEUTIC TARGET < 7.0 ACTION SUGGESTED > 7.0 Performed By: #### D ATLIPI, DATPSA, DATBMP #### [facility] [address] [place] [address] Dr. Power Covarrubias Glucose [Mass/Vol] 105 mg/dL Normal [facility] Comment on above: Performed By: #### D ATLIPI, DATPSA, DATBMP #### [facility] [address] [place] [address] Dr. Power Covarrubias HbA1c (Bld) [Mass fraction] 5.3 % Normal 4.5-6.2 [facility] Comment on above: Performed By: #### D ATLIPI, DATPSA, DATBMP #### [facility] [address] [place] [address] Dr. Power Covarrubias CBC AUTO DIFFon 12-10-2022 BASO # 0.0 103/ul Normal 0.0-0.1 [facility] Comment on above: Performed By: #### D ATLIPI, DATPSA, DATBMP #### [facility] [address] [place] [address] Dr. Power Covarrubias Basophils/100 WBC (Bld) 0.4 % Normal 0.2-2.0 [facility] Comment on above: Performed By: #### D ATLIPI, DATPSA, DATBMP #### [facility] [address] [place] [address] Dr. Power Covarrubias EO # 0.2 103/ul Normal 0.0-0.7 [facility] Comment on above: Performed By: #### D ATLIPI, DATPSA, DATBMP #### [facility] [address] [place] [address] Dr. Power Covarrubias Eosinophils/100 WBC (Bld) 3.6 % Normal 0.9-7.0 [facility] Comment on above: Performed By: #### D ATLIPI, DATPSA, DATBMP #### [facility] [address] [place] [address] Dr. Power Covarrubias Erythrocyte distribution width (RBC) [Ratio] 13.5 % Normal 11.0-15.0 [facility] Comment on above: Performed By: #### D ATLIPI, DATPSA, DATBMP #### [facility] [address] [place] [address] Dr. Power Covarrubias Hematocrit (Bld) [Volume fraction] 37.5 % Critically low 42.0-54.0 [facility] Comment on above: Performed By: #### D ATLIPI, DATPSA, DATBMP #### [facility] [address] [place] [address] Dr. Power Covarrubias Hemoglobin (Bld) [Mass/Vol] 12.0 g/dL Critically low 14.0-18.0 [facility] Comment on above: Performed By: #### D ATLIPI, DATPSA, DATBMP #### [facility] [address] [place] [address] Dr. Power Covarrubias IG # 0.02 10e3/ul Normal 0.00-0.03 [facility] Comment on above: Performed By: #### D ATLIPI, DATPSA, DATBMP #### [facility] [address] [place] [address] Dr. Power Covarrubias IG % 0.4 % Normal 0.0-0.5 [facility] Comment on above: Performed By: #### D ATLIPI, DATPSA, DATBMP #### [facility] [address] [place] [address] Dr. Power Covarrubias LYMPH # 0.9 103/ul Critically low 1.2-3.8 [facility] Comment on above: Performed By: #### D ATLIPI, DATPSA, DATBMP #### [facility] [address] [place] [address] Dr. Power Covarrubias Lymphocytes/100 WBC (Bld) 17.7 % Critically low 20.5-60.0 [facility] Comment on above: Performed By: #### D ATLIPI, DATPSA, DATBMP #### [facility] [address] [place] [address] Dr. Power Covarrubias MANUAL DIFF REQ NO Normal [facility] Comment on above: Performed By: #### D ATLIPI, DATPSA, DATBMP #### [facility] [address] [place] [address] Dr. Power Covarrubias MCH (RBC) [Entitic mass] 29.7 pg Normal 25.9-34.0 [facility] Comment on above: Performed By: #### D ATLIPI, DATPSA, DATBMP #### [facility] [address] [place] [address] Dr. Power Covarrubias MCHC (RBC) [Mass/Vol] 32.0 g/dL Normal 29.9-35.2 [facility] Comment on above: Performed By: #### D ATLIPI, DATPSA, DATBMP #### [facility] [address] [place] [address] Dr. Power Covarrubias MCV (RBC) [Entitic vol] 92.8 fL Normal 80.0-94.0 [facility] Comment on above: Performed By: #### D ATLIPI, DATPSA, DATBMP #### [facility] [address] [place] [address] Dr. Power Covarrubias MONO # 0.6 103/ul Normal 0.3-0.8 [facility] Comment on above: Performed By: #### D ATLIPI, DATPSA, DATBMP #### [facility] [address] [place] [address] Dr. Power Covarrubias Monocytes/100 WBC (Bld) 11.1 % Normal 1.7-12.0 [facility] Comment on above: Performed By: #### D ATLIPI, DATPSA, DATBMP #### [facility] [address] [place] [address] Dr. Power Covarrubias NEUT # 3.6 103/ul Normal 1.4-6.5 [facility] Comment on above: Performed By: #### D ATLIPI, DATPSA, DATBMP #### [facility] [address] [place] [address] Dr. Power Covarrubias Neutrophils/100 WBC (Bld) 66.8 % Normal 43.0-75.0 [facility] Comment on above: Performed By: #### D ATLIPI, DATPSA, DATBMP #### [facility] [address] [place] [address] Dr. Power Covarrubias Platelet mean volume (Bld) [Entitic vol] 9.8 fL Normal 9.5-13.5 [facility] Comment on above: Performed By: #### D ATLIPI, DATPSA, DATBMP #### [facility] [address] [place] [address] Dr. Power Covarrubias PLT 199 103/ul Normal 150-450 [facility] Comment on above: Performed By: #### D ATLIPI, DATPSA, DATBMP #### [facility] [address] [place] [address] Dr. Power Covarrubias RBC 4.04 106/ul Critically low 4.70-6.10 [facility] Comment on above: Performed By: #### D ATLIPI, DATPSA, DATBMP #### [facility] [address] [place] [address] Dr. Power Covarrubias WBC 5.3 103/ul Normal 4.0-11.0 [facility] Comment on above: Performed By: #### D ATLMACK, DATPSA, DATBMP #### [facility] [address] [place] [address] Dr. Power Covarrubias PROF 14(COMP METB)on 023 Albumin [Mass/Vol] 3.3 g/dL Critically low 3.4-5.[address] [facility] Comment on above: Performed By: #### C MP #### [facility] [address] [place] [address] Dr. Power Covarrubias Albumin/Globulin [Mass ratio] 0.9 {ratio} Normal [facility] Comment on above: Performed By: #### C MP #### [facility] [address] [place] [address] Dr. Power Covarrubias ALP [Catalytic activity/Vol] 99 U/L Normal 46-116 [facility] Comment on above: Performed By: #### C MP #### [facility] [address] [place] [address] Dr. Power Covarrubias ALT [Catalytic activity/Vol] 17 U/L Normal 16-63 [facility] Comment on above: Performed By: #### C MP #### [facility] [address] [place] [address] Dr. Power Covarrubias Anion gap [Moles/Vol] 11.6 mmol/L Normal [facility] Comment on above: Performed By: #### C MP #### [facility] [address] [place] [address] Dr. Power Covarrubias AST [Catalytic activity/Vol] 15 U/L Normal 15-37 [facility] Comment on above: Performed By: #### C MP #### [facility] [address] [place] [address] Dr. Power Covarrubias Bilirubin [Mass/Vol] 0.6 mg/dL Normal 0.2-1.0 [facility] Comment on above: Performed By: #### C MP #### [facility] [address] [address] [address] Power Covarrubias Calcium [Mass/Vol] 9.4 mg/dL Normal 8.5-10.1 [facility] Comment on above: Performed By: #### C MP #### [facility] [address] [address] [address] Power Covarrubias Chloride [Moles/Vol] 107 mmol/L Normal 98-107 [facility] Comment on above: Performed By: #### C MP #### [facility] [address] [place] [address] Dr. Power Covarrubias CO2 [Moles/Vol] 29.2 mmol/L Normal 21.0-32.0 [facility] Comment on above: Performed By: #### C MP #### [facility] [address] [place] [address] Dr. Power Covarrubias Creatinine [Mass/Vol] 0.87 mg/dL Normal 0.70-1.30 [facility] Comment on above: Performed By: #### C MP #### [facility] [address] [place] [address] Dr. Power Covarrubias EGFR-AF MOROCCAN >60 Normal >=60 [facility] Comment on above: Performed By: #### C MP #### [facility] [address] [place] [address] Dr. Power Covarrubias EGFR-NON AF MOROCCAN >60 Normal >=60 [facility] Comment on above: Performed By: #### C MP #### [facility] [address] [address] Dr. Power Covarrubias Globulin (S) [Mass/Vol] 3.6 g/dL Normal [facility] Comment on above: Performed By: #### C MP #### [facility] [address] [place] [address] Dr. Power Covarrubias Glucose [Mass/Vol] 107 mg/dL Critically high 74-[address] [facility] Comment on above: Performed By: #### C MP #### [facility] [address] [place] [address] Dr. Power Covarrubias Potassium [Moles/Vol] 3.8 mmol/L Normal 3.5-5.1 [facility] Comment on above: Performed By: #### C MP #### [facility] [address] [place] [address] Dr. Power Covarrubias Protein [Mass/Vol] 6.9 g/dL Normal 6.4-8.2 [facility] Comment on above: Performed By: #### C MP #### [facility] [address] [place] [address] Dr. Power Covarrubias Sodium [Moles/Vol] 144 mmol/L Normal 136-145 [facility] Comment on above: Performed By: #### C MP #### [facility] [address] [place] [address] Dr. Power Covarrubias Urea nitrogen [Mass/Vol] 12.0 mg/dL Normal 7.0-18.0 [facility] Comment on above: Performed By: #### C MP #### [facility] [address] [place] [address] Dr. Power Covarrubias Urea nitrogen/Creatinine [Mass ratio] 13.8 mg/mg Normal [facility] Comment on above: Performed By: #### C MP #### [facility] [address] [place] [address] Dr. Power Covarrubias CBC AUTO DIFFon 08-31-2022 BASO # 0.0 103/ul Normal 0.0-0.1 [facility] Comment on above: Performed By: #### D ATLIPI DATPSA, DATBMP #### [facility] [address] [place] [address] Dr. Power Covarrubias Basophils/100 WBC (Bld) 0.7 % Normal 0.2-2.0 [facility] Comment on above: Performed By: #### D ATLIPI, DATPSA, DATBMP #### [facility] [address] [place] [address] Dr. Power Covarrubias EO # 0.2 103/ul Normal 0.0-0.7 [facility] Comment on above: Performed By: #### D ATLIPI, DATPSA, DATBMP #### [facility] [address] [place] [address] Dr. Power Covarrubias Eosinophils/100 WBC (Bld) 3.5 % Normal 0.9-7.0 [facility] Comment on above: Performed By: #### D ATLIPI, DATPSA, DATBMP #### [facility] [address] [place] [address] Dr. Power Covarrubias Erythrocyte distribution width (RBC) [Ratio] 13.2 % Normal 11.0-15.0 [facility] Comment on above: Performed By: #### D ATLIPI, DATPSA, DATBMP #### [facility] [address] [place] [address] Dr. Power Covarrubias Hematocrit (Bld) [Volume fraction] 39.3 % Critically low 42.0-54.0 [facility] Comment on above: Performed By: #### D ATLIPI, DATPSA, DATBMP #### [facility] [address] [place] [address] Dr. Power Covarrubias Hemoglobin (Bld) [Mass/Vol] 12.9 g/dL Critically low 14.0-18.0 [facility] Comment on above: Performed By: #### D ATLIPI, DATPSA, DATBMP #### [facility] [address] [place] [address] Dr. Power Covarrubias IG # 0.02 10e3/ul Normal 0.00-0.03 [facility] Comment on above: Performed By: #### D ATLIPI, DATPSA, DATBMP #### [facility] [address] [place] [address] Dr. Power Covarrubias IG % 0.4 % Normal 0.0-0.5 [facility] Comment on above: Performed By: #### D ATLIPI, DATPSA, DATBMP #### [facility] [address] [place] [address] Dr. Power Covarrubias LYMPH # 0.9 103/ul Critically low 1.2-3.8 [facility] Comment on above: Performed By: #### D ATLIPI, DATPSA, DATBMP #### [facility] [address] [place] [address] Dr. Power Covarrubias Lymphocytes/100 WBC (Bld) 16.4 % Critically low 20.5-60.0 [facility] Comment on above: Performed By: #### D ATLIPI, DATPSA, DATBMP #### [facility] [address] [place] [address] Dr. Power Covarrubias MCH (RBC) [Entitic mass] 30.7 pg Normal 25.9-34.0 [facility] Comment on above: Performed By: #### D ATLIPI, DATPSA, DATBMP #### [facility] [address] [place] [address] Dr. Power Covarrubias MCHC (RBC) [Mass/Vol] 32.8 g/dL Normal 29.9-35.2 [facility] Comment on above: Performed By: #### D ATLIPI, DATPSA, DATBMP #### [facility] [address] [place] [address] Dr. Power Covarrubias MCV (RBC) [Entitic vol] 93.6 fL Normal 80.0-94.0 [facility] Comment on above: Performed By: #### D ATLIPI, DATPSA, DATBMP #### [facility] [address] [place] [address] Dr. Power Covarrubias MONO # 0.5 103/ul Normal 0.3-0.8 [facility] Comment on above: Performed By: #### D ATLIPI, DATPSA, DATBMP #### [facility] [address] [place] [address] Dr. Power Covarrubias Monocytes/100 WBC (Bld) 9.0 % Normal 1.7-12.0 [facility] Comment on above: Performed By: #### D ATLIPI, DATPSA, DATBMP #### [facility] [address] [place] [address] Dr. Power oCvarrubias NEUT # 3.8 103/ul Normal 1.4-6.5 [facility] Comment on above: Performed By: #### D ATLIPI, DATPSA, DATBMP #### [facility] [address] [place] [address] Dr. Power Covarrubias Neutrophils/100 WBC (Bld) 70.0 % Normal 43.0-75.0 [facility] Comment on above: Performed By: #### D ATLIPI, DATPSA, DATBMP #### [facility] [address] [place] [address] Dr. Pwoer Covarrubias Platelet mean volume (Bld) [Entitic vol] 9.9 fL Normal 9.5-13.5 [facility] Comment on above: Performed By: #### D ATLIPI, DATPSA, DATBMP #### [facility] [address] [place] [address] Dr. Power Covarrubias PLT 195 103/ul Normal 150-450 [facility] Comment on above: Performed By: #### D ATLIPI, DATPSA, DATBMP #### [facility] [address] [place] [address] Dr. Power Covarrubias RBC 4.20 106/ul Critically low 4.70-6.10 [facility] Comment on above: Performed By: #### D ATLIPI, DATPSA, DATBMP #### [facility] [address] [place] [address] Dr. Power Covarrubias WBC 5.4 103/ul Normal 4.0-11.0 [facility] Comment on above: Performed By: #### D ATLIPI, DATPSA, DATBMP #### [facility] [address] [place] [address] Dr. Power Covarrubias BRE- BMP WITH LIPIDon 2021 Anion gap [Moles/Vol] 10.8 mmol/L Normal [facility] Comment on above: Performed By: #### D ATLIPI, DATPSA, DATBMP #### [facility] [address] [place] [address] Dr. Power Covarrubias Calcium [Mass/Vol] 9.3 mg/dL Normal 8.5-10.1 [facility] Comment on above: Performed By: #### D ATLIPI, DATPSA, DATBMP #### [facility] [address] [address] [address] Power Covarrubias Chloride [Moles/Vol] 105 mmol/L Normal 98-107 [facility] Comment on above: Performed By: #### D ATLIPI, DATPSA, DATBMP #### [facility] [address] [address] [address] Power Covarrubias Cholesterol [Mass/Vol] 123 mg/dL Normal <=200 [facility] Comment on above: Performed By: #### D ATLIPI, DATPSA, DATBMP #### [facility] [address] [place] [address] Dr. Power Covarrubias Cholesterol in HDL [Mass/Vol] 51 mg/dL Normal 40-60 [facility] Comment on above: Performed By: #### D ATLIPI, DATPSA, DATBMP #### [facility] [address] [address] [address] Power Covarrubias Cholesterol in LDL [Mass/Vol] 56.0 mg/dL Normal [facility] Comment on above: Performed By: #### D ATLIPI, DATPSA, DATBMP #### [facility] [address] [address] [address] Power Covarrubias CO2 [Moles/Vol] 28.2 mmol/L Normal 21.0-32.0 [facility] Comment on above: Performed By: #### D ATLIPI, DATPSA, DATBMP #### [facility] [address] [place] [address] Dr. Power Covarrubias Creatinine [Mass/Vol] 0.86 mg/dL Normal 0.70-1.30 [facility] Comment on above: Performed By: #### D ATLIPI, DATPSA, DATBMP #### [facility] [address] [place] [address] Dr. Power Covarrubias EGFR-AF MOROCCAN >60 Normal >=60 [facility] Comment on above: Performed By: #### D ATLIPI, DATPSA, DATBMP #### [facility] [address] [address] [address] Power Covarrubias EGFR-NON AF MOROCCAN >60 Normal >=60 [facility] Comment on above: Performed By: #### D ATLIPI, DATPSA, DATBMP #### [facility] [address] [address] [address] Power Covarrubias Glucose [Mass/Vol] 90 mg/dL Normal 74-106 [facility] Comment on above: Performed By: #### D ATLIPI, DATPSA, DATBMP #### [facility] [address] [address] [address] Power Covarrubias HDL NORMAL > or = 60 mg/dl - LO W CARDIOVASCULAR RISK <40 mg/dl - HIGH CARDIOVASCULAR RISK Normal [facility] Comment on above: Performed By: #### D ATLIPI, DATPSA, DATBMP #### [facility] [address] [address] [address] Power Covarrubias LDL CALC NORMAL SEE BELOW Normal [facility] Comment on above: Result Comment: <100 mg/dl OPTIMAL 100 - 129 mg/dl NEAR OR ABOVE OPTIMAL 130 - 159 mg/dl BORDERLINE HIGH 160 - 189 mg/dl HIGH >190 mg/dl VERY HIGH Performed By: #### D ATLIPI, DATPSA, DATBMP #### [facility] [address] [address] [address] Power Covarrubias Potassium [Moles/Vol] 4.0 mmol/L Normal 3.5-5.1 [facility] Comment on above: Performed By: #### D ATLIPI, DATPSA, DATBMP #### [facility] [address] [address] [address] Power Covarrubias Sodium [Moles/Vol] 140 mmol/L Normal 136-145 [facility] Comment on above: Performed By: #### D ATLIPI, DATPSA, DATBMP #### [facility] [address] [address] [address] Power Covarrubias Triglyceride [Mass/Vol] 80 mg/dL Normal <=150 [facility] Comment on above: Performed By: #### D ATLIPI, DATPSA, DATBMP #### [facility] [address] [place] [address] Dr. Power Covarrubias Urea nitrogen [Mass/Vol] 14.0 mg/dL Normal 7.0-18.0 [facility] Comment on above: Performed By: #### D ATLIPI, DATPSA, DATBMP #### [facility] [address] [place] [address] Dr. Power Covarrubias Urea nitrogen/Creatinine [Mass ratio] 16.3 mg/mg Normal [facility] Comment on above: Performed By: #### D ATLIPI, DATPSA, DATBMP #### [facility] [address] [place] [address] Dr. Power Covarrubias VLDL CALC 16.0 mg/dL Normal [facility] Comment on above: Performed By: #### D ATLIPI, DATPSA, DATBMP #### [facility] [address] [place] [address] Dr. Power Covarrubias OCC BLD IMMUNO SCREENon 06-16 OCCULT BLOOD Negative Normal NEGATIVE [facility] Comment on above: Performed By: #### O BSCRN #### [facility] [address] [place] [address] Dr. Power Covarrubias T4 [facility]on 06-30-2022 T4 [Mass/Vol] 9.2 ug/dL Normal 4.5-12.0 The [facility] Comment on above: Performed By: #### D ATLIPI, DATPSA, DATBMP #### [facility] [address] [place] [address] Dr. Power Covarrubias CBC AUTO DIFFon 06-29-2022 BASO # 0.0 103/ul Normal 0.0-0.1 [facility] Comment on above: Performed By: #### D ATLIPI, DATPSA, DATBMP #### [facility] [address] [place] [address] Dr. Power Covarrubias Basophils/100 WBC (Bld) 0.5 % Normal 0.2-2.0 [facility] Comment on above: Performed By: #### D ATLIPI, DATPSA, DATBMP #### [facility] [address] [place] [address] Dr. Power Covarrubias EO # 0.1 103/ul Normal 0.0-0.7 [facility] Comment on above: Performed By: #### D ATLIPI, DATPSA, DATBMP #### [facility] [address] [place] [address] Dr. Power Covarrubias Eosinophils/100 WBC (Bld) 2.5 % Normal 0.9-7.0 [facility] Comment on above: Performed By: #### D ATLIPI, DATPSA, DATBMP #### [facility] [address] [place] [address] Dr. Power Covarrubias Erythrocyte distribution width (RBC) [Ratio] 13.4 % Normal 11.0-15.0 [facility] Comment on above: Performed By: #### D ATLIPI, DATPSA, DATBMP #### [facility] [address] [place] [address] Dr. Power Covarrubias Hematocrit (Bld) [Volume fraction] 38.1 % Critically low 42.0-54.0 [facility] Comment on above: Performed By: #### D ATLIPI, DATPSA, DATBMP #### [facility] [address] [place] [address] Dr. Power Covarrubias Hemoglobin (Bld) [Mass/Vol] 12.0 g/dL Critically low 14.0-18.0 [facility] Comment on above: Performed By: #### D ATLIPI, DATPSA, DATBMP #### [facility] [address] [place] [address] Dr. Power Covarrubias IG # 0.01 10e3/ul Normal 0.00-0.03 [facility] Comment on above: Performed By: #### D ATLIPI, DATPSA, DATBMP #### [facility] [address] [place] [address] Dr. Power Covarrubias IG % 0.2 % Normal 0.0-0.5 [facility] Comment on above: Performed By: #### D ATLIPI, DATPSA, DATBMP #### [facility] [address] [place] [address] Dr. Power Covarrubias LYMPH # 0.9 103/ul Critically low 1.2-3.8 [facility] Comment on above: Performed By: #### D ATLIPI, DATPSA, DATBMP #### [facility] [address] [place] [address] Dr. Power Covarrubias Lymphocytes/100 WBC (Bld) 15.5 % Critically low 20.5-60.0 [facility] Comment on above: Performed By: #### D ATLIPI, DATPSA, DATBMP #### [facility] [address] [place] [address] Dr. Power Covarrubias MANUAL DIFF REQ NO Normal [facility] Comment on above: Performed By: #### D ATLIPI, DATPSA, DATBMP #### [facility] [address] [place] [address] Dr. Power Covarrubias MCH (RBC) [Entitic mass] 30.2 pg Normal 25.9-34.0 [facility] Comment on above: Performed By: #### D ATLIPI, DATPSA, DATBMP #### [facility] [address] [place] [address] Dr. Power Covarrubias MCHC (RBC) [Mass/Vol] 31.5 g/dL Normal 29.9-35.2 [facility] Comment on above: Performed By: #### D ATLIPI, DATPSA, DATBMP #### [facility] [address] [place] [address] Dr. Power Covarrubias MCV (RBC) [Entitic vol] 96.0 fL Critically high 80.0-94.0 [facility] Comment on above: Performed By: #### D ATLIPI, DATPSA, DATBMP #### [facility] [address] [place] [address] Dr. Power Covarrubias MONO # 0.5 103/ul Normal 0.3-0.8 [facility] Comment on above: Performed By: #### D ATLIPI, DATPSA, DATBMP #### [facility] [address] [place] [address] Dr. Power Covarrubias Monocytes/100 WBC (Bld) 9.5 % Normal 1.7-12.0 [facility] Comment on above: Performed By: #### D ATLIPI, DATPSA, DATBMP #### [facility] [address] [place] [address] Dr. Power Covarrubias NEUT # 4.1 103/ul Normal 1.4-6.5 [facility] Comment on above: Performed By: #### D ATLIPI, DATPSA, DATBMP #### [facility] [address] [place] [address] Dr. Power Covarrubias Neutrophils/100 WBC (Bld) 71.8 % Normal 43.0-75.0 [facility] Comment on above: Performed By: #### D ATLIPI, DATPSA, DATBMP #### [facility] [address] [place] [address] Dr. Power Covarrubias Platelet mean volume (Bld) [Entitic vol] 9.8 fL Normal 9.5-13.5 [facility] Comment on above: Performed By: #### D ATLIPI, DATPSA, DATBMP #### [facility] [address] [place] [address] Dr. Power Covarrubias PLT 212 103/ul Normal 150-450 [facility] Comment on above: Performed By: #### D ATLIPI, DATPSA, DATBMP #### [facility] [address] [place] [address] Dr. Power Covarrubias RBC 3.97 106/ul Critically low 4.70-6.10 [facility] Comment on above: Performed By: #### D ATLIPI, DATPSA, DATBMP #### [facility] [address] [place] [address] Dr. Power Covarrubias WBC 5.7 103/ul Normal 4.0-11.0 [facility] Comment on above: Performed By: #### D ATLIPI, DATPSA, DATBMP #### [facility] [address] [address] [address] Power Covarrubias FREE T3on 06-29-2022 FREE T3 2.73 pg/mlL Normal 2.18-3.98 [facility] Comment on above: Performed By: #### D ATLIPI, DATPSA, DATBMP #### [facility] [address] [address] [address] Power Covarrubias GLYCOHEMOGLOBIN A1Con 2021 ADA RECOMMENDATION SEE BELOW Normal [facility] Comment on above: Result Comment: ADA RECOMMENDED LIMIT 4.0 - 6.0 ADA THERAPEUTIC TARGET < 7.0 ACTION SUGGESTED > 7.0 Performed By: #### A 1C #### [facility] [address] [place] [address] Dr. Power Covarrubias Glucose [Mass/Vol] 114 mg/dL Normal [facility] Comment on above: Performed By: #### A 1C #### [facility] [address] [place] [address] Dr. Power Covarrubias HbA1c (Bld) [Mass fraction] 5.6 % Normal 4.5-6.2 [facility] Comment on above: Performed By: #### A 1C #### [facility] [address] [place] [address] Dr. Power Covarrubias LIPID PROFILEon 06-29-2022 CHOL-HDL RATIO NORM SEE BELOW Normal [facility] Comment on above: Result Comment: 3.3 - 4.4 LOW RISK 4.4 - 7.1 AVERAGE RISK 7.1 - 11.0 MODERATE RISK >11.0 HIGH RISK Performed By: #### D ATLIPI, DATPSA, DATBMP #### [facility] [address] [place] [address] Dr. Power Covarrubias Cholesterol [Mass/Vol] 110 mg/dL Normal <=200 [facility] Comment on above: Performed By: #### D ATLIPI, DATPSA, DATBMP #### [facility] [address] [place] [address] Dr. Power Covarrubias Cholesterol in HDL [Mass/Vol] 47 mg/dL Normal 40-60 [facility] Comment on above: Performed By: #### D ATLIPI, DATPSA, DATBMP #### [facility] [address] [address] [address] Power Covarrubias Cholesterol in LDL [Mass/Vol] 51.2 mg/dL Normal [facility] Comment on above: Performed By: #### D ATLIPI, DATPSA, DATBMP #### [facility] [address] [address] [address] Power Covarrubias Cholesterol.total/Ch olesterol in HDL [Mass ratio] 2.3 {ratio} Normal [facility] Comment on above: Performed By: #### D ATLIPI, DATPSA, DATBMP #### [facility] [address] [address] [address] Power Covarrubias HDL NORMAL > or = 60 mg/dl - LO W CARDIOVASCULAR RISK <40 mg/dl - HIGH CARDIOVASCULAR RISK Normal [facility] Comment on above: Performed By: #### D ATLIPI, DATPSA, DATBMP #### [facility] [address] [address] [address] Power Covarrubias LDL CALC NORMAL SEE BELOW Normal [facility] Comment on above: Result Comment: <100 mg/dl OPTIMAL 100 - 129 mg/dl NEAR OR ABOVE OPTIMAL 130 - 159 mg/dl BORDERLINE HIGH 160 - 189 mg/dl HIGH >190 mg/dl VERY HIGH Performed By: #### D ATLIPI, DATPSA, DATBMP #### [facility] [address] [address] [address] Power Covarrubias Triglyceride [Mass/Vol] 59 mg/dL Normal <=150 [facility] Comment on above: Performed By: #### D ATLIPI, DATPSA, DATBMP #### [facility] [address] [address] [address] Power Covarrubias VLDL CALC 11.8 mg/dL Normal [facility] Comment on above: Performed By: #### D ATLIPI, DATPSA, DATBMP #### [facility] [address] [place] [address] Dr. Power Covarrubias PROF 14(COMP METB)on 022 Albumin [Mass/Vol] 3.3 g/dL Critically low 3.4-5.[address] [facility] Comment on above: Performed By: #### D ATLIPI, DATPSA, DATBMP #### [facility] [address] [place] [address] Dr. Power Covarrubias Albumin/Globulin [Mass ratio] 0.9 {ratio} Normal [facility] Comment on above: Performed By: #### D ATLIPI, DATPSA, DATBMP #### [facility] [address] [place] [address] Dr. Power Covarrubias ALP [Catalytic activity/Vol] 100 U/L Normal 46-116 [facility] Comment on above: Performed By: #### D ATLIPI, DATPSA, DATBMP #### [facility] [address] [place] [address] Dr. Power Covarrubias ALT [Catalytic activity/Vol] 16 U/L Normal 16-63 [facility] Comment on above: Performed By: #### D ATLIPI, DATPSA, DATBMP #### [facility] [address] [place] [address] Dr. Power Covarrubias Anion gap [Moles/Vol] 11.4 mmol/L Normal [facility] Comment on above: Performed By: #### D ATLIPI, DATPSA, DATBMP #### [facility] [address] [place] [address] Dr. Power Covarrubias AST [Catalytic activity/Vol] 14 U/L Critically low 15-37 [facility] Comment on above: Performed By: #### D ATLIPI, DATPSA, DATBMP #### [facility] [address] [place] [address] Dr. Power Covarrubias Bilirubin [Mass/Vol] 0.7 mg/dL Normal 0.2-1.0 [facility] Comment on above: Performed By: #### D ATLIPI, DATPSA, DATBMP #### [facility] [address] [address] [address] Power Covarrubias Calcium [Mass/Vol] 9.0 mg/dL Normal 8.5-10.1 [facility] Comment on above: Performed By: #### D ATLIPI, DATPSA, DATBMP #### [facility] [address] [place] [address] Dr. Power Covarrubias Chloride [Moles/Vol] 107 mmol/L Normal 98-107 [facility] Comment on above: Performed By: #### D ATLIPI, DATPSA, DATBMP #### [facility] [address] [place] [address] Dr. Power Covarrubias CO2 [Moles/Vol] 28.5 mmol/L Normal 21.0-32.0 [facility] Comment on above: Performed By: #### D ATLIPI, DATPSA, DATBMP #### [facility] [address] [place] [address] Dr. Power Covarrubias Creatinine [Mass/Vol] 0.87 mg/dL Normal 0.70-1.30 [facility] Comment on above: Performed By: #### D ATLIPI, DATPSA, DATBMP #### [facility] [address] [place] [address] Dr. Power Covarrubias EGFR-AF MOROCCAN >60 Normal >=60 [facility] Comment on above: Performed By: #### D ATLIPI, DATPSA, DATBMP #### [facility] [address] [place] [address] Dr. Power Covarrubias EGFR-NON AF MOROCCAN >60 Normal >=60 [facility] Comment on above: Performed By: #### D ATLIPI, DATPSA, DATBMP #### [facility] [address] [place] [address] Dr. Power Covarrubias Globulin (S) [Mass/Vol] 3.6 g/dL Normal [facility] Comment on above: Performed By: #### D ATLIPI, DATPSA, DATBMP #### [facility] [address] [place], [place] [id number] Dr. Power Covarrubias Glucose [Mass/Vol] 90 mg/dL Normal 74-106 [facility] Comment on above: Performed By: #### D ATLIPI, DATPSA, DATBMP #### [facility] [address] [place] [address] Dr. Power Covarrubias Potassium [Moles/Vol] 3.9 mmol/L Normal 3.5-5.1 [facility] Comment on above: Performed By: #### D ATLIPI, DATPSA, DATBMP #### [facility] [address] [address] [address] Power Covarrubias Protein [Mass/Vol] 6.9 g/dL Normal 6.4-8.2 [facility] Comment on above: Performed By: #### D ATLIPI, DATPSA, DATBMP #### [facility] [address] [place] [address] Dr. Power Covarrubias Sodium [Moles/Vol] 143 mmol/L Normal 136-145 [facility] Comment on above: Performed By: #### D ATLIPI, DATPSA, DATBMP #### [facility] [address] [place] [address] Dr. Power Covarrubias Urea nitrogen [Mass/Vol] 13.0 mg/dL Normal 7.0-18.0 [facility] Comment on above: Performed By: #### D ATLIPI, DATPSA, DATBMP #### [facility] [address] [place] [address] Dr. Power Covarrubias Urea nitrogen/Creatinine [Mass ratio] 14.9 mg/mg Normal [facility] Comment on above: Performed By: #### D ATLIPI, DATPSA, DATBMP #### [facility] [address] [place] [address] Dr. Power Covarrubias TSHon 06-29-2022 TSH 2.585 uIU/mL Normal 0.358-3.740 The [facility] Comment on above: Performed By: #### T SH, LIPID, FT3, CMP #### [facility] [address] [place] [address] Dr. Power Covarrubias CBC AUTO DIFFon 04-09-2022 BASO # 0.1 103/ul Normal 0.0-0.1 [facility] Comment on above: Performed By: #### D ATCBC #### [facility] [address] [place] [address] Dr. Power Covarrubias Basophils/100 WBC (Bld) 1.0 % Normal 0.2-2.0 [facility] Comment on above: Performed By: #### D ATCBC #### [facility] [address] [place] [address] Dr. Power Covarrubias EO # 0.2 103/ul Normal 0.0-0.7 [facility] Comment on above: Performed By: #### D ATCBC #### [facility] [address] [place] [address] Dr. Power Covarrubias Eosinophils/100 WBC (Bld) 3.7 % Normal 0.9-7.0 [facility] Comment on above: Performed By: #### D ATCBC #### [facility] [address] [place] [address] Dr. Power Covarrubias Erythrocyte distribution width (RBC) [Ratio] 13.3 % Normal 11.0-15.0 [facility] Comment on above: Performed By: #### D ATCBC #### [facility] [address] [place] [address] Dr. Power Covarrubias Hematocrit (Bld) [Volume fraction] 37.8 % Critically low 42.0-54.0 [facility] Comment on above: Performed By: #### D ATCBC #### [facility] [address] [place] [address] Dr. Power Covarrubias Hemoglobin (Bld) [Mass/Vol] 12.4 g/dL Critically low 14.0-18.0 [facility] Comment on above: Performed By: #### D ATCBC #### [facility] [address] [place] [address] Dr. Power Covarrubias IG # 0.01 10e3/ul Normal 0.00-0.03 [facility] Comment on above: Performed By: #### D ATCBC #### [facility] [address] [address] [address] Power Covarrubias IG % 0.2 % Normal 0.0-0.5 [facility] Comment on above: Performed By: #### D ATCBC #### [facility] [address] [place] [address] Dr. Power Covarrubias LYMPH # 1.0 103/ul Critically low 1.2-3.8 [facility] Comment on above: Performed By: #### D ATCBC #### [facility] [address] [place] [address] Dr. Power Covarrubias Lymphocytes/100 WBC (Bld) 19.0 % Critically low 20.5-60.0 [facility] Comment on above: Performed By: #### D ATCBC #### [facility] [address] [place] [address] Dr. Power Covarrubias MCH (RBC) [Entitic mass] 30.9 pg Normal 25.9-34.0 [facility] Comment on above: Performed By: #### D ATCBC #### [facility] [address] [place] [address] Dr. Power Covarrubias MCHC (RBC) [Mass/Vol] 32.8 g/dL Normal 29.9-35.2 [facility] Comment on above: Performed By: #### D ATCBC #### [facility] [address] [place] [address] Dr. Power Covarrubias MCV (RBC) [Entitic vol] 94.3 fL Critically high 80.0-94.0 [facility] Comment on above: Performed By: #### D ATCBC #### [facility] [address] [place] [address] Dr. Power Covarrubias MONO # 0.5 103/ul Normal 0.3-0.8 [facility] Comment on above: Performed By: #### D ATCBC #### [facility] [address] [place] [address] Dr. Power Covarrubias Monocytes/100 WBC (Bld) 9.4 % Normal 1.7-12.0 [facility] Comment on above: Performed By: #### D ATCBC #### [facility] [address] [address] [address] Power Covarrubias NEUT # 3.4 103/ul Normal 1.4-6.5 [facility] Comment on above: Performed By: #### D ATCBC #### [facility] [address] [address] [address] Power Covarrubias Neutrophils/100 WBC (Bld) 66.7 % Normal 43.0-75.0 [facility] Comment on above: Performed By: #### D ATCBC #### [facility] [address] [address] [address] Power Covarrubias Platelet mean volume (Bld) [Entitic vol] 9.9 fL Normal 9.5-13.5 [facility] Comment on above: Performed By: #### D ATCBC #### [facility] [address] [address] [address] Power Covarrubias PLT 205 103/ul Normal 150-450 [facility] Comment on above: Performed By: #### D ATCBC #### [facility] [address] [address] [address] Power Covarrubias RBC 4.01 106/ul Critically low 4.70-6.10 [facility] Comment on above: Performed By: #### D ATCBC #### [facility] [address] [address] [address] Power Covarrubias WBC 5.1 103/ul Normal 4.0-11.0 [facility] Comment on above: Performed By: #### D ATCBC #### [facility] [address] [address] [address] Power Covarrubias BRE- BMP WITH LIPIDon 2021 Anion gap [Moles/Vol] 9.5 mmol/L Normal [facility] Comment on above: Performed By: #### D ATLIPI, DATPSA, DATBMP #### [facility] [address] [address] [address] Power Covarrubias Calcium [Mass/Vol] 9.0 mg/dL Normal 8.5-10.1 [facility] Comment on above: Performed By: #### D ATLIPI, DATPSA, DATBMP #### [facility] [address] [address] [address] Power Covarrubias Chloride [Moles/Vol] 108 mmol/L Critically high 98-107 [facility] Comment on above: Performed By: #### D ATLIPI, DATPSA, DATBMP #### [facility] [address] [address] [address] Power Covarrubias Cholesterol [Mass/Vol] 114 mg/dL Normal <=200 [facility] Comment on above: Performed By: #### D ATLIPI, DATPSA, DATBMP #### [facility] [address] [place] [address] Dr. Power Covarrubias Cholesterol in HDL [Mass/Vol] 49 mg/dL Normal 40-60 [facility] Comment on above: Performed By: #### D ATLIPI, DATPSA, DATBMP #### [facility] [address] [place] [address] Dr. Power Covarrubias Cholesterol in LDL [Mass/Vol] 50.4 mg/dL Normal [facility] Comment on above: Performed By: #### D ATLIPI, DATPSA, DATBMP #### [facility] [address] [place] [address] Dr. Power Covarrubias CO2 [Moles/Vol] 28.3 mmol/L Normal 21.0-32.0 [facility] Comment on above: Performed By: #### D ATLIPI, DATPSA, DATBMP #### [facility] [address] [place] [address] Dr. Power Covarrubias Creatinine [Mass/Vol] 0.88 mg/dL Normal 0.70-1.30 [facility] Comment on above: Performed By: #### D ATLIPI, DATPSA, DATBMP #### [facility] [address] [place] [address] Dr. Power Covarrubias EGFR-AF MOROCCAN >60 Normal >=60 [facility] Comment on above: Performed By: #### D ATLIPI, DATPSA, DATBMP #### [facility] [address] [address] [address] Power Covarrubias EGFR-NON AF MOROCCAN >60 Normal >=60 [facility] Comment on above: Performed By: #### D ATLIPI, DATPSA, DATBMP #### [facility] [address] [address] [address] Power Covarrubias Glucose [Mass/Vol] 107 mg/dL Critically high 74-106 [facility] Comment on above: Performed By: #### D ATLIPI, DATPSA, DATBMP #### [facility] [address] [address] [address] Power Covarrubias HDL NORMAL > or = 60 mg/dl - LO W CARDIOVASCULAR RISK <40 mg/dl - HIGH CARDIOVASCULAR RISK Normal [facility] Comment on above: Performed By: #### D ATLIPI, DATPSA, DATBMP #### [facility] [address] [address] [address] Power Covarrubias LDL CALC NORMAL SEE BELOW Normal [facility] Comment on above: Result Comment: <100 mg/dl OPTIMAL 100 - 129 mg/dl NEAR OR ABOVE OPTIMAL 130 - 159 mg/dl BORDERLINE HIGH 160 - 189 mg/dl HIGH >190 mg/dl VERY HIGH Performed By: #### D ATLIPI, DATPSA, DATBMP #### [facility] [address] [address] [address] Power Covarrubias Potassium [Moles/Vol] 3.8 mmol/L Normal 3.5-5.1 [facility] Comment on above: Performed By: #### D ATLIPI, DATPSA, DATBMP #### [facility] [address] [address] [address] Power Covarrubias Sodium [Moles/Vol] 142 mmol/L Normal 136-145 [facility] Comment on above: Performed By: #### D ATLIPI, DATPSA, DATBMP #### [facility] [address] [address] [address] Power Covarrubias Triglyceride [Mass/Vol] 73 mg/dL Normal <=150 [facility] Comment on above: Performed By: #### D ATLIPI, DATPSA, DATBMP #### [facility] [address] [address] [address] Power Covarrubias Urea nitrogen [Mass/Vol] 12.0 mg/dL Normal 7.0-18.0 [facility] Comment on above: Performed By: #### D ATLIPI, DATPSA, DATBMP #### [facility] [address] [address] [address] Power Covarrubias Urea nitrogen/Creatinine [Mass ratio] 13.6 mg/mg Normal [facility] Comment on above: Performed By: #### D ATLIPI, DATPSA, DATBMP #### [facility] [address] [address] [address] Power Covarrubias VLDL CALC 14.6 mg/dL Normal [facility] Comment on above: Performed By: #### D ATLIPI, DATPSA, DATBMP #### [facility] [address] [address] [address] Power Covarrubias Cardiovascular Lab Reporton 07-03-2020 Cardiovascular Lab Report [facility] Patient Name: Oscar Cox [facility] MR #: [id number] Physician: Shiloh Hester Department of M.D. Medicine Service Date: 07/03/2020 Division of Birthdate: 1945 Cardiology Room #: Adult Cardiovascular Services [place] [address] Cardiovascular Laboratory Report FINAL IMPRESSIONS: 1. Bhqs-pe-wtxqoyyo 3-vessel coronary artery disease. 2. Qmnv-vk-drkznpsl left main coronary artery disease that appears [...] Follow up with Dr. Hester in the [facility] in the next 1 to 2 months. [...] to access the left radial artery. A 6-Salvadorean glide sheath was inserted without difficulty. Resistance [...] Hester M.D. Date Trans: 07/03/2020 02:42 P/anibal [id number] cc: Neo Gould M.D. [address], [facility] [place] [address] [facility] Vital Signs Date Time Vital Sign Value Performing Clinician Luis Fernandoi shantell 03-28-2023 14:23-0400 Blood Pressure Location Zhang DENISE [facility] 03-28-2023 14:23-0400 Diastolic blood pressure 60 mm[Hg] Zhang DENISE [facility] 03-28-2023 14:23-0400 Heart rate 60 /min Zhang DENISE [facility] 03-28-2023 14:23-0400 Respiratory rate 16 /min Zhang DENISE [facility] 03-28-2023 14:23-0400 Systolic blood pressure 116 mm[Hg] [facility] En[facility] Date Encounter Type Care Provider Facility Start: 04-02-2024 End: 04-02-2024 ambulatory TINY TRAVIS Not Available Start: 03-19-2024 End: 03-19-2024 ambulatory Zhang DENISE Facility:[facility] [place] Start: 03-05-2024 End: 03-05-2024 ambulatory FELICIA TAPIA [facility] Start: 02-19-2024 End: 02-19-2024 ambulatory [facility] Start: 12-13-2023 End: 12-13-2023 ambulatory [facility] Start: 11-27-2023 End: 11-27-2023 [facility]: 09-13-2023 ambulatory Ghislaine Morales Facility:[facility] [place] Start: 06-15-2023 ambulatory Zhang DENISE Facility:[facility] Start: 06-01-2023 End: 06-01-2023 [facility] Start: 05-09-2023 ambulatory Zhang DENISE Facility :[facility] [place] Start: 04-26-2023 End: 04-27-2023 ambulatory Zhang DENISE Facility:[id number] Start: 03-28-2023 End: 03-29-2023 ambulatory Zhang [...] By: #### D ATLIPI, DATPSA, DATBMP #### [facility] [address], [place] [address] Dr. Power Covarrubias Start: 08-31-2022 PSA screening PEBBLES B OES Comment on above: Performed By: #### D ATLIPI, DATPSA, DATBMP #### [facility] [address], [place] [address] Dr. Power Covarrubias Start: 06-29-2022 PSA screening PEBBLES B OES Comment on above: Performed By: #### P SASC #### [facility] [address] [id number] Power Covarrubias Start: 10-04-2017 Colonoscopy Zhang NG Excision of lumbar intervertebral disc Zhang HOWIE Comment on above: L5 Repair of hip Zhang DENISE Immunizations Immunization Date Immunization Notes Care Provider Fa cili 04-29-2021 SARS-CoV-2 (COVID-19 ) mRNA BNT-162b2 vax Zhang NILL [facility] [place] 04-09-2021 SARS-CoV-2 (COVID-19 ) mRNA BNT-162b2 vax Zhang NILL [facility] [place] Payers Date Payer Category Payer Self-pay 1959 Unknown [id number] 1945 Unknown [id number] 2.16.84 [id number] 1945 Unknown [id number] 2.16.84 [id number] 1945 Unknown [id number] 2.16.8 40.1.385138.3.579.2.1286 1945 Unknown [id number] 2.16.8 40.1.834157.3.579.2.727 1945 Unknown [id number] 2.16.8 40.1.409015.3.579.2.727 1945 Unknown [id number] 2.16.8 40.1.863218.3.579.2.727 1945 Unknown [id number] 2.16.8 40.1.688035.3.579.2.727 1945 Unknown [id number] 2.16.8 40.1.527140.3.579.2.727 1945 Unknown [id number] 2.16.84 0.1.605098.3.579.2.1259 1945 Unknown [id number] 2.16.84 0.1.188172.3.579.2.1259 Unknown [id number] 2.16.84 0.1.058321.3.579.2.593 Unknown [id number] 2.16.84 0.1.269194.3.579.2.593 Unknown [id number] 2.16.84 0.1.226634.3.579.2.593 Social History Date Type Detail Facility Start: 03-28-2023 Tobacco smoking status Never s moked tobacco (finding) [facility] [place] Tobacco smoking status Never [facility] [place] Sex Assigned At Male [facility] Functional Status Date Assessment Result Facility 03-28-2023 Functional Status N/A [facility] Progress note 02-19-2024 Note Date & Type Note Facility 02-19-2024 Note [facility] Note Chief Complaint: Patient here for follow up [facility] for elevated troponin and bradycardia. He [...] 07/03/2020 Cardiovascular Laboratory Report FINAL IMPRESSIONS: 1. Hxpt-ar-tfyoparn 3-vessel coronary artery disease. 2. Vteu-aw-kqewghbt left main coronary artery disease that appears unchanged from prior angiography. 3. Normal global left ventricular (more content not included)... [facility] Progress note 12-13-2023 Note Date & Type Note Facility 12-13-[address] [facility] Cardiology Clinic Note Chief Complaint: Patient [...] 07/03/2020 Cardiovascular Laboratory Report FINAL IMPRESSIONS: 1. Kpda-gb-vlltkjzr 3-vessel coronary artery disease. 2. Fymx-mn-lohgryij left main coronary artery disease that appears [...] atrium is sever (more content not included)... 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 He has history [...] Latest known visit (more content not included)... [facility] Progress note 06-01-2023 Note Date & [...] month ago He was admitted 04/28-05/02 at [facility] following the last fall and has [...] bradycardia during ho (more content not included)... [facility] Clinical Note 03-28-2023 Note Date & [...] informed consent obtained. 2. 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) hold Eliquis 2 [...] SARS-CoV-2 (COVID-19) mRNA BNT-162b2 vax 04/09/2021 Recorded [facility] Comment on above: Result Comment: Elec tronically Signed By: HOWIE LOPEZ, Zhang Yan\Date and Time Signed: 03/28/23 20:17 EDT Evaluation + Plan note Note Date & Type Note Facility Evaluation + Plan note No data available for this section [facility] Discharge instructions Note Date & Type Note Facility Hospital Discharge instructions No data available for this section [facility] [place] Progress note Note Date & Type Note Facility Progress note No data available for this section [facility] [place] Summary Purpose Family History No Family History [...] and content) DATE CREATED AUTHOR 07/07/2020 [facility] DATE CREATED AUTHOR AUTHOR'S ORGANIZ ATION 03/02/2023 [facility] DATE CREATED AUTHOR AUTHOR'S ORGANIZ ATION 03/08/2024 [facility] DATE CREATED AUTHOR AUTHOR'S ORGANIZ ATION 03/12/2024 [facility] DATE CREATED AUTHOR AUTHOR'S ORGANIZ ATION 04/04/2024 [facility] EP[facility] DATE CREATED AUTHOR AUTHOR'S ORGANIZ ATION 04/09/2024 [facility] Patient Care team informatio n (unrecognized section and content) Personnel Name: Neo Gould MD Address: Address: [address] [place], [place] [id number] FOR RECORDS PERTAINING TO PATIENTS WHO [...] BASED ON THE PRIMARY CLINICAL RECORDS. [facility]. provides no warranty or guarantee of the accuracy or completeness of information in this document.
== END 2024-08-02 14:05 | disposition home or self-care (01) ==
LOC: CARD 14:04
PROVIDERS: PCP Family Medicine; Visit Provider Family Medicine
DX: R00.1 Bradycardia, unspecified (principal); R53.1 Weakness; I48.11 Longstanding persistent atrial fibrillation
CPT/HCPCS: 93308

== ENCOUNTER 2024-08-14 13:58 | Outpatient (RCR) | payer MEDICARE, SELFPAY | END 2024-09-11 08:39 | disposition home or self-care (01) | LOC: PT 13:58 | PROVIDERS: PCP Family Medicine; Visit Provider Family Medicine | DX: M25.511 Pain in right shoulder (principal) | CPT/HCPCS: 97110; 97162 ==

== ENCOUNTER 2024-09-19 16:12 | Outpatient (OUT) | payer MEDICARE, SELFPAY ==
[2024-09-19 17:23] LABS: Thyroid Stimulating Hormone 4.817 uIU/mL (0.358-3.740)
[2024-09-21 04:08] LABS: Vitamin B12 334 pg/mL (232-1245)
[2024-09-23 16:09] LABS: Alpha-1-Globulin 0.4 g/dL (0.0-0.4); Alpha-2-Globulin 0.9 g/dL (0.4-1.0); Gamma Globulin 0.9 g/dL (0.4-1.8); Protein, Total 6.3 g/dL (6.0-8.5)
== END 2024-09-19 16:13 | disposition home or self-care (01) ==
LOC: LAB 16:14
PROVIDERS: PCP Family Medicine; Visit Provider Psychiatry & Neurology Neurology
DX: G60.9 Hereditary and idiopathic neuropathy, unspecified (principal); R20.0 Anesthesia of skin; R20.2 Paresthesia of skin
CPT/HCPCS: 36415; 82607; 82746; 84155; 84165; 84443

== ENCOUNTER 2024-09-26 13:51 | Outpatient (OUT) | payer MEDICARE, SELFPAY ==
--- NOTE | 2024-09-26 13:56 | MR_ITS ---
[address] [address] Patient Name: JACKSON IQBAL MRN: [id number] date: 1945 Sex: M Assigned Patient Location: MRI Current Patient Location: MRI Accession/Order Number: [id number] Exam Date: 09/26/2024 14:10 Report Date: 09/27/2024 12:59 At the request of: NEO CARRERA Procedure: MR shoulder RT wo con EXAM: MR shoulder RT wo con HISTORY: Right Shoulder Pain COMPARISON: 07/26/2024 TECHNIQUE: MRI images obtained with multiple sequences. MRI of the right shoulder without contrast. Sequences obtained by standard department protocol. FINDINGS: Motion artifact limits the examination. High-riding humeral head. Full-thickness focal tear of the supraspinatus/infraspinatus tendon. Retraction measuring approximately 4.1 cm. Suspected high-grade tearing of the subscapularis tendon. No definitive full-thickness chondral loss of the glenohumeral joint. Moderate degeneration at the acromioclavicular joint with associated joint effusion. Intra-articular body of the posterior joint space measuring 1 cm in diameter (axial PD fat-sat image 10). MR/MR shoulder RT wo con IMPRESSION: Motion artifact limits examination. For a fully diagnostic exam, repeat exam should be obtained. 1. Full-thickness focal tear of the supraspinatus/infraspinatus tendon. Retraction measuring approximately 4.1 cm. 2. Suspected high-grade tearing of the subscapularis tendon. 3. Moderate degeneration at the acromioclavicular joint with associated joint effusion. 4. Intra-articular body of the posterior joint space measuring 1 cm in diameter (axial PD fat-sat image 10). Electronically authenticated by: LANCE LANCASTER Date: 09/27/2024 12:59
== END 2024-09-26 13:52 | disposition home or self-care (01) ==
LOC: MRI 13:51
PROVIDERS: PCP Family Medicine; Visit Provider Family Medicine
DX: M25.511 Pain in right shoulder (principal); S46.011A Strain of muscle(s) and tendon(s) of the rotator cuff of right shoulder, initial encounter; M25.411 Effusion, right shoulder
CPT/HCPCS: 73221

== ENCOUNTER 2024-12-26 16:31 | Outpatient (OUT) | payer MEDICARE, SELFPAY ==
--- OUTSIDE RECORDS SUMMARY | 2024-12-26 17:01 | XMS_ITS | CCD ---
Author Organization [facility] Care Team Providers Care Professor Of Communication Arts Name Role Phone PEBBLES WOODARD Primary Care Unavailable LUIS FERNANDO ., DR LARSON Admitting Unavailable HOY ., DR LARSON Consulting Unavailable HOY ., DR LARSON Attending Unavailable REQUEST, DR ALLEN LISTED Admitting Unavaila ble REQUEST, DR ALLEN LISTED Attending Unavaila ble HOY ., DR LARSON Primary Care Unavailable HOY ., DR LARSON Consulting Unavailable REQUEST, NONE LISTED Admitting Unavaila ble REQUEST, DR ALLEN LISTED Attending Unavaila PIETRO Ramos Primary Care Unavailable PIETRO TORRE Consulting Unavailable REQUEST, DR ALLEN LISTED Admitting Unavaila ble REQUEST, DR ALLEN LISTED Consulting Unavaila ble REQUEST, DR ALLEN LISTED Attending Unavaila PEBBLES Lei Primary Care Unavailable LUIS FERNANDO ., DR LARSON Primary Care Unavailable MISC, DR ALBERTO Admitting Unavailable MISC, DR ALBERTO Consulting Unavailable MISC, DR ALBERTO Attending Unavailable Neo Gould Primary Care Physician PIETRO TORRE Attending Unavailable NEO GOULD Referring Unavailable NEO GOULD Primary Care Unavailable NILZhang Alvarez Attending Unavailable NILLZhang Attending Unavailable NILZhang Alvarez Attending Unavailable NILLZhang Attending Unavailable Ghislaine Morales Attending Unavailable Neo Gould Referring Unavailable JONATHAN HARRISON Attending Unavailable ROBERT HESTERAB Attending Unavailable SHILOH HESTER Attending Unavailable SHILOH HESTER Attending Unavailable Neo Gould MD Primary Care Provider [phone] Tejas Saab DO Unavailable Neo Gould MD Primary Care Provider [phone] Neo Gould MD Primary Care Provider HORTENCIA ROHT Attending Unavailable TINY TRAVIS Attending Unavailable TINY TRAVIS Attending Unavailable TEJAS SAAB Attending Unavailable NEO GOULD Referring Unavailable TEJAS SAAB Attending Unavailable TEJAS SAAB Attending Unavailable PADMA LAU Attending Unavailable Allergies Allergy Classification Reported Allergen(s) Allergy Type Date of Onset Reaction(s) Facility (1 source) No Known Medication Allergies; 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: [No Known Medication Allergies] Propensity to adverse reactions (disorder) [facility] Repository Medications Current Medications Medication Drug Class(es) Dates Sig (Normalized) Sig (Original) acetaminophen 325 mg oral tablet (12 sources) acetaminophen (T ylenol) 325 MG tablet every 4 (four) hours. Active End: 03-05-2024 take 2 tablets by mouth every four hours as needed for pain acetaminophen (TYLENOL) 325 mg tablet Take 2 tablets (650 mg total) by mouth every 4 (four) hours as needed for pain. 03/05/2024 Discontinued amLODIPine 10 mg oral tablet (2 sources) Dihydropyridine Calcium Channel Jv take 8 tablets by mouth in the morning amLODIPine (NORVASC) 10 mg tablet Take 8 tablets (80 mg total) by mouth in the morning. Active apixaban 5 mg oral tablet (13 sources) Factor Xa Inhibitor Start: 03-15-20 End: 03-05-20 24 take 1 tablet by mouth twice daily Eliquis 5 mg oral tablet 5 mg = 1 tab(s), Oral, BID, Refills(s) 0 Start Date: 03/15/23 Status: Ordered atorvastatin 80 mg oral tablet (13 sources) HMG-CoA Reductase Inhibitor Start: 03-15-20 End: 03-05-20 24 take 1 tablet by mouth once daily Lipitor 80 mg Tab 80 mg = 1 tab(s), Oral, Daily, Refills(s) 0 Start Date: 03/15/23 Status: Ordered baclofen 5 mg oral tablet (11 sources) gamma-Aminobutyric Acid-ergic Agonist baclofen (Lioresal) 5 MG tablet every 12 (twelve) hours Active carvedilol 25 mg oral tablet (2 sources) alpha-Adrenergic Jv, beta-Adrenergic Jv Start: 03-15-20 Coreg 25 mg Tab 12.5 mg = 0.5 tab(s), Oral, BID, Refills(s) 0 Start Date: 03/15/23 Status: Ordered End: 03-05-2024 take 1 tablet by mouth in the morning, then take 1 tablet by mouth at mealtime carvediloL (COREG) 12.5 mg tablet Take 1 tablet (12.5 mg total) by mouth in the morning and 1 tablet (12.5 mg total) in the evening. Take with meals. 03/05/2024 Discontinued DULoxetine 20 mg delayed release oral capsule (10 sources) Serotonin and Norepinephrine Reuptake Inhibitor take 1 capsule by mouth once daily DULoxetine (Cymbalta) [address] capsule Take 20 mg by mouth Daily Do not crush or chew. Active furosemide 40 mg oral tablet (14 sources) Loop Diuretic Start: take 1 tablet by mouth twice daily Lasix 40 mg Tab 40 mg = 1 tab(s), Oral, BID, Refills(s) 0 Start Date: 03/15/23 Status: Ordered furosemide (Lasi x) 40 MG tablet 1 (one) time each day at the same time. Active take 2 tablets by mouth twice da lorin furosemide (LASIX) 20 mg tablet Take 2 tablets (40 mg total) by mouth 2 (two) times a day. Active hydrALAZINE hydrochloride 50 mg oral tablet (13 sources) Arteriolar Vasodilator take 1 tablet by mouth in the morning hydrALAZINE (Apresoline) 50 MG tablet Take 50 mg by mouth in the morning and 50 mg in the evening. Active hydroxychloroquine sulfate 200 mg oral tablet (2 sources) Antimalarial, Antirheumatic Agent Start: 2022 End: 2023 take 1 tablet by mouth once daily hydroxychloroquine 200 mg Tab 200 mg = 1 tab(s), Oral, Daily, Refills(s) 0 Start Date: 03/28/23 Status: Ordered hyoscyamine sulfate 0.125 mg oral tablet (13 sources) take 1 tablet by mouth twice daily as needed hyoscyamine (Anaspaz,Levsin) 0.125 MG tablet 1 Orally BID prn Active take 1 tablet under the tongue four times daily as needed hyoscyamine (LEVSIN) 0.125 mg SL tablet hyoscyamine 0.[address] 1 (ONE) TABLET UNDER THE TONGUE FOUR TIMES DAILY NEEDED Active levothyroxine sodium 0.05 mg oral tablet (3 sources) l-Thyroxine Start: 10-19-2024 levothyroxine (Synthroid, Levoxyl) 50 MCG tablet 50 mcg 10/19/2024 Active oxybutynin chloride 5 mg oral tablet (3 sources) Cholinergic Muscarinic Antagonist Start: 03-14-2023 End: 03-05-2024 take 1 tablet by mouth three times daily as needed oxybutynin 5 mg Tab 5 mg = 1 tab(s), Oral, TID, PRN for urinary discomfort, Refills(s) 0 Start Date: 03/15/23 Status: Ordered Start: 03-07-2023 End: 03-05-2024 take 1 tablet by mouth every twenty-four hours in the morning oxybutynin XL (DITROPAN-XL) 5 mg 24 hr tablet Indications: Urge incontinence of urine Take 1 tablet (5 mg total) by mouth in the morning. 90 tablet 3 03/07/2023 03/05/2024 Discontinued oxybutynin (Ditropan) 2.5 mg split tablet (11 sources) oxybutynin (Ditr opan) 2.5 mg split tablet if needed Active oxybutynin (Ditr opan) 2.5 mg split tablet Oxybutynin Active rOPINIRole 1 mg oral tablet (13 sources) Nonergot Dopamine Agonist take 1 tablet by mouth at bedtime rOPINIRole (Requip) 1 MG tablet Take 1 mg by mouth at bedtime Active Completed/Discontinued Medications Medication Drug Class(es) Dates Sig (Normalized) Sig (Original) celecoxib 100 mg oral capsule (1 source) Nonsteroidal Anti-inflammatory Drug End: take 1 capsule by mouth in the morning celecoxib (CeleBREX) 100 mg capsule Take 1 capsule (100 mg total) by mouth in the morning. 03/05/2024 Discontinued 1 ml methylPREDNISolone acetate 40 mg/ml injection (4 sources) Corticosteroid Start: End: methylPREDNISolone acetate (DEPO-Medrol) injection 40 mg Start: 10-30-2024 End: 10-30-2024 40 mg, Intra-articular, Once PRN Procedure, Starting on Mon10/30/24 at 1747, For 1 dose potassium chloride 10 meq oral tablet (5 sources) Start: 03-15-2023 take 1 tablet by mouth twice daily potassium chloride 10 mEq ER Tab 10 mEq = 1 tab(s), Oral, BID, Refills(s) 0 Start Date: 03/15/23 Status: Ordered End: 09-03-2024 take 1 tablet by mouth once daily potassium chloride CR (Klor-Con M10) 10 MEQ ER tablet Take 1 tablet by mouth Daily 09/03/2024 Discontinued (Med list cleanup) End: 03-05-2024 potassium chloride (K-TAB,KL OR-CON) 10 MEQ CR tablet Take 1 tablet (10 mEq total) by mouth in the morning. 03/05/2024 Discontinued triamcinolone acetonide 1 mg/ml topical cream (1 source) Corticosteroid End: 03-05-2024 triamcinolone (KENALOG) 0.1 % cream Apply 1 Application topically in the morning and 1 Application before bedtime. 03/05/2024 Discontinued Problems Active Problems Problem Classification Problem Date Documented Da te Episodic/Chronic Acquired foot deformities (11 sources) Acquired hallux valgus; 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: [Hallux valgus (acquired), unspecified foot] Onset: 03-28-2023 03-28-2023 Chronic Cancer of prostate (6 sources) Malignant neoplasm of prostate; 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: [Malignant tumor of prostate] Onset: 09-06-2016 03-05-2024 Chronic Cancer of prostate (1 source) History of malignant neoplasm of prostate 03-15-2023 Episodic Cardiac dysrhythmias (2 sources) Atrial fibrillation; 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: [Premature beats] 03-15-2023 Chronic Congestive heart failure; nonhypertensive (1 source) Diastolic heart failure 03-15-2023 Chronic Coronary atherosclerosis and other heart disease (3 sources) Coronary arteriosclerosis; 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: [Atherosclerotic heart disease of [place] coronary artery without angina pectoris] Onset: 12-13-2023 03-15-2023 Chronic Disorders of lipid metabolism (4 sources) Hyperlipidemia, unspecified; 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: [HYPERLIPIDEMIA UNSPECIFIED] Onset: 06-29-2022 Chronic Essential hypertension (3 sources) Hypertensive disorder; 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: [Essential (primary) hypertension] Onset: 05-11-2023 03-15-2023 Chronic Genitourinary symptoms and ill-defined conditions (2 sources) Urge incontinence of urine; 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: [Urge incontinence] Onset: 05-23-2017 09-06-2022 Chronic Malaise and fatigue (2 sources) Asthenia; 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: [Weakness] 09-09-2024 Episodic Osteoarthritis (20 sources) Primary generalized (osteo)arthritis; 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: [Arthritis of left hip] Onset: 12-10-2022 Chronic Other aftercare (1 source) Other press tender long goods (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 therapy; 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: [OTH ACTIVITIES COUNSELOR CURRENT DRUG THERAPY] Onset: 12-14-2022 Episodic Other aftercare (2 sources) Long-term current use of anticoagulant; 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: [alf (current) use of anticoagulants] Onset: 03-28-2023 Episodic Other and unspecified benign neoplasm (3 sources) History of polyp of colon; 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: [Personal history of colonic polyps] Onset: 03-28-2023 Episodic Other connective tissue disease (11 sources) Hip joint prosthesis present; 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: [Presence of right artificial hip joint] Onset: 03-28-2023 03-28-2023 Chronic Other connective tissue disease (4 sources) Tear of right rotator cuff; 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: [Unspecified rotator cuff tear or rupture of right shoulder, not specified as traumatic] 10-30-2024 Episodic Other nervous system disorders (11 sources) Difficulty walking; 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: [Difficulty in walking, not elsewhere classified] Onset: 03-28-2023 03-28-2023 Chronic Other nervous system disorders (4 sources) Idiopathic peripheral neuropathy; 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: [Hereditary and idiopathic neuropathy, unspecified] 09-03-2024 Chronic Other nervous system disorders (4 sources) Numbness and tingling sensation of skin; 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: [Anesthesia of skin] 09-03-2024 Episodic Other non-traumatic joint disorders (2 sources) Chronic pain of right upper limb; 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: [Pain in right shoulder] 10-30-2024 Episodic Other nutritional; endocrine; and metabolic disorders (1 source) Body mass index 30+ - obesity 03-28-2023 Chronic Other nutritional; endocrine; and metabolic disorders (1 source) Morbid obesity 03-28-2023 Chronic Other nutritional; endocrine; and metabolic disorders (1 source) Obesity 03-15-2023 Chronic Other nutritional; endocrine; and metabolic disorders (2 sources) Body mass index 40+ - severely obese; 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: [Body mass index (BMI) 40.0-44.9, adult] Onset: 10-24-2017 10-24-2017 Chronic Residual codes; unclassified (1 source) Edema of lower extremity 03-15-2023 Episodic Spondylosis; intervertebral disc disorders; other back problems (1 source) Cervical disc disorder 03-15-2023 Chronic Spondylosis; intervertebral disc disorders; other back problems (4 sources) Low back pain; 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: [Low back pain at multiple sites] 09-09-2024 Episodic Unclassified (2 sources) Longstanding persistent atrial fibrillation; 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: [Longstanding persistent atrial fibrillation] Onset: 11-27-2023 Past or Other Problems Problem Classification Problem Date Documented Date Episodic/Chronic Complications of surgical procedures or medical care (2 sources) Hypotension due to drugs; 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: [Hypotension due to drugs] Onset: 11-27-2023 Episodic Diabetes mellitus without complication (1 source) Other abnormal glucose; 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: [OTHER ABNORMAL GLUCOSE] Onset: 07-03-2022 Episodic Genitourinary symptoms and ill-defined conditions (2 sources) Gross hematuria; 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: [Gross hematuria] Onset: 11-27-2023 Episodic Mycoses (11 sources) Onychomycosis due to dermatophyte ; 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: [Tinea unguium] Onset: 03-28-2023 03-28-2023 Episodic Other connective tissue disease (2 sources) Repeated falls; 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: [Repeated falls] Onset: 11-27-2023 Episodic Other diseases of veins and lymphatics (11 sources) Peripheral venous insufficiency; 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: [Venous insufficiency (chronic) (peripheral)] Onset: 03-28-2023 03-28-2023 Episodic Other male genital disorders (2 sources) Disorder of male genital organ; 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: [Hydrocele, unspecified] Onset: 07-10-2018 11-09-2020 Episodic Other screening for suspected conditions (not mental disorders or infectious disease) (1 source) Encounter for screening for malignant neoplasm of prostate; 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: [ENC SCREEN MALIG NEOPLASM PROSTATE] Onset: 07-03-2022 Episodic Results Test Name Value Interpretation Reference Range Facility No Panel Informationon 10-30 Padma Lau NP 10/30/2024 5:53 PM L Inj/Asp: R subacromial bursa on 10/30/2024 5:47 PM Indications: pain Details: 21 G needle, ultrasound-guided lateral approach Medications: 40 mg methylPREDNISolone acetate 40 MG/ML Outcome: tolerated well, no immediate complications Site cleaned with isopropyl alcohol. Procedure, treatment alternatives, risks and benefits explained, specific risks discussed. Consent was given by the patient. 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 [facility] - NervesOrdered By: Sergo Saab on 09-23-2024 [facility] Work Phone: ALL THYROID STIM HORMONEon 1 11-20-2023 Interpretation and review of laboratory results Abnormal [facility] TSH Qn 4.817 m[IU]/L High [facility] Office Visiton 08-28-2024 Follow-up visit [id number] Oscar Cox 1945 M Date Provider Department Center 08/28/2024 SHILOH SANTACRUZ Family History Family history unknown: Yes Level of Service:28782 IN OFFICE/OUTPATIENT ESTABLISHED LOW MDM 20 MIN [facility] 04-08-2024 36 Regarding stress rose t performed [...] is currently not scheduled for any surgery. [facility] 3603-07-2024 36 PT INFIRMED AND ORDE R SENT Normal [facility] Office Visiton 02-19-2024 Follow-up visit [id number] Oscar Cox 1945 Date Provider Department Center 02/19/2024 SHILOH SANTACRUZ Hos Family History Family history unknown: Yes Level of Service:69443 IN OFFICE/OUTPATIENT ESTABLISHED LOW MDM 20 MIN Normal [facility] Office [facility] 12-13-2023 Follow-up visit [id number] BrookeOscar Morton 1945 M [facility] Provider Department Center 12/13/2023 NIKKIREBECCA SHILOH SHE [facility] Family History Family history unknown: Yes Level of Service:20495 IN OFFICE/OUTPATIENT ESTABLISHED MOD MDM 30 MIN Normal [facility] Office Vis[facility] 11-27-2023 Follow-up visit [id number] BrookeOscar Morton 1945 [facility] Provider Department Center 11/27/2023 JONATHAN GALAVIZ SHE [facility] Family History Family history unknown: Yes Level of Service:68431 IN OFFICE/OUTPATIENT ESTABLISHED MOD MDM 30 MIN Normal [facility]-Way Recordson 07-04 Half-Way Records [id number] CD:127 [facility] Reminderson 05-10-2023 Reminders - From: Pennie Bose LPN To: N - Clinical; Sent: 05/10/2023 10:13:27 EDT Show up: 03/27/2028 07:00:00 EDT Subject: colonoscopy recall Due Date/Time: 04/26/2028 07:00:00 EDT Reminder/Recall Patient due for surveillance colonoscopy 04/26/2028. [facility] Pathology Noteon 05-03-2023 Pathology Note [id number] 0CD:127 [facility] Outside Colonoscopyon 2022 Outside Colonoscopy [id number] 0CD:127 [facility] Pre-Certification Formon Pre-Certification Form [id number]. 00CD:127 Normal [facility] Consent for Procedure/Surger yon 03-29-2023 Consent for Procedure/Surgery [id number]#[id number] 0CD:127 Normal [facility] Ambulatory Visit Summaryon 0 03-28-2023 Ambulatory [...] history of colonic polyps Premature beats Normal [facility] CBC AUTO DIFFon 03-01-2023 BASO # 0.0 103/ul Normal 0.0-0.1 [facility] Comment on above: Performed By: #### D ATCBC #### [facility] [address] [address] [address] Power Covarrubias Basophils/100 WBC (Bld) 0.7 % Normal 0.2-2.0 [facility] Comment on above: Performed By: #### D ATCBC #### [facility] [address] [place] [address] Dr. Power Covarrubias EO # 0.1 103/ul Normal 0.0-0.7 [facility] Comment on above: Performed By: #### D ATCBC #### [facility] [address] [address] [address] Power Covarrubias Eosinophils/100 WBC (Bld) 1.8 % Normal 0.9-7.0 [facility] Comment on above: Performed By: #### D ATCBC #### [facility] [address] [place] [address] Dr. Power Covarrubias Erythrocyte distribution width (RBC) [Ratio] 13.3 % Normal 11.0-15.0 [facility] Comment on above: Performed By: #### D ATCBC #### [facility] [address] [place] [address] Dr. Power Covarrubias Hematocrit (Bld) [Volume fraction] 40.7 % Critically low 42.0-54.0 [facility] Comment on above: Performed By: #### D ATCBC #### [facility] [address] [place] [address] Dr. Power Covarrubias Hemoglobin (Bld) [Mass/Vol] 12.9 g/dL Critically low 14.0-18.0 [facility] Comment on above: Performed By: #### D ATCBC #### [facility] [address] [address] [address] Power Covarrubias IG # 0.01 10e3/ul Normal 0.00-0.03 [facility] Comment on above: Performed By: #### D ATCBC #### [facility] [address] [address] [address] Power Covarrubias IG % 0.2 % Normal 0.0-0.5 [facility] Comment on above: Performed By: #### D ATCBC #### [facility] [address] [address] [address] Power Covarrubias LYMPH # 0.7 103/ul Critically low 1.2-3.8 [facility] Comment on above: Performed By: #### D ATCBC #### [facility] [address] [address] [address] Power Covarrubias Lymphocytes/100 WBC (Bld) 16.3 % Critically low 20.5-60.0 [facility] Comment on above: Performed By: #### D ATCBC #### [facility] [address] [address] [address] Power Covarrubias MCH (RBC) [Entitic mass] 29.6 pg Normal 25.9-34.0 [facility] Comment on above: Performed By: #### D ATCBC #### [facility] [address] [address] [address] Power Covarrubias MCHC (RBC) [Mass/Vol] 31.7 g/dL Normal 29.9-35.2 [facility] Comment on above: Performed By: #### D ATCBC #### [facility] [address] [address] [address] Power Covarrubias MCV (RBC) [Entitic vol] 93.3 fL Normal 80.0-94.0 [facility] Comment on above: Performed By: #### D ATCBC #### [facility] [address] [address] [address] Power Covarrubias MONO # 0.3 103/ul Normal 0.3-0.8 [facility] Comment on above: Performed By: #### D ATCBC #### [facility] [address] [address] [address] Power Covarrubias Monocytes/100 WBC (Bld) 7.5 % Normal 1.7-12.0 [facility] Comment on above: Performed By: #### D ATCBC #### [facility] [address] [address] [address] Power Covarrubias NEUT # 3.4 103/ul Normal 1.4-6.5 [facility] Comment on above: Performed By: #### D ATCBC #### [facility] [address] [place] [address] Dr. Power Covarrubias Neutrophils/100 WBC (Bld) 73.5 % Normal 43.0-75.0 [facility] Comment on above: Performed By: #### D ATCBC #### [facility] [address] [place] [address] Dr. Power Covarrubias Platelet mean volume (Bld) [Entitic vol] 9.9 fL Normal 9.5-13.5 [facility] Comment on above: Performed By: #### D ATCBC #### [facility] [address] [place] [address] Dr. Power Covarrubias PLT 198 103/ul Normal 150-450 [facility] Comment on above: Performed By: #### D ATCBC #### [facility] [address] [place] [address] Dr. Power Covarrubias RBC 4.36 106/ul Critically low 4.70-6.10 [facility] Comment on above: Performed By: #### D ATCBC #### [facility] [address] [address] [address] Power Covarrubias WBC 4.6 103/ul Normal 4.0-11.0 [facility] Comment on above: Performed By: #### D ATCBC #### [facility] [address] [place] [address] Dr. Power Covarrubias BRE - LIPID PROFILEon 2022 CHOL-HDL RATIO NORM SEE BELOW Normal [facility] Comment on above: Result Comment: 3.3 - 4.4 LOW RISK 4.4 - 7.1 AVERAGE RISK 7.1 - 11.0 MODERATE RISK >11.0 HIGH RISK Performed By: #### D ATLIPI, DATPSA, DATBMP #### [facility] [address] [place] [address] Dr. Power Covarrubias Cholesterol.total/Ch olesterol in HDL [Mass ratio] 2.2 {ratio} Normal [facility] Comment on above: Performed By: #### D ATLIPI, DATPSA, DATBMP #### [facility] [address] [place] [address] Dr. Power Covarrubias BRE- BMP WITH LIPIDon 2022 Anion gap [Moles/Vol] 12.8 mmol/L Normal [facility] Comment on above: Performed By: #### D ATLIPI, DATPSA, DATBMP #### [facility] [address] [place] [address] Dr. Power Covarrubias Calcium [Mass/Vol] 9.3 mg/dL Normal 8.5-10.1 [facility] Comment on above: Performed By: #### D ATLIPI, DATPSA, DATBMP #### [facility] [address] [place] [address] Dr. Power Covarrubias Chloride [Moles/Vol] 107 mmol/L Normal 98-107 [facility] Comment on above: Performed By: #### D ATLIPI, DATPSA, DATBMP #### [facility] [address] [place] [address] Dr. Power Covarrubias Cholesterol [Mass/Vol] 123 mg/dL Normal <=200 [facility] Comment on above: Performed By: #### D ATLIPI, DATPSA, DATBMP #### [facility] [address] [place] [address] Dr. Power Covarrubias Cholesterol in HDL [Mass/Vol] 56 mg/dL Normal 40-60 [facility] Comment on above: Performed By: #### D ATLIPI, DATPSA, DATBMP #### [facility] [address] [address] [address] Power Covarrubias Cholesterol in LDL [Mass/Vol] 52.0 mg/dL Normal [facility] Comment on above: Performed By: #### D ATLIPI, DATPSA, DATBMP #### [facility] [address] [place] [address] Dr[address] Power Covarrubias CO2 [Moles/Vol] 28.7 mmol/L Normal 21.0-32.0 [facility] Comment on above: Performed By: #### D ATLIPI, DATPSA, DATBMP #### [facility] [address] [address] [address] Power Covarrubias Creatinine [Mass/Vol] 0.93 mg/dL Normal 0.70-1.30 [facility] Comment on above: Performed By: #### D ATLIPI, DATPSA, DATBMP #### [facility] [address] [place] [address] Dr. Power Covarrubias EGFR-AF LIBYAN >60 Normal >=60 [facility] Comment on above: Performed By: #### D ATLIPI, DATPSA, DATBMP #### [facility] [address] [place] [address] Dr. Power Covarrubias EGFR-NON AF LIBYAN >60 Normal >=60 [facility] Comment on above: Performed By: #### D ATLIPI, DATPSA, DATBMP #### [facility] [address] [address] [address] Power Covarrubias Glucose [Mass/Vol] 97 mg/dL Normal 74-106 [facility] Comment on above: Performed By: #### D ATLIPI, DATPSA, DATBMP #### [facility] [address] [place] [address] Dr. Power Covarrubias HDL NORMAL > or = 60 mg/dl - LO W CARDIOVASCULAR RISK <40 mg/dl - HIGH CARDIOVASCULAR RISK Normal [facility] Comment on above: Performed By: #### D ATLIPI, DATPSA, DATBMP #### [facility] [address] [place] [address] Dr. Power Covarrubias LDL CALC NORMAL SEE BELOW Normal [facility] Comment on above: Result Comment: <100 mg/dl OPTIMAL 100 - 129 mg/dl NEAR OR ABOVE OPTIMAL 130 - 159 mg/dl BORDERLINE HIGH 160 - 189 mg/dl HIGH >190 mg/dl VERY HIGH Performed By: #### D ATLIPI, DATPSA, DATBMP #### [facility] [address] [address] [address] Power Covarrubias Potassium [Moles/Vol] 3.5 mmol/L Normal 3.5-5.1 [facility] Comment on above: Performed By: #### D ATLIPI, DATPSA, DATBMP #### [facility] [address] [address] [address] Power Covarrubias Sodium [Moles/Vol] 145 mmol/L Normal 136-145 [facility] Comment on above: Performed By: #### D ATLIPI, DATPSA, DATBMP #### [facility] [address] [address] [address] Power Covarrubias Triglyceride [Mass/Vol] 75 mg/dL Normal <=150 [facility] Comment on above: Performed By: #### D ATLIPI, DATPSA, DATBMP #### [facility] [address] [address] [address] Power Covarrubias Urea nitrogen [Mass/Vol] 11.0 mg/dL Normal 7.0-18.0 [facility] Comment on above: Performed By: #### D ATLIPI, DATPSA, DATBMP #### [facility] [address] [address] [address] Power Covarrubias Urea nitrogen/Creatinine [Mass ratio] 11.8 mg/mg Normal [facility] Comment on above: Performed By: #### D ATLIPI, DATPSA, DATBMP #### [facility] [address] [place] [address] Dr. Power Covarrubias VLDL CALC 15.0 mg/dL Normal [facility] Comment on above: Performed By: #### D ATLIPI, DATPSA, DATBMP #### [facility] [address] [place] [address] Dr. Power Covarrubias GLYCOHEMOGLOBIN A1Con 2022 ADA RECOMMENDATION SEE BELOW Normal [facility] Comment on above: Result Comment: ADA RECOMMENDED LIMIT 4.0 - 6.0 ADA THERAPEUTIC TARGET < 7.0 ACTION SUGGESTED > 7.0 Performed By: #### D ATLIPI, DATPSA, DATBMP #### [facility] [address] [place] [address] Dr. Power Covarrubias Glucose [Mass/Vol] 105 mg/dL Normal [facility] Comment on above: Performed By: #### D ATLIPI, DATPSA, DATBMP #### [facility] [address] [place] [address] Dr. Power Covarrubias HbA1c (Bld) [Mass fraction] 5.3 % Normal 4.5-6.2 [facility] Comment on above: Performed By: #### D ATLIPI, DATPSA, DATBMP #### [facility] [address] [place] [address] Dr. Power Covarrubias CBC AUTO DIFFon 12-10-2022 BASO # 0.0 103/ul Normal 0.0-0.1 [facility] Comment on above: Performed By: #### D ATLIPI, DATPSA, DATBMP #### [facility] [address] [place] [address] Dr. Power Covarrubias Basophils/100 WBC (Bld) 0.4 % Normal 0.2-2.0 [facility] Comment on above: Performed By: #### D ATLIPI, DATPSA, DATBMP #### [facility] [address] [place] [address] Dr. Power Covarrubias EO # 0.2 103/ul Normal 0.0-0.7 [facility] Comment on above: Performed By: #### D ATLIPI, DATPSA, DATBMP #### [facility] [address] [place] [address] Dr. Power Covarrubias Eosinophils/100 WBC (Bld) 3.6 % Normal 0.9-7.0 [facility] Comment on above: Performed By: #### D ATLIPI, DATPSA, DATBMP #### [facility] [address] [place] [address] Dr. Power Covarrubias Erythrocyte distribution width (RBC) [Ratio] 13.5 % Normal 11.0-15.0 [facility] Comment on above: Performed By: #### D ATLIPI, DATPSA, DATBMP #### [facility] [address] [place] [address] Dr. Power Covarrubias Hematocrit (Bld) [Volume fraction] 37.5 % Critically low 42.0-54.0 [facility] Comment on above: Performed By: #### D ATLIPI, DATPSA, DATBMP #### [facility] [address] [place] [address] Dr. Power Covarrubias Hemoglobin (Bld) [Mass/Vol] 12.0 g/dL Critically low 14.0-18.0 [facility] Comment on above: Performed By: #### D ATLIPI, DATPSA, DATBMP #### [facility] [address] [place] [address] Dr. Power Covarrubias IG # 0.02 10e3/ul Normal 0.00-0.03 [facility] Comment on above: Performed By: #### D ATLIPI, DATPSA, DATBMP #### [facility] [address] [place] [address] Dr. Power Covarrubias IG % 0.4 % Normal 0.0-0.5 [facility] Comment on above: Performed By: #### D ATLIPI, DATPSA, DATBMP #### [facility] [address] [place] [address] Dr. Power Covarrubias LYMPH # 0.9 103/ul Critically low 1.2-3.8 [facility] Comment on above: Performed By: #### D ATLIPI, DATPSA, DATBMP #### [facility] [address] [place] [address] Dr. Power Covarrubias Lymphocytes/100 WBC (Bld) 17.7 % Critically low 20.5-60.0 [facility] Comment on above: Performed By: #### D ATLIPI, DATPSA, DATBMP #### [facility] [address] [place] [address] Dr. Power Covarrubias MANUAL DIFF REQ NO Normal [facility] Comment on above: Performed By: #### D ATLIPI, DATPSA, DATBMP #### [facility] [address] [place] [address] Dr. Power Covarrubias MCH (RBC) [Entitic mass] 29.7 pg Normal 25.9-34.0 [facility] Comment on above: Performed By: #### D ATLIPI, DATPSA, DATBMP #### [facility] [address] [place] [address] Dr. Power Covarrubias MCHC (RBC) [Mass/Vol] 32.0 g/dL Normal 29.9-35.2 [facility] Comment on above: Performed By: #### D ATLIPI, DATPSA, DATBMP #### [facility] [address] [place] [address] Dr. Power Covarrubias MCV (RBC) [Entitic vol] 92.8 fL Normal 80.0-94.0 [facility] Comment on above: Performed By: #### D ATLIPI, DATPSA, DATBMP #### [facility] [address] [place] [address] Dr. Power Covarrubias MONO # 0.6 103/ul Normal 0.3-0.8 [facility] Comment on above: Performed By: #### D ATLIPI, DATPSA, DATBMP #### [facility] [address] [place] [address] Dr. Power Covarrubias Monocytes/100 WBC (Bld) 11.1 % Normal 1.7-12.0 [facility] Comment on above: Performed By: #### D ATLIPI, DATPSA, DATBMP #### [facility] [address] [place] [address] Dr. Power Covarrubias NEUT # 3.6 103/ul Normal 1.4-6.5 [facility] Comment on above: Performed By: #### D ATLIPI, DATPSA, DATBMP #### [facility] [address] [place] [address] Dr. Power Covarrubias Neutrophils/100 WBC (Bld) 66.8 % Normal 43.0-75.0 [facility] Comment on above: Performed By: #### D ATLIPI, DATPSA, DATBMP #### [facility] [address] [address] [address] Power Covarrubias Platelet mean volume (Bld) [Entitic vol] 9.8 fL Normal 9.5-13.5 [facility] Comment on above: Performed By: #### D ATLIPI, DATPSA, DATBMP #### [facility] [address] [place] [address] Dr. Power Covarrubias PLT 199 103/ul Normal 150-450 [facility] Comment on above: Performed By: #### D ATLIPI, DATPSA, DATBMP #### [facility] [address] [place] [address] Dr. Power Covarrubias RBC 4.04 106/ul Critically low 4.70-6.10 [facility] Comment on above: Performed By: #### D ATLIPI, DATPSA, DATBMP #### [facility] [address] [place] [address] Dr. Power Covarrubias WBC 5.3 103/ul Normal 4.0-11.0 [facility] Comment on above: Performed By: #### D ATLIPI, DATPSA, DATBMP #### [facility] [address] [place] [address] Dr. Power Covarrubias PROF 14(COMP METB)on 023 Albumin [Mass/Vol] 3.3 g/dL Critically low 3.4-5.0 [facility] Comment on above: Performed By: #### C MP #### [facility] [address] [place] [address] Dr. Power Covarrubias Albumin/Globulin [Mass ratio] 0.9 {ratio} Normal [facility] Comment on above: Performed By: #### C MP #### [facility] [address] [address] [address] Power Covarrubias ALP [Catalytic activity/Vol] 99 U/L Normal 46-116 [facility] Comment on above: Performed By: #### C MP #### [facility] [address] [address] [address] Power Covarrubias ALT [Catalytic activity/Vol] 17 U/L Normal 16-63 [facility] Comment on above: Performed By: #### C MP #### [facility] [address] [address] [address] Power Covarrubias Anion gap [Moles/Vol] 11.6 mmol/L Normal [facility] Comment on above: Performed By: #### C MP #### [facility] [address] [place] [address] Dr. Power Covarrubias AST [Catalytic activity/Vol] 15 U/L Normal 15-37 [facility] Comment on above: Performed By: #### C MP #### [facility] [address] [place] [address] Dr. Power Covarrubias Bilirubin [Mass/Vol] 0.6 mg/dL Normal 0.2-1.0 [facility] Comment on above: Performed By: #### C MP #### [facility] [address] [place] [address] Dr. Power Covarrubias Calcium [Mass/Vol] 9.4 mg/dL Normal 8.5-10.1 [facility] Comment on above: Performed By: #### C MP #### [facility] [address] [place] [address] Dr. Power Covarrubias Chloride [Moles/Vol] 107 mmol/L Normal 98-107 [facility] Comment on above: Performed By: #### C MP #### [facility] [address] [place] [address] Dr. Power Covarrubias CO2 [Moles/Vol] 29.2 mmol/L Normal 21.0-32.0 [facility] Comment on above: Performed By: #### C MP #### [facility] [address] [address] [address] Power Covarrubias Creatinine [Mass/Vol] 0.87 mg/dL Normal 0.70-1.30 [facility] Comment on above: Performed By: #### C MP #### [facility] [address] [address] [address] Power Covarrubias EGFR-AF LIBYAN >60 Normal >=60 [facility] Comment on above: Performed By: #### C MP #### [facility] [address] [address] [address] Power Covarrubias EGFR-NON AF LIBYAN >60 Normal >=60 [facility] Comment on above: Performed By: #### C MP #### [facility] [address] [place] [address] Dr. Power Covarrubias Globulin (S) [Mass/Vol] 3.6 g/dL Normal [facility] Comment on above: Performed By: #### C MP #### [facility] [address] [address] [address] Power Covarrubias Glucose [Mass/Vol] 107 mg/dL Critically high 74-106 [facility] Comment on above: Performed By: #### C MP #### [facility] [address] [place] [address] Dr. Power Covarrubias Potassium [Moles/Vol] 3.8 mmol/L Normal 3.5-5.1 [facility] Comment on above: Performed By: #### C MP #### [facility] [address] [place] [address] Dr. Power Covarrubias Protein [Mass/Vol] 6.9 g/dL Normal 6.4-8.2 [facility] Comment on above: Performed By: #### C MP #### [facility] [address] [place] [address] Dr. Power Covarrubias Sodium [Moles/Vol] 144 mmol/L Normal 136-145 [facility] Comment on above: Performed By: #### C MP #### [facility] [address] [place] [address] Dr. Power Covarrubias Urea nitrogen [Mass/Vol] 12.0 mg/dL Normal 7.0-18.0 [facility] Comment on above: Performed By: #### C MP #### [facility] [address] [place] [address] Dr. Power Covarrubias Urea nitrogen/Creatinine [Mass ratio] 13.8 mg/mg Normal [facility] Comment on above: Performed By: #### C MP #### [facility] [address] [place] [address] Dr. Power Covarrubias CBC AUTO DIFFon 08-31-2022 BASO # 0.0 103/ul Normal 0.0-0.1 [facility] Comment on above: Performed By: #### D ATLIPI, DATPSA, DATBMP #### [facility] [address] [place] [address] Dr. Power Covarurbias Basophils/100 WBC (Bld) 0.7 % Normal 0.2-2.0 [facility] Comment on above: Performed By: #### D ATLIPI, DATPSA, DATBMP #### [facility] [address] [place] [address] Dr. Power Covarrubias EO # 0.2 103/ul Normal 0.0-0.7 [facility] Comment on above: Performed By: #### D ATLIPI, DATPSA, DATBMP #### [facility] [address] [place] [address] Dr. Power Covarrubias Eosinophils/100 WBC (Bld) 3.5 % Normal 0.9-7.0 [facility] Comment on above: Performed By: #### D ATLIPI, DATPSA, DATBMP #### [facility] [address] [place] [address] Dr. Power Covarrubias Erythrocyte distribution width (RBC) [Ratio] 13.2 % Normal 11.0-15.0 [facility] Comment on above: Performed By: #### D ATLIPI, DATPSA, DATBMP #### [facility] [address] [place] [address] Dr. Power Covarrubias Hematocrit (Bld) [Volume fraction] 39.3 % Critically low 42.0-54.0 [facility] Comment on above: Performed By: #### D ATLIPI, DATPSA, DATBMP #### [facility] [address] [place] [address] Dr. Power Covarrubias Hemoglobin (Bld) [Mass/Vol] 12.9 g/dL Critically low 14.0-18.0 [facility] Comment on above: Performed By: #### D ATLIPI, DATPSA, DATBMP #### [facility] [address] [place] [address] Dr. Power Covarrubias IG # 0.02 10e3/ul Normal 0.00-0.03 [facility] Comment on above: Performed By: #### D ATLIPI, DATPSA, DATBMP #### [facility] [address] [place] [address] Dr. Power Covarrubias IG % 0.4 % Normal 0.0-0.5 [facility] Comment on above: Performed By: #### D ATLIPI, DATPSA, DATBMP #### [facility] [address] [place] [address] Dr. Power Covarrubias LYMPH # 0.9 103/ul Critically low 1.2-3.8 [facility] Comment on above: Performed By: #### D ATLIPI, DATPSA, DATBMP #### [facility] [address] [place] [address] Dr. Power Covarrubias Lymphocytes/100 WBC (Bld) 16.4 % Critically low 20.5-60.0 [facility] Comment on above: Performed By: #### D ATLIPI, DATPSA, DATBMP #### [facility] [address] [place] [address] Dr. Power Covarrubias MCH (RBC) [Entitic mass] 30.7 pg Normal 25.9-34.0 [facility] Comment on above: Performed By: #### D ATLIPI, DATPSA, DATBMP #### [facility] [address] [place] [address] Dr. Power Covarrubias MCHC (RBC) [Mass/Vol] 32.8 g/dL Normal 29.9-35.2 [facility] Comment on above: Performed By: #### D ATLIPI, DATPSA, DATBMP #### [facility] [address] [place] [address] Dr. Power Covarrubias MCV (RBC) [Entitic vol] 93.6 fL Normal 80.0-94.0 [facility] Comment on above: Performed By: #### D ATLIPI, DATPSA, DATBMP #### [facility] [address] [place] [address] Dr. Power Covarrubias MONO # 0.5 103/ul Normal 0.3-0.8 [facility] Comment on above: Performed By: #### D ATLIPI, DATPSA, DATBMP #### [facility] [address] [place] [address] Dr. Power Covarrubias Monocytes/100 WBC (Bld) 9.0 % Normal 1.7-12.0 [facility] Comment on above: Performed By: #### D ATLIPI, DATPSA, DATBMP #### [facility] [address] [place] [address] Dr. Power Covarrubias NEUT # 3.8 103/ul Normal 1.4-6.5 [facility] Comment on above: Performed By: #### D ATLIPI, DATPSA, DATBMP #### [facility] [address] [place] [address] Dr. Power Covarrubias Neutrophils/100 WBC (Bld) 70.0 % Normal 43.0-75.0 [facility] Comment on above: Performed By: #### D ATLIPI, DATPSA, DATBMP #### [facility] [address] [place] [address] Dr. Power Covarrubias Platelet mean volume (Bld) [Entitic vol] 9.9 fL Normal 9.5-13.5 [facility] Comment on above: Performed By: #### D ATLIPI, DATPSA, DATBMP #### [facility] [address] [place], [place] [id number] Dr. Power Covarrubias PLT 195 103/ul Normal 150-450 [facility] Comment on above: Performed By: #### D ATLIPI, DATPSA, DATBMP #### [facility] [address] [place] [address] Dr. Power Covarrubias RBC 4.20 106/ul Critically low 4.70-6.10 [facility] Comment on above: Performed By: #### D ATLIPI, DATPSA, DATBMP #### [facility] [address] [place] [address] Dr. Power Covarrubias WBC 5.4 103/ul Normal 4.0-11.0 [facility] Comment on above: Performed By: #### D ATLIPI, DATPSA, DATBMP #### [facility] [address] [place] [address] Dr. Power Covarrubias BRE- BMP WITH LIPIDon 2021 Anion gap [Moles/Vol] 10.8 mmol/L Normal [facility] Comment on above: Performed By: #### D ATLIPI, DATPSA, DATBMP #### [facility] [address] [place] [address] Dr. Power Covarrubias Calcium [Mass/Vol] 9.3 mg/dL Normal 8.5-10.1 [facility] Comment on above: Performed By: #### D ATLIPI, DATPSA, DATBMP #### [facility] [address] [place] [address] Dr. Power Covarrubias Chloride [Moles/Vol] 105 mmol/L Normal 98-107 [facility] Comment on above: Performed By: #### D ATLIPI, DATPSA, DATBMP #### [facility] [address] [place] [address] Dr. Power Covarrubias Cholesterol [Mass/Vol] 123 mg/dL Normal <=200 [facility] Comment on above: Performed By: #### D ATLIPI, DATPSA, DATBMP #### [facility] [address] [place] [address] Dr. Power Covarrubias Cholesterol in HDL [Mass/Vol] 51 mg/dL Normal 40-60 [facility] Comment on above: Performed By: #### D ATLIPI, DATPSA, DATBMP #### [facility] [address] [address] [address] Power Covarrubias Cholesterol in LDL [Mass/Vol] 56.0 mg/dL Normal [facility] Comment on above: Performed By: #### D ATLIPI, DATPSA, DATBMP #### [facility] [address] [address] [address] Power Covarrubias CO2 [Moles/Vol] 28.2 mmol/L Normal 21.0-32.0 [facility] Comment on above: Performed By: #### D ATLIPI, DATPSA, DATBMP #### [facility] [address] [address] [address] Power Covarrubias Creatinine [Mass/Vol] 0.86 mg/dL Normal 0.70-1.30 [facility] Comment on above: Performed By: #### D ATLIPI, DATPSA, DATBMP #### [facility] [address] [address] [address] Power Covarrubias EGFR-AF LIBYAN >60 Normal >=60 [facility] Comment on above: Performed By: #### D ATLIPI, DATPSA, DATBMP #### [facility] [address] [address] [address] Power Covarrubias EGFR-NON AF LIBYAN >60 Normal >=60 [facility] Comment on above: Performed By: #### D ATLIPI, DATPSA, DATBMP #### [facility] [address] [address] [address] Power Covarrubias Glucose [Mass/Vol] 90 mg/dL Normal 74-106 [facility] Comment on above: Performed By: #### D ATLIPI, DATPSA, DATBMP #### [facility] [address] [address] [address] Power Covarrubias HDL NORMAL > or = 60 mg/dl - LO W CARDIOVASCULAR RISK <40 mg/dl - HIGH CARDIOVASCULAR RISK Normal [facility] Comment on above: Performed By: #### D ATLIPI, DATPSA, DATBMP #### [facility] [address] [place] [address] Dr. Power Covarrubias LDL CALC NORMAL SEE BELOW Normal [facility] Comment on above: Result Comment: <100 mg/dl OPTIMAL 100 - 129 mg/dl NEAR OR ABOVE OPTIMAL 130 - 159 mg/dl BORDERLINE HIGH 160 - 189 mg/dl HIGH >190 mg/dl VERY HIGH Performed By: #### D ATLIPI, DATPSA, DATBMP #### [facility] [address] [place] [address] Dr. Power Covarrubias Potassium [Moles/Vol] 4.0 mmol/L Normal 3.5-5.1 [facility] Comment on above: Performed By: #### D ATLIPI, DATPSA, DATBMP #### [facility] [address] [place] [address] Dr. Power Covarrubias Sodium [Moles/Vol] 140 mmol/L Normal 136-145 [facility] Comment on above: Performed By: #### D ATLIPI, DATPSA, DATBMP #### [facility] [address] [place] [address] Dr. Power Covarrubias Triglyceride [Mass/Vol] 80 mg/dL Normal <=150 [facility] Comment on above: Performed By: #### D ATLIPI, DATPSA, DATBMP #### [facility] [address] [place] [address] Dr. Power Covarrubias Urea nitrogen [Mass/Vol] 14.0 mg/dL Normal 7.0-18.0 [facility] Comment on above: Performed By: #### D ATLIPI, DATPSA, DATBMP #### [facility] [address] [place] [address] Dr. Power Covarrubias Urea nitrogen/Creatinine [Mass ratio] 16.3 mg/mg Normal [facility] Comment on above: Performed By: #### D ATLIPI, DATPSA, DATBMP #### [facility] [address] [place] [address] Dr. Power Covarrubias VLDL CALC 16.0 mg/dL Normal [facility] Comment on above: Performed By: #### D ATLIPI, DATPSA, DATBMP #### [facility] [address] [place] [address] Dr. Power Covarrubias OCC BLD IMMUNO SCREENon 06-16 OCCULT BLOOD Negative Normal NEGATIVE [facility] Comment on above: Performed By: #### O BSCRN #### [facility] [address] [place] [address] Dr. Power Covarrubias T4 LABCORPon 06-30-2022 T4 [Mass/Vol] 9.2 ug/dL Normal 4.5-12.0 [facility] Comment on above: Performed By: #### D ATLIPI, DATPSA, DATBMP #### [facility] [address] [place] [address] Dr. Power Covarrubias CBC AUTO DIFFon 06-29-2022 BASO # 0.0 103/ul Normal 0.0-0.1 [facility] Comment on above: Performed By: #### D ATLIPI, DATPSA, DATBMP #### [facility] [address] [place] [address] Dr. Power Covarrubias Basophils/100 WBC (Bld) 0.5 % Normal 0.2-2.0 [facility] Comment on above: Performed By: #### D ATLIPI, DATPSA, DATBMP #### [facility] [address] [place] [address] Dr. Power Covarrubias EO # 0.1 103/ul Normal 0.0-0.7 [facility] Comment on above: Performed By: #### D ATLIPI, DATPSA, DATBMP #### [facility] [address] [place] [address] Dr. Power Covarrubias Eosinophils/100 WBC (Bld) 2.5 % Normal 0.9-7.0 [facility] Comment on above: Performed By: #### D ATLIPI, DATPSA, DATBMP #### [facility] [address] [place] [address] Dr. Power Covarrubias Erythrocyte distribution width (RBC) [Ratio] 13.4 % Normal 11.0-15.0 [facility] Comment on above: Performed By: #### D ATLIPI, DATPSA, DATBMP #### [facility] [address] [place] [address] Dr. Power Covarrubias Hematocrit (Bld) [Volume fraction] 38.1 % Critically low 42.0-54.0 [facility] Comment on above: Performed By: #### D ATLIPI, DATPSA, DATBMP #### [facility] [address] [place] [address] Dr. Power Covarrubias Hemoglobin (Bld) [Mass/Vol] 12.0 g/dL Critically low 14.0-18.0 [facility] Comment on above: Performed By: #### D ATLIPI, DATPSA, DATBMP #### [facility] [address] [place] [address] Dr. Power Covarrubias IG # 0.01 10e3/ul Normal 0.00-0.03 [facility] Comment on above: Performed By: #### D ATLIPI, DATPSA, DATBMP #### [facility] [address] [place] [address] Dr. Power Covarrubias IG % 0.2 % Normal 0.0-0.5 [facility] Comment on above: Performed By: #### D ATLIPI, DATPSA, DATBMP #### [facility] [address] [place] [address] Dr. Power Covarrubias LYMPH # 0.9 103/ul Critically low 1.2-3.8 [facility] Comment on above: Performed By: #### D ATLIPI, DATPSA, DATBMP #### [facility] [address] [place] [address] Dr. Power Covarrubias Lymphocytes/100 WBC (Bld) 15.5 % Critically low 20.5-60.0 [facility] Comment on above: Performed By: #### D ATLIPI, DATPSA, DATBMP #### [facility] [address] [place] [address] Dr. Power Covarrubias MANUAL DIFF REQ NO Normal [facility] Comment on above: Performed By: #### D ATLIPI, DATPSA, DATBMP #### [facility] [address] [place] [address] Dr. Power Covarrubias MCH (RBC) [Entitic mass] 30.2 pg Normal 25.9-34.0 [facility] Comment on above: Performed By: #### D ATLIPI, DATPSA, DATBMP #### [facility] [address] [place] [address] Dr. Power Covarrubias MCHC (RBC) [Mass/Vol] 31.5 g/dL Normal 29.9-35.2 [facility] Comment on above: Performed By: #### D ATLIPI, DATPSA, DATBMP #### [facility] [address] [place] [address] Dr. Power Covarrubias MCV (RBC) [Entitic vol] 96.0 fL Critically high 80.0-94.0 [facility] Comment on above: Performed By: #### D ATLIPI, DATPSA, DATBMP #### [facility] [address] [place] [address] Dr. Power Covarrubias MONO # 0.5 103/ul Normal 0.3-0.8 [facility] Comment on above: Performed By: #### D ATLIPI, DATPSA, DATBMP #### [facility] [address] [place] [address] Dr. Power Covarrubias Monocytes/100 WBC (Bld) 9.5 % Normal 1.7-12.0 [facility] Comment on above: Performed By: #### D ATLIPI, DATPSA, DATBMP #### [facility] [address] [place] [address] Dr. Power Covarrubias NEUT # 4.1 103/ul Normal 1.4-6.5 [facility] Comment on above: Performed By: #### D ATLIPI, DATPSA, DATBMP #### [facility] [address] [address] [address] Power Covarrubias Neutrophils/100 WBC (Bld) 71.8 % Normal 43.0-75.0 [facility] Comment on above: Performed By: #### D ATLIPI, DATPSA, DATBMP #### [facility] [address] [address] [address] Power Covarrubias Platelet mean volume (Bld) [Entitic vol] 9.8 fL Normal 9.5-13.5 [facility] Comment on above: Performed By: #### D ATLIPI, DATPSA, DATBMP #### [facility] [address] [address] [address] Power Covarrubias PLT 212 103/ul Normal 150-450 [facility] Comment on above: Performed By: #### D ATLIPI, DATPSA, DATBMP #### [facility] [address] [place] [address] Dr. Power Covarrubias RBC 3.97 106/ul Critically low 4.70-6.10 [facility] Comment on above: Performed By: #### D ATLIPI, DATPSA, DATBMP #### [facility] [address] [address] [address] Power Covarrubias WBC 5.7 103/ul Normal 4.0-11.0 [facility] Comment on above: Performed By: #### D ATLIPI, DATPSA, DATBMP #### [facility] [address] [place] [address] Dr. Power Covarrubias FREE T3on 06-29-2022 FREE T3 2.73 pg/mlL Normal 2.18-3.98 [facility] Comment on above: Performed By: #### D ATLIPI, DATPSA, DATBMP #### [facility] [address] [place] [address] Dr. Power Covarrubias GLYCOHEMOGLOBIN A1Con 2021 ADA RECOMMENDATION SEE BELOW Normal [facility] Comment on above: Result Comment: ADA RECOMMENDED LIMIT 4.0 - 6.0 ADA THERAPEUTIC TARGET < 7.0 ACTION SUGGESTED > 7.0 Performed By: #### A 1C #### [facility] [address] [address] [address] Power Covarrubias Glucose [Mass/Vol] 114 mg/dL Normal [facility] Comment on above: Performed By: #### A 1C #### [facility] [address] [address] [address] Power Covarrubias HbA1c (Bld) [Mass fraction] 5.6 % Normal 4.5-6.2 [facility] Comment on above: Performed By: #### A 1C #### [facility] [address] [address] [address] Power Covarrubias LIPID PROFILEon 06-29-2022 CHOL-HDL RATIO NORM SEE BELOW Normal [facility] Comment on above: Result Comment: 3.3 - 4.4 LOW RISK 4.4 - 7.1 AVERAGE RISK 7.1 - 11.0 MODERATE RISK >11.0 HIGH RISK Performed By: #### D ATLIPI DATPSA, DATBMP #### [facility] [address] [address] [address] Power Covarrubias Cholesterol [Mass/Vol] 110 mg/dL Normal <=200 [facility] Comment on above: Performed By: #### D ATLIPI DATPSA, DATBMP #### [facility] [address] [address] [address] Power Covarrubias Cholesterol in HDL [Mass/Vol] 47 mg/dL Normal 40-60 [facility] Comment on above: Performed By: #### D ATLIPI DATPSA, DATBMP #### [facility] [address] [address] [address] Power Covarrubias Cholesterol in LDL [Mass/Vol] 51.2 mg/dL Normal [facility] Comment on above: Performed By: #### D ATLIPI DATPSA, DATBMP #### [facility] [address] [address] [address] Power Covarrubias Cholesterol.total/Ch olesterol in HDL [Mass ratio] 2.3 {ratio} Normal [facility] Comment on above: Performed By: #### D ATLIPI, DATPSA, DATBMP #### [facility] [address] [address] [address] Power Covarrubias HDL NORMAL > or = 60 mg/dl - LO W CARDIOVASCULAR RISK <40 mg/dl - HIGH CARDIOVASCULAR RISK Normal [facility] Comment on above: Performed By: #### D ATLIPI, DATPSA, DATBMP #### [facility] [address] [address] [address] Power Covarrubias LDL CALC NORMAL SEE BELOW Normal [facility] Comment on above: Result Comment: <100 mg/dl OPTIMAL 100 - 129 mg/dl NEAR OR ABOVE OPTIMAL 130 - 159 mg/dl BORDERLINE HIGH 160 - 189 mg/dl HIGH >190 mg/dl VERY HIGH Performed By: #### D ATLIPI, DATPSA, DATBMP #### [facility] [address] [place] [address] Dr. Power Covarrubias Triglyceride [Mass/Vol] 59 mg/dL Normal <=150 [facility] Comment on above: Performed By: #### D ATLIPI, DATPSA, DATBMP #### [facility] [address] [address] [address] Power Covarrubias VLDL CALC 11.8 mg/dL Normal [facility] Comment on above: Performed By: #### D ATLIPI, DATPSA, DATBMP #### [facility] [address] [place] [address] Dr. Power Covarrubias PROF 14(COMP METB)on 022 Albumin [Mass/Vol] 3.3 g/dL Critically low 3.4-5.0 [facility] Comment on above: Performed By: #### D ATLIPI, DATPSA, DATBMP #### [facility] [address] [place] [address] Dr. Power Covarrubias Albumin/Globulin [Mass ratio] 0.9 {ratio} Normal [facility] Comment on above: Performed By: #### D ATLIPI, DATPSA, DATBMP #### [facility] [address] [place] [address] Dr. Power Covarrubias ALP [Catalytic activity/Vol] 100 U/L Normal 46-116 [facility] Comment on above: Performed By: #### D ATLIPI, DATPSA, DATBMP #### [facility] [address] [address] [address] Power Covarrubias ALT [Catalytic activity/Vol] 16 U/L Normal 16-63 [facility] Comment on above: Performed By: #### D ATLIPI, DATPSA, DATBMP #### [facility] [address] [place] [address] Dr. Power Covarrubias Anion gap [Moles/Vol] 11.4 mmol/L Normal [facility] Comment on above: Performed By: #### D ATLIPI, DATPSA, DATBMP #### [facility] [address] [place] [address] Dr. Power Covarrubias AST [Catalytic activity/Vol] 14 U/L Critically low 15-37 [facility] Comment on above: Performed By: #### D ATLIPI, DATPSA, DATBMP #### [facility] [address] [place] [address] Dr. Power Covarrubias Bilirubin [Mass/Vol] 0.7 mg/dL Normal 0.2-1.0 [facility] Comment on above: Performed By: #### D ATLIPI, DATPSA, DATBMP #### [facility] [address] [place] [address] Dr. Poewr Covarrubias Calcium [Mass/Vol] 9.0 mg/dL Normal 8.5-10.1 [facility] Comment on above: Performed By: #### D ATLIPI, DATPSA, DATBMP #### [facility] [address] [address] [address] Power Covarrubias Chloride [Moles/Vol] 107 mmol/L Normal 98-107 [facility] Comment on above: Performed By: #### D ATLIPI, DATPSA, DATBMP #### [facility] [address] [place] [address] Dr. Power Covarrubias CO2 [Moles/Vol] 28.5 mmol/L Normal 21.0-32.0 [facility] Comment on above: Performed By: #### D ATLIPI, DATPSA, DATBMP #### [facility] [address] [place] [address] Dr. Power Covarrubias Creatinine [Mass/Vol] 0.87 mg/dL Normal 0.70-1.30 [facility] Comment on above: Performed By: #### D ATLIPI, DATPSA, DATBMP #### [facility] [address] [place] [address] Dr. Power Covarrubias EGFR-AF LIBYAN >60 Normal >=60 [facility] Comment on above: Performed By: #### D ATLIPI, DATPSA, DATBMP #### [facility] [address] [place] [address] Dr. Power Covarrubias EGFR-NON AF LIBYAN >60 Normal >=60 [facility] Comment on above: Performed By: #### D ATLIPI, DATPSA, DATBMP #### [facility] [address] [place] [address] Dr. Power Covarrubias Globulin (S) [Mass/Vol] 3.6 g/dL Normal [facility] Comment on above: Performed By: #### D ATLIPI, DATPSA, DATBMP #### [facility] [address] [place] [address] Dr. Power Covarrubias Glucose [Mass/Vol] 90 mg/dL Normal 74-106 [facility] Comment on above: Performed By: #### D ATLIPI, DATPSA, DATBMP #### [facility] [address] [place] [address] Dr. Power Covarrubias Potassium [Moles/Vol] 3.9 mmol/L Normal 3.5-5.1 [facility] Comment on above: Performed By: #### D ATLIPI, DATPSA, DATBMP #### [facility] [address] [place] [address] Dr. Power Covarrubias Protein [Mass/Vol] 6.9 g/dL Normal 6.4-8.2 [facility] Comment on above: Performed By: #### D ATLIPI, DATPSA, DATBMP #### [facility] [address] [place] [address] Dr. Power Covarrubias Sodium [Moles/Vol] 143 mmol/L Normal 136-145 [facility] Comment on above: Performed By: #### D ATLIPI, DATPSA, DATBMP #### [facility] [address] [place] [address] Dr. Power Covarrubias Urea nitrogen [Mass/Vol] 13.0 mg/dL Normal 7.0-18.0 [facility] Comment on above: Performed By: #### D ATLIPI, DATPSA, DATBMP #### [facility] [address] [place] [address] Dr. Power Covarrubias Urea nitrogen/Creatinine [Mass ratio] 14.9 mg/mg Normal [facility] Comment on above: Performed By: #### D ATLIPI, DATPSA, DATBMP #### [facility] [address] [place] [address] Dr. Power Covarrubias TSHon 06-29-2022 TSH 2.585 uIU/mL Normal 0.358-3.740 [facility] Comment on above: Performed By: #### T SH, LIPID, FT3, CMP #### [facility] [address] [place] [address] Dr. Power Covarrubias CBC AUTO DIFFon 04-09-2022 BASO # 0.1 103/ul Normal 0.0-0.1 [facility] Comment on above: Performed By: #### D ATCBC #### [facility] [address] [place] [address] Dr. Power Covarrubias Basophils/100 WBC (Bld) 1.0 % Normal 0.2-2.0 [facility] Comment on above: Performed By: #### D ATCBC #### [facility] [address] [place] [address] Dr. Power Covarrubias EO # 0.2 103/ul Normal 0.0-0.7 [facility] Comment on above: Performed By: #### D ATCBC #### [facility] [address] [place] [address] Dr. Power Covarrubias Eosinophils/100 WBC (Bld) 3.7 % Normal 0.9-7.0 [facility] Comment on above: Performed By: #### D ATCBC #### [facility] [address] [place] [address] Dr. Power Covarrubias Erythrocyte distribution width (RBC) [Ratio] 13.3 % Normal 11.0-15.0 [facility] Comment on above: Performed By: #### D ATCBC #### [facility] [address] [place] [address] Dr. Power Covarrubias Hematocrit (Bld) [Volume fraction] 37.8 % Critically low 42.0-54.0 [facility] Comment on above: Performed By: #### D ATCBC #### [facility] [address] [place] [address] Dr. Power Covarrubias Hemoglobin (Bld) [Mass/Vol] 12.4 g/dL Critically low 14.0-18.0 [facility] Comment on above: Performed By: #### D ATCBC #### [facility] [address] [place] [address] Dr. Power Covarrubias IG # 0.01 10e3/ul Normal 0.00-0.03 [facility] Comment on above: Performed By: #### D ATCBC #### [facility] [address] [place] [address] Dr. Power Covarrubias IG % 0.2 % Normal 0.0-0.5 [facility] Comment on above: Performed By: #### D ATCBC #### [facility] [address] [place] [address] Dr. Power Covarrubias LYMPH # 1.0 103/ul Critically low 1.2-3.8 [facility] Comment on above: Performed By: #### D ATCBC #### [facility] [address] [place] [address] Dr. Power Covarrubias Lymphocytes/100 WBC (Bld) 19.0 % Critically low 20.5-60.0 [facility] Comment on above: Performed By: #### D ATCBC #### [facility] [address] [place] [address] Dr. Power Covarrubias MCH (RBC) [Entitic mass] 30.9 pg Normal 25.9-34.0 [facility] Comment on above: Performed By: #### D ATCBC #### [facility] [address] [place] [address] Dr. Power Covarrubias MCHC (RBC) [Mass/Vol] 32.8 g/dL Normal 29.9-35.2 [facility] Comment on above: Performed By: #### D ATCBC #### [facility] [address] [place] [address] Dr. Power Covarrubias MCV (RBC) [Entitic vol] 94.3 fL Critically high 80.0-94.0 [facility] Comment on above: Performed By: #### D ATCBC #### [facility] [address] [place] [address] Dr. Power Covarrubias MONO # 0.5 103/ul Normal 0.3-0.8 [facility] Comment on above: Performed By: #### D ATCBC #### [facility] [address] [place] [address] Dr. Power Covarrubias Monocytes/100 WBC (Bld) 9.4 % Normal 1.7-12.0 [facility] Comment on above: Performed By: #### D ATCBC #### [facility] [address] [place] [address] Dr. Power Covarrubias NEUT # 3.4 103/ul Normal 1.4-6.5 [facility] Comment on above: Performed By: #### D ATCBC #### [facility] [address] [place] [address] Dr. Power Covarrubias Neutrophils/100 WBC (Bld) 66.7 % Normal 43.0-75.0 [facility] Comment on above: Performed By: #### D ATCBC #### [facility] [address] [place] [address] Dr. Power Covarrubias Platelet mean volume (Bld) [Entitic vol] 9.9 fL Normal 9.5-13.5 [facility] Comment on above: Performed By: #### D ATCBC #### [facility] [address] [place] [address] Dr. Power Covarrubias PLT 205 103/ul Normal 150-450 [facility] Comment on above: Performed By: #### D ATCBC #### [facility] [address] [address] [address] Power Covarrubias RBC 4.01 106/ul Critically low 4.70-6.10 [facility] Comment on above: Performed By: #### D ATCBC #### [facility] [address] [place] [address] Dr. Power Covarrubias WBC 5.1 103/ul Normal 4.0-11.0 [facility] Comment on above: Performed By: #### D ATCBC #### [facility] [address] [place] [address] Dr. Power Covarrubias BRE- BMP WITH LIPIDon 2021 Anion gap [Moles/Vol] 9.5 mmol/L Normal [facility] Comment on above: Performed By: #### D ATLIPI, DATPSA, DATBMP #### [facility] [address] [place] [address] Dr. Power Covarrubias Calcium [Mass/Vol] 9.0 mg/dL Normal 8.5-10.1 [facility] Comment on above: Performed By: #### D ATLIPI, DATPSA, DATBMP #### [facility] [address] [place] [address] Dr. Power Covarrubias Chloride [Moles/Vol] 108 mmol/L Critically high 98-107 [facility] Comment on above: Performed By: #### D ATLIPI, DATPSA, DATBMP #### [facility] [address] [place] [address] Dr. Power Covarrubias Cholesterol [Mass/Vol] 114 mg/dL Normal <=200 [facility] Comment on above: Performed By: #### D ATLIPI, DATPSA, DATBMP #### [facility] [address] [place] [address] Dr. Power Covarrubias Cholesterol in HDL [Mass/Vol] 49 mg/dL Normal 40-60 [facility] Comment on above: Performed By: #### D ATLIPI, DATPSA, DATBMP #### [facility] [address] [place] [address] Dr. Power Covarrubias Cholesterol in LDL [Mass/Vol] 50.4 mg/dL Normal [facility] Comment on above: Performed By: #### D ATLIPI, DATPSA, DATBMP #### [facility] [address] [place] [address] Dr. Power Covarrubias CO2 [Moles/Vol] 28.3 mmol/L Normal 21.0-32.0 [facility] Comment on above: Performed By: #### D ATLIPI, DATPSA, DATBMP #### [facility] [address] [place] [address] Dr. Power Covarrubias Creatinine [Mass/Vol] 0.88 mg/dL Normal 0.70-1.30 [facility] Comment on above: Performed By: #### D ATLIPI, DATPSA, DATBMP #### [facility] [address] [place] [address] Dr. Power Covarrubias EGFR-AF LIBYAN >60 Normal >=60 [facility] Comment on above: Performed By: #### D ATLIPI, DATPSA, DATBMP #### [facility] [address] [place] [address] Dr. Power Covarrubias EGFR-NON AF LIBYAN >60 Normal >=60 [facility] Comment on above: Performed By: #### D ATLIPI, DATPSA, DATBMP #### [facility] [address] [place] [address] Dr. Power Covarrubias Glucose [Mass/Vol] 107 mg/dL Critically high 74-106 [facility] Comment on above: Performed By: #### D ATLIPI, DATPSA, DATBMP #### [facility] [address] [place] [address] Dr. Power Covarrubias HDL NORMAL > or = 60 mg/dl - LO W CARDIOVASCULAR RISK <40 mg/dl - HIGH CARDIOVASCULAR RISK Normal [facility] Comment on above: Performed By: #### D ATLIPI, DATPSA, DATBMP #### [facility] [address] [place] [address] Dr. Power Covarrubias LDL CALC NORMAL SEE BELOW Normal [facility] Comment on above: Result Comment: <100 mg/dl OPTIMAL 100 - 129 mg/dl NEAR OR ABOVE OPTIMAL 130 - 159 mg/dl BORDERLINE HIGH 160 - 189 mg/dl HIGH >190 mg/dl VERY HIGH Performed By: #### D ATLIPI, DATPSA, DATBMP #### [facility] [address] [place] [address] Dr. Power Covarrubias Potassium [Moles/Vol] 3.8 mmol/L Normal 3.5-5.1 [facility] Comment on above: Performed By: #### D ATLIPI, DATPSA, DATBMP #### [facility] [address] [address] [address] Power Covarrubias Sodium [Moles/Vol] 142 mmol/L Normal 136-145 [facility] Comment on above: Performed By: #### D ATLIPI, DATPSA, DATBMP #### [facility] [address] [place] [address] Dr. Power Covarrubias Triglyceride [Mass/Vol] 73 mg/dL Normal <=150 [facility] Comment on above: Performed By: #### D ATLIPI, DATPSA, DATBMP #### [facility] [address] [place] [address] Dr. Power Covarrubias Urea nitrogen [Mass/Vol] 12.0 mg/dL Normal 7.0-18.0 [facility] Comment on above: Performed By: #### D ATLIPI, DATPSA, DATBMP #### [facility] [address] [place] [address] Dr. Power Covarrubias Urea nitrogen/Creatinine [Mass ratio] 13.6 mg/mg Normal [facility] Comment on above: Performed By: #### D ATLIPI, DATPSA, DATBMP #### [facility] [address] [address] [address] Power Covarrubias VLDL CALC 14.6 mg/dL Normal [facility] Comment on above: Performed By: #### D ATLIPI, DATPSA, DATBMP #### [facility] [address] [address] [address] Power Covarrubias Cardiovascular Lab Reporton 07-03-2020 Cardiovascular Lab Report [facility] Patient Name: [facility] MR #: [id number] Physician: Shiloh Hester, Department of M.D. Medicine Service Date: 07/03/2020 Division of Birthdate: 1945 Cardiology Room #: Adult Cardiovascular Services [place] [address] Cardiovascular Laboratory Report FINAL IMPRESSIONS: 1. Bnha-is-mbqipmfx 3-vessel coronary artery disease. 2. Bwxg-[id number] left main coronary artery disease that appears [...] up with Dr. Hester in the [facility] in the next 1 to 2 [...] to access the left radial artery. A 6-Martiniquais glide sheath was inserted without difficulty. Resistance [...] Hester M.D. Date Trans: 07/03/2020 02:42 P/mmo [id number] cc: Neo Gould M.D. [address], [place] [address] [facility] Vital Signs Date Time Vital Sign Value Performing Clinician Facility 09-03-2024 16:01-0500 Body height 177.8 cm Tejas Katiana DO Work Phone: [facility] 09-03-2024 16:01-0500 Body mass index (BMI) [Ratio] 32.28 kg/m2 Tejas Katiana DO Work Phone: [facility] 09-03-2024 16:01-0500 Body weight 102.06 kg Tejas Katiana DO Work Phone: [facility] 09-03-2024 16:01-0500 Diastolic blood pressure 62 mm[Hg] Tejas Katiana DO Work Phone: [facility] 09-03-2024 16:01-0500 Heart rate 54 /min Tejas Katiana DO Work Phone: [facility] 09-03-2024 16:01-0500 SaO2% (BldA) [Mass fraction] 96 % Tejas Katiana DO Work Phone: [facility] 09-03-2024 16:01-0500 Systolic blood pressure 112 mm[Hg] Tejas Katiana DO Work Phone: [facility] 03-05-2024 16:01-0400 Body height 175.3 cm Pietro Torre MD Work Phone: [facility] 03-05-2024 16:01-0400 Body mass index (BMI) [Ratio] 41.64 kg/m2 Pietro Torre MD Work Phone: [facility] 03-05-2024 16:01-0400 Body weight 127.91 kg Pietro Torre MD Work Phone: [facility] 03-05-2024 16:01-0400 Diastolic blood pressure 58 mm[Hg] Pietro Torre MD Work Phone: [facility] 03-05-2024 16:01-0400 Heart rate 52 /min Pietro Torre MD Work Phone: [facility] 03-05-2024 16:01-0400 Systolic blood pressure 101 mm[Hg] Pietro Torre MD Work Phone: [facility] 03-28-2023 14:23-0400 Blood Pressure Location Zhang NILL [facility] 03-28-2023 14:23-0400 Diastolic blood pressure 60 mm[Hg] Zhang NILL [facility] [place] 03-28-2023 14:23-0400 Heart rate 60 /min Zhang NILL [facility] [place] 03-28-2023 14:23-0400 Respiratory rate 16 /min Zhang NILL [facility] [place] 03-28-2023 14:23-0400 Systolic blood pressure 116 mm[Hg] Zhang NILL [facility] Encounters Encounter Date Encounter Type Care Provider Facility Start: 12-16-2024 End: 12-16-2024 ambulatory HORTENCIA ROTH Not Available Start: 12-16-2024 End: 12-16-2024 Telephone encounter Asha Ly NP Work Phone: [facility] Start: 10-30-2024 End: 10-30-2024 ambulatory PADMA LAU Not Available Start: 10-30-2024 End: 10-30-2024 Office outpatient visit 25 minutes Padma Lau NP Work Phone: [facility] Comment on above: 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); Tear of right rotator cuff, unspecified tear extent, unspecified whether traumatic; Chronic right shoulder pain Start: 10-30-2024 End: 10-30-2024 Bamboo flowsheet Padma Lau SECONDARY TEACHER Work Phone: [facility] Start: 10-30-2024 End: 10-30-2024 Bamboo flowsheet Padma Lau SECONDARY TEACHER Work Phone: [facility] Start: 09-30-2024 End: 09-30-2024 Bamboo flowsheet Tejas Katiana DO [facility] Start: 09-30-2024 End: 09-30-2024 Bamboo flowsheet Tejas Katiana DO Work Phone: [facility] Start: 09-30-2024 End: 09-30-2024 ambulatory TEJAS KATIANA Not Available Start: 09-30-2024 End: 09-30-2024 Patient encounter procedure Tejas Katiana DO Work Phone: [facility] Comment on above: Peripheral neuropath y, idiopathic; Numbness and tingling Start: 09-24-2024 End: 09-26-2024 [facility] Start: 09-23-2024 End: 09-23-2024 ambulatory TEJAS KATIANA Not Available Start: 09-23-2024 End: 09-23-2024 Patient encounter procedure Tejas Katiana DO Work Phone: [facility] Comment on above: Peripheral neuropath y, idiopathic; Numbness and tingling Start: 09-19-2024 End: 09-19-2024 Clinisync Result Encounter Tejas Katiana DO Work Phone: [facility] External Department Unsolicited Start: 09-19-2024 End: 09-19-2024 Clinisync Result Encounter Tejas Katiana DO Work Phone: [facility] External Department Unsolicited Start: 09-03-2024 End: 09-03-2024 Office outpatient new 45 minutes Tejas Katiana DO [facility] Comment on above: Peripheral neuropath y, idiopathic (Primary Dx); Numbness and tingling; Weakness; Low back pain at multiple sites; Neck pain Start: 09-03-2024 End: 09-03-2024 ambulatory TEJAS KATIANA Not Available Start: 09-03-2024 End: 09-03-2024 Bamboo flowsheet Tejas Saab DO Work Phone: [facility] Start: 09-03-2024 End: 09-03-2024 Bamboo flowsheet Tejas Saab DO Work Phone: [facility] Start: 08-28-2024 End: 08-28-2024 ambulatory [facility] Start: 04-02-2024 End: 04-02-2024 ambulatory TINY TRAVIS Not Available Start: 03-19-2024 End: 03-19-2024 ambulatory Zhang CHENL Facility:[facility] Start: 03-05-2024 End: 03-05-2024 ambulatory PIETRO TORRE [facility] Start: 03-05-2024 End: 03-05-2024 Office outpatient visit 15 minutes Pietro Torre MD Work Phone: [facility] Comment on above: Prostate cancer ([facility]) (Primary Dx) Start: 02-19-2024 End: 02-19-2024 ambulatory [facility] Start: 12-13-2023 End: 12-13-2023 ambulatory [facility] Start: 11-27-2023 End: 11-27-2023 ambulatory [facility] Start: 09-13-2023 ambulatory Ghislaine Morales Facility:[facility] Start: 06-15-2023 ambulatory Zhang NILL Facility:[facility] Start: 05-09-2023 ambulatory Zhang R NILL Facility :[facility] Start: 04-26-2023 End: 04-27-2023 ambulatory Zhang R NILL Facility:CD:[id number] Start: 03-28-2023 End: 03-29-2023 ambulatory Zhang R NILL Facility:[facility] Start: 03-28-2023 End: 03-28-2023 Patient encounter procedure Zhang DENISE [facility] [place] Start: 03-01-2023 End: 03-02-2023 ambulatory NONE LISTED REQUEST Facility:[facility] Start: 12-10-2022 End: 12-11-[address] NEO GOULD . Facility:[facility] Start: 08-31-2022 End: 09-01-2022 ambulatory NONE LISTED REQUEST Facility:[facility] Start: 06-29-2022 End: 06-30-2022 ambulatory PEBBLES VANCE Facility:[facility] Start: 04-09-2022 End: 04-10-2022 ambulatory NONE LISTED REQUEST Facility:[facility] Procedures Date Procedure Procedure Detail Performing Clinician Start: 10-30-2024 Arthrocentesis aspir &/inj major jt/bursa w/us Padma T Elvira SECONDARY TEACHER Work Phone: Start: 09-30-2024 End: 09-30-2024 Needle emg ea extremty w/paraspinl area complete Tejas Katiana DO Work Phone: Start: 09-23-2024 End: 09-23-2024 Needle emg ea extremty w/paraspinl area complete Tejas Katiana DO Work Phone: Start: 09-19-2024 ALL THYROID STIM HORMONE Tejas Katiana DO Work Phone: Start: 03-05-2024 Follow-up visit Follow-up PIETRO TORRE Start: 03-01-2023 PSA screening [facility] Comment on above: Performed By: #### D ATLPAOLAI DATPSA, DATBMP #### [facility] [address] [address] [address] Power Covarrubias Start: 08-31-2022 PSA screening PEBBLES [facility] O[facility] Comment on above: Performed By: #### D ATLMACK DATPSGuicho, DATBMP #### [facility] [address] [address] [address] Power Covarrubias Start: 06-29-2022 PSA screening PEBBLES B OES Comment on above: Performed By: #### P SASC #### [facility] [address] [place], [place] [address] Dr. Power Covarrubias Start: 10-04-2017 Colonoscopy Zhang NG Excision of lumbar intervertebral disc Zhang HOWIE Comment on above: L5 Repair of hip Zhang DENISE Plan of Treatment Date Care Activity Detail Author Start: 03-11-2025 End: 03-11-2025 Patient encounter procedure 03/11/2025 1:45 PM EDT [facility] [address] [place] [address] [place] [address] Pietro Torre MD [address] [place] [address] [facility] Start: 03-05-2025 End: 02-03-2026 Prostatic specific antigen, diagnostic Prostatic specific antigen, diagnostic Lab Routine Prostate cancer ([facility]) Expected: 03/05/2025 (Approximate), Expires: 02/03/2026 [facility] Comment on above: Expected: 03/05/2025 (Approximate), Expires: 02/03/2026 Start: 03-05-2025 Tobacco Screening Tobacco Screening [facility] Start: 12-19-2024 End: 12-19-2024 Patient encounter procedure 12/19/2024 3:50 PM EST Procedure Visit [facility] [address] [place] [address] [address] [place] [address] Guero Fink DPM [address] [facility] [address] [place] [address] [facility] Start: 12-16-2024 End: 12-16-2024 Patient encounter procedure 12/16/2024 4:00 PM EST Office Visit [facility] [address] [place] [address] Hortencia Roth NP [address] [place], [place] [facility] Start: 11-25-2024 End: 11-25-2024 Patient encounter procedure [facility] Start: 09-30-2024 End: 09-30-2024 Patient encounter procedure 09/30/2024 11:30 AM EST Procedure Visit [facility] [address] [facility] [place] [phone] Tejas Saab, DO [address] [place] [address] [facility] [address] [facility] Start: 09-23-2024 End: 09-23-2024 Patient encounter procedure 09/23/2024 4:00 PM EST Procedure Visit [facility] [address] [place] [phone] Tejas Saab, DO [address] [place] [address] [facility] Start: 09-03-2024 End: 09-03-2024 Patient encounter procedure 09/03/2024 4:00 PM EST Office Visit [facility] [address] [place] [phone] Tejas Saab, DO [address] [place] [address] Arrived [facility] [place] [facility] Comment on above: Arrived Start: 09-03-2024 End: 09-03-2025 Cobalamin (Vitamin B12) [Mass/volume] in Serum or Plasma Vitamin B12 Lab Routine Peripheral neuropathy, idiopathic Numbness and tingling Expected: 09/03/2024 (Approximate), Expires: 09/03/2025 [facility] Comment on above: Expected: 09/03/2024 (Approximate), Expires: 09/03/2025 Start: 09-03-2024 End: 09-03-2025 EMG 2 Extremities EMG 2 Extremities Neurology Routine Peripheral neuropathy, idiopathic Numbness and tingling Expected: 09/03/2024 (Approximate), Expires: 09/03/2025 [facility] Comment on above: Expected: 09/03/2024 (Approximate), Expires: 09/03/2025 Start: 09-03-2024 End: 09-03-2025 Folate [Mass/volume] in Serum or Plasma Folate Lab Routine Peripheral neuropathy, idiopathic Numbness and tingling Expected: 09/03/2024 (Approximate), Expires: 09/03/2025 [facility] Comment on above: Expected: 09/03/2024 (Approximate), Expires: 09/03/2025 Start: 09-03-2024 End: 09-03-2025 NVC 11-12 Nerves NVC 11-12 Nerves Neurology Routine Peripheral neuropathy, idiopathic Numbness and tingling Expected: 09/03/2024 (Approximate), Expires: 09/03/2025 [facility] Comment on above: Expected: 09/03/2024 (Approximate), Expires: 09/03/2025 Start: 09-03-2024 End: 09-03-2025 NVC 9-10 Nerves NVC 9-10 Nerves Neurology Routine Peripheral neuropathy, idiopathic Numbness and tingling Expected: 09/03/2024 (Approximate), Expires: 09/03/2025 [facility] Comment on above: Expected: 09/03/2024 (Approximate), Expires: 09/03/2025 Start: 09-03-2024 End: 09-03-2025 Protein electrophoresis, serum Protein electrophoresis, serum Lab Routine Peripheral neuropathy, idiopathic Numbness and tingling Expected: 09/03/2024 (Approximate), Expires: 09/03/2025 [facility] Comment on above: Expected: 09/03/2024 (Approximate), Expires: 09/03/2025 Start: 09-03-2024 End: 09-03-2025 Thyrotropin [Units/volume] in Serum or Plasma TSH Lab Routine Peripheral neuropathy, idiopathic Numbness and tingling Expected: 09/03/2024 (Approximate), Expires: 09/03/2025 [facility] Work Phone: Comment on above: Expected: 09/03/2024 (Approximate), Expires: 09/03/2025 Start: 09-01-2024 End: 03-05-2025 Prostatic specific antigen, diagnostic Prostatic specific antigen, diagnostic Lab Routine Prostate cancer ([facility]) Expected: 09/01/2024 (Approximate), Expires: 03/05/2025 [employer] Work Phone: Comment on above: Expected: 09/01/2024 (Approximate), Expires: 03/05/2025 Start: 06-16-2024 Influenza [facility] Start: 03-07-2024 Adult BMI Screening Adult BMI Screen ing [facility] Start: 03-07-2024 Tobacco Screening Tobacco Screening [facility] Start: 05-27-2021 COVID-19 Vaccine (3 - Pfizer risk series) COVID-19 Vaccine (3 - Pfizer risk series) [facility] Start: 2011 Abdominal aortic ane urysm screening Abdominal Aortic Aneurysm (AAA) [facility] Start: 2011 Fall Risk Screening Fall Risk Screen ing [facility] Start: 2011 Pneumococcal Vaccine : 65+ Years (1 of 1 - PCV) Pneumococcal Vaccine: 65+ Years (1 of 1 - PCV) [facility] Start: 1965 Administration of varicella zoster vaccine Zoster (Shingles) Vaccine (1 of 2) [facility] Start: 1965 DTaP,Tdap and Td Vac cines (1 - Tdap) DTaP,Tdap and Td Vaccines (1 - Tdap) [facility] [employer] Start: 1964 Adult BMI Follow Up Plan Adult BMI Follow Up Plan [facility] Start: 1958 Depression Screening Depression Scre ening [facility] [employer] Start: 1946 Medicare Annual Well ness Visit Medicare Annual Wellness Visit [facility] Immunizations Immunization Date Immunization Notes Care Provider Fa cility 04-29-2021 SARS-CoV-2 (COVID-19 ) mRNA BNT-162b2 ese DENISE [facility] [place] 04-09-2021 SARS-CoV-2 (COVID-19 ) mRNA BNT-162b2 ese DENISE [facility] [place] Payers Date Payer Category Payer Medicare (Managed Care) [employer] [id number] 2015 Medicare ON LICENSE OF [facility] MEDICARE ON LICENSE OF [facility] MEDICARE ADVANTAGE [id number] 2015-Present [phone] [address] [id number] 2015 Medicare HMO ON LICENSE OF [facility] MEDICARE Member Subscriber Plan / Payer (Effective 2015-Present) Name: Oscar Cox Relation to Subscriber: Self Name: Oscar Cox Pietro Payer ID: [id number] (NAIC) Group ID: [id number] Type: Not on file Address: [address] [place] [id number] 1959 Self-pay 1959 Unknown [id number] 1945 Unknown [id number] [id number]. 2.593 1946 Unknown [id number] 2.16.840.1.322907.3.579. 2.593 1946 Unknown [id number] 2.16.840.1.509208.3.579. 2.1286 1946 Unknown [id number] 2.16.840.1.148445.3.579. 2.727 1946 Unknown [id number] 2.16.840.1.870916.3.579. 2.727 1946 Unknown [id number] 2.16.840.1.095483.3.579. 2.72 1946 Unknown [id number] 2.16.840.1.546595.3.579. 2.72 1946 Unknown [id number] 2.16.840.1.160304.3.579. 2.72 1946 Unknown [id number] 2.16.840.1.393154.3.579. 2.1258 1946 Unknown [id number] 2.16.840.1.197223.3.579. 2.1258 1946 Unknown [id number] 2.16840.1.258152.3.579. 2.1258 1946 Unknown [id number] 2.16.840.1.492983.3.579. 2.1258 1946 Unknown [id number] 2.16.840.1.004401.3.579. 2.1258 1946 Unknown [id number] 2.16.840.1.322034.3.579. 2.1258 1946 Unknown [id number] 2.16840.1.421608.3.579. 2.1259 Unknown [id number] 2.16.840.1.478751.3.579. 2.593 Unknown [id number] 2.16840.1.217709.3.579. 2.593 Unknown [id number] 2.16840.1.547400.3.579. 2.593 Social History Date Type Detail Facility Start: 03-28-2023 Tobacco smoking status Never s moked tobacco (finding) [facility] [place] Tobacco smoking status Never [facility] [place] Start: 03-29-2023 End: 01-15-2025 Sex Assigned At Male Koko Gold [facility] Start: 03-29-2023 End: 03-05-2024 Tobacco smoking status NHIS Ex-smoker [facility] Start: 12-21-1964 End: 12-21-1984 History of tobacco use Current smoker [facility] Start: 12-21-1964 End: 12-21-1984 History of tobacco use Cigarette Smoker [facility] Start: 03-29-2023 End: 03-05-2024 Tobacco use and exposure Smokeless tobacco non-user [facility] Start: 03-18-2024 End: 10-30-2024 Alcoholic beverage intake Ex-drinker (finding) [facility] Start: 03-29-2023 End: 10-30-2024 History of Social function [facility] Start: 03-30-2023 Alcohol Comment Caffeine 1-2 c ups per day [facility] Start: 1945 Sex assigned at Not on file P [facility] Start: 03-05-2024 Alcoholic beverage intake Current drinker of alcohol (finding) [facility] Start: 03-05-2024 Tobacco Comment quit 35 years ago for 20 years [facility] Start: 05-19-2015 Sex Male (finding) [facility] Functional Status Date Assessment Result Facility 03-28-2023 Functional Status N/A [facility] Clinical Notes 03-28-2023 to 12-16-2024 Telephone Encounter - Asha Ly NP - 12/16/2024 12:45 PM ESTTelephone Encounter - Asha Ly NP - 12/16/2024 12:45 PM Yosi Lau NP - 10/30/2024 2:45 PM EST Note Date & Type Note Facility 12-16-2024 Telephone encounter Note Lab results from 09/20/24 reviewed. Patient started on Levothyroxine per PCP following this result. [facility] Work Phone: 12-16-2024 Miscellaneous Notes Lab results from 09/20/24 reviewed. Patient started on Levothyroxine per PCP following this result. documented in this encounter [facility] 10-30-2024 History of Present illness Narrative Associated Order(s): L Inj/Asp: R subacromial bursa Post-Procedure Diagnose(s): Primary osteoarthritis of right shoulder; Tear of right rotator cuff, unspecified tear extent, unspecified whether traumatic Images from the original note were not included. NAME: Oscar Cox : 1945 HISTORY OF PRESENT ILLNESS: Oscar Cox is an 79 y.o. @ male. (NEW PT) DR GOULD REFERRAL. RT SHOULDER PAIN 07/2024, DURING THE NIGHT HE ROLLED OVER AND IT POPPED. ABOUT A WEEK LATER HE HAD BRUISING. WENT TO [facility] ER 07/26/24 XRAY [facility] 07/26/24 MRI [facility] 09/26/24 EMG BUE [facility] 09/30/24 PHYSICAL THERAPY @ [facility] PAIN IN JOINT. DENIES RADIATION. +TYL OR IBU AND BACLOFEN. +LIDOCAINE ROLL ON. +N/T IN HANDS. +POPPING, GRINDING, CRACKING. LIMITED ROM. DOES NOT WAKE AT HS. RT HANDED. *ON ELIQUIS PAST MEDICAL HISTORY: Past Medical History: Diagnosis Date A-fib ([facility]) Adenocarcinoma ([facility]) CHF (congestive heart failure) ([facility]) 04/16/2013 echo EF 35% Chronic venous insufficiency Coronary artery disease ([facility]) Former smoker Hemorrhoids Hyperlipidemia ([facility]) Hypertension ([facility]) Morbid obesity with BMI of 40.0-44.9, adult ([facility]) OA (osteoarthritis) OM (onychomycosis) Prostate cancer ([facility]) Prostatitis PAST SURGICAL HISTORY: Past Surgical History: Procedure Laterality Date BUNIONECTOMY Bilateral CARDIAC CATHETERIZATION HAND SURGERY Left 3rd MC replacement LUMBAR SPINE SURGERY L5 NEUROMA SURGERY Bilateral B/L feet surgery neuroma PROSTATE BIOPSY 01/30/2015 TONSILLECTOMY TOTAL HIP ARTHROPLASTY Right 09/2014 [facility] ALLERGIES: No Known Allergies HOME MEDICATIONS: Current Outpatient Medications Medication Instructions acetaminophen (Tylenol) 325 MG tablet Every 4 hours apixaban (Eliquis) 5 MG tablet take 1 tablet by mouth twice a day Oral for 30 atorvastatin (Lipitor) 80 MG tablet Oral for 90 baclofen (Lioresal) 5 MG tablet Every 12 hours DULoxetine (CYMBALTA) 20 mg, Daily furosemide (Lasix) 40 MG tablet Every 24 hours hydrALAZINE (APRESOLINE) 50 mg, 2 times daily hyoscyamine (Anaspaz,Levsin) 0.125 MG tablet 1 Orally BID prn levothyroxine (SYNTHROID, LEVOXYL) 50 mcg oxybutynin (Ditropan) 2.5 mg split tablet As needed rOPINIRole (REQUIP) 1 mg, Nightly Vitals: There is no height or weight on file to calculate BMI. PHYSICAL EXAM: Shoulder Musculoskeletal Exam Inspection Right Right shoulder inspection is normal. Ecchymosis: none Peripheral edema: none Atrophy: none Masses: none Palpation Right Crepitus: moderate Increased warmth: none Tenderness: present Anterior shoulder: moderate AC joint: moderate Proximal biceps: moderate Lateral arm: moderate Range of Motion Right Active ROM: abnormal and pain. Passive ROM: abnormal and pain. Active forward elevation: 90. Passive forward elevation: 90. Shoulder active abduction: 90. Passive abduction: 90. Internal rotation: side. Strength Right Abduction: 3/5. Abduction is affected by pain. Neurovascular Right Radial pulse: normal and 2+ Capillary refill: <3 sec Axillary nerve sensory distribution: normal Scapula Right Right shoulder scapula is normal. Position: normal Winging: none Special Tests Right Rotator Cuff Signs Neer's test: positive Painful arc test: positive AC Joint Signs Active horizontal adduction pain: positive General Constitutional: appears stated age Neurological: alert and oriented x3 IMAGING: I reviewed xray and MRI from [facility] which showed chronic full thickness RCT with retraction with degenerative changes. L Inj/Asp: R subacromial bursa on 10/30/2024 5:47 PM Indications: pain Details: 21 G needle, ultrasound-guided lateral approach Medications: 40 mg methylPREDNISolone acetate 40 MG/ML Outcome: tolerated well, no immediate complications Site cleaned with isopropyl alcohol. Procedure, treatment alternatives, risks and benefits explained, specific risks discussed. Consent was given by the patient. ASSESSMENT: ICD-10-CM 1. Primary osteoarthritis of right shoulder M19.011 2. Tear of right rotator cuff, unspecified tear extent, unspecified whether traumatic M75.101 3. Chronic right shoulder pain M25.511 G89.29 PLAN: I reviewed xray findings with the patient and discussed treatment options, answered questions. I discussed with the patient the option of an injection as he was not interested in surgery at this time. I advised the patient of risks associated with an injection including a reaction to medication, infection, failure to improve and possible worsening. The patient demonstrated understanding. Patient requesting injection. Skin Cleansed with alcohol swab. Ultrasound guidance to the area was performed in a limited fashion. Surrounding bone, tendon and soft tissues identified. Utilizing aseptic technique patient given 40mg Depomedrol was injected. Patient tolerated this well. Neurovasc intact s/p injection. Needle localization with image capture saved to the permanent record. This process facilitates more accurate injection placement which improves efficacy and reduces post injection reactions. Post injection care instructions discussed. Questions answered in laymen terms at the bedside. The diagnosis, home exercise plan and any ongoing restrictions/ recommendations reviewed. If unable to be reached in office, I recommend evaluation at nearest Emergency Room if any symptoms worsened or new symptoms develop for requiring urgent evaluation. Padma Lau APRN-PROGRAMMER ANALYST documented in this encounter [facility] 09-30-2024 History of Present illness Narrative Images from the original note were not included. Reason for Appointment: EMG Patient: Oscar Cox : 1945 EMG Computer: [employer] Referring Physician: Dr. Tejas Saab EMG: MAXWELL tuna purse seiner: Justino Byers RT(R) Office Location: [place] Reason for EMG: c/o numbness/tingling in 1st 2nd 3rd digits on bilateral hands L>R, neck pain. Hx of surgery to 3rd digit on left hand. No hx of DM. Taking Eliquis. Comments: Procedure was explained to the patient & aide who expressed understanding. Patient appeared to have tolerated the test well despite some discomfort due to the nature of the test. documented in this encounter [facility] 09-24-[address] Torre, Pt calls today stating that he used to get Lupron injections and his PSA levels are now low. He is calling stating that he believes 3 years after his last lupron injection that is he is now experiencing side effects from the lupron. Pt states the side effects include that he is now in wheelchair (which started 1 year ago), patient has a lot of falls, increased TSH, and thyroid problems. Pt believes that these issues are due to his lupron injection. When I asked what he would like Dr. Torre to do -- he would like for your guidance on if these issues are due to his lupron injection 3 years ago. Please advise, thank you While lupron can (rarely) cause hypothyroidism and can cause profound weakness it would have occurred when he received the Lupron, not 3 years later. Because of that it does not appear to be related Thank you Dr. Torre. Attempted to contact him a few times. His mailbox is full and unable to leave a voicemail. Pt called back. Message given as stated below. Pt states understanding and will call back if he has any further questions. documented in this encounter [facility] 09-24-2024 Telephone encounter Note Hi Dr. Torre, Pt calls today stating that he used to get Lupron injections and his PSA levels are now low. He is calling stating that he believes 3 years after his last lupron injection that is he is now experiencing side effects from the lupron. Pt states the side effects include that he is now in wheelchair (which started 1 year ago), patient has a lot of falls, increased TSH, and thyroid problems. Pt believes that these issues are due to his lupron injection. When I asked what he would like Dr. Torre to do -- he would like for your guidance on if these issues are due to his lupron injection 3 years ago. Please advise, thank you [facility] 09-24-2024 Telephone encounter Note While lupron can (rarely) cause hypothyroidism and can cause profound weakness it would have occurred when he received the Lupron, not 3 years later. Because of that it does not appear to be related [facility] Tele[facility] encounter Note Thank you Dr. Torre. Attempted to contact him a few times. His mailbox is full and unable to leave a voicemail. [facility] Telephone encounter Note Pt called back. Message given as stated below. Pt states understanding and will call back if he has any further questions. [facility] History of Present illness Narrative Images from the original note were not included. Reason for Appointment: EMG Patient: Oscar Cox : 1945 EMG Computer: Bringg Referring Physician: Dr. Tejas Saab EMG: BLE tuna purse seiner: Sarita Bro CMA Office Location: [place] Reason for EMG: c/o numbness and tingling in the legs and feet. Balance difficulty. R>L. Hx of back surgery at L5, Hx of neuroma surgery, Hx of right hip replacement. No Hx of DM, takes Eliquis Comments: Procedure explained to the patient who expressed understanding. documented in this encounter [facility] 09-03-2024 History of Present illness Narrative Images from the original note were not included. Chief Complaint Patient presents with CIDP Subjective Oscar Cox, 79 y.o., male being seen in Neurology consultation at the request of Dr. Gould. 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 He states that he has numbness and tingling bilat hands. He has numbness bilat legs and feet. He does not have a history of [place]. This started at least 3-4 years ago. He has weakness of his arms and legs. He states that he fell at home a year ago. He had a colonoscopy the day before. He had taken the the trash out and went over backwards and lost his balance. He see Dr Wilkinson for pain management. He is being considered for ablation. He is treating his neck pain. The patient states that his legs went numb and gave out on him and he fell. He uses a wheelchair to ambulate. He walks very little. He states that he has had several falls. He stands up if he makes coffee but most of the time he is in the wheelchair. He has gone to rehab and did PT. She is not doing much exercise at home. He will do some home exercises. He does not have diabetes. He is on requip for restless leg. He is also on cymbalta likely for nerve pain. Past Medical History: Diagnosis Date A-fib ([facility]) Adenocarcinoma ([facility]) CHF (congestive heart failure) ([facility]) 04/16/2013 echo EF 35% Chronic venous insufficiency Coronary artery disease ([facility]) Former smoker Hemorrhoids Hyperlipidemia ([facility]) Hypertension ([facility]) Morbid obesity with BMI of 40.0-44.9, adult ([facility]) OA (osteoarthritis) OM (onychomycosis) Prostate cancer ([facility]) Prostatitis Past Surgical History: Procedure Laterality Date BUNIONECTOMY Bilateral CARDIAC CATHETERIZATION HAND SURGERY Left 3rd MC replacement LUMBAR SPINE SURGERY L5 NEUROMA SURGERY Bilateral B/L feet surgery neuroma PROSTATE BIOPSY 01/30/2015 TONSILLECTOMY TOTAL HIP ARTHROPLASTY Right 09/2014 [place] Family History Adopted: Yes Social History Tobacco Use Smoking status: Former Current packs/day: 0.00 Types: Cigarettes Quit date: 1982 Years since quittin.9 Smokeless tobacco: Never Substance Use Topics Alcohol use: Not Currently Comment: Caffeine 1-2 cups per day Allergies: Patient has no known allergies. General: No fever or chills HEENT: No nasal congestion or runny nose Pulmonary: No shortness of breath or cough Cardiovascular: No chest pain or palpitations GI: No nausea or vomiting : No dysuria or hematuria Musculoskeletal: No new aches or pains or muscle weakness Infectious: no recurrent fevers or infections Dermatologic: No rashes or skin lesions Neurologic: No new headaches or dizziness Vitals: 09/03/24 1601 BP: 112/62 Pulse: 54 SpO2: 96% Body mass index is 32.28 kg/m . weight: 225 lb Neurologic exam: General: Normal body habitus, cooperative, pleasant Mental status: Awake, alert to person, place and time. Recent and remote memory are intact. Attention and concentration are normal. Fund of knowledge is appropriate for level of education. HEENT: NC/AT Cranial nerves: CN II: Visual ge full to confrontation. No loss of vision CN III, IV, : pupils equal round and reactive to light. Extraocular movements intact. No ptosis present. CN V: Facial sensation is normal. CN VII: Full and symmetric facial movement. CN VIII: Hearing is normal CN IX and X: Palate elevates symmetrically. CN XI: Shoulder shrug is normal bilaterally. CN XII: Tongue is midline without atrophy or fasciculation. Speech: Clear and fluent no aphasia or dysarthria Pronator drift: Negative bilateral upper extremity Coordination: Intact, no signs of dysmetria Good finger to nose and rapid alternating movements Sensory: Sensation is intact to light, temperature touch throughout four extremities. Pinprick intact and vibratory is decreased in a stocking distribution. Motor: LUE 5/5 RUE 5/5 LLE 4+/5 RLE 4+/5 Tone: Physiologic, no tremor, bradykinesia or rigidity DTR: Bilateral Biceps 2/4 Bilateral BR 2/4 Bilateral Patellar 1/4 No spasticity Gait: Slightly unsteady difficulty with tandem gait Romberg's positive Review and summary of old records: Assessment/Plan Diagnoses and all orders for this visit: Peripheral neuropathy, idiopathic - TSH; Future - Protein electrophoresis, serum; Future - Vitamin B12; Future - Folate; Future - NVC 9-10 Nerves; Future - EMG 2 Extremities; Future - NVC 11-12 Nerves; Future - EMG 2 Extremities; Future Numbness and tingling - TSH; Future - Protein electrophoresis, serum; Future - Vitamin B12; Future - Folate; Future - NVC 9-10 Nerves; Future - EMG 2 Extremities; Future - NVC 11-12 Nerves; Future - EMG 2 Extremities; Future Weakness Low back pain at multiple sites Neck pain 79-year-old male with what appears to be a peripheral neuropathy. Definitely in the bilateral lower extremity and may have some involvement of the bilateral upper extremity and a glove-like distribution. He has some mild gait ataxia with numbness and tingling do this. He has been diagnosed with restless leg which may be part of the neuropathy process and he is on Requip for that. He does also have degenerative disc disease in his spine and sees pain management and may have some radiculopathy which could be contributing. We will try to track down any previous films that he has had. He is on Cymbalta and baclofen. There was a question whether he has CIDP/chronic inflammatory demyelinating polyneuropathy. We will do an EMG to look into this further however he has not had cyclical nature of his numbness tingling weakness. Typically with CIDP it is more cyclical. We will do initial neuropathy workup and then decide if we need to do something further like a lumbar puncture to look for elevated proteins pending his course He does have some weakness and debility and he is not exercising like he should and he needs to be doing strengthening exercises on a daily basis. Plan Lab work for neuropathy I will order an electromyograph evaluation of the upper extremities to assess for nerve damage such as cervical radiculopathy, brachial plexopathy, or entrapment mononeuropathy. I will order an electromyograph evaluation of the lower extremities to assess for nerve damage such as lumbar radiculopathy, lumbar plexopathy, or peripheral neuropathy. Consider lumbar puncture pending his course Continue the Requip Continue the Cymbalta Can consider adding in gabapentin or other but he is not having significant pain with this. Regular home exercise program Fall precautions The diagnosis was all discussed with the patient. All questions were answered and they agreed with the treatment plan. Patient will call if there are any new issues or questions. Pt has been fully educated on their diagnosis, treatment options, follow up plan, and return instructions Return to clinic: 3 weeks. documented in this encounter [facility] 08-28-2024 Note [facility] Cardiology Clinic Note Chief Complaint: Patient here for 6 mo follow up afib, CAD, and hypertension. Lisinopril was stopped at last visit in February 2024 due to hypotension. Had routine labs w/ lipid panel in Jun, and had an echo last month. He denies chest pain, SOB, and palpitations. HPI: Oscar Cox is a 79 y.o. male With a known history of [...] least [address] patient inpatient status Update 08/28/2024: Doing well; no new cardiovascular symptoms Blood pressure is better. No further falls. Continues to be on Eliquis with no blood in the urine. Occasionally has bright red blood in the stools after a bowel motion. This is not new. Denies significant lightheadedness, dizziness, or syncope Cardiology ROS: Review of Systems Cardiovascular: Positive for leg swelling. Skin: Positive for color change. Musculoskeletal: Positive for joint pain. All other systems reviewed and are negative. [...] morning and at bedtime., Disp: , Rfl: hydroxychloroquine (Plaquenil) 200 mg [...] by mouth at bedtime., Disp: , Rfl: Last Recorded Vitals BP 118/56 (BP Location: Left arm, Patient Position: Sitting) Pulse 50 Ht 1.778 m (5' 10 ) SpO2 96% BMI 31.85 kg/m??? Physical Examination: GENERAL: alert and oriented x3, well developed, in no acute distress. HEAD: atraumatic, normocephalic. EYES: AEB, EOMI. NECK: trachea midline, no JVD present, [...] mitral valve regurg CVl report 07/03/2020 Cardiovascular (more content not included)... [facility] 03-05-2024 History of Present illness Narrative Images from the original note were not included. [id number] [place] [address] [address] [facility] [id number] Patient: Oscar Cox Date of : 1945 Encounter Date: 03/05/2024 History of Present Illness: Chief Complaint: ANNUAL W / PSA The patient is a 78 y.o. male, an established patient, and is here for followup. He has a history of adenocarcinoma prostate T1c Alem 3 + 3 equal 6 in 3 cores on saturation biopsy diagnosed in December 2014. He elected active surveillance. His initial PSA was 6.1 and pablo and underwent MRI that was negative in June 2015. He has had follow-up biopsies because of the persistently elevated PSA and that was benign in October of 2016. His PSA has continued to fluctuate. It risen up to 19 in November 2018 and on recheck his improved back to 17. He underwent a prostate ultrasound biopsy September 18, 2019. His follow-up biopsy shows similar findings with 2 cores containing Alem 3 + 3 equal 6 in less than 5% of each. His PSA has risen further to 21 in November but has improved again to 19 but then up to 30. He underwent a 3 vee MRI November 09, 2020 showing a PI rads 5 lesion measuring 27 mm with a prostate volume of 50 g. Repeat biopsy showed [place] 3+4=7 in 5 cores and 3+3=6 in 1 core. No bone pain. He underwent bone scan 01/08/21 that was negative for metastatic disease. He underwent radiation completed in June 2021. He additionally received lupron. PSA remains undetectable. Was uses oxybutynin prn when leaving the house. Occasional leakage. No hematuria Used to walk with a walked. Now using a wheelchair Summary of old records: Urinalysis today: No results for input(s): EXTPOCURCO , EXTPOCURCH , EXTPOCAPP , EXTPOCURBS , EXTPOCURBIL , EXTPOCUKET , EXTPOCUSPG , EXTPOCUHGB , EXTPOCUPRO , EXTPOCUURO , EXTPOCULEU , EXTPOCUNIT , EXTPOCUWBC , EXTPOCUBLD , EXTPOCURBC , EXTPOCUCRY , EXTPOCUBAC , EXTPOCUTREP , EXTPOCUPH , EXTPOCULEE in the last 72 hours. Last BUN and creatinine: Lab Results Component Value Date BUN 9 12/10/2020 Lab Results Component Value Date CREATININE 0.86 02/02/2021 Last PSA: Lab Results Component Value Date PSA <0.13 03/01/2023 PSA <0.13 02/16/2022 PSA <0.05 07/12/2021 PSA 26.60 (H) 01/19/2021 PSA 30.55 (H) 08/27/2020 No results found for: PROSTATICSP Additional Lab/Culture results: None Imaging Reviewed during this Office Visit: None (Results were independently reviewed by physician and radiology report verified) Past Medical, Family, and Social History Update: The following portions of the patient's history were reviewed and updated as appropriate: allergies, current medications, past family history, past medical history, past social history, past surgical history and problem list. Past Medical History: Diagnosis Date Angina pectoris (CMS-HCC) Arthritis Atrial fibrillation (CMS-HCC) Benign prostatic hyperplasia Dental disease teeth in poor repair GALICIA (dyspnea on exertion) H/O degenerative disc disease Hematuria Hyperlipidemia Hypertension Irregular heart beat Peripheral vascular disease (CMS-HCC) Prostate cancer (CMS-HCC) Rash on head-rash Visual impairment Past Surgical History: Procedure Laterality Date BACK SURGERY CARDIAC CATHETERIZATION EYE SURGERY 04/2020 Cyst in lower right eyelid HAND SURGERY Left joint replaced NEEDLE BIOPSY FUSION PROSTATE N/A 12/21/2020 Performed by Pasha Fernandes MD at [facility] AMBULATORY SURGERY OTHER SURGICAL HISTORY finger joint repair PROSTATE BIOPSY PROSTATE BIOPSY TONSILLECTOMY TOTAL HIP ARTHROPLASTY Right 2013 Family History Adopted: Yes Problem Relation Age of Onset Heart disease Father Current Outpatient Medications Medication Sig Dispense Refill amLODIPine (NORVASC) 10 mg tablet Take 8 tablets (80 mg total) by mouth in the morning. furosemide (LASIX) 20 mg tablet Take 2 tablets (40 mg total) by mouth 2 (two) times a day. hydrALAZINE (APRESOLINE) 50 mg tablet Take 1 tablet (50 mg total) by mouth in the morning and 1 tablet (50 mg total) before bedtime. hyoscyamine (LEVSIN) 0.125 mg SL tablet hyoscyamine 0.[address] 1 (ONE) TABLET UNDER THE TONGUE FOUR TIMES DAILY NEEDED rOPINIRole (REQUIP) 1 mg tablet Take 1 tablet (1 mg total) by mouth nightly. acetaminophen (TYLENOL) 325 mg tablet Take 2 tablets (650 mg total) by mouth every 4 (four) hours as needed for pain. (Patient not taking: Reported on 03/05/2024) apixaban (ELIQUIS) 5 mg tablet Take 1 tablet (5 mg total) by mouth in the morning and 1 tablet (5 mg total) before bedtime. (Patient not taking: Reported on 03/05/2024) atorvastatin (LIPITOR) 80 mg tablet Take 1 tablet (80 mg total) by mouth in the morning. (Patient not taking: Reported on 03/05/2024) carvediloL (COREG) 12.5 mg tablet Take 1 tablet (12.5 mg total) by mouth in the morning and 1 tablet (12.5 mg total) in the evening. Take with meals. (Patient not taking: Reported on 03/05/2024) celecoxib (CeleBREX) 100 mg capsule Take 1 capsule (100 mg total) by mouth in the morning. (Patient not taking: Reported on 03/05/2024) hydrOXYchloroQUINE (PLAQUENIL) 200 mg tablet Take by mouth daily. (Patient not taking: Reported on 03/05/2024) oxybutynin (DITROPAN) 5 mg tablet TAKE 1 TABLET BY MOUTH THREE TIMES DAILY (Patient not taking: Reported on 03/05/2024) 90 tablet 3 oxybutynin XL (DITROPAN-XL) 5 mg 24 hr tablet Take 1 tablet (5 mg total) by mouth in the morning. (Patient not taking: Reported on 03/05/2024) 90 tablet 3 potassium chloride (K-TAB,KLOR-CON) 10 MEQ CR tablet Take 1 tablet (10 mEq total) by mouth in the morning. (Patient not taking: Reported on 03/05/2024) triamcinolone (KENALOG) 0.1 % cream Apply 1 Application topically in the morning and 1 Application before bedtime. (Patient not taking: Reported on 03/05/2024) No current facility-administered medications for this visit. (All medications reviewed and updated by provider since last office visit or hospitalization) Allergies: Patient has no known allergies. Tobacco History: Social History Tobacco Use Smoking Status Former Current packs/day: 0.00 Average packs/day: 1 pack/day for 20.0 years (20.0 ttl pk-yrs) Types: Cigarettes Start date: 12/21/1964 Quit date: 12/21/1984 Years since quittin.2 Smokeless Tobacco Never Tobacco Comments quit 35 years ago for 20 years (If patient a smoker, smoking cessation counseling offered) Social History: Social History Substance and Sexual Activity Alcohol Use Yes Review of Systems: General: Negative for chills and fever. Cardiovascular: Negative for chest pain and shortness of breath. Gastrointestinal: Negative for constipation, diarrhea, nausea, and vomitting. -per HPI Physical Exam: BP 101/58 Pulse 52 Ht 175.3 cm (5' 9 ) Wt 127.9 kg (282 lb) BMI 41.64 kg/m Assessment and Plan: Oscar was seen today for follow-up. Diagnoses and all orders for this visit: Prostate cancer ([facility]) Problem List Genitourinary Prostate cancer ([facility]) - Primary Overview T1c adenocarcinoma prostate Alem 3+3 equals 6 in 3 cores on saturation biopsy 12/28. PSA 6.1 On active surveillance Prostate MRI 06/30 with no suspicious foci (volume 24) Rising PSA 14.24 June 2016 Repeat PSA 14.01 September 2016 Repeat biopsy October 2016 Benign PSA continues to be elevated and fluctuating. His exam is benign. WHile possible that he has a more aggressive tumor despite negative biopsies, he has had an MRI as well as repeat biopsy after initial diagnosis which did not show any additional aggressive tumor. By mutual agreement we are going to continue to follow him. 07/10/18: PSA stable elevated at 14.41. Plan to recheck 6 months 01/22/19: PSA increased to 19 in Nov and decreased to 17 02/01. He should get a biopsy based on time alone sometime in the next year. Plan recheck psa 6 months 07/30/19: psa 18.8. Plan pus/bx. Will need permission to hold eliquis 09/18/19 PUS/Bx, vol 21.3 gms 10/01/19: Alem 3+3=6 in <5% of 2 cores right base. There continues to be a discrepancy between his PSA and prostate cancer volume. Plan recheck 6 months. May consider repeat MRI if PSA continues to rise 04/07/20: PSA 21.03 (from 12/02/19) But then improved again to 19. Plan recheck in 3-4 months 08/31/20: PSA 30. Plan 3T MRI 11/10/20: MRI with PI RADS 5 lesion 27 mm. Plan for targeted biopsy 12/29/20: Pathology demonstrating Alem 3+4=7 in 5 cores 5-70% cores including PI rads 5 lesion seen above. Plan for bone scan. If negative might consider xrt and adt given longevity in the family (father lived to his 80s, mother into her 90s) 01/19/21: Bone scan negative. Referral given to radiation oncology. lupron scheduled in 3 weeks. 07/27/21: Completed xrt Jun 2021. Plan Lupron 2 years Recheck psa 6 months 02/22/22: psa still undetectable. Continue lupron, recheck 6 months 09/06. psa undetectable. Continue lupron (last shot today), recheck 6 montsh 03/07/23: PSA undetectable. Stop lupron after today. Recheck psa 6 months 03/05/24: psa undetectaable. Recheck 6 montsh, return here 1 year with psa Follow-up: Pietro Torre MD This note was created with the assistance of a speech recognition program. While intending to generate a timely document that accurately reflects the content of the visit, no guarantee can be provided that every grammatical or spelling mistake has been or will be identified or corrected. Thank you for your understanding. documented in this encounter [facility] 02-19-2024 Note [facility] Cardiology Clinic Note Chief Complaint: Patient here for follow up [facility] for elevated troponin and bradycardia. He [...] 07/03/2020 Cardiovascular Laboratory Report FINAL IMPRESSIONS: 1. Zoig-hx-phxjvggo 3-vessel coronary artery disease. 2. Sxbu-hq-tajawajl left main coronary artery disease that appears unchanged from prior angiography. 3. Normal global left ventricular (more content not included)... [facility] 12-13-2023 Note [facility] Cardiology Clinic Note Chief Complaint: [...] 07/03/2020 Cardiovascular Laboratory Report FINAL IMPRESSIONS: 1. Tuva-ow-xwldpwbr 3-vessel coronary artery disease. 2. Rcaz-jk-zdwrdypb left main coronary artery disease that appears [...] atrium is sever (more content not included)... 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 His primary roofer assistant is Dr Shiloh Hester. He has [...] Latest known visit (more content not included)... [facility] 03-28-2023 Note Chief Complaint consultation for colonoscopy [...] informed consent obtained. 2. Chronic anticoagulation (Z79.01: watermaster (current) use of anticoagulants) hold Eliquis 2 [...] SARS-CoV-2 (COVID-19) mRNA BNT-162b2 vax 04/09/2021 Recorded [facility] Comment on above: Result Comment: Elec tronically Signed By: HOWIE LOPEZ, Zhang Yan\Date and Time Signed: 03/28/23 20:17 EDT Evaluation + Plan note No data available for this section General Surgery [place] Evaluation note Diagnosis Peripheral neuropathy, idiopathic- Primary Numbness and tingling Disturbance of skin sensation Weakness Other malaise and fatigue Low back pain at multiple sites Neck pain Cervicalgia [facility] Peripheral neuropathy, idiopathic Numbness and tingling Disturbance of skin sensation [facility] Diagnosis Peripheral neuropathy, idiopathic Numbness and tingling Disturbance of skin sensation [facility] Diagnosis Primary osteoarthritis of right shoulder- Primary Tear of right rotator cuff, unspecified tear extent, unspecified whether traumatic Chronic right shoulder pain Pain in joint, shoulder region [facility] Diagnosis Prostate cancer ([facility])- Primary Malignant neoplasm of prostate documented in this encounter [facility] Discharge instructions No data available for this section General Surgery [place] InstructionsNot on filedocumented in this encounter [facility] System[facility]ructionsNot on filedocumented in this encounter [facility] SystemProgress note No data available for this section General Surgery [place] Summary Purpose Family History No Family History [...] and content) DATE CREATED AUTHOR 07/07/2020 [facility] DATE CREATED AUTHOR AUTHOR'S ORGANIZ ATION 03/02/2023 [facility] [place] [facility] DATE CREATED AUTHOR AUTHOR'S ORGANIZ ATION 03/08/2024 [facility] DATE CREATED AUTHOR AUTHOR'S ORGANIZ ATION 03/12/2024 [facility] DATE CREATED AUTHOR AUTHOR'S ORGANIZ ATION 08/30/2024 [facility] DATE CREATED AUTHOR AUTHOR'S ORGANIZ ATION 12/18/2024 [facility] dical Specialists EPIC Patient Care team informatio n (unrecognized section and content) Professor Of Communication Arts Relationship Specialty Start Date End Date Neo Gould MD [address] [place] [address] PCP - General Family Medicine 02/24/23 Professor Of Communication Arts Relationship Specialty Start Date End Date Neo Gould MD [address] [place] [address] PCP - General Family Medicine 02/24/23 Professor Of Communication Arts Relationship Specialty Start Date End Date Neo Gould MD [address] [place] [address] PCP - General Family Medicine 02/24/23 Professor Of Communication Arts Relationship Specialty Start Date End Date Neo Gould MD [address] [place] [address] PCP - General Family Medicine 02/24/23 Professor Of Communication Arts Relationship Specialty Start Date End Date Neo Gould MD [address] [place] [address] PCP - General Family Medicine 02/24/23 Tejas Saab DO [address] [place] [address] Referring Physician Neurology 09/30/24 Professor Of Communication Arts Relationship Specialty Start Date End Date Neo Gould MD [facility] [place] [address] PCP - General Family Medicine 02/24/23 Tejas Saab DO [address] [address] Referring Physician Neurology 09/30/24 Professor Of Communication Arts Relationship Specialty Start Date End Date Neo Gould MD [address] [place] [address] PCP - General Family Medicine 02/24/23 Tejas Saab DO [address] [address] Referring Physician Neurology 09/30/24 Professor Of Communication Arts Relationship Specialty Start Date End Date Neo Gould MD [address] [place] [address] PCP - General Family Medicine 01/10/19 Professor Of Communication Arts Relationship Specialty Start Date End Date Neo Gould MD PCP - General Family Medicine 01/10/19 Reason for Visit (unrecogniz ed section and content) Reason Comments [facility] Specialty Diagnoses / Procedures Referred By Conteveline t Referred To Contact Neurology Diagnoses ? Chronic inflammatory demyelinating polyneuropathy, labs @ [facility] , no other testing, ref by Dr Gould Procedures NEURO NEW PATIENT Neo Gould MD [address] [facility] [place] [address] Phone: tel:[phone] fax: Tejas Saab DO [address] [place] [address] Phone: tel: fax: Referral ID Status Reason Start Date Expiration Date V isits Requested Visits Authorized [id number] Closed Consult and Treat 08/05/2024 02/01/2025 1 1 Reason Comments Pain Reason Comments Follow-up ANNUAL W / PSA FOR RECORDS PERTAINING TO PATIENTS WHO ARE [...] BE BASED ON THE PRIMARY CLINICAL RECORDS. [employer] provides no warranty or guarantee of the accuracy or completeness of information in this document.
[2024-12-26 17:28] LABS: Free T3 2.61 pg/mL (2.18-3.98); Thyroid Stimulating Hormone 2.814 uIU/mL (0.358-3.740)
== END 2024-12-26 16:32 | disposition home or self-care (01) ==
LOC: LAB 16:44
PROVIDERS: PCP Family Medicine; Visit Provider Family Medicine
DX: E03.9 Hypothyroidism, unspecified (principal)
CPT/HCPCS: 36415; 84436; 84443; 84481

== ENCOUNTER 2025-02-06 14:42 | Outpatient (OUT) | payer MEDICARE, SELFPAY ==
[2025-02-06 15:03] LABS: Basophils Percent Auto 0.5 % (0.2-2.0); Eosinophils Absolute Auto 0.1 10^3/uL (0.0-0.7); Eosinophils Percent Auto 2.3 % (0.9-7.0); Hematocrit 35.5 % (42.0-54.0); Hemoglobin 11.5 g/dL (14.0-18.0); Immature Granulocytes Abs Auto 0.01 10^3/uL (0.00-0.03); Immature Granulocytes Pct Auto 0.3 % (0.0-0.5); Lymphocytes Absolute Auto 0.9 10^3/uL (1.2-3.8); Lymphocytes Percent Auto 23.7 % (20.5-60.0); Mean Corpuscular HGB Conc 32.4 g/dL (29.9-35.2); Mean Corpuscular Hemoglobin 30.3 pg (25.9-34.0); Mean Corpuscular Volume 93.4 fL (80.0-94.0); Mean Platelet Volume 11.8 fL (9.5-13.5); Monocytes Absolute Auto 0.5 10^3/uL (0.3-0.8); Monocytes Percent Auto 11.7 % (1.7-12.0); Neutrophils Absolute Auto 2.4 10^3/uL (1.4-6.5); Neutrophils Percent Auto 61.5 % (43.0-75.0); Platelet Count 138 10^3/uL (150-450); Red Cell Distribution Width 16.7 % (11.0-15.0); White Blood Count 3.9 10^3/uL (4.0-11.0)
[2025-02-06 15:31] LABS: Estimated Average Glucose 105 mg/dL; Glycohemoglobin A1C 5.3 % (4.5-6.2)
[2025-02-06 15:42] LABS: Alanine Aminotransferase 37 U/L (16-63); Albumin Level 3.3 g/dL (3.4-5.0); Alkaline Phosphatase 136 U/L (46-116); Anion Gap 10.9; Aspartate Amino Transferase 31 U/L (15-37); BUN Creatinine Ratio 18.6; Bilirubin Total 0.7 mg/dL (0.2-1.0); Calcium 9.8 mg/dL (8.5-10.1); Chloride 105 mmol/L (98-107); Cholesterol 128 mg/dL (<=200); Estimated GFR (African America >60 (>=60 mL/min/1.73m^2); Estimated GFR (Non-African Ame 60 (>=60 mL/min/1.73m^2); Free T3 2.63 pg/mL (2.18-3.98); Globulin 3.3 g/dL; Glucose 74 mg/dL (74-106); HDL Cholesterol 65 mg/dL (40-60); Potassium 3.9 mmol/L (3.5-5.1); Sodium 143 mmol/L (136-145); Thyroid Stimulating Hormone 2.881 uIU/mL (0.358-3.740); Total Protein 6.6 g/dL (6.4-8.2); Triglycerides 69 mg/dL (<=150); VLDL CHOLESTEROL 13.8 mg/dL
[2025-02-06 15:47] LABS: Prostate Specific Antigen Scrn <0.13 ng/mL (<=4.00)
== END 2025-02-06 14:43 | disposition home or self-care (01) ==
LOC: LAB 14:42
PROVIDERS: PCP Family Medicine; Visit Provider Family Medicine
DX: I25.10 Atherosclerotic heart disease of native coronary artery without angina pectoris (principal); I48.91 Unspecified atrial fibrillation; E03.9 Hypothyroidism, unspecified; E78.5 Hyperlipidemia, unspecified; R73.09 Other abnormal glucose; Z12.5 Encounter for screening for malignant neoplasm of prostate; I50.30 Unspecified diastolic (congestive) heart failure; I11.0 Hypertensive heart disease with heart failure
CPT/HCPCS: 36415; 80053; 80061; 83036; 83880; 84436; 84443; 84481; 85025; G0103

== ENCOUNTER 2025-02-06 15:01 | Outpatient (OUT) | payer MEDICARE, SELFPAY ==
--- NOTE | 2025-02-06 15:42 | P.CN_ITS ---
Consult Note: HPI Data of Consult Patient: known to practice within the last 3 years Requesting Physician: Radha Mireles NP Primary Care Provider: Javier Gould MD Consult Narrative Reason for consult: f/u Narrative: Oscar Cxo a pleasant 79 year old male presents for evaluation of generalized OA pain, most significantly his cervical spine. Patient rating pain 4-5/10 today increasing with weather changes, sitting, standing, activity. Pain improved with sleep and lying down. Pt has failed to benefit from greater than 6 weeks of PT, cannot take NSAIDs due to eliquis, finds no benefit to heat/ice. patient utilizing PRN tylenol, duloxetine 20mg, topical lidocaine and baclofen 5mg BID PRN with mild relief.. previously underwent bilateral C2-3 C3-4 MBB #1 provided >80% improvement immediately following and hours after the procedure, preop pain 7/10, post op 1-210. cc:: CC: Radha Mireles NP Review of Systems ROS Status of ROS 10 or more systems reviewed and unremark able except as noted in history and below Musculoskeletal Reports: back pain, neck pain and extremity pain PFSH FOR[facility]LY [facility], 1928–1983 Medical History (Updated 07/26/24 @ 16:38 by Jonnathan Kline MD) Fall ?W19.XXXA - Unspecified fall, initial encounter (ICD-10) Weakness ?R53.1 - Weakness (ICD-10) Inability to walk ?R26.2 - Difficulty in walking, not elsewhere classified (ICD-10) Near syncope ?R55 - Syncope and collapse (ICD-10) Left leg weakness ?R29.898 - Other symptoms and signs involving the musculoskeletal system (ICD-10) Leg pain, left ?M79.605 - Pain in left leg (ICD-10) Frequent falls ?R29.6 - Repeated falls (ICD-10) Bradycardia with 31-40 beats per minute ?R00.1 - Bradycardia, unspecified (ICD-10) Hypokalemia ?E87.6 - Hypokalemia (ICD-10) PVC (premature ventricular contraction) ?I49.3 - Ventricular premature depolarization (ICD-10) Lower extremity edema ?R60.0 - Localized edema (ICD-10) Obesity ?E66.9 - Obesity, unspecified (ICD-10) Hypertension ?I10 - Essential (primary) hypertension (ICD-10) Prostate cancer ?C61 - Malignant neoplasm of prostate (ICD-10) Colon polyps ?K63.5 - Polyp of colon (ICD-10) Heart failure, diastolic ?I50.30 - Unspecified diastolic (congestive) heart failure (ICD-10) Coronary arteriosclerosis ?I25.10 - Atherosclerotic heart disease of [place] coronary artery without angina pectoris (ICD-10) Chronic anticoagulation ?Z79.01 - residential (current) use of anticoagulants (ICD-10) Cervical disc disease ?M50.90 - Cervical disc disorder, unspecified, unspecified cervical region (ICD-10) Atrial fibrillation ?I48.91 - Unspecified atrial fibrillation (ICD-10) Surgical History History of tonsillectomy and adenoidectomy ?Z90.89 - Acquired absence of other organs (ICD-10) H/O lumbar discectomy ?Z98.890 - Other specified postprocedural states (ICD-10) H/O total hip arthroplasty ?Z96.649 - Presence of unspecified artificial hip joint (ICD-10) H/O colonoscopy with polypectomy ?Z98.890 - Other specified postprocedural states (ICD-10) ?Z86.010 - Personal history of colonic polyps (ICD-10) Family History Other Family history not known due to adoption Social History Within the past year, how often did you have a drink containing alcohol: never Score interpretation: A score less than 4 is consistent with normal alcohol consumption. 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 Known occupational exposures/hazards: No Highest level of school completed/degree received: high school graduate Do you want help with school or training: No Are you now , , , , never or living with a partner: In a typical week, how many times do you talk on the telephone with family, friends, or neighbors: 3 or more times per week How often do you get together with friends or relatives: once per week How often do you attend nondenominational or scientologist services: never Do you belong to any clubs or organizations such as nondenominational groups unions, [employer] or athletic groups, or school groups: no Total score: 1 Score interpretation: A score of less than or equal to 1 indicates the most socially isolated. Little interest or pleasure in doing things: not at all Feeling down, depressed, or hopeless: not at all Feel stressed/tense/nervous/anxious/difficulty sleeping: not at all Due to disability, difficulty making decisions: No Do you think of yourself as: straight/heterosexual Gender Identity: male Meds Home Medications and Allergies Home Medications ?Medication ?Instructions ?Recorded ?Confirmed ?Type furosemide 40 mg tablet 40 mg PO Q12H 04/12/23 07/16/24 History acetaminophen 500 mg tablet 1,000 mg (2 x 500 mg) PO Q6H PRN 05/02/23 07/16/24 Rx (Tylenol Extra Strength) Pain Scale 1-3 #120 tabs apixaban 5 mg tablet (Eliquis) 5 mg PO Q12H 01/20/24 07/16/24 History hydralazine 50 mg tablet 50 mg PO BID #60 tabs 02/16/24 07/16/24 Rx ropinirole 1 mg tablet 1 mg PO QHS #30 tabs 02/16/24 07/16/24 Rx atorvastatin 80 mg tablet 80 mg PO DAILY 04/02/24 07/16/24 History carvedilol 12.5 mg tablet 6.25 mg PO Q12H 04/02/24 07/16/24 History multivitamin 1 tab PO DAILY 04/02/24 07/16/24 History methylprednisolone 4 mg tablets in 4 mg PO DAILY #21 ea 07/26/24 Rx a dose pack (Medrol (Redd)) baclofen 10 mg tablet See Rx Instructions .Route 08/29/24 Rx .COMPLEX PRN muscle spasm #60 tabs duloxetine 20 mg capsule,delayed 20 mg PO .HS #30 caps 08/29/24 Rx release (Cymbalta) Allergies Allergy/AdvReac Type Severity Reaction Status Date / Time No Known Drug Allergies Allergy Verified 07/16/24 09:24 Exam Constitutional Documenting provider has reviewed patient's vital signs: yes Common normals: no apparent distress, oriented x3, healthy appearing, alert and well nourished General appearance: cooperative HENMT Common normals: normocephalic, hearing grossly normal bilaterally and moist oral mucous membranes Head and scalp: normocephalic Eye Common normals: PERRL Pupil: PERRL Neck & C-Spine Common normals: full ROM General: normal visual inspection Cervical spine: cervical ROM normal, pain with cervical ROM and cervical spine tenderness; no paracervical muscle tenderness, no paracervical muscle spasm and no trapezius muscle tenderness Other: positive facet loading C2-4 right greater than left negative spurlings strength 5/5 in BUE Chest Common normals: inspection of chest normal Respiratory Common normals: normal respiratory effort, no retractions and no use of accessory muscles Neuro Common normals: oriented x3, CN's II-XII intact bilaterally, moves all extremities, no focal motor deficits, no sensory deficits noted and deep tendon reflexes 2+ bilaterally Sensorium/orientation: alert Motor exam: strength 5/5 throughout and no movement abnormalities noted Psych Common normals: mental status grossly normal, thought process normal, cooperative, affect normal, speech normal and activity/motor behavior normal Speech: normal speech Thought process: normal thought process Results Additional Findings Additional findings: If on a controlled substance or opioids, I have checked an [place]AR[place] report on this patient and there are no aberrancies noted in the prescribing history.??If on a controlled substance or opioid a drug screen was completed and reviewed within the last year, and if there has not been a drug screen completed we ordered one today to monitor higher risk, state monitored pain medication use. As part of providing excellent, safe, comprehensive care, the following was completed at our patient's visit: 1. A medication reconciliation and review to ensure accurate knowledge of current/active medications, including asking our patients to inform us about any [id number] medications or herbal remedies/nutritional supplements/alternative remedies. 2. A review to specifically ensure our patients have had annual screening for screening for depression, screening for tobacco use, and screening for unhealthy alcohol use. For concerning screenings had a discussion with the patient, provided patient education, and recommended follow-up with primary care provider when appropriate. If patient noted with a risk of falling, they received education on strength, gait, and balance training to prevent future risk of falling. Assessment and Plan Assessment and Plan (1) Cervical spondylosis: Assessment and Plan: The patient has had over 3 months of moderate to severe neck pain with functional impairment and inadequate response to conservative care including NSAIDS (unless there are contraindication such as concurrent blood thinners), multiple oral or topical pain medications, and home exercise program/physical therapy.? Patient has completed >6 weeks of guided home exercise program and/or formal physical therapy program without relief of their symptoms.? I have reviewed the imaging of the cervical spine and no red flags were identified.? The imaging reveals radiographic findings consistent with cervical spondylosis The Oswestry Disability Index was completed, and the patient scored a 45%. with moderate to severe pain impacting ADLs, sleep, social life, travel ?? We discussed the risks and benefits of the procedure with the patient, and we are NOT planning on using sedation as outlined in the guidelines from Medicare unless there is a documented reason that sedation would be strongly recommended.?? ?The procedure will be completed with fluoroscopic guidance.? (2) Myofascial pain: (3) Generalized OA: (4) Chronic pain syndrome: Plan bilateral C2-3 C3-4 MBB #2 working towards RFA to be completed under fluoroscopy, risks vs benefits reviewed continue duloxetine 20mg HS for generalized OA, CPS f/u after each injection
== END 2025-02-06 15:02 | disposition home or self-care (01) ==
LOC: PM 15:01
PROVIDERS: PCP Family Medicine; Visit Provider Nurse Practitioner
DX: M47.812 Spondylosis without myelopathy or radiculopathy, cervical region (principal); M79.18 Myalgia, other site; M15.9 Polyosteoarthritis, unspecified; G89.4 Chronic pain syndrome
CPT/HCPCS: G0463

== ENCOUNTER 2025-03-03 08:46 | Day surgery (SDC) | payer MEDICARE, SELFPAY ==
[2025-03-03 09:33] VITALS: BP 148/80; PULSE 48; TEMP 36.1; O2SAT 97
[2025-03-03 10:15] VITALS: BP 172/77; PULSE 40; O2SAT 97
[2025-03-03 10:17] VITALS: BP 167/71; PULSE 46; O2SAT 97
[2025-03-03] MEDS: BUPIVACAINE HCL 0.25% PF 25 MG/10 ML VIAL 3 ML INJ (10:18)
[2025-03-03] MEDS: LIDOCAINE HCL 2% 400 MG/20 ML MDV INJ (10:18)
--- NOTE | 2025-03-03 10:21 | W.PM.PROCNOT ---
Date of procedure: 03/03/25 Pre-op diagnosis: Pain due to cervical spondylosis without myelopathy Post-op diagnosis: same as pre-op Procedure: Procedure: Right C2-3, 3-4 medial branch block Medications: Bupivacaine 0.25% 3cc The patient was seen and examined in the preoperative holding area.? The informed consent was obtained and placed on the chart.? The patient was brought to the medical procedure unit and placed in the prone position.? A timeout was completed verifying correct patient, procedure site, positioning, plan, and special equipment.? Using aseptic technique, the needle is placed at right C2. Under direct fluoroscopic visualization, a Quincke tip needle was advanced to the midpoint of the waist of the articular pillar at the respective medial branch segment. The above-mentioned injectate was placed in a 1 mL aliquot proceeded by negative aspiration.? The needle was removed.? The procedure was completed at right C3, 4. Insertion site was covered.? Patient was taken to the postprocedural recovery area and monitored for an appropriate length of time before found suitable for discharge in the accompaniment of a responsible adult. Anesthesia: Local Surgeon: Neto Ortiz Pathology: none sent Condition: stable Disposition: no change
== END 2025-03-03 10:25 | disposition home or self-care (01) ==
LOC: SURGOUT 08:47
PROVIDERS: PCP Family Medicine; Visit Provider Anesthesiology
DX: M47.812 Spondylosis without myelopathy or radiculopathy, cervical region (principal); M54.2 Cervicalgia
CPT/HCPCS: 64490; 64491; J0665

== ENCOUNTER 2025-03-05 03:51 | Emergency (ER) | payer MEDICARE, SELFPAY ==
--- OUTSIDE RECORDS SUMMARY | 2024-03-06 10:15 | XMS_ITS ---
Author Organization [facility] Address [address] [place] [address] [place] [address] Care Team Providers Care Cardiac Nurse Name Role Phone Korina Willard Primary Care Provider UnavailGiancarlo Pearson Unavailable [phone] Encounters Encounter Location Date Provider Diagnosis [address] [address] 03/06/2024 Giancarlo Arthur Plan Of Treatment No Information Progress Notes * Oscar COXDOB:1945 ( 79 yo M)Acc No.[id number]:03/06/2024 Patient: Oscar GREENE Provider: Laura Arthur DPM :1945 A ge:78 Y S ex:Male Date:03/06/2024 Phone: Address:[facility] Pcp:Korina Willard Subjective: * Chief Complaints: * * Medical History: Objective: * Vitals: Assessment: Plan: * Treatment: * Images: * Electronic signature of [place] in [place] Arthur on 03/05/2025 at 04:07 AM EDT Sign off status: Pending * Provider: Laura Arthur DPM Date: 03/06/2024 Generated for Melissa guerra/David/eTarelismitting on: 03/05/2025 04:07 AM EDT
--- OUTSIDE RECORDS SUMMARY | 2024-12-26 14:42 | XMS_ITS ---
Author Organization [facility] [place] Address [address] [place] [address] Care Team Providers Care Shoe Caser Name Role Phone Zackery Gould Primary Care Provider REASON FOR VISIT review thyroid labs Encounters Encounter Location Date Provider Diagnosis [facility] [address] [place] [address] 12/26/2024 Zackery Gould Plan Of Treatment No Information Progress Notes * Oscar COXDOB:1945 ( 79 yo M)Acc No.[id number]:12/26/2024 Patient: Demarcus Oscar REINOSO :1945 A ge:79 Y S ex:Male Address:[address] [place] [address] [address], [place], [address] * true * Date: Generated for Printi ng/Faxing/eTransmitting on: 0 03/05/2025 04:07 AM EDT
--- OUTSIDE RECORDS SUMMARY | 2025-02-03 12:30 | XMS_ITS ---
Author Organization [facility] [place] Address [address] [place] [address] Care Team Providers Care Grocery Manager Name Role Phone Zackery Gould Primary Care Provider [phone] Allergies No Known Allergies Results Component Value Reference Range Notes BNP Reviewed date:02/06/2025 06:41:27 PM Interpretation: Performing Lab: Notes/Report: [facility] , NT Pro B Type Natriuretic Pept 1072.0 <=1800.0 p g/mL Performing Lab: see note ML - [facility] LB REASON FOR VISIT patient has a list of bps from the last 3 days, 98/64, 100/56, 104/86, pulse has been in the 30s, patient reports, no dizziness, no chest pains, some neck pains, maybe some slight confusion, states hes eating and drinking appropriately, patient also would like to report low urine output, no pain with urination but does say sometimes there is a foul odor Medications Medication SIG (Take, Route, Frequency, Duration) Notes Start Date End Date Status Centrum Adult Active Acetaminophen 500 MG 2 capsule as needed Orally twice daily 03/20/2024 Active Synthroid 50 MCG 1 tablet in the morn ing on an empty stomach Orally Once a day for 30 days 09/24/2024 Active Atorvastatin Calcium 80 mg TAKE 1 TABLET BY MOUTH DAILY for 90 Active hydrALAZINE HCl 50 MG 1 tablet with food Orally twice daily for 30 days 03/20/2024 Active Furosemide 40 mg TAKE 1 TABLET BY DEEJAY TH TWICE DAILY for 90 Active Spironolactone 50 MG 1 tablet Orally bid for 3 days 3 days 06/26/2024 Active rOPINIRole HCl 1 MG 1 tablet 1 to 3 hour s before bedtime Orally Once a day for 30 days 03/20/2024 Active oxyBUTYnin Chloride 5 MG 1 tablet Orally prn PRN Active Eliquis 5 MG 1 tablet Orally BID for 90 days Active Social History Tobacco Use: Social History Observation Description Date Details (start date - stop date) Never Smoker NA - NA Tobacco Use/Smoking Question Answer Notes Patient is a nonsmoker AUDIT-C (Standard) Question Answer Notes Did you have a drink containing alcohol in the p ast year? No Points 0 Interpretation Negative Vital Signs Height 70 in 02/03/2025 Blood pressure systolic 92 mm Hg 02/04/20 25 Blood pressure diastolic 58 mm Hg 025 Procedures Procedure Date Ordered Date Performed Result Body Sit e Cerumen Removal - performed 02/03/2025 N/A Encounters Encounter Location Date Provider Diagnosis [facility] [address] [place] [address] 02/03/2025 Zackery Hoy Hypertension I10 ; C AD (coronary artery disease) I25.10 ; Atrial fibrillation I48.91 ; Hypothyroidism E03.9 ; Cerumen impaction H61.20 and Bilateral impacted cerumen H61.23 Assessments Encounter Date Diagnosis (ICD Code) Assessment Notes Treatment Notes Treatment Clinical Notes Section Notes 02/03/2025 Hypertension (ICD-10 - I10) 02/03/2025 CAD (coronary artery disease) (ICD-10 - I25.10) 02/03/2025 Atrial fibrillation (ICD-10 - I48.91) 02/03/2025 Hypothyroidism (ICD-10 - E03.9) 02/03/2025 Cerumen impaction (ICD-10 - H61.20) 02/03/2025 Bilateral impacted cerumen (ICD-10 - H61.23) Plan Of Treatment Pending Test Test Name Order Date HEMOGLOBIN A1C (GLYCO) 02/03/2025 LIPID PANEL (CHOL/TRIG/HDL/LDL) 02/04/20 25 Cerumen Removal - performed 02/03/2025 THYROID PANEL (T4/TSH/FREE T3) PSA, SCREENING 02/03/2025 CMP (COMP MET LOPEZ) w/eGFR CKD-EPI 2024 CBC WITH DIFF 02/03/2025 Progress Notes * Oscar COX:1945 ( 79 yo M)Acc No.[id number]:02/03/2025 Progress Note Patient: Oscar GREENE Provider: Brian Gould ([facility])MD :1945 A ge:79 Y S ex:Male Date:02/03/2025 Address:[address] [place], [place] [id number] Check In:04:31 PM ESTCheck O ut:05:26 PM EST Subjective: * Chief Complaints: * P atient has a list of bps from the last 3 days, 98/64, 100/56, 104/86, pulse has been in the 30s, patient reports, no dizziness, no chest pains, some neck pains, maybe some slight confusion, states hes eating and drinking appropriatelyPatient also would like to report low urine output, no pain with urination but does say sometimes there is a foul odor * HPI: G eneral: earpain dry mouth l ow bp decreased urine output. * ROS: E ENT: hearing changes d enies. v isual changes d enies.?non-healing mouth sores d enies. s wollen glands or neck lumps d enies. h oarseness d enies. s ore throat d enies. d ifficulty swallowing d enies. n ose bleeds d enies. n jayda congestion d enies. e ar ache d enies. e ar discharge?denies. r inging in ears d enies. l ight sensitivity d enies. e ye pain d enies. b lurring d enies. e ye irritation d enies. d ouble vision d enies.?vision loss d enies. G eneral/Constitutional: Sweats: D enies. F atigue d enies. S leep problems d enies. A norexia d enies. M alaise d enies. W eight loss d enies.?Fatigue or Weakness d enies. F ever or Chills d enies. C ardiovascular: Shortness of Breath w/lying flat d enies. L ightheadedness/dizziness d enies. C hest tightness/ heavy pressure d enies. S welling of legs, ankles, or feet d enies. W aking up with shortness of breath d enies. C hest pain denies. P alpitations d enies. W eight gain d enies. R espiratory: Chronic or frequent cough d enies. C oughing up blood?denies. D ifficulty breathing d enies. P roductive cough d enies. S noring?denies. S hortness of breath that awakens from sleep (PND) d enies. C hest pain d enies. S putum production d enies. W heezing d enies. M usculoskeletal: Joint pain d enies. J oint Fluid d enies. B ack pain d enies. K nee pain d enies. N eloise pain d enies. J oint Stiffness d enies. M uscle cramps d enies. W eakness of muscles d enies. A rthritis d enies. M uscle aches d enies. P ain in shoulder(s) d enies. S wollen joints d enies. 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, left hip Modified On:03/30/2023U Status:confirmed M79.10 Myalgia, unspecified site Modified On:03/30/2023U Status:confirmed M47.816 Spondylosis without myelopathy or radiculopathy, lumbar region Modified On:03/30/2023U Status:confirmed R20.2 Paresthesia of skin Modified On:04/24/2023U Status:confirmed K63.5 Polyp of colon Modified On:04/28/2023U Status:confirmed K57.30 Diverticulosis of la rge intestine without perforation or abscess without bleeding Modified On:04/28/2023U Status:confirmed I10 BP (high blood press ure) Modified On:07/17/2023 Status:confirmed D68.9 Bleeding disorder Modified On:06/14/2023 Status:confirmed Z79.01 Anticoagulated Modified On:09/29/2023 Status:confirmed I25.10 CAD (coronary artery disease) Modified On:09/29/2023 Status:confirmed M51.36 Other intervertebral disc degeneration, lumbar region Modified On:05/09/2023 Status:confirmed I48.91 Atrial fibrillation Modified On:08/31/2023 Status:confirmed R29.6 Frequent falls Modified On:08/31/2023 Status:confirmed I10 Hypertension Modified On:08/31/2023 Status:confirmed R31.9 Hematuria Modified On:07/17/2023 Status:confirmed R60.9 Peripheral edema Modified On:09/29/2023 Status:confirmed M25.569 Knee pain Modified On:07/11/2023 Status:confirmed N39.0 Acute UTI Modified On:07/11/2023 Status:confirmed N02.9 Persistent hematuria Modified On:07/11/2023 Status:confirmed J44.9 COPD (chronic obstru ctive pulmonary disease) Modified On:07/11/2023 Status:confirmed R53.1 General weakness Modified On:09/29/2023 Status:confirmed Z91.81 Status post fall Modified On:07/11/2023 Status:confirmed D50.9 Anemia, iron deficie ncy Modified On:09/29/2023 Status:confirmed E66.01 Morbid obesity Modified On:07/17/2023 Status:confirmed I48.91 Afib Modified On:07/17/2023 Status:confirmed I50.33 Acute on chronic ping stolic (congestive) heart failure Modified On:09/29/2023 Status:confirmed I48.11 Longstanding persist ent atrial fibrillation Modified On:08/31/2023 Status:confirmed M25.551 Hip pain, right Modified On:08/31/2023U Status:confirmed M25.552 Hip pain, left Modified On:08/31/2023/U Status:confirmed R19.7 Diarrhea Modified On:10/25/2023U Status:confirmed E83.42 Hypomagnesemia Modified On:03/20/2024/U Status:confirmed R26.2 Unable to walk Modified On:03/20/2024/U Status:confirmed M19.90 Arthritis of right k nee Modified On:03/20/2024U Status:confirmed N63.20 Left breast mass Modified On:06/26/2024/U Status:confirmed M25.511 Shoulder pain, right Modified On:08/08/2024/U Status:confirmed E03.9 Hypothyroidism Modified On:09/24/2024U Status:confirmed M75.100 Rotator cuff tear Modified On:09/30/2024U Status:confirmed 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 Vera 04/26/2023 * Hospitalization/Major Diagno stic Procedure: f ell 2022 * Family History: F ather: unknown. M other: unknown. B rother(s): unknown. S ister(s): unknown.? * Social History: T obacco Use: T obacco Use/Smoking P atient is a n onsmoker D rug/Alcohol: A EMIGDIO-C (Standard) D id you have a drink containing alcohol in the past year? N o P oints 0 I nterpretation N egative * Medications: T akingAcetaminophen 500 MG Capsule 2 capsule as needed Orally twice daily Atorvastatin Calcium 80 mg Tablet TAKE 1 TABLET BY MOUTH DAILY Centrum Adult Eliquis(Apixaban) 5 MG Tablet 1 tablet Orally BID Furosemide 40 mg Tablet TAKE 1 TABLET BY MOUTH TWICE DAILY hydrALAZINE HCl 50 MG Tablet 1 tablet with food Orally twice daily oxyBUTYnin Chloride 5 MG Tablet 1 tablet Orally prn , Notes to Pharmacist: PRNrOPINIRole HCl 1 MG Tablet 1 tablet 1 to 3 hours before bedtime Orally Once a day Spironolactone 50 MG Tablet 1 tablet Orally bid 3 daysSynthroid(Levothyroxine Sodium) 50 MCG Tablet 1 tablet in the morning on an empty stomach Orally Once a day Taking Acetaminophen 500 MG Capsule 2 capsule as needed Orally twice daily Taking Atorvastatin Calcium 80 mg Tablet TAKE 1 TABLET BY MOUTH DAILY Taking Centrum Adult Taking Eliquis(Apixaban) 5 MG Tablet 1 tablet Orally BID Taking Furosemide 40 mg Tablet TAKE 1 TABLET BY MOUTH TWICE DAILY Taking hydrALAZINE HCl 50 MG Tablet 1 tablet with food Orally twice daily Taking oxyBUTYnin Chloride 5 MG Tablet 1 tablet Orally prn , Notes to Pharmacist: PRNTaking rOPINIRole HCl 1 MG Tablet 1 tablet 1 to 3 hours before bedtime Orally Once a day Taking Spironolactone 50 MG Tablet 1 tablet Orally bid 3 daysTaking Synthroid(Levothyroxine Sodium) 50 MCG Tablet 1 tablet in the morning on an empty stomach Orally Once a day DiscontinuedCarvedilol 6.25 MG Tablet 1 tablet with food Orally twice daily Medication List reviewed and reconciled with the patientDiscontinued Carvedilol 6.25 MG Tablet 1 tablet with food Orally twice daily Medication List reviewed and reconciled with the patient * Allergies: N .K.D.A.no[Allergies Verified] Objective: * Vitals: W t: Not Taken - Patient Unable, Ht: 70 in, BP:92/58mm Hg, Ht-cm: 177.8 cm. * Examination: P hysical Exam: GENERAL: w ell developed, well nourished, in no acute distress. HEAD: n ormocephalic/atraumatic. EYES: p upils equal, round and reactive to light, conjunctivae and sclerae normal. EARS: n o deformity or lesion of external ear, canals and TM appear normal bilaterally, TM's intact, not inflamed with normal light reflex, hearing grossly normal to conversational speech. NOSE: n o deformity, discharge, inflammation, or lesions.? MOUTH: m ucous membranes moist, normal oropharynx and posterior pharynx without lesions or exudates, tongue normal, dentition normal. NECK: n eloise supple, no masses or palpable cervical nodes, trachea midline, thyroid without nodules, masses, tenderness, or enlargement. CHEST: n o chest wall deformity, no chest wall tenderness.? LUNGS: n ormal respiratory effort and clear to auscultation, no wheezes, rales, or rhonchi, good air exchange. CARDIO: r egular rate and rhythm, normal S1 and S2, nor murmur, rub, or gallop. PULSES: n ormal capillary refill. ABDOMEN: s oft, non-distended, non-tender, no masses. MUSCULOSKELETAL: 3 -4 + edema - chrinic for him. EXTREMITY: n o clubbing, cyanosis, edema, or deformity with normal ROM in both upper and lower bilateral extremities. NEUROLOGIC: g rossly normal. SKIN: n o rashes, ulcerations, or suspicious lesions. LYMPH NODES: n o cervical adenopathy, nodes normal. MENTAL STATUS: a lert and oriented x3, normal mood and affect. Assessment: * Assessment: 1. H ypertension - I10 (Primary) 2 . C AD (coronary artery disease) - I25.10 3 . A trial fibrillation - I48.91 4 . H ypothyroidism - E03.9 5 . C erumen impaction - H61.20 6 . B ilateral impacted cerumen - H61.23 Plan: * Treatment: 2. C AD (coronary artery disease) L AB: HEMOGLOBIN A1C (GLYCO) L AB: LIPID PANEL (CHOL/TRIG/HDL/LDL) L AB: THYROID PANEL (T4/TSH/FREE T3) L AB: PSA, SCREENING L AB: CMP (COMP MET LOPEZ) w/eGFR CKD-EPI L AB: CBC WITH DIFF 3. A trial fibrillation L AB: HEMOGLOBIN A1C (GLYCO) L AB: LIPID PANEL (CHOL/TRIG/HDL/LDL) L AB: THYROID PANEL (T4/TSH/FREE T3) L AB: PSA, SCREENING L AB: CMP (COMP MET LOPEZ) w/eGFR CKD-EPI L AB: CBC WITH DIFF 4. H ypothyroidism L AB: HEMOGLOBIN A1C (GLYCO) L AB: LIPID PANEL (CHOL/TRIG/HDL/LDL) L AB: THYROID PANEL (T4/TSH/FREE T3) L AB: PSA, SCREENING L AB: CMP (COMP MET LOPEZ) w/eGFR CKD-EPI L AB: CBC WITH DIFF 5. C erumen impaction P rocedure: Cerumen Removal - performed * Procedure Codes: 6 9210 REMOVE IMPACTED CERUMEN * Preventive Medicine: Screenings/Counseling: F ALL RISK SCREENING Fall Risk Assessment: N o falls in the past year * * Sign off status: Completed Visit Status: C HK (Check Out) true * Provider: Brian Gould (HARDEEP)MD Date: 0 02/03/2025 Generated for Emili ng/Faaleeg/eTransmitting on: 0 03/05/2025 04:06 AM EDT History and Physical Notes * HPI (History of Present Illness) Category Sub-Category Detail Notes Category Not es General earpain dry mouth low bp decreased urine output Examination Category Sub-Category Detail Notes Category Not es Physical Exam GENERAL: well developed, well nourished, in no acute distress HEAD: normocephalic/atraum atic EYES: pupils equal, round and reactive to light, conjunctivae and sclerae normal EARS: no deformity or lesi on of external ear, canals and TM appear normal bilaterally, TM's intact, not inflamed with normal light reflex, hearing grossly normal to conversational speech NOSE: no deformity, discha rge, inflammation, or lesions MOUTH: mucous membranes aug[address] st, normal oropharynx and posterior pharynx without lesions or exudates, tongue normal, dentition normal NECK: neck supple, no mass es or palpable cervical nodes, trachea midline, thyroid without nodules, masses, tenderness, or enlargement CHEST: no chest wall deform ity, no chest wall tenderness LUNGS: normal respiratory e ffort and clear to auscultation, no wheezes, rales, or rhonchi, good air exchange CARDIO: regular rate and rhy thm, normal S1 and S2, nor murmur, rub, or gallop PULSES: normal capillary ref ill ABDOMEN: soft, non-distended, non-tender, no masses RECTAL: MUSCULOSKELETAL: 3-4 + edema - chrini c for him EXTREMITY: no clubbing, cyanosi s, edema, or deformity with normal ROM in both upper and lower bilateral extremities NEUROLOGIC: grossly normal SKIN: no rashes, ulceratio ns, or suspicious lesions LYMPH NODES: no cervical adenopat hy, nodes normal MENTAL STATUS: alert and oriented x 3, normal mood and affect
--- OUTSIDE RECORDS SUMMARY | 2025-02-06 14:40 | XMS_ITS ---
Author Organization [facility] in [place] Address [address] [place] [address] Care Team Providers Care Heddler Name Role Phone LawrenceZackery vee Primary Care Provider REASON FOR VISIT review labs- MB Full Encounters Encounter Location Date Provider Diagnosis [facility] [address] [place] [address] 02/06/2025 Zackery Lawrencemariusz Abnormal blood chemistry level R79.9 Assessments Encounter Date Diagnosis (ICD Code) Assessment Notes Treatment Notes Treatment Clinical Notes Section Notes 02/06/2025 Abnormal blood chemistry level (ICD-10 - R79.9) Plan Of Treatment Pending Test Test Name Order Date CBC AUTO DIFF 02/06/2025 Progress Notes * Oscar COXDOB:1945 ( 79 yo M)Acc No.[id number]:02/06/2025 Patient: Demarcus Oscar REINOSO :1945 A ge:79 Y S ex:Male Address:[address] [place] [address], [id number] Subjective: * Chief Complaints: * r eview labs- MB Full * Medical History: * Surgical History: * Hospitalization/Major Diagno stic Procedure: * Medications: Objective: * Vitals: * Physical Examination: Assessment: * Assessment: 1. A bnormal blood chemistry level - R79.9 (Primary) Plan: * Treatment: * Procedure Codes: * true * Date: Generated for Printi ng/Faxing/eTransmitting on: 0 03/05/2025 04:06 AM EDT
[2025-03-05] VITALS (20 sets, daily range): BP systolic 121–157; BP diastolic 52–69; PULSE 35–71; TEMP 34–34.9; O2SAT 93–100; BMI 34.4
--- OUTSIDE RECORDS SUMMARY | 2025-03-05 04:07 | XMS_ITS | Encounter Summary ---
Author Organization [facility] Address [address] [place] [address] Care Team Providers Care Inside Sales Account Executive Name Role Phone Javier Gould MD Primary Care Provider [phone] Sadie Melanie DO Unavailable [phone] Encounter Details Date Type Department Care Team ([facility] Contact Info) Description 07/03/2023 Abstract [facility] [address] [place] [address] Korina Willard MD 112 [facility] [address] [place], [place] [id number] Social History Tobacco Use Types Packs/Day Years Used Date Smoking Tobacco: Former Cigarettes Q uit: 1983 Smokeless Tobacco: Never Alcohol Use Standard Drinks/Week Comments Not Currently 0 (1 standard drink = 0.6 oz pur e alcohol) Caffeine 1-2 cups per day Sex and Gender Information Value Date Recorded Sex Assigned at Not on file Legal Sex Male 6:47 PM EDT Gender Identity Not on file Sexual Orientation Not on file documented as of this encounter Plan of Treatment Upcoming Encounters Date Type Department Care Team ([facility] Contact Info) Description 03/06/2025 3:30 PM EDT Procedure Visit [facility] [address] [facility] 120 [place] [address] Guero Fink DPM [address] [facility] [address] [place] [address] 04/15/2025 12:30 PM EDT Office Visit [facility] [address] [place] [address] Melanie Noel DO [address] [place] [address] documented as of this encounter Visit Diagnoses Not on filedocumented in this encounter Care Teams Inside Sales Account Executive Relationship Specialty Start Date End Date Javier Gould MD PCP - General Family Medicine 02/24/23 Melanie Noel DO [address] [place] [address] Referring Physician Neurology 09/30/24 documented as of this encounter
--- OUTSIDE RECORDS SUMMARY | 2025-03-05 04:07 | XMS_ITS | Clinical Summary ---
Author Organization [facility] Address [address] [place] [address] Care Team Providers Care Javascript Engineer Name Role Phone Javier Gould MD Primary Care Provider [phone] SadieMelanie murguia DO Unavailable [phone] Allergies No known active allergies Medications atorvastatin (Lipitor) 80 MG tablet Oral for 90 Active oxybutynin (Ditropan) 2.5 mg split tablet if needed Acti ve acetaminophen (Tylenol) 325 MG tablet every 4 (four) hours. Active apixaban (Eliquis) 5 MG tablet take 1 tablet by mouth twice a day Oral for 30 Active furosemide (Lasix) 40 MG tablet 1 (one) time each day at the same time. Active hyoscyamine (Anaspaz,Levsin ) 0.125 MG tablet 1 Orally BID prn Active hydrALAZINE (Apresoline) 50 MG tablet Take 50 mg by mouth in the morning and 50 mg in the evening. Active baclofen (Lioresal) 5 MG tablet every 12 (twelve) hours Active rOPINIRole (Requip) 1 MG tablet Take 1 mg by mouth at bedtime Active DULoxetine (Cymbalta) [address] capsule Take 20 mg by mouth Daily Do not crush or chew. Active levothyroxine (Synthroid, Levoxyl) 50 MCG tablet 50 mcg 10/19/2024 Active Active Problems Problem Noted Date Diagnosed Date Acquired hallux valgus 03/28/2023 Arthritis of left hip 03/28/2023 Arthritis of right knee 03/28/2023 Difficulty walking 03/28/2023 Onychomycosis due to dermatophyte 03/28/2023 Peripheral venous insufficiency 03/28/2023 Presence of right artificial hip joint Primary osteoarthritis of left knee 03/28/2023 Primary osteoarthritis of right hip 03/28/2023 Encounters Date Type Department Care Team Description 12/26/2024 3:50 PM EDT Procedure Visit [facility] 112 [facility] [address] [place] [phone] Guero Fink DPM Pain due to onychomycosis of toenails of both feet (Primary Dx); Venous insufficiency; Foot drop, left 12/26/2024 Bamboo flowsheet [facility] 112 [facility] [address] [place] [phone] Guero Fink DPM 12/26/2024 Travel 12/16/2024 4:00 PM EST Office Visit [facility] [id number] [place] [phone] Colette Roth NP Bilateral carpal tunnel syndrome (Primary Dx); Peripheral neuropathy, idiopathic; Weakness; Ulnar neuropathy at elbow, left 12/16/2024 Telephone [facility] [place] [id number] [place] [phone] Asha Ly NP from Last 3 Months Family History * Patient is adopted Relation Name Status Comments Father (Age 82) Mother (Age 91) Social History Tobacco Use Types Packs/Day Years Used Date Smoking Tobacco: Former Cigarettes Q uit: 1982 Smokeless Tobacco: Never Tobacco Cessation:Counseling Given: Yes Alcohol Use Standard Drinks/Week Comments Not Currently 0 (1 standard drink = 0.6 oz pur e alcohol) Caffeine 1-2 cups per day Sex and Gender Information Value Date Recorded Sex Assigned at Not on file Legal Sex Male 6:47 PM EDT Gender Identity Not on file Sexual Orientation Not on file Last Filed Vital Signs Vital Sign Reading Time Taken Comments Blood Pressure 98/62 12/16/2024 4:22 PM EST Pulse 54 09/03/2024 4:01 PM EST Temperature - - Respiratory Rate 16 12/26/2024 3:52 PM EDT Oxygen Saturation 96% 09/03/2024 4:01 PM EST Inhaled Oxygen Concentration - - Weight 102 kg (225 lb) 12/26/2024 3:52 PM EDT Height 177.8 cm (5' 10 ) 12/26/2024 3:52 PM EDT Body Mass Index 32.28 12/26/2024 3:52 PM EDT Plan of Treatment Upcoming Encounters Date Type Department Care Team ([facility] st Contact Info) Description 03/06/2025 3:30 PM EDT Procedure Visit [facility] 112 [facility] [address] [place] [address] Guero Fink DPM [address] [facility] [address] [place] [address] 04/15/2025 12:30 PM EDT Office Visit [facility] [address] [place] [address] Melanie Noel DO [address] [place], [place] [id number] Health Maintenance Due Date Last Done Comments Pneumococcal Vaccine: 65+ Years (1 - PCV) 996 Influenza Vaccine (Season Ended) 2025 Insurance [employer] MED[employer]ARE [employer]VANTAGE Care Teams Javascript Engineer Relationship Specialty Start Date End Date Javier Gould MD PCP - General Family Medicine 02/24/23 Melanie Noel DO [address] [place] [address] Referring Physician Neurology 09/30/24
--- OUTSIDE RECORDS SUMMARY | 2025-03-05 04:07 | XMS_ITS | Encounter Summary ---
Author Organization [employer] Address [id number] [address] [place] [address] Care Team Providers Care Gamma Ray Operator Name Role Phone Javier Gould MD Primary Care Provider [phone] Reason for Visit * Reason Comments Med Refill Encounter Details Date Type Department Care Team (Late st Contact Info) Description 07/30/2019 Refill [facility] [address] [place] [address] A [facility] [place] [address] Pietro Torre MD [address] [place] [id number] Social History Tobacco Use Types Packs/Day Years Used Date Smoking Tobacco: Former Smokeless Tobacco: Never Alcohol Use Standard Drinks/Week Comments No 0 (1 standard drink = 0.6 oz pur e alcohol) Childcare Answer Date Recorded Childcare Unknown 03/25/2019 Employment Answer Date Recorded Employment Unknown 03/25/2019 Sex and Gender Information Value Date Recorded Sex Assigned at Not on file Legal Sex Male 12:21 PM EDT Gender Identity Not on file Sexual Orientation Not on file documented as of this encounter Plan of Treatment Upcoming Encounters Date Type Department Care Team (Late st Contact Info) Description 03/11/2025 1:45 PM EDT Office Visit [facility] [address] [place] [address] A [facility] [place] [address] Pietro Torre MD [address] [place] [id number] documented as of this encounter Visit Diagnoses Not on filedocumented in this encounter Care Teams Gamma Ray Operator Relationship Specialty Start Date End Date Javier Gould MD PCP - General Family Medicine 01/10/19 documented as of this encounter
--- OUTSIDE RECORDS SUMMARY | 2025-03-05 04:07 | XMS_ITS | Encounter Summary ---
Author Organization [facility] Address [address] [place] [address] Care Team Providers Care Associate Professor Of Law Name Role Phone Javier Gould MD Primary Care Provider [phone] Sadie Melanie DO Unavailable [phone] Encounter Details Date Type Department Care Team ([facility] Contact Info) Description 05/02/2024 Abstract [facility] 112 [facility] [address] [place] [address] Unallocated, [facility] Provider, [address] [place] [address] Social History Tobacco Use Types Packs/Day Years [...] Upcoming Encounters Date Type Department Care Team ([facility] Contact Info) Description 03/06/2025 3:30 PM EDT Procedure Visit [facility] [address] [place] [address] [place] [address] Guero Fink DPM [address] [facility] [address] [place] [address] 04/15/2025 12:30 PM EDT Office Visit [facility] [address] [place] [address] Melanie Noel DO [address] [place] [address] documented as of this encounter Visit Diagnoses Not on filedocumented in this encounter Care Teams Associate Professor Of Law Relationship Specialty Start Date End Date Javier Gould MD PCP - General Family Medicine 02/24/23 Melanie Noel DO [address] [place] [address] Referring Physician Neurology 09/30/24 documented as of this encounter
--- OUTSIDE RECORDS SUMMARY | 2025-03-05 04:07 | XMS_ITS | Encounter Summary ---
Author Organization [employer] tem Address [id number] [address] [place] [address] Care Team Providers Care Ranch Supervisor Name Role Phone Javier Gould MD Primary Care Provider [phone] Encounter Details Date Type Department Care Team (Late Contact Info) Description 07/23/2021 Abstract [facility] [address] [place] [phone] External, Scanning Provider Social History Tobacco Use Types Packs/Day Years Used Date Smoking Tobacco: Former Cigarettes 1 20 0 12/21/1964 - 12/21/1984 Smokeless Tobacco: Never Comments:quit 35 years ago f or 20 years Alcohol Use Standard Drinks/Week Comments Yes 0 (1 standard drink = 0.6 oz pur e alcohol) Childcare Answer Date Recorded Childcare Unknown 03/25/2019 Employment Answer Date Recorded Employment Unknown 03/25/2019 Purpose - Life Answer Date Recorded Purpose and direction in life Unknown Sex and Gender Information Value Date Recorded Sex Assigned at Not on file Legal Sex Male 12:21 PM EDT Gender Identity Not on file Sexual Orientation Not on file documented as of this encounter Plan of Treatment Upcoming Encounters Date Type Department Care Team (Late Contact Info) Description 03/11/2025 1:45 PM EDT Office Visit [facility] [address] [place] [address] A [facility] [place] [phone] Pietro Torre MD [address] [place] [phone] documented as of this encounter Procedures Procedure Name Priority Date/Time Associated Diagnosis Comments PROSTATIC SPECIFIC ANTIGEN, DIAGNOSTIC Routine 07/12/2021 documented in this encounter Results * Prostatic specific antigen, diagnostic (07/12/2021) Psa <0.05 MANUALLY TRANSCRIBED RESULTS Comment:[place] 07/12/2021 us Scanning Provider External LAB BLOOD ORDERABLES Final Result MANUALLY TRANSCRIBED RESULTS documented in this encounter Visit Diagnoses Not on filedocumented in this encounter Care Teams Ranch Supervisor Relationship Specialty Start Date End Date Javier Gould MD PCP - General Family Medicine 01/10/19 documented as of this encounter
--- OUTSIDE RECORDS SUMMARY | 2025-03-05 04:07 | XMS_ITS ---
Author Organization [facility] Care Team Providers Care Extruder Name Role Phone NEO CARRERA Unavailable Unavailable Charlette Alonso Unavailable Unavailable Korina Willard Unavailable Unavailable Allergies and adverse reactions No Known Allergies Care Team Name Role Address Phone Organization Dates NEO CARRERA PCP [address] [place], [address], [place] (Office): : [facility] 05/02/2023 - 06/02/2023 Charlette Alonso [address] [facility] [address], [place], [address], [place] (Office): : [facility] 05/02/2023 - 06/02/[address] [facility] [address], [place], [address], [place] (Office[place] : [facility] 05/02/2023 - 06/02/2023 Immunizations Immunization Status Vaccine Details Vaccine Code CodeSystem Date Notes Influenza cancelled Influenza, split virus, trivalent, injectable, contains preservative 141 CVX created date: 05/04/2023 consent date: 05/04/2023 TB 2 Step Mantoux Skin Test completed tuberculin skin test; unspecified formulation Given 0.1 ml Right Forearm intradermally Step 2 of Multi-step with next step required 98 CVX created date: 05/12/2023 consent date: 05/12/2023 administer ed date: 05/12/2023 TB 2 Step Mantoux Skin Test completed tuberculin skin test; unspecified formulation Given 0.1 ml Left Forearm intradermally Step 1 of Multi-step with next step required 98 CVX created date: 05/02/2023 consent date: 05/02/2023 administer ed date: 05/02/2023 [id number] cancelled pneumococcal polysaccharide vaccine, 23 valent 33 CVX created date: 05/04/2023 consent date: 05/04/2023 Educated by A Belem RN on 05/04/2023 education provided resident did not wish to receive vaccine Pneumovax 13 cancelled pneumococcal conjugate vaccine, 13 valent 133 CVX created date: 05/04/2023 consent date: 05/04/2023 Educated by A Belem RN on 05/04/2023 education provided resident did not wish to receive vaccine SARS-(COVID 19)Pfizer (Dose 1) completed SARS-COV-2 (COVID-19) vaccine, mRNA, spike protein, LNP, preservative free, 30 mcg/0.3mL dose 208 CVX created date: 05/08/2023 administer ed date: 04/09/2021 SARS-(COVID 19) Pfizer (Dose 2) completed SARS-COV-2 (COVID-19) vaccine, mRNA, spike protein, LNP, preservative free, 30 mcg/0.3mL dose 208 CVX created date: 05/08/2023 administer ed date: 04/29/2021 Mental Status Section Date Assessment Total Score Description 06/02/2023 BIMS 15 cognitively int act CAM 0 No delirium ind icated PHQ-9 03 minimal depress ion 05/08/2023 BIMS 12 moderate cognit pieter impairment CAM 4 Delirium indica angelica PHQ-9 05 mild depression Problems Problem # Description Date of onset Resolved Date Code CodeSystem Concern Status 1 ACUTE ON CHRONIC COMBINED SYSTOLIC (CONGESTIVE) AND DIASTOLIC (CONGESTIVE) HEART FAILURE 05/02/[address] active 2 ATHEROSCLEROTIC HEART DISEASE OF [place] CORONARY ARTERY WITHOUT ANGINA PECTORIS 05/02/[address] active 3 BRADYCARDIA, UNSPECIFIED 05/02/[address] active 4 COGNITIVE COMMUNICATION DEFICIT 05/02/[address] active 5 ESSENTIAL (PRIMARY) HYPERTENSION 05/02/[address] active 6 HYPOKALEMIA 05/02/[address] active 7 LAY OUT HELPER (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) USE OF ANTICOAGULANTS 05/02/[address] active 8 MUSCLE WEAKNESS (GENERALIZED) 05/02/[address] active 9 OBESITY, UNSPECIFIED 05/02/[address] active 10 PAIN IN LEFT HIP 05/02/[address] active 11 PAIN IN RIGHT HIP 05/02/[address] active 12 REPEATED FALLS 05/02/[address] active 13 UNSPECIFIED ATRIAL FIBRILLATION 05/02/[address] active Reason for Referral No Reasons for Referral Entered Social History Social History Observation Description Start Date End Date Code Code System Current Smoking Status Tobacco smoking consumption unknown 095179554 SNOMED CT Sex Assigned At Male 1945 65273-4 [facility] Gender Identity Vital Signs Code Code System Vitals Name Values and Units Timing Information 8462-4 [facility] Blood Pressure-Diastolic Value=61 Un its=mmHg 06/02/2023 8480-6 [facility] Blood Pressure-Systolic Wfygy=996 Un its=mmHg 06/02/2023 91373-4 [facility] Pain Level Value=2.0 05/26/2023 35538-0 INC Weight Eiceu=961.2 Units=Lbs 05/2023 9279-1 [facility] Respiratory Rate Value=16.0 Units=/m in 05/19/2023 96544-6 [facility] O2 % BldC Oximetry Value=99.0 Units= % 05/19/2023 8310-5 [facility] Body Temperature Value=97.6 Units= F 05/19/2023 8867-4 [facility] Heart rate Value=85.0 Units=/min 01/2023 8302-2 [facility] Height Value=67.0 Units=Inches 05/02/2023
--- OUTSIDE RECORDS SUMMARY | 2025-03-05 04:07 | XMS_ITS | Encounter Summary ---
Author Organization [employer] s tem Address [facility] [place]-[id number] [address] [place] [address] Care Team Providers Care Electroneurodiagnostic Technician Name Role Phone Javier Gould MD Primary Care Provider [phone] Encounter Details Date Type Department Care Team ([facility] Contact Info) Description 07/29/2021 Abstract [facility] [address] [place] [address] External, Scanning Provider Social History Tobacco Use [...] on file Sexual Orientation Not on file COVID-19 Exposure Response Date Recorded In the last month, have you been in contact with someone who was confirmed or suspected to have Coronavirus / COVID-19? No / Unsure 07/27/2021 1:07 PM EDT documented as of this encounter Plan of Treatment Upcoming Encounters Date Type Department Care Team ([facility] Contact Info) Description 03/11/2025 1:45 PM EDT Office Visit [facility] [address] [place] [address] [place] [address] [place] [address] Pietro Torre MD [address] [place] [address] documented as of this encounter Procedures Procedure Name Priority Date/Time Associated Diagnosis Comments MULTIPLE LABS Routine 07/12/2021 documented in this encounter Results * Multiple labs (07/12/2021) 07/12/2021 us Scanning Provider External [facility] Final Result MANUALLY TRANSCRIBED RESULTS documented in this encounter Visit Diagnoses Not on filedocumented in this encounter Care Teams Electroneurodiagnostic Technician Relationship Specialty Start Date End Date Javier Gould MD PCP - General Family Medicine 01/10/19 documented as of this encounter
--- OUTSIDE RECORDS SUMMARY | 2025-03-05 04:07 | XMS_ITS | Encounter Summary ---
Author Organization [employer] s tem Address [id number] [address] [place] [address] Care Team Providers Care Director Of Casework Services Name Role Phone Javier Gould MD Primary Care Provider [phone] Encounter Details Date Type Department Care Team (Late st Contact Info) Description 08/28/2020 [facility]phone [facility] [address] [place] [phone] Ani Toribio PA [address] [place] [address] Social History Tobacco Use Types Packs/Day Years [...] have Coronavirus / COVID-19? No / Unsure 08/27/2020 3:21 PM EST documented as of this encounter Miscellaneous Notes * Telephone Encounter - BIB العلي - 08/28/2020 1:22 PM EST Please add review scrotal US results to his appointment with Dr. Torre 09/22 documented in this encounter Plan of Treatment Upcoming Encounters Date Type Department Care Team (Late st Contact Info) Description 03/11/2025 1:45 PM EDT Office Visit [facility] [address] [place] [address] [place] [address] Pietro Torre MD [address] [place] [address] documented as of this encounter Visit Diagnoses Not on filedocumented in this encounter Care Teams Director Of Casework Services Relationship Specialty Start Date End Date Javier Gould MD PCP - General Family Medicine 01/10/19 documented as of this encounter
--- OUTSIDE RECORDS SUMMARY | 2025-03-05 04:07 | XMS_ITS | CCD ---
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 Operator Name Role Phone PEBBLES WOODARD Primary Care [...] Unavaila ble REQUEST, DR ALLEN LISTED Attending Kendalla PIETRO Ramos Primary Care Unavailable PIETRO TORRE Consulting Unavailable REQUEST, DR ALLEN LISTED Admitting Unavaila ble REQUEST, DR ALLEN LISTED Consulting Unavaila ble REQUEST, DR ALLEN LISTED Attending Unavaila PEBBLES Lei Primary Care Unavailable DALJITY ., DR LARSON Primary Care Unavailable MISC, DR ALBERTO Admitting Unavailable MISC, DR ALBERTO Consulting Unavailable MISC, DR ALBERTO Attending Unavailable Neo Gould Primary Care Physician [phone] PIETRO TORRE Attending Unavailable NEO GOULD Referring Unavailable NEO GOULD Primary Care Unavailable NILZhang Alvarez Attending Unavailable NILZhang Alvarez Attending Unavailable NILZhang Alvarez Attending Unavailable NILZhang Alvarez Attending Unavailable Ghislaine Morales Attending Unavailable Neo Gould Referring Unavailable Neo Gould MD Primary Care Provider Tejas Saab DO Unavailable Neo Gould MD Primary Care Provider [phone] Neo Gould MD Primary Care Provider [phone] HORTENCIA ROTH Attending Unavailable GUERO FINK Attending Unavailable TINY TRAVIS Attending Unavailable TINY TRAVIS Attending Unavailable TEJAS SAAB Attending Unavailable NEO GOULD Referring Unavailable TEJAS SAAB Attending Unavailable TEJAS SAAB Attending Unavailable PADMA LAU Attending Unavailable SHILOH HESTER Attending Unavailable SHILOH HESTER Attending Unavailable Allergies Allergy Classification Reported Allergen(s) Allergy Type Date of Onset Reaction(s) Facility (1 source) No Known Medication Allergies; 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: [No Known Medication Allergies] Propensity to adverse reactions (disorder) [facility] Medications Current Medications Medication Drug Class(es) Dates Sig (Normalized) Sig (Original) acetaminophen 325 mg oral tablet (14 sources) acetaminophen (T ylenol) 325 MG tablet [...] morning. Active apixaban 5 mg oral tablet (15 sources) Factor Xa Inhibitor Start: 03-15-20 End: 03-05-20 24 take 1 tablet by mouth twice daily Eliquis 5 mg oral tablet 5 mg = 1 tab(s), Oral, BID, Refills(s) 0 Start Date: 03/15/23 Status: Ordered atorvastatin 80 mg oral tablet (15 sources) HMG-CoA Reductase Inhibitor Start: 03-15-20 End: 03-05-20 24 take 1 tablet by mouth once daily Lipitor 80 mg Tab 80 mg = 1 tab(s), Oral, Daily, Refills(s) 0 Start Date: 03/15/23 Status: Ordered baclofen 5 mg oral tablet (13 sources) gamma-Aminobutyric Acid-ergic Agonist baclofen (Lioresal) 5 MG tablet every 12 (twelve) hours Active carvedilol 25 mg oral tablet (2 sources) alpha-Adrenergic Jv, beta-Adrenergic Jv Start: 03-15-20 23 Coreg 25 mg Tab 12.5 mg = [...] DULoxetine 20 mg delayed release oral capsule (12 sources) Serotonin and Norepinephrine Reuptake Inhibitor take 1 capsule by mouth once daily DULoxetine (Cymbalta) [address] capsule Take 20 mg by mouth Daily Do not crush or chew. Active furosemide 40 mg oral tablet (16 sources) Loop Diuretic Start: take 1 tablet [...] Active hydrALAZINE hydrochloride 50 mg oral tablet (15 sources) Arteriolar Vasodilator take 1 tablet by [...] Ordered hyoscyamine sulfate 0.125 mg oral tablet (15 sources) take 1 tablet by mouth twice daily as needed hyoscyamine (Anaspaz,Levsin) 0.125 MG tablet 1 Orally BID prn Active take 1 tablet under the tongue four times daily as needed hyoscyamine (LEVSIN) 0.125 mg SL tablet hyoscyamine 0.[address] (ONE) TABLET UNDER THE TONGUE FOUR TIMES DAILY NEEDED Active levothyroxine sodium 0.05 mg oral tablet (5 sources) l-Thyroxine Start: 10-19-2024 levothyroxine (Synthroid, Levoxyl) [...] Discontinued oxybutynin (Ditropan) 2.5 mg split tablet (13 sources) oxybutynin (Ditr opan) 2.5 mg split tablet if needed Active oxybutynin (Ditr opan) 2.5 mg split tablet Oxybutynin Active rOPINIRole 1 mg oral tablet (15 sources) Nonergot Dopamine Agonist take 1 tablet [...] Documented Da te Episodic/Chronic Acquired foot deformities (13 sources) Acquired hallux valgus; 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: [Hallux valgus (acquired), unspecified foot] Onset: 03-28-2023 03-28-2023 Chronic Acquired foot deformities (1 source) Left foot drop; 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: [Foot drop, left foot] 12-18-2024 Episodic Cancer of prostate (6 sources) Malignant neoplasm of prostate; 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: [Malignant tumor of prostate] Onset: 09-06-2016 03-05-2024 Chronic Cancer of prostate (1 source) History of malignant neoplasm of prostate 03-15-2023 Episodic Cardiac dysrhythmias (2 sources) Atrial fibrillation; 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: [Premature beats] 03-15-2023 Chronic Cardiac dysrhythmias (2 sources) Palpitations; 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: [Palpitations] Onset: 02-18-2025 Episodic Congestive heart failure; nonhypertensive (1 source) Diastolic heart failure 03-15-2023 Chronic Coronary atherosclerosis and other heart disease (3 sources) Coronary arteriosclerosis; 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: [Atherosclerotic heart disease of [place] coronary artery without angina pectoris] Onset: 08-28-2024 03-15-2023 Chronic Disorders of lipid metabolism (4 sources) Hyperlipidemia, unspecified; 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: [HYPERLIPIDEMIA UNSPECIFIED] Onset: 06-29-2022 Chronic Essential hypertension (1 source) Hypertensive disorder 03-15-2023 Chronic Genitourinary symptoms and ill-defined conditions (2 sources) Urge incontinence of urine; 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: [Urge incontinence] Onset: 05-23-2017 09-06-2022 Chronic Malaise and fatigue (2 sources) Asthenia; 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: [Weakness] 09-09-2024 Episodic Mycoses (14 sources) Onychomycosis due to dermatophyte ; 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: [Tinea unguium] Onset: 03-28-2023 03-28-2023 Episodic Osteoarthritis (20 sources) Primary generalized (osteo)arthritis; 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: [Arthritis of left hip] Onset: 12-10-2022 Chronic Other aftercare (1 source) Other termite renewal inspector (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 therapy; 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: [OTH SENIOR LIVING CURRENT DRUG THERAPY] Onset: 12-14-2022 Episodic Other aftercare (2 sources) Long-term current use of anticoagulant; 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: [skilled nursing (current) use of anticoagulants] Onset: 03-28-2023 Episodic Other and unspecified benign neoplasm (3 sources) History of polyp of colon; 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: [Personal history of colonic polyps] Onset: 03-28-2023 Episodic Other connective tissue disease (13 sources) Hip joint prosthesis present; 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: [Presence of right artificial hip joint] Onset: 03-28-2023 03-28-2023 Chronic Other connective tissue disease (4 sources) Tear of right rotator cuff; 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: [Unspecified rotator cuff tear or rupture of right shoulder, not specified as traumatic] 10-30-2024 Episodic Other diseases of veins and lymphatics (1 source) Vascular insufficiency; 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: [Venous insufficiency (chronic) (peripheral)] 12-18-2024 Episodic Other nervous system disorders (13 sources) Difficulty walking; 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: [Difficulty in walking, [...] back pain at multiple sites] 09-09-2024 Episodic Past or Other Problems Problem Classification Problem Date Documented Date Episodic/Chronic Diabetes mellitus without complication (1 source) Other abnormal glucose; 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: [OTHER ABNORMAL GLUCOSE] Onset: 07-03-2022 Episodic Other diseases of veins and lymphatics (13 sources) Peripheral venous insufficiency; 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: [Venous insufficiency [...] Value Interpretation Reference Range Facility Office Visiton 02-18-2025 Follow-up visit [id number] Oscar Cox 1945 M Date Provider Department Center 02/18/2025 [id number], SHILOH CARD Favian Parada Family History Family history unknown: Yes Level of Service:39510 SD OFFICE/OUTPATIENT ESTABLISHED MOD MDM 30 MIN Normal [facility] No Panel Informationon 10-30 Padma Lau NP 10/30/2024 5:53 PM L Inj/Asp: R subacromial bursa on 10/30/2024 5:47 PM Indications: pain Details: 21 G needle, ultrasound-guided lateral approach Medications: 40 mg methylPREDNISolone acetate 40 MG/ML Outcome: tolerated well, no immediate complications Site cleaned with isopropyl alcohol. Procedure, treatment alternatives, risks and benefits explained, specific risks discussed. Consent was given by the patient. 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 [facility] 9-10 NervesOrdered By: Sergo Saab on 09-23-2024 [facility] Work Phone: ALL THYROID STIM HORMONEon 1 11-20-2023 Interpretation and review of laboratory results Abnormal [facility] TSH Qn 4.817 m[IU]/L High [facility] Office Visiton 08-28-2024 Follow-up visit [id number] Oscar Cox 1945 M Date Provider Department Center 08/28/2024 SHILOH SANTACRUZ Family History Family history unknown: Yes Level of Service:57744 SD OFFICE/OUTPATIENT ESTABLISHED LOW MDM 20 MIN [facility] 36on 04-08-2024 36 Regarding stress rose t [...] is currently not scheduled for any surgery. [facility] 36on 03-07-2024 36 PT INFIRMED AND ORDE R SENT [facility] Shelter Recordson 07-04 Shelter Records [id number] CD:127 [facility] Reminderson 05-10-2023 Reminders - From: Pennie Bose LPN To: N - Clinical; Sent: 05/10/2023 10:13:27 EDT Show up: 03/27/2028 07:00:00 EDT Subject: colonoscopy recall Due Date/Time: 04/26/2028 07:00:00 EDT Reminder/Recall Patient due for surveillance colonoscopy 04/26/2028. [facility] Pathology Noteon 05-03-2023 Pathology Note [id number] 0CD:127 [facility] Outside Colonoscopyon 2022 Outside Colonoscopy [id number] 0CD:127 [facility] Pre-Certification Formon Pre-Certification Form [id number]. 00CD:127 [facility] Consent for Procedure/Surger yon 03-29-2023 Consent for Procedure/Surgery [id number] 0CD:127 [facility] Ambulatory Visit Summaryon 0 03-28-2023 Ambulatory [...] history of colonic polyps Premature beats Normal [facility] CBC AUTO DIFFon 03-01-2023 BASO # 0.0 103/ul Normal 0.0-0.1 [facility] Comment on above: Performed By: #### D ATCBC #### [facility] [address] [place], [place] [address] Dr. Power Covarrubias Basophils/100 WBC (Bld) 0.7 % Normal 0.2-2.0 [facility] Comment on above: Performed By: #### D ATCBC #### [facility] [address] [place], [place] [address] Dr. Power Covarrubias EO # 0.1 103/ul Normal 0.0-0.7 [facility] Comment on above: Performed By: #### D ATCBC #### [facility] [address] [place] [address] Dr. Power Covarrubias Eosinophils/100 WBC (Bld) 1.8 % Normal 0.9-7.0 [facility] Comment on above: Performed By: #### D ATCBC #### [facility] [address] [place] [address] Dr. Power Covarrubias Erythrocyte distribution width (RBC) [Ratio] 13.3 % Normal 11.0-15.0 [facility] Comment on above: Performed By: #### D ATCBC #### [facility] [address] [place] [address] Dr. Power Covarrubias Hematocrit (Bld) [Volume fraction] 40.7 % Critically low 42.0-54.0 [facility] Comment on above: Performed By: #### D ATCBC #### [facility] [address] [place] [address] Dr. Power Covarrubias Hemoglobin (Bld) [Mass/Vol] 12.9 g/dL Critically low 14.0-18.0 [facility] Comment on above: Performed By: #### D ATCBC #### [facility] [address] [place] [address] Dr. Power Covarrubias IG # 0.01 10e3/ul Normal 0.00-0.03 [facility] Comment on above: Performed By: #### D ATCBC #### [facility] [address] [place] [address] Dr. Power Covarrubias IG % 0.2 % Normal 0.0-0.5 [facility] Comment on above: Performed By: #### D ATCBC #### [facility] [address] [place] [address] Dr. Power Covarrubias LYMPH # 0.7 103/ul Critically low 1.2-3.8 [facility] Comment on above: Performed By: #### D ATCBC #### [facility] [address] [place] [address] Dr. Power Covarrubias Lymphocytes/100 WBC (Bld) 16.3 % Critically low 20.5-60.0 [facility] Comment on above: Performed By: #### D ATCBC #### [facility] [address] [place] [address] Dr. Power Covarrubias MCH (RBC) [Entitic mass] 29.6 pg Normal 25.9-34.0 [facility] [place] Comment on above: Performed By: #### D ATCBC #### [facility] [address] [place] [address] Dr. Power Covarrubias MCHC (RBC) [Mass/Vol] 31.7 g/dL Normal 29.9-35.2 [facility] Comment on above: Performed By: #### D ATCBC #### [facility] [address] [place] [address] Dr. Power Covarrubias MCV (RBC) [Entitic vol] 93.3 fL Normal 80.0-94.0 [facility] [place] Comment on above: Performed By: #### D ATCBC #### [facility] [address] [place] [address] Dr. Power Covarrubias MONO # 0.3 103/ul Normal 0.3-0.8 [facility] [place] Comment on above: Performed By: #### D ATCBC #### [facility] [address] [place] [address] Dr. Power Covarrubias Monocytes/100 WBC (Bld) 7.5 % Normal 1.7-12.0 [facility] [place] Comment on above: Performed By: #### D ATCBC #### [facility] [address] [place] [address] Dr. Power Covarrubias NEUT # 3.4 103/ul Normal 1.4-6.5 [facility] Comment on above: Performed By: #### D ATCBC #### [facility] [address] [place] [address] Dr. Power Covarrubias Neutrophils/100 WBC (Bld) 73.5 % Normal 43.0-75.0 [facility] Comment on above: Performed By: #### D ATCBC #### [facility] [address] [place] [address] Dr. Power Covarrubias Platelet mean volume (Bld) [Entitic vol] 9.9 fL Normal 9.5-13.5 [facility] Comment on above: Performed By: #### D ATCBC #### [facility] [address] [place] [address] Dr. Power Covarrubias PLT 198 103/ul Normal 150-450 [facility] Comment on above: Performed By: #### D ATCBC #### [facility] [address] [place] [address] [address] Power Covarrubias RBC 4.36 106/ul Critically low 4.70-6.10 [facility] Comment on above: Performed By: #### D ATCBC #### [facility] [address] [place] [address] Dr. Power Covarrubias WBC 4.6 103/ul Normal 4.0-11.0 [facility] [place] Comment on above: Performed By: #### D ATCBC #### [facility] [address] [place] [address] Dr. Power Covarrubias BRE - LIPID PROFILEon 2022 CHOL-HDL RATIO NORM SEE BELOW Normal [facility] Comment on above: Result Comment: 3.3 - 4.4 LOW RISK 4.4 - 7.1 AVERAGE RISK 7.1 - 11.0 MODERATE RISK >11.0 HIGH RISK Performed By: #### D ATLIPI, DATPSA, DATBMP #### [facility] [address] [place] [address] Dr. Power Covarrubias Cholesterol.total/Ch olesterol in HDL [Mass ratio] 2.2 {ratio} Normal [facility] Comment on above: Performed By: #### D ATLIPI, DATPSA, DATBMP #### [facility] [address] [place] [address] Dr. Power Covarrubias BRE- BMP WITH LIPIDon 2022 Anion gap [Moles/Vol] 12.8 mmol/L Normal [facility] Comment on above: Performed By: #### D ATLIPI, DATPSA, DATBMP #### [facility] [address] [place] [address] [address] Power Covarrubias Calcium [Mass/Vol] 9.3 mg/dL Normal 8.5-10.[address] [facility] Comment on above: Performed By: #### D ATLIPI, DATPSA, DATBMP #### [facility] [address] [place] [address] [address] Power Covarrubias Chloride [Moles/Vol] 107 mmol/L Normal 98-107 [facility] Comment on above: Performed By: #### D ATLIPI, DATPSA, DATBMP #### [facility] [address] [place] [address] Dr. Power Covarrubias Cholesterol [Mass/Vol] 123 mg/dL Normal <=200 [facility] Comment on above: Performed By: #### D ATLIPI, DATPSA, DATBMP #### [facility] [address] [place] [address] Dr. Power Covarrubias Cholesterol in HDL [Mass/Vol] 56 mg/dL Normal 40-60 [facility] Comment on above: Performed By: #### D ATLIPI, DATPSA, DATBMP #### [facility] [address] [place] [address] Dr. Power Covarrubias Cholesterol in LDL [Mass/Vol] 52.0 mg/dL Normal [facility] Comment on above: Performed By: #### D ATLIPI, DATPSA, DATBMP #### [facility] [address] [place] [address] Dr. Power Covarrubias CO2 [Moles/Vol] 28.7 mmol/L Normal 21.0-32.0 [facility] Comment on above: Performed By: #### D ATLIPI, DATPSA, DATBMP #### [facility] [address] [place] [address] Dr. Power Covarrubias Creatinine [Mass/Vol] 0.93 mg/dL Normal 0.70-1.30 [facility] Comment on above: Performed By: #### D ATLIPI, DATPSA, DATBMP #### [facility] [address] [place] [address] Dr. Power Covarrubias EGFR-AF CHADIAN >60 Normal >=60 [facility] Comment on above: Performed By: #### D ATLIPI, DATPSA, DATBMP #### [facility] [address] [address] [address] Power Covarrubias EGFR-NON AF CHADIAN >60 Normal >=60 [facility] Comment on above: Performed By: #### D ATLIPI, DATPSA, DATBMP #### [facility] [address] [address] [address] Power Covarrubias Glucose [Mass/Vol] 97 mg/dL Normal 74-106 [facility] Comment on above: Performed By: #### D ATLIPI, DATPSA, DATBMP #### [facility] [address] [place] [address] Dr. Power Covarrubias HDL NORMAL > or = 60 mg/dl - LO W CARDIOVASCULAR RISK <40 mg/dl - HIGH CARDIOVASCULAR RISK Normal [facility] Comment on above: Performed By: #### D ATLIPI, DATPSA, DATBMP #### [facility] [address] [place] [address] Dr. Power Covarrubias LDL CALC NORMAL SEE BELOW Normal [facility] Comment on above: Result Comment: <100 mg/dl OPTIMAL 100 - 129 mg/dl NEAR OR ABOVE OPTIMAL 130 - 159 mg/dl BORDERLINE HIGH 160 - 189 mg/dl HIGH >190 mg/dl VERY HIGH Performed By: #### D ATLIPI, DATPSA, DATBMP #### [facility] [address] [address] [address] Power Covarrubias Potassium [Moles/Vol] 3.5 mmol/L Normal 3.5-5.1 [facility] Comment on above: Performed By: #### D ATLIPI, DATPSA, DATBMP #### [facility] [address] [place] [address] [address] Power Covarrubias Sodium [Moles/Vol] 145 mmol/L Normal 136-145 [facility] Comment on above: Performed By: #### D ATLIPI, DATPSA, DATBMP #### [facility] [address] [place] [address] [address] Power Covarrubias Triglyceride [Mass/Vol] 75 mg/dL Normal <=150 [facility] Comment on above: Performed By: #### D ATLIPI, DATPSA, DATBMP #### [facility] [address] [address] [address] Power Covarrubias Urea nitrogen [Mass/Vol] 11.0 mg/dL Normal 7.0-18.0 [facility] Comment on above: Performed By: #### D ATLIPI, DATPSA, DATBMP #### [facility] [address] [address] [address] Power Covarrubias Urea nitrogen/Creatinine [Mass ratio] 11.8 mg/mg Normal [facility] Comment on above: Performed By: #### D ATLIPI, DATPSA, DATBMP #### [facility] [address] [address] [address] Power Covarrubias VLDL CALC 15.0 mg/dL Normal [facility] Comment on above: Performed By: #### D ATLIPI, DATPSA, DATBMP #### [facility] [address] [address] [address] Power Covarrubias GLYCOHEMOGLOBIN A1Con 2022 ADA RECOMMENDATION SEE BELOW Normal [facility] Comment on above: Result Comment: ADA RECOMMENDED LIMIT 4.0 - 6.0 ADA THERAPEUTIC TARGET < 7.0 ACTION SUGGESTED > 7.0 Performed By: #### D ATLIPI, DATPSA, DATBMP #### [facility] [address] [place] [address] [address] Power Covarrubias Glucose [Mass/Vol] 105 mg/dL Normal [facility] Comment on above: Performed By: #### D ATLIPI, DATPSA, DATBMP #### [facility] [address] [place] [address] Dr. Power Covarrubias HbA1c (Bld) [Mass fraction] 5.3 % Normal 4.5-6.2 [facility] Comment on above: Performed By: #### D ATLIPI, DATPSA, DATBMP #### [facility] [address] [place] [address] Dr. Power Covarrubias CBC AUTO DIFFon 12-10-2022 BASO # 0.0 103/ul Normal 0.0-0.1 [facility] Comment on above: Performed By: #### D ATLIPI, DATPSA, DATBMP #### [facility] [address] [place] [address] Dr. Power Covarrubias Basophils/100 WBC (Bld) 0.4 % Normal 0.2-2.0 [facility] Comment on above: Performed By: #### D ATLIPI, DATPSA, DATBMP #### [facility] [address] [place] [address] Dr. Power Covarrubias EO # 0.2 103/ul Normal 0.0-0.7 [facility] Comment on above: Performed By: #### D ATLIPI, DATPSA, DATBMP #### [facility] [address] [place] [address] Dr. Power Covarrubias Eosinophils/100 WBC (Bld) 3.6 % Normal 0.9-7.0 [facility] Comment on above: Performed By: #### D ATLIPI, DATPSA, DATBMP #### [facility] [address] [place] [address] Dr. Power Covarrubias Erythrocyte distribution width (RBC) [Ratio] 13.5 % Normal 11.0-15.0 [facility] [facility] Comment on above: Performed By: #### D ATLIPI, DATPSA, DATBMP #### [facility] [address] [place] [address] Dr. Power Covarrubias Hematocrit (Bld) [Volume fraction] 37.5 % Critically low 42.0-54.0 [facility] Comment on above: Performed By: #### D ATLIPI, DATPSA, DATBMP #### [facility] [address] [place] [address] Dr. Power Covarrubias Hemoglobin (Bld) [Mass/Vol] 12.0 g/dL Critically low 14.0-18.0 [facility] Comment on above: Performed By: #### D ATLIPI, DATPSA, DATBMP #### [facility] [address] [place] [address] Dr. Power Covarrubias IG # 0.02 10e3/ul Normal 0.00-0.03 [facility] Comment on above: Performed By: #### D ATLIPI, DATPSA, DATBMP #### [facility] [address] [place] [address] Dr. Power Covarrubias IG % 0.4 % Normal 0.0-0.5 [facility] Comment on above: Performed By: #### D ATLIPI, DATPSA, DATBMP #### [facility] [address] [place] [address] Dr. Power Covarrubias LYMPH # 0.9 103/ul Critically low 1.2-3.8 [facility] Comment on above: Performed By: #### D ATLIPI, DATPSA, DATBMP #### [facility] [address] [place] [address] Dr. Power Covarrubias Lymphocytes/100 WBC (Bld) 17.7 % Critically low 20.5-60.0 [facility] Comment on above: Performed By: #### D ATLIPI, DATPSA, DATBMP #### [facility] [address] [place] [address] Dr. Power Covarrubias MANUAL DIFF REQ NO Normal [facility] Comment on above: Performed By: #### D ATLIPI, DATPSA, DATBMP #### [facility] [address] [place] [address] Dr. Power Covarrubias MCH (RBC) [Entitic mass] 29.7 pg Normal 25.9-34.0 [facility] Comment on above: Performed By: #### D ATLIPI, DATPSA, DATBMP #### [facility] [address] [place] [address] Dr. Power Covarrubias MCHC (RBC) [Mass/Vol] 32.0 g/dL Normal 29.9-35.2 [facility] Comment on above: Performed By: #### D ATLIPI, DATPSA, DATBMP #### [facility] [address] [place] [address] Dr. Power Covarrubias MCV (RBC) [Entitic vol] 92.8 fL Normal 80.0-94.0 [facility] Comment on above: Performed By: #### D ATLIPI, DATPSA, DATBMP #### [facility] [address] [place] [address] Dr. Power Covarrubias MONO # 0.6 103/ul Normal 0.3-0.8 [facility] Comment on above: Performed By: #### D ATLIPI, DATPSA, DATBMP #### [facility] [address] [place] [address] Dr. Power Covarrubias Monocytes/100 WBC (Bld) 11.1 % Normal 1.7-12.0 [facility] Comment on above: Performed By: #### D ATLIPI, DATPSA, DATBMP #### [facility] [address] [place] [address] Dr. Power Covarrubias NEUT # 3.6 103/ul Normal 1.4-6.5 [facility] Comment on above: Performed By: #### D ATLIPI, DATPSA, DATBMP #### [facility] [address] [place] [address] Dr. Power Covarrubias Neutrophils/100 WBC (Bld) 66.8 % Normal 43.0-75.0 [facility] Comment on above: Performed By: #### D ATLIPI, DATPSA, DATBMP #### [facility] [address] [place] [address] Dr. Power Covarrubias Platelet mean volume (Bld) [Entitic vol] 9.8 fL Normal 9.5-13.5 [facility] Comment on above: Performed By: #### D ATLIPI, DATPSA, DATBMP #### [facility] [address] [place] [address] Dr. Power Covarrubias PLT 199 103/ul Normal 150-450 [facility] Comment on above: Performed By: #### D ATLIPI, DATPSA, DATBMP #### [facility] [address] [address] [address] Power Covarrubias RBC 4.04 106/ul Critically low 4.70-6.10 [facility] Comment on above: Performed By: #### D ATLIPI, DATPSA, DATBMP #### [facility] [address] [place] [address] Dr. Power Covarrubias WBC 5.3 103/ul Normal 4.0-11.0 [facility] Comment on above: Performed By: #### D ATLIPI, DATPSA, DATBMP #### [facility] [address] [place] [address] Dr. Power Covarrubias PROF 14(COMP METB)on 023 Albumin [Mass/Vol] 3.3 g/dL Critically low 3.4-5.0 [facility] Comment on above: Performed By: #### C MP #### [facility] [address] [place] [address] Dr. Power Covarrubias Albumin/Globulin [Mass ratio] 0.9 {ratio} Normal [facility] Comment on above: Performed By: #### C MP #### [facility] [address] [place] [address] Dr. Power Covarrubias ALP [Catalytic activity/Vol] 99 U/L Normal 46-116 [facility] Comment on above: Performed By: #### C MP #### [facility] [address] [place] [address] Dr. Power Covarrubias ALT [Catalytic activity/Vol] 17 U/L Normal 16-63 [facility] Comment on above: Performed By: #### C MP #### [facility] [address] [place] [address] Dr. Power Covarrubias Anion gap [Moles/Vol] 11.6 mmol/L Normal [facility] Comment on above: Performed By: #### C MP #### [facility] [address] [place] [address] Dr. Power Covarrubias AST [Catalytic activity/Vol] 15 U/L Normal 15-37 [facility] Comment on above: Performed By: #### C MP #### [facility] [address] [address] [address] Power Covarrubias Bilirubin [Mass/Vol] 0.6 mg/dL Normal 0.2-1.0 [facility] Comment on above: Performed By: #### C MP #### [facility] [address] [address] [address] Power Covarrubias Calcium [Mass/Vol] 9.4 mg/dL Normal 8.5-10.1 [facility] Comment on above: Performed By: #### C MP #### [facility] [address] [address] [address] Power Covarrubias Chloride [Moles/Vol] 107 mmol/L Normal 98-107 [facility] Comment on above: Performed By: #### C MP #### [facility] [address] [place] [address] Dr. Power Covarrubias CO2 [Moles/Vol] 29.2 mmol/L Normal 21.0-32.0 [facility] Comment on above: Performed By: #### C MP #### [facility] [address] [place] [address] Dr. Power Covarrubias Creatinine [Mass/Vol] 0.87 mg/dL Normal 0.70-1.30 [facility] Comment on above: Performed By: #### C MP #### [facility] [address] [place] [address] Dr. Power Covarrubias EGFR-AF CHADIAN >60 Normal >=60 [facility] Comment on above: Performed By: #### C MP #### [facility] [address] [address] [address] Power Covarrubias EGFR-NON AF CHADIAN >60 Normal >=60 [facility] Comment on above: Performed By: #### C MP #### [facility] [address] [place] [address] Dr. Power Covarrubias Globulin (S) [Mass/Vol] 3.6 g/dL Normal [facility] Comment on above: Performed By: #### C MP #### [facility] [address] [address] [address] Power Covarrubias Glucose [Mass/Vol] 107 mg/dL Critically high 74-106 [facility] Comment on above: Performed By: #### C MP #### [facility] [address] [address] [address] Power Covarrubias Potassium [Moles/Vol] 3.8 mmol/L Normal 3.5-5.1 [facility] Comment on above: Performed By: #### C MP #### [facility] [address] [address] [address] Power Covarrubias Protein [Mass/Vol] 6.9 g/dL Normal 6.4-8.2 [facility] Comment on above: Performed By: #### C MP #### [facility] [address] [place] [address] Dr. Power Covarrubias Sodium [Moles/Vol] 144 mmol/L Normal 136-145 [facility] Comment on above: Performed By: #### C MP #### [facility] [address] [place] [address] Dr. Power Covarrubias Urea nitrogen [Mass/Vol] 12.0 mg/dL Normal 7.0-18.0 [facility] Comment on above: Performed By: #### C MP #### [facility] [address] [place] [address] Dr. Power Covarrubias Urea nitrogen/Creatinine [Mass ratio] 13.8 mg/mg Normal [facility] Comment on above: Performed By: #### C MP #### [facility] [address] [place] [address] Dr. Power Covarrubias CBC AUTO DIFFon 08-31-2022 BASO # 0.0 103/ul Normal 0.0-0.1 [facility] Comment on above: Performed By: #### D ATLIPI, DATPSA, DATBMP #### [facility] [address] [address] [address] Power Covarrubias Basophils/100 WBC (Bld) 0.7 % Normal 0.2-2.0 [facility] Comment on above: Performed By: #### D ATLIPI, DATPSA, DATBMP #### [facility] [address] [place] [address] Dr. Power Covarrubias EO # 0.2 103/ul Normal 0.0-0.7 [facility] Comment on above: Performed By: #### D ATLIPI, DATPSA, DATBMP #### [facility] [address] [place] [address] Dr. Power Covarrubias Eosinophils/100 WBC (Bld) 3.5 % Normal 0.9-7.0 [facility] Comment on above: Performed By: #### D ATLIPI, DATPSA, DATBMP #### [facility] [address] [place] [address] Dr. Power Covarrubias Erythrocyte distribution width (RBC) [Ratio] 13.2 % Normal 11.0-15.0 [facility] Comment on above: Performed By: #### D ATLIPI, DATPSA, DATBMP #### [facility] [address] [place] [address] Dr. Power Covarrubias Hematocrit (Bld) [Volume fraction] 39.3 % Critically low 42.0-54.0 [facility] Comment on above: Performed By: #### D ATLIPI, DATPSA, DATBMP #### [facility] [address] [place] [address] Dr. Power Covarrubias Hemoglobin (Bld) [Mass/Vol] 12.9 g/dL Critically low 14.0-18.0 [facility] Comment on above: Performed By: #### D ATLIPI, DATPSA, DATBMP #### [facility] [address] [place] [address] Dr. Power Covarrubias IG # 0.02 10e3/ul Normal 0.00-0.03 [facility] Comment on above: Performed By: #### D ATLIPI, DATPSA, DATBMP #### [facility] [address] [place] [address] Dr. Power Covarrubias IG % 0.4 % Normal 0.0-0.5 [facility] Comment on above: Performed By: #### D ATLIPI, DATPSA, DATBMP #### [facility] [address] [place] [address] Dr. Power Covarrubias LYMPH # 0.9 103/ul Critically low 1.2-3.8 [facility] Comment on above: Performed By: #### D ATLIPI, DATPSA, DATBMP #### [facility] [address] [place] [address] Dr. Power Covarrubias Lymphocytes/100 WBC (Bld) 16.4 % Critically low 20.5-60.0 [facility] Comment on above: Performed By: #### D ATLIPI, DATPSA, DATBMP #### [facility] [address] [place] [address] Dr. Power Covarrubias MCH (RBC) [Entitic mass] 30.7 pg Normal 25.9-34.0 [facility] Comment on above: Performed By: #### D ATLIPI, DATPSA, DATBMP #### [facility] [address] [place] [address] Dr. Power Covarrubias MCHC (RBC) [Mass/Vol] 32.8 g/dL Normal 29.9-35.2 [facility] Comment on above: Performed By: #### D ATLIPI, DATPSA, DATBMP #### [facility] [address] [place] [address] Dr. Power Covarrubias MCV (RBC) [Entitic vol] 93.6 fL Normal 80.0-94.0 [facility] Comment on above: Performed By: #### D ATLIPI, DATPSA, DATBMP #### [facility] [address] [place] [address] Dr. Power Covarrubias MONO # 0.5 103/ul Normal 0.3-0.8 [facility] Comment on above: Performed By: #### D ATLIPI, DATPSA, DATBMP #### [facility] [address] [place] [address] Dr. Power Covarrubias Monocytes/100 WBC (Bld) 9.0 % Normal 1.7-12.0 [facility] Comment on above: Performed By: #### D ATLIPI, DATPSA, DATBMP #### [facility] [address] [address] [address] Power Covarrubias NEUT # 3.8 103/ul Normal 1.4-6.5 [facility] Comment on above: Performed By: #### D ATLIPI, DATPSA, DATBMP #### [facility] [address] [address] [address] Power Covarrubias Neutrophils/100 WBC (Bld) 70.0 % Normal 43.0-75.0 [facility] Comment on above: Performed By: #### D ATLIPI, DATPSA, DATBMP #### [facility] [address] [place] [address] Dr. Power Covarrubias Platelet mean volume (Bld) [Entitic vol] 9.9 fL Normal 9.5-13.5 [facility] Comment on above: Performed By: #### D ATLIPI, DATPSA, DATBMP #### [facility] [address] [address] [address] Power Covarrubias PLT 195 103/ul Normal 150-450 [facility] Comment on above: Performed By: #### D ATLIPI, DATPSA, DATBMP #### [facility] [address] [address] [address] Power Covarrubias RBC 4.20 106/ul Critically low 4.70-6.10 [facility] Comment on above: Performed By: #### D ATLIPI, DATPSA, DATBMP #### [facility] [address] [address] [address] Power Covarrubias WBC 5.4 103/ul Normal 4.0-11.0 [facility] Comment on above: Performed By: #### D ATLIPI, DATPSA, DATBMP #### [facility] [address] [address] [address] Power Covarrubias BRE- BMP WITH LIPIDon 2021 Anion gap [Moles/Vol] 10.8 mmol/L Normal [facility] Comment on above: Performed By: #### D ATLIPI, DATPSA, DATBMP #### [facility] [address] [address] [address] Power Covarrubias Calcium [Mass/Vol] 9.3 mg/dL Normal 8.5-10.[address] [facility] Comment on above: Performed By: #### D ATLIPI, DATPSA, DATBMP #### [facility] [address] [address] [address] Power Covarrubias Chloride [Moles/Vol] 105 mmol/L Normal 98-107 [facility] Comment on above: Performed By: #### D ATLIPI, DATPSA, DATBMP #### [facility] [address] [place] [address] Dr. Power Covarrubias Cholesterol [Mass/Vol] 123 mg/dL Normal <=200 [facility] Comment on above: Performed By: #### D ATLIPI, DATPSA, DATBMP #### [facility] [address] [address] [address] Power Covarrubias Cholesterol in HDL [Mass/Vol] 51 mg/dL Normal 40-60 [facility] Comment on above: Performed By: #### D ATLIPI, DATPSA, DATBMP #### [facility] [address] [place] [address] Dr. Power Covarrubias Cholesterol in LDL [Mass/Vol] 56.0 mg/dL Normal [facility] Comment on above: Performed By: #### D ATLIPI, DATPSA, DATBMP #### [facility] [address] [place] [address] Dr. Power Covarrubias CO2 [Moles/Vol] 28.2 mmol/L Normal 21.0-32.0 [facility] Comment on above: Performed By: #### D ATLIPI, DATPSA, DATBMP #### [facility] [address] [address] [address] Pwoer Covarrubias Creatinine [Mass/Vol] 0.86 mg/dL Normal 0.70-1.30 [facility] Comment on above: Performed By: #### D ATLIPI, DATPSA, DATBMP #### [facility] [address] [address] [address] Power Covarrubias EGFR-AF CHADIAN >60 Normal >=60 [facility] Comment on above: Performed By: #### D ATLIPI, DATPSA, DATBMP #### [facility] [address] [address] [address] Power Covarrubias EGFR-NON AF CHADIAN >60 Normal >=60 [facility] Comment on above: Performed By: #### D ATLIPI, DATPSA, DATBMP #### [facility] [address] [address] [address] Power Covarrubias Glucose [Mass/Vol] 90 mg/dL Normal 74-106 [facility] Comment on above: Performed By: #### D ATLIPI, DATPSA, DATBMP #### [facility] [address] [address] [address] Power Covarrubias HDL NORMAL > or = 60 mg/dl - LO W CARDIOVASCULAR RISK <40 mg/dl - HIGH CARDIOVASCULAR RISK Normal [facility] Comment on above: Performed By: #### D ATLIPI, DATPSA, DATBMP #### [facility] [address] [address] [address] Power Covarrubias LDL CALC NORMAL SEE BELOW Normal [facility] Comment on above: Result Comment: <100 mg/dl OPTIMAL 100 - 129 mg/dl NEAR OR ABOVE OPTIMAL 130 - 159 mg/dl BORDERLINE HIGH 160 - 189 mg/dl HIGH >190 mg/dl VERY HIGH Performed By: #### D ATLIPI, DATPSA, DATBMP #### [facility] [address] [address] [address] Power Covarrubias Potassium [Moles/Vol] 4.0 mmol/L Normal 3.5-5.1 [facility] Comment on above: Performed By: #### D ATLIPI, DATPSA, DATBMP #### [facility] [address] [address] [address] Power Covarrubias Sodium [Moles/Vol] 140 mmol/L Normal 136-[address] [facility] Comment on above: Performed By: #### D ATLIPI, DATPSA, DATBMP #### [facility] [address] [address] [address] Power Covarrubias Triglyceride [Mass/Vol] 80 mg/dL Normal <=150 [facility] Comment on above: Performed By: #### D ATLIPI, DATPSA, DATBMP #### [facility] [address] [place] [address] Dr. Power Covarrubias Urea nitrogen [Mass/Vol] 14.0 mg/dL Normal 7.0-18.0 [facility] Comment on above: Performed By: #### D ATLIPI, DATPSA, DATBMP #### [facility] [address] [place] [address] Dr. Power Covarrubias Urea nitrogen/Creatinine [Mass ratio] 16.3 mg/mg Normal [facility] Comment on above: Performed By: #### D ATLIPI, DATPSA, DATBMP #### [facility] [address] [place] [address] Dr. Power Covarrubias VLDL CALC 16.0 mg/dL Normal [facility] Comment on above: Performed By: #### D ATLIPI, DATPSA, DATBMP #### [facility] [address] [place] [address] Dr. Power Covarrubias OCC BLD IMMUNO SCREENon 06-16 OCCULT BLOOD Negative Normal NEGATIVE [facility] Comment on above: Performed By: #### O BSCRN #### [facility] [address] [place] [address] Dr. Power Covarrubias T4 [facility]on 06-30-2022 T4 [Mass/Vol] 9.2 ug/dL Normal 4.5-12.0 [facility] Comment on above: Performed By: #### D ATLIPI, DATPSA, DATBMP #### [facility] [address] [place] [address] Dr. Power Covarrubias CBC AUTO DIFFon 06-29-2022 BASO # 0.0 103/ul Normal 0.0-0.1 [facility] Comment on above: Performed By: #### D ATLIPI, DATPSA, DATBMP #### [facility] [address] [place] [address] Dr. Power Covarrubias Basophils/100 WBC (Bld) 0.5 % Normal 0.2-2.0 [facility] Comment on above: Performed By: #### D ATLIPI, DATPSA, DATBMP #### [facility] [address] [place] [address] Dr. Power Covarrubias EO # 0.1 103/ul Normal 0.0-0.7 [facility] Comment on above: Performed By: #### D ATLIPI, DATPSA, DATBMP #### [facility] [address] [place] [address] Dr. Power Covarrubias Eosinophils/100 WBC (Bld) 2.5 % Normal 0.9-7.0 [facility] Comment on above: Performed By: #### D ATLIPI, DATPSA, DATBMP #### [facility] [address] [place] [address] Dr. Power Covarrubias Erythrocyte distribution width (RBC) [Ratio] 13.4 % Normal 11.0-15.0 [facility] Comment on above: Performed By: #### D ATLIPI, DATPSA, DATBMP #### [facility] [address] [place] [address] Dr. Power Covarrubias Hematocrit (Bld) [Volume fraction] 38.1 % Critically low 42.0-54.0 [facility] Comment on above: Performed By: #### D ATLIPI, DATPSA, DATBMP #### [facility] [address] [place] [address] Dr. Power Covarrubias Hemoglobin (Bld) [Mass/Vol] 12.0 g/dL Critically low 14.0-18.0 [facility] Comment on above: Performed By: #### D ATLIPI, DATPSA, DATBMP #### [facility] [address] [address] [address] Power Covarrubias IG # 0.01 10e3/ul Normal 0.00-0.03 [facility] Comment on above: Performed By: #### D ATLIPI, DATPSA, DATBMP #### [facility] [address] [place] [address] Dr. Power Covarrubias IG % 0.2 % Normal 0.0-0.5 [facility] Comment on above: Performed By: #### D ATLIPI, DATPSA, DATBMP #### [facility] [address] [place] [address] Dr. Power Covarrubias LYMPH # 0.9 103/ul Critically low 1.2-3.8 [facility] Comment on above: Performed By: #### D ATLIPI, DATPSA, DATBMP #### [facility] [address] [place] [address] Dr. Power Covarrubias Lymphocytes/100 WBC (Bld) 15.5 % Critically low 20.5-60.0 [facility] Comment on above: Performed By: #### D ATLIPI, DATPSA, DATBMP #### [facility] [address] [place] [address] Dr. Power Covarrubias MANUAL DIFF REQ NO Normal [facility] Comment on above: Performed By: #### D ATLIPI, DATPSA, DATBMP #### [facility] [address] [place] [address] Dr. Power Covarrubias MCH (RBC) [Entitic mass] 30.2 pg Normal 25.9-34.0 [facility] Comment on above: Performed By: #### D ATLIPI, DATPSA, DATBMP #### [facility] [address] [place] [address] Dr. Power Covarrubias MCHC (RBC) [Mass/Vol] 31.5 g/dL Normal 29.9-35.2 [facility] Comment on above: Performed By: #### D ATLIPI, DATPSA, DATBMP #### [facility] [address] [place] [address] Dr. Power Covarrubias MCV (RBC) [Entitic vol] 96.0 fL Critically high 80.0-94.0 [facility] Comment on above: Performed By: #### D ATLIPI, DATPSA, DATBMP #### [facility] [address] [place] [address] Dr. Power Covarrubias MONO # 0.5 103/ul Normal 0.3-0.8 [facility] Comment on above: Performed By: #### D ATLIPI, DATPSA, DATBMP #### [facility] [address] [place] [address] Dr. Power Covarrubias Monocytes/100 WBC (Bld) 9.5 % Normal 1.7-12.0 [facility] Comment on above: Performed By: #### D ATLIPI, DATPSA, DATBMP #### [facility] [address] [place] [address] Dr. Power Covarrubias NEUT # 4.1 103/ul Normal 1.4-6.5 [facility] Comment on above: Performed By: #### D ATLIPI, DATPSA, DATBMP #### [facility] [address] [place] [address] Dr. Power Covarrubias Neutrophils/100 WBC (Bld) 71.8 % Normal 43.0-75.0 [facility] Comment on above: Performed By: #### D ATLIPI, DATPSA, DATBMP #### [facility] [address] [place] [address] Dr. Power Covarrubias Platelet mean volume (Bld) [Entitic vol] 9.8 fL Normal 9.5-13.5 [facility] Comment on above: Performed By: #### D ATLIPI, DATPSA, DATBMP #### [facility] [address] [place] [address] Dr. Power Covarrubias PLT 212 103/ul Normal 150-450 [facility] Comment on above: Performed By: #### D ATLIPI, DATPSA, DATBMP #### [facility] [address] [place] [address] Dr. Power Covarrubias RBC 3.97 106/ul Critically low 4.70-6.10 The [facility] Comment on above: Performed By: #### D ATLIPEmeterio DATPSA, DATBMP #### [facility] [address] [place] [address] Dr. Power Covarrubias WBC 5.7 103/ul Normal 4.0-11.0 [facility] Comment on above: Performed By: #### D ATLIPI DATPSA, DATBMP #### [facility] [address] [place] [address] Dr. Power Covarrubias FREE T3on 06-29-2022 FREE T3 2.73 pg/mlL Normal 2.18-3.98 [facility] Comment on above: Performed By: #### D ATLMACK DATPSA, DATBMP #### [facility] [address] [place] [address] Dr. Power Covarrubias GLYCOHEMOGLOBIN A1Con 2021 ADA RECOMMENDATION SEE BELOW Normal [facility] Comment on above: Result Comment: ADA RECOMMENDED LIMIT 4.0 - 6.0 ADA THERAPEUTIC TARGET < 7.0 ACTION SUGGESTED > 7.0 Performed By: #### A 1C #### [facility] [address] [place] [address] Dr. Power Covarrubias Glucose [Mass/Vol] 114 mg/dL Normal The [facility] Comment on above: Performed By: #### A 1C #### [facility] [address] [place] [address] Dr. Power Covarrubias HbA1c (Bld) [Mass fraction] 5.6 % Normal 4.5-6.2 [facility] Comment on above: Performed By: #### A 1C #### [facility] [address] [place] [address] Dr. Power Covarrubias LIPID PROFILEon 06-29-2022 CHOL-HDL RATIO NORM SEE BELOW Normal [facility] Comment on above: Result Comment: 3.3 - 4.4 LOW RISK 4.4 - 7.1 AVERAGE RISK 7.1 - 11.0 MODERATE RISK >11.0 HIGH RISK Performed By: #### D ATLIPI, DATPSA, DATBMP #### [facility] [address] [address] [address] Power Covarrubias Cholesterol [Mass/Vol] 110 mg/dL Normal <=200 [facility] Comment on above: Performed By: #### D ATLIPI, DATPSA, DATBMP #### [facility] [address] [address] [address] Power Covarrubias Cholesterol in HDL [Mass/Vol] 47 mg/dL Normal 40-60 [facility] Comment on above: Performed By: #### D ATLIPI, DATPSA, DATBMP #### [facility] [address] [address] [address] Power Covarrubias Cholesterol in LDL [Mass/Vol] 51.2 mg/dL Normal [facility] Comment on above: Performed By: #### D ATLIPI, DATPSA, DATBMP #### [facility] [address] [address] [address] Power Covarrubias Cholesterol.total/Ch olesterol in HDL [Mass ratio] 2.3 {ratio} Normal [facility] Comment on above: Performed By: #### D ATLIPI, DATPSA, DATBMP #### [facility] [address] [address] [address] Power Covarrubias HDL NORMAL > or = 60 mg/dl - LO W CARDIOVASCULAR RISK <40 mg/dl - HIGH CARDIOVASCULAR RISK Normal [facility] Comment on above: Performed By: #### D ATLIPI, DATPSA, DATBMP #### [facility] [address] [address] [address] Power Covarrubias LDL CALC NORMAL SEE BELOW Normal [facility] Comment on above: Result Comment: <100 mg/dl OPTIMAL 100 - 129 mg/dl NEAR OR ABOVE OPTIMAL 130 - 159 mg/dl BORDERLINE HIGH 160 - 189 mg/dl HIGH >190 mg/dl VERY HIGH Performed By: #### D ATLIPI, DATPSA, DATBMP #### [facility] [address] [address] [address] Power Covarrubias Triglyceride [Mass/Vol] 59 mg/dL Normal <=150 The [facility] Comment on above: Performed By: #### D ATLIPI, DATPSA, DATBMP #### [facility] [address] [place] [address] Dr. Power Covarrubias VLDL CALC 11.8 mg/dL Normal [facility] Comment on above: Performed By: #### D ATLIPI, DATPSA, DATBMP #### [facility] [address] [place] [address] Dr. Power Covarrubias PROF 14(COMP METB)on 022 Albumin [Mass/Vol] 3.3 g/dL Critically low 3.4-5.0 Th [facility] Comment on above: Performed By: #### D ATLIPI, DATPSA, DATBMP #### [facility] [address] [place] [address] Dr. Power Covarrubias Albumin/Globulin [Mass ratio] 0.9 {ratio} Normal [facility] Comment on above: Performed By: #### D ATLIPI, DATPSA, DATBMP #### [facility] [address] [place] [address] Dr. Power Covarrubias ALP [Catalytic activity/Vol] 100 U/L Normal 46-116 [facility] Comment on above: Performed By: #### D ATLIPI, DATPSA, DATBMP #### [facility] [address] [place] [address] Dr. Power Covarrubias ALT [Catalytic activity/Vol] 16 U/L Normal 16-63 [facility] Comment on above: Performed By: #### D ATLIPI, DATPSA, DATBMP #### [facility] [address] [place] [address] Dr. Poewr Covarrubias Anion gap [Moles/Vol] 11.4 mmol/L Normal [facility] Comment on above: Performed By: #### D ATLIPI, DATPSA, DATBMP #### [facility] [address] [place] [address] Dr. Power Covarrubias AST [Catalytic activity/Vol] 14 U/L Critically low 15-37 [facility] Comment on above: Performed By: #### D ATLIPI, DATPSA, DATBMP #### [facility] [address] [address] [address] Power Covarrubias Bilirubin [Mass/Vol] 0.7 mg/dL Normal 0.2-1.0 [facility] Comment on above: Performed By: #### D ATLIPI, DATPSA, DATBMP #### [facility] [address] [address] [address] Power Covarrubias Calcium [Mass/Vol] 9.0 mg/dL Normal 8.5-10.1 [facility] Comment on above: Performed By: #### D ATLIPI, DATPSA, DATBMP #### [facility] [address] [place] [address] Dr. Power Covarrubias Chloride [Moles/Vol] 107 mmol/L Normal 98-107 [facility] Comment on above: Performed By: #### D ATLIPI, DATPSA, DATBMP #### [facility] [address] [place] [address] Dr. Power Covarrubias CO2 [Moles/Vol] 28.5 mmol/L Normal 21.0-32.0 [facility] Comment on above: Performed By: #### D ATLIPI, DATPSA, DATBMP #### [facility] [address] [place] [address] Dr. Power Covarrubias Creatinine [Mass/Vol] 0.87 mg/dL Normal 0.70-1.30 [facility] Comment on above: Performed By: #### D ATLIPI, DATPSA, DATBMP #### [facility] [address] [place] [address] Dr. Power Covarrubias EGFR-AF CHADIAN >60 Normal >=60 [facility] Comment on above: Performed By: #### D ATLIPI, DATPSA, DATBMP #### [facility] [address] [place] [address] Dr. Power Covarrubias EGFR-NON AF CHADIAN >60 Normal >=60 [facility] Comment on above: Performed By: #### D ATLIPI, DATPSA, DATBMP #### [facility] [address] [address] [address] Power Covarrubias Globulin (S) [Mass/Vol] 3.6 g/dL Normal [facility] Comment on above: Performed By: #### D ATLIPI, DATPSA, DATBMP #### [facility] [address] [address] [address] Power Covarrubias Glucose [Mass/Vol] 90 mg/dL Normal 74-[address] [facility] Comment on above: Performed By: #### D ATLIPI, DATPSA, DATBMP #### [facility] [address] [address] [address] Power Covarrubias Potassium [Moles/Vol] 3.9 mmol/L Normal 3.5-5.1 [facility] Comment on above: Performed By: #### D ATLIPI, DATPSA, DATBMP #### [facility] [address] [address] [address] Power Covarrubias Protein [Mass/Vol] 6.9 g/dL Normal 6.4-8.[address] [facility] Comment on above: Performed By: #### D ATLIPI, DATPSA, DATBMP #### [facility] [address] [place] [address] Dr. Power Covarrubias Sodium [Moles/Vol] 143 mmol/L Normal 136-[address] [facility] Comment on above: Performed By: #### D ATLIPI, DATPSA, DATBMP #### [facility] [address] [place] [address] Dr. Power Covarrubias Urea nitrogen [Mass/Vol] 13.0 mg/dL Normal 7.0-18.0 [facility] Comment on above: Performed By: #### D ATLIPI, DATPSA, DATBMP #### [facility] [address] [place] [address] Dr. Power Covarrubias Urea nitrogen/Creatinine [Mass ratio] 14.9 mg/mg Normal [facility] Comment on above: Performed By: #### D ATLIPI, DATPSA, DATBMP #### [facility] [address] [place] [address] Dr. Power Covarrubias TSHon 06-29-2022 TSH 2.585 uIU/mL Normal 0.358-3.740 [facility] Comment on above: Performed By: #### T SH, LIPID, FT3, CMP #### [facility] [address] [place] [address] Dr. Power Covarrubias CBC AUTO DIFFon 04-09-2022 BASO # 0.1 103/ul Normal 0.0-0.1 [facility] Comment on above: Performed By: #### D ATCBC #### [facility] [address] [place] [address] Dr. Power Covarrubias Basophils/100 WBC (Bld) 1.0 % Normal 0.2-2.0 [facility] Comment on above: Performed By: #### D ATCBC #### [facility] [address] [place] [address] Dr. Power Covarrubias EO # 0.2 103/ul Normal 0.0-0.7 [facility] Comment on above: Performed By: #### D ATCBC #### [facility] [address] [place] [address] Dr. Power Covarrubias Eosinophils/100 WBC (Bld) 3.7 % Normal 0.9-7.0 [facility] Comment on above: Performed By: #### D ATCBC #### [facility] [address] [place] [address] Dr. Power Covarrubias Erythrocyte distribution width (RBC) [Ratio] 13.3 % Normal 11.0-15.0 [facility] Comment on above: Performed By: #### D ATCBC #### [facility] [address] [place] [address] Dr. Power Covarrubias Hematocrit (Bld) [Volume fraction] 37.8 % Critically low 42.0-54.0 [facility] Comment on above: Performed By: #### D ATCBC #### [facility] [address] [place] [address] Dr. Power Covarrubias Hemoglobin (Bld) [Mass/Vol] 12.4 g/dL Critically low 14.0-18.0 [facility] Comment on above: Performed By: #### D ATCBC #### [facility] [address] [address] [address] Power Covarrubias IG # 0.01 10e3/ul Normal 0.00-0.03 [facility] Comment on above: Performed By: #### D ATCBC #### [facility] [address] [address] [address] Power Covarrubias IG % 0.2 % Normal 0.0-0.5 [facility] Comment on above: Performed By: #### D ATCBC #### [facility] [address] [place] [address] Dr. Power Covarrubias LYMPH # 1.0 103/ul Critically low 1.2-3.8 [facility] Comment on above: Performed By: #### D ATCBC #### [facility] [address] [place] [address] Dr. Power Covarrubias Lymphocytes/100 WBC (Bld) 19.0 % Critically low 20.5-60.0 [facility] Comment on above: Performed By: #### D ATCBC #### [facility] [address] [place] [address] Dr. Power Covarrubias MCH (RBC) [Entitic mass] 30.9 pg Normal 25.9-34.0 [facility] Comment on above: Performed By: #### D ATCBC #### [facility] [address] [place] [address] Dr. Power Covarrubias MCHC (RBC) [Mass/Vol] 32.8 g/dL Normal 29.9-35.2 [facility] Comment on above: Performed By: #### D ATCBC #### [facility] [address] [place] [address] Dr. Power Covarrubias MCV (RBC) [Entitic vol] 94.3 fL Critically high 80.0-94.0 [facility] Comment on above: Performed By: #### D ATCBC #### [facility] [address] [place] [address] Dr. Power Covarrubias MONO # 0.5 103/ul Normal 0.3-0.8 [facility] Comment on above: Performed By: #### D ATCBC #### [facility] [address] [place] [address] Dr. Power Covarrubias Monocytes/100 WBC (Bld) 9.4 % Normal 1.7-12.0 [facility] Comment on above: Performed By: #### D ATCBC #### [facility] [address] [place] [address] Dr. Power Covarrubias NEUT # 3.4 103/ul Normal 1.4-6.5 [facility] Comment on above: Performed By: #### D ATCBC #### [facility] [address] [place] [address] Dr. Power Covarrubias Neutrophils/100 WBC (Bld) 66.7 % Normal 43.0-75.0 [facility] Comment on above: Performed By: #### D ATCBC #### [facility] [address] [place] [address] Dr. Power Covarrubias Platelet mean volume (Bld) [Entitic vol] 9.9 fL Normal 9.5-13.5 [facility] Comment on above: Performed By: #### D ATCBC #### [facility] [address] [place] [address] Dr. Power Covarrubias PLT 205 103/ul Normal 150-450 [facility] Comment on above: Performed By: #### D ATCBC #### [facility] [address] [place] [address] Dr. Power Covarrubias RBC 4.01 106/ul Critically low 4.70-6.10 [facility] Comment on above: Performed By: #### D ATCBC #### [facility] [address] [place] [address] Dr. Power Covarrubias WBC 5.1 103/ul Normal 4.0-11.0 [facility] Comment on above: Performed By: #### D ATCBC #### [facility] [address] [place] [address] Dr. Power Covarrubias BRE- BMP WITH LIPIDon 2021 Anion gap [Moles/Vol] 9.5 mmol/L Normal [facility] Comment on above: Performed By: #### D ATLIPI, DATPSA, DATBMP #### [facility] [address] [address] [address] Power Covarrubias Calcium [Mass/Vol] 9.0 mg/dL Normal 8.5-10.[address] [facility] Comment on above: Performed By: #### D ATLIPI, DATPSA, DATBMP #### [facility] [address] [address] [address] Power Covarrubias Chloride [Moles/Vol] 108 mmol/L Critically high 98-107 [facility] Comment on above: Performed By: #### D ATLIPI, DATPSA, DATBMP #### [facility] [address] [place] [address] Dr. Power Covarrubias Cholesterol [Mass/Vol] 114 mg/dL Normal <=200 [facility] Comment on above: Performed By: #### D ATLIPI, DATPSA, DATBMP #### [facility] [address] [address] [address] Power Covarrubias Cholesterol in HDL [Mass/Vol] 49 mg/dL Normal 40-60 [facility] Comment on above: Performed By: #### D ATLIPI, DATPSA, DATBMP #### [facility] [address] [address] [address] Power Covarrubias Cholesterol in LDL [Mass/Vol] 50.4 mg/dL Normal [facility] Comment on above: Performed By: #### D ATLIPI, DATPSA, DATBMP #### [facility] [address] [address] [address] Power Covarrubias CO2 [Moles/Vol] 28.3 mmol/L Normal 21.0-32.0 [facility] Comment on above: Performed By: #### D ATLIPI, DATPSA, DATBMP #### [facility] [address] [address] [address] Power Covarrubias Creatinine [Mass/Vol] 0.88 mg/dL Normal 0.70-1.30 [facility] Comment on above: Performed By: #### D ATLIPI, DATPSA, DATBMP #### [facility] [address] [address] [address] Power Covarrubias EGFR-AF CHADIAN >60 Normal >=60 [facility] Comment on above: Performed By: #### D ATLIPI, DATPSA, DATBMP #### [facility] [address] [address] [address] Power Covarrubias EGFR-NON AF CHADIAN >60 Normal >=60 [facility] Comment on above: Performed By: #### D ATLIPI, DATPSA, DATBMP #### [facility] [address] [place] [address] Dr. Power Covarrubias Glucose [Mass/Vol] 107 mg/dL Critically high 74-106 [facility] Comment on above: Performed By: #### D ATLIPI, DATPSA, DATBMP #### [facility] [address] [address] [address] Power Covarrubias HDL NORMAL > or = 60 mg/dl - LO W CARDIOVASCULAR RISK <40 mg/dl - HIGH CARDIOVASCULAR RISK Normal [facility] Comment on above: Performed By: #### D ATLIPI, DATPSA, DATBMP #### [facility] [address] [address] [address] Power Covarrubias LDL CALC NORMAL SEE BELOW Normal [facility] Comment on above: Result Comment: <100 mg/dl OPTIMAL 100 - 129 mg/dl NEAR OR ABOVE OPTIMAL 130 - 159 mg/dl BORDERLINE HIGH 160 - 189 mg/dl HIGH >190 mg/dl VERY HIGH Performed By: #### D ATLIPI, DATPSA, DATBMP #### [facility] [address] [address] [address] Power Covarrubias Potassium [Moles/Vol] 3.8 mmol/L Normal 3.5-5.1 [facility] Comment on above: Performed By: #### D ATLIPI, DATPSA, DATBMP #### [facility] [address] [address] [address] Power Covarrubias Sodium [Moles/Vol] 142 mmol/L Normal 136-145 [facility] Comment on above: Performed By: #### D ATLIPI, DATPSA, DATBMP #### [facility] [address] [address] [address] Power Covarrubias Triglyceride [Mass/Vol] 73 mg/dL Normal <=150 [facility] Comment on above: Performed By: #### D ATLIPI, DATPSA, DATBMP #### [facility] [address] [address] [address] Power Covarrubias Urea nitrogen [Mass/Vol] 12.0 mg/dL Normal 7.0-18.0 [facility] Comment on above: Performed By: #### D ATLIPI, DATPSA, DATBMP #### [facility] [address] [address] [address] Power Covarrubias Urea nitrogen/Creatinine [Mass ratio] 13.6 mg/mg Normal [facility] Comment on above: Performed By: #### D ATLIPI, DATPSA, DATBMP #### [facility] [address] [address] [address] Power Covarrubias VLDL CALC 14.6 mg/dL Normal [facility] Comment on above: Performed By: #### D ATLIPI, DATPSA, DATBMP #### [facility] [address] [address] [address] Power Covarrubias Cardiovascular Lab Reporton 07-03-2020 Cardiovascular Lab Report [facility] Patient Name: [facility] MR #: [id number] Physician: Shiloh Hester Department of M.D. Medicine Service Date: 07/03/2020 Division of Birthdate: 1945 Cardiology Room #: Adult Cardiovascular Services [place] [address] Cardiovascular Laboratory Report FINAL IMPRESSIONS: 1. Rrxi-[id number] 3-vessel coronary artery disease. 2. Feqv-ed-rnegklrg left main coronary artery disease that appears [...] Follow up with Dr. Hester in the [facility] in the next 1 to 2 [...] to access the left radial artery. A 6-Portuguese glide sheath was inserted without difficulty. Resistance [...] Hester M.D. Date Trans: 07/03/2020 02:42 P/anibal [id number] cc: Neo Gould M.D. [address], [facility] [address] [place] [facility] Vital Signs Date Time Vital Sign Value Performing Clinician Facility 12-26-2024 15:52-0400 Body height 177.8 cm Guero Fink DPM Work Phone: [facility] 12-26-2024 15:52-0400 Body mass index (BMI) [Ratio] 32.28 kg/m2 Guero Fink DPM Work Phone: [facility] 12-26-2024 15:52-0400 Body weight 102.06 kg Guero Fink DPM Work Phone: [facility] 12-26-2024 15:52-0400 Respiratory rate 16 /min Guero Fink DPM Work Phone: [facility] 09-03-2024 16:01-0500 Body height 177.8 cm Tejas Katiana DO Work Phone: [facility] 09-03-2024 16:01-0500 Body mass index (BMI) [Ratio] 32.28 kg/m2 Tejas Katiana DO Work Phone: [facility] 09-03-2024 16:01-0500 Body weight 102.06 kg Tejas Katiana DO Work Phone: [facility] 09-03-2024 16:01-0500 Diastolic blood pressure 62 mm[Hg] Tejas Katiana DO Work Phone: [facility] [facility] 09-03-2024 16:01-0500 Heart rate 54 /min Tejas Katiana DO Work Phone: [facility] 09-03-2024 16:01-0500 SaO2% (BldA) [Mass fraction] 96 % Tejas Katiana DO Work Phone: [facility] 09-03-2024 16:01-0500 Systolic blood pressure 112 mm[Hg] Tejas Katiana DO Work Phone: [facility] 03-05-2024 16:01-0400 Body height 175.3 cm Pietro Torre MD Work Phone: [facility] 03-05-2024 16:01-0400 Body mass index (BMI) [Ratio] 41.64 kg/m2 Pietro Torre MD Work Phone: [facility] 03-05-2024 16:01-0400 Body weight 127.91 kg Pietro Torre MD Work Phone: [facility] 03-05-2024 16:01-0400 Diastolic blood pressure 58 mm[Hg] Pietro Torre MD Work Phone: [facility] 03-05-2024 16:01-0400 Heart rate 52 /min Pietro Torre MD Work Phone: [facility] 03-05-2024 16:01-0400 Systolic blood pressure 101 mm[Hg] Pietro Torre MD Work Phone: [facility] 03-28-2023 14:23-0400 Blood Pressure Location Zhang CHENL [facility] 03-28-2023 14:23-0400 Diastolic blood pressure 60 mm[Hg] Zhang NILL [facility] 03-28-2023 14:23-0400 Heart rate 60 /min Zhang NILL [facility] 03-28-2023 14:23-0400 Respiratory rate 16 /min Zhang CHENL [facility] 03-28-2023 14:23-0400 Systolic blood pressure 116 mm[Hg] Zhang NILL [facility] Encounters Encounter Date Encounter Type Care Provider Facility Start: 02-18-2025 End: 02-18-2025 ambulatory AB [facility] Start: 12-26-2024 End: 12-26-2024 Office outpatient visit 15 minutes Guero Fink DPM Work Phone: [facility] Comment on above: Pain due to onychomy cosis of toenails of both feet (Primary Dx); Venous insufficiency; Foot drop, left Start: 12-26-2024 End: 12-26-2024 ambulatory GUERO FINK Not Available Start: 12-26-2024 End: 12-26-2024 Bamboo flowsheet Guero Fink DPM Work Phone: [facility] Start: 12-26-2024 End: 12-26-2024 Bamboo flowsheet Guero Fink DPM Work Phone: [facility] Start: 12-16-2024 End: 12-16-2024 ambulatory HORTENCIA ROTH Not Available Start: 12-16-2024 End: 03-03-2025 Telephone encounter Asha Ly NP Work Phone: [facility] Start: 10-30-2024 End: 10-30-2024 ambulatory PADMA LAU Not Available Start: 10-30-2024 End: 10-30-2024 Office outpatient visit 25 minutes Padma Lau MANAGER OF PROJECT MANAGEMENT Work Phone: 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 Start: 10-30-2024 End: 10-30-2024 Bamboo flowsheet Padma Lau MANAGER OF PROJECT MANAGEMENT Work Phone: [facility] Start: 09-30-2024 End: 09-30-2024 Bamboo flowsheet Tejas Katiana DO [facility] Start: 09-30-2024 End: 09-30-2024 Bamboo flowsheet Tejas Katiana DO Work Phone: [facility] [place] [address] [facility] Start: 09-30-2024 End: 09-30-2024 ambulatory TEJAS KATIANA Not Available Start: 09-30-2024 End: 09-30-2024 Patient encounter procedure Tejas Katiana DO Work Phone: [facility] [place] [address] [facility] Comment on above: Peripheral neuropath y, idiopathic; Numbness and tingling Start: 09-24-2024 End: 09-26-2024 Telephone encounter Trva Kellogg CMA [facility] Start: 09-23-2024 End: 09-23-2024 ambulatory TEJAS KATIANA Not Available Start: 09-23-2024 End: 09-23-2024 Patient encounter procedure Tejas Katiana DO Work Phone: [facility] Comment on above: Peripheral neuropath y, idiopathic; Numbness and tingling Start: 09-19-2024 End: 09-19-2024 Clinisync Result Encounter Tejas Katiana DO Work Phone: [facility] External Department Unsolicited Start: 09-19-2024 End: 09-19-2024 Clinisync Result Encounter Tejas Saab DO Work Phone: [facility] Unsolicited Start: 09-03-2024 End: 09-03-2024 Office outpatient new 45 minutes Tejas Saab DO Work Phone: [facility] [place] [address] [facility] Comment on above: Peripheral neuropath y, idiopathic (Primary Dx); Numbness and tingling; Weakness; Low back pain at multiple sites; Neck pain Start: 09-03-2024 End: 09-03-2024 ambulatory TEJAS SAAB Not Available Start: 09-03-2024 End: 09-03-2024 Bamboo flowsheet Tejas Saab DO Work Phone: [facility] [address] Start: 09-03-2024 End: 09-03-2024 Bamboo flowsheet Tejas Saab DO Work Phone: [facility] [employer] [address] Start: 08-28-2024 End: 08-28-2024 ambulatory [facility] Start: 04-02-2024 End: 04-02-2024 ambulatory TINY TRAVIS Not Available Start: 03-19-2024 End: 03-19-2024 ambulatory Zhang DENISE Facility: [place] Start: 03-05-2024 End: 03-05-2024 ambulatory PIETRO TORRE [facility] Start: 03-05-2024 End: 03-05-2024 Office outpatient visit 15 minutes Pietro Torre MD Work Phone: [facility] Comment on above: Prostate cancer ([facility]) (Primary Dx) Start: 09-13-2023 ambulatory Ghislaine Morales Facility:[facility] Start: 06-15-2023 ambulatory Zhang DENISE Facility:[facility] [place] Start: 05-09-2023 ambulatory Zhang DENISE Facility :[facility] Start: 04-26-2023 End: 04-27-2023 ambulatory Zhang DENISE Facility:CD:[id number] Start: 03-28-2023 End: 03-29-2023 ambulatory Zhang DENISE Facility: [place] Start: 03-28-2023 End: 03-28-2023 Patient encounter procedure Zhang DENISE [facility] [place] Start: 03-01-2023 End: 03-02-2023 ambulatory NONE LISTED REQUEST Facility: Start: 12-10-2022 End: 12-11-[address] NEO GOULD . Facility: Start: 08-31-2022 End: 09-01-2022 ambulatory NONE LISTED REQUEST Facility: Start: 06-29-2022 End: 06-30-2022 ambulatory PEBBLES WOODARD Facility: Start: 04-09-2022 End: 04-10-2022 ambulatory NONE LISTED REQUEST Facility: Procedures Date Procedure Procedure Detail Performing Clinician Start: 10-30-2024 Arthrocentesis aspir &/inj major jt/bursa w/us Padma T Elvira MANAGER OF PROJECT MANAGEMENT Work Phone: Start: 09-30-2024 End: 09-30-2024 Needle [...] By: #### D BRE BALTAZARPSGuicho, DATBMP #### [facility] [address] [place] [address] Dr. Power Covarrubias Start: 08-31-2022 PSA screening PEBBLES B OES Comment on above: Performed By: #### D ATLIPI, DATPSA, DATBMP #### [facility] [address] [place], [place] [address] Dr. Power Covarrubias Start: 06-29-2022 PSA screening PEBBLES GORDON Comment on above: Performed By: #### P SAS #### [facility] [address] [place], [place] [address] Dr. Power Covarrubias Start: 10-04-2017 Colonoscopy Zhang NG Excision of lumbar intervertebral disc Zhang DENISE Comment on above: L5 Repair of hip Zhang DENISE Plan of Treatment Date Care Activity Detail Author Start: 04-15-2025 End: 04-15-2025 Patient encounter procedure 04/15/2025 12:30 PM EDT Office Visit [facility] [address] [place] [id number] Tejas Saab DO [address] [id number] [facility] [place] Start: 03-11-2025 End: 03-11-2025 Patient encounter procedure 03/11/2025 1:45 PM EDT Office Visit [facility] [address] [place] [id number] Pietro Torre MD [address] [place] [id number] [facility] Start: 03-06-2025 End: 03-06-2025 Patient encounter procedure 03/06/2025 3:30 PM EDT Procedure Visit [facility] [address] [facility] [address] [place] [address] Guero Fink DPM [address] [facility] [address] [place] [address] [facility] Start: 03-05-2025 End: 02-03-2026 Prostatic specific antigen, diagnostic Prostatic specific antigen, diagnostic Lab Routine Prostate cancer ([facility]) Expected: 03/05/2025 (Approximate), Expires: 02/03/2026 [facility] Comment on above: Expected: 03/05/2025 (Approximate), Expires: 02/03/2026 Start: 03-05-2025 Tobacco Screening Tobacco Screening [facility] Start: 12-26-2024 End: 12-26-2024 Patient encounter procedure 12/26/2024 3:50 PM EDT Procedure Visit [facility] 112 [facility] 120 [place] [address] Guero Fink, DPM [address] [address] Pain due to onychomycosis of toenails of both feet (Primary Dx); Venous insufficiency; Foot drop, left [facility] Comment on above: Pain due to onychomy cosis of toenails of both feet (Primary Dx); Venous insufficiency; Foot drop, left Start: 12-19-2024 End: 12-19-2024 Patient encounter procedure 12/19/2024 3:50 PM EST Procedure Visit [facility] [address] [facility] [address] [place] [address] Guero Fink DPM [address] [address] [facility] Start: 12-16-2024 End: 12-16-2024 Patient encounter procedure 12/16/2024 4:00 PM EST Office Visit [facility] [address] [place] [address] Hortencia Roth NP [address] [place], [place] [facility] Start: 11-25-2024 End: 11-25-2024 Patient encounter procedure [facility] [address] Start: 09-30-2024 End: 09-30-2024 Patient encounter procedure 09/30/2024 11:30 AM EST [facility] [place] [facility] [address] [place] [phone] Tejas Saab, DO [address] [place] [address] [facility] [place] [facility] Start: 09-23-2024 End: 09-23-2024 Patient encounter procedure 09/23/2024 4:00 PM EST [facility] [address] [place] [phone] Tejas Saab, DO [address] [place], [place] [id number] CARMELO [facility] Start: 09-03-2024 End: 09-03-2024 Patient encounter procedure 09/03/2024 4:00 PM EST [facility] [place] [address] [facility] [place] [address] Tejas Saab, DO [address] [place], [place] [id number] Arrived [facility] [place] [facility] Comment on above: Arrived Start: 09-03-2024 End: 09-03-2025 Cobalamin (Vitamin B12) [Mass/volume] in Serum or Plasma Vitamin B12 Lab Routine Peripheral neuropathy, idiopathic Numbness and tingling Expected: 09/03/2024 (Approximate), Expires: 09/03/2025 [facility] Comment on above: Expected: 09/03/2024 (Approximate), Expires: 09/03/2025 Start: 09-03-2024 End: 09-03-2025 EMG 2 Extremities EMG 2 Extremities Neurology Routine Peripheral neuropathy, idiopathic Numbness and tingling Expected: 09/03/2024 (Approximate), Expires: 09/03/2025 [facility] Comment on above: Expected: 09/03/2024 (Approximate), Expires: 09/03/2025 Start: 09-03-2024 End: 09-03-2025 Folate [Mass/volume] in Serum or Plasma Folate Lab Routine Peripheral neuropathy, idiopathic Numbness and tingling Expected: 09/03/2024 (Approximate), Expires: 09/03/2025 [facility] Comment on above: Expected: 09/03/2024 (Approximate), Expires: 09/03/2025 Start: 09-03-2024 End: 09-03-2025 NVC 11-12 Nerves NVC 11-12 Nerves Neurology Routine Peripheral neuropathy, idiopathic Numbness and tingling Expected: 09/03/2024 (Approximate), Expires: 09/03/2025 [facility] Comment on above: Expected: 09/03/2024 (Approximate), Expires: 09/03/2025 Start: 09-03-2024 End: 09-03-2025 NVC 9-10 Nerves NVC 9-10 Nerves Neurology Routine Peripheral neuropathy, idiopathic Numbness and tingling Expected: 09/03/2024 (Approximate), Expires: 09/03/2025 [facility] Comment on above: Expected: 09/03/2024 (Approximate), Expires: 09/03/2025 Start: 09-03-2024 End: 09-03-2025 Protein electrophoresis, serum Protein electrophoresis, serum Lab Routine Peripheral neuropathy, idiopathic Numbness and tingling Expected: 09/03/2024 (Approximate), Expires: 09/03/2025 [facility] Comment on above: Expected: 09/03/2024 (Approximate), Expires: 09/03/2025 Start: 09-03-2024 End: 09-03-2025 Thyrotropin [Units/volume] in Serum or Plasma TSH Lab Routine Peripheral neuropathy, idiopathic Numbness and tingling Expected: 09/03/2024 (Approximate), Expires: 09/03/2025 [facility] Work Phone: Comment on above: Expected: 09/03/2024 (Approximate), Expires: 09/03/2025 Start: 09-01-2024 End: 03-05-2025 Prostatic specific antigen, diagnostic Prostatic specific antigen, diagnostic Lab Routine Prostate cancer ([facility]) Expected: 09/01/2024 (Approximate), Expires: 03/05/2025 [facility] Work Phone: Comment on above: Expected: 09/01/2024 (Approximate), Expires: 03/05/2025 Start: 06-16-2024 Influenza vaccination [facility] Start: 03-07-2024 Adult BMI Screening Adult BMI Screen ing [facility] Start: 03-07-2024 Tobacco Screening Tobacco Screening [facility] Start: 05-27-2021 COVID-19 Vaccine (3 - Pfizer risk series) COVID-19 Vaccine (3 - Pfizer risk series) [facility] Start: 2011 Abdominal aortic aneurysm screening Abdominal Aortic Aneurysm (AAA) Screen [facility] Start: 2011 Fall Risk Screening Fall Risk Screen ing [facility] Start: 2011 Pneumococcal Vaccine : 65+ Years (1 of 1 - PCV) Pneumococcal Vaccine: 65+ Years (1 of 1 - PCV) [facility] Start: 1965 Administration of varicella zoster vaccine Zoster (Shingles) Vaccine (1 of 2) [facility] Start: 1965 DTaP,Tdap and Td Vaccines (1 - Tdap) DTaP,Tdap and Td Vaccines (1 - Tdap) [facility] Start: 1964 Adult BMI Follow Up Plan Adult BMI Follow Up Plan [facility] Start: 1958 Depression Screening Depression Scre ening [facility] Start: 1945 Medicare Annual Well ness Visit Medicare Annual Wellness Visit [facility] Immunizations Immunization Date Immunization Notes Care Provider Fa sg 04-29-2021 SARS-CoV-2 (COVID-19 ) mRNA BNT-162b2 ese DENISE [facility] 04-09-2021 SARS-CoV-2 (COVID-19 ) mRNA BNT-162b2 ese DENISE [facility] Payers Date Payer Category Payer Medicare (Managed Care) ЕЛЕНА QUIÑONES Member Subscriber Plan / Payer (Effective 2021-Present) Name: Oscar Cox Relation to Subscriber: Self Name: Oscar Cox Payer ID: Not on file Group ID: [id number] Type: Not on file Address: [address] [place] [id number] 2015 Medicare [facility]M [facility]ICARE [facility] MED[facility] ADVANTAGE [id number] 2015-Present [phone] [address] [place] [id number] 2015 Medicare HMO ANTH MEDICARE Member Subscriber Plan / Payer (Effective 2015-Present) Name: Oscar Cox Relation to Subscriber: Self Name: Oscar Cox Payer ID: [id number] (NAIC) Group ID: [id number] Type: Not on file Address: [address] [id number] 1959 Self-pay 1959 Unknown [id number] 1945 Unknown [id number] 2..[id number]. 2.593 1946 Unknown [id number] 2.16840.1.021331.3.579. 2.593 1946 Unknown [id number] 2.16840.1.212212.3.579. 2.1286 1946 Unknown [id number] 2.16840.1.168586.3.579. 2.727 1946 Unknown [id number] 2.16840.1.783758.3.579. 2.727 1946 Unknown [id number] 2.16840.1.889183.3.579. 2.727 1946 Unknown [id number] 2.16.840.1.034260.3.579. 2.727 1946 Unknown [id number] 2.16.840.1.428427.3.579. 2.727 1946 Unknown [id number] 2.16.840.1.920707.3.579. 2.1258 1946 Unknown [id number] 2.16.840.1.095409.3.579. 2.125 1946 Unknown [id number] 2.16.840.1.157010.3.579. 2.1258 1946 Unknown [id number] 2.16.840.1.218832.3.579. 2.1258 1946 Unknown [id number] 2.16.840.1.159449.3.579. 2.1258 1946 Unknown [id number] 2.16.840.1.149335.3.579. 2.1258 1946 Unknown [id number] 2.16.840.1.431792.3.579. 2.1258 1946 Unknown [id number] 2.16.840.1.716207.3.579. 2.1259 Unknown [id number] 2.16.840.1.218395.3.579. 2.593 Unknown [id number] 2.16840.1.486239.3.579. 2.593 Unknown [id number] 2.16840.1.272763.3.579. 2.593 Social History Date Type Detail Facility Start: 03-28-2023 Tobacco smoking status Never s moked tobacco (finding) [facility] [place] Tobacco smoking status Never [facility] Start: 03-29-2023 End: 12-16-2024 Sex Assigned At Male [facility] Start: 03-29-2023 End: 12-16-2024 Tobacco smoking status NHIS Ex-smoker [facility] Start: 12-21-1964 End: 12-21-1984 History of tobacco use Current smoker [facility] Start: 12-21-1964 End: 12-21-1984 History of tobacco use Cigarette Smoker [facility] Start: 03-29-2023 End: 12-16-2024 Tobacco use and exposure Smokeless tobacco non-user [facility] Start: 03-18-2024 End: 12-26-2024 Alcoholic beverage intake Ex-drinker (finding) [facility] Start: 03-29-2023 End: 12-16-2024 History of Social function [facility] Start: 03-30-2023 Alcohol Comment Caffeine 1-2 c ups per day [facility] Start: 1945 Sex assigned at Not on file P [facility] Start: 03-05-2024 Alcoholic beverage intake Current drinker of alcohol (finding) [facility] Start: 03-05-2024 Tobacco Comment quit 35 years ago for 20 years [facility] Start: 05-19-2015 Sex Male (finding) [facility] Functional Status Date Assessment Result Facility 03-28-2023 Functional Status N/A [facility] Clinical Notes 03-28-2023 to 02-18-2025 Guero Fink, BRENTON - 12/26/2024 3:50 PM EDTTelephone Encounter - Asha Ly NP - 12/16/2024 12:45 PM ESTTelephone Encounter - Asha Ly NP - 12/16/2024 12:45 PM EST Note Date & Type Note Facility 02-18-2025 Note [facility] Cardiology Clinic Note Chief Complaint: Patient here for 6 mo follow up. Patient states Dr. Gould took him off the Coreg due low blood pressure and low heart rate in January. Patient states he is feeling usual, tired and sleepy. Patient c/o of leg swelling. Patient states he is having injections in his neck in a few weeks here at [facility]. HPI: Oscar Cox is a 79 y.o. [...] new. Denies significant lightheadedness, dizziness, or syncope Update 02/18/2025. His Coreg was held due to significant hypotension and bradycardia. The patient feels lightheaded, weak, with a full sensation in the ears when his heart rate drops low. Apparently after stopping the Coreg this is not happened again. Denies blood in the urine or stools. Cardiology ROS: Review of Systems Cardiovascular: Positive for leg swelling. Skin: Positive for color change. Musculoskeletal: Positive for joint pain. All other systems reviewed and are negative. Past Medical History He has a past medical history of Atrial fibrillation ([facility]), Cardiomyopathy (CMS/HCC), History of cardioversion (09/14/2018), and [...] BY MOUTH TWICE DAILY, Disp: , Rfl: carvedilol (Coreg) 6.25 mg tablet, Take 6.25 mg by mouth with breakfast and with evening meal., Disp: , Rfl: DULoxetine (Cymbalta) [address] capsule, TAKE 1 CAPSULE BY MOUTH AT BEDTIME DAILY, Disp: , Rfl: furosemide (Lasix) 40 [...] Disp: , Rfl: Last Recorded Vitals BP 108/67 (BP Location: Right arm, Patient Position: Sitting) Pulse (!) 40 Ht 1.778 m (5' 10 ) SpO2 95% BMI 31.85 kg/m??? Physical Examination: GENERAL: alert and oriented x3, well developed, in no acute distress. HEAD: atraumatic, normocephalic. EYES: ABE, EOMI. NECK: trachea midline, no JVD present, no carotid bruits present. CARDIAC: S1, S2 present. RRR. No murmur, rubs, or gallops. RESPIRATORY: CTAB, no increased effort of breathing, no rales, rhonchi, or wheezing. ABD (more content not included)... [facility] 12-26-2024 History of Present illness Narrative Patient: Oscar Cox : 1945 PCP: Neo Gould MD SUBJECTIVE This is a 79 y.o. male that presents today with a CC of elongated, thick nails. Pt states nails have been elongated and thick for many years and cause pain with ambulation in shoegear. Pt has tried previous treatment with minimal relief. Pt presents today for nail care and treatment. \ Patient has history of left drop foot Pt also presents today for secondary complaint of swelling to b/l ankle regions and feet. They state that condition is starting to worsten have tried no treatments for the condition. States swelling worstens with prolonged standing activities. Allergies: No Known Allergies Past Medical History: Past Medical History: Diagnosis Date A-fib ([facility]) Adenocarcinoma ([facility]) CHF (congestive heart failure) ([facility]) 04/16/2013 echo EF 35% Chronic venous insufficiency Coronary artery disease ([facility]) Former smoker Hemorrhoids Hyperlipidemia ([facility]) Hypertension ([facility]) Morbid obesity with BMI of 40.0-44.9, adult ([facility]) OA (osteoarthritis) OM (onychomycosis) Prostate cancer ([facility]) Prostatitis Medications: Current Outpatient Medications: acetaminophen (Tylenol) 325 MG tablet, every 4 (four) hours., Disp: , Rfl: apixaban (Eliquis) 5 MG tablet, take 1 tablet by mouth twice a day Oral for 30, Disp: , Rfl: atorvastatin (Lipitor) 80 MG tablet, Oral for 90, Disp: , Rfl: baclofen (Lioresal) 5 MG tablet, every 12 (twelve) hours, Disp: , Rfl: DULoxetine (Cymbalta) [address] capsule, Take 20 mg by mouth Daily Do not crush or chew., Disp: , Rfl: furosemide (Lasix) 40 MG tablet, 1 (one) time each day at the same time., Disp: , Rfl: hydrALAZINE (Apresoline) 50 MG tablet, Take 50 mg by mouth in the morning and 50 mg in the evening., Disp: , Rfl: hyoscyamine (Anaspaz,Levsin) 0.125 MG tablet, 1 Orally BID prn, Disp: , Rfl: levothyroxine (Synthroid, Levoxyl) 50 MCG tablet, 50 mcg, Disp: , Rfl: oxybutynin (Ditropan) 2.5 mg split tablet, if needed, Disp: , Rfl: rOPINIRole (Requip) 1 MG tablet, Take 1 mg by mouth at bedtime, Disp: , Rfl: Social History: Social History Socioeconomic History Marital status: Spouse name: Not on file Number of children: Not on file Years of education: Not on file Highest education level: Not on file Occupational History Not on file Tobacco Use Smoking status: Former Current packs/day: 0.00 Types: Cigarettes Quit date: 1982 Years since quittin.2 Smokeless tobacco: Never Substance and Sexual Activity Alcohol use: Not Currently Comment: Caffeine 1-2 cups per day Drug use: Not on file Sexual activity: Not on file Other Topics Concern Not on file Social History Narrative Not on file Social Drivers of Health Financial Resource Strain: Not on file Food Insecurity: No Food Insecurity (03/05/2024) [facility] Hunger Screening Within the past 12 months we worried whether our food would run out before we got money to buy more.: Never True Within the past 12 months the food we bought just didn't last and we didn't have money to get more.: Never True Transportation Needs: Not on file Physical Activity: Not on file Stress: Not on file Social Connections: Not on file Intimate Partner Violence: Unknown (12/07/2023) Received from [facility], [facility] [place] Safety & Environment Fear of Current or Ex-Partner: Not on file Emotionally Abused: Not on file Physically Abused: Not on file Sexually Abused: Not on file Physically or Sexually Abused: Not on file Housing Stability: Not on file ROS: General: denies fever, chills, fatigue, malaise Gastrointestinal: denies abdominal pain, ulcers, or changes in appetite or bowel habits Musculoskeletal: denies arthritis, denies loss of strength, pain to hip, knees, back Cardiovascular: denies CP, palpitations, irregular rhythms OBJECTIVE LE EXAM: DERM: Elongated thick yellow crumbly nails digits 1 through 10. negative hair growth b/l feet. +2 pitting edema to bilateral ankles VASC: nonpalpable pedal pulses bilaterally NEURO: Gross sensation intact to bilateral feet ORTHO: Positive pain on palpation to toenails of the left 1,2,3,4,5 toes and right 1,2,3,4,5 toes +4/5 dorsiflexion left foot ASSESSMENT 1. Pain due to onychomycosis of toenails of both feet 2. Venous insufficiency 3. Foot drop, left PLAN Discussed proper foot care with patient today. Debride nails in length and thickness digits 1 through 10 Visit spent with patient education on condition and treatment of condition. Pt to continue with elevation of feet while resting or NWB. Discussed compression hose and the use of stockings for edema. Discussed condition in detail. Recommendation for qehl-cal-loujtye compression stockings at this time and may consider prescription stockings in the future. Guero Fink DPM documented in this encounter [facility] 12-16-2024 Telephone encounter Note Lab results from 09/20/24 reviewed. Patient started on Levothyroxine per PCP following this result. [facility] Work Phone: 12-16-2024 Miscellaneous Notes Lab results from 09/20/24 reviewed. Patient started on Levothyroxine per PCP following this result. documented in this encounter [facility] 10-30-2024 History of Present illness Narrative [...] WEEK LATER HE HAD BRUISING. WENT TO [facility] ER 07/26/24 XRAY [facility] 07/26/24 MRI [facility] 09/26/24 EMG [facility] 09/30/24 PHYSICAL THERAPY @ [facility] PAIN IN JOINT. DENIES RADIATION. +TYL OR IBU AND BACLOFEN. +LIDOCAINE ROLL ON. +N/T IN HANDS. +POPPING, GRINDING, CRACKING. LIMITED ROM. DOES NOT WAKE AT HS. RT HANDED. *ON ELIQUIS PAST MEDICAL HISTORY: Past Medical History: Diagnosis Date A-fib ([facility]) Adenocarcinoma ([facility]) CHF (congestive heart failure) ([facility]) 04/16/2013 echo EF 35% Chronic venous insufficiency Coronary artery disease ([facility]) Former smoker Hemorrhoids Hyperlipidemia ([facility]) Hypertension ([facility]) Morbid obesity with BMI of 40.0-44.9, adult ([facility]) OA (osteoarthritis) OM (onychomycosis) Prostate cancer ([facility]) Prostatitis PAST SURGICAL HISTORY: Past Surgical History: Procedure Laterality Date BUNIONECTOMY Bilateral CARDIAC CATHETERIZATION HAND SURGERY Left 3rd MC replacement LUMBAR SPINE SURGERY L5 NEUROMA SURGERY Bilateral B/L feet surgery neuroma PROSTATE BIOPSY 01/30/2015 TONSILLECTOMY TOTAL HIP ARTHROPLASTY Right 09/2014 [place] ALLERGIES: No Known Allergies HOME MEDICATIONS: Current [...] IMAGING: I reviewed xray and MRI from [facility] which showed chronic full thickness RCT with [...] symptoms develop for requiring urgent evaluation. Padma Lau, TYRONE-SIGNAL MAINTENANCE TECHNICIAN documented in this encounter [facility] 09-30-2024 History of Present illness Narrative Images from the original note were not included. Reason for Appointment: EMG Patient: Oscar Cox : 1945 EMG Computer: [employer] Referring Physician: Dr. Tejas Saab EMG: MAXWELL flying instructor: Justino Byers RT(R) Office Location: [place] Reason for EMG: c/o numbness/tingling in 1st [...] of the test. documented in this encounter [facility] 09-24-[address] Torre, [...] any further questions. [facility]24 Telephone encounter Note Hi Dr. Torre, [...] 3 years ago. Please advise, thank you [email or web address] Telephone encounter Note While lupron can (rarely) cause hypothyroidism and can cause profound weakness it would have occurred when he received the Lupron, not 3 years later. Because of that it does not appear to be related [facility] 09-24-2024 Telephone encounter Note Thank you Dr. Torre. Attempted to contact him a few times. His mailbox is full and unable to leave a voicemail. [facility] 09-24-2024 Telephone encounter Note Pt called back. Message given as stated below. Pt states understanding and will call back if he has any further questions. [facility] 09-23-2024 History of Present illness Narrative Images from the original note were not included. Reason for Appointment: EMG Patient: Oscar Cox : 1945 EMG Computer: [employer] Referring Physician: Dr. Tejas Saab EMG: BLE flying instructor: Sarita Bro CMA Office Location: [place] Reason for EMG: c/o numbness and tingling in the legs and feet. Balance difficulty. R>L. Hx of back surgery at L5, Hx of neuroma surgery, Hx of right hip replacement. No Hx of DM, takes Eliquis Comments: Procedure explained to the patient who expressed understanding. documented in this encounter [facility] 09-03-2024 History of Present illness Narrative [...] does not have a history of [place]. This started at least 3-4 years ago. [...] pain. Past Medical History: Diagnosis Date A-fib ([facility]) Adenocarcinoma ([facility]) CHF (congestive heart failure) ([facility]) 04/16/2013 echo EF 35% Chronic venous insufficiency Coronary artery disease ([facility]) Former smoker Hemorrhoids Hyperlipidemia ([facility]) Hypertension ([facility]) Morbid obesity with BMI of 40.0-44.9, adult ([facility]) OA (osteoarthritis) OM (onychomycosis) Prostate cancer ([facility]) Prostatitis Past Surgical History: Procedure Laterality Date BUNIONECTOMY Bilateral CARDIAC CATHETERIZATION HAND SURGERY Left 3rd MC replacement LUMBAR SPINE SURGERY L5 NEUROMA SURGERY Bilateral B/L feet surgery neuroma PROSTATE BIOPSY 01/30/2015 TONSILLECTOMY TOTAL HIP ARTHROPLASTY Right 09/2014 [place] Family History Adopted: Yes Social History Tobacco [...] clinic: 3 weeks. documented in this encounter [facility] 08-28-2024 Note [facility] Cardiology Clinic Note Chief Complaint: Patient [...] a past medical history of Atrial fibrillation ([facility]), Cardiomyopathy ([facility]), History of cardioversion (09/14/2018), and Hypertension. Surgical [...] report 07/03/2020 Cardiovascular (more content not included)... [facility] 03-05-2024 History of Present illness Narrative Images from the original note were not included. [address] [place] [address] [address] [facility] [id number] Patient: Oscar Cox Date of : 1945 Encounter Date: 03/05/2024 History of Present Illness: Chief Complaint: ANNUAL W / PSA The patient is a 78 y.o. male, an established patient, and is here for followup. He has a history of adenocarcinoma prostate T1c [place] 3 + 3 equal 6 in 3 [...] volume of 50 g. Repeat biopsy showed [place] 3+4=7 in 5 cores and 3+3=6 in [...] Date Angina pectoris (CMS-HCC) Arthritis Atrial fibrillation ([facility]) Benign prostatic hyperplasia Dental disease teeth in poor repair GALICIA (dyspnea on exertion) H/O degenerative disc disease Hematuria Hyperlipidemia Hypertension Irregular heart beat Peripheral vascular disease (CMS-HCC) Prostate cancer ([facility]) Rash on head-rash Visual impairment Past Surgical History: Procedure Laterality Date BACK SURGERY CARDIAC CATHETERIZATION EYE SURGERY 04/2020 Cyst in lower right eyelid HAND SURGERY Left joint replaced NEEDLE BIOPSY FUSION PROSTATE N/A 12/21/2020 Performed by Pasha Fernandes MD at [facility] SURGERY OTHER SURGICAL HISTORY finger joint repair [...] all orders for this visit: Prostate cancer ([facility]) Problem List Genitourinary Prostate cancer ([facility]) - Primary Overview T1c adenocarcinoma prostate [place] 3+3 equals 6 in 3 cores on [...] Plan pus/bx. Will need permission to hold diane 09/18/19 PUS/Bx, vol 21.3 gms 10/01/19: Alem [...] for your understanding. documented in this encounter [email or web address] 03-28-2023 Note Chief Complaint consultation for colonoscopy [...] cancer; referred for surveillance colonoscopy, last colonoscopy 2017 with removal of small cecal tubular adenoma; [...] informed consent obtained. 2. Chronic anticoagulation (Z79.01: skilled nursing (current) use of anticoagulants) hold Eliquis 2 [...] SARS-CoV-2 (COVID-19) mRNA BNT-162b2 vax 04/09/2021 Recorded [facility] Comment on above: Result Comment: Elec tronically Signed By: HOWIE LOPEZ, Zhang Yan\Date and Time Signed: 03/28/23 20:17 EDT Evaluation + Plan note No data available for this section [facility] [place] Evaluation note Diagnosis Peripheral neuropathy, idiopathic- Primary [...] [facility] Prostate cancer ([facility] Primary Malignant neoplasm of prostate [facility] Pain due to onychomycosis of toenails of both feet- Primary Venous insufficiency Unspecified venous (peripheral) insufficiency Foot drop, left Other acquired deformity of ankle and foot documented in this encounter [facility] Discharge instructions No data available for this section [facility] [place] InstructionsNot on filedocumented in this encounter [facility] filedocumented in this encounter [facility] No data available for this section [facility] [place] Summary Purpose Family History No Family History [...] DATE CREATED AUTHOR 07/07/2020 [facility] DATE CREATED AUTHOR AUTHOR'S ORGANIZ ATION 03/02/2023 [facility] [place] [facility] DATE CREATED AUTHOR AUTHOR'S ORGANIZ ATION 03/08/2024 [facility] DATE CREATED AUTHOR AUTHOR'S ORGANIZ ATION 03/12/2024 [facility] DATE CREATED AUTHOR AUTHOR'S ORGANIZ ATION 12/29/2024 [facility] EPIC DATE CREATED AUTHOR AUTHOR'S ORGANIZ ATION 02/21/2025 [facility] Patient Care team informatio n (unrecognized section and content) Clipper Machine Operator Relationship Specialty Start Date End Date Neo Gould MD [address] [phone] PCP - General Family Medicine 02/24/23 Clipper Machine Operator Relationship Specialty Start Date End Date Neo Gould MD [address] [phone] PCP - General Family Medicine 02/24/23 Clipper Machine Operator Relationship Specialty Start Date End Date Neo Gould MD [address] [place] [address] PCP - General Family Medicine 02/24/23 Clipper Machine Operator Relationship Specialty Start Date End Date Neo Gould MD [address] [phone] PCP - General Family Medicine 02/24/23 Clipper Machine Operator Relationship Specialty Start Date End Date Neo Gould MD [address] [place] [address] PCP - General Family Medicine 02/24/23 Tejas Saab DO [address] [place] [address] Referring Physician Neurology 09/30/24 Clipper Machine Operator Relationship Specialty Start Date End Date Neo Gould MD [facility] [place] [address] PCP - General Family Medicine 02/24/23 Tejas Saab DO [address] [address] Referring Physician Neurology 09/30/24 Clipper Machine Operator Relationship Specialty Start Date End Date Neo Gould MD [address] [place] [phone] PCP - General Family Medicine 02/24/23 Tejas Saab DO [address] [place] [address] Referring Physician Neurology 09/30/24 Clipper Machine Operator Relationship Specialty [place] [address] [place] [address] PCP - General Family Medicine 01/10/19 Clipper Machine Operator Relationship Specialty Start Date End Date Neo Gould MD PCP - General Family Medicine 01/10/19 Clipper Machine Operator Relationship Specialty Start Date End Date Neo Gould MD [address] [place] [address] PCP - General Family Medicine 02/24/23 Tejas Saab DO [address] [place], [place] [phone] Referring Physician Neurology 09/30/24 Reason for Visit (unrecogniz ed section and content) Reason Comments CIDP Specialty Diagnoses / Procedures Referred By Contac t Referred To Contact Neurology Diagnoses ? Chronic inflammatory demyelinating polyneuropathy, labs @ [facility] , no other testing, ref by Dr Gould Procedures NEURO NEW PATIENT Neo Gould MD [address] [place] [address] Phone: tel: fax: Tejas Saab DO [address] [place] [address] Phone: tel: fax: Referral ID Status Reason Start Date Expiration Date V isits Requested Visits Authorized [id number] Closed Consult and Treat 08/05/2024 02/01/2025 1 1 Reason Comments Pain Reason Comments Follow-up ANNUAL W / PSA Reason Comments Toenail Care Non dm nail care FOR RECORDS PERTAINING TO PATIENTS WHO ARE [...] BE BASED ON THE PRIMARY CLINICAL RECORDS. [employer] provides no warranty or guarantee of the accuracy or completeness of information in this document.
--- OUTSIDE RECORDS SUMMARY | 2025-03-05 04:07 | XMS_ITS | Encounter Summary ---
Author Organization [facility] Address [address] [place] [address] Care Team Providers Care Exposure Machine Operator Name Role Phone Javier Gould MD Primary Care Provider [phone] Melanie Noel DO Unavailable Encounter Details Date Type Department Care Team (Late Contact Info) Description 03/30/2023 Abstract [facility] [address] [facility] [address] [place] [address] Yazmin Lo NP Social History Tobacco Use Types Packs/Day Years [...] Department Care Team (Late Contact Info) Description 03/06/2025 3:30 PM EDT Procedure Visit [facility] [address] [facility] [address] [place] [phone] Guero Fink DPM [address] [facility] [address] [place] [address] 04/15/2025 12:30 PM EDT Office Visit [facility] [address] [place] [address] Melanie Noel DO [address] [place] [address] documented as of this encounter Visit Diagnoses Not on filedocumented in this encounter Care Teams Exposure Machine Operator Relationship Specialty Start Date End Date Javier Gould MD PCP - General Family Medicine 02/24/23 Melanie Noel DO [address] [place] [address] Referring Physician Neurology 09/30/24 documented as of this encounter
--- OUTSIDE RECORDS SUMMARY | 2025-03-05 04:07 | XMS_ITS | Encounter Summary ---
Author Organization [employer] s tem Address [id number] [address] [place] [address] Care Team Providers Care Electric Shaver Mechanic Name Role Phone Javier Gould MD Primary Care Provider [phone] Encounter Details Date Type Department Care Team ([facility] Contact Info) Description 08/28/2020 Orders Only [facility] [address] [place] [phone] Ani Toribio [facility] [address] [place] [address] Social History Tobacco Use Types Packs/Day Years [...] PM EST documented as of this encounter Plan of Treatment Upcoming Encounters Date Type Department Care Team ([facility] Contact Info) Description 03/11/2025 1:45 PM EDT Office Visit [facility] [address] [place] [address] [address] [facility] [place] [phone] Pitero Torre MD [address] [place] [address] documented as of this encounter Visit Diagnoses Not on filedocumented in this encounter Care Teams Electric Shaver Mechanic Relationship Specialty Start Date End Date Javier Gould MD PCP - General Family Medicine 01/10/19 documented as of this encounter
--- OUTSIDE RECORDS SUMMARY | 2025-03-05 04:07 | XMS_ITS | Patient Health Record ---
Author Organization [facility] Address [address] [place] [address] Support Name Relationship Address Phone Oscar Cox Guarantor Unknown [phone] Reason For Referral No Information Problems Problem Type SNOMED Code ICD Code Onset Dates Problem Status W/U Status Risk Notes Problem Contusion of knee (55297832) Contusion of knee, left (S80.02XA) Active confirmed Problem Fall () Fall (W19.XXXA) Active confirmed Problem Knee joint effusion (586013550) Effusion of bursa of knee, left (M25.462) Active confirmed Plan Of Treatment No Information Insurance Providers Payer Name Payer Address Payer Phone Subscriber Number Group Number Insured Name Patient Relationship to Insured Coverage Start Date Coverage End Date Medicare [employer]age [address] [place] [phone] [id number] [facility] Self - patient is the insured
--- OUTSIDE RECORDS SUMMARY | 2025-03-05 04:07 | XMS_ITS | Patient Health Record ---
Author Organization [facility] in [place] Address [address] [place] [address] Care Team Providers Care Investigator Fraud Name Role Phone Zackery Gould Primary Care Provider [phone] NEO GOULD Unavailable [phone] Allergies No Known Allergies Results Component Value Reference Range Notes BNP Reviewed date:02/06/2025 06:41:27 PM Interpretation: Performing Lab: Notes/Report: [facility] , NT Pro B Type Natriuretic Pept 1072.0 <=1800.0 pg/mL Performing Lab: see note ML - [facility] LB BNP Reviewed date:07/03/2024 05:05:59 PM Interpretation: Performing Lab: Notes/Report: [facility] , NT Pro B Type Natriuretic Pept 2258.0 <=1800.0 pg/mL RESULTS CALLED TO SARAH HUDSON Performing Lab: see note - [facility] LB CBC AUTO DIFF Reviewed date:07/03/2024 05:05:59 PM Interpretation: Performing Lab: Notes/Report: [facility] , White Blood Count 5.2 4.0-11.0 10 3/uL Red Blood Count 3.52 4.70-6.10 10 6/uL Hemoglobin 10.6 14.0-18.0 g/dL Hematocrit 34.3 42.0-54.0 % Mean Corpuscular Volume 97.4 80.0-94.0 fL Mean Corpuscular Hemoglobin 30.1 25.9-34.0 pg Mean Corpuscular HGB Conc 30.9 29.9-35.2 g/dL Red Cell Distribution Width 14.3 11.0-15.0 % Platelet Count 170 150-450 10 3/uL Mean Platelet Volume 10.3 9.5-13.5 fL Neutrophils Percent Auto 67.8 43.0-75.0 % Lymphocytes Percent Auto 19.0 20.5-60.0 % Monocytes Percent Auto 9.5 1.7-12.0 % Eosinophils Percent Auto 2.9 0.9-7.0 % Basophils Percent Auto 0.6 0.2-2.0 % Immature Granulocytes Pct Auto 0.2 0.0-0.5 % Neutrophils Absolute Auto 3.5 1.4-6.5 10 3/uL Lymphocytes Absolute Auto 1.0 1.2-3.8 10 3/uL Monocytes Absolute Auto 0.5 0.3-0.8 10 3/uL Eosinophils Absolute Auto 0.2 0.0-0.7 10 3/uL Basophils Absolute Auto 0.0 0.0-0.1 10 3/uL Immature Granulocytes Abs Auto 0.01 0.00-0.03 10 3/uL Performing Lab: see note ML - [facility] LB Protein Electro.,S Reviewed date:09/23/2024 08:07:21 PM Interpretation: Performing Lab: Notes/Report: [facility] , Protein, Total 6.3 6.0-8.5 g/dL Albumin 3.0 2.9-4.4 g/dL Nlzys-9-Vvaaqamt 0.4 0.0-0.4 g/dL Axntv-1-Wxgiyhtn 0.9 0.4-1.0 g/dL Beta Globulin 1.1 0.7-1.3 g/dL Gamma Globulin 0.9 0.4-1.8 g/dL M-Marlo Not Observed Not Observed g/dL Globulin, Total 3.3 2.2-3.9 g/dL A/G Ratio 0.9 0.7-1.7 Please note: Comment . Protein electrophoresis scan will follow via computer, mail, or volunteer services coordinator delivery. Performed at: - [facility] [id number] Contract Negotiation Manager: Pavel Muniz PhD, Phone: [phone] Performing Lab: see note - [facility] LB MR shoulder RT wo con Reviewed date:09/29/2024 05:17:45 PM Interpretation: Performing Lab: Notes/Report: Source Facility: [facility]-[address] [place] [address] [address] Magnetic Resonance Report Signed Patient: OSCAR COX MR#: [id number] : 1945 Acct:[id number] Age/Sex: 79 / M ADM Date: 09/26/24 Loc: MRI Attending Dr: Neo Gould M.D. Ordering Physician: Neo Gould M.D. Date of Service: 09/26/24 Procedure(s): MR shoulder RT wo con Accession Number(s): [id number] cc: Neo Gould M.D. [place] [address] Patient Name: OSCAR COX MRN: [id number] date: 1945 Sex: M Assigned Patient Location: MRI Current Patient Location: MRI Accession/Order Number: [id number] Exam Date: 09/26/2024 14:10 Report Date: 09/27/2024 12:59 At the request of: NEO GOULD Procedure: MR shoulder RT wo con EXAM: MR shoulder RT wo con HISTORY: Right Shoulder Pain COMPARISON: 07/26/2024 TECHNIQUE: MRI images obtained with multiple sequences. MRI of the right shoulder without contrast. Sequences obtained by standard department protocol. FINDINGS: Motion artifact limits the examination. High-riding humeral head. Full-thickness focal tear of the supraspinatus/infraspinatus tendon. Retraction measuring approximately 4.1 cm. Suspected high-grade tearing of the subscapularis tendon. No definitive full-thickness chondral loss of the glenohumeral joint. Moderate degeneration at the acromioclavicular joint with associated joint effusion. Intra-articular body of the posterior joint space measuring 1 cm in diameter (axial PD fat-sat image 10). MR/MR shoulder RT wo con IMPRESSION: Motion artifact limits examination. For a fully diagnostic exam, repeat exam should be obtained. 1. Full-thickness focal tear of the supraspinatus/infraspinatus tendon. Retraction measuring approximately 4.1 cm. 2. Suspected high-grade tearing of the subscapularis tendon. 3. Moderate degeneration at the acromioclavicular joint with associated joint effusion. 4. Intra-articular body of the posterior joint space measuring 1 cm in diameter (axial PD fat-sat image 10). Electronically authenticated by: HUNTER LANCASTER Date: 09/27/2024 12:59 Dictated By: Hunter Lancaster M.D. Signed By: 09/27/24 1302 DD/ 1250 TD/TT: Cargo Service Agent: [place] [address] Magnetic Resonance Report Signed Patient: OSCAR COX MR#: [id number] : 1945 Acct:[id number] Age/Sex: 79 / M ADM Date: 09/26/24 Loc: MRI Attending Dr: Ramos Gould M.D. Ordering Physician: Neo Gould M.D. Date of Service: 09/26/24 Procedure(s): MR shoulder RT wo con Accession Number(s): [id number] cc: Neo Gould M.D. [place] [address] Patient Name: OSCAR COX MRN: [id number] date: 1945 Sex: M Assigned Patient Location: MRI Current Patient Location: MRI Accession/Order Numb er: [id number] Exam Date: 14:10 Report Date: 09/27/2024 12:59 At the request of: NEO GOULD Procedure: MR should er RT wo con EXAM: MR shoulder RT wo con HISTORY: Right Shoul dylon Pain COMPARISON: 07/26/2024 TECHNIQUE: MRI image s obtained with multiple sequences. MRI of the right shoulder without contrast. Sequences obtained by standard department protocol. FINDINGS: Motion artifact limi ts the examination. High-riding humeral head. Full-thickness focal tear of the supraspinatus/infraspina tus tendon. Retraction measuring approximat cale 4.1 cm. Suspected high-grade tearing of the subscapularis tendon. No definitive full-thickness chondral loss of the glenohumeral joint. Moderate degeneratio n at the acromioclavicular joint with associated joint effusion. Intra-articular body of the posterior joint space measuring 1 cm in diameter (axial PD fat-sat im age 11). M R/MR shoulder RT wo con IMPRESSION: Motion artifact limits examination. For a fully diagnostic exam, repeat exam should b e obtained. 1. Full-thickness fo dalton tear of the supraspinatus/infraspina tus tendon. Retraction measuring approximately 4.1 cm. 2. Suspected high-gr chay tearing of the subscapularis tendon. 3. Moderate degenera tion at the acromioclavicular joint with associated joint effusion. 4. Intra-articular b gill of the posterior joint space measuring 1 cm in diameter (axial PD fat-sat im age 10). Electronically authenticated by: HUNTER LANCASTER Date: 09/27/2024 12:59 Dictated By: Emeterio Lancaster M.D. Signed By: 09/27/24 1302 DD/ 1259 TD/TT: Cargo Service Agent: CBC AUTO DIFF Reviewed date:02/06/2025 06:41:27 PM Interpretation: Performing Lab: Notes/Report: [facility] , White Blood Count 3.9 4.0-11.0 10 3/uL Red Blood Count 3.80 4.70-6.10 10 6/uL Hemoglobin 11.5 14.0-18.0 g/dL Hematocrit 35.5 42.0-54.0 % Mean Corpuscular Volume 93.4 80.0-94.0 fL Mean Corpuscular Hemoglobin 30.3 25.9-34.0 pg Mean Corpuscular HGB Conc 32.4 29.9-35.2 g/dL Red Cell Distribution Width 16.7 11.0-15.0 % Platelet Count 138 150-450 10 3/uL Mean Platelet Volume 11.8 9.5-13.5 fL Neutrophils Percent Auto 61.5 43.0-75.0 % Lymphocytes Percent Auto 23.7 20.5-60.0 % Monocytes Percent Auto 11.7 1.7-12.0 % Eosinophils Percent Auto 2.3 0.9-7.0 % Basophils Percent Auto 0.5 0.2-2.0 % Immature Granulocytes Pct Auto 0.3 0.0-0.5 % Neutrophils Absolute Auto 2.4 1.4-6.5 10 3/uL Lymphocytes Absolute Auto 0.9 1.2-3.8 10 3/uL Monocytes Absolute Auto 0.5 0.3-0.8 10 3/uL Eosinophils Absolute Auto 0.1 0.0-0.7 10 3/uL Basophils Absolute Auto 0.0 0.0-0.1 10 3/uL Immature Granulocytes Abs Auto 0.01 0.00-0.03 10 3/uL Performing Lab: see note ML - [facility] LB TSH Reviewed date:02/06/2025 06:41:27 PM Interpretation: Performing Lab: Notes/Report: [facility] , Thyroid Stimulating Hormone 2.881 0.358-3.740 uIU/mL Performing Lab: see note ML - [facility] LB T4 Reviewed date:02/06/2025 06:41:27 PM Interpretation: Performing Lab: Notes/Report: [facility] , T4 Thyroxine 9.80 4.50-12.10 ug/dL Performing Lab: see note ML - [facility] LB PSA SCREENING Reviewed date:02/06/2025 06:41:27 PM Interpretation: Performing Lab: Notes/Report: [facility] , Prostate Specific Antigen Scrn <0.13 <=4.00 ng/mL Performing Lab: see note ML - [facility] LB PROF 14(COMP METB) Reviewed date:02/06/2025 06:41:27 PM Interpretation: Performing Lab: Notes/Report: [facility] , Sodium 143 136-145 mmol/L Potassium 3.9 3.5-5.1 mmol/L Chloride 105 98-107 mmol/L Carbon Dioxide 31.0 21.0-32.0 mmol/L Anion Gap 10.9 Glucose 74 74-106 mg/dL Blood Urea Nitrogen 22.0 7.0-18.0 mg/dL Creatinine 1.18 0.70-1.30 mg/dL Estimated GFR ( Anjali >60 >=60 mL/min/1.73m 2 Estimated GFR (Non- Jennifer 60 >=60 mL/min/1.73m 2 BUN Creatinine Ratio 18.6 Calcium 9.8 8.5-10.1 mg/dL Bilirubin Total 0.7 0.2-1.0 mg/dL Aspartate Amino Transferase 31 15-37 U/L Alanine Aminotransferase 37 16-63 U/L Alkaline Phosphatase 136 46-116 U/L Total Protein 6.6 6.4-8.2 g/dL Albumin Level 3.3 3.4-5.0 g/dL Globulin 3.3 Albumin Globulin Ratio 1.0 Performing Lab: see note ML - [facility] LB LIPID PROFILE Reviewed date:02/06/2025 06:41:27 PM Interpretation: Performing Lab: Notes/Report: [facility] , Triglycerides 69 <=150 mg/dL Cholesterol 128 <=200 mg/dL HDL Cholesterol 65 40-60 mg/dL > or =60 mg/dl - LOW CARDIOVASCULAR RISK <40 mg/dl - HIGH CARDIOVASCULAR RISK LDL Cholesterol Calculated 50.0 <100 mg/dl OPTIMAL 100-129 mg/dl NEAR OR ABOVE OPTIMAL 130-159 mg/dl BORDERLINE HIGH 160-189 mg/dl HIGH >190 mg/dl VERY HIGH VLDL CHOLESTEROL 13.8 Chol HDL Ratio 2.0 3.3 - 4.4 LOW RISK 4.4 - 7.1 AVERAGE RISK 7.1 - 11.0 MODERATE RISK >11.0 HIGH RISK Performing Lab: see note ML - [facility] FREE T3 Reviewed date:02/06/2025 06:41:27 PM Interpretation: Performing Lab: Notes/Report: [facility] , Free T3 2.63 2.18-3.98 pg/mL Performing Lab: see note ML - [facility] LB TSH Reviewed date:12/26/2024 06:43:01 PM Interpretation: Performing Lab: Notes/Report: [facility] , Thyroid Stimulating Hormone 2.814 0.358-3.740 uIU/mL Performing Lab: see note ML - [facility] LB T4 Reviewed date:12/26/2024 06:43:01 PM Interpretation: Performing Lab: Notes/Report: [facility] , T4 Thyroxine 11.00 4.50-12.10 ug/dL Performing Lab: see note ML - [facility] LB FREE T3 Reviewed date:12/26/2024 06:43:01 PM Interpretation: Performing Lab: Notes/Report: [facility] , Free T3 2.61 2.18-3.98 pg/mL Performing Lab: see note ML - [facility] LB Vitamin B12 Reviewed date:09/22/2024 06:05:27 PM Interpretation: Performing Lab: Notes/Report: [facility] , Vitamin B12 686 570-0022 pg/mL Performed at: - [facility] [address] [id number] Contract Negotiation Manager: Pavel Muniz PhD, Phone: [phone] Performing Lab: see note - [facility] LB TSH Reviewed date:09/19/2024 07:11:01 PM Interpretation: Performing Lab: Notes/Report: [facility] , Thyroid Stimulating Hormone 4.817 0.358-3.740 uIU/mL Performing Lab: see note ML - [facility] LB FOLATE Reviewed date:09/19/2024 07:11:01 PM Interpretation: Performing Lab: Notes/Report: [facility] , Folate 21.90 8.60-58.90 ng/mL Performing Lab: see note ML - [facility] LB CA echo limited Reviewed date:08/05/2024 08:04:35 PM Interpretation: Performing Lab: Notes/Report: Source Facility: [place] [address] Cardiology Report Signed Patient: OSCAR COX MR#: [id number] : 1945 Acct:[id number] Age/Sex: 79 / M ADM Date: 08/02/24 Loc: CARD Attending Dr: Neo Gould M.D. Ordering Physician: Neo Gould M.D. Date of Service: 08/02/24 Procedure(s): CA echo limited Accession Number(s): [id number] cc: Neo Gould M.D. Patient Name: OSCAR COX MR#: [id number] : 1945 Exam Date: 08/02/2024 Ordering Doctor: DR Neo Gould . ECHOCARDIOGRAM REPORT PROCEDURE: CA ECHO LIMITED INDICATIONS: Bradycardia, atrial fibrillation COMPARISON: None. DESCRIPTION: Limited ECHOCARDIOGRAM Real-time transthoracic echocardiography with 2D and M-mode performed. QUALITY: Technically difficult due to patient's condition. Limited echocardiogram per physician order. LEFT VENTRICLE: Normal chamber size. Mild to moderate concentric left ventricular hypertrophy. Normal LV systolic function without wall motion abnormalities, EF 60% LV EF: DIASTOLIC: ATRIAL SEPTUM: LEFT ATRIUM: Moderate dilatation. RIGHT ATRIUM: Normal chamber size. RIGHT VENTRICLE: TRICUSPID VALVE: Normal mobility and thickness. MITRAL VALVE: Mildly thickened with normal mobility. Mild mitral annular calcification. AORTIC VALVE: Normal trileaflet appearance. No visible sclerosis. Normal leaflet mobility. AORTIC ROOT: Normal diameter and appearance. PULMONIC VALVE: Normal thickness and mobility. PERICARDIUM: No evidence of pericardial effusion. IVC: PLEURA: CONCLUSION: Mild to moderate concentric left ventricle hypertrophy Normal LV systolic function, no wall motion abnormalities, EF 60%. Moderate left atrial dilatation Mild mitral annulus calcification Adult Echocardiography Procedure Report Left Ventricle LVEDD (3.7 - 5.6 cm): 4.27 cm LVESD (2.2 - 4.0 cm): 2.80 cm LVIVS thickness (0.6 - 1.2 cm): 1.31 cm LVPW thickness (0.5 - 1.0 cm): 1.46 cm e': E - e': LVOT Max Gradient: LVOT Area (cm2): Peak Velocity (LVOT): Mean Velocity (LVOT): LVOT Diameter 1.80 cm Left Ventricular Ejection Fraction: Left Atrium LA Volume Index (2D A2C): 45.43 ml/m2 Left Atrium Systolic Dimension: 5.77 cm Mitral Valve MV E to A Ratio: MV Max Gradient: MV Mean Gradient: Mitral Valve A-Wave Peak Velocity: Mitral Valve E-Wave Peak Velocity: Cardiovascular Orifice Area: Right Ventricle RV Internal Diastolic Dimension: Aorta AO Root Diam: 3.81 cm Ascending Ao Diam: Aortic Valve AoV Area (Peak Deon): AoV Area (VTI): Deceleration Phillips: Pressure Half-Time: Peak Velocity(Antegrade Flow): Peak Gradient(Antegrade Flow): Mean Velocity(Antegrade Flow): Mean Gradient(Antegrade Flow): Velocity Time Integral: Tricuspid Valve Peak Velocity (Regurgitant Flow): Peak Velocity: Pulmonic Valve Mean Gradient: Mean Velocity: Peak Velocity: Peak Gradient: Right Atrium Right Atrium Systolic Pressure: Dictated by: Kaitlin Samuels MD on 08/05/2024 at 15:32 Approved by: Kaitlin Samuels MD on 08/05/2024 at 16:33 Dictated By: Kaitlin Samuels M.D. Signed By: 08/05/24 1634 DD/ 1534 TD/TT: Cargo Service Agent: [place] [address] Cardiology Report Signed Patient: OSCAR COX MR#: [id number] : 1945 Acct:[id number] Age/Sex: 79 / M ADM Date: 08/02/24 Loc: CARD Attending Dr: Ramos Gould M.D. Ordering Physician: Neo Gould M.D. Date of Service: 08/02/24 Procedure(s): CA ech o limited Accession Number(s): [id number] cc: Neo Gould M.D. Patient Name: OSCAR COX MR#: [id number] : 1945 Exam Date: 08/02/2024 Ordering Doctor: DR Neo Gould . ECHOCARDIOGRAM REPORT PROCEDURE: CA ECHO LIMITED INDICATIONS: Bradycardia, atrial fibrillation COMPARISON: None. DESCRIPTION: Limited ECHOCARDIOGRAM Real-time transthoracic echocardiography wit h 2D and M-mode performed. QUALITY: Technicall y difficult due to patient's condition. Limited echocardiogram per physician order. LEFT VENTRICLE: Norm al chamber size. Mild to moderate concentric left ventricular hypertro phy. Normal LV systolic function without wall motion abnormalities, EF 60% LV EF: DIASTOLIC: ATRIAL SEPTUM: LEFT ATRIUM: Moderat e dilatation. RIGHT ATRIUM: Normal chamber size. RIGHT VENTRICLE: TRICUSPID VALVE: Nor mal mobility and thickness. MITRAL VALVE: Mildly thickened with normal mobility. Mild mitral annular calcification. AORTIC VALVE: Normal trileaflet appearance. No visible sclerosis. Normal leaflet mobility. AORTIC ROOT: Normal diameter and appearance. PULMONIC VALVE: Nor mal thickness and mobility. PERICARDIUM: No evid ence of pericardial effusion. IVC: PLEURA: CONCLUSION: Mild to moderate concentric left ventricle hypertrophy Normal LV systolic function, no wall motion abnormalities, EF 60%. Moderate left atrial dilatation Mild mitral annulus calcification Adult Echocardiograp hy Procedure Report Left Ventricle LVEDD (3.7 - 5.6 cm) : 4.27 cm LVESD (2.2 - 4.0 cm) : 2.80 cm LVIVS thickness (0.6 - 1.2 cm): 1.31 cm LVPW thickness (0.5 - 1.0 cm): 1.46 cm e': E - e': LVOT Max Gradient: LVOT Area (cm2): Peak Velocity (LVOT): Mean Velocity (LVOT): LVOT Diameter 1.80 cm Left Ventricular Ejection Fraction: Left Atrium LA Volume Index (2D A2C): 45.43 ml/m2 Left Atrium Systolic Dimension: 5.77 cm Mitral Valve MV E to A Ratio: MV Max Gradient: MV Mean Gradient: Mitral Valve A-Wave Peak Velocity: Mitral Valve E-Wave Peak Velocity: Cardiovascular Orifi ce Area: Right Ventricle RV Internal Diastoli c Dimension: Aorta AO Root Diam: 3.81 cm Ascending Ao Diam: Aortic Valve AoV Area (Peak Deon): AoV Area (VTI): Deceleration Phillips: Pressure Half-Time: Peak Velocity(Antegr chay Flow): Peak Gradient(Antegr chay Flow): Mean Velocity(Antegr chay Flow): Mean Gradient(Antegr chay Flow): Velocity Time Integral: Tricuspid Valve Peak Velocity (Regurgitant Flow): Peak Velocity: Pulmonic Valve Mean Gradient: Mean Velocity: Peak Velocity: Peak Gradient: Right Atrium Right Atrium Systoli c Pressure: Dictated by: Kaitlin Samuels MD on 08/05/2024 at 15:32 Approved by: Kaitlin Samuels MD on 08/05/2024 at 16:33 Dictated By: Kaitlin Samuels M.D. Signed By: 08/05/24 1634 DD/ 33 TD/TT: Cargo Service Agent: XR shoulder RT min 2V Reviewed date:07/27/2024 03:20:16 PM Interpretation: Performing Lab: Notes/Report: Source Facility: [place] [address] XRay Report Signed Patient: OSCAR COX MR#: [id number] : 1945 Acct:[id number] Age/Sex: 79 / M ADM Date: 07/26/24 Loc: ER Attending Dr: Ordering Physician: Jonnathan Jacobson Date of Service: 07/26/24 Procedure(s): XR shoulder RT min 2V Accession Number(s): [id number] cc: Neo Gould M.D.; Jonnathan Jacobson [address] [place] [id number] Patient Name: OSCAR COX MRN: [id number] date: 1945 Sex: M Assigned Patient Location: ED.MAIN Current Patient Location: ED.MAIN Accession/Order Number: [id number] Exam Date: 07/26/2024 15:50 Report Date: 07/26/2024 16:19 At the request of: JONNATHAN JACOBSON Procedure: XR shoulder RT min 2V EXAM: XR shoulder RT min 2V HISTORY: pain COMPARISON: None. TECHNIQUE: 3 views of the right shoulder. FINDINGS: Bones: No acute fracture or aggressive appearing bony lesion. Joints: Normal alignment. 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 Heterotopic calcifications are noted at the acromioclavicular joint. 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 Soft tissues: Unremarkable. XR/XR shoulder RT min 2V IMPRESSION: No evidence of fracture. Degenerative changes and possible ligamentous injury. Shoulder MRI or ultrasound is recommended for better evaluation. Electronically authenticated by: MONTSE PAUL Date: 07/26/2024 16:19 Dictated By: Montse Paul M.D. Signed By: 07/26/241621 DD/ 18 TD/TT: Cargo Service Agent: [place] [address] XRay Report Signed Patient: OSCAR COX MR#: [id number] : 1945 Acct:[id number] Age/Sex: 79 / M ADM Date: 07/26/24 Loc: ER Attending Dr: Ordering Physician: Jonnathan Jacobson Date of Service: 07/26/24 Procedure(s): XR shoulder RT min 2V Accession Number(s): [id number] cc: Neo Gould M.D. ; Jonnathan Jacobson [place] [address] Patient Name: OSCAR COX MRN: [id number]:[id number] date: 1945 Sex: M Assigned Patient Location: ED.MAIN Current Patient Location: ED.MAIN Accession/Order Numb er: [id number] Exam Date: 15:50 Report Date: 07/26/2024 16:19 At the request of: JONNATHAN JACOBSON Procedure: XR should er RT min 2V EXAM: XR shoulder RT min 2V HISTORY: pain COMPARISON: None. TECHNIQUE: 3 views o f the right shoulder. FINDINGS: Bones: No acute frac ture or aggressive appearing bony lesion. Joints: Normal alignment. 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 Heterotopic calcifications are noted at the acromioclavicular eveline int. 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 Soft tissues: Unremarkable. X R/XR shoulder RT min 2V IMPRESSION: No evidence of fracture. Degenerative changes and possible ligamentous injury. Shoulder MRI or ultrasound is recommended for better evaluation. Electronically authenticated by: MONTSE PAUL Date: 07/26/2024 16:19 Dictated By: Montse Paul M.D. Signed By: 07/26/242 DD/ TD/TT: Cargo Service Agent: US breast BI complete Reviewed date:07/18/2024 06:55:58 PM Interpretation: Performing Lab: Notes/Report: Source Facility: [place] [address] Ultrasound Report Signed Patient: OSCAR COX MR#: [id number] : 1945 Acct:[id number] Age/Sex: 79 / M ADM Date: 07/18/24 Loc: MAMMO Attending Dr: Neo Gould M.D. Ordering Physician: Neo Gould M.D. Date of Service: 07/18/24 Procedure(s): US breast BI complete Accession Number(s): [id number] cc: Neo Gould M.D. Patient Name: OSCAR COX MR#: [id number] : 1945 Exam Date: 07/18/2024 Ordering Doctor: DR NEO GOULD . RADIOLOGY REPORT PROCEDURE: MM TOMOSYNTHESIS DIAGNOSTIC BI, 07/18/2024, 13:33 US BREAST BI COMPLETE, 07/18/2024, 13:59 COMPARISON: None. INDICATIONS: Unspecified Lump In Left Breast N63.20 Calculator Name NCI Breast Cancer Risk Assessment Tool 5 Year Breast Cancer Risk Not Applicable. Lifetime Breast Cancer Risk Not Applicable. Personal Breast Cancer No Personal Ovarian Cancer No Treatments None Family Cancers None LOCATION: [facility] BREAST COMPOSITION: The breasts are almost entirely fatty. FINDINGS: DIAGNOSTIC CATEGORY 2--BENIGN FINDING: Scattered benign-appearing calcifications are present. RIGHT BREAST: No significant suspicious finding. LEFT BREAST: No significant suspicious finding. No mammographic or ultrasound abnormality to correspond to the patient's palpable abnormality demarcated with a triangle marker upper inner quadrants of both breasts RECOMMENDATIONS: CLINICAL EVALUATION. PLEASE NOTE: A NORMAL MAMMOGRAM DOES NOT EXCLUDE THE POSSIBILITY OF BREAST CANCER. A CLINICALLY SUSPICIOUS PALPABLE LUMP SHOULD BE BIOPSIED. Dictated by: Gal Rogers MD on 07/18/2024 at 15:25 Approved by: Gal Rogers MD on 07/18/2024 at 15:29 Dictated By: Gal Rogers M.D. Signed By: 07/18/24 1530 DD/ 1529 TD/TT: Cargo Service Agent: [place] [address] Ultrasound Report Signed Patient: OSCAR COX MR#: [id number] : 1945 Acct:[id number] Age/Sex: 79 / M ADM Date: 07/18/24 Loc: MAMMO Attending Dr: Ramos Gould M.D. Ordering Physician: Neo Gould M.D. Date of Service: 07/18/24 Procedure(s): US favian ast BI complete Accession Number(s): [id number] cc: Neo Gould M.D. Patient Name: OSCAR COX MR#: [id number] : 1945 Exam Date: 07/18/2024 Ordering Doctor: DR NEO GOULD . RADIOLOGY REPORT PROCEDURE: MM TOMOSYNTHESIS DIAGNOSTIC BI, 07/18/2024, 13:33 US BREAST BI COMPLET E, 07/18/2024, 13:59 COMPARISON: None. INDICATIONS: Unspeci fied Lump In Left Breast N63.20 Calculator Name NCI Breast Cancer Risk Assessment Tool 5 Year Breast Cancer Risk Not Applicable. Lifetime Breast Canc er Risk Not Applicable. Personal Breast Canc er No Personal Ovarian Can cer No Treatments None Family Cancers None LOCATION: [facility] BREAST COMPOSITION: The breasts are almost entirely fatty. FINDINGS: DIAGNOSTIC CATEGORY 2--BENIGN FINDING: Scattered benign-appearing calcifications are present. RIGHT BREAST: No significant suspicious finding. LEFT BREAST: No significant suspicious finding. No mammographic or ultrasound abnormality to correspond to the patient's palpable abnormality demarcated with a triangle marker upper inner quadrants of both breasts RECOMMENDATIONS: CLINICAL EVALUATION. PLEASE NOTE: A GAL L MAMMOGRAM DOES NOT EXCLUDE THE POSSIBILITY OF BREAST CANCER. A CLINICALLY SUSPICIOUS PALPABLE LUMP SHOULD BE BIOPSIED. Dictated by: Gal riech MD on 07/18/2024 at 15:25 Approved by: Gal reich MD on 07/18/2024 at 15:29 Dictated By: Duy Rogers M.D. Signed By: 07/18/24 1530 DD/ 1529 TD/TT: Cargo Service Agent: MM tomosynthesis diagnostic BI Reviewed date:07/18/2024 06:55:58 PM Interpretation: Performing Lab: Notes/Report: Source Facility: [place] [address] Mammography Report Signed Patient: OSCAR COX MR#: [id number] : 1945 Acct:[id number] Age/Sex: 79 / M ADM Date: 07/18/24 Loc: MAMMO Attending Dr: Neo Gould M.D. Ordering Physician: Neo Gould M.D. Results: Date of Service: 07/18/24 Follow Up: Procedure(s): MM tomosynthesis diagnostic BI Accession Number(s): [id number] cc: Neo Gould M.D. Patient Name: OSCAR COX MR#: [id number] : 1945 Exam Date: 07/18/2024 Ordering Doctor: DR NEO GOLUD . RADIOLOGY REPORT PROCEDURE: MM TOMOSYNTHESIS DIAGNOSTIC BI, 07/18/2024, 13:33 US BREAST BI COMPLETE, 07/18/2024, 13:59 COMPARISON: None. INDICATIONS: Unspecified Lump In Left Breast N63.20 Calculator Name NCI Breast Cancer Risk Assessment Tool 5 Year Breast Cancer Risk Not Applicable. Lifetime Breast Cancer Risk Not Applicable. Personal Breast Cancer No Personal Ovarian Cancer No Treatments None Family Cancers None LOCATION: [facility] BREAST COMPOSITION: The breasts are almost entirely fatty. FINDINGS: DIAGNOSTIC CATEGORY 2--BENIGN FINDING: Scattered benign-appearing calcifications are present. RIGHT BREAST: No significant suspicious finding. LEFT BREAST: No significant suspicious finding. No mammographic or ultrasound abnormality to correspond to the patient's palpable abnormality demarcated with a triangle marker upper inner quadrants of both breasts RECOMMENDATIONS: CLINICAL EVALUATION. PLEASE NOTE: A NORMAL MAMMOGRAM DOES NOT EXCLUDE THE POSSIBILITY OF BREAST CANCER. A CLINICALLY SUSPICIOUS PALPABLE LUMP SHOULD BE BIOPSIED. Dictated by: Gal Rogers MD on 07/18/2024 at 15:25 Approved by: Gal Rogers MD on 07/18/2024 at 15:29 Dictated By: Gal Rogers M.D. Signed By: 07/18/24 1530 DD/ 1529 TD/TT: Cargo Service Agent: [place] [address] Mammography Report Signed Patient: OSCAR COX MR#: [id number] : 1945 Acct:[id number] Age/Sex: 79 / M ADM Date: 07/18/24 Loc: MAMMO Attending Dr: Ramos Gould M.D. Ordering Physician: Neo Gould M.D. Results: Date of Service: 07/18/24 Follow Up: Procedure(s): MM tomosynthesis diagnostic BI Accession Number(s): [id number] cc: Neo Gould M.D. Patient Name: OSCAR COX MR#: [id number] : 1945 Exam Date: 07/18/2024 Ordering Doctor: DR NEO GOULD . RADIOLOGY REPORT PROCEDURE: MM TOMOSYNTHESIS DIAGNOSTIC BI, 07/18/2024, 13:33 US BREAST BI COMPLET E, 07/18/2024, 13:59 COMPARISON: None. INDICATIONS: Unspeci fied Lump In Left Breast N63.20 Calculator Name NCI Breast Cancer Risk Assessment Tool 5 Year Breast Cancer Risk Not Applicable. Lifetime Breast Canc er Risk Not Applicable. Personal Breast Canc er No Personal Ovarian Can cer No Treatments None Family Cancers None LOCATION: [facility] BREAST COMPOSITION: The breasts are almost entirely fatty. FINDINGS: DIAGNOSTIC CATEGORY 2--BENIGN FINDING: Scattered benign-appearing calcifications are present. RIGHT BREAST: No significant suspicious finding. LEFT BREAST: No significant suspicious finding. No mammographic or ultrasound abnormality to correspond to the patient's palpable abnormality demarcated with a triangle marker upper inner quadrants of both breasts RECOMMENDATIONS: CLINICAL EVALUATION. PLEASE NOTE: A GAL L MAMMOGRAM DOES NOT EXCLUDE THE POSSIBILITY OF BREAST CANCER. A CLINICALLY SUSPICIOUS PALPABLE LUMP SHOULD BE BIOPSIED. Dictated by: Gal reich MD on 07/18/2024 at 15:25 Approved by: Gal reich MD on 07/18/2024 at 15:29 Dictated By: Duy Rogers M.D. Signed By: 07/18/24 1530 DD/ 1529 TD/TT: Cargo Service Agent: PROF Tello(COMP METB) Reviewed date:07/03/2024 05:05:59 PM Interpretation: Performing Lab: Notes/Report: [facility] , Sodium 139 136-145 mmol/L Potassium 3.6 3.5-5.1 mmol/L Chloride 104 98-107 mmol/L Carbon Dioxide 32.4 21.0-32.0 mmol/L Anion Gap 6.2 Glucose 88 74-106 mg/dL Blood Urea Nitrogen 14.0 7.0-18.0 mg/dL Creatinine 0.93 0.70-1.30 mg/dL Estimated GFR ( Anjali >60 >=60 Estimated GFR (Non- Jennifer >60 >=60 BUN Creatinine Ratio 15.1 Calcium 9.4 8.5-10.1 mg/dL Bilirubin Total 0.8 0.2-1.0 mg/dL Aspartate Amino Transferase 16 15-37 U/L Alanine Aminotransferase 18 16-63 U/L Alkaline Phosphatase 105 46-116 U/L Total Protein 6.5 6.4-8.2 g/dL Albumin Level 3.3 3.4-5.0 g/dL Globulin 3.2 Albumin Globulin Ratio 1.0 Performing Lab: see note ML - [facility] LB TSH Reviewed date:06/27/2024 09:19:20 PM Interpretation: Performing Lab: Notes/Report: [facility] , Thyroid Stimulating Hormone 2.801 0.358-3.740 uIU/mL Performing Lab: see note ML - [facility] LB T4 Reviewed date:06/27/2024 09:19:20 PM Interpretation: Performing Lab: Notes/Report: [facility] , T4 Thyroxine 9.20 4.50-12.10 ug/dL Performing Lab: see note ML - [facility] LB PROF 14(COMP METB) Reviewed date:06/27/2024 09:19:20 PM Interpretation: Performing Lab: Notes/Report: [facility] , Sodium 145 136-145 mmol/L Potassium 3.8 3.5-5.1 mmol/L Chloride 109 98-107 mmol/L Carbon Dioxide 30.0 21.0-32.0 mmol/L Anion Gap 9.8 Glucose 97 74-106 mg/dL Blood Urea Nitrogen 13.0 7.0-18.0 mg/dL Creatinine 0.92 0.70-1.30 mg/dL Estimated GFR ( Anjali >60 >=60 Estimated GFR (Non- Jennifer >60 >=60 BUN Creatinine Ratio 14.1 Calcium 9.4 8.5-10.1 mg/dL Bilirubin Total 0.6 0.2-1.0 mg/dL Aspartate Amino Transferase 20 15-37 U/L Alanine Aminotransferase 26 16-63 U/L Alkaline Phosphatase 108 46-116 U/L Total Protein 6.4 6.4-8.2 g/dL Albumin Level 3.3 3.4-5.0 g/dL Globulin 3.1 Albumin Globulin Ratio 1.1 Performing Lab: see note ML - [facility] LB LIPID PROFILE Reviewed date:06/27/2024 09:19:20 PM Interpretation: Performing Lab: Notes/Report: [facility] , Triglycerides 54 <=150 mg/dL Cholesterol 107 <=200 mg/dL HDL Cholesterol 61 40-60 mg/dL > or =60 mg/dl - LOW CARDIOVASCULAR RISK <40 mg/dl - HIGH CARDIOVASCULAR RISK LDL Cholesterol Calculated 36.0 <100 mg/dl OPTIMAL 100-129 mg/dl NEAR OR ABOVE OPTIMAL 130-159 mg/dl BORDERLINE HIGH 160-189 mg/dl HIGH >190 mg/dl VERY HIGH VLDL CHOLESTEROL 10.8 Chol HDL Ratio 1.8 3.3 - 4.4 LOW RISK 4.4 - 7.1 AVERAGE RISK 7.1 - 11.0 MODERATE RISK >11.0 HIGH RISK Performing Lab: see note ML - [facility] LB GLYCOHEMOGLOBIN A1C Reviewed date:06/27/2024 09:19:20 PM Interpretation: Performing Lab: Notes/Report: [facility] , Glycohemoglobin A1C 5.3 4.5-6.2 % ADA RECOMMENDED LIMIT 4.0 - 6.0 ADA THERAPEUTIC TARGET < 7.0 ACTION SUGGESTED > 7.0 Estimated Average Glucose 105 Performing Lab: see note ML - [facility] FREE T3 Reviewed date:06/27/2024 09:19:20 PM Interpretation: Performing Lab: Notes/Report: [facility] , Free T3 2.91 2.18-3.98 pg/mL Performing Lab: see note ML - [facility] LB CBC AUTO DIFF Reviewed date:06/27/2024 09:19:20 PM Interpretation: Performing Lab: Notes/Report: [facility] , White Blood Count 4.5 4.0-11.0 10 3/uL Red Blood Count 3.54 4.70-6.10 10 6/uL Hemoglobin 10.8 14.0-18.0 g/dL Hematocrit 34.5 42.0-54.0 % Mean Corpuscular Volume 97.5 80.0-94.0 fL Mean Corpuscular Hemoglobin 30.5 25.9-34.0 pg Mean Corpuscular HGB Conc 31.3 29.9-35.2 g/dL Red Cell Distribution Width 14.4 11.0-15.0 % Platelet Count 182 150-450 10 3/uL Mean Platelet Volume 10.2 9.5-13.5 fL Neutrophils Percent Auto 59.9 43.0-75.0 % Lymphocytes Percent Auto 22.4 20.5-60.0 % Monocytes Percent Auto 11.9 1.7-12.0 % Eosinophils Percent Auto 4.5 0.9-7.0 % Basophils Percent Auto 1.1 0.2-2.0 % Immature Granulocytes Pct Auto 0.2 0.0-0.5 % Neutrophils Absolute Auto 2.7 1.4-6.5 10 3/uL Lymphocytes Absolute Auto 1.0 1.2-3.8 10 3/uL Monocytes Absolute Auto 0.5 0.3-0.8 10 3/uL Eosinophils Absolute Auto 0.2 0.0-0.7 10 3/uL Basophils Absolute Auto 0.1 0.0-0.1 10 3/uL Immature Granulocytes Abs Auto 0.01 0.00-0.03 10 3/uL Performing Lab: see note ML - [facility] GLYCOHEMOGLOBIN A1C Reviewed date:02/06/2025 06:41:27 PM Interpretation: Performing Lab: Notes/Report: [facility] , Glycohemoglobin A1C 5.3 4.5-6.2 % ADA RECOMMENDED LIMIT 4.0 - 6.0 ADA THERAPEUTIC TARGET < 7.0 ACTION SUGGESTED > 7.0 Estimated Average Glucose 105 Performing Lab: see note ML - [facility] Reason For Referral Diagnosis 1 Weakness generalized (R53.1) Referral Organization [facility] Referring Provider First Name NEO Referring Provider Last Name LUIS FERNANDO Referring Provider Speciality Family Med icine Referred Provider [facility], Physical Therap y Referred Provider Specialty Physical Med icine and Rehabilitation Referral Priority Routine Reason Patient would like t o resume PT please. 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) Referral Organization [facility] Referring Provider First Name Zackery Referring Provider Last Name Luis Fernando [facility] Referred Provider [facility] Referred Provider Specialty Neurology Referral Priority Routine Reason Ruptured biceps tend on Diagnosis 1 Shoulder pain, right (M25.511) Referral Organization [facility] Referring Provider First Name Zackery Referring Provider Last Name Luis Fernando Referring Provider Speciality Family Med icine Referred Provider [facility], Physical Therap y Referred Provider Specialty Physical Med icine and Rehabilitation Referral Priority Routine Diagnosis 1 Rotator cuff tear (M 75.100) Referral Organization [facility] Referring Provider First Name Zackery Referring Provider Last Name Luis Fernando Referring Provider Speciality Family Med icine Referred Provider Javon Donald Referred Provider Specialty Orthopedic S urgery Referral Priority Routine Medications Medication SIG (Take, Route, Frequency, Duration) Notes Start Date End Date Status Eliquis 5 MG 1 tablet Orally BID for 90 days Active Centrum Adult Active hydrALAZINE HCl 50 MG 1 tablet with food Orally twice daily for 30 days 03/20/2024 Active Furosemide 40 mg TAKE 1 TABLET BY DEEJAY TH TWICE DAILY for 90 Active Acetaminophen 500 MG 2 capsule as needed Orally twice daily 03/20/2024 Active Synthroid 50 MCG 1 tablet in the morn ing on an empty stomach Orally Once a day for 30 days 09/24/2024 Active Atorvastatin Calcium 80 mg TAKE 1 TABLET BY MOUTH DAILY for 90 Active Spironolactone 50 MG 1 tablet Orally bid for 3 days 3 days 06/26/2024 Active rOPINIRole HCl 1 MG 1 tablet 1 to 3 hour s before bedtime Orally Once a day for 30 days 03/20/2024 Active oxyBUTYnin Chloride 5 MG 1 tablet Orally prn PRN Active Social History Tobacco Use: Social History Observation Description Date Details (start date - stop date) Never Smoker NA - NA Tobacco Use/Smoking Question Answer Notes Patient is a nonsmoker Alcohol Screen (Audit-C) Question Answer Notes Did you have a drink containing alcohol in the p ast year? No Points 0 Interpretation Negative AUDIT-C (Standard) Question Answer Notes Did you have a drink containing alcohol in the p ast year? 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) Active confirmed Problem Acute on chronic diastolic heart failure (977807814) Acute on chronic diastolic (congestive) heart failure (I50.33) Active confirmed Problem 737293789 Diverticulosis o f large intestine without perforation or abscess without bleeding (K57.30) Active confirmed Problem 245160007 Polyp of colon (K63.5) Active confirmed Problem 0207442357460968 Unilateral primary osteoarthritis, left hip (M16.12) Active confirmed Problem 485381307 Spondylosis without myelopathy or radiculopathy, lumbar region (M47.816) Active confirmed Problem 71334659 Other intervertebral disc degeneration, lumbar region (M51.36) Active confirmed Problem 34234589 Urge incontinenc e (N39.41) Active confirmed Problem 70730458 Paresthesia of skin (R20.2) Active confirmed Problem Atrial fibrillation (87575872) Atrial fibrillation (I48.91) Active confirmed Problem Morbid obesity (427722368) Morbid obesity (E66.01) Active confirmed Problem Hypertension (23405800) Hypertension (I10) Active confirmed Problem COPD - Chronic obstructive pulmonary disease (05407034) COPD (chronic obstructive pulmonary disease) (J44.9) Active confirmed Problem Hypothyroidism (31953808) Hypothyroidism (E03.9) Active confirmed Problem Atrial fibrillation (disorder) (15033195) Afib (I48.91) Active confirmed Problem Coronary artery disease (83692013) CAD (coronary artery disease) (I25.10) Active confirmed Problem Peripheral edema (06520647) Peripheral edema (R60.9) Active confirmed Problem Knee pain (6529424026) Knee pain (M25.569) Active confirmed Problem Hematuria (64080987) Hematuria (R31.9) Active confirmed Problem Arthralgia of the pelvic region and thigh (868978487) Hip pain, right (M25.551) Active confirmed Problem Arthralgia of the pelvic region and thigh (760052531) Hip pain, left (M25.552) Active confirmed Problem Diarrhea (19955253) Diarrhea (R19.7) Active con firmed Problem Shoulder joint pain (786590294) Shoulder pain, right (M25.511) Active confirmed Problem Localized, primary osteoarthritis of the shoulder region (768902936) 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) Active confirmed Problem Cervical spondylosis (873504858) Cervical spondylosis (M47.812) Active confirmed Problem Arthritis of right knee (6303469276887166) Arthritis of right knee (M19.90) Active confirmed Problem Rotator cuff tear (699671639) Rotator cuff tear (M75.100) Active confirmed Problem Recurrent falls (394014031) Frequent falls (R29.6) Active confirmed Problem Iron deficiency anemia (86179507) Anemia, iron deficiency (D50.9) Active confirmed Problem Bleeding disorder (00139100) Bleeding disorder (D68.9) Active confirmed Problem General weakness (69011780) General weakness (R53.1) Active confirmed Problem Unable to walk (939015142) Unable to walk (R26.2) Active confirmed Problem Acute urinary tract infection (199879487) Acute UTI (N39.0) Active confirmed Problem Long-term current use of anticoagulant (649962505) Anticoagulated (Z79.01) Active confirmed Problem History of fall (252437706) Status post fall (Z91.81) Active confirmed Problem Essential hypertension (80483554) BP (high blood pressure) (I10) Active confirmed Problem Breast mass (48432952) Left breast mass (N63.20) Active confirmed Problem 44818264 Myalgia, unspecified site (M79.10) Active confirmed Problem Myofascial pain (778339147) Myofascial pain (M79.18) Active confirmed Problem Longstanding persistent atrial fibrillation (657784443) Longstanding persistent atrial fibrillation (I48.11) Active confirmed Problem Persistent hematuria (013641580) Persistent hematuria (N02.9) Active confirmed Vital Signs Blood pressure diastolic 58 mm Hg 02/03/2025 Height 70 in 02/03/2025 Blood pressure systolic 92 mm Hg 02/03/2025 Procedures Procedure Date Ordered Date Performed Result Body Sit e Cerumen Removal - performed 02/03/2025 N/A Echocardiogram 07/03/2024 N/A Encounters Encounter Location Date Provider Diagnosis [id number] [place] [address] 02/03/2025 Zackery Hoy Hypertension I10 ; C AD (coronary artery disease) I25.10 ; Atrial fibrillation I48.91 ; Hypothyroidism E03.9 ; Cerumen impaction H61.20 and Bilateral impacted cerumen H61.23 [facility] [address] [place] [address] 03/20/2024 NEO HOY CAD (coronary artery disease) I25.10 ; Atrial fibrillation I48.91 and Hypertension I10 [facility] [address] [place] [address] 06/26/2024 Zackery Hoy CAD (coronary artery disease) I25.10 ; Atrial fibrillation I48.91 ; Hypertension I10 ; COPD (chronic obstructive pulmonary disease) J44.9 and Left breast mass N63.20 [facility] [address] [facility] [place] [address] 08/08/2024 Zackery Hoy Shoulder pain, right M25.511 [facility] [address] [facility] [place] [address] 03/06/2024 NEO HOY [facility] [address] [facility] [place] [address] 03/14/2024 NEO HOY [facility] [address] [facility] [place] [address] 03/20/2024 NEO HOY [facility] [address] [facility] [place] [address] 03/29/2024 NEO HOY [facility] [address] [facility] [place] [address] 04/15/2024 NEO HOY Weakness generalized R53.1 [facility] [address] [facility] [place] [address] 04/16/2024 Zackery Hoy Weakness generalized R53.1 and Myalgia, unspecified site M79.10 [facility] [address] [facility] [place] [address] 07/01/2024 Zackery Hoy Anemia, iron deficie ncy D50.9 ; CIDP (chronic inflammatory demyelinating polyneuropathy) G61.81 ; Hypertension I10 and Edema of lower extremity R60.0 [facility] [address] [facility] [place] [address] 07/03/2024 Zackery Hoy Bradycardia R00.1 ; Weakness generalized R53.1 and Longstanding persistent atrial fibrillation I48.11 [facility] [address] [facility] [place] [address] 07/25/2024 Zackery Hoy CAD (coronary artery disease) I25.10 [facility] [address] [facility] [place] [address] 08/22/2024 Zackery Hoy Shoulder pain, right M25.511 [facility] [address] [place] [address] 09/19/2024 Zackery Gould Hypothyroidism E03.9 [facility] [address] [facility] [place] [address] 09/25/2024 Zackery Bravoy [facility] [address] [place] [address] 09/29/2024 Zackery Gould Rotator cuff tear M75.100 [facility] [address] [facility] [place] [address] 12/26/2024 Zackery Gould [facility] [address] [place] [address] 02/06/2025 Zackery Gould Abnormal blood chemi stry level R79.9 Assessments Encounter Date Diagnosis (ICD Code) Assessment Notes Treatment Notes Treatment Clinical Notes Section Notes 03/20/2024 CAD (coronary artery disease) (ICD-10 - I25.10) needs lexiscan to tcleared Orhto surgrey 03/20/2024 Atrial fibrillation (ICD-10 - I48.91) 06/26/2024 CAD (coronary artery disease) (ICD-10 - I25.10) 06/26/2024 Atrial fibrillation (ICD-10 - I48.91) 08/08/2024 Shoulder pain, right (ICD-10 - M25.511) 02/03/2025 Hypertension (ICD-10 - I10) 02/03/2025 CAD (coronary artery disease) (ICD-10 - I25.10) 04/15/2024 Weakness generalized (ICD-10 - R53.1) 04/16/2024 Weakness generalized (ICD-10 - R53.1) 04/16/2024 Myalgia, unspecified site (ICD-10 - M79.10) 07/01/2024 Anemia, iron deficiency (ICD-10 - D50.9) 07/01/2024 CIDP (chronic inflammatory demyelinating polyneuropathy) (ICD-10 - G61.81) 07/03/2024 Bradycardia (ICD-10 - R00.1) 07/03/2024 Weakness generalized (ICD-10 - R53.1) 07/25/2024 CAD (coronary artery disease) (ICD-10 - I25.10) 08/22/2024 Shoulder pain, right (ICD-10 - M25.511) 09/19/2024 Hypothyroidism (ICD-10 - E03.9) 09/29/2024 Rotator cuff tear (ICD-10 - M75.100) 02/06/2025 Abnormal blood chemistry level (ICD-10 - R79.9) 07/03/2024 Longstanding persistent atrial fibrillation (ICD-10 - I48.11) 07/01/2024 Hypertension (ICD-10 - I10) 02/03/2025 Atrial fibrillation (ICD-10 - I48.91) 06/26/2024 Hypertension (ICD-10 - I10) 03/20/2024 Hypertension (ICD-10 - I10) 06/26/2024 COPD (chronic obstructive pulmonary disease) (ICD-10 - J44.9) 02/03/2025 Hypothyroidism (ICD-10 - E03.9) 07/01/2024 Edema of lower extremity (ICD-10 - R60.0) 02/03/2025 Cerumen impaction (ICD-10 - H61.20) 06/26/2024 Left breast mass (ICD-10 - N63.20) 02/03/2025 Bilateral impacted cerumen (ICD-10 - H61.23) Plan Of Treatment Pending Test Test Name Order Date CMP (COMPLETE METABOLIC PANEL) 4 CMP (COMPLETE METABOLIC PANEL) 3 CMP (COMPLETE METABOLIC PANEL) 4 UA (URINALYSIS, COMPLETE) 09/29/2023 HEMOGLOBIN A1C (GLYCO) 06/26/2024 HEMOGLOBIN A1C (GLYCO) 02/03/2025 LIPID PANEL (CHOL/TRIG/HDL/LDL) 02/04/20 25 LIPID PANEL (CHOL/TRIG/HDL/LDL) 06/26/20 24 CBC WITH DIFF 06/26/2024 Echocardiogram 07/03/2024 Cerumen Removal - performed 02/03/2025 Urinalysis Microscopic 09/29/2023 Urinalysis Microscopic 06/14/2023 PSA-FREE AND TOTAL 09/29/2023 CBC W/AUTO DIFF 09/29/2023 CBC AUTO DIFF 06/14/2023 CBC AUTO DIFF 02/06/2025 CULTURE URINE 06/14/2023 CULTURE URINE 09/29/2023 LIPID PROFILE 09/29/2023 PROF 14(COMP METB) 06/14/2023 PROTIME 06/14/2023 PTT 06/14/2023 STOOL CULTURE 10/12/2023 CT HEAD WO CON 04/21/[address] WO CON 04/21/2023 THYROID PANEL (T4/TSH/FREE T3) 3 THYROID PANEL (T4/TSH/FREE T3) 4 THYROID PANEL (T4/TSH/FREE T3) 5 THYROID PANEL (T4/TSH/FREE T3) 4 MM screening mammo BI 06/26/2024 PSA, SCREENING 02/03/2025 BI US BREAST COMPLETE LEFT 06/26/2024 C difficile Toxin Gene AMIE 10/12/2023 MRI Shoulder RT w/o contrast 08/22/2024 CMP (COMP MET LOPEZ) w/eGFR CKD-EPI 2024 CBC WITH DIFF 02/03/2025 Insurance Providers Payer Name Payer Address Payer Phone Subscriber Number Group Number Insured Name Patient Relationship to Insured Coverage Start Date Coverage End Date [employer] PLAN [address] [place] [address] [id number] [facility] [place] Cox Self - patient is the insured 3 Medical (General) History Medical History History ICD Code Paroxysmal a-fib I48.0 Benign essential HTN I10 Adenocarcinoma of prostate C61 Occipital neuralgia M54.81 CHF with left ventricular diastolic dysf unction, NYHA class 4 I50.30 bradycardia Surgical History Surgery Date(Month/Year) Colonoscopy- Dr. Vera 04/26/2023 neck injections Hospitalization History Reason Date(Month/Year) 2022
--- OUTSIDE RECORDS SUMMARY | 2025-03-05 04:08 | XMS_ITS | Referral Summary ---
Author Organization [facility] Address [address] [place] [address] Care Team Providers Care Canine Service Teacher Name Role Phone Javier Gould MD Primary Care Provider [phone] Encounters Date Type Department Care Team Description 02/20/2025 Telephone [facility] [address] [place] [address] Shahida Moreno MA 02/18/2025 1:30 PM EDT Office Visit [facility] [address] [place] [address] Shiloh Hester MD Bradycardia (Primary Dx); Palpitations; Chronic a-fib (CMS/HCC) from Last 3 Months Allergies No known active allergies Medications Medication Sig Dispensed Refills Start Date End Date Status atorvastatin (Lipitor) 80 mg tablet Take 1 tablet by mouth at bedtime. Active furosemide (Lasix) 40 mg tablet Take 40 mg by mouth twice a day. Active hydroxychloroquine (Plaquenil) 200 mg tablet Take 1 tablet by mouth in the morning. 12/21/2022 Active oxybutynin (Ditropan) 5 mg tablet Take 1 tablet by mouth in the morning, afternoon, and at bedtime. 03/14/2023 Active potassium chloride CR (K-Tab) 20 mEq ER tablet Take 1 tablet by mouth in the morning. Active baclofen (Lioresal) 10 mg tablet TAKE 1/2 (ONE-HALF) TO 1 (ONE) TABLET BY MOUTH TWICE DAILY 04/11/2023 Active hyoscyamine (Anaspaz,Levsin) 0.125 mg tablet Take 0.125 mg by mouth every 4 (four) hours if needed for cramping. Active lisinopril 10 mg tabletIndications:H ypotension due to drugs Take 1 tablet (10 mg) by mouth in the morning. 90 tablet 3 11/27/2023 Active Additional Information Patient not taking.Reported on 02/19/2024 apixaban (Eliquis) 5 mg tabletIndications:L ongstanding persistent atrial fibrillation (CMS/HCC) Take 1 tablet (5 mg) by mouth in the morning and at bedtime. 180 tablet 3 11/27/2023 Active hydrALAZINE (Apresoline) 50 mg tablet Take 50 mg by mouth in the morning and at bedtime. Active rOPINIRole (Requip) 1 mg tablet Take 1 mg by mouth at bedtime. Active carvedilol (Coreg) 6.25 mg tablet Take 6.25 mg by mouth with breakfast and with evening meal. 06/01/2024 Active DULoxetine (Cymbalta) [address] capsule TAKE 1 CAPSULE BY MOUTH AT BEDTIME DAILY 06/27/2024 Active levothyroxine (Synthroid, Levoxyl) 50 mcg tablet Take 50 mcg by mouth. 10/19/2024 Active spironolactone (Aldactone) 50 mg tablet Take 1 tablet by mouth Twice daily at 6am and 6pm. 07/25/2024 Active Active Problems Problem Noted Date Diagnosed Date Contusion of knee 02/18/2025 Fall 02/18/2025 Knee joint effusion 02/18/2025 Cervical disc disease 11/27/2023 11/27/2023 Chronic anticoagulation 11/27/2023 11/27/19 24 Diarrhea 11/27/2023 11/27/2023 History of prostate cancer 11/27/202311/27 History of colonic polyps 11/27/20232023 Heart failure, diastolic 11/27/2023 024 Lower extremity edema 11/27/2023 11/27/2023 Acute on chronic combined sy stolic (congestive) and diastolic (congestive) heart failure 05/02/2023 11/27/2023 Atrial fibrillation 05/02/2023 11/27/2023 Bradycardia, unspecified 05/02/2023 024 Cognitive communication deficit 05/02/2023 11/27/2023 Atherosclerotic heart diseas e of [place] coronary artery without angina pectoris 05/02/2023 11/27/2023 Hypokalemia 05/02/2023 11/27/2023 Muscle weakness (generalized) 05/02/2023 Repeated falls 05/02/2023 11/27/2023 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 Hip pain 05/02/2023 Morbid obesity 05/02/2023 Acquired hallux valgus 03/28/2023 Arthritis of left hip 03/28/2023 05/11/2023 Arthritis of right knee 03/28/2023 05/11/20 Difficulty walking 03/28/2023 05/11/2023 Onychomycosis due to dermatophyte 03/28/2023 05/11/2023 Peripheral venous insufficiency 03/28/2023 05/11/2023 Presence of right artificial hip joint 05/11/2023 Primary osteoarthritis of left knee 03/28/2023 05/11/2023 Primary osteoarthritis of right hip 03/28/2023 05/11/2023 Hydrocele 07/10/2018 05/11/2023 Overview (05/11/2023): Right hydrocele - confirmed on u/s 05/02 - At this point it is relatively small. If it becomes larger we can repair surgically. 04/29/20: Reports recent enlargement. Exam benign. He is having some issues with edema. To be safe, will repeat US 11/09/20: Ultrasound bilateral hydroceles Body mass index 40.0-44.9, adult 10/24/2017 05/11/2023 Urge incontinence of urine 05/23/201705/11 Overview (05/11/2023): Urge incontinence, Improved with oxybutnin use prn starting 201604/07/20: Progressive issues. Plan to change from oxybutynin 5 mg to vesicare 5 mg for longer action 11/10/20: Prefers oxybutynin. 09/06/22: Stable using oxybutynin 5 mg prrn Adenocarcinoma of prostate 09/06/201605/11 Overview (05/11/2023): T1c adenocarcinoma prostate [place] 3+3 equals 6 in 3 cores on [...] Plan for targeted biopsy 12/29/20: Pathology demonstrating [place] 3+4=7 in 5 cores 5-70% cores including [...] lupron after today. Recheck psa 6 months Last Assessment & Plan: Persistently elevated psa, on active surveillance. Plan repeat pus/bx Hypertensive disorder 06/10/2014 05/11/2023 Primary cardiomyopathy 05/02/2013 Chronic ischemic heart disease 04/17/2013 0 05/11/2023 Premature beats 04/09/2013 05/11/2023 Social History Tobacco Use Types Packs/Day Years Used Date Smoking Tobacco: Former Cigarettes Smokeless Tobacco: Never Tobacco Cessation:Counseling Given: Not Answered Alcohol Use Standard Drinks/Week Comments Not Currently 0 (1 standard drink = 0.6 oz pur e alcohol) [place] Safety & Environment Answer Date Rec orded Fear of Current or Ex-Partner Not on file Emotionally Abused Not on file 12/07/2023 Physically Abused Not on file 12/07/2023 Sexually Abused Not on file 12/07/2023 Physically or Sexually Abused Not on file Sex and Gender Information Value Date Recorded Sex Assigned at Not on file Gender Identity Not on file Sexual Orientation Not on file Last Filed Vital Signs Vital Sign Reading Time Taken Comments Blood Pressure 108/67 02/18/2025 1:36 PM EDT Pulse 40 02/18/2025 1:36 PM EDT Temperature - - Respiratory Rate 11 06/01/2023 10:11 AM EDT Oxygen Saturation 95% 02/18/2025 1:36 PM EDT Inhaled Oxygen Concentration - - Weight 101 kg (222 lb) 02/19/2024 10:04 AM EDT Height 177.8 cm (5' 10 ) 02/18/2025 1:36 PM EDT Body Mass Index 31.85 02/19/2024 10:04 AM EDT Plan of Treatment Upcoming Encounters Date Type Department Care Team (Late st Contact Info) Description 04/01/2025 1:00 PM EDT Follow-Up [facility] [address] [place] [address] Shiloh Hester MD [address] [facility] [place] [address] Care Teams Canine Service Teacher Relationship Specialty Start Date End Date Javier Gould MD [address] [facility] [address] [address] PCP - General 05/10/23
--- OUTSIDE RECORDS SUMMARY | 2025-03-05 04:08 | XMS_ITS | Encounter Summary ---
Author Organization [facility] tem Address [id number] [address] [place] [address] Care Team Providers Care Building Maintenance Repairer Name Role Phone Javier Gould MD Primary Care Provider [phone] Encounter Details Date Type Department Care Team (Late st Contact Info) Description 02/09/2021 Telephone [facility] - Radiation Oncology [address] [place] [address] Ashly Ram Social History Tobacco Use Types Packs/Day Years [...] have Coronavirus / COVID-19? No / Unsure 02/09/2021 12:57 PM EDT documented as of this encounter Miscellaneous Notes * Telephone Encounter - Ashly Mcdonald - 02/09/2021 2:08 PM EDT ----- Message from Katiana Page RN sent at 02/04/2021 3:44 PM EDT ----- FYI his initial Lupron 45mg injection is scheduled with Dr. Torre on 02/09/2021 ----- Message ----- From: Katiana Page RN Sent: 02/04/2021 10:28 AM EDT To: Ashly Mcdonald, Brendan Nino, DO Yg Limon, Please schedule patient for [facility] Consult. Dr Nino reports the patient is concerned about costs....can you please have someone contact him from patient/financial services, to help him figure out this aspect of care? (I asked Yo/high school social studies tutor and she does not know cost specifics/potential atc-uj-btwyyo patient expenses; although she will talk to him about the [facility] Fund to help in that manner) Thank you Katiana * Telephone Encounter - Ashly Mcdonald - 02/09/2021 2:08 PM EDT Spoke with patient who states he will have his daughter call me to schedule an appointment as she will be providing his transportation. amanda * Telephone Encounter - Ashly Mcdonald - 02/09/2021 2:08 PM EDT Video visit scheduled with Dr. De León on 02/23/21. Patient daughter scheduled this and she will assist him with video jms documented in this encounter Plan of Treatment Upcoming Encounters Date Type Department Care Team (Late st Contact Info) Description 03/11/2025 1:45 PM EDT Office Visit [facility] [address] [place] [address] [place] [address] Pietro Torre MD [address] [place] [address] documented as of this encounter Visit Diagnoses Not on filedocumented in this encounter Care Teams Building Maintenance Repairer Relationship Specialty Start Date End Date Javier Gould MD PCP - General Family Medicine 01/10/19 documented as of this encounter
--- OUTSIDE RECORDS SUMMARY | 2025-03-05 04:08 | XMS_ITS | Encounter Summary ---
Author Organization [facility] tem Address [id number] [address] [place] [address] Care Team Providers Care Turkey Egg Gatherer Name Role Phone Javier Gould MD Primary Care Provider [phone] Encounter Details Date Type Department Care Team ([facility] Contact Info) Description 03/04/2021 Orders Only [facility] Oncology - Radiation Oncology [address] [place] [address] Brendan Nino, Social History Tobacco Use Types Packs/Day Years [...] Upcoming Encounters Date Type Department Care Team ([facility] Contact Info) Description 03/11/2025 1:45 PM EDT Office Visit [facility] [address] [place] [address] [place] [address] Pietro Torre MD [address] [place] [address] documented as of this encounter Visit Diagnoses Not on filedocumented in this encounter Care Teams Turkey Egg Gatherer Relationship Specialty Start Date End Date Javier Gould MD PCP - General Family Medicine 01/10/19 documented as of this encounter
--- OUTSIDE RECORDS SUMMARY | 2025-03-05 04:08 | XMS_ITS | Clinical Summary ---
Author Organization [facility] Address [address] [place] [address] Care Team Providers Care Coiled Tubing Operator Name Role Phone Javier Gould MD Primary Care Provider [phone] Allergies No known active allergies Medications metoprolol (LOPRESSOR) 100 MG tablet Take 100 mg by mouth 2 times daily Active atorvastatin (LIPITOR) 80 MG tablet Take 80 mg by mouth daily Active losartan (COZAAR) 100 MG tablet Take 100 mg by mouth daily Active amLODIPine (NORVASC) 10 MG tablet Take 10 mg by mouth daily Active apixaban (ELIQUIS) 5 MG TABS tablet Take by mouth 2 times daily Active oxybutynin (DITROPAN) 5 MG tablet Take 5 mg by mouth 3 times daily Active DULoxetine (CYMBALTA) 30 MG extended release capsule Take 30 mg by mouth daily Active celecoxib (CELEBREX) 100 MG capsule Take 100 mg by mouth 2 times daily Active carvedilol (COREG) 12.5 MG tablet Take 12.5 mg by mouth 2 times daily (with meals) Active Social History Tobacco Use Types Packs/Day Years Used Date Smoking Tobacco: Never Smokeless Tobacco: Never Sex and Gender Information Value Date Recorded Sex Assigned at Not on file Legal Sex Male 9:18 AM EST Gender Identity Not on file Sexual Orientation Not on file Last Filed Vital Signs Vital Sign Reading Time Taken Comments Blood Pressure - - Pulse - - Temperature 36.2 C (97.1 F) 12/11/2020 3:09 PM EST Respiratory Rate - - Oxygen Saturation - - Inhaled Oxygen Concentration - - Weight 124.7 kg (275 lb) 12/11/2020 3:09 PM EST Height 177.8 cm (5' 10 ) 12/11/2020 3:09 PM EST Body Mass Index 39.46 12/11/2020 3:09 PM EST Plan of Treatment Not on file Care Teams Coiled Tubing Operator Relationship Specialty Start Date End Date Javier Gould MD [address] [place] [address] PCP - General Family Medicine 04/24/20
--- OUTSIDE RECORDS SUMMARY | 2025-03-05 04:08 | XMS_ITS | Encounter Summary ---
Author Organization [facility] [facility] tem Address [facility] [id number] [address] [place] [address] Care Team Providers Care Store Keeper Name Role Phone Javier Gould MD Primary Care Provider [phone] Encounter Details Date Type Department Care Team (Late Contact Info) Description 02/04/2021 Orders Only [facility] - Radiation Oncology [address] [place] [address] Brendan Nino, Social History Tobacco [...] have Coronavirus / COVID-19? No / Unsure 02/02/2021 10:02 AM EDT documented as of this encounter Plan of Treatment Upcoming Encounters Date Type Department Care Team (Late Contact Info) Description 03/11/2025 1:45 PM EDT Office Visit [facility] [address] [place] [address] [place] [address] [phone] Pietro Torre MD [address] [place] [address] documented as of this encounter Visit Diagnoses Not on filedocumented in this encounter Care Teams Store Keeper Relationship Specialty Start Date End Date Javier Gould MD PCP - General Family Medicine 01/10/19 documented as of this encounter
--- OUTSIDE RECORDS SUMMARY | 2025-03-05 04:08 | XMS_ITS | Clinical Summary ---
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 Hip pain 05/02/2023 Morbid obesity 05/02/2023 Acquired hallux valgus 03/28/2023 Arthritis of left hip 03/28/2023 05/11/2023 Arthritis of right knee 03/28/2023 05/11/20 23 Difficulty walking 03/28/2023 05/11/2023 Onychomycosis due to [...] prostate 09/06/201605/11 Overview (05/11/2023): T1c adenocarcinoma prostate [place] 3+3 equals 6 [...] Plan for targeted biopsy 12/29/20: Pathology demonstrating [place] 3+4=7 in 5 cores 5-70% cores including [...] 04/17/2013 0 05/11/2023 Premature beats 04/09/2013 05/11/2023 Encounters Date Type Department Care Team Description 02/20/2025 Telephone [facility] [address] [place] [facility] [address] Shahida Moreno MA 02/18/2025 1:30 PM EDT Office Visit [place] [address] [place] [facility] [place] [address] Shiloh Hester MD Bradycardia (Primary Dx); Palpitations; Chronic a-fib (CMS/HCC) from Last 3 Months Social History Tobacco Use Types Packs/Day Years [...] Info) Description 04/01/2025 1:00 PM EDT Follow-Up [facility] [address] [place] [address] Shiloh Hester MD [address] [facility] [place] [phone] Health Maintenance Due Date Last Done Comments Medicare Annual Wellness (AWV) 1945 Pneumococcal Vaccine: 65+ Years (1 of 2 - PCV) 1952 Depression Screening 1958 Adult Tetanus 1968 Zoster Vaccines (1 of 2) 1996 Fall Risk Screening 2011 COVID-19 Vaccine (3 - 2023-2 5 season) 2024 04/29/2021, 04/09/2021 Influenza Vaccine (Season Ended) 2025 HIB Vaccines Aged Out No longer eligi ble based on patient's age to complete this topic HPV Vaccines Aged Out No longer eligi ble based on patient's age to complete this topic IPV Vaccines Aged Out No longer eligi ble based on patient's age to complete this topic Meningococcal B Vaccine Aged Out No l onger eligible based on patient's age to complete this topic Meningococcal Vaccine Aged Out No belinda radha eligible based on patient's age to complete this topic Rotavirus Vaccines Aged Out No longer eligible based on patient's age to complete this topic Care Teams Green Building Engineer Relationship Specialty Start Date End Date Javier Gould MD [address] [facility] [address] [address] PCP - General 05/10/23
--- OUTSIDE RECORDS SUMMARY | 2025-03-05 04:08 | XMS_ITS | Encounter Summary ---
Author Organization [facility] Address [id number] [address] [place] [address] Care Team Providers Care Deputy Fire Marshal Name Role Phone Javier Gould MD Primary Care Provider +- Reason for Visit * Reason Onset Date Comments Med Refill 09/29/2016 Encounter Details Date Type Department Care Team (Late st Contact Info) Description 09/29/2016 Refill [facility] [address] [place] [phone] Diamond Mendoza RMA Prostate cancer (HCC) (Primary Dx) Social History Tobacco Use Types Packs/Day Years Used Date Smoking Tobacco: Former Sex and Gender Information Value Date Recorded Sex Assigned at Not on file Legal Sex Male 12:21 PM EDT Gender Identity Not on file Sexual Orientation Not on file documented as of this encounter Plan of Treatment Upcoming Encounters Date Type Department Care Team (Late st Contact Info) Description 03/11/2025 1:45 PM EDT Office Visit [facility] [address] [place] [address] A [facility] [place] [address] Pietro Torre MD [address] [place] [address] documented as of this encounter Visit Diagnoses Diagnosis Prostate cancer (CMS-HCC)- Primary Malignant neoplasm of prostate documented in this encounter Care Teams Deputy Fire Marshal Relationship Specialty Start Date End Date Javier Gould MD PCP - General Family Medicine 01/10/19 documented as of this encounter
--- OUTSIDE RECORDS SUMMARY | 2025-03-05 04:08 | XMS_ITS | Encounter Summary ---
Author Organization [facility] [employer] [facility] tem Address [id number] [address] [place] [address] Care Team Providers Care Mysql Database Developer Name Role Phone Javier Gould MD Primary Care Provider [phone] Encounter Details Date Type Department Care Team ([facility] Contact Info) Description 04/23/2021 Orders Only [facility] Oncology - Radiation Oncology [address] [place] [phone] Jodi Newman ARRT Social History Tobacco Use Types Packs/Day Years [...] have Coronavirus / COVID-19? No / Unsure 04/15/2021 1:59 PM EDT documented as of this encounter Plan of Treatment Upcoming Encounters Date Type Department Care Team ([facility] Contact Info) Description 03/11/2025 1:45 PM EDT [facility] [address] [place] [address] [address] [facility] [place] [address] Pietro Torre MD [address] [place], [place] [phone] documented as of this encounter Visit Diagnoses Not on filedocumented in this encounter Care Teams Mysql Database Developer Relationship Specialty Start Date End Date Javier Gould MD PCP - General Family Medicine 01/10/19 documented as of this encounter
--- OUTSIDE RECORDS SUMMARY | 2025-03-05 04:08 | XMS_ITS | Encounter Summary ---
Author Organization [employer] tem Address [facility] [id number] [address] [place] [address] Care Team Providers Care Manager Film Name Role Phone Javier Gould MD Primary Care Provider [phone] Encounter Details Date Type Department Care Team (Late Contact Info) Description 03/14/2024 Orders Only [facility] [address] [place] [phone] External, Scanning Provider Social History Tobacco Use Types Packs/Day Years Used Date Smoking Tobacco: Former Cigarettes 1 20 0 12/21/1964 - 12/21/1984 Smokeless Tobacco: Never Comments:quit 35 years ago f or 20 years Alcohol Use Standard Drinks/Week Comments Yes 0 (1 standard drink = 0.6 oz pur e alcohol) Childcare Answer Date Recorded Childcare Unknown 03/25/2019 Employment Answer Date Recorded Employment Unknown 03/25/2019 Hunger Screening Answer Date Recorded Within the past 12 months we worried whether our food would run out before we got money to buy more. Never True 03/05/2024 Within the past 12 months th e food we bought just didn't last and we didn't have money to get more. Never True 03/05/2024 Purpose - Life Answer Date Recorded Purpose [...] Office Visit [facility] [address] [address] Pietro Torre MD [facility] [place] [address] documented as of this encounter Procedures Procedure Name Priority Date/Time Associated Diagnosis Comments PROSTATIC SPECIFIC ANTIGEN, DIAGNOSTIC Routine 03/04/2024 10:58 AM EDT documented in this encounter Results * Prostatic specific antigen, diagnostic (03/04/2024 10:58 AM EDT) Psa <0.13 MANUALLY TRANSCRIBED RESULTS us Scanning Provider External LAB BLOOD ORDERABLES Edited Result - Final MANUALLY TRANSCRIBED RESULTS documented in this encounter Visit Diagnoses Not on filedocumented in this encounter Care Teams Manager Film Relationship Specialty Start Date End Date Javier Gould MD PCP - General Family Medicine 01/10/19 documented as of this encounter
--- OUTSIDE RECORDS SUMMARY | 2025-03-05 04:08 | XMS_ITS | Encounter Summary ---
Author Organization [facility] tem Address [id number] [address] [place] [address] Care Team Providers Care Gyro Mechanic Name Role Phone Javier Gould MD Primary Care Provider [phone] Encounter Details Date Type Department Care Team (Late st Contact Info) Description 04/02/[address] [facility] - Radiation Oncology [address] [place] [address] Ashly Ram Social History Tobacco Use Types [...] on file documented as of this encounter Miscellaneous Notes * Telephone Encounter - Ashly Mcdonald - 04/02/2021 10:39 AM EDT ----- Message from Brendan Nino DO sent at 03/22/2021 11:22 AM EDT ----- Great thanks. I believe Monik also reached out to him to assist in this matter. Thanks, Brendan ----- Message ----- From: Ashly Mcdonald Sent: 03/22/2021 10:31 AM EDT To: Katiana Page RN, Brendan Nino DO This patient is undecided on his treatment. He wanted to check costs and then call us to let us know. I have a note to check on his decision ifI do not hear from him by the end of the week. amanda ----- Message ----- From: Katiana Page RN Sent: 03/22/2021 10:13 AM EDT To: Ashly Mcdonald, Brendan Nino, DO Do we know when he will be scheduled for [facility]? Thank you! * Telephone Encounter - Ashly Mcdonald - 04/02/2021 10:39 AM EDT Called patient to check the status of his treatment decision. Patients voicemail is full and I am unable to leave him a message. Will try again next week. If no call back, will send him a letter amanda * Telephone Encounter - Brendan Nino DO - 04/02/2021 10:39 AM EDT Great thanks * Telephone Encounter - Ashly Mcdonald - 04/02/2021 10:39 AM EDT I spoke with patient today. He is willing to proceed but he is unsure if he wants to proceed with [facility] or [facility] plus [employer]. At this time, I am not sure what to schedule. amanda * Telephone Encounter - Brendan Nino DO - 04/02/2021 10:39 AM EDT Thank you Ashly. I just spoke with Mr. Cox and he would like to proceed without [facility] and [employer]. Thanks for seeing him Uday. Brendan Crow * Telephone Encounter - Aaron De León MD - 04/02/2021 10:39 AM EDT Brendan- Not a problem. . . Thanks for the update. Dottie, Uday documented in this encounter Plan of Treatment Upcoming Encounters Date Type Department Care Team (Late st Contact Info) Description 03/11/2025 1:45 PM EDT Office Visit [facility] [address] [place] [address] [place] [address] Pietro Torre MD [address] [place] [address] documented as of this encounter Visit Diagnoses Not on filedocumented in this encounter Care Teams Gyro Mechanic Relationship Specialty Start Date End Date Javier Gould MD PCP - General Family Medicine 01/10/19 documented as of this encounter
--- OUTSIDE RECORDS SUMMARY | 2025-03-05 04:08 | XMS_ITS | Clinical Summary ---
Author Organization [employer] tem Address [facility] [id number] [address] [place] [address] Care Team Providers Care Emblem Fuser Tender Name Role Phone Javier Gould MD Primary Care Provider [phone] Allergies No known active allergies Medications amLODIPine (NORVASC) 10 mg tablet Take 8 tablets (80 mg total) by mouth in the morning. Active furosemide (LASIX) 20 mg tablet Take 2 tablets (40 mg total) by mouth 2 (two) times a day. Active hyoscyamine (LEVSIN) 0.125 mg SL tablet hyoscyamine 0.[address] 1 (ONE) TABLET UNDER THE TONGUE FOUR TIMES DAILY NEEDED Active hydrALAZINE (APRESOLINE) 50 mg tablet Take 1 tablet (50 mg total) by mouth in the morning and 1 tablet (50 mg total) before bedtime. Active rOPINIRole (REQUIP) 1 mg tablet Take 1 tablet (1 mg total) by mouth nightly. 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 If it becomes larger we can repair surgically. 04/29/20: Reports recent enlargement. Exam benign. He is having some issues with edema. To be safe, will repeat US 11/09/20: Ultrasound bilateral hydroceles Body mass index 40.0-44.9, adult 10/24/2017 Urge incontinence of urine 05/23/2017 Overview (09/06/2022): Urge incontinence, Improved with oxybutnin use prn starting 201604/07/20: Progressive issues. Plan to change from oxybutynin 5 mg to vesicare 5 mg for longer action 11/10/20: Prefers oxybutynin. 09/06/22: Stable using oxybutynin 5 mg prrn Prostate cancer 09/06/2016 Overview (03/05/2024): T1c adenocarcinoma prostate Alem 3+3 equals 6 [...] eliquis 09/18/19 PUS/Bx, vol 21.3 gms 10/01/19: [place] 3+3=6 in <5% of 2 cores right [...] Plan for targeted biopsy 12/29/20: Pathology demonstrating [place] 3+4=7 in 5 cores 5-70% cores including [...] montsh, return here 1 year with psa Assessment & Plan (09/20/2016 2:34 PM EST): Persistently elevated psa, on active surveillance. Plan repeat pus/bx Family History * Patient is adopted Medical History Relation Name Comments Heart disease Father Relation Name Status Comments Father Mother Social History Tobacco Use Types Packs/Day Years Used Date Smoking Tobacco: Former Cigarettes 1 20 0 12/21/1964 - 12/21/1984 Smokeless Tobacco: Never Tobacco Cessation:Counseling Given: Not Answered Comments:quit 35 years ago for 20 years Alcohol Use Standard Drinks/Week Comments [...] Sign Reading Time Taken Comments Blood Pressure 101/58 03/05/2024 4:01 PM EDT Pulse 52 03/05/2024 4:01 PM EDT Temperature 37.2 C (99 F) 01/19/2021 1:53 PM EDT Respiratory Rate 18 07/27/2021 1:15 PM EDT Oxygen Saturation 98% 06/08/2021 12:27 PM EDT Inhaled Oxygen Concentration - - Weight 127.9 kg (282 lb) 03/05/2024 4:01 PM EDT Height 175.3 cm (5' 9 ) 03/05/2024 4:01 PM EDT Body Mass Index 41.64 03/05/2024 4:01 PM EDT Plan of Treatment Upcoming Encounters Date Type Department Care Team (Late st Contact Info) Description 03/11/2025 1:45 PM EDT Office Visit [facility] [address] [place] [address] [place] [address] Pietro Torre MD [address] [place] [address] Health Maintenance Due Date Last Done Comments Depression Screening 1957 DTaP,Tdap and Td Vaccines (1 - Tdap) 1965 Zoster (Shingles) Vaccine (1 of 2) 1965 Abdominal Aortic Aneurysm (AAA) Screen 2011 Fall Risk Screening 2011 COVID-19 Vaccine (3 - Pfizer risk series) 05/27/2021 04/29/2021, 04/09/2021 Tobacco Screening 03/05/2025 03/05/2024 Influenza Vaccine 06/16/2025 Medical Devices Not on file Insurance [employer] MEDICARE Care Teams Emblem Fuser Tender Relationship Specialty Start Date End Date Javier Gould MD PCP - General Family Medicine 01/10/19
--- OUTSIDE RECORDS SUMMARY | 2025-03-05 04:08 | XMS_ITS | Encounter Summary ---
Author Organization [facility] [employer] [facility] tem Address [facility] [id number] [address] [place] [address] Care Team Providers Care Edge Bander Hand Name Role Phone Javier Gould MD Primary Care Provider [phone] Encounter Details Date Type Department Care Team (Late Contact Info) Description 04/23/2021 Abstract [facility] Oncology - Radiation Oncology [address] [place] [address] Brendan Nino DO Social History Tobacco Use Types Packs/Day Years [...] Upcoming Encounters Date Type Department Care Team ([facility] Contact Info) Description 03/11/2025 1:45 PM EDT Office Visit [facility] [address] [place] [address] [place] [phone] Pietro Torre MD [address] [place] [address] documented as of this encounter Visit Diagnoses Not on filedocumented in this encounter Care Teams Edge Bander Hand Relationship Specialty Start Date End Date Javier Gould MD PCP - General Family Medicine 01/10/19 documented as of this encounter
--- OUTSIDE RECORDS SUMMARY | 2025-03-05 04:08 | XMS_ITS | Encounter Summary ---
Author Organization [facility] Address [address] [place] [address] Care Team Providers Care Power Plant Mechanic Name Role Phone Javier Gould MD Primary Care Provider [phone] Encounter Details Date Type Department Care Team (Late Contact Info) Description 02/20/[address] [address] Shahida Moreno MA Social History Tobacco Use Types Packs/Day Years Used Date Smoking Tobacco: Former Cigarettes Smokeless Tobacco: Never Alcohol Use Standard Drinks/Week [...] Department Care Team (Late Contact Info) Description 04/01/2025 1:00 PM EDT Follow-Up [place] [address] [place] [address] Shiloh Hester MD [address] [facility] [address] documented as of this encounter Visit Diagnoses Not on filedocumented in this encounter Care Teams Power Plant Mechanic Relationship Specialty Start Date End Date Javier Gould MD [address] [facility] [place] [address] PCP - General 05/10/23 documented as of this encounter
--- OUTSIDE RECORDS SUMMARY | 2025-03-05 04:08 | XMS_ITS ---
Author Organization [employer] tem Address [facility] [id number] [address] [place] [address] Care Team Providers Care Track Repair Laborer Name Role Phone Javier Gould MD Primary Care Provider + Active Problems Problem Noted Date Diagnosed Date [...] cancer 09/06/2016 Overview (03/05/2024): T1c adenocarcinoma prostate [place] 3+3 equals 6 in 3 cores on [...] Plan pus/bx. Will need permission to hold ION Signature 09/18/19 PUS/Bx, vol 21.3 gms 10/01/19: [place] 3+3=6 in <5% of 2 cores right [...] psa, on active surveillance. Plan repeat pus/bx Current Treatment and Therapy Plans Urethrogram contrast* Plan Start Date:04/15/2021 Plan Provider:Brendan Nino DO Linked Problems Adenocarcinoma of prostate ( [facility]) Treatment Medications No medications scheduled. UROLOGY LEUPROLIDE (LUPRON/ELIGARD) 45 MG EVERY 6 MONTHS* Plan Start Date: 02/09/2021 Plan Provider:Pietro Torre MD Linked Problems Adenocarcinoma of prostate ( [facility]) Treatment Medications leuprolide (LUPRON) Past Treatment and Therapy Plans No past plan information found. Radiation Treatments * Course C1 05/03/2021 - 06/09/2021 Treatment Period Energy Fraction Dose Fractions Total Dose Plans Planned Prostate SV 05/03/2021 - 06/09/2021 250 28 / 28 7,000 Reference Points Delivered Rx Prostate 05/03/2021 - 06/09/2021 7,000
--- OUTSIDE RECORDS SUMMARY | 2025-03-05 04:08 | XMS_ITS | Encounter Summary ---
[facility] Address [id number] [address] [place] [address] Care Team Providers Care Command And Control Name Role Phone Javier Gould MD Primary Care Provider [phone] Encounter Details Date Type Department Care Team (Late Contact Info) Description 04/08/2021 Orders Only [facility] - Radiation Oncology [address] [place] [phone] Brendan Nino DO Adenocarcinoma of prostate ([facility]) (Primary Dx) Social History Tobacco Use Types [...] Office Visit [facility] [address] [place] [address] [place] [address] [phone] Pietro Torre MD [address] [place] [id number] Scheduled Orders Name Type Priority Associated Diagnoses Order Schedule Initial CT sim specifics: CONTRAST UPDATE Radiation Oncology Routine Adenocarcinoma of prostate ([facility]) 1 Occurrences starting 04/08/2021 until 04/08/[address] sim specifics: POSITIONING UPDATE Radiation Oncology Routine Adenocarcinoma of prostate ([facility]) 1 Occurrences starting 04/08/2021 until 04/08/2022 documented as of this encounter Visit Diagnoses Diagnosis Adenocarcinoma of prostate ([facility])- Primary Malignant neoplasm of prostate documented in this encounter Care Teams Command And Control Relationship Specialty Start Date End Date Javier Gould MD PCP - General Family Medicine 01/10/19 documented as of this encounter
--- OUTSIDE RECORDS SUMMARY | 2025-03-05 04:08 | XMS_ITS | Encounter Summary ---
Author Organization [employer] tem Address [facility][id number] [address] [place] [address] Care Team Providers Care Cremator Name Role Phone Javier Gould MD Primary Care Provider [phone] Encounter Details Date Type Department Care Team ([facility] Contact Info) Description 09/06/2022 Abstract [facility] [address] [place] [address] External, Scanning Provider Social History [...] have Coronavirus / COVID-19? No / Unsure 09/06/2022 1:58 PM EST documented as of this encounter Plan of Treatment Upcoming Encounters Date Type Department Care Team ([facility] Contact Info) Description 03/11/2025 1:45 PM EDT Office Visit [facility] [address] [place] [address] [place] [address] [address] Pietro Torre MD [address] [place] [address] documented as of this encounter Procedures Procedure Name Priority Date/Time Associated Diagnosis Comments MULTIPLE LABS Routine 08/31/2022 documented in this encounter Results * Multiple labs (08/31/2022) 08/31/2022 us Scanning Provider External [facility] Final Result MANUALLY TRANSCRIBED RESULTS documented in this encounter Visit Diagnoses Not on filedocumented in this encounter Care Teams Cremator Relationship Specialty Start Date End Date Javier Gould MD PCP - General Family Medicine 01/10/19 documented as of this encounter
--- OUTSIDE RECORDS SUMMARY | 2025-03-05 04:08 | XMS_ITS | Encounter Summary ---
Author Organization [facility] [employer] [facility] tem Address [facility] [place][id number] [address] [place] [address] Care Team Providers Care Causticiser Name Role Phone Javier Gould MD Primary Care Provider [phone] Encounter Details Date Type Department Care Team (Late Contact Info) Description 04/15/2021 Orders Only [facility] Oncology - Radiation Oncology [address] [place] [address] Katiana Page, RN Adenocarcinoma of prostate ([facility]) Social History Tobacco Use Types Packs/Day Years [...] Upcoming Encounters Date Type Department Care Team ([facility] Contact Info) Description 03/11/2025 1:45 PM EDT [facility] [address] [facility] [place] [address] Pietro Torre MD [facility] [place] [address] documented as of this encounter Visit Diagnoses Diagnosis Adenocarcinoma of prostate ([facility]) Malignant neoplasm of prostate documented in this encounter Care Teams Causticiser Relationship Specialty Start Date End Date Javier Gould MD PCP - General Family Medicine 01/10/19 documented as of this encounter
--- NOTE | 2025-03-05 04:10 | ECG_ITS ---
[facility] Test Date: 2025-03-05 Pat Name: JACKSON IQBAL Department: Room: - Gender: Male Boilermaker Welder: : 1945 Requested By: [id number] Order Number: [id number] Reading MD: JONATHAN HARRISON M.D. Measurements Intervals Jordan Rate: 34 P: 226 CT: 302 QRS: -34 QRSD: 168 T: 43 QT: 536 QTc: 431 Interpretive Statements Atrial fibrillation with slow ventricular response 2231 First degree AV block 2450 Right bundle branch block 7200 Abnormal left axis deviation 9150 abnormal ECG Compared to ECG 02/15/2024 10:10:12 Right bundle-branch block now present Left-axis deviation now present Electronically Signed On 03-05-2025 21:43:24 EDT by JONATHAN HARRISON M.D.
--- NOTE | 2025-03-05 04:13 | ED.FALL1 ---
HPI HPI - Fall General Chief Complaint: Fall Stated Complaint: FALL, LEG, ELBOW Time Seen by Provider: 03/05/25 03:52 Source: patient Mode of arrival: ambulance Limitations: no limitations History of Present Illness HPI Narrative: This 79-year-old male who is on Eliquis due to history of atrial fibrillation and lives alone is brought to the emergency department by EMS. The patient states he had fallen asleep and woke up and needed to use the bathroom. He was walking to the bathroom when he became dizzy and fell. He struck the left side of his chest/upper abdomen, his left elbow area and left lower leg when he fell. He states he struck these areas against the toilet. He has a skin tear to the left elbow area and approximately 10 cm elliptical laceration to the left lower leg. He states he was stuck between the toilet and the wall for a while and then called EMS. He denies any chest pain. He states he is wearing a Holter monitor device due to his atrial fibrillation and episodes of bradycardia. He is being evaluated to see whether or not he needs a pacemaker. He denies striking his head. He has chronic arthritis and chronic neck pain but he denies this is any different than normal. Related Data Home Medications ?Medication ?Instructions ?Recorded ?Confirmed furosemide 40 mg tablet 40 mg PO Q12H 04/12/23 03/03/25 apixaban 5 mg tablet (Eliquis) 5 mg PO Q12H 01/20/24 03/03/25 atorvastatin 80 mg tablet 80 mg PO DAILY 04/02/24 03/03/25 multivitamin 1 tab PO DAILY 04/02/24 03/03/25 Previous Rx's ?Medication ?Instructions ?Recorded acetaminophen 500 mg tablet 1,000 mg (2 x 500 mg) PO Q6H PRN 05/02/23 (Tylenol Extra Strength) Pain Scale 1-3 #120 tabs hydralazine 50 mg tablet 50 mg PO BID #60 tabs 02/16/24 ropinirole 1 mg tablet 1 mg PO QHS #30 tabs 02/16/24 baclofen 10 mg tablet See Rx Instructions .Route 08/29/24 .COMPLEX PRN muscle spasm #60 tabs duloxetine 20 mg capsule,delayed 20 mg PO .HS #30 caps 08/29/24 release (Cymbalta) baclofen 10 mg tablet 10 mg PO BID #60 tabs 02/26/25 duloxetine 20 mg capsule,delayed 20 mg PO DAILY #30 caps 02/26/25 release Allergies Allergy/AdvReac Type Severity Reaction Status Date / Time No Known Drug Allergies Allergy Verified 03/05/25 03:54 Opioid HPI Opioid Management Most Recent Pain and Opioid Data: Last Pain Scale 3 03/03/25, 10:25 Last Pain Intensity 4 02/15/24, 10:37 Last Pain Assessment 03/03/25, 10:25 Last ORT Total Score 0 02/14/24, 19:13 Last ORT Risk Category Low Risk 02/14/24, 19:13 Review of Systems ROS Status of ROS 10 or more systems reviewed and unremarkable except as noted in history and below [facility] Medical History (Updated 03/05/25 @ 06:44 by Roya Mccollum MD) Fall ?W19.XXXA - Unspecified fall, initial encounter (ICD-10) Weakness ?R53.1 - Weakness (ICD-10) Inability to walk ?R26.2 - Difficulty in walking, not elsewhere classified (ICD-10) Near syncope ?R55 - Syncope and collapse (ICD-10) Left leg weakness ?R29.898 - Other symptoms and signs involving the musculoskeletal system (ICD-10) Leg pain, left ?M79.605 - Pain in left leg (ICD-10) Frequent falls ?R29.6 - Repeated falls (ICD-10) Bradycardia with 31-40 beats per minute ?R00.1 - Bradycardia, unspecified (ICD-10) Hypokalemia ?E87.6 - Hypokalemia (ICD-10) PVC (premature ventricular contraction) ?I49.3 - Ventricular premature depolarization (ICD-10) Lower extremity edema ?R60.0 - Localized edema (ICD-10) Obesity ?E66.9 - Obesity, unspecified (ICD-10) Hypertension ?I10 - Essential (primary) hypertension (ICD-10) Prostate cancer ?C61 - Malignant neoplasm of prostate (ICD-10) Colon polyps ?K63.5 - Polyp of colon (ICD-10) Heart failure, diastolic ?I50.30 - Unspecified diastolic (congestive) heart failure (ICD-10) Coronary arteriosclerosis ?I25.10 - Atherosclerotic heart disease of [place] coronary artery without angina pectoris (ICD-10) Chronic anticoagulation ?Z79.01 - detention (current) use of anticoagulants (ICD-10) Cervical disc disease ?M50.90 - Cervical disc disorder, unspecified, unspecified cervical region (ICD-10) Atrial fibrillation ?I48.91 - Unspecified atrial fibrillation (ICD-10) Surgical History History of tonsillectomy and adenoidectomy ?Z90.89 - Acquired absence of other organs (ICD-10) H/O lumbar discectomy ?Z98.890 - Other specified postprocedural states (ICD-10) H/O total hip arthroplasty ?Z96.649 - Presence of unspecified artificial hip joint (ICD-10) H/O colonoscopy with polypectomy ?Z98.890 - Other specified postprocedural states (ICD-10) ?Z86.010 - Personal history of colonic polyps (ICD-10) Family History Other Family history not known due to adoption Social History Within the past year, how often did you have a drink containing alcohol: never Score interpretation: A score less than 4 is consistent with normal alcohol consumption. 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 Known occupational exposures/hazards: No Highest level of school completed/degree received: high school graduate Do you want help with school or training: No Are you now , , , , never or living with a partner: In a typical week, how many times do you talk on the telephone with family, friends, or neighbors: 3 or more times per week How often do you get together with friends or relatives: once per week How often do you attend orthodoxy or latter day services: never Do you belong to any clubs or organizations such as orthodoxy groups unions, fraternal or athletic groups, or school groups: no Total score: 1 Score interpretation: A score of less than or equal to 1 indicates the most socially isolated. Little interest or pleasure in doing things: not at all Feeling down, depressed, or hopeless: not at all Feel stressed/tense/nervous/anxious/difficulty sleeping: not at all Due to disability, difficulty making decisions: No Do you think of yourself as: straight/heterosexual Gender Identity: male Exam Narrative Exam Narrative: Vital signs and Nursing Notes reviewed: Patient is afebrile, he is bradycardic with a pulse of 45, blood pressure is mildly elevated at 140/54, he is not hypoxic with pulse ox of 97% on room air General: Awake, alert, oriented, no acute distress, lying comfortably on the stretcher-GCS 15 HEENT: Normocephalic atraumatic, mucous membranes are moist and pink, eyes are clear, normal conjunctiva, vision is grossly intact, posterior pharynx is normal in appearance. Neck: Supple, no midline bony vertebral tenderness or step-off Chest: Lungs are clear to auscultation with good air entry, there is no wheezing rhonchi or rales appreciated no accessory muscle use, patient is speaking in complete sentences-no chest wall tenderness to palpation CVS: Regular rate and rhythm S1-S2, no murmurs rubs or gallops, pulses are brisk and equal bilaterally ABD: Soft, nondistended, nontender, no rebound guarding or rigidity, bowel sounds are normal, no pulsatile masses appreciated Extremities: Moving all extremities, patient's lower legs are cool to the touch with chronic lower extremity skin changes, femoral pulses are equal bilaterally, dorsalis pedis pulses are difficult to assess due to swelling and coolness of the lower extremities bilaterally, is an approximately 3 x 3 cm skin tear on the left distal upper arm without bony tenderness. Patient is able to flex and extend the left arm without difficulty. There is an approx 3 x 3 cm abrasion over the left knee. There is an approximately 10 cm elliptical laceration to the mid to lower distal tibia area. Mild active bleeding noted Skin: Skin is cool to the touch on the bilateral lower extremities with skin tear of the left distal arm and laceration to the left mid to distal lower leg Neuro: No focal deficits, speech is clear, cognition is intact, brim and crown presser strength is intact, no facial droop noted, upper and lower extremity strength and sensation is intact although the patient is hesitant to use the left lower extremity to perform range of motion due to a large laceration on his left lower leg. Constitutional Vital Signs, click to edit/add: Last Vital Signs Pulse 35 L 03/05/25 05:51 Resp 16 03/05/25 05:51 BP 141/68 03/05/25 05:17 Pulse Ox 96 03/05/25 05:51 O2 Del Method Room Air 03/05/25 05:28 Course Vital Signs Vital signs: Vital Signs Pulse Rate 45 L 03/05/25 03:54 Respiratory Rate 18 03/05/25 03:54 Blood Pressure 140/54 03/05/25 03:54 Pulse Oximetry 97 03/05/25 03:54 Oxygen Delivery Method Room Air 03/05/25 03:54 Pulse Rate 35 L 03/05/25 05:51 Respiratory Rate 16 03/05/25 05:51 Blood Pressure 141/68 03/05/25 05:17 Pulse Oximetry 96 03/05/25 05:51 Oxygen Delivery Method Room Air 03/05/25 05:28 MDM - Fall MDM Narrative Medical decision making narrative: This 79-year-old male is brought to emergency department by EMS from home after he became dizzy while getting up to use the bathroom this morning and fell in his bathroom. He sustained an injury to his left elbow area, he has an approximately 3 x 3 cm skin tear in this area that was closed with Dermabond. He denies striking his head he has chronic neck pain which is unchanged. He denies any focal neurologic deficits. He was awake and alert upon arrival. He does have a Holter monitoring device on which he states is being used to decide whether or not he needs a pacemaker. The patient states that he sees the [facility] cardiology group. He recently had some medication changes due to atrial fibrillation with bradycardia. He is on Eliquis and has been on Eliquis for many years due to his history of A-fib. The patient also sustained an approximately 10 cm elliptical laceration to the left mid to distal lower leg. Upon arrival he was placed on the heating operators engineer and EKG was ordered which is an atrial pattern at 34 bpm. He was placed on the heating operators engineer and his pulse was gone down as low as 30. He is mostly asymptomatic despite this bradycardia. He was placed in room 6 and pacemaker pads were placed on his chest and back. His tetanus was updated. He declined the need for anything for pain stating that he had taken Tylenol and baclofen before going to bed. His pulse does go up as high as 60 typically when he is having something done such as an IV or when I closed the skin tear on his left elbow. X-ray of the left tib-fib does not reveal any fracture or dislocation foreign body. X-ray of the left knee shows degenerative changes but no acute fracture. X-ray of the left elbow area was not ordered due to the fact that the patient does not have any tenderness in this area and has full range of motion. His tetanus was updated. Skin tear on the left elbow was closed with Dermabond Laceration of the left lower leg was closed with eighteen 3-0 Ethilon sutures with good wound edge approximation. He was given 1 g of IV Ancef. Cardiac workup besides EKG was ordered. He has a normal white count and hemoglobin. Electrolytes are normal. Troponin is normal at 13.8. CT scan of the brain, C-spine and abdomen pelvis was ordered. The patient's only complaint of pain was in his left upper abdomen where he believes he struck his abdomen on the toilet. I reviewed results from a recent Holter monitoring device that showed a predominant rhythm of atrial fibs flutter with an average rate of 55 bpm with tachycardia of a maximum rate of 147, bradycardia with a minimum rate of 30 with ventricular ectopy of 70,000 with 68,000 being PVCs and 1800 being couplets with nonsustained V. tach and 36 episodes with the longest duration of [address] Gould was updated and is in agreement with tranfer to [facility] for evaluation for a pacemaker Medical Records Attestation: I reviewed the patient's medical records. Lab Data Attestation: I reviewed the patient's lab results. Labs: Lab Results 03/05/25 Range/Units 05:05 WBC 7.0 (4.0-11.0) 10^3/uL RBC 4.04 L (4.70-6.10) 10^6/uL Hgb 12.2 L (14.0-18.0) g/dL Hct 38.2 L (42.0-54.0) % MCV 94.6 H (80.0-94.0) fL MCH 30.2 (25.9-34.0) pg MCHC 31.9 (29.9-35.2) g/dL RDW 15.9 H (11.0-15.0) % Plt Count 181 (150-450) 10^3/uL MPV 10.7 (9.5-13.5) fL Neut % (Auto) 82.9 H (43.0-75.0) % Lymph % (Auto) 8.5 L (20.5-60.0) % [place] % (Auto) 7.3 (1.7-12.0) % Eos % (Auto) 0.6 L (0.9-7.0) % Baso % (Auto) 0.4 (0.2-2.0) % Neut # (Auto) 5.8 (1.4-6.5) 10^3/uL Lymph # (Auto) 0.6 L (1.2-3.8) 10^3/uL [place] # (Auto) 0.5 (0.3-0.8) 10^3/uL Eos # (Auto) 0.0 (0.0-0.7) 10^3/uL Baso # (Auto) 0.0 (0.0-0.1) 10^3/uL Abs Immat Gran (auto) 0.02 (0.00-0.03) 10^3/uL Imm/Tot Granulo (auto) 0.3 (0.0-0.5) % Sodium 141 (136-145) mmol/L Potassium 3.9 (3.5-5.1) mmol/L Chloride 106 (98-107) mmol/L Carbon Dioxide 29.3 (21.0-32.0) mmol/L Anion Gap 9.6 BUN 24.0 H (7.0-18.0) mg/dL Creatinine 1.10 (0.70-1.30) mg/dL Est GFR ( Amer) >60 (>=60 mL/min/1.73m^2) Est GFR (Non-Af Amer) >60 (>=60 mL/min/1.73m^2) BUN/Creatinine Ratio 21.8 Glucose 112 H (74-106) mg/dL Calcium 10.3 H (8.5-10.1) mg/dL Total Bilirubin 0.4 (0.2-1.0) mg/dL AST 26 (15-37) U/L ALT 31 (16-63) U/L Alkaline Phosphatase 157 H (46-116) U/L Troponin I High Sens 13.8 (4.0-76.1) pg/mL Total Protein 6.8 (6.4-8.2) g/dL Albumin 3.2 L (3.4-5.0) g/dL Globulin 3.6 g/dL Albumin/Globulin Ratio 0.9 ECG Data Attestation: I personally reviewed and interpreted this ECG as follows: (Atrial rhythm at 34 bpm, first-degree AV block, right bundle branch block, left axis deviation, no acute ST segment elevation or T wave inversion) Critical Care Time Critical Care Time Critical Care Time: Yes Total Critical Care Time: 35 Attestation: Due to this patient's presentation with syncope and profound bradycardia and the high probability of sudden and clinically significant deterioration in his condition he required the highest level of my preparedness to intervene urgently. I provided critical care time including documentation time medication orders and management reevaluation vital sign assessment ordering and reviewing of lab tests ordering reviewing of x-ray studies and is and consultation with the patient's family physician as well as consultation with transfer center and Cardiology:. Aggregate critical care time is 35 minutes including only time during which I was engaged in work directly related to his care and did not include time spent treating other patients simultaneously. Discharge Plan Discharge Patient Disposition: Still a Patient Procedures ED Procedure Instructions Procedures Procedures: Procedure note: Left elbow laceration repair; the laceration/skin flap was cleansed with normal saline, the flap was extended over the laceration and Dermabond was applied to the wound edges after the wound edges were approximated. Patient tolerated procedure well. Sterile nonstick dressing was applied by the nursing staff after the bleeding had stopped. Left lower leg laceration repair; the left lower leg was irrigated with normal saline and hydrogen peroxide. The flap was attached with a large blood clot which was gently washed away. The laceration wound edges were infiltrated with 1% lidocaine with epinephrine. Wound edges were approximated and 18, 3-0 Ethilon sutures were placed into the laceration with good wound edge approximation. Patient tolerated procedure well and a sterile nonstick dressing was applied by the nursing staff.
[2025-03-05 05:11] LABS: Basophils Percent Auto 0.4 % (0.2-2.0); Eosinophils Percent Auto 0.6 % (0.9-7.0); Hematocrit 38.2 % (42.0-54.0); Hemoglobin 12.2 g/dL (14.0-18.0); Immature Granulocytes Abs Auto 0.02 10^3/uL (0.00-0.03); Immature Granulocytes Pct Auto 0.3 % (0.0-0.5); Lymphocytes Absolute Auto 0.6 10^3/uL (1.2-3.8); Lymphocytes Percent Auto 8.5 % (20.5-60.0); Mean Corpuscular HGB Conc 31.9 g/dL (29.9-35.2); Mean Corpuscular Hemoglobin 30.2 pg (25.9-34.0); Mean Corpuscular Volume 94.6 fL (80.0-94.0); Mean Platelet Volume 10.7 fL (9.5-13.5); Monocytes Absolute Auto 0.5 10^3/uL (0.3-0.8); Monocytes Percent Auto 7.3 % (1.7-12.0); Neutrophils Absolute Auto 5.8 10^3/uL (1.4-6.5); Neutrophils Percent Auto 82.9 % (43.0-75.0); Platelet Count 181 10^3/uL (150-450); Red Blood Count 4.04 10^6/uL (4.70-6.10); Red Cell Distribution Width 15.9 % (11.0-15.0)
--- NOTE | 2025-03-05 05:32 | PC.NURSE ---
Patient to ED by EMS after falling at home in his bathroom. He lives alone. He became dizzy while up to the bathroom and fell over his walker in the bathroom, becoming trapped between the sink, shower and door. He was unable to get out unassisted. EMS had to help him up and out. he arrived to the ED with a holter monitor in place, he states it is a 30 day monitor ordered by his printer's assistant due to his irregular heart rhythm and slow heart rate. On arrival, he is in atrial rhythm with rate in 30s. His legs are edematous and cold. He has multiple skin tears and complains of pain, both from his fall and chronic. He starte din room 7 but is moved to room 6 and pacer pads are applied due to low heart rate. Daughter is at bedside.
[2025-03-05 05:34] LABS: Alanine Aminotransferase 31 U/L (16-63); Albumin Globulin Ratio 0.9; Albumin Level 3.2 g/dL (3.4-5.0); Alkaline Phosphatase 157 U/L (46-116); Anion Gap 9.6; Aspartate Amino Transferase 26 U/L (15-37); BUN Creatinine Ratio 21.8; Bilirubin Total 0.4 mg/dL (0.2-1.0); Calcium 10.3 mg/dL (8.5-10.1); Carbon Dioxide 29.3 mmol/L (21.0-32.0); Chloride 106 mmol/L (98-107); Estimated GFR (African America >60 (>=60 mL/min/1.73m^2); Estimated GFR (Non-African Ame >60 (>=60 mL/min/1.73m^2); Globulin 3.6 g/dL; Glucose 112 mg/dL (74-106); Potassium 3.9 mmol/L (3.5-5.1); Sodium 141 mmol/L (136-145); Total Protein 6.8 g/dL (6.4-8.2)
[2025-03-05] MEDS: ADACEL DIPH,PERTUSS(ACELL),TET VAC/PF 0.5 ML ADULT SYRINGE IM (05:41)
[2025-03-05] MEDS: LIDOCAINE HCL 1%-EPINEPHRINE 1:100,000 20 ML MDV 10 ML INJ (05:42)
[2025-03-05 06:04] LABS: Troponin I High Sensitivity 13.8 pg/mL (4.0-76.1)
[2025-03-05] MEDS: 0.9 % SODIUM CHLORIDE 1,000 ML 125 ML IV (07:07)
[2025-03-05] MEDS: CEFAZOLIN SODIUM/DEXTROSE,ISO 1 GM/50 ML PREMIX IV (08:25)
== END 2025-03-05 09:47 | disposition short-term general hospital (02) ==
PROVIDERS: Emergency Medicine; Emergency Provider Emergency Medicine; PCP Family Medicine
DX: S81.812A Laceration without foreign body, left lower leg, initial encounter (principal); R00.1 Bradycardia, unspecified; W18.39XA Other fall on same level, initial encounter; S51.012A Laceration without foreign body of left elbow, initial encounter; Z79.01 Long term (current) use of anticoagulants; I48.91 Unspecified atrial fibrillation; Z96.649 Presence of unspecified artificial hip joint; S80.212A Abrasion, left knee, initial encounter; R42 Dizziness and giddiness; Z23 Encounter for immunization; R10.12 Left upper quadrant pain
CPT/HCPCS: 12005; 36415; 70450; 71045; 72125; 73564; 73590; 74177; 80053; 81001; 84484; 85025; 90471; 90715; 93005; 96365; 99285; J0690; Q9967

== ENCOUNTER 2025-10-06 11:28 | Outpatient (OUT) | payer MEDICARE, SELFPAY ==
--- OUTSIDE RECORDS SUMMARY | 2025-09-25 14:15 | XMS_ITS | Encounter Summary ---
Author Organization [facility] Address [address] [place] [address] Care Team Providers Care Agronomy Manager Name Role Phone Javier Gould MD Primary Care Provider [phone] Encounter Details DateTypeDepartmentCare Team (Latest Contact Info)Hnalorrfsji86/11/2025 2:15 PM ESTOffice Visit [facility] [address] [place] [address] Shiloh Hester MD [address] [facility] [address] [facility] [address] Primary hypertension (Primary Dx); Falls frequently; Hypotension due to drugs; Longstanding persistent atrial fibrillation (CMS/HCC); Chronic a-fib (CMS/HCC); Pacemaker; Atrial fibrillation with slow ventricular response (CMS/HCC); Cardiac pacemaker in situ Social History Tobacco UseTypesPacks/DayYears UsedDateSmoking Tobacco: FormerCigarettes Smokeless Tobacco: NeverAlcohol UseStandard Drinks/WeekCommentsNot Currently0 (1 standard drink = 0.6 oz pure alcohol)[facility] UtilitiesAnswerDate RecordedIn the past 12 months has the [employer], gas, oil, or water [employer] threatened to shut off services in your home?No03/05/2025Humiliation, Afraid, Rape, and Kick questionnaireAnswerDate RecordedWithin the last year, have you been afraid of your partner or ex-partner?No03/05/2025Emotionally AbusedNot on file03/05/2025 Physically AbusedNot on file03/05/2025Sexually AbusedNot on file03/05/2025 Overall Financial Resource Strain (CARDIA)AnswerDate RecordedHow hard is it for you to pay for the very basics like food, housing, medical care, and heating?Not hard at all03/05/2025UT Safety & EnvironmentAnswerDate RecordedFear of Current or Ex-PartnerNot on file12/07/2023Emotionally AbusedNot on file12/07/2023 Physically AbusedNot on file12/07/2023Sexually AbusedNot on file12/07/2023 Physically or Sexually AbusedNot on file12/07/2023TransportationAnswerDate RecordedIn the past 12 months, has lack of transportation kept you from medical appointments or from getting medications?No03/05/2025Lack of Transportation (Non-Medical)Not on file03/05/2025Housing Stability Vital SignAnswerDate RecordedIn the last 12 months, was there a time when you were not able to pay the mortgage or rent on time?No03/05/2025Number of Times Moved in the Last Year Not on file03/05/2025t any time in the past 12 months, were you homeless or living in a residential (including now)?No03/05/2025Hunger Vital SignAnswerDate RecordedWithin the past 12 months, you worried that your food would run out before you got the money to buymore.Never true03/05/2025Ran Out of Food in the Last YearNot on file03/05/2025Sex and Gender InformationValueDate RecordedSex Assigned at IxzmuWmsx19/01/2025 1:54 PM EDTLegal LnoUwww8304/13/2022 10:12 PM EDT Gender FijznzdmQvmo12/01/2025 1:54 PM EDTSexual OrientationHeterosexual or Ronpgucm91/01/2025 1:54 PM EDTdocumented as of this encounter Last Filed Vital Signs Vital SignReadingTime TakenCommentsBlood Dgusgwdp36/56111/26/2024 2:26 PM EST Rhabl101809/25/2025 2:26 PM ESTTemperature--Respiratory Rate--Oxygen Lpupyzcfjj48% 09/25/2025 2:26 PM ESTInhaled Oxygen Concentration--Weight--Trctdi861.3 cm (5' 11 )09/25/2025 2:26 PM ESTBody Mass Index--documented in this encounter Progress Notes * Shiloh Hester MD - 09/25/2025 2:15 PM EST Images from the original note were not included. [facility] Cardiology Clinic Note Chief Complaint: Patient here for 6 mo follow up CAD, afib, bradycardia s/p PPM, and hypertension. Had routine labs with lipid panel in Jul 2025. Due for device interrogation in Nov 2025. Says every once in awhile hewakes up with racing heart beat . Denies chest pain, SOB, and bleeding on Eliquis. HPI: Oscar Cox is a 80 y.o. male With a known history of [...] Denies blood in the urine or stools. UPDATE 09/25/2025 Doing well Since I last saw him, he has undergone pacemaker placement for atrial fibrillation with slow ventricular response No chest pain Complains of tenderness over both nipples Cardiology ROS: Review of Systems Cardiovascular: Positive for leg swelling and palpitations. Skin: Positive for color change and dry skin. Musculoskeletal: Positive for joint pain and muscle weakness. Neurological: Positive for weakness. All other systems reviewed and are negative. [...] no known allergies. Medications Current Outpatient Medications: acetaminophen (Tylenol) 500 mg tablet, Take 500 mg by mouth every 6 (six) hours if needed for mild pain (1-3 pain score)., Disp: , Rfl: apixaban (Eliquis) 5 mg tablet, Take 1 tablet (5 mg) by mouth in the morning and at bedtime., Disp:180 tablet, Rfl: 3 atorvastatin (Lipitor) 80 mg tablet, Take 1 tablet by mouth at bedtime., Disp: , Rfl: carvedilol (Coreg) 6.25 mg tablet, Take 6.25 mg by mouth with breakfast and with evening meal., Disp: , Rfl: DULoxetine (Cymbalta) [address] capsule, Take 20 mg by mouth at bedtime., Disp: , Rfl: furosemide (Lasix) 40 mg tablet, Take 40 mg by mouth twice a day., Disp: , Rfl: hydrALAZINE (Apresoline) 50 mg tablet, Take 1 tablet (50 mg) by mouth two times daily for 196 doses., Disp: 60 tablet, Rfl: 3 levothyroxine (Synthroid, Levoxyl) 50 mcg tablet, Take 50 mcg by mouth before breakfast., Disp: , Rfl: oxybutynin (Ditropan) 5 mg tablet, Take 1 tablet by mouth in the morning, afternoon, and at bedtime., Disp: , Rfl: rOPINIRole (Requip) 1 mg tablet, Take 1 mg by mouth at bedtime., Disp: , Rfl: spironolactone (Aldactone) 50 mg tablet, Take 1 tablet (50 mg) by mouth Twice daily at 6am and 6pm., Disp: 60 tablet, Rfl: 0 Last Recorded Vitals BP 98/56 (BP Location: Left arm, Patient Position: Sitting) Pulse 68 Ht 1.803 m (5' 11 ) QnF217% BMI 28.31 kg/m?? Physical Examination: GENERAL: alert and oriented x3, [...] 07/03/2020 Cardiovascular Laboratory Report FINAL IMPRESSIONS: 1. Upht-gm-tguruete 3-vessel coronary artery disease. 2. Vufo-tz-jbcewxgv left main coronary artery disease that appears unchanged from prior angiography. 3. Normal global left ventricular systolic function by noninvasive imaging. 4. Severely elevated right-sided heart pressures by echocardiography. RECOMMENDATIONS:1. Aggressive cardiovascular risk factor modification. 2. Optimization of medical management; will increase his Lasix to 40 mg p.o. b.i.d. with a followupbasic metabolic panel in a week. 3. We [...] ventricular systolic function. The left atrium is severely enlarged. No thrombus seen in the left atrial appendage. The right atrium is mildly enlarged. The mitral valve is normal in mobility and thickness. Mild mitral regurgitation. Mild tricuspid regurgitation. Normal pulmonary valve Mild pulmonary regurgitation. Moderate atherosclerotic plaque is seen in the aorta. Pulmonary veins appear normal. No intracardiac shunt by Doppler color flow. - Biphasic cardioversion was performed at 300 J, the patient was converted to sinus rhythm - At the time of ALEJANDRA/Cardioversion - the rhythm confirmed by Doppler was atrial flutter with conversion to normal sinus rhythm. Echocardiogram 02/2024: Global left ventricular systolic function is difficult to assess but appears preserved; EF 55 to 60%. Normal right ventricular size and systolic function. Biatrial enlargement. Mildly increased left ventricular wall thickness. Mild mitral regurgitation. Anterior free space; trivial effusion versus fat pad Stress test 03/22/2024: No acute or reversible ischemia Ejection fraction 67% Assessment: Falls - likely musculoskeletal Coronary artery disease; 2019 Wihg-yu-iympiwzl 3-vessel coronary artery disease. Essential hypertension Longstanding, persistent atrial fibrillation Episodic bradycardia Hypotension due to medications Gross hematuria Dyspnea on exertion Lower extremity edema Chronic lymphedema Tender nipples Plan: Continue guideline directed medical therapy for coronary artery disease include Eliquis and lieu ofan antiplatelet as well as high intensity statin; he is also on a beta-azra Device interrogation per protocol Continue Eliquis; monitor for signs of bleeding Will stop spironolactone given concerns regarding gynecomastia; will check a basic metabolic panel in a week If his tenderness nipples do not improve, I have asked him to discuss this with his family physician Aggressive cardiovascular risk factor modification Return to clinic in 4-6 months or sooner should problems arise Shiloh Hester MD, MPH, FACC, [facility], [facility] Interventional Cardiology Pager Email: [email or web address] documented in this encounter Plan of Treatment DateTypeDepartmentCare Team (Latest Contact Info)Qsndzvlvknp23/ 10:30 AM ESTAncillary Procedure [facility] [address] [place] [address] NameTypePriorityAssociated DiagnosesOrder ScheduleBasic metabolic panelLab Routine Primary hypertension Expected: 09/25/2025 (Approximate), Expires: 09/25/2026documented as of this encounter Visit Diagnoses Diagnosis Primary hypertension- Primary Unspecified essential hypertension Falls frequently Personal history of fall Hypotension due to drugs Other iatrogenic hypotension Longstanding persistent atrial fibrillation (CMS/HCC) Chronic a-fib (CMS/HCC) Atrial fibrillation Pacemaker Cardiac pacemaker in situ Atrial fibrillation with slow ventricular response (CMS/HCC) Cardiac pacemaker in situ documented in this encounter Care Teams Team MemberRelationshipSpecialtyStart DateEnd Javier Gould MD [address] [facility] [address] [address] PCP - General05/10/23documented as of this encounter
--- OUTSIDE RECORDS SUMMARY | 2025-10-06 11:31 | XMS_ITS | Patient Health Record ---
Author Organization [facility] Address [address] [place] [address] Support Name Relationship Address Phone Oscar Cox Guarantor Unknown [phone] Reason For Referral No Information Problems Problem Type SNOMED Code ICD Code Onset Dates Problem Status W/U Status Risk Notes Problem Knee joint effusion (548563243) Effusion of bursa of knee, left (M25.462) ActiveconfirmedProblemFall (1007401)Fall (W19.XXXA)ActiveconfirmedProblem Contusion of knee (01738084)Contusion of knee, left (S80.02XA)Activeconfirmed Plan Of Treatment No Information Insurance Providers Payer Name Payer Address Payer Phone Subscriber Number Group Number Insured Name Patient Relationship to Insured Coverage Start Date Coverage End Date Medicare [place] [employer] [address] [place] [address] [id number] Oscar Cox Self - patient is the insured
--- OUTSIDE RECORDS SUMMARY | 2025-10-06 11:31 | XMS_ITS | Clinical Summary ---
Author Organization [facility] Address [address] [place] [address] Care Team Providers Care It Manager Name Role Phone Javier Gould MD Primary Care Provider [phone] Melanie Noel DO Unavailable Allergies No known active allergies Medications MedicationSigDispense QuantityRefillsLast FilledStart DateEnd DateStatus atorvastatin (Lipitor) 80 MG tablet Oral for 90Active oxybutynin (Ditropan) 2.5 mg split tablet if neededActive acetaminophen (Tylenol) 325 MG tablet every 4 (four) hours.Active apixaban (Eliquis) 5 MG tablet take 1 tablet by mouth twice a day Oral for 30Active furosemide (Lasix) 40 MG tablet 1 (one) time each day at the same time.Active hyoscyamine (Anaspaz,Levsin) 0.125 MG tablet 1 Orally BID prnActive hydrALAZINE (Apresoline) 50 MG tablet Take 50 mg by mouth in the morning and 50 mg in the evening.Active baclofen (Lioresal) 5 MG tablet every 12 (twelve) hoursActive rOPINIRole (Requip) 1 MG tablet Take 1 mg by mouth at bedtimeActive DULoxetine (Cymbalta) [address] capsule Take 20 mg by mouth Daily Do not crush or chew.Active levothyroxine (Synthroid, Levoxyl) 50 MCG tablet 50 mcg5Active Active Problems ProblemNoted DateDiagnosed DateAcquired hallux pgyiqg2503/28/2023rthritis of left hip03/28/2023rthritis of right knee03/28/2023ifficulty fburokw3703/28/2023 Onychomycosis due to bctojpmrcqfv10/13/2023Peripheral venous insufficiency 3Presence of right artificial hip joint3Primary osteoarthritis of left knee3Primary osteoarthritis of right hip03/28/2023 Encounters DateTypeDepartmentCare EiztHdmgmodlfbe09/23/2025 2:50 PM EDTProcedure Visit [facility] [address] [place] [id number] Guero Fink DPM Ulcer of lower limb, left, with fat layer exposed (HCC) (Primary Dx); Venous insufficiency; Pain due to onychomycosis of toenails of both feet; Foot drop, left08/07/2025amboo flowsheet [facility] [address] [place] [address] [place] [id number] Guero Fink DPM 08/07/2025Travelfrom Last 3 Months Family History * Patient is adopted RelationNameStatusCommentsFatherDeceased (Age 82)MotherDeceased (Age 91) Social History Tobacco UseTypesPacks/DayYears UsedDateSmoking Tobacco: FormerCigarettesQuit: 1983Smokeless Tobacco: Never Tobacco Cessation:Counseling Given: Yes Alcohol UseStandard Drinks/WeekCommentsNot Currently0 (1 standard drink = 0.6 oz pure alcohol)Caffeine 1-2 cups per daySex and Gender InformationValueDate RecordedSex Assigned at BirthNot on fileLegal UaqAdpr6612/28/2022 6:47 PM EDT Gender IdentityNot on fileSexual OrientationNot on file Last Filed Vital Signs Vital SignReadingTime TakenCommentsBlood Wxwiwjha14/6203 4:22 PM EST Xomuw865909/03/2024 4:01 PM ESTTemperature--Respiratory Hdpp8290 2:51 PM EDTOxygen Txucxvwgli06%09/03/2024 4:01 PM ESTInhaled Oxygen Concentration-- Timcvw135 kg (225 lb)08/07/2025 2:51 PM PUUCdwwsq912.8 cm (5' 10 )08/07/2025 2:51 PM EDTBody Mass Index32.281 2:51 PM EDT Plan of Treatment DateTypeDepartmentCare Team (Latest Contact Info)Lzaqvzhddam47/22/2026 2:00 PM ESTProcedure Visit [facility] [address] [facility] [address] [place] [address] Guero Fink, DPLaura [address] [facility] [address] [place] [address] Insurance Care Teams Team MemberRelationshipSpecialtyStart DateEnd Date Javier Gould MD [address] [facility] [place] [address] [phone] PCP - GeneralFamily Medicine02/24/23 Melanie Noel DO [address] [place], [place] [address] Referring EmaylpbkjRhpzacglp57/16/24
--- OUTSIDE RECORDS SUMMARY | 2025-10-06 11:31 | XMS_ITS ---
Author Organization [facility] Address [address] [place] [address] Care Team Providers Care Operations Administrative Assistant Name Role Phone Javier Gould MD Primary Care Provider [phone] Active Problems ProblemNoted DateDiagnosed DateAcute urinary tract dfsohnnvf76/10/2025leeding xrxwhvgy63/10/2025hronic pain dqarelkj71/10/2025Degeneration of lumbar intervertebral disc09/24/2025Diverticular disease of colon09/24/2025Edema, eqhjekzaenb74/10/2025General qrxuwhot73/10/3029Sqfictnms71/10/2025History of fall09/24/20253574Smtwvplzolyoek95/10/2025Iron deficiency jebkaa6509/24/2025Left breast mass09/24/2025Longstanding persistent atrial thiludenlssy80/10/2025 Lumbosacral spondylosis without mxhweeexml60/10/2025Muscle pain09/24/2025 Lsilpdhkvkz63/10/2025Persistent dmabvkuib19/10/2025Polyp of colon09/24/2025 Pressure ulcer of unspecified site, stage Primary localized osteoarthritis of pelvic region and thigh09/24/2025Recurrent falls09/24/2025 Rotator cuff tear09/24/2025Pain in joint involving pelvic region and thigh 09/24/2025Vitreous glwjollmqfaf02/10/2025Tachy-rasheed /21/2025Sick sinus yuzkmnzp51/21/2025Lymphedema of both lower ynqfxvrwjog44/21/2025 Assessment & Plan (03/05/2025 6:31 PM EDT): -Continue diuretics as ordered and continue to follow with wound care Acquired iwxalejeyxebpj19/21/2025 Assessment & Plan (03/05/2025 6:31 PM EDT): -Continue levothyroxine Other bndenozlwavqly36/21/2025 Assessment & Plan (03/05/2025 6:31 PM EDT): -Continue atorvastatin Wound of left lower bwalddlxr57/21/2025 Assessment & Plan (03/05/2025 7:18 PM EDT): - 16 stitches placed left lower extremity at [facility] after fall today -Wound care has been consulted Contusion of knee02/18/2025Fall02/18/2025Knee joint fpnqujmz38/06/2025ervical disc eroyeda77hronic tvizzkxskbivmqa32 Rzfshtwa20History of prostate Assessment & Plan (03/05/2025 6:31 PM EDT): -Continue outpatient follow-up with urology History of colonic uzrxqv88Heart failure, wcoqysygp21/12/2024 11/27/2023Lower extremity edemacute on chronic combined systolic (congestive) and diastolic (congestive) heart tzvcxnx9705/02/2023 11/27/2023trial fibrillation with slow ventricular svehmekv45 Assessment & Plan (03/05/2025 6:31 PM EDT): - Single-chamber pacemaker placed on 03/05/2025 by cardiology team -Occlusive dressing to be removed after 2 weeks -No lifting heavy weights using the arm on the same side as the pacemaker -Patient to follow-up in the clinic in 1 week -Repeat CXR has been ordered for midnight for follow-up -Holding anticoagulation overnight as patient is postop -Cardiology consult Bradycardia, pfeqncmwcnh98/18/202302/ognitive communication deficit therosclerotic heart disease of [place] coronary artery without angina rtrekwjb32/09/2024 Assessment & Plan (03/05/2025 6:31 PM EDT): -Continue GDMT Xyxkwcyyyfi12Muscle weakness (generalized) Repeated fallsognitive communication dpxywnxe11/18/2023Hip pain05/02/2023Morbid cnfeqhf6005/02/2023cquired hallux mscjfe65 Arthritis of left hiprthritis of right knee03/28/2023 05/11/2023ifficulty tuoubei83Onychomycosis due to tfibzaopxaeq25eripheral venous hzrpekyjrfojq82/13/2023 05/11/2023resence of right artificial hip jointrimary osteoarthritis of left kneerimary osteoarthritis of right hipHydrocele Overview (05/11/2023): Right hydrocele - confirmed on u/s 05/02 - At this point it is relatively small. If it becomes larger we can repair surgically. 04/29/20: Reports recent enlargement. Exam benign. He is having some issues with edema. To be safe, will repeat US 11/09/20: Ultrasound bilateral hydroceles Body mass index 40.0-44.9, adultUrge incontinence of urine Overview (05/11/2023): Urge incontinence, Improved with oxybutnin use prn starting 201604/07/20: Progressive issues. Plan to change from oxybutynin 5 mg to vesicare 5 mg for longer action 11/10/20: Prefers oxybutynin. 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 PSA 6.1 On active surveillance Prostate MRI 06/30 with no suspicious foci (volume 24) Rising PSA 14.24 June 2016 Repeat PSA 14.01 September 2016 Repeat biopsy October 2016 Benign PSA continues to be elevated and fluctuating. His exam is benign. WHile possible that he has a moreaggressive tumor despite negative biopsies, he has had [...] psa, on active surveillance. Plan repeat pus/bx Primary Assessment & Plan (03/05/2025 6:31 PM EDT): - Continue Coreg Primary bfvyvxnxyimxeb06hronic ischemic heart disease 04/17/3Premature beats Current Treatment and Therapy Plans No current plan information found. Past Treatment and Therapy Plans No past plan information found. Lifetime Dose Tracking * ChemicalLifetime DoseAutomatic EntryManual EntryFluoro Time6.4 minutes0 minutes6.4 minutesAir Shymn195 mGy0 hVd359 mGyDose Area Product4,059 mGy-cm20 mGy-cm24,059 mGy-cm2
--- OUTSIDE RECORDS SUMMARY | 2025-10-06 11:31 | XMS_ITS | Clinical Summary ---
Author Organization [facility] Address [address], [address] [place] [address] Care Team Providers Care Electric Truck Operator Name Role Phone Javier Gould MD Primary Care Provider [phone] Allergies No known active allergies Medications MedicationSigDispense QuantityRefillsLast FilledStart DateEnd DateStatus metoprolol (LOPRESSOR) 100 MG tablet Take 100 mg by mouth 2 times dailyActive atorvastatin (LIPITOR) 80 MG tablet Take 80 mg by mouth dailyActive losartan (COZAAR) 100 MG tablet Take 100 mg by mouth dailyActive amLODIPine (NORVASC) 10 MG tablet Take 10 mg by mouth dailyActive apixaban (ELIQUIS) 5 MG TABS tablet Take by mouth 2 times dailyActive oxybutynin (DITROPAN) 5 MG tablet Take 5 mg by mouth 3 times dailyActive DULoxetine (CYMBALTA) 30 MG extended release capsule Take 30 mg by mouth dailyActive celecoxib (CELEBREX) 100 MG capsule Take 100 mg by mouth 2 times dailyActive carvedilol (COREG) 12.5 MG tablet Take 12.5 mg by mouth 2 times daily (with meals)Active Social History Tobacco UseTypesPacks/DayYears UsedDateSmoking Tobacco: NeverSmokeless Tobacco: NeverSex and Gender InformationValueDate RecordedSex Assigned at BirthNot on fileLegal CcpRkbq3011/25/2012 9:18 AM ESTGender IdentityNot on fileSexual OrientationNot on file Last Filed Vital Signs Vital SignReadingTime TakenCommentsBlood Pressure--Pulse--Atcgzpzyswm14.2 ??C (97.1 ??F)12/11/2020 3:09 PM ESTRespiratory Rate--Oxygen Saturation--Inhaled Oxygen Concentration--Umgrin580.7 kg (275 lb)12/11/2020 3:09 PM WCQOkimqo353.8 cm (5' 10 )12/11/2020 3:09 PM ESTBody Mass Index39.46012/11/2020 3:09 PM EST Plan of Treatment Not on file Care Teams Team MemberRelationshipSpecialtyStart DateEnd Javier Gould MD [address] [place] [address] [facility]
--- OUTSIDE RECORDS SUMMARY | 2025-10-06 11:31 | XMS_ITS | Patient Health Record ---
Author Organization [facility] Address [address] [place] [address] [place] [address] Care Team Providers Care Tinner Automatic Name Role Phone Korina Willard Primary Care Provider UnavailGiancarlo Pearson Unavailable [phone] Reason For Referral No Information Plan Of Treatment No Information Insurance Providers Payer Name Payer Address Payer Phone Subscriber Number Group Number Insured Name Patient Relationship to Insured Coverage Start Date Coverage End Date [employer] Blue [employer] and Blue Shield [address] [place] [address] [id number], PaulSelf - patient is the insured
--- OUTSIDE RECORDS SUMMARY | 2025-10-06 11:31 | XMS_ITS | Clinical Summary ---
Author Organization [facility] Address [address] [place] [address] Care Team Providers Care [employer] Name Role Phone Javier Gould MD Primary Care Provider [phone] Allergies No known active allergies Medications MedicationSigDispense QuantityRefillsLast FilledStart DateEnd DateStatus atorvastatin (Lipitor) 80 mg tablet Take 1 tablet by mouth at bedtime.Active furosemide (Lasix) 40 mg tablet Take 40 mg by mouth twice a day.Active oxybutynin (Ditropan) 5 mg tablet Take 1 tablet by mouth in the morning, afternoon, and at bedtime.03/14/2023 Active apixaban (Eliquis) 5 mg tablet Indications:Longstanding persistent atrial fibrillation (CMS/HCC)Take 1 tablet (5 mg) by mouth in the morning and at bedtime. 180 tablet ctive rOPINIRole (Requip) 1 mg tablet Take 1 mg by mouth at bedtime.Active carvedilol (Coreg) 6.25 mg tablet Take 6.25 mg by mouth with breakfast and with evening meal.06/01/2024ctive DULoxetine (Cymbalta) [address] capsule Take 20 mg by mouth at bedtime.06/27/2024ctive levothyroxine (Synthroid, Levoxyl) 50 mcg tablet Take 50 mcg by mouth before breakfast.10/19/2024tive hydrALAZINE (Apresoline) 50 mg tablet Indications:Sick sinus syndrome (CMS/HCC)Take 1 tablet (50 mg) by mouth two times daily for 196 doses. 60 tablet 5Active spironolactone (Aldactone) 50 mg tablet Indications:Sick sinus syndrome (CMS/HCC)Take 1 tablet (50 mg) by mouth Twice daily at 6am and 6pm. 60 tablet 03/07/2025tive acetaminophen (Tylenol) 500 mg tablet Take 500 mg by mouth every 6 (six) hours if needed for mild pain (1-3 pain score).09/25/2025Discontinued Active Problems ProblemNoted DateDiagnosed DateAcute urinary tract dpawxujdj03/10/2025leeding hlhxnnyb11/10/2025hronic pain /10/2025Degeneration of lumbar intervertebral disc09/24/2025Diverticular disease of colon09/24/2025Edema, ejvcqjnsewr45/10/2025General nsfgoifo17/10/2406Epuecsdrx09/10/2025History of fall09/24/20257068Bqfzyezbyilsaf85/10/2025Iron deficiency ifbspl1909/24/2025Left breast mass09/24/2025Longstanding persistent atrial kbeiiqmfeiib70/10/2025 Lumbosacral spondylosis without weulpjnyjl54/10/2025Muscle pain09/24/2025 Ryqelkhbpqn35/10/2025Persistent obxzkajum28/10/2025Polyp of colon09/24/2025 Pressure ulcer of unspecified site, stage Primary localized osteoarthritis of pelvic region and thigh09/24/2025Recurrent falls09/24/2025 Rotator cuff tear09/24/2025Pain in joint involving pelvic region and thigh 09/24/2025Vitreous yghmewaziatj56/10/2025Tachy-rasheed jywqjgrc55/21/2025Sick sinus egqeosvf96/21/2025Lymphedema of both lower agczoqybymu48/21/2025 Assessment & Plan (03/05/2025 6:31 PM EDT): -Continue diuretics as ordered and continue to follow with wound care Acquired yfjxgrndqdhleq61/21/2025 Assessment & Plan (03/05/2025 6:31 PM EDT): -Continue levothyroxine Other uxxeahneoqixrk80/21/2025 Assessment & Plan (03/05/2025 6:31 PM EDT): -Continue atorvastatin Wound of left lower kgtpaaeaa74/21/2025 Assessment & Plan (03/05/2025 7:18 PM EDT): - 16 stitches placed left lower extremity at [facility] after fall today -Wound care has been consulted Contusion of knee02/18/2025Fall02/18/2025Knee joint /06/2025ervical disc aaxbuho89hronic koioohacfyugrhq33 Sadwrlgz41History of prostate dnotpr61 Assessment & Plan (03/05/2025 6:31 PM EDT): -Continue outpatient follow-up with urology History of colonic pjbdkf17Heart failure, kqaopjkba91/12/2024 11/27/2023Lower extremity edemacute on chronic combined systolic (congestive) and diastolic (congestive) heart ntrbnsh0405/02/2023 11/27/2023trial fibrillation with slow ventricular Assessment & Plan (03/05/2025 6:31 PM EDT): [...] as patient is postop -Cardiology consult Bradycardia, yzdmpfqbxdp05ognitive communication 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 Will need permission to hold [employer] 09/18/19 PUS/Bx, vol 21.3 gms 10/01/19: [place] 3+3=6 in <5% of 2 cores right [...] on active surveillance. Plan repeat pus/bx Primary wquikegqzbpm82 Assessment & Plan (03/05/2025 6:31 PM EDT): - Continue Coreg Primary wgxzrivhqyjdpz78hronic ischemic heart disease remature beats Encounters DateTypeDepartmentCare LovzNkjdmcinaku23/11/2025 2:15 PM ESTOffice Visit [facility] [address] [place] [address] Shiloh Hester MD Primary hypertension (Primary Dx); Falls frequently; Hypotension due to drugs; Longstanding persistent atrial fibrillation (CMS/HCC); Chronic a-fib (CMS/HCC); Pacemaker; Atrial fibrillation with slow ventricular response (CMS/HCC); Cardiac pacemaker in situ07/07/2025 10:45 AM EDTAncillary Procedure [facility] [address] [place] [address] Adjustment and management of cardiac pacemakerfrom Last 3 Months Family History RelationNameStatusCommentsFatherDeceasedMotherDeceased Social History Tobacco UseTypesPacks/DayYears UsedDateSmoking Tobacco: FormerCigarettes Smokeless Tobacco: Never Tobacco Cessation:Counseling Given: Not Answered Alcohol UseStandard Drinks/WeekCommentsNot Currently0 (1 standard drink = 0.6 oz pure alcohol)[facility] UtilitiesAnswerDate RecordedIn the past 12 months has the [employer], gas, oil, or water [employer] threatened to shut off services in your home?No03/05/2025Humiliation, Afraid, Rape, and Kick questionnaireAnswerDate RecordedWithin the last year, have you been afraid of your partner or ex-partner?No03/05/2025Emotionally AbusedNot on file03/05/2025Physically Abused Not on file05/21/2025Sexually AbusedNot on file03/05/2025Overall Financial Resource Strain (CARDIA)AnswerDate RecordedHow hard is it for you to pay for the very basics like food, housing, medical care, and heating?Not hard at all 03/05/2025UT Safety & EnvironmentAnswerDate RecordedFear of Current or Ex-PartnerNot on file12/07/2023Emotionally AbusedNot on file12/07/2023hysically AbusedNot on file12/07/2023Sexually AbusedNot on file12/07/2023hysically or Sexually AbusedNot on file12/07/2023TransportationAnswerDate RecordedIn the past 12 months, has lack of transportation kept you from medical appointments or from getting medications?No03/05/2025Lack of Transportation (Non-Medical)Not on file 03/05/2025Housing Stability Vital SignAnswerDate RecordedIn the last 12 months, was there a time when you were not able to pay the mortgage or rent on time?No 03/05/2025Number of Times Moved in the Last YearNot on file03/05/2025t any time in the past 12 months, were you homeless or living in a senior living (including now)? No03/05/2025Hunger Vital SignAnswerDate RecordedWithin the past 12 months, you worried that your food would run out before you got the money to buymore.Never true03/05/2025Ran Out of Food in the Last YearNot on file03/05/2025Sex and Gender InformationValueDate RecordedSex Assigned at VutsxIuuk41/01/2025 1:54 PM EDTLegal PfgLdku2804/13/2022 10:12 PM EDTGender CsmaldyjJsdh23/01/2025 1:54 PM EDT Sexual OrientationHeterosexual or Twaqeiqw15/01/2025 1:54 PM EDT Last Filed Vital Signs Vital SignReadingTime TakenCommentsBlood Beiphneo77/56111/26/2024 2:26 PM EST Abumh613309/25/2025 2:26 PM ZAYZfjcxtkxwab05.3 ??C (99.1 ??F)03/07/2025 12:25 PM EDTRespiratory Iifo932503/07/2025 2:49 PM EDTOxygen Tripippkan90%09/25/2025 2:26 PM ESTInhaled Oxygen Concentration--Qoyhyu54.1 kg (203 lb)03/18/2025 12:32 PM OBKLiguol528.3 cm (5' 11 )09/25/2025 2:26 PM ESTBody Mass Index28.31003/18/2025 12:32 PM EDT Plan of Treatment DateTypeDepartmentCare Team (Latest Contact Info)Sxuvtaolkuk90/17/2026 10:30 AM ESTAncillary Procedure [facility] [address] [place] [address] Health MaintenanceDue DateLast DoneCommentsMedicare Annual Wellness (AWV) 1946Depression Sejugqliu71/29/1958Pneumococcal Vaccine: 50+ Years (1 of 2 - PCV)1965Zoster Vaccines (1 of 2)1996COVID-19 Vaccine (3 - season)507/, 04/09/2021Influenza Vaccine (#1)2025Fall Risk Kpvpkssbb85/23/93944503/07/2025dult Nengsuu80HIB VaccinesAged OutNo longer eligible based on patient's age to complete this topicHPV Vaccines Aged OutNo longer eligible based on patient's age to complete this topicIPV VaccinesAged OutNo longer eligible based on patient's age to complete this topic Meningococcal B VaccineAged OutNo longer eligible based on patient's age to complete this topicMeningococcal VaccineAged OutNo longer eligible based on patient's age to complete this topicRotavirus VaccinesAged OutNo longer eligible based on patient's age to complete this topic Medical Devices ImplantedTypeAreaManufacturerDevice IdentifierShelf Expiration DateModel / Serial / LotIngevity+ Is-1 Bi Positive Fix Ra/Rv 59cm Implanted:Qty: 1 on 03/05/2025 [facility] CenterLeadN/A: [facility] [id number] / [id number] / Pacer,[employer] - [id number] - [id number] Implanted:Qty: 1 on 03/05/2025 by [facility] CenterPacemakerLeft: Emili [id number] / [id number] / Procedures Procedure NamePriorityDate/TimeAssociated DiagnosisCommentsCARDIAC DEVICE CHECK CHECK - LOPHGOWvbbgko33/24/2025 1:58 PM EDT Adjustment and management of cardiac pacemaker from Last 3 Months Results * CARDIAC DEVICE CHECK - REMOTE - PACEMAKER (07/09/2025 1:58 PM EDT)Specimen (Source)Anatomical Location / LateralityCollection Method / VolumeCollection TimeReceived Time Narrative Authorizing ProviderResult TypeResult StatusPaul Naresh MDCV IMPLANTABLE CARDIAC DEVICE PROCEDURESFinal ResultPerforming OrganizationAddressCity/State/ZIP Code Phone Number CPACS from Last 3 Months Insurance Advance Directives * Full Code (Latest Code Status on File) Date ActivatedDate InactivatedComments03/05/2025 6:25 PM03/07/2025 5:34 PM Care Teams Team MemberRelationshipSpecialtyStart DateEnd Date Javier Gould MD [address] [address] [facility]05/10/23
--- OUTSIDE RECORDS SUMMARY | 2025-10-06 11:32 | XMS_ITS | Patient Health Record ---
Author Organization The 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 Name Role Phone Zackery Gould Primary Care Provider Allergies No Known Allergies Results Component Value Reference Range Notes FREE T3 Reviewed date:02/06/2025 06:41:27 PM Interpretation: Performing Lab: Notes/Report: [facility] , Free T3 2.63 2.18-3.98 pg/mL Performing Lab:see noteML - [facility] LBGLYCOHEMOGLOBIN A1C Reviewed date:02/06/2025 06:41:27 PM Interpretation: Performing Lab: Notes/Report: [facility] ,Glycohemoglobin A1C5.34.5-6.2 % ADA RECOMMENDED LIMIT 4.0 - 6.0 ADA THERAPEUTIC TARGET < 7.0 ACTION SUGGESTED > 7.0 Estimated Average Wemyklf304Fkvuttcuhb Lab:see noteML - [facility] LB LIPID PROFILE Reviewed date:02/06/2025 06:41:27 PM Interpretation: Performing Lab: Notes/Report: [facility] ,Fzdgbsgsrdffo40<=150 mg/dTNlpdumqnwkb903<=200 mg/dLHDL Hbffzghueje2501-90 mg/dL > or =60 mg/dl - LOW CARDIOVASCULAR RISK <40 mg/dl - HIGH CARDIOVASCULAR RISK LDL Cholesterol Ezhlfikfdt24.0 <100 mg/dl OPTIMAL 100-129 mg/dl NEAR OR ABOVE OPTIMAL 130-159 mg/dl BORDERLINE HIGH 160-189 mg/dl HIGH >190 mg/dl VERY HIGH VLDL XJSBCILAPUI04.8Chol HDL Ratio2.0 3.3 - 4.4 LOW RISK 4.4 - 7.1 AVERAGE RISK 7.1 - 11.0 MODERATE RISK >11.0 HIGH RISK Performing Lab:see noteML - [facility] LBPROF 14(COMP METB) Reviewed date:02/06/2025 06:41:27 PM Interpretation: Performing Lab: Notes/Report: [facility] ,Haiqen964683-409 mmol/LPotassium3.93.5-5.1 mmol/OXbnrmzal65604-918 mmol/LCarbon Eohvawx11.021.0-32.0 mmol/LAnion Gap10.6Fwooexw6261-941 mg/dLBlood Urea Nitrogen 22.07.0-18.0 mg/dLCreatinine1.180.70-1.30 mg/dLEstimated GFR ( Anjali>60 >=60 mL/min/1.73m 2Estimated GFR (Non- Ame60>=60 mL/min/1.73m 2BUN Creatinine Ratio18.6[place]seborg7.88.5-10.1 mg/dLBilirubin Total0.70.2-1.0 mg/dL Aspartate Amino Gaqfjfnywsv7187-85 U/LAlanine Zkdjrxoczlgyscga3133-35 U/L Alkaline Tdnmlhhmhzr98764-119 U/LTotal Protein6.66.4-8.2 g/dLAlbumin Level3.3 3.4-5.0 g/dLGlobulin3.3Albumin Globulin Ratio1.0Performing Lab:see noteML - [facility] LBPSA SCREENING Reviewed date:02/06/2025 06:41:27 PM Interpretation: Performing Lab: Notes/Report: [facility] ,Prostate Specific Antigen Scrn<0.13<=4.00 ng/mLPerforming Lab:see noteML - [facility] LBT4 Reviewed date:02/06/2025 06:41:27 PM Interpretation: Performing Lab: Notes/Report: [facility] ,T4 Thyroxine9.804.50-12.10 ug/dLPerforming Lab:see note - [facility] LBTSH Reviewed date:02/06/2025 06:41:27 PM Interpretation: Performing Lab: Notes/Report: [facility] ,Thyroid Stimulating Hormone2.8810.358-3.740 uIU/mLPerforming Lab:see noteML - [facility] LBCBC AUTO DIFF Reviewed date:02/06/2025 06:41:27 PM Interpretation: Performing Lab: Notes/Report: [facility] ,White Blood Count3.94.0-11.0 10 3/uLRed Blood Count3.804.70-6.10 10 6/uL Fbnrsulmwx95.514.0-18.0 g/yPXycroosbkm96.542.0-54.0 %Mean Corpuscular Tbajqt34.4 80.0-94.0 fLMean Corpuscular Fxbezruwds04.325.9-34.0 pgMean Corpuscular HGB Conc 32.429.9-35.2 g/dLRed Cell Distribution Width16.711.0-15.0 %Platelet Vruvu972 150-450 10 3/uLMean Platelet Yekqaj34.89.5-13.5 fLNeutrophils Percent Auto61.5 43.0-75.0 %Lymphocytes Percent Auto23.720.5-60.0 %Monocytes Percent Auto11.71.7- 12.0 %Eosinophils Percent Auto2.30.9-7.0 %Basophils Percent Auto0.50.2-2.0 % Immature Granulocytes Pct Auto0.30.0-0.5 %Neutrophils Absolute Auto2.41.4-6.5 10 3/uLLymphocytes Absolute Auto0.91.2-3.8 10 3/uLMonocytes Absolute Auto0.50.3-0.8 10 3/uLEosinophils Absolute Auto0.10.0-0.7 10 3/uLBasophils Absolute Auto0.00.0- 0.1 10 3/uLImmature Granulocytes Abs Auto0.010.00-0.03 10 3/uLPerforming Lab:see noteML - [facility] LBTSH Reviewed date:12/26/2024 06:43:01 PM Interpretation: Performing Lab: Notes/Report: [facility] ,Thyroid Stimulating Hormone2.8140.358-3.740 uIU/mLPerforming Lab:see noteML - [facility] LBT4 Reviewed date:12/26/2024 06:43:01 PM Interpretation: Performing Lab: Notes/Report: [facility] ,T4 Lvribkrah71.004.50-12.10 ug/dLPerforming Lab:see noteML - [facility] LBFREE T3 Reviewed date:12/26/2024 06:43:01 PM Interpretation: Performing Lab: Notes/Report: [facility] ,Free T32.612.18-3.98 pg/mLPerforming Lab:see noteML - [facility] LB BNP Reviewed date:02/06/2025 06:41:27 PM Interpretation: Performing Lab: Notes/Report: [facility] ,NT Pro B Type Natriuretic Hxqn1948.0<=1800.0 pg/mLPerforming Lab:see noteML - [facility] LBECG 12 lead Reviewed date:03/06/2025 12:36:12 PM Interpretation: Performing Lab: Notes/Report: Source Facility: [facility]-[address] [place] [address] [place] [address] Electrocardiograph Report Signed Patient: OSCAR COX MR#: [id number] : 1945 Acct:[id number] Age/Sex: 79 / M ADM Date: 03/05/25 Loc: ER Attending Dr: Ordering Physician: Roya Mccollum Date of Service: 03/05/25 Procedure(s): ECG 12 lead Accession Number(s): [id number] cc: [facility] Test Date: 2025-03-05 Pat Name: OSCAR COX Department: Room: - Gender: Male [employer]: : 1945 Requested By: [id number] Order Number: [id number] Reading MD: JONATHAN HARRISON M.D. Measurements Intervals [place] Rate: 34 P: 226 [place]: 302 QRS: -34 QRSD: 168 T: 43 QT: 536 QTc: 431 Interpretive Statements Atrial fibrillation with slow ventricular response 2231 First degree AV block 2450 Right bundle branch block 7200 Abnormal left axis deviation 9150 abnormal ECG Compared to ECG 02/15/2024 10:10:12 Right bundle-branch block now present Left-axis deviation now present Electronically Signed On 03-05-2025 21:43:24 EDT by JONATHAN HARRISON M.D. Dictated By: JONATHAN HARRISON Signed By: 03/05/25 2143 DD/ 0413 TD/TT: Director Of Marketing:Troponin I High Sensitivity Reviewed date:03/05/2025 09:07:00 AM Interpretation: Performing Lab: Notes/Report: [facility] ,Troponin I High Cmwpctxwdwy85.84.0-76.1 pg/mL CUT-OFF POINTS HAVE BEEN ESTABLISHED BASED ON THE FOURTH UNIVERSAL DEFINITION OF MYOCARDIAL INFARCTION. THE UPPER REFERENCE LIMIT (URL) OF TROPONIN, DEFINED THE 99TH PERCENTILE OF cTnI DISTRIBUTION IN A REFERENCE POPULATION, HAS BEEN CONFIRMED THE DECISION THRESHOLD FOR TN DIAGNOSIS. 99TH PERCENTILE = 76.2 PG/ML NOTE: HIGH-SENSITIVITY TROPONIN ASSAY IS NOT INTENDED TO BE USED IN ISOLATION BUT SHOULD BE INTERPRETED IN CONJUNCTION WITH OTHER DIAGNOSTIC AND CLINICAL INFORMATION. Performing Lab:see noteML - [facility] LBPROF 14(COMP METB) Reviewed date:03/05/2025 09:07:00 AM Interpretation: Performing Lab: Notes/Report: [facility] ,Vdplnv484507-298 mmol/LPotassium3.93.5-5.1 mmol/BTdrjrmew07618-408 mmol/LCarbon Oytcjge69.321.0-32.0 mmol/LAnion Gap9.5Ligxmdb96591-492 mg/dLBlood Urea Nitrogen 24.07.0-18.0 mg/dLCreatinine1.100.70-1.30 mg/dLEstimated GFR ( Anjali>60 >=60 mL/min/1.73m 2Estimated GFR (Non- Jennifer>60>=60 mL/min/1.73m 2BUN Creatinine Ratio21.3Kcgutzf70.38.5-10.1 mg/dLBilirubin Total0.40.2-1.0 mg/dL Aspartate Amino Miflhvyhhzu7721-26 U/LAlanine Augklummnwonajjt0051-08 U/L Alkaline Sfophzodozm27986-959 U/LTotal Protein6.86.4-8.2 g/dLAlbumin Level3.2 3.4-5.0 g/dLGlobulin3.6Albumin Globulin Ratio0.9Performing Lab:see noteML - [facility] LBCBC AUTO DIFF Reviewed date:03/05/2025 09:07:00 AM Interpretation: Performing Lab: Notes/Report: [facility] ,White Blood Count7.04.0-11.0 10 3/uLRed Blood Count4.044.70-6.10 10 6/uL Myxagzjgnq18.214.0-18.0 g/lLSwtrvrkkym00.242.0-54.0 %Mean Corpuscular Wxijrn92.6 80.0-94.0 fLMean Corpuscular Hzmbvnrevr88.225.9-34.0 pgMean Corpuscular HGB Conc 31.929.9-35.2 g/dLRed Cell Distribution Width15.911.0-15.0 %Platelet Erljn455 150-450 10 3/uLMean Platelet Azminp24.79.5-13.5 fLNeutrophils Percent Auto82.9 43.0-75.0 %Lymphocytes Percent Auto8.520.5-60.0 %Monocytes Percent Auto7.31.7- 12.0 %Eosinophils Percent Auto0.60.9-7.0 %Basophils Percent Auto0.40.2-2.0 % Immature Granulocytes Pct Auto0.30.0-0.5 %Neutrophils Absolute Auto5.81.4-6.5 10 3/uLLymphocytes Absolute Auto0.61.2-3.8 10 3/uLMonocytes Absolute Auto0.50.3-0.8 10 3/uLEosinophils Absolute Auto0.00.0-0.7 10 3/uLBasophils Absolute Auto0.00.0- 0.1 10 3/uLImmature Granulocytes Abs Auto0.020.00-0.03 10 3/uLPerforming Lab:see noteML - [facility] LB Reason For Referral Diagnosis 1 CAD (coronary artery disease) (I25.10) Diagnosis 2 Hypertension (I10) Diagnosis 3 Anemia, iron deficie ncy (D50.9) Diagnosis 4 Atrial fibrillation (I48.91) Diagnosis 5 Weakness (R53.1) Diagnosis 6 Fall (W19.XXXA) Diagnosis 7 Acute kidney failure (N17.9) Referral Organization [facility] Medicine Referring Provider First Name Zackery Referring Provider Last Name Luis Fernando Referring Provider Speciality [facility] icine Referred Provider [facility] Referred Provider Specialty [facility] Referral Priority Routine Medications Medication SIG (Take, Route, Frequency, Duration) Notes Start Date End Date Status Synthroid 50 MCG 1 tablet in the morn ing on an empty stomach Orally Once a day; Duration: 30 days 09/24/2024ctiveDULoxetine HCl 20 MG1 capsule Orally Once a day; Duration: 30 daysActiveCarvedilol 6.25 MG1 tablet with food Orally Twice a day; Duration: 30 daysActiveAmoxicillin 500 MG4 caps Orally once; Duration: 1 days08/26/2025tive Atorvastatin Calcium 80 mgTAKE 1 TABLET BY MOUTH DAILY; Duration: 30 daysActive Acetaminophen 500 MG1 capsule as needed Orally every 6 hrs PRN03/20/2024ctive oxyBUTYnin Chloride 5 MG1 tablet Orally TIDPRNActivehydrALAZINE HCl 50 MG1 tablet with food Orally twice daily; Duration: 30 days03/20/2024ctiveFurosemide 40 mgTake 1 tablet orally twice daily; Duration: 90 daysActiveEliquis 5 MG1 tablet Orally BID; Duration: 30 daysActiveSpironolactone 50 MG1 tablet Orally bid; Duration: 30 days06/26/2024ctiverOPINIRole HCl 1 MG1 tablet 1 to 3 hours before bedtime Orally Once a day; Duration: 30 days03/20/2024ctive Social History Tobacco Use: Social History Observation Description Date Details (start date - stop date) Never Smoker NA - NA Tobacco Use/Smoking Question Answer Notes Patient is a nonsmoker Alcohol Screen (Audit-C) Question Answer Notes Did you have a drink containing alcohol in the p ast year? No Lgkjiq3CvzwzvxtirevkhCawzhazhDDNLM-S (Standard) Question Answer Notes Did you have a drink containing alcohol in the p ast year? 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)ActiveconfirmedProblemAcute on chronic diastolic heart failure (063096391)Acute on chronic diastolic (congestive) heart failure (I50.33)ActiveconfirmedProblemDiverticular disease of colon (051109445) Diverticulosis of large intestine without perforation or abscess without bleeding (K57.30)ActiveconfirmedProblemPolyp of colon (20919958)Polyp of colon (K63.5)ActiveconfirmedProblemLocalized, primary osteoarthritis of the pelvic region and thigh (559073838)Unilateral primary osteoarthritis, left hip (M16.12) ActiveconfirmedProblemLumbosacral spondylosis without myelopathy (36958287) Spondylosis without myelopathy or radiculopathy, lumbar region (M47.816)Active confirmedProblemDegeneration of lumbar intervertebral disc (52925150)Other intervertebral disc degeneration, lumbar region (M51.36)ActiveconfirmedProblem Urge incontinence of urine (62257984)Urge incontinence (N39.41)Activeconfirmed ProblemParesthesia (finding) (16105141)Paresthesia of skin (R20.2)Active confirmedProblemAtrial fibrillation (71564173)Atrial fibrillation (I48.91)Active confirmedProblemMorbid obesity (345111120)Morbid obesity (E66.01)Activeconfirmed ProblemHypertension (58824726)Hypertension (I10)ActiveconfirmedProblem Hypothyroidism (01752992)Hypothyroidism (E03.9)ActiveconfirmedProblemAtrial fibrillation (disorder) (43264285)Afib (I48.91)ActiveconfirmedProblemCoronary artery disease (57506141)CAD (coronary artery disease) (I25.10)Activeconfirmed ProblemPeripheral edema (40807821)Peripheral edema (R60.9)ActiveconfirmedProblem Knee pain (4500587832)Knee pain (M25.569)ActiveconfirmedProblemHematuria (59044210)Hematuria (R31.9)ActiveconfirmedProblemArthralgia of the pelvic region and thigh (623076345)Hip pain, right (M25.551)ActiveconfirmedProblemArthralgia of the pelvic region and thigh (331504510)Hip pain, left (M25.552)Active confirmedProblemDiarrhea (98282021)Diarrhea (R19.7)ActiveconfirmedProblem Shoulder joint pain (512647330)Shoulder pain, right (M25.511)Activeconfirmed ProblemLocalized, primary osteoarthritis of the shoulder region (245211207) 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)ActiveconfirmedProblemCervical spondylosis (132661712)Cervical spondylosis (M47.812)ActiveconfirmedProblem Arthritis of right knee (4207761722394841)Arthritis of right knee (M19.90)Active confirmedProblemRotator cuff tear (840351650)Rotator cuff tear (M75.100)Active confirmedProblemRecurrent falls (984262701)Frequent falls (R29.6)Activeconfirmed ProblemIron deficiency anemia (98928042)Anemia, iron deficiency (D50.9)Active confirmedProblemBleeding disorder (53522059)Bleeding disorder (D68.9)Active confirmedProblemGeneral weakness (66115512)General weakness (R53.1)Active confirmedProblemUnable to walk (731793292)Unable to walk (R26.2)Activeconfirmed ProblemAcute urinary tract infection (095308035)Acute UTI (N39.0)Activeconfirmed ProblemLong-term current use of anticoagulant (502020962)Anticoagulated (Z79.01) ActiveconfirmedProblemHistory of fall (440537244)Status post fall (Z91.81)Active confirmedProblemEssential hypertension (78726391)BP (high blood pressure) (I10) ActiveconfirmedProblemPressure injury stage II (disorder) (1825311640)Decubitus skin ulcer, stage II (L89.92)ActiveconfirmedProblemBreast mass (87044766)Left breast mass (N63.20)ActiveconfirmedProblemMuscle pain (73549465)Myalgia, unspecified site (M79.10)ActiveconfirmedProblemMyofascial pain (318931200) Myofascial pain (M79.18)ActiveconfirmedProblemLongstanding persistent atrial fibrillation (910972678)Longstanding persistent atrial fibrillation (I48.11) ActiveconfirmedProblemPersistent hematuria (177154215)Persistent hematuria (N02.9)Activeconfirmed Vital Signs Blood pressure diastolic 60 mm Hg 04/17/2025 Pfiler41 in04/17/2025lood pressure guzxbysk521 mm Hg04/17/2025 Procedures Procedure Date Ordered Date Performed Result Body Sit e Cerumen Removal - performed 02/03/2025 N/A Encounters Encounter Location Date Provider Diagnosis [address] [address] 02/03/2025 Zackery Gould Hypertension I10 ; C AD (coronary artery disease) I25.10 ; Atrial fibrillation I48.91 ; Hypothyroidism E03.9 ; Cerumen impaction H61.20 and Bilateral impacted cerumen H61.[address] [address] 04/17/2025 Zackery Gould CAD (coronary artery disease) I25.10 ; General weakness R53.1 ; Afib I48.91 ; Acute on chronic diastolic (congestive) heart failure I50.33 and Decubitus skin ulcer, stage II L89.[address] [address] 12/26/2024 Zackery Bravoy [address] [address] 02/06/2025Doug HoyAbnormal blood chemistry level R79.9B[address] [id number]/Doug HoyB[address] [address]/ Zackery LawrenceyCAD (coronary artery disease) I25.10B[address] [address]/12/2024Doug HoyCAD (coronary artery disease) I25.10 ; Hypertension I10 ; Anemia, iron deficiency D50.9 ; Atrial fib rillation I48.91 ; Weakness R53.1 ; Acute on chronic diastolic (congestive) heart failure I50.33 and [facility]17.9[facility] [place] [address]/10/2024Doug HoyCAD (coronary artery disease) I25.10BL[facility] [place] [address]/[facility]oyBL[facility] [address] [place] [address]/08/2025Doug Hoy Assessments Encounter Date Diagnosis (ICD Code) Assessment Notes Treatment Notes Treatment Clinical Notes Section Notes 02/03/2025 Hypertension (ICD-10 - I10) 02/03/2025AD (coronary artery disease) (ICD-10 - I25.10)04/17/2025AD (coronary artery disease) (ICD-10 - I25.10)SOme pressure in area of the pacer -04/17/2025 General weakness (ICD-10 - R53.1)02/06/2025bnormal blood chemistry level (ICD- 10 - R79.9)04/09/2025AD (coronary artery disease) (ICD-10 - I25.10)04/17/2025 CAD (coronary artery disease) (ICD-10 - I25.10)04/17/2025Hypertension (ICD-10 - I10)05/16/2025AD (coronary artery disease) (ICD-10 - I25.10)04/17/2025nemia, iron deficiency (ICD-10 - D50.9)04/17/2025fib (ICD-10 - I48.91)02/03/2025trial fibrillation (ICD-10 - I48.91)02/03/2025Hypothyroidism (ICD-10 - E03.9) 04/17/2025ute on chronic diastolic (congestive) heart failure (ICD-10 - I50.33)04/17/2025trial fibrillation (ICD-10 - I48.91)04/17/2025Weakness (ICD-10 - R53.1)04/17/2025Decubitus skin ulcer, stage II (ICD-10 - L89.92)need home health - wound managemtn - sydni dollar size stage 2 fhzkxiggd22/21/2025Cerumen impaction (ICD-10 - H61.20)5Bilateral impacted cerumen (ICD-10 - H61.23)5Acute on chronic diastolic (congestive) heart failure (ICD-10 - I50.33)5Acute kidney failure (ICD-10 - N17.9) Plan Of Treatment Pending Test Test Name Order Date CMP (COMPLETE METABOLIC PANEL) 4 CMP (COMPLETE METABOLIC PANEL) 3 CMP (COMPLETE METABOLIC PANEL) 4 UA (URINALYSIS, COMPLETE) 09/29/2023 HEMOGLOBIN A1C (GLYCO) 06/26/2024 HEMOGLOBIN A1C (GLYCO) 02/03/2025 LIPID PANEL (CHOL/TRIG/HDL/LDL) 02/04/20 25 LIPID PANEL (CHOL/TRIG/HDL/LDL) 06/26/20 24 CBC WITH DIFF (EXP 08/2025) 06/26/2024 Echocardiogram 07/03/2024 Cerumen Removal - performed [...] Insured Coverage Start Date Coverage End Date [employer] ADV PLAN [address] [place] [address] [phone] [id number] [facility] Self - patient is the insured 3 Medical (General) History Medical History History ICD Code Paroxysmal a-fib I48.0 Benign essential HTN I10 Adenocarcinoma of prostate C61 Occipital neuralgia M54.81 CHF with left ventricular diastolic dysf unction, NYHA class 4 I50.30 bradycardia Surgical History Surgery Date(Month/Year) Colonoscopy- Dr. Vera 04/26/2023 neck injections Pacemaker03/06/2025Hospitalization History Reason Date(Month/Year) Pacemaker 03/06/252022
[2025-10-06 12:06] LABS: Anion Gap 10.5; Blood Urea Nitrogen 19.0 mg/dL (7.0-18.0); Calcium 9.2 mg/dL (8.5-10.1); Carbon Dioxide 31.3 mmol/L (21.0-32.0); Chloride 105 mmol/L (98-107); Estimated GFR (African America >60 (>=60 mL/min/1.73m^2); Estimated GFR (Non-African Ame >60 (>=60 mL/min/1.73m^2); Glucose 85 mg/dL (74-106); Potassium 3.8 mmol/L (3.5-5.1); Sodium 143 mmol/L (136-145)
== END 2025-10-06 11:29 | disposition home or self-care (01) ==
LOC: LAB 11:28
PROVIDERS: Visit Provider Internal Medicine Interventional Cardiology
DX: I10 Essential (primary) hypertension (principal)
CPT/HCPCS: 36415; 80048